=== PATIENT | female | born 1955 | race Caucasian/White ===

== ENCOUNTER → 2017-11-02 16:05 | Outpatient (CLI) | payer OTHER, SELFPAY ==
[2017-02-01 09:11] VITALS: BP 98/55; BMI 19.8
--- NOTE | 2017-11-02 16:08 | RAD_ITS ---
STUDY: X-RAY - CERVICAL SPINE REASON FOR EXAM: Female, 62 years old. pain right side of head and neck hx of ms TECHNIQUE: 6 view(s) of the cervical spine were obtained. COMPARISON: None FINDINGS: Normal anterior atlantoaxial articulation. Normal odontoid process. Normal cervical lordosis. There is multi-level endplate spondylosis. There is multi-level degenerative disc disease with multilevel disc space narrowing. There is multi-level osseous foraminal stenosis. The soft tissue structures are unremarkable. RAD/Cerv Spine 4 or 5 Views IMPRESSION: There are degenerative changes as noted above. Electronically Signed: Juan Nickerson MD at 16:28 EST , Service support ,
== END ==
PROVIDERS: Family Provider Internal Medicine; PCP Internal Medicine; Visit Provider Nurse Practitioner Family
DX: M54.2 Cervicalgia (principal)
CPT/HCPCS: 72050

== ENCOUNTER → 2018-02-06 14:52 | Outpatient (CLI) | payer OTHER, SELFPAY ==
--- NOTE | 2018-02-06 14:54 | BI_ITS ---
MAMMOGRAPHY - BILATERAL SCREENING REASON FOR EXAM: Female, 62 years old. Routine annual screening examination. PERTINENT HISTORY: Non-contributory. TECHNIQUE: Digital bilateral breast gretchen (3D mammographic acquisition) in the CC and MLO projections. 2-D mediolateral oblique (MLO) and craniocaudad (CC) views of both breasts were obtained. CAD: Full Field Digital Mammography with Computer Added Detection was performed. COMPARISON: Comparison is made with prior study dated August 30, 2016 and February 04, 2015. FINDINGS: Breast Composition: The breasts are heterogeneously dense, which may obscure small masses. There are no dominant masses or suspicious calcifications. No other significant abnormalities are identified. There has been no significant change since the prior study. BI/SCREENING MAMM (CAD), BILAT IMPRESSION: Stable bilateral screening mammogram. Yearly follow-up mammogram recommended. (A) ASSESSMENT CATEGORY: BIRADS Category 1: Negative. A letter regarding these results will be sent to the patient by the facility within 30 days. Approximately 10% of breast cancers are not detected by mammography. A normal mammogram should not delay biopsy of a clinically suspicious abnormality. [id number] Electronically Signed: Antoine Recinos MD at 8:16 EDT Tel [phone], Service support ,
--- NOTE | 2018-02-06 14:54 | BD_ITS ---
STUDY: DUAL ENERGY X-RAY ABSORPTIOMETRY / DXA REASON FOR EXAM: Female, 62 years old. The patient is postmenopausal. Loss of height. TECHNIQUE: Bone Mineral Density (BMD) measurements of lumbar spine and bilateral hips were obtained. COMPARISON: Comparison is made with prior study dated February 04, 2015. FINDINGS: Lumbar Spine (L1-L4): g/cm2 (0.887) / T-score (-2.4) / Z-score (-1.0) Findings are suggestive of osteopenia with a moderate fracture risk. Left Femur Total: g/cm2 (0.527) / T-score (-3.8) / Z-score (-2.7) Left Femoral Neck: g/cm2 (0.543) / T-score (-3.6) / Z-score (-2.2) Right Femur Total: g/cm2 (0.761) / T-score (-2.0) / Z-score (-0.9) Right Femoral Neck: g/cm2 (0.820) / T-score (-1.6) / Z-score (-0.2) The T-Scores on the most recent prior examination were: Lumbar Spine (L1-L4): There has been worsening of bone density since the previous examination. Left Femur Total: which represents a worsening of 39.9%. Right Femur Total: which represents a worsening of 4.6%. BD/Dexa Bone Density Study IMPRESSION: The patient is considered osteoporotic as outlined below according to World Jet Organization (WHO) criteria with a high fracture risk. There has been worsening of bone density since the previous examination. Reference Information: The T-score is the number of standard deviations above or below the standard which is normal for young adults at their peak bone mineral density. The World Health Organization (WHO) interprets the T-scores as follows: Above -1 Normal bone density Between -1 and -2.5 Osteopenia Equal to / or below -2.5 Osteoporosis As a practical clinical guideline, osteopenia may be graded as follows: Mild -1 through -1.5 Moderate -1.6 through -2.0 Severe -2.1 through -2.4 The Z-score is the number of standard deviations above or below age-matched controls. A Z-score of less than -1.5 would be considered abnormal. References: 1. NIH Osteoporosis and Related Bone Diseases http://www.osteo.org 2. International Society for Clinical Densitometry http://www.iscd.org 3. National Osteoporosis Foundation http://www.nof.org Electronically Signed: Antoine Recinos MD at 15:32 EDT Tel [phone], Service support ,
== END ==
PROVIDERS: Family Provider Internal Medicine; PCP Internal Medicine; Visit Provider Internal Medicine
DX: Z12.31 Encounter for screening mammogram for malignant neoplasm of breast (principal); Z78.0 Asymptomatic menopausal state
CPT/HCPCS: 77063; 77067; 77080

== ENCOUNTER → 2018-03-20 08:30 | Outpatient (CLI) | payer OTHER, SELFPAY ==
--- NOTE | 2018-03-20 08:35 | US_ITS ---
STUDY: THYROID ULTRASOUND REASON FOR EXAM: Female, 63 years old. Nodule. TECHNIQUE: Ultrasound evaluation of the thyroid was performed with real-time and static santana-scale imaging. COMPARISON: Ultrasound thyroid 11/14/2016 FINDINGS: RIGHT LOBE: 4.7 x 0.9 x 0.9 cm. Homogeneous echotexture and normal vascular flow. Mid and upper pole nodules. Cystic and solid features with small echo reflectors likely representing colloid cysts. Sharply circumscribed margins, oval shape. 9 x 5 x 4 mm and 2 x 2 x 1 mm respectively. No significant change from prior imaging, previously measuring 8 x 5 x 4 mm. LEFT LOBE: 4.1 x 0.9 x 0.8 cm. Homogeneous echotexture and normal vascular flow. No nodules. ISTHMUS: The isthmus measures 2 mm, normal echotexture. . US/Thyroid IMPRESSION: Stable right-sided thyroid nodules. 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 Unchanged compared to imaging of 11/14/2016. Follow-up surveillance imaging in approximately one year is recommended. Electronically Signed: Andrew Martins, at 11:05 EDT Tel , Service support ,
== END ==
PROVIDERS: Family Provider Internal Medicine; PCP Internal Medicine; Visit Provider Internal Medicine
DX: E04.1 Nontoxic single thyroid nodule (principal)
CPT/HCPCS: 76536

== ENCOUNTER → 2018-05-25 09:34 | Outpatient (CLI) | payer OTHER, SELFPAY ==
[2018-05-25 11:58] LABS: Absolute Lymphocyte Count 2.39 X10^3/ul (0.83-4.51); Absolute Neutrophil Count 4.1 X10^3/uL (2.0-7.7); Basophil# 0.05 X10^3/uL; Basophil% 0.7 % (0-1); Eosinophil# 0.19 X10^3/uL; Eosinophils% 2.6 % (0-5); Hematocrit 43.6 % (37-47); Hemoglobin 13.9 g/dl (12.0-15.0); Lymphocyte # 2.39 X10^3/ul (4.0); Lymphocyte % 32.8 % (19-41); Mean Corp Hgb Conc 31.9 g/gl (32-36); Mean Corpuscular Hgb 29.4 pg (27.0-32.0); Mean Corpuscular Volume 92.4 fL (81-99); Mean Platelet Vol. 8.7 fl (6.2-12.0); Monocyte# 0.54 X10^3/uL; Monocyte% 7.4 % (0-10); Neutrophil % 56.2 % (47-70); Platelet Count 520 K/mm3 (150-450); RBC Distribution Width CV 13.3 % (11.6-14.6); RBC Distribution Width SD 44.1 fl (35.1-43.9); Red Blood Count 4.72 M/mm3 (4.2-5.4); White Blood Count 7.3 K/mm3 (4.4-11.0)
[2018-05-25 11:59] LABS: POSITIVE COUNT NO; POSITIVE DIFFERENTIAL NO; POSITIVE MORPHOLOGY NO
[2018-05-25 12:22] LABS: AST(SGOT) 21 U/L (15-37); Alanine Aminotransfer ALT/SGPT 25 U/L (13-56); Albumin, Serum 3.6 g/dL (3.2-5.0); Alkaline Phosphatase 83 U/L (45-117); Anion Gap 9 (5-15); BUN 14 mg/dL (7-18); BUN/Creat Ratio 15.1 RATIO (10-20); Calcium,Total 8.8 mg/dL (8.5-10.1); Chloride 107 mmol/L (98-107); Creatinine, Serum 0.92 mg/dL (0.55-1.02); EST Glomerular Filtration Rate 65 mL/min (>60); Est Glom Filt Rate - Afr Amer 79 mL/min (>60); Globulin 3.6 g/dL (2.2-4.2); Glucose 72 mg/dL (74-106); LDH 230 U/L (84-246); Magnesium 2.5 mg/dL (1.6-2.6); Phosphorus 3.2 mg/dL (2.5-4.9); Potassium 4.3 mmol/L (3.5-5.1); Protein, Total 7.2 g/dL (6.4-8.2); Sodium Level 142 mmol/L (136-145); Uric Acid 3.8 mg/dL (2.6-6.0)
[2018-05-26 03:08] LABS: HEPATITIS B SURFACE AG Negative (Negative)
[2018-05-26 08:53] LABS: Hepatitis B Core Ab Total Negative (Negative)
== END ==
PROVIDERS: Family Provider Internal Medicine; PCP Internal Medicine
DX: G35 Multiple sclerosis (principal)
CPT/HCPCS: 36415; 80053; 83615; 83735; 84100; 84550; 85025; 86704; 87340

== ENCOUNTER → 2018-07-25 09:25 | Outpatient (CLI) | payer OTHER, SELFPAY ==
[2018-07-25 09:30] VITALS: BP 97/54; PULSE 80; RESP 16; TEMP 36.3; BMI 20.2
[2018-07-25] MEDS: DENOSUMAB 60 MG/ML ML SQ (09:42)
== END ==
PROVIDERS: Family Provider Internal Medicine; PCP Internal Medicine; Referring Provider Internal Medicine; Visit Provider Internal Medicine
DX: M81.0 Age-related osteoporosis without current pathological fracture (principal)
CPT/HCPCS: 96372; J0897

== ENCOUNTER → 2018-09-05 12:45 | Outpatient (CLI) | payer OTHER, SELFPAY ==
[2018-07-25 09:30] VITALS: BMI 20.2
--- NOTE | 2018-09-05 12:49 | ECHOD_ITS ---
Reason For Study: PHTN Procedure This was a 2D Doppler, Color Flow transthoracic echocardiogram. Exam performed in department. Left Ventricle Normal size and thickness. The estimated ejection fraction is 75 %. Stage 1 diastolic dysfunction. No regional wall motion abnormalities noted. Right Ventricle Normal size and thickness. Normal systolic function. Atria Normal left atrium. Normal right atrium. Normal atrial septum. Mitral Valve The mitral valve is structurally normal. No prolapse or stenosis seen. Trivial mitral valve insufficiency. Tricuspid Valve Normal tricuspid valve. Trivial tricuspid valve insufficiency. Right ventricular systolic pressure estimated to be 22 mmHg. Aortic Valve Normal aortic valve. Trisinus/trileaflet aortic valve. Pulmonic Valve The pulmonic valve is not well visualized. Great Vessels Normal aortic root. Normal arch. Normal inferior vena cava. Inferior vena cava collapse with sniff. Pericardium/Pleural No pericardial effusion. MMode/2D Measurements & Calculations LVIDd: 3.3 cm IVSd: 0.90 cm Ao root diam: 3.4 cm LVIDs: 2.3 cm LVPWd: 0.81 cm RVDd: 3.0 cm FS: 31.0 % LAV(MOD-bp): 28.4 ml LA A4 area: 10.7 cm2 LA dimension(2D): 2.6 cm LAV(MOD-bp) Indexed: 20.6 ml/m2 LAV(MOD-sp2): 24.3 ml LAV(MOD-sp4): 25.5 ml RA A4 area: 10.7 cm2 Time Measurements MV dec time: 0.18 sec Doppler Measurements & Calculations MV E max danny: 62.1 cm/sec Lat Peak E' Danny: 8.5 cm/sec Med Peak E' Danny: 7.6 cm/sec MV A max danny: 81.2 cm/sec E/E' lat: 7.3 E/E' med: 8.1 MV E/A: 0.77 Ao V2 max: 107.5 cm/sec LV V1 max: 87.2 cm/sec PA V2 max: 76.0 cm/sec Ao max P.6 mmHg LV V1 max P.0 mmHg TR max danny: 203.7 cm/sec TR max P.5 mmHg Interpretation Summary The estimated ejection fraction is 75 %. Stage 1 diastolic dysfunction. Trivial mitral valve insufficiency. Trivial tricuspid valve insufficiency. Right ventricular systolic pressure estimated to be 22 mmHg. Compared to echo report 08/16/2017, LV function has remained the same and RVSP has decreased from 39 to 22 mm Hg. Ordering Physician: Huseyin Mott Referring Physician: Meghna Gregory M.D. Performed By: Madison Garrison RDCS, RVT
== END ==
PROVIDERS: Family Provider Internal Medicine; PCP Internal Medicine; Referring Provider Internal Medicine Pulmonary Disease; Visit Provider Internal Medicine Pulmonary Disease
DX: I27.0 Primary pulmonary hypertension (principal)
CPT/HCPCS: 93306

== ENCOUNTER → 2018-12-03 08:25 | Outpatient (CLI) | payer OTHER, SELFPAY ==
[2018-12-03] MEDS: Acetaminophen 500 MG Tablet 1000 MG PO (08:59)
[2018-12-03] MEDS: DiphenhydrAMINE 50 MG/ML Syringe 25 MG IV (08:59)
[2018-12-03] MEDS: MethylPREDNISolone 125 MG/2 ML Vial 100 MG IV (09:00)
[2018-12-03 09:06] VITALS: BP 103/62; PULSE 96; RESP 16; TEMP 37.3; O2SAT 98; BMI 19.8
[2018-12-03] MEDS: Ocrelizumab 600mg Infusion 40 MG IV (09:41)
[2018-12-03 14:49] VITALS: BP 115/80; PULSE 86; RESP 18; O2SAT 99
== END ==
PROVIDERS: Family Provider Internal Medicine; PCP Internal Medicine; Referring Provider Psychiatry & Neurology Neurology; Visit Provider Psychiatry & Neurology Neurology
DX: G35 Multiple sclerosis (principal)
CPT/HCPCS: 96365; 96366 ×3; 96374 ×2; J7040; J7050; A4216; J2350

== ENCOUNTER → 2019-02-07 08:30 | Outpatient (CLI) | payer OTHER, SELFPAY ==
[2018-12-03 09:06] VITALS: BMI 19.8
--- NOTE | 2019-02-07 08:33 | US_ITS ---
STUDY: THYROID ULTRASOUND REASON FOR EXAM: Female, 63 years old. Nodules TECHNIQUE: Ultrasound evaluation of the thyroid was performed with real-time and static santana-scale imaging. COMPARISON: Previous study of 03/20/2018 FINDINGS: RIGHT LOBE: The right lobe of the thyroid gland measures 4.7 x 0.9 x 1.0 cm. There is a homogeneous echotexture. There are 2 complex cysts of the upper pole, the larger measuring 11 x 7 x 5 mm and the smaller 2 x 2 x 2 mm. There is minimal internal vascularity of these nodules. LEFT LOBE: The left lobe of the thyroid gland measures 3.6 x 1.0 x 0.6 cm. There is a homogeneous echotexture. There are no demonstrated solid, cystic or complex lesions. ISTHMUS: The isthmus measures 2 mm . The regional lymph nodes are normal. US/Thyroid IMPRESSION: 2 complex cysts of the upper pole of the right thyroidal lobe as detailed above. The larger cyst has slightly increased in size in the interval. The smaller cyst remains stable in the interval. Electronically Signed: Colton Serna MD at 21:04 EDT , Service support ,
--- NOTE | 2019-02-07 08:33 | BI_ITS ---
MAMMOGRAPHY - BILATERAL SCREENING REASON FOR EXAM: Female, 63 years old. Routine annual screening examination. PERTINENT HISTORY: Non-contributory. TECHNIQUE: Digital bilateral breast gretchen (3D mammographic acquisition) in the CC and MLO projections. 2-D mediolateral oblique (MLO) and craniocaudad (CC) views of both breasts were obtained. CAD: Full Field Digital Mammography with Computer Added Detection was performed. COMPARISON: Comparison is made with prior study dated February 06, 2018 and August 30, 2016. FINDINGS: Breast Composition: The breasts are heterogeneously dense, which may obscure small masses. There are no dominant masses or suspicious calcifications. No other significant abnormalities are identified. There has been no significant change since the prior study. BI/SCREENING MAMM (CAD), BILAT IMPRESSION: Stable bilateral screening mammogram. Yearly follow-up mammogram recommended. (A) ASSESSMENT CATEGORY: BIRADS Category 1: Negative. A letter regarding these results will be sent to the patient by the facility within 30 days. Approximately 10% of breast cancers are not detected by mammography. A normal mammogram should not delay biopsy of a clinically suspicious abnormality. [id number] Electronically Signed: Antoine Recinos, at 10:55 EDT , Service support ,
== END ==
PROVIDERS: Family Provider Internal Medicine; PCP Internal Medicine; Referring Provider Internal Medicine; Visit Provider Internal Medicine
DX: Z12.31 Encounter for screening mammogram for malignant neoplasm of breast (principal); E04.1 Nontoxic single thyroid nodule
CPT/HCPCS: 76536; 77063; 77067

== ENCOUNTER → 2019-06-06 08:26 | Outpatient (CLI) | payer OTHER, SELFPAY ==
[2018-12-03 09:06] VITALS: BMI 19.8
[2019-06-06 08:36] VITALS: BP 89/53; PULSE 77; RESP 18; TEMP 36.6; O2SAT 100; BMI 20.2
[2019-06-06] MEDS: Acetaminophen 500 MG Tablet 1000 MG PO (08:56)
[2019-06-06] MEDS: MethylPREDNISolone 125 MG/2 ML Vial 100 MG IV (08:57)
[2019-06-06] MEDS: DiphenhydrAMINE 50 MG/ML Syringe 25 MG IV (09:01)
[2019-06-06] MEDS: Ocrelizumab 600mg Infusion 40 MG IV (09:38)
[2019-06-06 14:41] VITALS: BP 93/51; PULSE 83; RESP 16; TEMP 36.9; O2SAT 97
== END ==
PROVIDERS: Family Provider Internal Medicine; PCP Internal Medicine; Referring Provider Psychiatry & Neurology Neurology; Visit Provider Psychiatry & Neurology Neurology
DX: G35 Multiple sclerosis (principal)
CPT/HCPCS: 96365; 96366 ×3; J7040; A4216; J2350

== ENCOUNTER → 2019-09-27 12:24 | Outpatient (CLI) | payer OTHER, SELFPAY ==
[2019-09-26 14:28] VITALS: BMI 20.2
[2019-09-27 12:39] LABS: Absolute Lymphocyte Count 1.97 X10^3/uL (0.83-4.51); Absolute Neutrophil Count 18.1 X10^3/uL (2.0-7.7); Basophil# 0.07 X10^3/uL; Basophil% 0.3 % (0-1); Eosinophil# 0.09 X10^3/uL; Eosinophils% 0.4 % (0-5); Hematocrit 42.5 % (37-47); Hemoglobin 13.7 g/dL (12.0-15.0); Lymphocyte # 1.97 X10^3/ul (4.0); Lymphocyte % 8.7 % (19-41); Mean Corp Hgb Conc 32.2 g/dL (32-36); Mean Corpuscular Hgb 30.6 pg (27.0-32.0); Mean Corpuscular Volume 95.1 fL (81-99); Mean Platelet Vol. 8.5 fl (6.2-12.0); Monocyte# 2.08 X10^3/uL; Monocyte% 9.2 % (0-10); NRBC Flagged by Analyzer 0 % (0-5); Neutrophil # 18.11 X10^3/uL (2.7-7.7); Neutrophil % 80.4 % (47-70); POSITIVE DIFFERENTIAL YES; Platelet Count 704 K/mm3 (150-450); RBC Distribution Width CV 13.1 % (11.6-14.6); RBC Distribution Width SD 45.5 fl (35.1-43.9); Red Blood Count 4.47 M/mm3 (4.2-5.4); White Blood Count 22.5 K/mm3 (4.4-11.0)
[2019-09-27 12:52] LABS: Differential Indicated SCAN CRITERIA MET
[2019-09-27 12:58] LABS: ALB/GLOB Ratio 1.1 RATIO (0.9-2.4); AST(SGOT) 21 U/L (15-37); Alanine Aminotransfer ALT/SGPT 26 U/L (13-56); Albumin, Serum 3.6 g/dL (3.2-5.0); Alkaline Phosphatase 98 U/L (45-117); Amylase 47 U/L (25-115); Anion Gap 9 (5-15); BUN 13 mg/dL (7-18); BUN/Creat Ratio 16.2 RATIO (10-20); Calcium,Total 9.2 mg/dL (8.5-10.1); Chloride 102 mmol/L (98-107); EST Glomerular Filtration Rate 76 mL/min (>60); Est Glom Filt Rate - Afr Amer 92 mL/min (>60); Globulin 3.3 g/dL (2.2-4.2); Glucose 74 mg/dL (74-106); Lipase 120 U/L (73-393); Potassium 4.8 mmol/L (3.5-5.1); Protein, Total 6.9 g/dL (6.4-8.2); Sodium Level 138 mmol/L (136-145)
[2019-09-30 13:37] LABS: Pathologist Review Reviewed
== END ==
PROVIDERS: Family Provider Internal Medicine; PCP Internal Medicine; Referring Provider Nurse Practitioner; Visit Provider Nurse Practitioner
DX: R10.84 Generalized abdominal pain (principal)
CPT/HCPCS: 80053; 82150; 83690; 85025

== ENCOUNTER → 2019-09-27 13:32 | Outpatient (CLI) | payer OTHER, SELFPAY ==
[2019-09-26 14:28] VITALS: BMI 20.2
--- NOTE | 2019-09-27 14:07 | CT_ITS ---
STUDY: CT ABDOMEN AND PELVIS WITH CONTRAST REASON FOR EXAM: Female, 64 years old. Diffuse abdominal pain for 2 days. History of multiple sclerosis. History of prior appendectomy. RADIATION DOSAGE (If Supplied By Facility): CTDIvol = ( 10.75 ) mGy, DLP = ( 216.15 ) mGycm TECHNIQUE: Transaxial images were obtained from the dome of the diaphragm to the symphysis pubis with oral contrast. Oral and amp; IV Gastrografin and amp; 100mL Isovue-300 was administered. Sagittal and coronal images were reconstructed. Individualized dose optimization techniques were used for this CT. COMPARISON: None. FINDINGS: The visualized lung bases are unremarkable. The visualized portions of the heart are within normal limits. Normal liver. Normal gallbladder and extrahepatic biliary system. Normal spleen. Normal pancreas. Normal bilateral adrenal glands. Multiple small right renal cysts. There is no renal calculi enhancing mass or hydronephrosis. Small left renal cortical cyst. There is no enhancing mass or renal calculi. No high processes. Question type I hiatal hernia. The stomach is otherwise unremarkable. Normal small intestine. There is evidence of sigmoid diverticulitis without obvious perforation. There are fluid densities along the the superior aspect of the mid sigmoid wall which may represent intramural fluid collection/abscess. Colon is otherwise grossly normal. There is non-visualization of the appendix. Normal abdominal aorta. Normal inferior vena cava. Normal retroperitoneum. Normal urinary bladder. Uterus is grossly normal. There is evidence of tubal ligation. There is no adnexal mass. There is no pelvic lymphadenopathy. No free air or free fluid is seen within the cavity. Normal abdominal wall. There are diffuse degenerative changes of the visualized lumbar spine. CT/Abdomen/Pelvis WITH Contrast IMPRESSION: 1. Sigmoid diverticulitis with intramural abscess. 2. Question small hiatal hernia. 3. Otherwise normal CT of the abdomen and pelvis. Electronically Signed: Sundar Mcfarland DO at 17:23 EST Tel [phone], Service support ,
== END ==
PROVIDERS: Family Provider Internal Medicine; PCP Internal Medicine; Referring Provider Nurse Practitioner; Visit Provider Nurse Practitioner
DX: R10.84 Generalized abdominal pain (principal)
CPT/HCPCS: 74177; Q9967

== ENCOUNTER 2019-09-27 18:15 | Inpatient (IN) | payer OTHER, SELFPAY ==
[2019-09-26 14:28] VITALS: BMI 20.2
[2019-09-27 18:16] VITALS: BP 131/95; PULSE 105; RESP 18; TEMP 36.8; O2SAT 99; BMI 19.8
--- NOTE | 2019-09-27 18:46 | ED.DCSUM_ITS ---
- ER Visit Summary Date of Service: 09/27/19 Chief Complaint: [Abdominal pain] History of Present Illness: The patient is a 64 F [Zentz to the emergency department complaint of abdominal pain for last 3 days. [facility] yesterday and diagnosed with a urinary tract infection. Patient continued to have abdominal pain and was seen by nurse practitioner in her primary care physician's office today who ordered lab work and a CT scan of the abdomen pelvis. Patient was told to come to the emergency department. Patient had an elevated white blood cell count of 22,[address] scan that showed acute diverticulitis with an abscess. Patient has no history of diverticulitis. Patient has had prior appendectomy. Patient has a history of MS. Patient denies any fever. She denies any blood in her stool or black tarry stool. She denies urinary symptoms.] Physical Examination: [HEENT-PERRLA, EOMI. Cranial nerves II through XII grossly intact. TMs clear. Mucous membranes moist. No adenopathy. Cardiovascular-regular rate and rhythm without murmur or ectopy Lungs-clear to auscultation, chest wall stable without crepitus or subcu emphysema Abdomen-normoactive bowel sounds, soft. Patient has tenderness diffusely over the suprapubic region and the left lower quadrant. There is guarding. There is no rebound, rigidity, or pedal signs. Extremities-intact ?4, normal range of motion, normal pulses, atraumatic] Test Results: [Labs already performed in computer showed an elevated white blood cell count of 22,000. Chemistries unremarkable. LFTs unremarkable. CT scan of the abdomen pelvis showed acute diverticulitis with an abscess.] Emergency Department Course and Treatment: [She was started on Cipro and Flagyl IV. Case discussed with general surgeon on-call Dr. Mirza who will evaluate patient for admission] Treatment Plan: [Admit for IV antibiotics] Disposition: [Admit Impression: [Acute diverticulitis with abscess] This note was generated with [employer] dictation software. It may contain incorrect words, spelling, and punctuation that were not noted in review of the chart prior to signing ED Disposition - Plan for ED Patient: Referrals: Meghna Gregory DO [Primary Care Provider] -
[2019-09-27] MEDS: metroNIDAZOLE 500 MG/100 ML BAG 100 MG IV (18:58)
[2019-09-27 19:00] VITALS: BMI 19.8
--- NOTE | 2019-09-27 19:11 | HP.PCM_ITS ---
Problem List (1) Diverticulitis of large intestine with abscess Status: Acute Qualifiers: Diverticulitis bleeding: without bleeding Qualified Code(s): K57.20 - Diverticulitis of large intestine with perforation and abscess without bleeding History of Present Illness Date of Admission: 09/27/19 The patient is a 64 year old F [facility] yesterday with abdominal pain. She presented to her PCPs today and they ordered labs and a CT scan. She says she has been having lower pelvic pain for the last few days. No fevers or chills. She is never had diverticulitis in the past. She had a colonoscopy 5 years ago and a polyp was removed. Past Medical History Allergies Sulfa (Sulfonamide Antibiotics) Allergy (Intermediate, Verified 09/27/19 18:16) Hives Home Medications: Ambulatory Orders Medication Instructions Recorded Baclofen 10 mg PO TID 01/30/17 Gabapentin [Neurontin] 100 mg PO BIDCM 01/30/17 Gabapentin [Neurontin] 300 mg PO QHS 01/30/17 Alendronate Sodium 35 mg PO TOBIAS 06/06/19 Atenolol [Tenormin (beta Deuce)] 12.5 mg PO DAILY 06/06/19 Cholecalciferol (Vitamin D3) 2,000 unit PO DAILY 06/06/19 [Vitamin D3] Surgical History: Surgical History (Last Updated 09/26/19 @ 14:28 by Kevin Walker) History of appendectomy Z90.49 History of tonsillectomy Z90.89 Surgical History: - - Tubal ligation Smoking Status: Never smoker Tobacco Use: Non-smoker - *Family History Maternal Family History: Family History (Last Updated 09/26/19 @ 14:28 by Kevin Walker) Other Diabetes Review of Systems Constitutional: Denies: Anorexia, Fever Eyes: Denies: Blurred vision HEENT: Denies: Difficulty Swallowing Cardiovascular: Denies: Chest Pain Respiratory: Denies: Cough, Shortness of Breath Gastrointestinal: Reports: Abdominal Pain. Denies: Diarrhea, Hematemesis, Hematochezia, Nausea, Vomiting Genitourinary: Denies: Dysuria, Frequency Skin: Denies: Jaundice Neurological: Reports: - - History of MS. Denies: Balance problems Psychiatric: Denies: Anxiety Hematologic/ Lymphatic: Denies: Anemia VTE Information - Inpt Only VTE Present on Admission: No VTE Mechan Device Prophylaxis: SCD's Patient Problems: Active and Suspected Problems Diverticulitis of large intestine with abscess (Acute) - Physical Exam Vitals/I&O's: Vital Signs Temp Pulse Resp BP Pulse Ox 98.2 F 105 H 18 131/95 H 99 09/27/19 18:16 09/27/19 18:16 09/27/19 18:16 09/27/19 18:16 09/27/19 18:16 Oxygen Delivery Method Room Air Weight: 98 lb Body Mass Index (BMI) 19.8 General: Alert, Oriented x3 Neck: No JVD Lungs: Normal air movement Cardiovascular: Regular Rhythm, Tachycardic Abdomen: Soft, Non-Distended, Tender - Tender in the lower abdomen with no guarding or rebound Extremities: No cyanosis Skin: No rashes Musculoskeletal: No Muscle Wasting Neurological: Cranial nerves II-XII grossly intact Psych/Mental Status: Normal Affect Current Medications Ciprofloxacin (Cipro) 400 mg in 200 mls @ 200 mls/hr IV X1 ONE Stop: 09/27/19 19:32 Metronidazole (Flagyl) 500 mg in 100 mls @ 100 mls/hr IV X1 ONE Stop: 09/27/19 19:32 Last Admin: 09/27/19 18:58 Dose: 100 mls/hr Documented by: Sodium Chloride () 10 - 40 ml IV UD PRN PRN Reason: SALINE FLUSH Assessment/Plan All Active Problems Diverticulitis of large intestine with abscess (Acute) UTI (urinary tract infection) (Acute) 64-year-old female with diverticulitis with abscess 1. The patient had a lab panel done yesterday at the [facility]. She was diagnosed with UTI. She had sterile pyuria on dipstick. She is not having any urinary symptoms. Patient had a CT scan and labs done today. CT scan shows a small abscess and diverticulitis of the sigmoid colon. Lab work shows a white count of 22 with left shift. 2. The abscess does not seem accessible by IR. It is also small. I recommended bowel rest and IV fluids and antibiotics. I will recheck a CT scan in 2-3 days to make sure it is resolving. I will start her on antibiotics and give her oral meds with sips of water. I advised her that if anything im mediately worsened I would repeat a CT scan earlier and she may need surgery. The patient understands the treatment course and is agreeable. Dionte Alva MD Pager: [facility] [address] [place] [address] [address] [place] [address] Office:
[2019-09-27 19:15] VITALS: BP 121/69; PULSE 93; RESP 20; TEMP 37; O2SAT 98
[2019-09-27 20:01] VITALS: BMI 19.2
[2019-09-27 20:04] VITALS: BP 121/70; PULSE 81; RESP 16; TEMP 36.6; O2SAT 98
[2019-09-27] MEDS: 0.9% Normal Saline 1,000 ML 125 ML IV (20:19)
[2019-09-27] MEDS: Ciprofloxacin 400 MG/200 ML BAG 200 MG IV (21:14)
[2019-09-27] MEDS: Baclofen 10 MG Tablet PO (22:15)
[2019-09-27] MEDS: Gabapentin 300 MG Capsule PO (22:15)
[2019-09-27] MEDS: Piperacil/Tazobactam 3.375 GM/50 ML ML IV (22:23)
--- NOTE | 2019-09-27 22:33 | NURSING ---
pt refusing scd's.
[2019-09-28 02:26] VITALS: BP 97/49; PULSE 91; RESP 16; TEMP 36.7; O2SAT 97
[2019-09-28] MEDS: 0.9% Normal Saline 1,000 ML 125 ML IV ×3 (05:28→21:32)
[2019-09-28] MEDS: Piperacil/Tazobactam 3.375 GM/50 ML ML IV ×3 (05:29→21:30)
[2019-09-28] MEDS: Baclofen 10 MG Tablet PO ×3 (05:36→21:30)
[2019-09-28 07:16] LABS: Absolute Lymphocyte Count 1.48 X10^3/uL (0.83-4.51); Basophil# 0.07 X10^3/uL; Basophil% 0.5 % (0-1); Eosinophil# 0.19 X10^3/uL; Eosinophils% 1.3 % (0-5); Hematocrit 35.6 % (37-47); Hemoglobin 11.3 g/dL (12.0-15.0); Lymphocyte # 1.48 X10^3/ul (4.0); Lymphocyte % 10.4 % (19-41); Mean Corp Hgb Conc 31.7 g/dL (32-36); Mean Corpuscular Hgb 29.8 pg (27.0-32.0); Mean Corpuscular Volume 93.9 fL (81-99); Monocyte# 1.34 X10^3/uL; Monocyte% 9.4 % (0-10); NRBC Flagged by Analyzer 0 % (0-5); Neutrophil # 11.04 X10^3/uL (2.7-7.7); Neutrophil % 77.8 % (47-70); Platelet Count 488 K/mm3 (150-450); RBC Distribution Width SD 44.9 fl (35.1-43.9); Red Blood Count 3.79 M/mm3 (4.2-5.4); White Blood Count 14.2 K/mm3 (4.4-11.0)
[2019-09-28 07:45] LABS: Anion Gap 4 (5-15); BUN 10 mg/dL (7-18); BUN/Creat Ratio 14.2 RATIO (10-20); Calcium,Total 7.9 mg/dL (8.5-10.1); Chloride 117 mmol/L (98-107); EST Glomerular Filtration Rate 89 mL/min (>60); Est Glom Filt Rate - Afr Amer 107 mL/min (>60); Estimated Creatinine Clearance 55.37 ml/min; Glucose 95 mg/dL (74-106); Potassium 3.7 mmol/L (3.5-5.1); Sodium Level 145 mmol/L (136-145)
--- NOTE | 2019-09-28 07:51 | PN.SURG_ITS ---
Patient Problems: Active and Suspected Problems Diverticulitis of large intestine with abscess (Acute) Subjective: Patient reports she is feeling better than yesterday but still having some lower abdominal pain. No nausea or vomiting. - Physical Exam Vitals/I&O's: Vital Signs Temp Pulse Resp BP Pulse Ox 98.1 F 91 16 97/49 L 97 09/28/19 02:26 09/28/19 02:26 09/28/19 02:26 09/28/19 02:26 09/28/19 02:26 Oxygen Delivery Method Room Air Weight: 95 lb 3.835 oz Body Mass Index (BMI) 19.2 Intake and Output for Last 24 Hours 09/26/19 09/27/19 09/28/19 23:59 23:59 23:59 Intake Total 853.58 / 853.58 1000.92 / 1000.92 Output Total 300 / 300 525 / 525 Balance 553.58 / 553.58 475.92 / 475.92 General: Alert, Oriented x3 Neck: No JVD Lungs: Normal air movement Cardiovascular: Regular rate, Regular Rhythm Abdomen: Soft, Non-Distended, Tender - Tender in the pelvic region with no guarding or rebound Laboratory Results 09/28/19 06:54: WBC 14.2 H, RBC 3.79 L, Hgb 11.3 L, Hct 35.6 L, MCV 93.9, MCH 29.8, MCHC 31.7 L, RDW Std Deviation 44.9 H, RDW Coeff of May 13.0, Plt Count 488 H, MPV 8.0, Immature Gran % (Auto) 0.600, Neut % (Auto) 77.8 H, Lymph % (Auto) 10.4 L, [place] % (Auto) 9.4, Eos % (Auto) 1.3, Baso % (Auto) 0.5, Absolute Neuts (auto) 11.0 H, Absolute Lymphs (auto) 1.48, Nucleated RBC % 0 09/28/19 06:54: Sodium 145, Potassium 3.7, Chloride 117 H, Carbon Dioxide 24.0, Anion Gap 4 L, BUN 10, Creatinine 0.70, Estim Creat Clear Calc 55.37, Est GFR (MDRD) Af Amer 107, Est GFR (MDRD) Non-Af 89, BUN/Creatinine Ratio 14.2, Glucose 95, Calcium 7.9 L Current Medications Acetaminophen (Tylenol) 650 mg PO Q6H PRN PRN PRN Reason: Pain Score 1-10/10 Alendronate Sodium (Fosamax) 35 mg PO Hubbard@0700 [facility] Atenolol (Tenormin (Beta Deuce)) 12.5 mg PO DAILY [facility] Baclofen (Lioresal) 10 mg PO TID [facility] Last Admin: 09/28/19 05:36 Dose: 10 mg Documented by: Enoxaparin Sodium (Lovenox) 40 mg SC DAILY [facility] Gabapentin (Neurontin) 100 mg PO BIDCM [facility] Gabapentin (Neurontin) 300 mg PO QHS [facility] Last Admin: 09/27/19 22:15 Dose: 300 mg Documented by: Sodium Chloride () 1,000 mls @ 125 mls/hr IV .Q8H [facility] Last Admin: 09/28/19 05:28 Dose: 125 mls/hr Documented by: Piperacillin Sod/Tazobactam Sod (Zosyn) 3.375 gm in 50 mls @ 12.5 mls/hr IV Q8 [facility] Last Admin: 09/28/19 05:29 Dose: 12.5 mls/hr Documented by: Sodium Chloride () 250 mls @ 15 mls/hr IV .[id number] PRN PRN Reason: Saline Flush Last Infusion: 09/28/19 05:30 Dose: 0 mls/hr Documented by: Morphine Sulfate () 2 - 4 mg IV Q2H PRN PRN PRN Reason: Pain Score 6-10/10 Morphine Sulfate () 2 - 4 mg IV Q2H PRN PRN PRN Reason: Pain Score 6-10/10 Ondansetron HCl (Zofran) 4 mg IV Q6H PRN PRN PRN Reason: NAUSEA/VOMITING Pantoprazole Sodium (Protonix) 40 mg PO DAILY [facility] Sodium Chloride () 10 - 40 ml IV UD PRN PRN Reason: SALINE FLUSH Medical Necessity - Tobacco Use Smoking Status: Never smoker Tobacco Use: Non-smoker Assessment/Plan All Active Problems Diverticulitis of large intestine with abscess (Acute) UTI (urinary tract infection) (Acute) 64-year-old female with diverticulitis with abscess 1. Patient reports improvement in symptoms. The patient has a white count that is decreasing. I would like to wait least 48 hours for starting a diet. Continue IV fluids and n.p.o. status. Repeat labs in the morning. Dionte Alva MD Pager: [facility] [address] [place] [address] [address] [place] [address] Office:
[2019-09-28 08:44] VITALS: BP 101/61; PULSE 76; RESP 16; TEMP 36.7; O2SAT 99
[2019-09-28] MEDS: Gabapentin 100 MG Capsule PO ×2 (08:47→18:02)
[2019-09-28] MEDS: Acetaminophen 325 MG Tablet 650 MG PO (08:49)
[2019-09-28] MEDS: Enoxaparin 40 MG/0.4 ML Syringe SC (10:52)
[2019-09-28] MEDS: Pantoprazole Sodium 40 MG Tablet PO (10:53)
[2019-09-28] MEDS: Atenolol 25 MG Tablet 12.5 MG PO (10:53)
[2019-09-28] MEDS: 0.9% Saline Lock 10 ML Syringe IV (14:17)
[2019-09-28 14:24] VITALS: BP 109/66; PULSE 65; RESP 16; TEMP 36.7; O2SAT 98
--- NOTE | 2019-09-28 14:56 | CM.UR ---
RN CM Assessment Introduced role of RN CM to patient. Patient is alert and able to participate in RN CM Assessment. Care providers, pharmacy, and demographics verified. No family at bedside. Presentation: abd pain x 3 days Admit Dx: diverticulitis Re-Admit: No Barriers/Issues: None PCP: Dr. Gregory Specialists: Dr. Mott (pulm) and Dr. Guzman (neurocare). [facility] Insurance: [facility] paz rule Rx Benefit: Yes LNOK: josh LW/HPOA: Has but not on file. , Josh, is POA. They just moved and she is unsure if will be able to find. She verb understanding that we need a copy on file. Living Arrangements: just moved into a new house. 1 story. Lives with . ADL?s: independent Transportation: self or . DME: wheelchair, walker, cane and grab bars DME co: no preference. HHC: None SNF: None Goal: return home. Denies needs. DC PLAN: Home, no needs anticipated. Benita Whalen RN, CCM.
[2019-09-28 18:10] VITALS: BP 113/64; PULSE 73; RESP 16; TEMP 36.6; O2SAT 96
[2019-09-28 19:44] VITALS: BP 122/56; PULSE 80; RESP 16; TEMP 36.9; O2SAT 98
[2019-09-28] MEDS: Gabapentin 300 MG Capsule PO (21:30)
[2019-09-29 02:21] VITALS: BP 95/62; PULSE 71; RESP 16; TEMP 36.6; O2SAT 97
[2019-09-29] MEDS: 0.9% Normal Saline 1,000 ML 125 ML IV (05:38)
[2019-09-29] MEDS: Baclofen 10 MG Tablet PO ×3 (05:40→20:59)
[2019-09-29] MEDS: Piperacil/Tazobactam 3.375 GM/50 ML ML IV ×3 (05:40→21:01)
[2019-09-29 07:12] LABS: Absolute Lymphocyte Count 1.43 X10^3/uL (0.83-4.51); Absolute Neutrophil Count 7.4 X10^3/uL (2.0-7.7); Basophil# 0.05 X10^3/uL; Basophil% 0.5 % (0-1); Eosinophil# 0.27 X10^3/uL; Eosinophils% 2.7 % (0-5); Hematocrit 34.9 % (37-47); Hemoglobin 10.9 g/dL (12.0-15.0); Lymphocyte # 1.43 X10^3/ul (4.0); Lymphocyte % 14.5 % (19-41); Mean Corp Hgb Conc 31.2 g/dL (32-36); Mean Corpuscular Hgb 30.1 pg (27.0-32.0); Mean Corpuscular Volume 96.4 fL (81-99); Mean Platelet Vol. 8.1 fl (6.2-12.0); Monocyte# 0.61 X10^3/uL; Monocyte% 6.2 % (0-10); NRBC Flagged by Analyzer 0 % (0-5); Neutrophil # 7.42 X10^3/uL (2.7-7.7); Neutrophil % 75.3 % (47-70); Platelet Count 485 K/mm3 (150-450); RBC Distribution Width CV 13.1 % (11.6-14.6); RBC Distribution Width SD 46.6 fl (35.1-43.9); Red Blood Count 3.62 M/mm3 (4.2-5.4); White Blood Count 9.9 K/mm3 (4.4-11.0)
[2019-09-29 07:24] LABS: Anion Gap 10 (5-15); BUN 12 mg/dL (7-18); Calcium,Total 7.3 mg/dL (8.5-10.1); Chloride 117 mmol/L (98-107); EST Glomerular Filtration Rate 107 mL/min (>60); Est Glom Filt Rate - Afr Amer 129 mL/min (>60); Glucose 51 mg/dL (74-106); Potassium 3.8 mmol/L (3.5-5.1); Sodium Level 143 mmol/L (136-145)
[2019-09-29 07:50] VITALS: BP 104/51; PULSE 71; RESP 16; TEMP 36.8; O2SAT 100
[2019-09-29] MEDS: Dextrose 5%/0.9% NaCl 1,000 ML 75 ML IV ×2 (07:57→20:55)
--- NOTE | 2019-09-29 08:38 | PCM.PN.SRG ---
Patient Problems: Active and Suspected Problems Diverticulitis of large intestine with abscess (Acute) Subjective: Patient reports her pain is improved but still present. She is passing gas with no nausea or vomiting. - Physical Exam Vitals/I&O's: Vital Signs Temp Pulse Resp BP Pulse Ox 97.8 F 71 16 95/62 97 09/29/19 02:21 09/29/19 02:21 09/29/19 02:21 09/29/19 02:21 09/29/19 02:21 Oxygen Delivery Method Room Air Weight: 95 lb 3.835 oz Body Mass Index (BMI) 19.2 Intake and Output for Last 24 Hours 09/27/19 09/28/19 09/29/19 23:59 23:59 23:59 Intake Total 853.58 / 853.58 3046.75 / 3046.75 1368.75 / 1368.75 Output Total 300 / 300 1475 / 1475 1000 / 1000 Balance 553.58 / 553.58 1571.75 / 1571.75 368.75 / 368.75 General: Alert, Oriented x3 Neck: No JVD Lungs: Normal air movement Cardiovascular: Regular rate, Regular Rhythm Abdomen: Soft, Tender - Tender in the lower abdominal region with no guarding or rebound Laboratory Results 09/29/19 06:45: WBC 9.9, RBC 3.62 L, Hgb 10.9 L, Hct 34.9 L, MCV 96.4, MCH 30.1, MCHC 31.2 L, RDW Std Deviation 46.6 H, RDW Coeff of May 13.1, Plt Count 485 H, MPV 8.1, Immature Gran % (Auto) 0.800, Neut % (Auto) 75.3 H, Lymph % (Auto) 14.5 L, Iron % (Auto) 6.2, Eos % (Auto) 2.7, Baso % (Auto) 0.5, Absolute Neuts (auto) 7.4, Absolute Lymphs (auto) 1.43, Nucleated RBC % 0 09/29/19 06:45: Sodium 143, Potassium 3.8, Chloride 117 H, Carbon Dioxide 16.0 L, Anion Gap 10, BUN 12, Creatinine 0.60, Estim Creat Clear Calc 64.60, Est GFR (MDRD) Af Amer 129, Est GFR (MDRD) Non-Af 107, BUN/Creatinine Ratio 20.0, Glucose 51 L, Calcium 7.3 L Current Medications Acetaminophen (Tylenol) 650 mg PO Q6H PRN PRN PRN Reason: Pain Score 1-10/10 Last Admin: 09/28/19 08:49 Dose: 650 mg Documented by: Alendronate Sodium (Fosamax) 35 mg PO Hubbard@0700 [facility] Last Admin: 09/29/19 07:58 Dose: Not Given Documented by: Atenolol (Tenormin (Beta Deuce)) 12.5 mg PO DAILY [facility] Last Admin: 09/28/19 10:53 Dose: 12.5 mg Documented by: Baclofen (Lioresal) 10 mg PO TID [facility] Last Admin: 09/29/19 05:40 Dose: 10 mg Documented by: Enoxaparin Sodium (Lovenox) 40 mg SC DAILY [facility] Last Admin: 09/28/19 10:52 Dose: 40 mg Documented by: Gabapentin (Neurontin) 100 mg PO BIDCM [facility] Last Admin: 09/28/19 18:02 Dose: 100 mg Documented by: Gabapentin (Neurontin) 300 mg PO QHS [facility] Last Admin: 09/28/19 21:30 Dose: 300 mg Documented by: Piperacillin Sod/Tazobactam Sod (Zosyn) 3.375 gm in 50 mls @ 12.5 mls/hr IV Q8 [facility] Last Admin: 09/29/19 05:40 Dose: 12.5 mls/hr Documented by: Sodium Chloride () 250 mls @ 15 mls/hr IV .[id number] PRN PRN Reason: Saline Flush Last Infusion: 09/29/19 05:40 Dose: 0 mls/hr Documented by: Dextrose/Sodium Chloride (Dextrose 5%/0.9% Nacl) 1,000 mls @ 75 mls/hr IV .[id number] [facility] Last Admin: 09/29/19 07:57 Dose: 75 mls/hr Documented by: Morphine Sulfate () 2 - 4 mg IV Q2H PRN PRN PRN Reason: Pain Score 6-10/10 Morphine Sulfate () 2 - 4 mg IV Q2H PRN PRN PRN Reason: Pain Score 6-10/10 Ondansetron HCl (Zofran) 4 mg IV Q6H PRN PRN PRN Reason: NAUSEA/VOMITING Pantoprazole Sodium (Protonix) 40 mg PO DAILY [facility] Last Admin: 09/28/19 10:53 Dose: 40 mg Documented by: Sodium Chloride () 10 - 40 ml IV UD PRN PRN Reason: SALINE FLUSH Last Admin: 09/28/19 14:17 Dose: 20 ml Documented by: Medical Necessity - Tobacco Use Smoking Status: Never smoker Tobacco Use: Non-smoker Assessment/Plan All Active Problems Diverticulitis of large intestine with abscess (Acute) UTI (urinary tract infection) (Acute) 64-year-old female with diverticulitis and abscess 1. The patient's white count is normal today and she says her pain is minimal. I will try clear liquid diet but I do not want to push the diet too quickly. If she tolerates this with no increase in pain I will advance her to regular diet tomorrow possible discharge tomorrow. If pain increases at any time I will repeat CT scan. Continue antibiotics. Dionte Alva MD Pager: [facility] [address] [place] [address], [address] [place] [address] Office:
[2019-09-29] MEDS: Atenolol 25 MG Tablet 12.5 MG PO (10:01)
[2019-09-29] MEDS: Gabapentin 100 MG Capsule PO ×2 (10:01→16:23)
[2019-09-29] MEDS: Pantoprazole Sodium 40 MG Tablet PO (10:01)
[2019-09-29] MEDS: Enoxaparin 40 MG/0.4 ML Syringe SC (10:02)
[2019-09-29] MEDS: Acetaminophen 325 MG Tablet 650 MG PO (11:36)
[2019-09-29] MEDS: 0.9% Saline Lock 10 ML Syringe IV (11:40)
[2019-09-29 14:00] VITALS: BP 98/62; PULSE 62; RESP 16; TEMP 36.5; O2SAT 97
[2019-09-29 20:38] VITALS: BP 124/70; PULSE 61; RESP 16; TEMP 36.6; O2SAT 100
[2019-09-29] MEDS: Gabapentin 300 MG Capsule PO (21:00)
[2019-09-30] MEDS: Acetaminophen 325 MG Tablet 650 MG PO (02:00)
[2019-09-30 02:01] VITALS: BP 115/65; PULSE 65; RESP 16; TEMP 36.4; O2SAT 97
[2019-09-30] MEDS: Piperacil/Tazobactam 3.375 GM/50 ML ML IV ×2 (05:32→14:51)
[2019-09-30] MEDS: Baclofen 10 MG Tablet PO ×2 (05:32→14:51)
[2019-09-30 05:47] LABS: Absolute Lymphocyte Count 1.39 X10^3/uL (0.83-4.51); Absolute Neutrophil Count 3.9 X10^3/uL (2.0-7.7); Basophil# 0.06 X10^3/uL; Basophil% 0.9 % (0-1); Eosinophil# 0.47 X10^3/uL; Eosinophils% 7.2 % (0-5); Hematocrit 34.7 % (37-47); Hemoglobin 10.9 g/dL (12.0-15.0); Lymphocyte # 1.39 X10^3/ul (4.0); Lymphocyte % 21.3 % (19-41); Mean Corp Hgb Conc 31.4 g/dL (32-36); Mean Corpuscular Hgb 29.5 pg (27.0-32.0); Monocyte# 0.65 X10^3/uL; NRBC Flagged by Analyzer 0 % (0-5); Neutrophil # 3.89 X10^3/uL (2.7-7.7); Neutrophil % 59.5 % (47-70); Platelet Count 504 K/mm3 (150-450); RBC Distribution Width CV 13.4 % (11.6-14.6); Red Blood Count 3.69 M/mm3 (4.2-5.4); White Blood Count 6.5 K/mm3 (4.4-11.0)
[2019-09-30 06:13] LABS: Anion Gap 4 (5-15); BUN 5 mg/dL (7-18); BUN/Creat Ratio 6.5 RATIO (10-20); Calcium,Total 7.7 mg/dL (8.5-10.1); Chloride 119 mmol/L (98-107); Creatinine, Serum 0.77 mg/dL (0.55-1.02); EST Glomerular Filtration Rate 80 mL/min (>60); Est Glom Filt Rate - Afr Amer 96 mL/min (>60); Estimated Creatinine Clearance 50.34 ml/min; Glucose 97 mg/dL (74-106); Potassium 3.5 mmol/L (3.5-5.1); Sodium Level 147 mmol/L (136-145)
--- NOTE | 2019-09-30 07:57 | PN.SURG_ITS ---
Patient Problems: Active and Suspected Problems Diverticulitis of large intestine with abscess (Acute) Subjective: Patient reports no abdominal pain. No nausea or vomiting besides after drinking Ensure clear. Other than that she tolerated clears well with no abdominal pain. - Physical Exam Vitals/I&O's: Vital Signs Temp Pulse Resp BP Pulse Ox 97.5 F L 65 16 115/65 97 09/30/19 02:01 09/30/19 02:01 09/30/19 02:01 09/30/19 02:01 09/30/19 02:01 Oxygen Delivery Method Room Air Weight: 95 lb 3.835 oz Body Mass Index (BMI) 19.2 Intake and Output for Last 24 Hours 09/28/19 09/29/19 09/30/19 23:59 23:59 23:59 Intake Total 3046.75 / 3046.75 3519.00 / 3963.00 811.75 / 811.75 Output Total 1475 / 1475 2500 / 2900 900 / 900 Balance 1571.75 / 1571.75 1019.00 / 1063.00 -88.25 / -88.25 General: Alert, Oriented x3 Lungs: Normal air movement Abdomen: Soft, Non Tender, Non-Distended Laboratory Results 09/30/19 05:27: WBC 6.5, RBC 3.69 L, Hgb 10.9 L, Hct 34.7 L, MCV 94.0, MCH 29.5, MCHC 31.4 L, RDW Std Deviation 46.0 H, RDW Coeff of May 13.4, Plt Count 504 H, MPV 8.0, Immature Gran % (Auto) 1.100 H, Neut % (Auto) 59.5, Lymph % (Auto) 21.3, [place] % (Auto) 10.0, Eos % (Auto) 7.2 H, Baso % (Auto) 0.9, Absolute Neuts (auto) 3.9, Absolute Lymphs (auto) 1.39, Nucleated RBC % 0 09/30/19 05:27: Sodium 147 H, Potassium 3.5, Chloride 119 H, Carbon Dioxide 24.0, Anion Gap 4 L, BUN 5 L, Creatinine 0.77, Estim Creat Clear Calc 50.34, Est GFR (MDRD) Af Amer 96, Est GFR (MDRD) Non-Af 80, BUN/Creatinine Ratio 6.5 L, Glucose 97, Calcium 7.7 L Current Medications Acetaminophen (Tylenol) 650 mg PO Q6H PRN PRN PRN Reason: Pain Score 1-10/10 Last Admin: 09/30/19 02:00 Dose: 650 mg Documented by: Alendronate Sodium (Fosamax) 35 mg PO Hubbard@0700 [facility] Last Admin: 09/29/19 07:58 Dose: Not Given Documented by: Atenolol (Tenormin (Beta Deuce)) 12.5 mg PO DAILY [facility] Last Admin: 09/29/19 10:01 Dose: 12.5 mg Documented by: Baclofen (Lioresal) 10 mg PO TID [facility] Last Admin: 09/30/19 05:32 Dose: 10 mg Documented by: Enoxaparin Sodium (Lovenox) 40 mg SC DAILY [facility] Last Admin: 09/29/19 10:02 Dose: 40 mg Documented by: Gabapentin (Neurontin) 100 mg PO BIDCM [facility] Last Admin: 09/29/19 16:23 Dose: 100 mg Documented by: Gabapentin (Neurontin) 300 mg PO QHS [facility] Last Admin: 09/29/19 21:00 Dose: 300 mg Documented by: Piperacillin Sod/Tazobactam Sod (Zosyn) 3.375 gm in 50 mls @ 12.5 mls/hr IV Q8 [facility] Last Admin: 09/30/19 05:32 Dose: 12.5 mls/hr Documented by: Sodium Chloride () 250 mls @ 15 mls/hr IV .[id number] PRN PRN Reason: Saline Flush Last Infusion: 09/30/19 05:32 Dose: 0 mls/hr Documented by: Morphine Sulfate () 2 - 4 mg IV Q2H PRN PRN PRN Reason: Pain Score 6-10/10 Morphine Sulfate () 2 - 4 mg IV Q2H PRN PRN PRN Reason: Pain Score 6-10/10 Ondansetron HCl (Zofran) 4 mg IV Q6H PRN PRN PRN Reason: NAUSEA/VOMITING Pantoprazole Sodium (Protonix) 40 mg PO DAILY [facility] Last Admin: 09/29/19 10:01 Dose: 40 mg Documented by: Sodium Chloride () 10 - 40 ml IV UD PRN PRN Reason: SALINE FLUSH Last Admin: 09/29/19 11:40 Dose: 10 ml Documented by: Medical Necessity - Tobacco Use Smoking Status: Never smoker Tobacco Use: Non-smoker Assessment/Plan All Active Problems Diverticulitis of large intestine with abscess (Acute) UTI (urinary tract infection) (Acute) 64-year-old female with diverticulitis with abscess 1. The patient reports she is doing well with no pain. I will start her on a regular diet. She if she tolerates this she will be discharged home on oral antibiotics and have a repeat CAT scan in a week. If the oral diet starts producing abdominal pain I will repeat a CAT scan today. Dionte Alva MD Pager: [facility] [address] [place] [address], [address] [place] [address] Office:
[2019-09-30 08:22] VITALS: BP 124/49; PULSE 61; RESP 16; TEMP 36.6; O2SAT 98
[2019-09-30] MEDS: Atenolol 25 MG Tablet 12.5 MG PO (08:28)
[2019-09-30] MEDS: Enoxaparin 40 MG/0.4 ML Syringe SC (08:30)
[2019-09-30] MEDS: Pantoprazole Sodium 40 MG Tablet PO (08:30)
[2019-09-30] MEDS: Gabapentin 100 MG Capsule PO (08:31)
--- NOTE | 2019-09-30 14:09 | CHAPLAIN ---
Type of Pastoral Visit _x__ Initial Visit ___ Follow-up Visit ___ On-call Visit ___ General Patient Visit ___ Spiritual Assessment ___ Family Conference ___ Bereavement ___ Rapid Response ___ Code Blue ___ Other (describe below) Pastoral Care Referral From _x__ Patient ___ Family ___ Nurse ___ Physician ___ Formula Bottler ___ Buildings And Grounds Director ___ Other (describe below) Sacrament/Intervention _x__ Active listening ___ Anointing ___ Methodist ___ Bereavement ___ Communion ___ Maryana exploration ___ _x__ Life review ___ Prayer ___ Reconciliation ___ Sacrament of Sick ___ Supportive presence ___ Wedding ___ Other (describe below) Pastoral Comments
[2019-09-30 14:22] VITALS: BP 109/74; PULSE 74; RESP 16; TEMP 36.6; O2SAT 98
[2019-09-30] MEDS: 0.9% Saline Lock 10 ML Syringe IV (14:51)
--- NOTE | 2019-09-30 14:55 | PCM.DC ---
- Discharge Diagnoses Current Active Problems: Current Active and Chronic Problems Diverticulitis of large intestine with abscess (Acute) You will use the following diet at home:: Regular Your food should be the consistency of: Regular Discharge Activity: No Restrictions, May Drive, May Shower Call your doctor if your incision/area has: Increased Pain/ Swelling Call your doctor if you observe: Fever of 101 or Higher Allergies/Adverse Reactions: Allergies Sulfa (Sulfonamide Antibiotics) Allergy (Intermediate, Verified 09/27/19 18:16) Hives Medications to take at Discharge Baclofen 10 mg PO TID 01/30/17 Gabapentin [Neurontin] 100 mg PO BIDCM 01/30/17 Gabapentin [Neurontin] 300 mg PO QHS 01/30/17 Alendronate Sodium 35 mg PO [facility]BIAS 06/06/19 Atenolol [Tenormin (beta pat)] 12.5 mg PO DAILY 06/06/19 Cholecalciferol (Vitamin D3) [Vitamin D3] 2,000 unit PO DAILY 06/06/19 Amoxicillin/Potassium Clav [Augmentin 875-125 Tablet] 1 ea PO BID 10 Days #20 tab 09/30/19 The following prescriptions were given: Amoxicillin/Potassium Clav [Augmentin 875-125 Tablet] 1 ea PO BID 10 Days #20 tab Transmission Status: Pending to [facility] Primary Care Physician: Meghna Gregory DO [Primary Care Provider] - Test Results: Test results from this visit will be discussed in further detail at your follow-up appointment, if applicable. Please Follow Up With: Dionte Alva MD When: call to schedule 1 week follow up appt [phone]
--- NOTE | 2019-09-30 14:56 | PCM.DC.SUM ---
Discharge Date and Diagnosis Date of Admission: 09/27/19 Date of Discharge: 09/30/19 - Primary Discharge Diagnosis Active and Suspected Problems Diverticulitis of large intestine with abscess (Acute) Hospital Course and Treatment Operations: None Procedures: None Summary of Care Provided: The patient is a 64 year old F who presented with left lower quadrant pain. She was found to have diverticulitis with abscess. She responded very well to antibiotic therapy and her white count returned to normal and she was tolerating regular diet before discharge. She was given oral antibiotics on discharge in order to follow-up as an outpatient for repeat CT scan. - Physical Exam Vitals/I&O's: Vital Signs Temp Pulse Resp BP Pulse Ox 97.9 F 61 16 124/49 H 98 09/30/19 08:22 09/30/19 08:22 09/30/19 08:22 09/30/19 08:22 09/30/19 08:22 Oxygen Delivery Method Room Air Weight: 95 lb 3.835 oz Body Mass Index (BMI) 19.2 Intake and Output for Last 24 Hours 09/28/19 09/29/19 09/30/19 23:59 23:59 23:59 Intake Total 3046.75 / 3046.75 3519.00 / 3963.00 1854.25 / 1854.25 Output Total 1475 / 1475 2500 / 2900 900 / 900 Balance 1571.75 / 1571.75 1019.00 / 1063.00 954.25 / 954.25 Laboratory Results 09/30/19 05:27: WBC 6.5, RBC 3.69 L, Hgb 10.9 L, Hct 34.7 L, MCV 94.0, MCH 29.5, MCHC 31.4 L, RDW Std Deviation 46.0 H, RDW Coeff of May 13.4, Plt Count 504 H, MPV 8.0, Immature Gran % (Auto) 1.100 H, Neut % (Auto) 59.5, Lymph % (Auto) 21.3, [place] % (Auto) 10.0, Eos % (Auto) 7.2 H, Baso % (Auto) 0.9, Absolute Neuts (auto) 3.9, Absolute Lymphs (auto) 1.39, Nucleated RBC % 0 09/30/19 05:27: Sodium 147 H, Potassium 3.5, Chloride 119 H, Carbon Dioxide 24.0, Anion Gap 4 L, BUN 5 L, Creatinine 0.77, Estim Creat Clear Calc 50.34, Est GFR (MDRD) Af Amer 96, Est GFR (MDRD) Non-Af 80, BUN/Creatinine Ratio 6.5 L, Glucose 97, Calcium 7.7 L Current Medications Acetaminophen (Tylenol) 650 mg PO Q6H PRN PRN PRN Reason: Pain Score 1-10/10 Last Admin: 09/30/19 02:00 Dose: 650 mg Documented by: Alendronate Sodium (Fosamax) 35 mg PO Hubbard@0700 [facility] Last Admin: 09/29/19 07:58 Dose: Not Given Documented by: Atenolol (Tenormin (Beta Deuce)) 12.5 mg PO DAILY [facility] Last Admin: 09/30/19 08:28 Dose: 12.5 mg Documented by: Baclofen (Lioresal) 10 mg PO TID [facility] Last Admin: 09/30/19 14:51 Dose: 10 mg Documented by: Enoxaparin Sodium (Lovenox) 40 mg SC DAILY [facility] Last Admin: 09/30/19 08:30 Dose: 40 mg Documented by: Gabapentin (Neurontin) 100 mg PO BIDCM [facility] Last Admin: 09/30/19 08:31 Dose: 100 mg Documented by: Gabapentin (Neurontin) 300 mg PO QHS [facility] Last Admin: 09/29/19 21:00 Dose: 300 mg Documented by: Piperacillin Sod/Tazobactam Sod (Zosyn) 3.375 gm in 50 mls @ 12.5 mls/hr IV Q8 [facility] Last Admin: 09/30/19 14:51 Dose: 12.5 mls/hr Documented by: Sodium Chloride () 250 mls @ 15 mls/hr IV .[id number] PRN PRN Reason: Saline Flush Last Infusion: 09/30/19 05:32 Dose: 0 mls/hr Documented by: Morphine Sulfate () 2 - 4 mg IV Q2H PRN PRN PRN Reason: Pain Score 6-10/10 Morphine Sulfate () 2 - 4 mg IV Q2H PRN PRN PRN Reason: Pain Score 6-10/10 Ondansetron HCl (Zofran) 4 mg IV Q6H PRN PRN PRN Reason: NAUSEA/VOMITING Pantoprazole Sodium (Protonix) 40 mg PO DAILY [facility] Last Admin: 09/30/19 08:30 Dose: 40 mg Documented by: Sodium Chloride () 10 - 40 ml IV UD PRN PRN Reason: SALINE FLUSH Last Admin: 09/30/19 14:51 Dose: 10 ml Documented by: Discharge Activity: No Restrictions, May Drive, May Shower Call your doctor if your incision/area has: Increased Pain/ Swelling Call your doctor if you observe: Fever of 101 or Higher Home Medications: Medications to take at Discharge Baclofen 10 mg PO TID 01/30/17 Gabapentin [Neurontin] 100 mg PO BIDCM 01/30/17 Gabapentin [Neurontin] 300 mg PO QHS 01/30/17 Alendronate Sodium 35 mg PO [facility] 06/06/19 Atenolol [Tenormin (beta deuce)] 12.5 mg PO DAILY 06/06/19 Cholecalciferol (Vitamin D3) [Vitamin D3] 2,000 unit PO DAILY 06/06/19 Amoxicillin/Potassium Clav [Augmentin 875-125 Tablet] 1 ea PO BID 10 Days #20 tab 09/30/19 Following Prescrptions Were Given to Patient: Amoxicillin/Potassium Clav [Augmentin 875-125 Tablet] 1 ea PO BID 10 Days #20 tab Transmission Status: Received by [facility] Primary Care Physician: Meghna Gregory DO [Primary Care Provider] - Please Follow Up With: Dionte Alva MD When: call to schedule 1 week follow up appt [phone] Medical Necessity - Tobacco Use Smoking Status: Never smoker Tobacco Use: Non-smoker Meaningful Use Info Meaningful Use Diagnoses (Choose all that apply): None applicable
== END 2019-09-30 15:56 | disposition home or self-care (01) | DRG 392 ==
LOC: ED 18:47 → MS3 18:55
PROVIDERS: Admitting Provider Surgery; Emergency Provider Emergency Medicine; Family Provider Internal Medicine; PCP Internal Medicine; Referring Provider Surgery; Visit Provider Surgery
DX: K57.20 Diverticulitis of large intestine with perforation and abscess without bleeding (principal); G35 Multiple sclerosis
CPT/HCPCS: 36415; 80048; 85025; 99283; J7030; J7040; J7050; A4216; J0744

== ENCOUNTER → 2019-10-11 08:18 | Outpatient (CLI) | payer OTHER, SELFPAY ==
[2019-10-07 08:34] VITALS: BMI 19.2
--- NOTE | 2019-10-11 08:20 | CT_ITS ---
STUDY: CT ABDOMEN AND PELVIS WITH CONTRAST REASON FOR EXAM: Female, 64 years old. F/U DIVERTICULITIS. Pt on IV ATB and then oral ATB x 10 days. Prior appendectomy. Pt has MS RADIATION DOSAGE (If Supplied By Facility): CTDIvol = ( 11.19 ) mGy, DLP = ( 242.77 ) mGycm TECHNIQUE: Transaxial images were obtained from the dome of the diaphragm to the symphysis pubis without oral contrast. Oral and amp; IV Readi-CAT and amp; 100mL Isovue-300 was administered. Sagittal and coronal images were reconstructed. Individualized dose optimization techniques were used for this CT. COMPARISON: 09/27/2019. FINDINGS: The visualized lung bases are unremarkable. The visualized portions of the heart are within normal limits. Normal liver. There is non-visualization of the gallbladder, which may be secondary to either contraction or a prior cholecystectomy. Normal spleen. Normal pancreas. Normal bilateral adrenal glands. Normal right kidney. Normal left kidney. Normal visualized stomach. Normal small intestine. There is contrast demonstrated within the right colon suggestive of sequela previous study performed with contrast or barium. There is diverticulosis of the sigmoid with mild inflammatory process, cannot exclude very early diverticulitis. This is seen on axial images 64 through 68 and coronal images 59 through 64.. Distinct appendix not seen with no inflammatory process in the region of the cecum. Normal abdominal aorta. Normal inferior vena cava. Normal retroperitoneum. Normal urinary bladder. Normal abdominal wall. Mild scoliosis of the lumbar spine, convexity to the left. CT/Abdomen/Pelvis WITH Contrast IMPRESSION: Diverticulosis with possible early diverticulitis at the level of the sigmoid as described above. No bowel obstruction. Nonvisualized gallbladder, remainder of abdominal viscera are unremarkable. Electronically Signed: Lory Carlson MD at 3:12 EST , Service support ,
== END ==
PROVIDERS: Family Provider Internal Medicine; PCP Internal Medicine; Referring Provider Surgery; Visit Provider Surgery
DX: K57.20 Diverticulitis of large intestine with perforation and abscess without bleeding (principal)
CPT/HCPCS: 74177; Q9967

== ENCOUNTER → 2019-12-05 08:22 | Outpatient (CLI) | payer OTHER, SELFPAY ==
[2019-06-06 08:36] VITALS: BMI 20.2
[2019-10-24 14:47] VITALS: BMI 19.2
[2019-12-05 08:31] VITALS: BP 97/53; PULSE 72; RESP 16; TEMP 36.4; O2SAT 100; BMI 19.1
[2019-12-05] MEDS: Acetaminophen 500 MG Tablet 1000 MG PO (08:52)
[2019-12-05] MEDS: MethylPREDNISolone 125 MG/2 ML Vial 100 MG IV (08:53)
[2019-12-05] MEDS: DiphenhydrAMINE 50 MG/ML Syringe 25 MG IV (08:53)
[2019-12-05] MEDS: Ocrelizumab 600mg Infusion 40 MG IV (09:28)
== END ==
PROVIDERS: Family Provider Internal Medicine; PCP Internal Medicine; Referring Provider Psychiatry & Neurology Neurology; Visit Provider Psychiatry & Neurology Neurology
DX: G35 Multiple sclerosis (principal)
CPT/HCPCS: J7040; J7050; A4216; J2350

== ENCOUNTER 2020-01-23 18:05 | Inpatient (IN) | payer OTHER, SELFPAY ==
[2019-12-05 08:31] VITALS: BMI 19.1
[2020-01-23 18:07] VITALS: BP 104/64; PULSE 81; PULSE 87; RESP 22; TEMP 36.3; BMI 19.5
--- NOTE | 2020-01-23 18:21 | EKG12_ITS ---
Test Reason : ABDOMINAL PAIN Blood Pressure : / mmHG Vent. Rate : 104 BPM Atrial Rate : 104 BPM P-R Int : 114 ms QRS Dur : 074 ms QT Int : 358 ms P-R-T Axes : 077 084 067 degrees QTc Int : 470 ms Poor data quality, interpretation may be adversely affected Sinus tachycardia Otherwise normal ECG Confirmed by MOSES THAKKAR, PROMISE ([id number]), editorial assistant JOSE MORALES ([id number]) on 01/27/2020 10:26:32 AM Referred By: Confirmed By:PROMISE LOPES MD
--- NOTE | 2020-01-23 18:22 | CT_ITS ---
STUDY: CT ABDOMEN AND PELVIS WITH CONTRAST REASON FOR EXAM: Female, 64 years old. PT STATED ABDOM PAIN, NAUSEA, ELEVATED WBC, HX OF APPY , TUBAL, DIVER RADIATION DOSAGE (If Supplied By Facility): CTDIvol = ( 9.56 ) mGy, DLP = ( 269.94 ) mGycm TECHNIQUE: Transaxial images were obtained from the dome of the diaphragm to the symphysis pubis without oral contrast. IV 100mL Isovue-300 was administered. Sagittal and coronal images were reconstructed. Individualized dose optimization techniques were used for this CT. COMPARISON: Previous study of 10/11/2019 FINDINGS: The visualized lung bases are unremarkable. The visualized portions of the heart are within normal limits. Normal liver. Normal gallbladder and extrahepatic biliary system. Normal spleen. Normal pancreas. Normal bilateral adrenal glands. There are several small right renal cysts. There are several small left renal cyst. There is a small hiatal hernia. There is wall thickening of several loops of small bowel in the pelvis. There is colonic diverticulosis. There is deep pelvic fatty stranding compatible with diverticulitis. There is a small amount of free fluid in the deep pelvis. There is non-visualization of the appendix. There are calcified plaques of the abdominal aorta. Normal inferior vena cava. Normal retroperitoneum. Normal urinary bladder. Uterus and adnexal structures appear normal. There are bilateral tubal ligation clips. There is a small umbilical hernia containing fat. There mild degenerative changes of the visualized thoracolumbar spine. CT/Abdomen/Pelvis W IV Cont ONLY IMPRESSION: 1. Colonic diverticulosis. Deep pelvic fatty stranding compatible with diverticulitis. There is a small amount of free fluid in the deep pelvis. No extraluminal air is seen. 2. There is wall thickening of several loops of small bowel in the pelvis. Findings may represent reactive inflammation associated with probable diverticulitis versus focal enteritis. 3. Small hiatal hernia. 4. Small bilateral renal cysts. 5. Small fat-containing umbilical hernia. Electronically Signed: Colton Serna MD at 20:35 EDT , Service support ,
--- NOTE | 2020-01-23 18:23 | ED.DCSUM_ITS ---
History of Present Illness Chief Complaint: Abd Pain Informant: Patient Onset: Hours Context: Sudden Onset Timing: Continuous Quality: Pain, cramping Location: Epigastrium to pubis symphysis Current Severity: Moderate Maximum Severity: Severe Worsened by: Movement Relieved by: Nothing Associated Symptoms: Nausea Narrative: Patient is a 64-year-old woman who has history of diverticulitis and urinary tract infection. She presents because of abrupt onset of abdominal pain that is generalized. She had a bowel movement this morning that had hard stool. She had a small bowel movement this afternoon which was soft. She did not notice blood or mucus in the stool. She denies fever, chills night sweats. She denies URI symptoms. She denies cardiac symptoms. She denies urologic symptoms. She states she is never had pain like this before. Prior similar symptoms: No Recent Illness/Hospitalization: Yes - September 2019 for diverticulitis - Past Medical History (1) Diverticulitis of large intestine with abscess Status: Acute Past Medical History - Allergies and Home Meds Allergies/Adverse Reactions: Allergies Sulfa (Sulfonamide Antibiotics) Allergy (Intermediate, Verified 01/23/20 18:06) [facility] Primary Care Physician: Meghna Gregory DO [Primary Care Provider] - Prior records reviewed: Yes Surgical History: appendectomy, - - Tubal ligation Lives: Spouse/ Significant Other Smoking Status: Never smoker Alcohol: None Drugs: None Review of Systems General: Denies: Chills, Fever, Malaise, Subjective, Sweats Eyes: Denies: Visual changes - bilaterally, Blurred Vision - bilaterally ENT: Denies: Rhinorrhea, Sore throat Cardiovascular: Denies: Chest pain, Palpitations Gastrointestinal: Reports: Abdominal pain, Nausea. Denies: Vomiting, Diarrhea, Constipation, Melena, Hematochezia Genitourinary: Denies: Dysuria, Hematuria, Frequency Musculoskeletal: Denies: Myalgias, Arthralgias, Neck pain, Back pain, Swelling, Extremity Pain, -, - Skin: Denies: Rash, Abrasions Neurological: Denies: Headache, Weakness, Numbness Psych: Denies: Depression, Anxiety Endocrine: Denies: Polyuria, Polydipsia Hematologic: Denies: Easy bruising, Easy bleeding Allergy: Denies: Uticaria, Swelling of the mouth Physical Exam Vital Signs/Narrative: Vital Signs Temp Pulse Resp BP 01/23/20 18:07 97.4 F L 87 22 H 104/64 Inital Vital Signs reviewed: Yes General: Well nourished, Well developed, Acute Distress Head: Normocephalic, Atraumatic Eyes: Perrl, EOMI. Negative for: Pale conjunctiva ENT: No rhinorrhea, TM's clear. Negative for: Dry mucous membranes Neck: Supple, Nontender, No lymphadenopathy, No JVD Cardiovascular: Regular rate, Regular rhythm, No murmurs, Normal S1, Normal S2 Respiratory: No distress, CTA bilaterally, Chest nontender Abdomen: No masses, Tender, Guarding, Rebound tenderness, Hypoactive bowel sounds. Negative for: Soft, Nontender, Nondistended, Normal bowel sounds, Hepatomegaly, Splenomegaly, Mass, Pulsatile mass, Ventral hernia Rectal: Deferred Back: Nontender, Normal Inspection. Negative for: CVA tenderness Extremities: Nontender, No edema Skin: Normal color, No rash, No Trauma. Negative for: Cyanosis, Diaphoresis, Jaundice Neurological: Alert, Oriented x3, Cranial nerves II-XII grossly intact, Normal Strength, Normal Sensation Psychological: Normal affect Diagnostic/Tx/Re-eval Impressions Abdomen/Pelvis CT 01/23/20 18:22 IMPRESSION: 1. Colonic diverticulosis. Deep pelvic fatty stranding compatible with diverticulitis. There is a small amount of free fluid in the deep pelvis. No extraluminal air is seen. 2. There is wall thickening of several loops of small bowel in the pelvis. Findings may represent reactive inflammation associated with probable diverticulitis versus focal enteritis. 3. Small hiatal hernia. 4. Small bilateral renal cysts. 5. Small fat-containing umbilical hernia. Electronically Signed: Colton Serna MD at 20:35 EDT , Service support , 01/23/20 18:22 Abdomen/Pelvis W IV Cont ONLY [CT] Stat Laboratory Results 01/23/20 01/23/20 01/23/20 18:38 18:38 18:38 WBC 23.6 H RBC 4.60 Hgb 13.5 Hct 42.5 MCV 92.4 MCH 29.3 MCHC 31.8 L RDW Std Deviation 44.4 H RDW Coeff of May 13.2 Plt Count 551 H MPV 8.7 Immature Gran % (Auto) 0.400 Neut % (Auto) 80.8 H Lymph % (Auto) 11.5 L [place] % (Auto) 6.2 Eos % (Auto) 0.8 Baso % (Auto) 0.3 Absolute Neuts (auto) 19.1 H Absolute Lymphs (auto) 2.71 Nucleated RBC % 0 Sodium 141 Potassium 3.7 Chloride 107 Carbon Dioxide 29.0 Anion Gap 5 BUN 21 H Creatinine 0.83 Estim Creat Clear Calc 49.03 Est GFR (MDRD) Af Amer 88 Est GFR (MDRD) Non-Af 73 BUN/Creatinine Ratio 25.2 H Glucose 132 H Lactic Acid 2.0 Calcium 9.4 Total Bilirubin 0.20 AST 25 ALT 23 Alkaline Phosphatase 79 Total Protein 6.7 Albumin 3.6 Globulin 3.1 Albumin/Globulin Ratio 1.2 Lipase 122 Patient's CAT scan reveals evidence of diverticulitis with inflammatory changes and Inflammatory changes small bowel wall that may be reactive to the diverticulitis. The hospitalist was paged for admission. Patient did receive 4.5 g of Zosyn IV piggyback. - EKG Initial EKG Interpretation: Sinus Tachycardia - Rate 104. AL interval 114 ms. QRS duration 74 ms. QT duration 358 ms. [place] is normal. There is artifact secondary to patient's breathing and pain. - Medical Decision Making Patient has a surgical abdomen. Concerned she has a perforated viscus secondary to peptic ulcer disease versus diverticulitis. In the differential one needs entertain possibility of inflammatory bowel disorder, this is unlikely. Appropriate blood work was ordered, pain medicine and CT of the abdomen with IV contrast. ED Disposition - Plan for ED Patient: Disposition: Home or Assisted Living Diagnosis: Acute diverticulitis, Peritonitis (acute) generalized, Sepsis, Sinus tachycardia by electrocardiogram Referrals: Meghna Gregory DO [Primary Care Provider] -
[2020-01-23] MEDS: Ondansetron 4 MG/2 ML Vial IV ×2 (18:42→22:11)
[2020-01-23] MEDS: Morphine 4 MG/ML Syringe IV ×2 (18:43→20:25)
[2020-01-23] MEDS: 0.9% Normal Saline 1,000 ML 1000 ML IV (18:43)
[2020-01-23 19:31] LABS: Absolute Lymphocyte Count 2.71 X10^3/uL (0.83-4.51); Absolute Neutrophil Count 19.1 X10^3/uL (2.0-7.7); Basophil# 0.06 X10^3/uL; Basophil% 0.3 % (0-1); Eosinophil# 0.19 X10^3/uL; Eosinophils% 0.8 % (0-5); Hematocrit 42.5 % (37-47); Hemoglobin 13.5 g/dL (12.0-15.0); Lymphocyte # 2.71 X10^3/ul (4.0); Lymphocyte % 11.5 % (19-41); Mean Corp Hgb Conc 31.8 g/dL (32-36); Mean Corpuscular Hgb 29.3 pg (27.0-32.0); Mean Corpuscular Volume 92.4 fL (81-99); Mean Platelet Vol. 8.7 fl (6.2-12.0); Monocyte# 1.45 X10^3/uL; Monocyte% 6.2 % (0-10); NRBC Flagged by Analyzer 0 % (0-5); Neutrophil # 19.07 X10^3/uL (2.7-7.7); Neutrophil % 80.8 % (47-70); Platelet Count 551 K/mm3 (150-450); RBC Distribution Width CV 13.2 % (11.6-14.6); RBC Distribution Width SD 44.4 fl (35.1-43.9); White Blood Count 23.6 K/mm3 (4.4-11.0)
[2020-01-23 19:40] LABS: ALB/GLOB Ratio 1.2 RATIO (0.9-2.4); AST(SGOT) 25 U/L (15-37); Alanine Aminotransfer ALT/SGPT 23 U/L (13-56); Albumin, Serum 3.6 g/dL (3.2-5.0); Alkaline Phosphatase 79 U/L (45-117); Anion Gap 5 (5-15); BUN 21 mg/dL (7-18); BUN/Creat Ratio 25.2 RATIO (10-20); Calcium,Total 9.4 mg/dL (8.5-10.1); Chloride 107 mmol/L (98-107); Creatinine, Serum 0.83 mg/dL (0.55-1.02); EST Glomerular Filtration Rate 73 mL/min (>60); Est Glom Filt Rate - Afr Amer 88 mL/min (>60); Estimated Creatinine Clearance 49.03 ml/min; Globulin 3.1 g/dL (2.2-4.2); Glucose 132 mg/dL (74-106); Lipase 122 U/L (73-393); Potassium 3.7 mmol/L (3.5-5.1); Protein, Total 6.7 g/dL (6.4-8.2); Sodium Level 141 mmol/L (136-145)
[2020-01-23 20:34] VITALS: BP 112/87; PULSE 111; RESP 18
--- NOTE | 2020-01-23 20:47 | ED.RN ---
DAUGHTER UPDATED PLAN CARE AND PATIENT STATUS AT THIS TIME
--- NOTE | 2020-01-23 20:59 | PCM.HP.STD ---
Problem List (1) Acute diverticulitis Status: Acute (2) Sepsis Status: Acute (3) Sinus tachycardia by electrocardiogram Status: Acute (4) Sepsis Status: Acute (5) Peritonitis Status: Acute History of Present Illness Date of Admission: 01/23/20 Chief Complaint: abdominal pain The patient is a 64 year old F with a history of diverticulitis who presented with excruciating epigastric pain that radiates to her lower abdomen in a straight line pattern. She described the pain as sharp. She reports abdominal bloating. Food makes her pain worse. She denies any ameliorating factors. She denies any fever or chills. The last time her bowels moved was on the same day of presentation. Associated with her symptom is anorexia. At the emergency department CT of the abdomen pelvis showed diverticulitis with peritonitis. Also patient had tachypnea and leukocytosis. Past Medical History Medical History: Medical History (Last Reviewed 01/24/20 @ 02:[address] Jaydon Choi MD) Back pain M54.9 History of diverticulitis Z87.19 History of multiple sclerosis Z86.69 Osteoarthritis M19.90 Osteoporosis M81.0 HTN (hypertension) I10 Allergies Sulfa (Sulfonamide Antibiotics) Allergy (Intermediate, Verified 01/23/20 18:06) Hives Home Medications: Ambulatory Orders Medication Instructions Recorded Baclofen 10 mg PO TID 01/30/17 Gabapentin [Neurontin] 100 mg PO BIDCM 01/30/17 Gabapentin [Neurontin] 300 mg PO QHS 01/30/17 Alendronate Sodium 35 mg PO TOBIAS 06/06/19 Atenolol [Tenormin (beta pat)] 12.5 mg PO DAILY 06/06/19 Cholecalciferol (Vitamin D3) 2,000 unit PO DAILY 06/06/19 [Vitamin D3] calcium carbonate 500 mg calcium 500 mg PO DAILY 10/07/19 (1,250 mg) chewable tablet Surgical History: Surgical History (Last Reviewed 01/23/20 @ 21:[address] Jaydon Choi MD) History of appendectomy Z90.49 History of colonoscopy Onset Date: ~2013 Z98.890 History of tonsillectomy Z90.89 History of tubal ligation Z98.51 Surgical History: appendectomy, - - Tubal ligation Lives: Spouse/ Significant Other Smoking Status: Never smoker Tobacco Use: Non-smoker Alcohol: None Drugs: None - *Family History Maternal Family History: Family History (Last Reviewed 01/24/20 @ 02:[address] Jaydon Choi MD) Mother Thyroid disorder Grandfather Colon cancer Daughter Cancer Other Diabetes Review of Systems Constitutional: Reports: Anorexia, Malaise. Denies: Chills, Fever, Weight Change HEENT: Denies: Head Aches, Sinus Congestion, Sinus Drainage Cardiovascular: Denies: Chest Pain, Palpitations Respiratory: Denies: Cough, Shortness of breath at rest, Sputum production Gastrointestinal: Reports: Abdominal Pain, Nausea, Vomiting Genitourinary: Denies: Dysuria Musculoskeletal: Denies: Joint Pain, Joint Tenderness Skin: Denies: Rash, Wounds Neurological: Denies: Numbness, Tingling, Focal weakness Psychiatric: Denies: Anxiety, Depression, Homicidal Ideations, Suicidal Ideations Hematologic/ Lymphatic: Denies: Easy Bruising, Easy Bleeding VTE Information - Inpt Only VTE Present on Admission: No VTE Mechan Device Prophylaxis: SCD's VTE Pharm Prophylaxis ordered?: No Patient Problems: Active and Suspected Problems (Last Reviewed 01/23/20 @ 21:[address] Jaydon Choi MD) Acute diverticulitis (Acute) Sepsis (Acute) Sinus tachycardia by electrocardiogram (Acute) Sepsis (Acute) Peritonitis (Acute) Peritonitis (acute) generalized (Acute) - Physical Exam Vitals/I&O's: Vital Signs Temp Pulse Resp BP 97.4 F L 111 H 18 112/87 H 01/23/20 18:07 01/23/20 20:34 01/23/20 20:34 01/23/20 20:34 Oxygen Delivery Method Room Air Weight: 45.359 kg Body Mass Index (BMI) 19.5 Intake and Output for Last 24 Hours 01/21/20 01/22/20 01/23/20 23:59 23:59 23:59 Intake Total 1000 / 1000 Balance 1000 / 1000 General: Alert, Oriented x3, Cooperative HEENT: Atraumatic, PERRLA, EOMI, Normocephalic Neck: Supple, No JVD, Negative Carotid Bruits Lungs: Clear to auscultation, Normal air movement, Tachypneic Cardiovascular: No murmurs, Tachycardic Abdomen: Bowel Sounds Present, Soft, Tender Extremities: No edema, Capillary Refill Less than 3 Seconds Skin: No rashes, No breakdown Musculoskeletal: No Tenderness to Palpation of Joints or Extremities Neurological: Cranial nerves II-XII grossly intact Psych/Mental Status: Normal Affect, Appropriate Laboratory Results 01/23/20 18:38: WBC 23.6 H, RBC 4.60, Hgb 13.5, Hct 42.5, MCV 92.4, MCH 29.3, MCHC 31.8 L, RDW Std Deviation 44.4 H, RDW Coeff of May 13.2, Plt Count 551 H, MPV 8.7, Immature Gran % (Auto) 0.400, Neut % (Auto) 80.8 H, Lymph % (Auto) 11.5 L, [place] % (Auto) 6.2, Eos % (Auto) 0.8, Baso % (Auto) 0.3, Absolute Neuts (auto) 19.1 H, Absolute Lymphs (auto) 2.71, Nucleated RBC % 0 01/23/20 18:38: Sodium 141, Potassium 3.7, Chloride 107, Carbon Dioxide 29.0, Anion Gap 5, BUN 21 H, Creatinine 0.83, Estim Creat Clear Calc 49.03, Est GFR (MDRD) Af Amer 88, Est GFR (MDRD) Non-Af 73, BUN/Creatinine Ratio 25.2 H, Glucose 132 H, Calcium 9.4, Total Bilirubin 0.20, AST 25, ALT 23, Alkaline Phosphatase 79, Total Protein 6.7, Albumin 3.6, Globulin 3.1, Albumin/Globulin Ratio 1.2, Lipase 122 01/23/20 18:38: Lactic Acid 2.0 Assessment/Plan All Active Problems (Last Reviewed 01/23/20 @ 21:[address] Jaydon Choi MD) Acute diverticulitis (Acute) Sepsis (Acute) Sinus tachycardia by electrocardiogram (Acute) Sepsis (Acute) Peritonitis (Acute) Peritonitis (acute) generalized (Acute) The patient is a 64 year old F with a history of diverticulitis who presented with excruciating epigastric pain that radiates to her lower abdomen in a straight line; leukocytosis and tachypnea and with radiographic evidence of diverticulitis and peritonitis. Severe Sepsis secondary diverticulitis with peritonitis Lactic acid is 2.0; increased to 3. Trend. Received Zosyn at the emergency department. We will continue patient on Zosyn N.p.o. except meds. General surgery consult. IVF; IV zofran as needed; dilaudid as needed. DVT prophylaxis SCDs for now as we await course of disease process. Inpatient E&M: [id number] Init Hosp L3
[2020-01-23] MEDS: fentaNYL 100 MCG/2 ML Ampul 50 MCG IV (22:11)
[2020-01-23 22:14] VITALS: BP 103/55; PULSE 85; RESP 16; TEMP 36.6; O2SAT 96
[2020-01-23 22:18] VITALS: BP 103/55; PULSE 85; RESP 16; TEMP 36.6; O2SAT 94
[2020-01-23 22:55] LABS: Reflex Lactate? Y
[2020-01-23 23:29] VITALS: PULSE 87
[2020-01-23 23:30] VITALS: BMI 20.1
[2020-01-23 23:35] VITALS: BMI 20.2
[2020-01-23 23:38] VITALS: BP 104/59; PULSE 90; RESP 20; TEMP 36.9; O2SAT 95
[2020-01-23] MEDS: 0.9% Saline Lock 10 ML Syringe IV (23:46)
[2020-01-23] MEDS: HYDROmorphone 0.5 MG/0.5 ML SYRINGE IV (23:46)
[2020-01-23] MEDS: 0.9% Normal Saline 1,000 ML 75 ML IV (23:46)
[2020-01-24] VITALS (21 sets, daily range): BP systolic 85–108; BP diastolic 44–80; PULSE 76–117; RESP 11–28; TEMP 36.4–37.8; O2SAT 93–100; BMI 22.2
[2020-01-24 00:02] LABS: Lactic Acid 3.6 mmol/L (0.4-1.9)
[2020-01-24 03:55] LABS: Absolute Lymphocyte Count 0.42 X10^3/uL (0.83-4.51); Absolute Neutrophil Count 14.4 X10^3/uL (2.0-7.7); Basophil# 0.05 X10^3/uL; Basophil% 0.3 % (0-1); Eosinophil# 0.29 X10^3/uL; Eosinophils% 1.8 % (0-5); Hematocrit 39.2 % (37-47); Lymphocyte # 0.42 X10^3/ul (4.0); Lymphocyte % 2.6 % (19-41); Mean Corp Hgb Conc 33.2 g/dL (32-36); Mean Corpuscular Hgb 30.8 pg (27.0-32.0); Mean Corpuscular Volume 92.9 fL (81-99); Mean Platelet Vol. 8.2 fl (6.2-12.0); Monocyte# 0.72 X10^3/uL; Monocyte% 4.5 % (0-10); NRBC Flagged by Analyzer 0 % (0-5); Neutrophil # 14.38 X10^3/uL (2.7-7.7); Neutrophil % 90.4 % (47-70); POSITIVE DIFFERENTIAL YES; POSITIVE MORPHOLOGY YES; Platelet Count 391 K/mm3 (150-450); RBC Distribution Width CV 13.2 % (11.6-14.6); RBC Distribution Width SD 44.7 fl (35.1-43.9); Red Blood Count 4.22 M/mm3 (4.2-5.4); White Blood Count 15.9 K/mm3 (4.4-11.0)
[2020-01-24 04:00] LABS: Differential Indicated SCAN CRITERIA MET
[2020-01-24 04:15] LABS: Anion Gap 6 (5-15); BUN 16 mg/dL (7-18); BUN/Creat Ratio 20.3 RATIO (10-20); Calcium,Total 8.2 mg/dL (8.5-10.1); Chloride 110 mmol/L (98-107); Creatinine, Serum 0.79 mg/dL (0.55-1.02); Differential Comment SCANNED; EST Glomerular Filtration Rate 78 mL/min (>60); Est Glom Filt Rate - Afr Amer 94 mL/min (>60); Estimated Creatinine Clearance 51.45 ml/min; Glucose 146 mg/dL (74-106); Sodium Level 140 mmol/L (136-145)
[2020-01-24 04:31] LABS: Lactic Acid 2.3 mmol/L (0.4-1.9)
[2020-01-24] MEDS: HYDROmorphone 0.5 MG/0.5 ML SYRINGE IV ×4 (05:50→22:57)
[2020-01-24] MEDS: Ondansetron 4 MG/2 ML Vial IV ×2 (05:50→18:25)
[2020-01-24] MEDS: 0.9% Saline Lock 10 ML Syringe IV ×2 (05:50→22:57)
[2020-01-24] MEDS: Baclofen 10 MG Tablet PO (07:24)
[2020-01-24] MEDS: Gabapentin 100 MG Capsule PO (07:24)
--- NOTE | 2020-01-24 07:26 | PCM.PN.HOSP ---
Patient Problems: Active and Suspected Problems (Last Reviewed 01/24/20 @ 02:[address] Jaydon Choi MD) Acute diverticulitis (Acute) Sepsis (Acute) Sinus tachycardia by electrocardiogram (Acute) Sepsis (Acute) Peritonitis (Acute) Peritonitis (acute) generalized (Acute) Reason for Visit: Perforated abdominal viscus with peritonitis Subjective: Patient is a 64-year-old lady with past medical history significant for multiple sclerosis who presented with abdominal pain imaging studies demonstrated colonic diverticulitis. There was also mention of wall thickening of several small loops of bowel in the pelvis which was thought to be reactive inflammation admitted with probable diverticulitis versus focal enteritis. Treatment initiated per protocol patient admitted to regular nursing floor. Patient condition however continued to deteriorate clinically. Patient did exhibit symptoms and signs of peritonitis. Patient had already been started on broad-spectrum antibiotic therapy on admission. With patient lactic acid going up to 4 decision was made to transfer patient to the intensive care unit. Patient has also been seen and assessed by Dr. Alva with general surgery and plan is for patient to undergo surgical intervention on suspicion of perforated viscus with possible feculent peritonitis Objective: GENERAL: Appears ill looking HEENT: Atraumatic; EYES; Anicteric, Normal Conjunctiva NECK; supple, normal thyroid, RESPIRATORY: Diminished to auscultation CARDIOVASCULAR: Regular S1 S2, GI: soft, normoactive bowel sounds, : No Renal angle tenderness; EXTREMITIES: Left lower quadrant abdominal tenderness MUSCULOSKELETAL: no muscle waisting NEURO: Awake; no lateralizing signs. SKIN: No Rash PSYCH; Flat affect Vitals/I&O's: Vital Signs Temp Pulse Resp BP Pulse Ox 100.1 F H 89 20 H 108/63 95 01/24/20 05:49 01/24/20 06:51 01/24/20 05:49 01/24/20 05:49 01/24/20 05:49 Oxygen Delivery Method Room Air Weight: 45.3 kg Body Mass Index (BMI) 20.1 Intake and Output for Last 24 Hours 01/22/20 01/23/20 01/24/20 23:59 23:59 23:59 Intake Total 1100 / 1100 430.67 / 430.67 Output Total 600 / 600 Balance 1100 / 1100 -169.33 / -169.33 Laboratory Results 01/23/20 18:38: WBC 23.6 H, RBC 4.60, Hgb 13.5, Hct 42.5, MCV 92.4, MCH 29.3, MCHC 31.8 L, RDW Std Deviation 44.4 H, RDW Coeff of May 13.2, Plt Count 551 H, MPV 8.7, Immature Gran % (Auto) 0.400, Neut % (Auto) 80.8 H, Lymph % (Auto) 11.5 L, [place] % (Auto) 6.2, Eos % (Auto) 0.8, Baso % (Auto) 0.3, Absolute Neuts (auto) 19.1 H, Absolute Lymphs (auto) 2.71, Nucleated RBC % 0 01/23/20 18:38: Sodium 141, Potassium 3.7, Chloride 107, Carbon Dioxide 29.0, Anion Gap 5, BUN 21 H, Creatinine 0.83, Estim Creat Clear Calc 49.03, Est GFR (MDRD) Af Amer 88, Est GFR (MDRD) Non-Af 73, BUN/Creatinine Ratio 25.2 H, Glucose 132 H, Calcium 9.4, Total Bilirubin 0.20, AST 25, ALT 23, Alkaline Phosphatase 79, Total Protein 6.7, Albumin 3.6, Globulin 3.1, Albumin/Globulin Ratio 1.2, Lipase 122 01/23/20 18:38: Lactic Acid 2.0 01/23/20 23:25: Lactic Acid 3.6 H* 01/24/20 03:42: WBC 15.9 H, RBC 4.22, Hgb 13.0, Hct 39.2, MCV 92.9, MCH 30.8, MCHC 33.2, RDW Std Deviation 44.7 H, RDW Coeff of May 13.2, Plt Count 391, MPV 8.2, Immature Gran % (Auto) 0.400, Neut % (Auto) 90.4 H, Lymph % (Auto) 2.6 L, [place] % (Auto) 4.5, Eos % (Auto) 1.8, Baso % (Auto) 0.3, Absolute Neuts (auto) 14.4 H, Absolute Lymphs (auto) 0.42 L, Nucleated RBC % 0, Differential Comment SCANNED 01/24/20 03:42: Sodium 140, Potassium 4.0, Chloride 110 H, Carbon Dioxide 24.0, Anion Gap 6, BUN 16, Creatinine 0.79, Estim Creat Clear Calc 51.45, Est GFR (MDRD) Af Amer 94, Est GFR (MDRD) Non-Af 78, BUN/Creatinine Ratio 20.3 H, Glucose 146 H, Calcium 8.2 L 01/24/20 03:42: Lactic Acid 2.3 H* Current Medications Atenolol (Tenormin (Beta Deuce)) 12.5 mg PO DAILY [facility] Baclofen (Lioresal) 10 mg PO TID [facility] Last Admin: 01/24/20 06:01 Dose: Not Given Documented by: Dextrose (D50w Syringe) 0 gm IV X1 PRN; Protocol PRN Reason: Hypoglycemia Gabapentin (Neurontin) 100 mg PO BIDCM KAMLESH Gabapentin (Neurontin) 300 mg PO QHS [facility] Last Admin: 01/23/20 23:54 Dose: Not Given Documented by: Glucagon () 1 mg IM .X1 PRN PRN Reason: Hypoglycemia Hydromorphone HCl (Dilaudid Inj) 0.5 mg IV Q4H PRN PRN PRN Reason: Pain Score 6-10/10 Last Admin: 01/24/20 05:50 Dose: 0.5 mg Documented by: Sodium Chloride () 1,000 mls @ 100 mls/hr IV .Q10H KAMLESH Last Infusion: 01/24/20 04:34 Dose: 100 mls/hr Documented by: Sodium Chloride () 250 mls @ 15 mls/hr IV .[id number] PRN PRN Reason: Saline Flush Last Infusion: 01/24/20 04:35 Dose: 0 mls/hr Documented by: Sodium Chloride () 250 mls @ 15 mls/hr IV .[id number] PRN PRN Reason: Additional IVPB Infusion Piperacillin Sod/Tazobactam (Sod 3.375 gm/ Sodium Chloride) 50 mls @ 12.5 mls/hr IV Q8 [facility] Last Admin: 01/24/20 04:22 Dose: 12.5 mls/hr Documented by: Ondansetron HCl (Zofran) 4 mg IV Q6H PRN PRN PRN Reason: NAUSEA/VOMITING Last Admin: 01/24/20 05:50 Dose: 4 mg Documented by: Sodium Chloride () 10 - 40 ml IV UD PRN PRN Reason: SALINE FLUSH Last Admin: 01/24/20 05:50 Dose: 10 ml Documented by: STROKE Vital Signs/Narrative: Vital Signs Temp Pulse Resp BP Pulse Ox 01/24/20 06:51 89 01/24/20 05:49 100.1 F H 94 20 H 108/63 95 Medical Necessity - Tobacco Use Smoking Status: Never smoker Tobacco Use: Non-smoker Assessment/Plan All Active Problems (Last Reviewed 01/24/20 @ 02:[address] Jaydon Choi MD) Acute diverticulitis (Acute) Sepsis (Acute) Sinus tachycardia by electrocardiogram (Acute) Sepsis (Acute) Peritonitis (Acute) Peritonitis (acute) generalized (Acute) Patient is a 64-year-old lady with past medical history significant for multiple sclerosis who presented with abdominal pain imaging studies demonstrated colonic diverticulitis. There was also mention of wall thickening of several small loops of bowel in the pelvis which was thought to be reactive inflammation admitted with probable diverticulitis versus focal enteritis. Treatment initiated per protocol patient admitted to regular nursing floor. Patient condition however continued to deteriorate clinically. Patient did exhibit symptoms and signs of peritonitis. Patient had already been started on broad-spectrum antibiotic therapy on admission. With patient lactic acid going up to 4 decision was made to transfer patient to the intensive care unit. Patient has also been seen and assessed by Dr. Alva with general surgery and plan is for patient to undergo surgical intervention on suspicion of perforated viscus with possible feculent peritonitis 1. Septic shock ?Secondary to diverticulitis with suspected perforation and subsequent feculent peritonitis. Patient currently be managed with broad-spectrum antibiotic IV fluids. Decision was made to transfer patient to the intensive care unit following a bump in her lactic acid level. Patient has been reassessed by Dr. Alva plan is for patient to undergo surgical intervention (laparoscopic and possible conversion open sigmoid colectomy ( 2. Multiple sclerosis ?Currently stable 3. DVT prophylaxis - SCDs for now with plans to initiate low molecular with heparin following surgery Clinical Impression(s) from Imaging Studies Abdomen/Pelvis CT 01/23/20 18:22 IMPRESSION: 1. Colonic diverticulosis. Deep pelvic fatty stranding compatible with diverticulitis. There is a small amount of free fluid in the deep pelvis. No extraluminal air is seen. 2. There is wall thickening of several loops of small bowel in the pelvis. Findings may represent reactive inflammation associated with probable diverticulitis versus focal enteritis. 3. Small hiatal hernia. 4. Small bilateral renal cysts. 5. Small fat-containing umbilical hernia. Electronically Signed: Colton Serna MD at 20:35 EDT , Service support , Inpatient E&M: [id number] [facility] L[facility]
[2020-01-24 07:51] LABS: Reflex Lactate? Y
--- NOTE | 2020-01-24 08:41 | CON.PCM_ITS ---
Problem List (1) Acute diverticulitis Status: Acute Reason for Consult Date of Consultation: 01/24/20 Reason for Consultation: Diverticulitis History of Present Illness: The patient is a 64 year old F who presented yesterday with abdominal pain. The patient has a history of diverticulitis. The patient reports the pain was severe in her lower abdomen. She is still having severe pain this morning. No nausea or vomiting. Past Medical History Medical History: Medical History (Last Reviewed 01/24/20 @ 02:[address] Jaydon Choi MD) Back pain M54.9 History of diverticulitis Z87.19 History of multiple sclerosis Z86.69 Osteoarthritis M19.90 Osteoporosis M81.0 HTN (hypertension) I10 Allergies Sulfa (Sulfonamide Antibiotics) Allergy (Intermediate, Verified 01/23/20 18:06) Hives Home Medications: Ambulatory Orders Medication Instructions Recorded Baclofen 10 mg PO TID 01/30/17 Gabapentin [Neurontin] 100 mg PO BIDCM 01/30/17 Gabapentin [Neurontin] 300 mg PO QHS 01/30/17 Alendronate Sodium 35 mg PO TOBIAS 06/06/19 Atenolol [Tenormin (beta deuce)] 12.5 mg PO DAILY 06/06/19 Cholecalciferol (Vitamin D3) 2,000 unit PO DAILY 06/06/19 [Vitamin D3] calcium carbonate 500 mg calcium 500 mg PO DAILY 10/07/19 (1,250 mg) chewable tablet Surgical History: Surgical History (Last Reviewed 01/23/20 @ 21:[address] Jaydon Choi MD) History of appendectomy Z90.49 History of colonoscopy Onset Date: ~2013 Z98.890 History of tonsillectomy Z90.89 History of tubal ligation Z98.51 Surgical History: appendectomy, - - Tubal ligation Lives: Spouse/ Significant Other Smoking Status: Never smoker Tobacco Use: Non-smoker Alcohol: None Drugs: None - *Family History Maternal Family History: Family History (Last Reviewed 01/24/20 @ 02:[address] Jaydon Choi MD) Mother Thyroid disorder Grandfather Colon cancer Daughter Cancer Other Diabetes Review of Systems Constitutional: Denies: Anorexia HEENT: Denies: Difficulty Swallowing Cardiovascular: Denies: Chest Pain Respiratory: Denies: Cough, Shortness of Breath Gastrointestinal: Reports: Abdominal Pain Genitourinary: Reports: Retention. Denies: Dysuria Skin: Denies: Jaundice Patient Problems: Active and Suspected Problems (Last Reviewed 01/24/20 @ 02:[address] Jaydon Choi MD) Acute diverticulitis (Acute) Sepsis (Acute) Sinus tachycardia by electrocardiogram (Acute) Sepsis (Acute) Peritonitis (Acute) Peritonitis (acute) generalized (Acute) - Physical Exam Vitals/I&O's: Vital Signs Temp Pulse Resp BP Pulse Ox 98 F 89 20 H 108/63 94 01/24/20 07:28 01/24/20 06:51 01/24/20 05:49 01/24/20 05:49 01/24/20 08:00 Oxygen Delivery Method Room Air Weight: 99 lb 13.91 oz Body Mass Index (BMI) 20.1 Intake and Output for Last 24 Hours 01/22/20 01/23/20 01/24/20 23:59 23:59 23:59 Intake Total 1100 / 1100 430.67 / 430.67 Output Total 600 / 600 Balance 1100 / 1100 -169.33 / -169.33 General: Alert, Oriented x3 Neck: No JVD Lungs: Normal air movement Cardiovascular: Regular rate, Regular Rhythm Abdomen: Non-Distended, Tender Laboratory Results 01/23/20 18:38: WBC 23.6 H, RBC 4.60, Hgb 13.5, Hct 42.5, MCV 92.4, MCH 29.3, MCHC 31.8 L, RDW Std Deviation 44.4 H, RDW Coeff of May 13.2, Plt Count 551 H, MPV 8.7, Immature Gran % (Auto) 0.400, Neut % (Auto) 80.8 H, Lymph % (Auto) 11.5 L, [place] % (Auto) 6.2, Eos % (Auto) 0.8, Baso % (Auto) 0.3, Absolute Neuts (auto) 19.1 H, Absolute Lymphs (auto) 2.71, Nucleated RBC % 0 01/23/20 18:38: Sodium 141, Potassium 3.7, Chloride 107, Carbon Dioxide 29.0, Anion Gap 5, BUN 21 H, Creatinine 0.83, Estim Creat Clear Calc 49.03, Est GFR (MDRD) Af Amer 88, Est GFR (MDRD) Non-Af 73, BUN/Creatinine Ratio 25.2 H, Glucose 132 H, Calcium 9.4, Total Bilirubin 0.20, AST 25, ALT 23, Alkaline Phosphatase 79, Total Protein 6.7, Albumin 3.6, Globulin 3.1, Albumin/Globulin Ratio 1.2, Lipase 122 01/23/20 18:38: Lactic Acid 2.0 01/23/20 23:25: Lactic Acid 3.6 H* 01/24/20 03:42: WBC 15.9 H, RBC 4.22, Hgb 13.0, Hct 39.2, MCV 92.9, MCH 30.8, MCHC 33.2, RDW Std Deviation 44.7 H, RDW Coeff of May 13.2, Plt Count 391, MPV 8.2, Immature Gran % (Auto) 0.400, Neut % (Auto) 90.4 H, Lymph % (Auto) 2.6 L, [place] % (Auto) 4.5, Eos % (Auto) 1.8, Baso % (Auto) 0.3, Absolute Neuts (auto) 14.4 H, Absolute Lymphs (auto) 0.42 L, Nucleated RBC % 0, Differential Comment SCANNED 01/24/20 03:42: Sodium 140, Potassium 4.0, Chloride 110 H, Carbon Dioxide 24.0, Anion Gap 6, BUN 16, Creatinine 0.79, Estim Creat Clear Calc 51.45, Est GFR (MDRD) Af Amer 94, Est GFR (MDRD) Non-Af 78, BUN/Creatinine Ratio 20.3 H, Glucose 146 H, Calcium 8.2 L 01/24/20 03:42: Lactic Acid 2.3 H* 01/24/20 08:07: Lactic Acid Pending Current Medications Atenolol (Tenormin (Beta Deuce)) 12.5 mg PO DAILY [facility] Baclofen (Lioresal) 10 mg PO TID [facility] Last Admin: 01/24/20 07:24 Dose: 10 mg Documented by: Dextrose (D50w Syringe) 0 gm IV X1 PRN; Protocol PRN Reason: Hypoglycemia Gabapentin (Neurontin) 100 mg PO BIDCM [facility] Last Admin: 01/24/20 07:24 Dose: 100 mg Documented by: Gabapentin (Neurontin) 300 mg PO QHS [facility] Last Admin: 01/23/20 23:54 Dose: Not Given Documented by: Glucagon () 1 mg IM .X1 PRN PRN Reason: Hypoglycemia Hydromorphone HCl (Dilaudid Inj) 0.5 mg IV Q4H PRN PRN PRN Reason: Pain Score 6-10/10 Last Admin: 01/24/20 05:50 Dose: 0.5 mg Documented by: Sodium Chloride () 1,000 mls @ 100 mls/hr IV .Q10H [facility] Last Infusion: 01/24/20 04:34 Dose: 100 mls/hr Documented by: Sodium Chloride () 250 mls @ 15 mls/hr IV .[id number] PRN PRN Reason: Saline Flush Last Infusion: 01/24/20 04:35 Dose: 0 mls/hr Documented by: Sodium Chloride () 250 mls @ 15 mls/hr IV .[id number] PRN PRN Reason: Additional IVPB Infusion Piperacillin Sod/Tazobactam (Sod 3.375 gm/ Sodium Chloride) 50 mls @ 12.5 mls/hr IV Q8 [facility] Last Admin: 01/24/20 04:22 Dose: 12.5 mls/hr Documented by: Ondansetron HCl (Zofran) 4 mg IV Q6H PRN PRN PRN Reason: NAUSEA/VOMITING Last Admin: 01/24/20 05:50 Dose: 4 mg Documented by: Sodium Chloride () 10 - 40 ml IV UD PRN PRN Reason: SALINE FLUSH Last Admin: 01/24/20 05:50 Dose: 10 ml Documented by: Assessment/Plan All Active Problems (Last Reviewed 01/24/20 @ 02:[address] Jaydon Choi MD) Acute diverticulitis (Acute) Sepsis (Acute) Sinus tachycardia by electrocardiogram (Acute) Sepsis (Acute) Peritonitis (Acute) Peritonitis (acute) generalized (Acute) 64-year-old female with acute diverticulitis 1. Patient has recurrent acute diverticulitis. I reviewed the CT scan. There is thickening of the garrison of the adjacent small bowel but there is no abscess or free air. The patient is still having significant tenderness and her left shift did increase this morning. Her lactate also increased after the normal lactate that was obtained in the ER. Repeat is pending. The patient had a low- grade fever this morning that has since resolved. She is n.p.o. and receiving antibiotics. If her symptoms do not improve by this afternoon I will take her today for a sigmoid colectomy. I discussed this with her and she is in agreement. Continue to observe this morning but if she continues to have urinary retention as well as peritoneal signs or worsening of her lactate I will be forced to take her for emergent sigmoid colectomy. I did discuss possibility of stoma placement as well. Dionte Alva MD Pager: [facility] [address] [place] [address], [address] [place] [address] Office:
[2020-01-24 08:55] LABS: Lactic Acid 4.4 mmol/L (0.4-1.9)
--- NOTE | 2020-01-24 09:07 | CON.PCM_ITS ---
Reason for Consult Date of Consultation: 01/24/20 Reason for Consultation: Severe sepsis History of Present Illness: The patient is a 64-year-old female, with a history as outlined below, who initially presented to the emergency department on January 22 with complaints of abdominal pain. The patient does have a known history of diverticulosis. On presentation, the patient was noted to be afebrile and hemodynamically stable. Laboratory evaluation revealed an elevated white blood cell count to 23,000. Chemistry profile was unremarkable. Initial lactate level was noted to be 2.0. CT abdomen/pelvis revealed colonic diverticulosis along with surrounding diverticulitis and a small amount of free fluid in the deep pelvis. The patient was subsequently admitted to medical surgical floor. She was evaluated by general surgery. The patient was placed on broad-spectrum antimicrobials along with supplemental IV fluids. On the morning of January 23, the patient's pain apparently increased. Her lactate also increased to 4.4. Past Medical History Medical History: Medical History (Last Reviewed 01/24/20 @ 02:[address] Jaydon Choi MD) Back pain M54.9 History of diverticulitis Z87.19 History of multiple sclerosis Z86.69 Osteoarthritis M19.90 Osteoporosis M81.0 HTN (hypertension) I10 Allergies Sulfa (Sulfonamide Antibiotics) Allergy (Intermediate, Verified 01/23/20 18:06) Hives Home Medications: Ambulatory Orders Medication Instructions Recorded Baclofen 10 mg PO TID 01/30/17 Gabapentin [Neurontin] 100 mg PO BIDCM 01/30/17 Gabapentin [Neurontin] 300 mg PO QHS 01/30/17 Alendronate Sodium 35 mg PO TOBIAS 06/06/19 Atenolol [Tenormin (beta deuce)] 12.5 mg PO DAILY 06/06/19 Cholecalciferol (Vitamin D3) 2,000 unit PO DAILY 06/06/19 [Vitamin D3] calcium carbonate 500 mg calcium 500 mg PO DAILY 10/07/19 (1,250 mg) chewable tablet Surgical History: Surgical History (Last Reviewed 01/23/20 @ 21:[address] Jaydon Choi MD) History of appendectomy Z90.49 History of colonoscopy Onset Date: ~2013 Z98.890 History of tonsillectomy Z90.89 History of tubal ligation Z98.51 Surgical History: appendectomy, - - Tubal ligation Lives: Spouse/ Significant Other Smoking Status: Never smoker Tobacco Use: Non-smoker Alcohol: None Drugs: None - *Family History Maternal Family History: Family History (Last Reviewed 01/24/20 @ 02:[address] Jaydon Choi MD) Mother Thyroid disorder Grandfather Colon cancer Daughter Cancer Other Diabetes Review of Systems Constitutional: Reports: Fever. Denies: Chills Eyes: Denies: Blurred vision, Double vision HEENT: Denies: Head Aches, Sinus Congestion, Sinus Drainage Cardiovascular: Denies: Chest Pain, Palpitations Respiratory: Denies: Cough, Shortness of breath at rest, Sputum production Gastrointestinal: Reports: Abdominal Pain Genitourinary: Denies: Dysuria Musculoskeletal: Denies: Joint Pain, Joint Tenderness Skin: Denies: Rash, Wounds Neurological: Denies: Numbness, Tingling, Focal weakness Psychiatric: Denies: Anxiety, Depression, Homicidal Ideations, Suicidal Ideations Hematologic/ Lymphatic: Denies: Easy Bruising, Easy Bleeding Patient Problems: Active and Suspected Problems (Last Reviewed 01/24/20 @ 02:[address] Jaydon Choi MD) Acute diverticulitis (Acute) Sepsis (Acute) Sinus tachycardia by electrocardiogram (Acute) Sepsis (Acute) Peritonitis (Acute) Peritonitis (acute) generalized (Acute) Objective: The patient's most recent lab work, culture data and imaging studies have all been personally reviewed. - Physical Exam Vitals/I&O's: Vital Signs Temp Pulse Resp BP Pulse Ox 98 F 89 20 H 108/63 94 01/24/20 07:28 01/24/20 06:51 01/24/20 05:49 01/24/20 05:49 01/24/20 08:00 Oxygen Delivery Method Room Air Weight: 99 lb 13.91 oz Body Mass Index (BMI) 20.1 Intake and Output for Last 24 Hours 01/22/20 01/23/20 01/24/20 23:59 23:59 23:59 Intake Total 1100 / 1100 430.67 / 430.67 Output Total 600 / 600 Balance 1100 / 1100 -169.33 / -169.33 General: Alert, No apparent distress HEENT: Atraumatic, Normocephalic Oral: No Gingival or Mucosal Lesions/ Ulcerations Neck: Supple, No Nodes, Trachea Midline Lungs: Normal air movement, No rhonchi, No wheeze, No rales Cardiovascular: Normal S1, Normal S2, No murmurs, Tachycardic Abdomen: Bowel Sounds Present, Soft, Tender Extremities: No clubbing, No cyanosis, No edema Skin: No breakdown Musculoskeletal: No Muscle Wasting Lymphatic: No Cervical, Supraclavicular, or Inguinal Adenopathy Neurological: Neuro grossly intact Psych/Mental Status: Normal Affect, Appropriate Labs (Last 48 Hours) 01/23/20 01/23/20 01/23/20 18:38 18:38 18:38 WBC 23.6 H RBC 4.60 Hgb 13.5 Hct 42.5 MCV 92.4 MCH 29.3 MCHC 31.8 L RDW Std Deviation 44.4 H RDW Coeff of May 13.2 Plt Count 551 H MPV 8.7 Immature Gran % (Auto) 0.400 Neut % (Auto) 80.8 H Lymph % (Auto) 11.5 L [place] % (Auto) 6.2 Eos % (Auto) 0.8 Baso % (Auto) 0.3 Absolute Neuts (auto) 19.1 H Absolute Lymphs (auto) 2.71 Nucleated RBC % 0 Differential Comment Sodium 141 Potassium 3.7 Chloride 107 Carbon Dioxide 29.0 Anion Gap 5 BUN 21 H Creatinine 0.83 Estim Creat Clear Calc 49.03 Est GFR (MDRD) Af Amer 88 Est GFR (MDRD) Non-Af 73 BUN/Creatinine Ratio 25.2 H Glucose 132 H Lactic Acid 2.0 Calcium 9.4 Total Bilirubin 0.20 AST 25 ALT 23 Alkaline Phosphatase 79 Total Protein 6.7 Albumin 3.6 Globulin 3.1 Albumin/Globulin Ratio 1.2 Lipase 122 01/23/20 01/24/20 01/24/20 23:25 03:42 03:42 WBC 15.9 H RBC 4.22 Hgb 13.0 Hct 39.2 MCV 92.9 MCH 30.8 MCHC 33.2 RDW Std Deviation 44.7 H RDW Coeff of May 13.2 Plt Count 391 MPV 8.2 Immature Gran % (Auto) 0.400 Neut % (Auto) 90.4 H Lymph % (Auto) 2.6 L [place] % (Auto) 4.5 Eos % (Auto) 1.8 Baso % (Auto) 0.3 Absolute Neuts (auto) 14.4 H Absolute Lymphs (auto) 0.42 L Nucleated RBC % 0 Differential Comment SCANNED Sodium 140 Potassium 4.0 Chloride 110 H Carbon Dioxide 24.0 Anion Gap 6 BUN 16 Creatinine 0.79 Estim Creat Clear Calc 51.45 Est GFR (MDRD) Af Amer 94 Est GFR (MDRD) Non-Af 78 BUN/Creatinine Ratio 20.3 H Glucose 146 H Lactic Acid 3.6 H* Calcium 8.2 L Total Bilirubin AST ALT Alkaline Phosphatase Total Protein Albumin Globulin Albumin/Globulin Ratio Lipase 01/24/20 01/24/20 03:42 08:07 WBC RBC Hgb Hct MCV MCH MCHC RDW Std Deviation RDW Coeff of May Plt Count MPV Immature Gran % (Auto) Neut % (Auto) Lymph % (Auto) Bath % (Auto) Eos % (Auto) Baso % (Auto) Absolute Neuts (auto) Absolute Lymphs (auto) Nucleated RBC % Differential Comment Sodium Potassium Chloride Carbon Dioxide Anion Gap BUN Creatinine Estim Creat Clear Calc Est GFR (MDRD) Af Amer Est GFR (MDRD) Non-Af BUN/Creatinine Ratio Glucose Lactic Acid 2.3 H* 4.4 H* Calcium Total Bilirubin AST ALT Alkaline Phosphatase Total Protein Albumin Globulin Albumin/Globulin Ratio Lipase Clinical Impression(s) from Imaging Studies Abdomen/Pelvis CT 01/23/20 18:22 IMPRESSION: 1. Colonic diverticulosis. Deep pelvic fatty stranding compatible with diverticulitis. There is a small amount of free fluid in the deep pelvis. No extraluminal air is seen. 2. There is wall thickening of several loops of small bowel in the pelvis. Findings may represent reactive inflammation associated with probable diverticulitis versus focal enteritis. 3. Small hiatal hernia. 4. Small bilateral renal cysts. 5. Small fat-containing umbilical hernia. Electronically Signed: Colton Serna MD at 20:35 EDT , Service support , Current Medications Atenolol (Tenormin (Beta Deuce)) 12.5 mg PO DAILY [facility] Baclofen (Lioresal) 10 mg PO TID [facility] Last Admin: 01/24/20 07:24 Dose: 10 mg Documented by: Dextrose (D50w Syringe) 0 gm IV X1 PRN; Protocol PRN Reason: Hypoglycemia Gabapentin (Neurontin) 100 mg PO BIDCM [facility] Last Admin: 01/24/20 07:24 Dose: 100 mg Documented by: Gabapentin (Neurontin) 300 mg PO QHS [facility] Last Admin: 01/23/20 23:54 Dose: Not Given Documented by: Glucagon () 1 mg IM .X1 PRN PRN Reason: Hypoglycemia Hydromorphone HCl (Dilaudid Inj) 0.5 mg IV Q4H PRN PRN PRN Reason: Pain Score 6-10/10 Last Admin: 01/24/20 05:50 Dose: 0.5 mg Documented by: Sodium Chloride () 1,000 mls @ 100 mls/hr IV .Q10H [facility] Last Infusion: 01/24/20 04:34 Dose: 100 mls/hr Documented by: Sodium Chloride () 250 mls @ 15 mls/hr IV .[id number] PRN PRN Reason: Saline Flush Last Infusion: 01/24/20 04:35 Dose: 0 mls/hr Documented by: Sodium Chloride () 250 mls @ 15 mls/hr IV .[id number] PRN PRN Reason: Additional IVPB Infusion Piperacillin Sod/Tazobactam (Sod 3.375 gm/ Sodium Chloride) 50 mls @ 12.5 mls/hr IV Q8 [facility] Last Admin: 01/24/20 04:22 Dose: 12.5 mls/hr Documented by: Ondansetron HCl (Zofran) 4 mg IV Q6H PRN PRN PRN Reason: NAUSEA/VOMITING Last Admin: 01/24/20 05:50 Dose: 4 mg Documented by: Sodium Chloride () 10 - 40 ml IV UD PRN PRN Reason: SALINE FLUSH Last Admin: 01/24/20 05:50 Dose: 10 ml Documented by: Assessment/Plan Active and Suspected Problems (Last Reviewed 01/24/20 @ 02:[address] Jaydon Choi MD) Acute diverticulitis (Acute) Sepsis (Acute) Sinus tachycardia by electrocardiogram (Acute) Sepsis (Acute) Peritonitis (Acute) Peritonitis (acute) generalized (Acute) RECOMMENDATIONS: 1. Continue empiric broad-spectrum antimicrobials along with supplemental IV fluid hydration. 2. Tentative plans for surgical intervention. IMPRESSIONS: 1. Septic shock Based upon elevated lactate to greater than 4. Hemodynamics are still stable. Clinical concern for underlying diverticulitis with possible perforation. General surgery is following with plans for tentative surgical intervention. Continue IV fluid hydration and antimicrobials. Plan for postoperative ICU level of care. 2. History of multiple sclerosis Complicates care, management, recovery and prognosis. Continue home medications as appropriate. This note was generated with [employer] dictation software. It may contain incorrect words, spelling, and punctuation that were not noted in checking the note before signing. Inpatient E&M: 43270 Init Hosp L3
[2020-01-24 09:15] LABS: Absolute Lymphocyte Count 0.52 X10^3/uL (0.83-4.51); Absolute Neutrophil Count 18.6 X10^3/uL (2.0-7.7); Basophil# 0.11 X10^3/uL; Basophil% 0.5 % (0-1); Eosinophil# 0.15 X10^3/uL; Eosinophils% 0.7 % (0-5); Hematocrit 39.9 % (37-47); Hemoglobin 12.3 g/dL (12.0-15.0); Lymphocyte # 0.52 X10^3/ul (4.0); Lymphocyte % 2.6 % (19-41); Mean Corp Hgb Conc 30.8 g/dL (32-36); Mean Corpuscular Hgb 29.3 pg (27.0-32.0); Mean Platelet Vol. 8.5 fl (6.2-12.0); Monocyte# 0.86 X10^3/uL; Monocyte% 4.2 % (0-10); NRBC Flagged by Analyzer 0 % (0-5); Neutrophil # 18.58 X10^3/uL (2.7-7.7); Neutrophil % 91.7 % (47-70); POSITIVE DIFFERENTIAL YES; POSITIVE MORPHOLOGY YES; Platelet Count 442 K/mm3 (150-450); RBC Distribution Width CV 13.3 % (11.6-14.6); RBC Distribution Width SD 46.4 fl (35.1-43.9); White Blood Count 20.3 K/mm3 (4.4-11.0)
[2020-01-24 09:17] LABS: Differential Indicated SCAN CRITERIA MET; International Normalized Ratio 1.2; Prothrombin Time (Protime)PT. 14.5 SECONDS (11.7-14.9)
[2020-01-24 09:18] LABS: Partial Thromboplast Time 31.3 Seconds (24.1-36.2)
[2020-01-24 09:25] LABS: AST(SGOT) 23 U/L (15-37); Alanine Aminotransfer ALT/SGPT 24 U/L (13-56); Albumin, Serum 2.9 g/dL (3.2-5.0); Alkaline Phosphatase 58 U/L (45-117); Anion Gap 10 (5-15); BUN 15 mg/dL (7-18); BUN/Creat Ratio 15.5 RATIO (10-20); CPK Total, Creatine Kinase 42 U/L (26-192); Calcium,Total 8.1 mg/dL (8.5-10.1); Chloride 112 mmol/L (98-107); Creatinine, Serum 0.97 mg/dL (0.55-1.02); EST Glomerular Filtration Rate 61 mL/min (>60); Est Glom Filt Rate - Afr Amer 74 mL/min (>60); Glucose 121 mg/dL (74-106); Potassium 4.1 mmol/L (3.5-5.1); Protein, Total 5.9 g/dL (6.4-8.2); Sodium Level 144 mmol/L (136-145)
[2020-01-24] MEDS: Lactated Ringers 500 ML IV.SOLN. IV (09:28)
--- NOTE | 2020-01-24 09:29 | NURSING ---
this rn called pt josh per her request. notified of surgery by dr. ibrahim and of ICU admission after. Understanding verbalized, denies need to notify others- states he will.
--- NOTE | 2020-01-24 09:36 | PN_ITS ---
Progress Note I reassessed the patient she is still in a lot of pain. Her labs came back and repeat labs show her white count has elevated and her lactate has gone up as well. I recommend surgery at this point. I believe she may have perforated her colon this morning versus developing feculent peritonitis. I discussed this with the patient and her over the phone. I discussed the risks of bleeding, infection, injury to surrounding organs such as the ureter, bladder, or bowels. I also discussed the possibility of a loop ileostomy versus colo stomy creation. I discussed laparoscopic and possible conversion open sigmoid colectomy with her as well. All questions were answered sufficiently the patient agrees to proceed with surgery. Patient was having urinary retention before surgery and Mcknight will be placed during surgery. Blood cultures are pending. Patient will go to the ICU after surgery. STROKE Vital Signs/Narrative: Vital Signs Temp Pulse Resp BP Pulse Ox 01/24/20 09:14 98.8 F 101 H 18 95/50 L 95 01/24/20 08:00 94 01/24/20 07:28 98 F 01/24/20 06:51 89 01/24/20 05:49 100.1 F H 94 20 H 108/63 95 Essential Procedure Criteria Procedure Essential: Yes Criteria Note: On 12/17/2019 the [place] Department of Health ([facility]) Public Order signed by [facility] Director Lovely Thornton M.D., regarding the Management of Non- Essential Surgeries and Procedures for the purpose of preserving Personal Protective Equipment (PPE) and critical hospital capacity and resources within [place] went into effect as of 12/18/2019 at 5:00PM. According to the [facility] Public Order: This action will remain in full force and effect until the State of Emergency declared by the Governor no longer exists or the Director of the [facility] rescinds or modifies this Order.. This [facility] order stated all non-essential or elective surgeries and procedures that utilize PPE should be delayed unless there is undue risk to the current or future health of a patient. After reviewing the aforementioned [facility] Public Order and the patients clinical case, I have determined that the scheduled procedure meets the criteria to go forward. Risk to Patient if Procedure Delayed: Risk of rapidly worsening to severe symptoms
--- NOTE | 2020-01-24 09:55 | CASEMGMT ---
RN CM Note: RN CM assessment deferred today. Pt to surgery this am for concern of perforated colon. Plan is for ICU monitoring after surgery due to increase in WBC, Lactic Acid, peritonitis, sepsis. CM will continue to follow for care coordination and dc planning when medically stable. Rach JOHNN RN ACM
--- NOTE | 2020-01-24 09:56 | NURSING ---
Pt off unit for surgery at this time-- will be transferred to ICU after surgery.
[2020-01-24] MEDS: Lactated Ringers 1,000 ML 100 ML IV (10:00)
--- NOTE | 2020-01-24 10:02 | NURSING ---
Report given to He, CARD DECORATOR at this time
--- NOTE | 2020-01-24 10:30 | COL_PTH ---
PATIENT: STANTON BLEVINS LOC: [facility]3 U#:[id number] AGE/SX: 64/F ROOM: [facility]313 RE01/23/[address]: Dr. Senait Watson MD : 1955 BED: 1 DIS: 01/29/2020 SPEC #: [id number] RECD: 01/27/20 09:00 STATUS: MICHEAL WOOD #: [id number] EMILIE: 01/24/20 10:[address]: Dionte Alva DEPT: SURGICAL PATHOLOGY RECD BY: Suman Escalante ENTERED: 01/27/20 11:27 SP TYPE: COLON OTHR DR: MD Dr. Teja Robert DO Dr. Joseph Agyepong, MD Dr. Kathleen Fearon, DO Dr. Tamera Robotham, MD Tissues: A - Colon, NOS B - Colon Donuts C - Colon Donuts Procedures: Surgery Specimen Level III Surgery Specimen Level V HEADER OPERATION: Laparoscopic sigmoid colectomy PRE-OP DIAGNOSIS: Acute diverticulitis, sepsis, peritonitis TISSUE SUBMITTED: A - Sigmoid colon, B - Proximal (sigmoid) donut, C - Distal (rectal) donut MICROSCOPIC DIAGNOSIS A. Sigmoid colon, segmental colectomy: Diverticular disease of colon with pericolic microabscess formation. Three out of three lymph nodes with no pathologic change. B. Proximal mucosal donut, excision: No pathologic change. C. Distal (rectal) donut, excision: No pathologic change. AM:mckenna 01/28/20 MICROSCOPIC DESCRIPTION Slides are reviewed. GROSS DESCRIPTION A - Received in fixative is one container labeled with the patient's name and designated sigmoid colon. The specimen consists of a 12 cm segment of bowel. The bowel contains one open end and one closed end. Segments of pericolic fatty tissue are identified. No gross perforation is seen. The lumen contains fecal material. The mucosa is light ramirez in color and are clear of mass lesions. Sections reveal a number of diverticula. None of these appear to have perforated through the bowel wall. [employer] sections are submitted in five cassettes as follows: 1-4 - diverticula, 5 - pericolic fatty tissue. B - Received in fixative is one container labeled with the patient's name and designated proximal sigmoid donut. The specimen consists of three irregular fragments of light to dark ramirez soft tissue that in range in size from 0.6 to 2 cm. The mucosa is light ramirez in color and free of mass lesions. [employer] sections are submitted in one cassette. C - Received in fixative is one container labeled with the patient's name and designated distal donut. The specimen consists of a mucosal donut measuring 1.3 cm in diameter and 0.8 cm in thickness. No mucosal mass lesions are identified. [employer] sections are submitted in one cassette. / AM:mckenna 01/27/20 TC:2 CPT: 80875, 29752 x2
[2020-01-24] MEDS: Lubricating Jelly 60 GM Tube 30 GM TOPICAL (12:17)
[2020-01-24] MEDS: Bupiv/Epi 0.5% Mpf 30 ML Vial (13:36)
[2020-01-24] MEDS: 0.9% Normal Saline 1,000 ML 100 ML IV ×2 (14:15→22:59)
--- NOTE | 2020-01-24 15:13 | OP.PCM_ITS ---
Problem List (1) Acute diverticulitis Status: Acute Report of Operation Date of Procedure: 01/24/20 Pre-Operative Diagnosis: Acute diverticulitis with perforation and purulent peritonitis Post-Operative Diagnosis: Same Surgery/Procedure Performed:: Laparoscopic sigmoid colectomy with primary anastomosis Description of Surgical Findings:: Purulent peritonitis with abscess cavity in the pelvis Specimen's removed: Sigmoid colon Description of Procedure: Patient was brought back to the operating room and general anesthesia was induced. Patient was patient in stirrups and the rectal vault was irrigated with a Betadine and saline solution. Next the abdomen was prepped and draped in usual sterile fashion. An incision was made superior to the umbilicus and dissected down to the fascia. The fascia was elevated and incised. A 12 mm port was placed into the abdomen and the balloon was insufflated and the abdomen was then insufflated to 12 mmHg. Next under direct visualization a right lower quadrant and right mid quadrant 5 mm port were placed. Smoke evacuator was placed onto one of the ports. The patient had purulent peritonitis. There were several areas of abscess and interloop abscesses. This was suctioned and cultured. Once the small bowel was freed up and moved superiorly the sigmoid colon was medialized. Lateral attachments were taken down using Enseal and the left ureter was identified and spared. The window in the mesentery was then created and the mesentery was dissected inferiorly until the rectal vault was encountered. [place] stapler was used to come across the superior rectum. The lateral colonic adhesions and the white line of [place] were taken down. The healthy portion of the colon proximal to the inflamed portion was able to easily reach into the pelvis. Next the air was allowed to desufflate from the abdomen and a midline incision was made inferior to the umbilicus. The fascia was i ncised. Next a wound protector was placed the inflamed colon was delivered through the incision. An area of healthy colon was selected proximal to the inflammation and divided. The anvil of a 25 mm EEA stapler was placed into the colon and a pursestring suture of 0 Prolene was placed. This was reduced back into the abdomen and the wound protector was twisted and tied closed with an umbilical tape. The abdomen was reinsufflated and the mesentery was checked for bleeding. Next serial dilators were placed into the rectum as well as the EEA stapler and the point was deployed through the staple line. The anvil was connected to the point and this was closed and fired. Next the abdomen was irrigated and suctioned dry. The abdomen was filled with fluid and the proximal colon was clamped. Next an air seal test was performed and there was no air leak. Next the small bowel was inspected once more and appeared viable with no leak. There were no signs of bile spillage during lysis of adhesions at the beginning of the case. Next the air was allowed to desufflate from the abdomen and the wound protector was removed. The fascia at the 12 mm port sites was closed with interrupted 0 Vicryl suture. The midline incision fascia was closed with running 0 PDS from the superior and inferior portion to the middle. The inferior incision was packed with Betadine soaked gauze and the other incisions were very loosely closed with 1 interrupted 4-0 Monocryl suture. All the incisions were anesthetized with local anesthetic and the patient was awoken and taken ICU in good condition. Patient tolerated the procedure well. Mcknight was left in place due to retention. - Admit VTE Documentation VTE Present on Admission: No VTE Mechan Device Prophylaxis: SCD's
--- NOTE | 2020-01-24 15:44 | NURSING ---
1540 Called and spoke with one, Elvin Artis, of the patient for update and to provide opportunity to answer any questions family may have for the nursing staff. denied need to have questions answered as he had already spoken to Dr. Alva. told to call anytime if he had any questions. Phone number to reach the unit was provided.
[2020-01-25] VITALS (21 sets, daily range): BP systolic 102–130; BP diastolic 51–113; PULSE 90–116; RESP 13–27; TEMP 36.7–37.5; O2SAT 91–95
[2020-01-25] MEDS: Ondansetron 4 MG/2 ML Vial IV ×3 (04:12→16:15)
[2020-01-25] MEDS: HYDROmorphone 0.5 MG/0.5 ML SYRINGE IV ×7 (04:12→21:52)
[2020-01-25 04:39] LABS: Absolute Lymphocyte Count 1.05 X10^3/uL (0.83-4.51); Basophil# 0.03 X10^3/uL; Basophil% 0.2 % (0-1); Hematocrit 34.6 % (37-47); Hemoglobin 11.2 g/dL (12.0-15.0); Lymphocyte # 1.05 X10^3/ul (4.0); Lymphocyte % 5.9 % (19-41); Mean Corp Hgb Conc 32.4 g/dL (32-36); Mean Corpuscular Hgb 30.7 pg (27.0-32.0); Mean Corpuscular Volume 94.8 fL (81-99); Mean Platelet Vol. 8.4 fl (6.2-12.0); Monocyte% 3.4 % (0-10); NRBC Flagged by Analyzer 0 % (0-5); Neutrophil # 16.03 X10^3/uL (2.7-7.7); Neutrophil % 89.9 % (47-70); Platelet Count 390 K/mm3 (150-450); RBC Distribution Width CV 13.9 % (11.6-14.6); RBC Distribution Width SD 47.8 fl (35.1-43.9); Red Blood Count 3.65 M/mm3 (4.2-5.4); White Blood Count 17.8 K/mm3 (4.4-11.0)
[2020-01-25 04:53] LABS: Anion Gap 3 (5-15); BUN 14 mg/dL (7-18); BUN/Creat Ratio 17.1 RATIO (10-20); Calcium,Total 7.8 mg/dL (8.5-10.1); Chloride 114 mmol/L (98-107); Creatinine, Serum 0.82 mg/dL (0.55-1.02); EST Glomerular Filtration Rate 74 mL/min (>60); Est Glom Filt Rate - Afr Amer 90 mL/min (>60); Estimated Creatinine Clearance 49.57 ml/min; Glucose 91 mg/dL (74-106); Magnesium 2.2 mg/dL (1.6-2.6); Potassium 3.9 mmol/L (3.5-5.1); Sodium Level 143 mmol/L (136-145)
--- NOTE | 2020-01-25 06:15 | PCM.PN.INT ---
Subjective: The patient was seen and examined at the bedside this morning. Events from the last 24 hours have been reviewed. The patient is currently afebrile, hemodynamically stable and maintaining appropriate oxygen saturations on room air. The patient underwent successful laparoscopic sigmoid colectomy yesterday due to acute diverticulitis with perforation and purulent peritonitis. No issues were identified by the overnight nursing staff. The patient does report the presence of abdominal pain. Objective: The patient's most recent lab work, culture data and imaging studies have all been personally reviewed. General: Alert, Cooperative, No apparent distress HEENT: Atraumatic, Normocephalic Oral: Dry Mucosa Neck: Supple, No Nodes, Trachea Midline Lungs: Normal air movement, No rhonchi, No wheeze, No rales Cardiovascular: Normal S1, Normal S2, No murmurs, Tachycardic Abdomen: Soft, Hypoactive Bowel Sounds, Tender Extremities: No clubbing, No cyanosis, No edema Skin: No breakdown Musculoskeletal: No Tenderness to Palpation of Joints or Extremities Lymphatic: No Cervical, Supraclavicular, or Inguinal Adenopathy Neurological: Cranial nerves II-XII grossly intact, Neuro grossly intact Psych/Mental Status: Normal Affect, Appropriate Vital Signs Temp Pulse Resp BP Pulse Ox 99.1 F 103 H 27 H 111/64 93 01/25/20 04:00 01/25/20 06:00 01/25/20 06:00 01/25/20 06:00 01/25/20 06:00 Oxygen Flow Rate (L/min) 2 Oxygen Delivery Method Room Air Weight: 104 lb 0.931 oz Body Mass Index (BMI) 22.2 Intake and Output for Last 24 Hours 01/23/20 01/24/20 01/25/20 23:59 23:59 23:59 Intake Total 1100 / 1100 2922.33 / 2922.33 766.08 / 766.08 Output Total 1900 / 2100 450 / 450 Balance 1100 / 1100 1022.33 / 822.33 316.08 / 316.08 Labs (Last 48 Hours) 01/23/20 01/23/20 01/23/20 18:38 18:38 18:38 WBC 23.6 H RBC 4.60 Hgb 13.5 Hct 42.5 MCV 92.4 MCH 29.3 MCHC 31.8 L RDW Std Deviation 44.4 H RDW Coeff of May 13.2 Plt Count 551 H MPV 8.7 Immature Gran % (Auto) 0.400 Neut % (Auto) 80.8 H Lymph % (Auto) 11.5 L [place] % (Auto) 6.2 Eos % (Auto) 0.8 Baso % (Auto) 0.3 Absolute Neuts (auto) 19.1 H Absolute Lymphs (auto) 2.71 Nucleated RBC % 0 Differential Comment PT INR APTT Sodium 141 Potassium 3.7 Chloride 107 Carbon Dioxide 29.0 Anion Gap 5 BUN 21 H Creatinine 0.83 Estim Creat Clear Calc 49.03 Est GFR (MDRD) Af Amer 88 Est GFR (MDRD) Non-Af 73 BUN/Creatinine Ratio 25.2 H Glucose 132 H Lactic Acid 2.0 Calcium 9.4 Magnesium Total Bilirubin 0.20 AST 25 ALT 23 Alkaline Phosphatase 79 Total Creatine Kinase Total Protein 6.7 Albumin 3.6 Globulin 3.1 Albumin/Globulin Ratio 1.2 Lipase 122 01/23/20 01/24/20 01/24/20 23:25 03:42 03:42 WBC 15.9 H RBC 4.22 Hgb 13.0 Hct 39.2 MCV 92.9 MCH 30.8 MCHC 33.2 RDW Std Deviation 44.7 H RDW Coeff of May 13.2 Plt Count 391 MPV 8.2 Immature Gran % (Auto) 0.400 Neut % (Auto) 90.4 H Lymph % (Auto) 2.6 L [place] % (Auto) 4.5 Eos % (Auto) 1.8 Baso % (Auto) 0.3 Absolute Neuts (auto) 14.4 H Absolute Lymphs (auto) 0.42 L Nucleated RBC % 0 Differential Comment SCANNED PT INR APTT Sodium 140 Potassium 4.0 Chloride 110 H Carbon Dioxide 24.0 Anion Gap 6 BUN 16 Creatinine 0.79 Estim Creat Clear Calc 51.45 Est GFR (MDRD) Af Amer 94 Est GFR (MDRD) Non-Af 78 BUN/Creatinine Ratio 20.3 H Glucose 146 H Lactic Acid 3.6 H* Calcium 8.2 L Magnesium Total Bilirubin AST ALT Alkaline Phosphatase Total Creatine Kinase Total Protein Albumin Globulin Albumin/Globulin Ratio Lipase 01/24/20 01/24/20 01/24/20 03:42 08:07 08:07 WBC 20.3 H RBC 4.20 Hgb 12.3 Hct 39.9 MCV 95.0 MCH 29.3 MCHC 30.8 L D RDW Std Deviation 46.4 H RDW Coeff of May 13.3 Plt Count 442 MPV 8.5 Immature Gran % (Auto) 0.300 Neut % (Auto) 91.7 H Lymph % (Auto) 2.6 L [place] % (Auto) 4.2 Eos % (Auto) 0.7 Baso % (Auto) 0.5 Absolute Neuts (auto) 18.6 H Absolute Lymphs (auto) 0.52 L Nucleated RBC % 0 Differential Comment COMMENT PT INR APTT Sodium Potassium Chloride Carbon Dioxide Anion Gap BUN Creatinine Estim Creat Clear Calc Est GFR (MDRD) Af Amer Est GFR (MDRD) Non-Af BUN/Creatinine Ratio Glucose Lactic Acid 2.3 H* 4.4 H* Calcium Magnesium Total Bilirubin AST ALT Alkaline Phosphatase Total Creatine Kinase Total Protein Albumin Globulin Albumin/Globulin Ratio Lipase 01/24/20 01/24/20 01/25/20 08:07 08:07 04:30 WBC 17.8 H RBC 3.65 L Hgb 11.2 L Hct 34.6 L MCV 94.8 MCH 30.7 MCHC 32.4 D RDW Std Deviation 47.8 H RDW Coeff of May 13.9 Plt Count 390 MPV 8.4 Immature Gran % (Auto) 0.600 Neut % (Auto) 89.9 H Lymph % (Auto) 5.9 L [place] % (Auto) 3.4 Eos % (Auto) 0.0 Baso % (Auto) 0.2 Absolute Neuts (auto) 16.0 H Absolute Lymphs (auto) 1.05 Nucleated RBC % 0 Differential Comment PT 14.5 INR 1.2 APTT 31.3 Sodium 144 Potassium 4.1 Chloride 112 H Carbon Dioxide 22.0 Anion Gap 10 BUN 15 Creatinine 0.97 Estim Creat Clear Calc 41.90 Est GFR (MDRD) Af Amer 74 Est GFR (MDRD) Non-Af 61 BUN/Creatinine Ratio 15.5 Glucose 121 H Lactic Acid Calcium 8.1 L Magnesium Total Bilirubin 0.60 AST 23 ALT 24 Alkaline Phosphatase 58 Total Creatine Kinase 42 Total Protein 5.9 L Albumin 2.9 L Globulin 3.0 Albumin/Globulin Ratio 1.0 Lipase 01/25/20 04:30 WBC RBC Hgb Hct MCV MCH MCHC RDW Std Deviation RDW Coeff of May Plt Count MPV Immature Gran % (Auto) Neut % (Auto) Lymph % (Auto) [place] % (Auto) Eos % (Auto) Baso % (Auto) Absolute Neuts (auto) Absolute Lymphs (auto) Nucleated RBC % Differential Comment PT INR APTT Sodium 143 Potassium 3.9 Chloride 114 H Carbon Dioxide 26.0 Anion Gap 3 L BUN 14 Creatinine 0.82 Estim Creat Clear Calc 49.57 Est GFR (MDRD) Af Amer 90 Est GFR (MDRD) Non-Af 74 BUN/Creatinine Ratio 17.1 Glucose 91 Lactic Acid Calcium 7.8 L Magnesium 2.2 Total Bilirubin AST ALT Alkaline Phosphatase Total Creatine Kinase Total Protein Albumin Globulin Albumin/Globulin Ratio Lipase Clinical Impression(s) from Imaging Studies Abdomen/Pelvis CT 01/23/20 18:22 IMPRESSION: 1. Colonic diverticulosis. Deep pelvic fatty stranding compatible with diverticulitis. There is a small amount of free fluid in the deep pelvis. No extraluminal air is seen. 2. There is wall thickening of several loops of small bowel in the pelvis. Findings may represent reactive inflammation associated with probable diverticulitis versus focal enteritis. 3. Small hiatal hernia. 4. Small bilateral renal cysts. 5. Small fat-containing umbilical hernia. Electronically Signed: Colton Serna MD at 20:35 EDT , Service support , Medical Necessity - Tobacco Use Smoking Status: Never smoker Tobacco Use: Non-smoker Assessment/Plan All Active Problems (Last Reviewed 01/24/20 @ 02:[address] Jaydon Choi MD) Acute diverticulitis (Acute) Sepsis (Acute) Sinus tachycardia by electrocardiogram (Acute) Sepsis (Acute) Peritonitis (Acute) Peritonitis (acute) generalized (Acute) RECOMMENDATIONS: 1. Continue empiric broad-spectrum antimicrobials along with supplemental IV fluid hydration. 2. Pain control per general surgery. 3. Encourage incentive spirometer use and mobilize patient as tolerated. 4. Dietary advancement per general surgery recommendations. 5. As the patient is without further ICU or pulmonary needs, will sign off. Please call with any additional questions. IMPRESSIONS: 1. Septic shock Improved. Based upon elevated lactate to greater than 4. Hemodynamics are still stable. Clinical concern for underlying diverticulitis with perforation. The patient is now postop day #1 status post laparoscopic sigmoid colectomy. Continue IV fluid hydration and antimicrobials. Continue routine postoperative care including pain control and dietary advancement per general surgery recommendations. Encourage incentive spirometer use and mobilize patient as tolerated. 2. History of multiple sclerosis Complicates care, management, recovery and prognosis. Continue home medications as appropriate. This note was generated with [employer] dictation software. It may contain incorrect words, spelling, and punctuation that were not noted in checking the note before signing. Inpatient E&M: [id number] Subs Hosp L2
--- NOTE | 2020-01-25 07:46 | PN_ITS ---
Patient Problems: Active and Suspected Problems (Last Reviewed 01/24/20 @ 02:[address] Jaydon Choi MD) Acute diverticulitis (Acute) Sepsis (Acute) Sinus tachycardia by electrocardiogram (Acute) Sepsis (Acute) Peritonitis (Acute) Peritonitis (acute) generalized (Acute) Reason for Visit: Follow-up for perforated diverticulitis Subjective: Patient underwent laparoscopic sigmoid colectomy with primary anastomosis. Findings at surgery included acute diverticulitis with perforation and purulent peritonitis seen is morning complains of significant pain. Patient also remains tachycardic. WBC count trending up. Objective: GENERAL: Appears ill looking HEENT: Atraumatic; EYES; Anicteric, Normal Conjunctiva NECK; supple, normal thyroid, RESPIRATORY: Diminished to auscultation CARDIOVASCULAR: Regular S1 S2, tachycardic GI:Incision clean dry and intact : No Renal angle tenderness; EXTREMITIES: No edema MUSCULOSKELETAL: no muscle waisting NEURO: Awake; no lateralizing signs. SKIN: No Rash PSYCH; Flat affect Vitals/I&O's: Vital Signs Temp Pulse Resp BP Pulse Ox 99.1 F 103 H 27 H 111/64 93 01/25/20 04:00 01/25/20 06:00 01/25/20 06:00 01/25/20 06:00 01/25/20 06:00 Oxygen Flow Rate (L/min) 2 Oxygen Delivery Method Room Air Weight: 47.2 kg Body Mass Index (BMI) 22.2 Intake and Output for Last 24 Hours 01/23/20 01/24/20 01/25/20 23:59 23:59 23:59 Intake Total 1100 / 1100 2922.33 / 2922.33 766.08 / 766.08 Output Total 1900 / 2100 450 / 450 Balance 1100 / 1100 1022.33 / 822.33 316.08 / 316.08 Laboratory Results 01/24/20 08:07: Lactic Acid 4.4 H* 01/24/20 08:07: WBC 20.3 H, RBC 4.20, Hgb 12.3, Hct 39.9, MCV 95.0, MCH 29.3, MCHC 30.8 L D, RDW Std Deviation 46.4 H, RDW Coeff of May 13.3, Plt Count 442, MPV 8.5, Immature Gran % (Auto) 0.300, Neut % (Auto) 91.7 H, Lymph % (Auto) 2.6 L, [place] % (Auto) 4.2, Eos % (Auto) 0.7, Baso % (Auto) 0.5, Absolute Neuts (auto) 18.6 H, Absolute Lymphs (auto) 0.52 L, Nucleated RBC % 0, Differential Comment COMMENT 01/24/20 08:07: PT 14.5, INR 1.2, APTT 31.3 01/24/20 08:07: Sodium 144, Potassium 4.1, Chloride 112 H, Carbon Dioxide 22.0, Anion Gap 10, BUN 15, Creatinine 0.97, Estim Creat Clear Calc 41.90, Est GFR (MDRD) Af Amer 74, Est GFR (MDRD) Non-Af 61, BUN/Creatinine Ratio 15.5, Glucose 121 H, Calcium 8.1 L, Total Bilirubin 0.60, AST 23, ALT 24, Alkaline Phosphatase 58, Total Creatine Kinase 42, Total Protein 5.9 L, Albumin 2.9 L, Globulin 3.0, Albumin/Globulin Ratio 1.0 01/25/20 04:30: WBC 17.8 H, RBC 3.65 L, Hgb 11.2 L, Hct 34.6 L, MCV 94.8, MCH 30.7, MCHC 32.4 D, RDW Std Deviation 47.8 H, RDW Coeff of May 13.9, Plt Count 390, MPV 8.4, Immature Gran % (Auto) 0.600, Neut % (Auto) 89.9 H, Lymph % (Auto) 5.9 L, [place] % (Auto) 3.4, Eos % (Auto) 0.0, Baso % (Auto) 0.2, Absolute Neuts (auto) 16.0 H, Absolute Lymphs (auto) 1.05, Nucleated RBC % 0 01/25/20 04:30: Sodium 143, Potassium 3.9, Chloride 114 H, Carbon Dioxide 26.0, Anion Gap 3 L, BUN 14, Creatinine 0.82, Estim Creat Clear Calc 49.57, Est GFR (MDRD) Af Amer 90, Est GFR (MDRD) Non-Af 74, BUN/Creatinine Ratio 17.1, Glucose 91, Calcium 7.8 L, Magnesium 2.2 Current Medications Atenolol (Tenormin (Beta Deuce)) 12.5 mg PO DAILY [facility] Last Admin: 01/24/20 14:29 Dose: Not Given Documented by: Baclofen (Lioresal) 10 mg PO TID [facility] Last Admin: 01/25/20 05:03 Dose: Not Given Documented by: Dextrose (D50w Syringe) 0 gm IV X1 PRN; Protocol PRN Reason: Hypoglycemia Gabapentin (Neurontin) 100 mg PO BIDCM [facility] Last Admin: 01/25/20 07:21 Dose: Not Given Documented by: Gabapentin (Neurontin) 300 mg PO QHS [facility] Last Admin: 01/24/20 22:52 Dose: Not Given Documented by: Glucagon () 1 mg IM .X1 PRN PRN Reason: Hypoglycemia Hydromorphone HCl (Dilaudid Inj) 0.5 mg IV Q4H PRN PRN PRN Reason: Pain Score 6-10/10 Last Admin: 01/25/20 07:46 Dose: 0.5 mg Documented by: Sodium Chloride () 1,000 mls @ 100 mls/hr IV .Q10H [facility] Last Infusion: 01/25/20 05:44 Dose: 100 mls/hr Documented by: Sodium Chloride () 250 mls @ 15 mls/hr IV .[id number] PRN PRN Reason: Saline Flush Last Infusion: 01/25/20 04:57 Dose: 0 mls/hr Documented by: Sodium Chloride () 250 mls @ 15 mls/hr IV .[id number] PRN PRN Reason: Additional IVPB Infusion Piperacillin Sod/Tazobactam (Sod 3.375 gm/ Sodium Chloride) 50 mls @ 12.5 mls/hr IV Q8 [facility] Last Infusion: 01/25/20 05:43 Dose: 12.5 mls/hr Documented by: Ondansetron HCl (Zofran) 4 mg IV Q6H PRN PRN PRN Reason: NAUSEA/VOMITING Last Admin: 01/25/20 04:12 Dose: 4 mg Documented by: Sodium Chloride () 10 - 40 ml IV UD PRN PRN Reason: SALINE FLUSH Last Admin: 01/24/20 22:57 Dose: 40 ml Documented by: STROKE Vital Signs/Narrative: Vital Signs Temp Pulse Resp BP Pulse Ox 01/25/20 06:00 103 H 27 H 111/64 93 01/25/20 05:00 108 H 21 H 111/61 95 01/25/20 04:00 99.1 F 116 H 23 H 112/57 L 94 Medical Necessity - Tobacco Use Smoking Status: Never smoker Tobacco Use: Non-smoker Assessment/Plan All Active Problems (Last Reviewed 01/24/20 @ 02:[address] Jaydon Choi MD) Acute diverticulitis (Acute) Sepsis (Acute) Sinus tachycardia by electrocardiogram (Acute) Sepsis (Acute) Peritonitis (Acute) Peritonitis (acute) generalized (Acute) Patient is a 64-year-old lady with past medical history significant for multiple sclerosis who presented with abdominal pain imaging studies demonstrated colonic diverticulitis. There was also mention of wall thickening of several small loops of bowel in the pelvis which was thought to be reactive inflammation admitted with probable diverticulitis versus focal enteritis. Treatment initiated per protocol patient admitted to regular nursing floor. Patient condition however continued to deteriorate clinically. Patient did exhibit symptoms and signs of peritonitis. Patient had already been started on broad- spectrum antibiotic therapy on admission. With patient lactic acid going up to 4 decision was made to transfer patient to the intensive care unit. Patient has also been seen and assessed by Dr. Alva with general surgery and plan is for patient to undergo surgical intervention on suspicion of perforated viscus with possible feculent peritonitis 1. Septic shock ?Secondary to diverticulitis with suspected perforation and subsequent feculent peritonitis. Patient currently be managed with broad-spectrum antibiotic IV fluids. Decision was made to transfer patient to the intensive care unit following a bump in her lactic acid level. Patient has been reassessed by Dr. Alva plan is for patient to undergo surgical intervention (laparoscopic and possible conversion open sigmoid colectomy) ?01/25/2020Patient underwent laparoscopic sigmoid colectomy with primary anastomosis. Findings at surgery included acute diverticulitis with perforation and purulent peritonitis seen is morning complains of significant pain. Patient also remains tachycardic. WBC count trending up. Added Protonix for GI prophylaxis. With patient also complained of significant pain her pain medication regimen was adjusted. Case was discussed with the surgeon on the case Dr. Alva 2. Multiple sclerosis ?Currently stable. Patient is on Ocrelizumab and infusion she receives twice a year last infusion was in December 2019 3. GI prophylaxis ?Patient started on Protonix 4. DVT prophylaxis -Lovenox Active Medications Atenolol (Tenormin (Beta Deuce)) 12.5 mg PO DAILY [facility] Last Admin: 01/24/20 14:29 Dose: Not Given Documented by: Baclofen (Lioresal) 10 mg PO TID [facility] Last Admin: 01/25/20 05:03 Dose: Not Given Documented by: Dextrose (D50w Syringe) 0 gm IV X1 PRN; Protocol PRN Reason: Hypoglycemia Gabapentin (Neurontin) 100 mg PO BIDCM [facility] Last Admin: 01/25/20 07:21 Dose: Not Given Documented by: Gabapentin (Neurontin) 300 mg PO QHS [facility] Last Admin: 01/24/20 22:52 Dose: Not Given Documented by: Glucagon () 1 mg IM .X1 PRN PRN Reason: Hypoglycemia Hydromorphone HCl (Dilaudid Inj) 0.5 mg IV Q4H PRN PRN PRN Reason: Pain Score 6-10/10 Last Admin: 01/25/20 07:46 Dose: 0.5 mg Documented by: Sodium Chloride () 1,000 mls @ 100 mls/hr IV .Q10H [facility] Last Infusion: 01/25/20 05:44 Dose: 100 mls/hr Documented by: Sodium Chloride () 250 mls @ 15 mls/hr IV .[id number] PRN PRN Reason: Saline Flush Last Infusion: 01/25/20 04:57 Dose: 0 mls/hr Documented by: Sodium Chloride () 250 mls @ 15 mls/hr IV .[id number] PRN PRN Reason: Additional IVPB Infusion Piperacillin Sod/Tazobactam (Sod 3.375 gm/ Sodium Chloride) 50 mls @ 12.5 mls/hr IV Q8 [facility] Last Infusion: 01/25/20 05:43 Dose: 12.5 mls/hr Documented by: Ondansetron HCl (Zofran) 4 mg IV Q6H PRN PRN PRN Reason: NAUSEA/VOMITING Last Admin: 01/25/20 04:12 Dose: 4 mg Documented by: Sodium Chloride () 10 - 40 ml IV UD PRN PRN Reason: SALINE FLUSH Last Admin: 01/24/20 22:57 Dose: 40 ml Documented by: Inpatient E&M: [id number] [place] [id number]
--- NOTE | 2020-01-25 08:13 | PN.SURG_ITS ---
Patient Problems: Active and Suspected Problems (Last Reviewed 01/24/20 @ 02:[address] Jaydon Choi MD) Acute diverticulitis (Acute) Sepsis (Acute) Sinus tachycardia by electrocardiogram (Acute) Sepsis (Acute) Peritonitis (Acute) Peritonitis (acute) generalized (Acute) Subjective: Patient reports she is doing better than last night. She is still having abdominal pain. No nausea or vomiting. - Physical Exam Vitals/I&O's: Vital Signs Temp Pulse Resp BP Pulse Ox 99.1 F 103 H 27 H 111/64 93 01/25/20 04:00 01/25/20 06:00 01/25/20 06:00 01/25/20 06:00 01/25/20 06:00 Oxygen Flow Rate (L/min) 2 Oxygen Delivery Method Room Air Weight: 104 lb 0.931 oz Body Mass Index (BMI) 22.2 Intake and Output for Last 24 Hours 01/23/20 01/24/20 01/25/20 23:59 23:59 23:59 Intake Total 1100 / 1100 2922.33 / 2922.33 766.08 / 766.08 Output Total 1900 / 2100 450 / 450 Balance 1100 / 1100 1022.33 / 822.33 316.08 / 316.08 General: Alert, Oriented x3 Neck: No JVD Lungs: Normal air movement Cardiovascular: Tachycardic Abdomen: Soft, Tender Laboratory Results 01/24/20 08:07: Lactic Acid 4.4 H* 01/24/20 08:07: WBC 20.3 H, RBC 4.20, Hgb 12.3, Hct 39.9, MCV 95.0, MCH 29.3, MCHC 30.8 L D, RDW Std Deviation 46.4 H, RDW Coeff of May 13.3, Plt Count 442, MPV 8.5, Immature Gran % (Auto) 0.300, Neut % (Auto) 91.7 H, Lymph % (Auto) 2.6 L, [place] % (Auto) 4.2, Eos % (Auto) 0.7, Baso % (Auto) 0.5, Absolute Neuts (auto) 18.6 H, Absolute Lymphs (auto) 0.52 L, Nucleated RBC % 0, Differential Comment COMMENT 01/24/20 08:07: PT 14.5, INR 1.2, APTT 31.3 01/24/20 08:07: Sodium 144, Potassium 4.1, Chloride 112 H, Carbon Dioxide 22.0, Anion Gap 10, BUN 15, Creatinine 0.97, Estim Creat Clear Calc 41.90, Est GFR (MDRD) Af Amer 74, Est GFR (MDRD) Non-Af 61, BUN/Creatinine Ratio 15.5, Glucose 121 H, Calcium 8.1 L, Total Bilirubin 0.60, AST 23, ALT 24, Alkaline Phosphatase 58, Total Creatine Kinase 42, Total Protein 5.9 L, Albumin 2.9 L, Globulin 3.0, Albumin/Globulin Ratio 1.0 01/25/20 04:30: WBC 17.8 H, RBC 3.65 L, Hgb 11.2 L, Hct 34.6 L, MCV 94.8, MCH 30.7, MCHC 32.4 D, RDW Std Deviation 47.8 H, RDW Coeff of May 13.9, Plt Count 390, MPV 8.4, Immature Gran % (Auto) 0.600, Neut % (Auto) 89.9 H, Lymph % (Auto) 5.9 L, Cole % (Auto) 3.4, Eos % (Auto) 0.0, Baso % (Auto) 0.2, Absolute Neuts (auto) 16.0 H, Absolute Lymphs (auto) 1.05, Nucleated RBC % 0 01/25/20 04:30: Sodium 143, Potassium 3.9, Chloride 114 H, Carbon Dioxide 26.0, Anion Gap 3 L, BUN 14, Creatinine 0.82, Estim Creat Clear Calc 49.57, Est GFR (MDRD) Af Amer 90, Est GFR (MDRD) Non-Af 74, BUN/Creatinine Ratio 17.1, Glucose 91, Calcium 7.8 L, Magnesium 2.2 Current Medications Atenolol (Tenormin (Beta Deuce)) 12.5 mg PO DAILY [facility] Last Admin: 01/24/20 14:29 Dose: Not Given Documented by: Baclofen (Lioresal) 10 mg PO TID [facility] Last Admin: 01/25/20 05:03 Dose: Not Given Documented by: Dextrose (D50w Syringe) 0 gm IV X1 PRN; Protocol PRN Reason: Hypoglycemia Gabapentin (Neurontin) 100 mg PO BIDCM [facility] Last Admin: 01/25/20 07:21 Dose: Not Given Documented by: Gabapentin (Neurontin) 300 mg PO QHS [facility] Last Admin: 01/24/20 22:52 Dose: Not Given Documented by: Glucagon () 1 mg IM .X1 PRN PRN Reason: Hypoglycemia Hydromorphone HCl (Dilaudid Inj) 0.5 mg IV Q2H PRN PRN PRN Reason: Pain Score 6-10/10 Sodium Chloride () 1,000 mls @ 100 mls/hr IV .Q10H [facility] Last Infusion: 01/25/20 05:44 Dose: 100 mls/hr Documented by: Sodium Chloride () 250 mls @ 15 mls/hr IV .[id number] PRN PRN Reason: Saline Flush Last Infusion: 01/25/20 04:57 Dose: 0 mls/hr Documented by: Sodium Chloride () 250 mls @ 15 mls/hr IV .[id number] PRN PRN Reason: Additional IVPB Infusion Piperacillin Sod/Tazobactam (Sod 3.375 gm/ Sodium Chloride) 50 mls @ 12.5 mls/hr IV Q8 [facility] Last Infusion: 01/25/20 05:43 Dose: 12.5 mls/hr Documented by: Ondansetron HCl (Zofran) 4 mg IV Q6H PRN PRN PRN Reason: NAUSEA/VOMITING Last Admin: 01/25/20 04:12 Dose: 4 mg Documented by: Sodium Chloride () 10 - 40 ml IV UD PRN PRN Reason: SALINE FLUSH Last Admin: 01/24/20 22:57 Dose: 40 ml Documented by: Medical Necessity - Tobacco Use Smoking Status: Never smoker Tobacco Use: Non-smoker Assessment/Plan All Active Problems (Last Reviewed 01/24/20 @ 02:[address] Jaydon Choi MD) Acute diverticulitis (Acute) Sepsis (Acute) Sinus tachycardia by electrocardiogram (Acute) Sepsis (Acute) Peritonitis (Acute) Peritonitis (acute) generalized (Acute) 64-year-old female status post laparoscopic sigmoid colectomy for perforated diverticulitis 1. Patient is tachycardic and reports that she is having a lot of pain. I increased her pain medication every 2 hours. I changed her packing at her midline incision today and it is clean dry and intact. The rest of her incisions are clean and dry and intact as well there is some ecchymosis of the right lower quadrant incision but no erythema or drainage from any of the incisions. Continue antibiotics and IV fluids. Continue n.p.o. until bowel function. 2. Patient had urinary retention and Mcknight is in place. Continue 1 more day of IV Mcknight and then voiding trial. Encouraged ambulation and up to chair. Dionte Alva MD Pager: [facility] [address] [place] [address] [address] [place] [address] Office:
[2020-01-25] MEDS: 0.9% Normal Saline 1,000 ML 100 ML IV ×2 (08:53→19:21)
[2020-01-25] MEDS: Enoxaparin 40 MG/0.4 ML Syringe SC (09:48)
--- NOTE | 2020-01-25 12:50 | CASEMGMT ---
NORMA GORDON assessment: Phone interview with patient for initial transition planning/care coordination assessment. NORMA GORDON introduced self and role at [facility], pt voices understanding and consents to assessment at this time. Pt c/o just finishing with therapy and increased pain at this time. Pt is A/OX4 at this time and answers all questions appropriately at this time. Care providers, pharmacy, and demographics verified at this time. Presentation: Pt c/o abd pain/bloating/cramping on 01/22-Pt states took miralax for constipation Admitting dx: Sepsis 2nd to diverticulitis PCP: Bri Specialists: [facility] in [place] for [place] Preferred Pharmacy: [facility] Insurance: [employer] [facility] Prescription Benefit: [employer] [facility] Living Will/HPOA: Pt states has LW/HPOA and is aware that AD's are not on file at [facility] at this time. Pt states that her , Elvin Artis, is HPOA. LNOK: Elvin Artis, Living Arrangements: Pt state lives with in 1 story home and states no concerns at home at this time. Pt states is normally independent with ADL's. Transportation: Pt states drives self and states no transportation concerns at this time. DME/HHC: Pt states has the following DME: cane, w/c, walker, electric scooter, grab bars, and shower chair. Pt states no need for any further DME at this time. Pt states no hx of HHC or SNF in the past. Therapy is recommending skilled PT/OT at discharge and pt aware at this time. Pt to consider and CM to f/u with pt on 01/27/2020. Pt states some concerns with going home at time of discharge d/t pain/weakness at this time. 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 Pt states does not smoke cigarettes or drink ETOH. Pt states no further concerns/needs at this time. CM to follow PT/OT and for any further discharge planning/needs. Advised pt to ask for CM if any further questions/concerns/needs arise, voices understanding. Pt Goal: Home Plan: TBD, pending PT/OT evals and pt progression. S[place]en NORMA GORDON
[2020-01-25] MEDS: Gabapentin 100 MG Capsule PO (13:20)
[2020-01-25] MEDS: Baclofen 10 MG Tablet PO ×2 (13:20→21:21)
[2020-01-25] MEDS: Atenolol 25 MG Tablet 12.5 MG PO (13:20)
[2020-01-25] MEDS: proMETHazine 25 MG/ML Syringe 12.5 MG IM (15:07)
[2020-01-25] MEDS: 0.9% Saline Lock 10 ML Syringe IV (16:17)
--- NOTE | 2020-01-25 20:05 | RAD_ITS ---
STUDY: X-RAY - ABDOMEN/PELVIS REASON FOR EXAM: Female, 64 years old. NAUSEA -- SEVERE SEPSIS SECONDARY TO DIVERTICULITIS . Status post sigmoid resection. TECHNIQUE: 1 view COMPARISON: Prior abdomen and pelvic CT exam of January 23, 2020 FINDINGS: Bibasilar atelectatic changes greater on the left than the right. The predominant pattern is dilated small bowel loops with a modest amount of colon content content consistent with a high-grade small bowel obstruction. The visualized liver, spleen and kidneys are grossly normal in size and morphology. Normal soft tissue structures. Normal visualized osseous structures. RAD/Abdomen Single View (Portable) IMPRESSION: The predominant pattern is dilated small bowel with a modest amount of colon content in the immediate postoperative period most likely ileus. Continued follow-up warranted if distention persists to rule out evolving small bowel obstruction. N.B. : The above information has been verbally conveyed by Marva Hayes MD to Dr. Artie MD, on 01/25/2020 20:37:43 (ET). Electronically Signed: Marva Hayes MD at 20:40 EDT , Service support ,
[2020-01-25] MEDS: proCHLORPERazine 10 MG/2 ML Vial IV (21:02)
[2020-01-25] MEDS: Gabapentin 300 MG Capsule PO (21:23)
--- NOTE | 2020-01-25 21:56 | NURSING ---
xray notified that pt ng has been inserted for follow up kub for placement check
--- NOTE | 2020-01-25 22:00 | RAD_ITS ---
STUDY: X-RAY - ABDOMEN/PELVIS REASON FOR EXAM: Female, 64 years old. NG PLACEMENT TECHNIQUE: 1 view COMPARISON: Prior abdominal radiograph of January 25, 2020 12:00 PM. FINDINGS: Nasogastric tube is in the gastric lumen well below the gastroesophageal junction with decreased air distention of the stomach. Persistent dilated air-filled small bowel loops of the mid abdomen. Now with more visible gas in the hepatic flexure and transverse colon. Negative for gross organomegaly. Minimal free postoperative air. Normal visualized osseous structures. RAD/Abdomen Single View IMPRESSION: NG tube terminates in the gastric lumen well below the gastroesophageal junction with decreased air distention of the stomach. Continued air-filled dilated small bowel now with more air passing into the colon as visualized in the hepatic flexure and transverse colon. Findings consistent with postoperative ileus. Electronically Signed: Marva Hayes MD at 22:24 EDT , Service support ,
[2020-01-26] VITALS (7 sets, daily range): BP systolic 109–128; BP diastolic 59–68; PULSE 68–92; RESP 16–17; TEMP 36.9–37.2; O2SAT 86–97
[2020-01-26] MEDS: HYDROmorphone 0.5 MG/0.5 ML SYRINGE IV ×5 (01:22→19:42)
[2020-01-26] MEDS: proCHLORPERazine 10 MG/2 ML Vial IV (01:31)
[2020-01-26] MEDS: 0.9% Saline Lock 10 ML Syringe IV ×2 (01:33→19:42)
[2020-01-26] MEDS: Ondansetron 4 MG/2 ML Vial IV (04:43)
[2020-01-26] MEDS: 0.9% Normal Saline 1,000 ML 100 ML IV ×2 (06:06→16:02)
[2020-01-26] MEDS: Baclofen 10 MG Tablet PO (06:07)
[2020-01-26 06:34] LABS: Absolute Lymphocyte Count 0.78 X10^3/uL (0.83-4.51); Absolute Neutrophil Count 15.1 X10^3/uL (2.0-7.7); Basophil# 0.04 X10^3/uL; Basophil% 0.2 % (0-1); Eosinophil# 0.07 X10^3/uL; Eosinophils% 0.4 % (0-5); Hematocrit 33.3 % (37-47); Hemoglobin 10.6 g/dL (12.0-15.0); Lymphocyte # 0.78 X10^3/ul (4.0); Lymphocyte % 4.6 % (19-41); Mean Corp Hgb Conc 31.8 g/dL (32-36); Mean Corpuscular Hgb 30.2 pg (27.0-32.0); Mean Corpuscular Volume 94.9 fL (81-99); Mean Platelet Vol. 8.5 fl (6.2-12.0); Monocyte# 0.69 X10^3/uL; Monocyte% 4.1 % (0-10); NRBC Flagged by Analyzer 0 % (0-5); Neutrophil # 15.12 X10^3/uL (2.7-7.7); Neutrophil % 89.5 % (47-70); POSITIVE MORPHOLOGY YES; Platelet Count 413 K/mm3 (150-450); RBC Distribution Width CV 13.8 % (11.6-14.6); RBC Distribution Width SD 47.8 fl (35.1-43.9); Red Blood Count 3.51 M/mm3 (4.2-5.4); White Blood Count 16.9 K/mm3 (4.4-11.0)
[2020-01-26 06:42] LABS: Anion Gap 7 (5-15); BUN 14 mg/dL (7-18); BUN/Creat Ratio 21.8 RATIO (10-20); Calcium,Total 7.8 mg/dL (8.5-10.1); Chloride 116 mmol/L (98-107); Creatinine, Serum 0.64 mg/dL (0.55-1.02); EST Glomerular Filtration Rate 99 mL/min (>60); Est Glom Filt Rate - Afr Amer 119 mL/min (>60); Estimated Creatinine Clearance 69.67 ml/min; Glucose 76 mg/dL (74-106); Potassium 3.5 mmol/L (3.5-5.1); Sodium Level 144 mmol/L (136-145)
[2020-01-26 06:46] LABS: Differential Indicated SCAN CRITERIA MET
--- NOTE | 2020-01-26 07:20 | PN_ITS ---
Patient Problems: Active and Suspected Problems (Last Reviewed 01/24/20 @ 02:[address] Jaydon Choi MD) Acute diverticulitis (Acute) Sepsis (Acute) Sinus tachycardia by electrocardiogram (Acute) Sepsis (Acute) Peritonitis (Acute) Peritonitis (acute) generalized (Acute) Reason for Visit: Follow-up for perforated diverticulitis with peritonitis and subsequent surgical intervention Subjective: Patient developed significant nausea and vomiting imaging studies obtained demonstrated ileus and NG tube was placed down. Objective: GENERAL: Appears ill looking HEENT: Atraumatic; EYES; Anicteric, Normal Conjunctiva NECK; supple, normal thyroid, RESPIRATORY: Diminished to auscultation CARDIOVASCULAR: Regular S1 S2, tachycardic GI:Incision clean dry and intact : No Renal angle tenderness; EXTREMITIES: No edema MUSCULOSKELETAL: no muscle waisting NEURO: Awake; no lateralizing signs. SKIN: No Rash PSYCH; Flat affect Vitals/I&O's: Vital Signs Temp Pulse Resp BP Pulse Ox 98.7 F 92 17 124/68 H 93 01/26/20 02:36 01/26/20 02:36 01/26/20 02:36 01/26/20 02:36 01/26/20 02:36 Oxygen Flow Rate (L/min) 2 Oxygen Delivery Method Room Air Weight: 49.7 kg Body Mass Index (BMI) 22.2 Intake and Output for Last 24 Hours 01/24/20 01/25/20 01/26/20 23:59 23:59 23:59 Intake Total 2922.33 / 2922.33 2646.92 / 2646.92 1060.50 / 1060.50 Output Total 1900 / 2100 825 / 825 1300 / 1300 Balance 1022.33 / 822.33 1821.92 / 1821.92 -239.50 / -239.50 Microbiology Past 72 Hours 01/24/20 13:53 Aspirate - Abdominal Gram Stain - Final 01/24/20 13:53 Aspirate - Abdominal Wound Culture - Preliminary Gram negative carlos eduardo Gram positive organism Laboratory Results 01/26/20 06:06: WBC 16.9 H, RBC 3.51 L, Hgb 10.6 L, Hct 33.3 L, MCV 94.9, MCH 30.2, MCHC 31.8 L, RDW Std Deviation 47.8 H, RDW Coeff of May 13.8, Plt Count 413, MPV 8.5, Immature Gran % (Auto) 1.200 H, Neut % (Auto) 89.5 H, Lymph % (Auto) 4.6 L, [place] % (Auto) 4.1, Eos % (Auto) 0.4, Baso % (Auto) 0.2, Absolute Neuts (auto) 15.1 H, Absolute Lymphs (auto) 0.78 L, Nucleated RBC % 0 01/26/20 06:06: Sodium 144, Potassium 3.5, Chloride 116 H, Carbon Dioxide 21.0, Anion Gap 7, BUN 14, Creatinine 0.64, Estim Creat Clear Calc 69.67, Est GFR (MDRD) Af Amer 119, Est GFR (MDRD) Non-Af 99, BUN/Creatinine Ratio 21.8 H, Glucose 76, Calcium 7.8 L Current Medications Atenolol (Tenormin (Beta Deuce)) 12.5 mg PO DAILY [facility] Last Admin: 01/25/20 13:20 Dose: 12.5 mg Documented by: Baclofen (Lioresal) 10 mg PO TID [facility] Last Admin: 01/26/20 06:07 Dose: 10 mg Documented by: Dextrose (D50w Syringe) 0 gm IV X1 PRN; Protocol PRN Reason: Hypoglycemia Enoxaparin Sodium (Lovenox) 40 mg SC DAILY [facility] Last Admin: 01/25/20 09:48 Dose: 40 mg Documented by: Gabapentin (Neurontin) 100 mg PO BIDCM [facility] Last Admin: 01/25/20 13:20 Dose: 100 mg Documented by: Gabapentin (Neurontin) 300 mg PO QHS [facility] Last Admin: 01/25/20 21:23 Dose: 300 mg Documented by: Glucagon () 1 mg IM .X1 PRN PRN Reason: Hypoglycemia Hydromorphone HCl (Dilaudid Inj) 0.5 mg IV Q2H PRN PRN PRN Reason: Pain Score 6-10/10 Last Admin: 01/26/20 04:43 Dose: 0.5 mg Documented by: Sodium Chloride () 1,000 mls @ 100 mls/hr IV .Q10H [facility] Last Infusion: 01/26/20 06:07 Dose: 100 mls/hr Documented by: Sodium Chloride () 250 mls @ 15 mls/hr IV .[id number] PRN PRN Reason: Saline Flush Last Infusion: 01/26/20 06:07 Dose: 0 mls/hr Documented by: Sodium Chloride () 250 mls @ 15 mls/hr IV .[id number] PRN PRN Reason: Additional IVPB Infusion Piperacillin Sod/Tazobactam (Sod 3.375 gm/ Sodium Chloride) 50 mls @ 12.5 mls/hr IV Q8 [facility] Last Admin: 01/26/20 06:07 Dose: 12.5 mls/hr Documented by: Pantoprazole Sodium 40 mg/ (Sodium Chloride) 110 mls @ 330 mls/hr IV Q12 [facility] Last Infusion: 01/25/20 21:54 Dose: Infused Documented by: Ondansetron HCl (Zofran) 4 mg IV Q6H PRN PRN PRN Reason: NAUSEA/VOMITING Last Admin: 01/26/20 04:43 Dose: 4 mg Documented by: Prochlorperazine Edisylate (Compazine Iv) 5 - 10 mg IV Q4H PRN PRN PRN Reason: NAUSEA/VOMITING Last Admin: 01/26/20 01:31 Dose: 10 mg Documented by: Promethazine HCl (Phenergan) 12.5 mg IM Q4H PRN PRN PRN Reason: NAUSEA/VOMITING Last Admin: 01/25/20 15:07 Dose: 12.5 mg Documented by: Sodium Chloride () 10 - 40 ml IV UD PRN PRN Reason: SALINE FLUSH Last Admin: 01/26/20 01:33 Dose: 10 ml Documented by: Medical Necessity - Tobacco Use Smoking Status: Never smoker Tobacco Use: Non-smoker Assessment/Plan All Active Problems (Last Reviewed 01/24/20 @ 02:[address] Jaydon Choi MD) Acute diverticulitis (Acute) Sepsis (Acute) Sinus tachycardia by electrocardiogram (Acute) Sepsis (Acute) Peritonitis (Acute) Peritonitis (acute) generalized (Acute) Patient is a 64-year-old lady with past medical history significant for multiple sclerosis who presented with abdominal pain imaging studies demonstrated colonic diverticulitis. There was also mention of wall thickening of several small loops of bowel in the pelvis which was thought to be reactive inflammation admitted with probable diverticulitis versus focal enteritis. Treatment initiated per protocol patient admitted to regular nursing floor. 1. Septic shock ?01/23/2017 secondary to diverticulitis with suspected perforation and subsequent feculent peritonitis. Patient currently be managed with broad-spectrum antibiotic IV fluids. Decision was made to transfer patient to the intensive care unit following a bump in her lactic acid level. Patient has been reassessed by Dr. Alva plan is for patient to undergo surgical intervention (laparoscopic and possible conversion open sigmoid colectomy) ?01/25/2020Patient underwent laparoscopic sigmoid colectomy with primary anastomosis. Findings at surgery included acute diverticulitis with perforation and purulent peritonitis seen is morning complains of significant pain. Patient also remains tachycardic. WBC count trending up. Added Protonix for GI prophylaxis. With patient also complained of significant pain her pain medication regimen was adjusted. Case was discussed with the surgeon on the case Dr. Alva ?01/26/2020; patient did develop postop ileus for which an NG tube has been placed 2. Postoperative ileus -Currently being managed conservatively with bowel rest as well as NG tube to suction. General surgery Dr. Alva already on the case 3. Multiple sclerosis ?Currently stable. Patient is on Ocrelizumab and infusion she receives twice a year last infusion was in December 2019 4. GI prophylaxis ?Patient started on Protonix 5. DVT prophylaxis -Lovenox Clinical Impression(s) from Imaging Studies KUB X-Ray 01/25/20 20:05 IMPRESSION: The predominant pattern is dilated small bowel with a modest amount of colon content in the immediate postoperative period most likely ileus. Continued follow-up warranted if distention persists to rule out evolving small bowel obstruction. N.B. : The above information has been verbally conveyed by Marva Hayes MD to Dr. Artie MD, on 01/25/2020 20:37:43 (ET). Electronically Signed: Marva Hayes MD at 20:40 EDT , Service support , ADDENDUM: 01/25/202046 IMPRESSION: The predominant pattern is dilated small bowel with a modest amount of colon content in the immediate postoperative period most likely ileus. Continued follow-up warranted if distention persists to rule out evolving small bowel obstruction. N.B. : The above information has been verbally conveyed by Marva Hayes MD to Dr. Artie MD, on 01/25/2020 20:37:43 (ET). Electronically Signed: Marva Hayes MD at 20:40 EDT , Service support , KUB X-Ray 01/25/20 22:00 IMPRESSION: NG tube terminates in the gastric lumen well below the gastroesophageal junction with decreased air distention of the stomach. Continued air-filled dilated small bowel now with more air passing into the colon as visualized in the hepatic flexure and transverse colon. Findings consistent with postoperative ileus. Electronically Signed: Marva Hayes MD at 22:24 EDT , Service support , Inpatient E&M: [id number] Subs Hosp L3
[2020-01-26 07:29] LABS: Differential Comment SCANNED
--- NOTE | 2020-01-26 08:07 | PCM.PN.SRG ---
Patient Problems: Active and Suspected Problems (Last Reviewed 01/24/20 @ 02:[address] Jaydon Choi MD) Acute diverticulitis (Acute) Sepsis (Acute) Sinus tachycardia by electrocardiogram (Acute) Sepsis (Acute) Peritonitis (Acute) Peritonitis (acute) generalized (Acute) Subjective: Patient had a lot of nausea yesterday and a KUB revealed distended stomach and an NG was placed. Otherwise no acute changes - Physical Exam Vitals/I&O's: Vital Signs Temp Pulse Resp BP Pulse Ox 98.7 F 92 17 124/68 H 94 01/26/20 02:36 01/26/20 02:36 01/26/20 02:36 01/26/20 02:36 01/26/20 08:04 Oxygen Flow Rate (L/min) 2 Oxygen Delivery Method Room Air Weight: 109 lb 9.116 oz Body Mass Index (BMI) 22.2 Intake and Output for Last 24 Hours 01/24/20 01/25/20 01/26/20 23:59 23:59 23:59 Intake Total 2922.33 / 2922.33 2646.92 / 2646.92 1060.50 / 1060.50 Output Total 1900 / 2100 825 / 825 1300 / 1300 Balance 1022.33 / 822.33 1821.92 / 1821.92 -239.50 / -239.50 General: Alert, Oriented x3 Lungs: Normal air movement Abdomen: Soft, Non-Distended Microbiology Past 72 Hours 01/24/20 13:53 Aspirate - Abdominal Gram Stain - Final 01/24/20 13:53 Aspirate - Abdominal Wound Culture - Preliminary Gram negative carlos eduardo Gram positive organism Laboratory Results 01/26/20 06:06: WBC 16.9 H, RBC 3.51 L, Hgb 10.6 L, Hct 33.3 L, MCV 94.9, MCH 30.2, MCHC 31.8 L, RDW Std Deviation 47.8 H, RDW Coeff of May 13.8, Plt Count 413, MPV 8.5, Immature Gran % (Auto) 1.200 H, Neut % (Auto) 89.5 H, Lymph % (Auto) 4.6 L, [place] % (Auto) 4.1, Eos % (Auto) 0.4, Baso % (Auto) 0.2, Absolute Neuts (auto) 15.1 H, Absolute Lymphs (auto) 0.78 L, Nucleated RBC % 0, Differential Comment SCANNED 01/26/20 06:06: Sodium 144, Potassium 3.5, Chloride 116 H, Carbon Dioxide 21.0, Anion Gap 7, BUN 14, Creatinine 0.64, Estim Creat Clear Calc 69.67, Est GFR (MDRD) Af Amer 119, Est GFR (MDRD) Non-Af 99, BUN/Creatinine Ratio 21.8 H, Glucose 76, Calcium 7.8 L Current Medications Atenolol (Tenormin (Beta Deuce)) 12.5 mg PO DAILY [facility] Last Admin: 01/25/20 13:20 Dose: 12.5 mg Documented by: Baclofen (Lioresal) 10 mg PO TID [facility] Last Admin: 01/26/20 06:07 Dose: 10 mg Documented by: Dextrose (D50w Syringe) 0 gm IV X1 PRN; Protocol PRN Reason: Hypoglycemia Enoxaparin Sodium (Lovenox) 40 mg SC DAILY [facility] Last Admin: 01/25/20 09:48 Dose: 40 mg Documented by: Gabapentin (Neurontin) 100 mg PO BIDCM [facility] Last Admin: 01/25/20 13:20 Dose: 100 mg Documented by: Gabapentin (Neurontin) 300 mg PO QHS [facility] Last Admin: 01/25/20 21:23 Dose: 300 mg Documented by: Glucagon () 1 mg IM .X1 PRN PRN Reason: Hypoglycemia Hydromorphone HCl (Dilaudid Inj) 0.5 mg IV Q2H PRN PRN PRN Reason: Pain Score 6-10/10 Last Admin: 01/26/20 04:43 Dose: 0.5 mg Documented by: Sodium Chloride () 1,000 mls @ 100 mls/hr IV .Q10H [facility] Last Infusion: 01/26/20 06:07 Dose: 100 mls/hr Documented by: Sodium Chloride () 250 mls @ 15 mls/hr IV .[id number] PRN PRN Reason: Saline Flush Last Infusion: 01/26/20 06:07 Dose: 0 mls/hr Documented by: Sodium Chloride () 250 mls @ 15 mls/hr IV .[id number] PRN PRN Reason: Additional IVPB Infusion Piperacillin Sod/Tazobactam (Sod 3.375 gm/ Sodium Chloride) 50 mls @ 12.5 mls/hr IV Q8 [facility] Last Admin: 01/26/20 06:07 Dose: 12.5 mls/hr Documented by: Pantoprazole Sodium 40 mg/ (Sodium Chloride) 110 mls @ 330 mls/hr IV Q12 [facility] Last Infusion: 01/25/20 21:54 Dose: Infused Documented by: Ondansetron HCl (Zofran) 4 mg IV Q6H PRN PRN PRN Reason: NAUSEA/VOMITING Last Admin: 01/26/20 04:43 Dose: 4 mg Documented by: Prochlorperazine Edisylate (Compazine Iv) 5 - 10 mg IV Q4H PRN PRN PRN Reason: NAUSEA/VOMITING Last Admin: 01/26/20 01:31 Dose: 10 mg Documented by: Promethazine HCl (Phenergan) 12.5 mg IM Q4H PRN PRN PRN Reason: NAUSEA/VOMITING Last Admin: 01/25/20 15:07 Dose: 12.5 mg Documented by: Sodium Chloride () 10 - 40 ml IV UD PRN PRN Reason: SALINE FLUSH Last Admin: 01/26/20 01:33 Dose: 10 ml Documented by: Medical Necessity - Tobacco Use Smoking Status: Never smoker Tobacco Use: Non-smoker Assessment/Plan All Active Problems (Last Reviewed 01/24/20 @ 02:[address] Jaydon Choi MD) Acute diverticulitis (Acute) Sepsis (Acute) Sinus tachycardia by electrocardiogram (Acute) Sepsis (Acute) Peritonitis (Acute) Peritonitis (acute) generalized (Acute) 64-year-old female perforated diverticulitis 1. Patient had nausea yesterday and a KUB revealed that she had a postoperative ileus. NG tube was placed and it is bilious. Continue NG suction as well as IV fluids. Continue Zosyn. Her white count is slightly decreased and I would recommend continue antibiotics until white count has normalized. Cultures of the fluid inside of the abdomen are pending. Blood cultures are pending as well. 2. Encourage ambulation. Okay for Lovenox for her DVT prophylaxis. Continue wet-to-dry dressing changes twice daily. PPI. Dionte Alva MD Pager: [facility] [address] [place] [address], [address] [place] [address] Office:
[2020-01-26] MEDS: Enoxaparin 40 MG/0.4 ML Syringe SC (08:33)
[2020-01-26] MEDS: BENZOCAINE/MENTHOL 1 LOZENGE MUCOUS MEM (21:34)
[2020-01-27 02:30] VITALS: BP 124/66; PULSE 73; RESP 18; TEMP 36.6; O2SAT 92
[2020-01-27] MEDS: 0.9% Normal Saline 1,000 ML 100 ML IV ×2 (03:06→17:15)
[2020-01-27] MEDS: HYDROmorphone 0.5 MG/0.5 ML SYRINGE IV ×3 (04:28→23:02)
[2020-01-27] MEDS: 0.9% Saline Lock 10 ML Syringe IV ×2 (04:28→09:14)
[2020-01-27] MEDS: BENZOCAINE/MENTHOL 1 LOZENGE MUCOUS MEM ×2 (07:05→13:57)
[2020-01-27 07:30] VITALS: O2SAT 90
[2020-01-27 07:48] LABS: Absolute Lymphocyte Count 1.21 X10^3/uL (0.83-4.51); Absolute Neutrophil Count 13.9 X10^3/uL (2.0-7.7); Basophil# 0.03 X10^3/uL; Basophil% 0.2 % (0-1); Eosinophil# 0.05 X10^3/uL; Eosinophils% 0.3 % (0-5); Hematocrit 32.7 % (37-47); Hemoglobin 10.4 g/dL (12.0-15.0); Lymphocyte # 1.21 X10^3/ul (4.0); Lymphocyte % 7.4 % (19-41); Mean Corp Hgb Conc 31.8 g/dL (32-36); Mean Corpuscular Hgb 29.5 pg (27.0-32.0); Mean Corpuscular Volume 92.6 fL (81-99); Mean Platelet Vol. 8.4 fl (6.2-12.0); Monocyte# 0.95 X10^3/uL; Monocyte% 5.8 % (0-10); NRBC Flagged by Analyzer 0 % (0-5); Neutrophil # 13.91 X10^3/uL (2.7-7.7); Neutrophil % 84.7 % (47-70); Platelet Count 452 K/mm3 (150-450); RBC Distribution Width CV 14.1 % (11.6-14.6); RBC Distribution Width SD 47.9 fl (35.1-43.9); Red Blood Count 3.53 M/mm3 (4.2-5.4); White Blood Count 16.4 K/mm3 (4.4-11.0)
[2020-01-27 08:00] LABS: Anion Gap 9 (5-15); BUN 12 mg/dL (7-18); BUN/Creat Ratio 20.8 RATIO (10-20); Chloride 120 mmol/L (98-107); Creatinine, Serum 0.58 mg/dL (0.55-1.02); EST Glomerular Filtration Rate 112 mL/min (>60); Est Glom Filt Rate - Afr Amer 135 mL/min (>60); Estimated Creatinine Clearance 77.35 ml/min; Glucose 88 mg/dL (74-106); Sodium Level 149 mmol/L (136-145)
[2020-01-27 09:03] VITALS: BP 116/61; PULSE 72; RESP 18; TEMP 36.5
--- NOTE | 2020-01-27 09:22 | PN_ITS ---
Patient Problems: Active and Suspected Problems (Last Reviewed 01/24/20 @ 02:[address] Jaydon Choi MD) Acute diverticulitis (Acute) Sepsis (Acute) Sinus tachycardia by electrocardiogram (Acute) Sepsis (Acute) Peritonitis (Acute) Peritonitis (acute) generalized (Acute) Reason for Visit: Follow-up on septic shock/postoperative ileus Subjective: Patient seen and examined. Her pain is improved. She has been ambulating. No flatus or BM or nausea. No fever or chills or nausea. NG tube is insitu; drainage persists, >500mls yesterday. Vitals/I&O's: Vital Signs Temp Pulse Resp BP Pulse Ox 97.7 F L 72 18 116/61 90 01/27/20 09:03 01/27/20 09:03 01/27/20 09:03 01/27/20 09:03 01/27/20 07:30 Oxygen Flow Rate (L/min) 95 Oxygen Delivery Method Nasal Cannula Weight: 50 kg Body Mass Index (BMI) 22.2 Intake and Output for Last 24 Hours 01/25/20 01/26/20 01/27/20 23:59 23:59 23:59 Intake Total 2646.92 / 2646.92 3246.17 / 3306.17 600 / 600 Output Total 825 / 825 1750 / 2350 1000 / 1000 Balance 1821.92 / 1821.92 1496.17 / 956.17 -400 / -400 General: Alert, Oriented x3, Cooperative, No apparent distress, - - NG tube in situ HEENT: Atraumatic, PERRLA, EOMI, Normocephalic Oral: Moist Mucosa Neck: Supple Lungs: Clear to auscultation, Normal air movement Cardiovascular: Regular rate, Regular Rhythm, Normal S1, Normal S2, No murmurs Abdomen: Soft, Non-Distended, No Hepato-splenomegaly, Bowel Sounds Not Present, Tender, - - Dressings in place Extremities: No edema Skin: No rashes Musculoskeletal: No Tenderness to Palpation of Joints or Extremities Lymphatic: No Cervical, Supraclavicular, or Inguinal Adenopathy Neurological: Cranial nerves II-XII grossly intact, Neuro grossly intact Psych/Mental Status: Normal Affect, Appropriate Microbiology Past 72 Hours 01/24/20 13:53 Aspirate - Abdominal Gram Stain - Final 01/24/20 13:53 Aspirate - Abdominal Wound Culture - Preliminary Citrobacter koseri GPC Poss Enterococcus sp Streptococcus sanguinis 01/24/20 13:53 Aspirate - Abdominal Anaerobic Culture - Preliminary Checking for anaerobes, further studies to follow. 01/24/20 09:25 Blood Culture (Wb) - Left Hand Blood Culture - Preliminary No growth in 48 hours. 01/24/20 09:20 Blood Culture (Wb) - Right Hand Blood Culture - Preliminary No growth in 48 hours. Laboratory Results 01/27/20 07:37: WBC 16.4 H, RBC 3.53 L, Hgb 10.4 L, Hct 32.7 L, MCV 92.6, MCH 29.5, MCHC 31.8 L, RDW Std Deviation 47.9 H, RDW Coeff of May 14.1, Plt Count 452 H, MPV 8.4, Immature Gran % (Auto) 1.600 H, Neut % (Auto) 84.7 H, Lymph % (Auto) 7.4 L, [place] % (Auto) 5.8, Eos % (Auto) 0.3, Baso % (Auto) 0.2, Absolute Neuts (auto) 13.9 H, Absolute Lymphs (auto) 1.21, Nucleated RBC % 0 01/27/20 07:37: Sodium 149 H, Potassium 3.0 L, Chloride 120 H, Carbon Dioxide 20.0 L, Anion Gap 9, BUN 12, Creatinine 0.58, Estim Creat Clear Calc 77.35, Est GFR (MDRD) Af Amer 135, Est GFR (MDRD) Non-Af 112, BUN/Creatinine Ratio 20.8 H, Glucose 88, Calcium 8.0 L Current Medications Atenolol (Tenormin (Beta Deuce)) 12.5 mg PO DAILY [facility] Last Admin: 01/26/20 08:33 Dose: Not Given Documented by: Baclofen (Lioresal) 10 mg PO TID [facility] Last Admin: 01/27/20 05:31 Dose: Not Given Documented by: Dextrose (D50w Syringe) 0 gm IV X1 PRN; Protocol PRN Reason: Hypoglycemia Enoxaparin Sodium (Lovenox) 40 mg SC DAILY [facility] Last Admin: 01/26/20 08:33 Dose: 40 mg Documented by: Gabapentin (Neurontin) 100 mg PO BIDCM [facility] Last Admin: 01/26/20 16:02 Dose: Not Given Documented by: Gabapentin (Neurontin) 300 mg PO QHS [facility] Last Admin: 01/26/20 21:34 Dose: Not Given Documented by: Glucagon () 1 mg IM .X1 PRN PRN Reason: Hypoglycemia Hydromorphone HCl (Dilaudid Inj) 0.5 mg IV Q2H PRN PRN PRN Reason: Pain Score 6-10/10 Last Admin: 01/27/20 09:14 Dose: 0.5 mg Documented by: Sodium Chloride () 1,000 mls @ 100 mls/hr IV .Q10H [facility] Last Admin: 01/27/20 03:06 Dose: 100 mls/hr Documented by: Sodium Chloride () 250 mls @ 15 mls/hr IV .[id number] PRN PRN Reason: Saline Flush Last Infusion: 01/26/20 22:42 Dose: Infused Documented by: Sodium Chloride () 250 mls @ 15 mls/hr IV .[id number] PRN PRN Reason: Additional IVPB Infusion Piperacillin Sod/Tazobactam (Sod 3.375 gm/ Sodium Chloride) 50 mls @ 12.5 mls/hr IV Q8 [facility] Last Admin: 01/27/20 05:24 Dose: 12.5 mls/hr Documented by: Pantoprazole Sodium 40 mg/ (Sodium Chloride) 110 mls @ 330 mls/hr IV Q12 [facility] Last Infusion: 01/26/20 21:52 Dose: Infused Documented by: Potassium Chloride () 10 meq in 100 mls @ 100 mls/hr IV BOLUS Q1H [facility] Stop: 01/27/20 13:29 Ondansetron HCl (Zofran) 4 mg IV Q6H PRN PRN PRN Reason: NAUSEA/VOMITING Last Admin: 01/26/20 04:43 Dose: 4 mg Documented by: Prochlorperazine Edisylate (Compazine Iv) 5 - 10 mg IV Q4H PRN PRN PRN Reason: NAUSEA/VOMITING Last Admin: 01/26/20 01:31 Dose: 10 mg Documented by: Promethazine HCl (Phenergan) 12.5 mg IM Q4H PRN PRN PRN Reason: NAUSEA/VOMITING Last Admin: 01/25/20 15:07 Dose: 12.5 mg Documented by: Sodium Chloride () 10 - 40 ml IV UD PRN PRN Reason: SALINE FLUSH Last Admin: 01/27/20 09:14 Dose: 10 ml Documented by: Throat Lozenges (Cepacol Sore Throat Lozenge) 1 lozenge MUCOUS MEM Q2H PRN PRN PRN Reason: SORE THROAT Last Admin: 01/27/20 07:05 Dose: 1 lozenge Documented by: [facility]OKE Vital Signs/Narrative: Vital Signs Temp Pulse Resp BP Pulse Ox 01/27/20 09:03 97.7 F L 72 18 116/61 01/27/20 07:30 90 Medical Necessity - Tobacco Use Smoking Status: Never smoker Tobacco Use: Non-smoker Assessment/Plan All Active Problems (Last Reviewed 01/24/20 @ 02:[address] Jaydon Choi MD) Acute diverticulitis (Acute) Sepsis (Acute) Sinus tachycardia by electrocardiogram (Acute) Sepsis (Acute) Peritonitis (Acute) Peritonitis (acute) generalized (Acute) 1. Septic shock secondary to acute perforated diverticulitis/purulent peritonitis/pelvic abscess, resolved Blood cultures are negative, no fevers, stable vitals WBC count is decreasing, on IV Zosyn(day5) We will continue on IV antibiotics. 2. POD #3, status post Laparoscopic sigmoid colectomy with primary anastomosis f or acute perforated diverticulitis/purulent peritonitis/pelvic abscess Pain is fairly controlled, continue on IV antibiotics, conservative treatment, general surgery following 3. Post-op ileus, status post NG tube placement, General surgery following 4. Hypokalemia, replace, recheck in am 5. DVT PPx- Lovenox [place] Inpatient E&M: [id number] [facility] L2
--- NOTE | 2020-01-27 09:26 | PN.SURG_ITS ---
Patient Problems: Active and Suspected Problems (Last Reviewed 01/24/20 @ 02:[address] Jaydon Choi MD) Acute diverticulitis (Acute) Sepsis (Acute) Sinus tachycardia by electrocardiogram (Acute) Sepsis (Acute) Peritonitis (Acute) Peritonitis (acute) generalized (Acute) Subjective: Patient reports he is doing well with no flatus. She is not having any nausea and her abdominal pain is improved - Physical Exam Vitals/I&O's: Vital Signs Temp Pulse Resp BP Pulse Ox 97.7 F L 72 18 116/61 90 01/27/20 09:03 01/27/20 09:03 01/27/20 09:03 01/27/20 09:03 01/27/20 07:30 Oxygen Flow Rate (L/min) 95 Oxygen Delivery Method Nasal Cannula Weight: 110 lb 3.698 oz Body Mass Index (BMI) 22.2 Intake and Output for Last 24 Hours 01/25/20 01/26/20 01/27/20 23:59 23:59 23:59 Intake Total 2646.92 / 2646.92 3246.17 / 3306.17 600 / 600 Output Total 825 / 825 1750 / 2350 1000 / 1000 Balance 1821.92 / 1821.92 1496.17 / 956.17 -400 / -400 General: Alert, Oriented x3 Cardiovascular: Regular rate, Regular Rhythm Abdomen: Soft, Non-Distended, Tender Microbiology Past 72 Hours 01/24/20 13:53 Aspirate - Abdominal Gram Stain - Final 01/24/20 13:53 Aspirate - Abdominal Wound Culture - Preliminary Citrobacter koseri GPC Poss Enterococcus sp Streptococcus sanguinis 01/24/20 13:53 Aspirate - Abdominal Anaerobic Culture - Preliminary Checking for anaerobes, further studies to follow. 01/24/20 09:25 Blood Culture (Wb) - Left Hand Blood Culture - Preliminary No growth in 48 hours. 01/24/20 09:20 Blood Culture (Wb) - Right Hand Blood Culture - Preliminary No growth in 48 hours. Laboratory Results 01/27/20 07:37: WBC 16.4 H, RBC 3.53 L, Hgb 10.4 L, Hct 32.7 L, MCV 92.6, MCH 29.5, MCHC 31.8 L, RDW Std Deviation 47.9 H, RDW Coeff of May 14.1, Plt Count 452 H, MPV 8.4, Immature Gran % (Auto) 1.600 H, Neut % (Auto) 84.7 H, Lymph % (Auto) 7.4 L, [place] % (Auto) 5.8, Eos % (Auto) 0.3, Baso % (Auto) 0.2, Absolute Neuts (auto) 13.9 H, Absolute Lymphs (auto) 1.21, Nucleated RBC % 0 01/27/20 07:37: Sodium 149 H, Potassium 3.0 L, Chloride 120 H, Carbon Dioxide 20.0 L, Anion Gap 9, BUN 12, Creatinine 0.58, Estim Creat Clear Calc 77.35, Est GFR (MDRD) Af Amer 135, Est GFR (MDRD) Non-Af 112, BUN/Creatinine Ratio 20.8 H, Glucose 88, Calcium 8.0 L Current Medications Atenolol (Tenormin (Beta Deuce)) 12.5 mg PO DAILY [facility] Last Admin: 01/26/20 08:33 Dose: Not Given Documented by: Baclofen (Lioresal) 10 mg PO TID [facility] Last Admin: 01/27/20 05:31 Dose: Not Given Documented by: Dextrose (D50w Syringe) 0 gm IV X1 PRN; Protocol PRN Reason: Hypoglycemia Enoxaparin Sodium (Lovenox) 40 mg SC DAILY [facility] Last Admin: 01/26/20 08:33 Dose: 40 mg Documented by: Gabapentin (Neurontin) 100 mg PO BIDCM [facility] Last Admin: 01/26/20 16:02 Dose: Not Given Documented by: Gabapentin (Neurontin) 300 mg PO QHS [facility] Last Admin: 01/26/20 21:34 Dose: Not Given Documented by: Glucagon () 1 mg IM .X1 PRN PRN Reason: Hypoglycemia Hydromorphone HCl (Dilaudid Inj) 0.5 mg IV Q2H PRN PRN PRN Reason: Pain Score 6-10/10 Last Admin: 01/27/20 09:14 Dose: 0.5 mg Documented by: Sodium Chloride () 1,000 mls @ 100 mls/hr IV .Q10H [facility] Last Admin: 01/27/20 03:06 Dose: 100 mls/hr Documented by: Sodium Chloride () 250 mls @ 15 mls/hr IV .[id number] PRN PRN Reason: Saline Flush Last Infusion: 01/26/20 22:42 Dose: Infused Documented by: Sodium Chloride () 250 mls @ 15 mls/hr IV .[id number] PRN PRN Reason: Additional IVPB Infusion Piperacillin Sod/Tazobactam (Sod 3.375 gm/ Sodium Chloride) 50 mls @ 12.5 mls/hr IV Q8 [facility] Last Admin: 01/27/20 05:24 Dose: 12.5 mls/hr Documented by: Pantoprazole Sodium 40 mg/ (Sodium Chloride) 110 mls @ 330 mls/hr IV Q12 [facility] Last Infusion: 01/26/20 21:52 Dose: Infused Documented by: Potassium Chloride 40 meq/ (Sodium Chloride) 520 mls @ 130 mls/hr IV .Q4H [facility] Stop: 01/27/20 13:59 Ondansetron HCl (Zofran) 4 mg IV Q6H PRN PRN PRN Reason: NAUSEA/VOMITING Last Admin: 01/26/20 04:43 Dose: 4 mg Documented by: Prochlorperazine Edisylate (Compazine Iv) 5 - 10 mg IV Q4H PRN PRN PRN Reason: NAUSEA/VOMITING Last Admin: 01/26/20 01:31 Dose: 10 mg Documented by: Promethazine HCl (Phenergan) 12.5 mg IM Q4H PRN PRN PRN Reason: NAUSEA/VOMITING Last Admin: 01/25/20 15:07 Dose: 12.5 mg Documented by: Sodium Chloride () 10 - 40 ml IV UD PRN PRN Reason: SALINE FLUSH Last Admin: 01/27/20 09:14 Dose: 10 ml Documented by: Throat Lozenges (Cepacol Sore Throat Lozenge) 1 lozenge MUCOUS MEM Q2H PRN PRN PRN Reason: SORE THROAT Last Admin: 01/27/20 07:05 Dose: 1 lozenge Documented by: Medical Necessity - Tobacco Use Smoking Status: Never smoker Tobacco Use: Non-smoker Assessment/Plan All Active Problems (Last Reviewed 01/24/20 @ 02:[address] Jaydon Choi MD) Acute diverticulitis (Acute) Sepsis (Acute) Sinus tachycardia by electrocardiogram (Acute) Sepsis (Acute) Peritonitis (Acute) Peritonitis (acute) generalized (Acute) 64-year-old female status post sigmoid colectomy for perforated diverticulitis 1. Patient reports that she is improving. She is urinating without a Mcknight. She still has green discharge from her NG tube and she is not passing any flatus. Postoperative ileus continues. Continue NG tube until she is passing flatus or the drainage is clearing and no longer drain. Continue PPI. 2. Patient's white count is still elevated. Continue Zosyn 3. Encourage ambulation. Okay for Lovenox. Dionte Alva MD Pager: [facility] [address] [place] [address], [address] [place] [address] Office:
[2020-01-27 09:49] LABS: Magnesium 2.1 mg/dL (1.6-2.6)
[2020-01-27] MEDS: Baclofen 10 MG Tablet NG ×2 (11:12→22:26)
[2020-01-27] MEDS: Atenolol 25 MG Tablet 12.5 MG NG (11:12)
[2020-01-27] MEDS: Enoxaparin 40 MG/0.4 ML Syringe SC (11:12)
[2020-01-27] MEDS: Gabapentin 100 MG Capsule NG (11:12)
--- NOTE | 2020-01-27 11:14 | CASEMGMT ---
Social Work Note SW Received referral for possible SNF placement at discharge. SW in to speak with pt. SW introduced self and role at [facility]. Pt is alert and orientated x3. Pt states that she will return home at discharge, denied SNF at this time. SW spoke with pt about HHC, but doesn't think she will need HHC at discharge. RN CM/SW To continue to follow. Plan: Home with family. Monitor for HHC Valorie Lee FISH AGENT, CERTIFIED REGISTERED [employer]
[2020-01-27 15:18] VITALS: BP 131/71; PULSE 66; RESP 18; TEMP 36.6; O2SAT 96
--- NOTE | 2020-01-27 18:02 | PN_ITS ---
Progress Note Patient is doing well this evening. She reports she is passing flatus and her NG output was minimal throughout the day. She is also had copious urine output. I will stop her IV fluids and remove her NG tube. Continue sips and ice chips tonight and likely start diet tomorrow. Dionte Alva MD Pager: [facility] [address] [place] [address], [address] [place] [address] Office: [facility] Vital Signs/Narrative: Vital Signs Temp Pulse Resp BP Pulse Ox 01/27/20 15:18 97.9 F 66 18 131/71 H 96
--- NOTE | 2020-01-27 18:02 | PCM.PN.BLA ---
Progress Note Patient is doing well this evening. She reports she is passing flatus and her NG output was minimal throughout the day. She is also had copious urine output. I will stop her IV fluids and remove her NG tube. Continue sips and ice chips tonight and likely start diet tomorrow. Dionte Alva MD Pager: [facility] [address] [place] [address], [address] [place] [address] Office: [facility] Vital Signs/Narrative: Vital Signs Temp Pulse Resp BP Pulse Ox 01/27/20 15:18 97.9 F 66 18 131/71 H 96
[2020-01-27 20:30] VITALS: BP 127/73; PULSE 77; RESP 18; TEMP 36.8; O2SAT 94
[2020-01-27] MEDS: Gabapentin 300 MG Capsule NG (22:26)
[2020-01-28 03:00] VITALS: BP 117/59; PULSE 68; RESP 16; RESP 18; TEMP 37.1; O2SAT 92
[2020-01-28] MEDS: Baclofen 10 MG Tablet NG ×3 (05:31→21:10)
[2020-01-28 06:18] LABS: Absolute Lymphocyte Count 1.12 X10^3/uL (0.83-4.51); Absolute Neutrophil Count 10.2 X10^3/uL (2.0-7.7); Basophil# 0.06 X10^3/uL; Basophil% 0.4 % (0-1); Eosinophil# 0.35 X10^3/uL; Eosinophils% 2.6 % (0-5); Hematocrit 30.6 % (37-47); Hemoglobin 9.7 g/dL (12.0-15.0); Lymphocyte # 1.12 X10^3/ul (4.0); Lymphocyte % 8.4 % (19-41); Mean Corp Hgb Conc 31.7 g/dL (32-36); Mean Corpuscular Hgb 29.2 pg (27.0-32.0); Mean Corpuscular Volume 92.2 fL (81-99); Mean Platelet Vol. 8.4 fl (6.2-12.0); Monocyte# 1.21 X10^3/uL; Monocyte% 9.1 % (0-10); NRBC Flagged by Analyzer 0 % (0-5); Neutrophil % 76.5 % (47-70); Platelet Count 404 K/mm3 (150-450); RBC Distribution Width CV 13.9 % (11.6-14.6); RBC Distribution Width SD 47.3 fl (35.1-43.9); Red Blood Count 3.32 M/mm3 (4.2-5.4); White Blood Count 13.3 K/mm3 (4.4-11.0)
[2020-01-28 06:45] LABS: ALB/GLOB Ratio 0.7 RATIO (0.9-2.4); AST(SGOT) 18 U/L (15-37); Alanine Aminotransfer ALT/SGPT 15 U/L (13-56); Albumin, Serum 2.1 g/dL (3.2-5.0); Alkaline Phosphatase 59 U/L (45-117); Anion Gap 8 (5-15); BUN 12 mg/dL (7-18); BUN/Creat Ratio 21.7 RATIO (10-20); Calcium,Total 7.9 mg/dL (8.5-10.1); Chloride 115 mmol/L (98-107); Creatinine, Serum 0.55 mg/dL (0.55-1.02); EST Glomerular Filtration Rate 117 mL/min (>60); Est Glom Filt Rate - Afr Amer 142 mL/min (>60); Estimated Creatinine Clearance 81.89 ml/min; Glucose 74 mg/dL (74-106); Potassium 2.9 mmol/L (3.5-5.1); Protein, Total 5.1 g/dL (6.4-8.2); Sodium Level 145 mmol/L (136-145)
[2020-01-28] MEDS: Gabapentin 100 MG Capsule NG ×2 (08:53→17:16)
[2020-01-28] MEDS: Potassium Chloride 10mEq/100mL 10 MEQ/100 ML IV.SOLN. 100 MEQ IV BOLUS ×3 (08:58→13:02)
[2020-01-28 09:00] VITALS: BP 115/72; PULSE 72; RESP 16; TEMP 36.8; O2SAT 96
--- NOTE | 2020-01-28 09:33 | PCM.PN.SRG ---
Patient Problems: Active and Suspected Problems (Last Reviewed 01/24/20 @ 02:[address] Jaydon Choi MD) Acute diverticulitis (Acute) Sepsis (Acute) Sinus tachycardia by electrocardiogram (Acute) Sepsis (Acute) Peritonitis (Acute) Peritonitis (acute) generalized (Acute) Subjective: Patient reports she is doing well. She is passing flatus with no nausea since her NG came out. Her abdominal pain is well controlled. - Physical Exam Vitals/I&O's: Vital Signs Temp Pulse Resp BP Pulse Ox 98.7 F 68 18 117/59 L 92 01/28/20 03:00 01/28/20 03:00 01/28/20 03:00 01/28/20 03:00 01/28/20 03:00 Oxygen Flow Rate (L/min) 2 Oxygen Delivery Method Room Air Weight: 110 lb 10.753 oz Body Mass Index (BMI) 22.2 Intake and Output for Last 24 Hours 01/26/20 01/27/20 01/28/20 23:59 23:59 23:59 Intake Total 3246.17 / 3306.17 2608.33 / 2608.33 303.25 / 303.25 Output Total 1750 / 2350 2800 / 2800 300 / 300 Balance 1496.17 / 956.17 -191.67 / -191.67 3.25 / 3.25 General: Alert, Oriented x3 Lungs: Normal air movement Abdomen: Soft, Non Tender, Non-Distended Microbiology Past 72 Hours 01/24/20 13:53 Aspirate - Abdominal Gram Stain - Final 01/24/20 13:53 Aspirate - Abdominal Wound Culture - Final Citrobacter koseri Pseudomonas aeroginosa Streptococcus sanguinis 01/24/20 13:53 Aspirate - Abdominal Anaerobic Culture - Preliminary Checking for anaerobes, further studies to follow. 01/24/20 09:25 Blood Culture (Wb) - Left Hand Blood Culture - Preliminary No growth in 48 hours. 01/24/20 09:20 Blood Culture (Wb) - Right Hand Blood Culture - Preliminary No growth in 48 hours. Laboratory Results 01/27/20 07:37: Magnesium 2.1 01/28/20 05:51: Sodium 145, Potassium 2.9 L, Chloride 115 H, Carbon Dioxide 22.0, Anion Gap 8, BUN 12, Creatinine 0.55, Estim Creat Clear Calc 81.89, Est GFR (MDRD) Af Amer 142, Est GFR (MDRD) Non-Af 117, BUN/Creatinine Ratio 21.7 H, Glucose 74, Calcium 7.9 L, Total Bilirubin 0.60, AST 18, ALT 15, Alkaline Phosphatase 59, Total Protein 5.1 L, Albumin 2.1 L, Globulin 3.0, Albumin/Globulin Ratio 0.7 L 01/28/20 05:51: WBC 13.3 H, RBC 3.32 L, Hgb 9.7 L, Hct 30.6 L, MCV 92.2, MCH 29.2, MCHC 31.7 L, RDW Std Deviation 47.3 H, RDW Coeff of May 13.9, Plt Count 404, MPV 8.4, Immature Gran % (Auto) 3.000 H, Neut % (Auto) 76.5 H, Lymph % (Auto) 8.4 L, [place] % (Auto) 9.1, Eos % (Auto) 2.6, Baso % (Auto) 0.4, Absolute Neuts (auto) 10.2 H, Absolute Lymphs (auto) 1.12, Nucleated RBC % 0 Current Medications Acetaminophen (Tylenol) 650 mg PO Q4H PRN PRN PRN Reason: Pain or Fever Atenolol (Tenormin (Beta Deuce)) 12.5 mg NG DAILY [facility] Last Admin: 01/27/20 11:12 Dose: 12.5 mg Documented by: Baclofen (Lioresal) 10 mg NG TID [facility] Last Admin: 01/28/20 05:31 Dose: 10 mg Documented by: Dextrose (D50w Syringe) 0 gm IV X1 PRN; Protocol PRN Reason: Hypoglycemia Enoxaparin Sodium (Lovenox) 40 mg SC DAILY [facility] Last Admin: 01/27/20 11:12 Dose: 40 mg Documented by: Gabapentin (Neurontin) 100 mg NG BIDCM [facility] Last Admin: 01/28/20 08:53 Dose: 100 mg Documented by: Gabapentin (Neurontin) 300 mg NG QHS [facility] Last Admin: 01/27/20 22:26 Dose: 300 mg Documented by: Glucagon () 1 mg IM .X1 PRN PRN Reason: Hypoglycemia Hydromorphone HCl (Dilaudid Inj) 0.5 mg IV Q2H PRN PRN PRN Reason: Pain Score 6-10/10 Last Admin: 01/27/20 23:02 Dose: 0.5 mg Documented by: Sodium Chloride () 1,000 mls @ 15 mls/hr IV .Q48H [facility] Last Infusion: 01/28/20 08:57 Dose: 0 mls/hr Documented by: Sodium Chloride () 250 mls @ 15 mls/hr IV .[id number] PRN PRN Reason: Saline Flush Last Infusion: 01/26/20 22:42 Dose: Infused Documented by: Sodium Chloride () 250 mls @ 15 mls/hr IV .[id number] PRN PRN Reason: Additional IVPB Infusion Piperacillin Sod/Tazobactam (Sod 3.375 gm/ Sodium Chloride) 50 mls @ 12.5 mls/hr IV Q8 [facility] Last Admin: 01/28/20 05:31 Dose: 12.5 mls/hr Documented by: Pantoprazole Sodium 40 mg/ (Sodium Chloride) 110 mls @ 330 mls/hr IV Q12 [facility] Last Infusion: 01/27/20 22:47 Dose: Infused Documented by: Potassium Chloride () 10 meq in 100 mls @ 100 mls/hr IV BOLUS Q1H [facility] Stop: 01/28/20 11:59 Last Admin: 01/28/20 08:58 Dose: 100 mls/hr Documented by: Ibuprofen (Motrin) 600 mg PO Q6H PRN PRN PRN Reason: Pain Score 1-10/10 Ondansetron HCl (Zofran) 4 mg IV Q6H PRN PRN PRN Reason: NAUSEA/VOMITING Last Admin: 01/26/20 04:43 Dose: 4 mg Documented by: Prochlorperazine Edisylate (Compazine Iv) 5 - 10 mg IV Q4H PRN PRN PRN Reason: NAUSEA/VOMITING Last Admin: 01/26/20 01:31 Dose: 10 mg Documented by: Promethazine HCl (Phenergan) 12.5 mg IM Q4H PRN PRN PRN Reason: NAUSEA/VOMITING Last Admin: 01/25/20 15:07 Dose: 12.5 mg Documented by: Sodium Chloride () 10 - 40 ml IV UD PRN PRN Reason: SALINE FLUSH Last Admin: 01/27/20 09:14 Dose: 10 ml Documented by: Throat Lozenges (Cepacol Sore Throat Lozenge) 1 lozenge MUCOUS MEM Q2H PRN PRN PRN Reason: SORE THROAT Last Admin: 01/27/20 13:57 Dose: 1 lozenge Documented by: Medical Necessity - Tobacco Use Smoking Status: Never smoker Tobacco Use: Non-smoker Assessment/Plan All Active Problems (Last Reviewed 01/24/20 @ 02:[address] Jaydon Choi MD) Acute diverticulitis (Acute) Sepsis (Acute) Sinus tachycardia by electrocardiogram (Acute) Sepsis (Acute) Peritonitis (Acute) Peritonitis (acute) generalized (Acute) 64-year-old female status post laparoscopic sigmoid colectomy 1. Patient is doing well today. I will start her on a clear liquid diet. I will closed her skin incision at the bedside today. Patient's white count is decreasing nicely and I will likely stop antibiotics tomorrow. Stop IV fluids as the patient is feeling fluid overloaded and having copious urine output. Dionte Alva MD Pager: [facility] [address] [place] [address] [address] [place] [address] Office:
[2020-01-28] MEDS: Pantoprazole Sodium 40 MG Tablet PO ×2 (11:08→21:09)
[2020-01-28] MEDS: Atenolol 25 MG Tablet 12.5 MG NG (11:09)
[2020-01-28] MEDS: Enoxaparin 40 MG/0.4 ML Syringe SC (11:09)
[2020-01-28] MEDS: Ibuprofen 600 MG Tablet PO ×2 (13:14→21:09)
[2020-01-28 15:00] VITALS: BP 114/68; PULSE 63; RESP 16; TEMP 36.6; O2SAT 95
[2020-01-28] MEDS: Potassium Chloride 10mEq/100mL 10 MEQ/100 ML IV.SOLN. 50 MEQ IV BOLUS (15:00)
--- NOTE | 2020-01-28 15:24 | PN_ITS ---
Patient Problems: Active and Suspected Problems (Last Reviewed 01/24/20 @ 02:[address] Jaydon Choi MD) Acute diverticulitis (Acute) Sepsis (Acute) Sinus tachycardia by electrocardiogram (Acute) Sepsis (Acute) Peritonitis (Acute) Peritonitis (acute) generalized (Acute) Reason for Visit: Follow-up on septic shock/postoperative ileus Subjective: Patient was seen and examined. Her NG tube was really moved yesterday. Been passing flatus but no bowel movement. Denied any nausea or vomiting or fever or chills. Wound cultures are positive for Citrobacter, Pseudomonas, Streptococcus. Objective: Physical exam: General: Alert, Oriented x3, Cooperative, No apparent distress HEENT: Atraumatic, PERRLA, EOMI, Normocephalic Oral: Moist Mucosa Neck: Supple Lungs: Clear to auscultation, Normal air movement Cardiovascular: Regular rate, Regular Rhythm, Normal S1, Normal S2, No murmurs Abdomen: Soft, Non-Distended, No Hepato-splenomegaly, Bowel Sounds Not Present, Tender - - Dressings in place Extremities: No edema Skin: No rashes Musculoskeletal: No Tenderness to Palpation of Joints or Extremities Lymphatic: No Cervical, Supraclavicular, or Inguinal Adenopathy Neurological: Cranial nerves II-XII grossly intact, Neuro grossly intact Psych/Mental Status: Normal Affect, Appropriate Vitals/I&O's: Vital Signs Temp Pulse Resp BP Pulse Ox 97.8 F 63 16 114/68 95 01/28/20 15:00 01/28/20 15:00 01/28/20 15:00 01/28/20 15:00 01/28/20 15:00 Oxygen Flow Rate (L/min) 2 Oxygen Delivery Method Room Air Weight: 50.2 kg Body Mass Index (BMI) 22.2 Intake and Output for Last 24 Hours 01/26/20 01/27/20 01/28/20 23:59 23:59 23:59 Intake Total 3246.17 / 3306.17 2608.33 / 2608.33 653.25 / 653.25 Output Total 1750 / 2350 2800 / 2800 300 / 300 Balance 1496.17 / 956.17 -191.67 / -191.67 353.25 / 353.25 Microbiology Past 72 Hours 01/24/20 13:53 Aspirate - Abdominal Gram Stain - Final 01/24/20 13:53 Aspirate - Abdominal Wound Culture - Final Citrobacter koseri Pseudomonas aeroginosa Streptococcus sanguinis 01/24/20 13:53 Aspirate - Abdominal Anaerobic Culture - Preliminary Checking for anaerobes, further studies to follow. 01/24/20 09:25 Blood Culture (Wb) - Left Hand Blood Culture - Preliminary No growth in 48 hours. 01/24/20 09:20 Blood Culture (Wb) - Right Hand Blood Culture - Preliminary No growth in 48 hours. Laboratory Results 01/28/20 05:51: Sodium 145, Potassium 2.9 L, Chloride 115 H, Carbon Dioxide 22.0, Anion Gap 8, BUN 12, Creatinine 0.55, Estim Creat Clear Calc 81.89, Est GFR (MDRD) Af Amer 142, Est GFR (MDRD) Non-Af 117, BUN/Creatinine Ratio 21.7 H, Glucose 74, Calcium 7.9 L, Total Bilirubin 0.60, AST 18, ALT 15, Alkaline Phosphatase 59, Total Protein 5.1 L, Albumin 2.1 L, Globulin 3.0, Albumin/Globulin Ratio 0.7 L 01/28/20 05:51: WBC 13.3 H, RBC 3.32 L, Hgb 9.7 L, Hct 30.6 L, MCV 92.2, MCH 29.2, MCHC 31.7 L, RDW Std Deviation 47.3 H, RDW Coeff of May 13.9, Plt Count 404, MPV 8.4, Immature Gran % (Auto) 3.000 H, Neut % (Auto) 76.5 H, Lymph % (Auto) 8.4 L, [place] % (Auto) 9.1, Eos % (Auto) 2.6, Baso % (Auto) 0.4, Absolute Neuts (auto) 10.2 H, Absolute Lymphs (auto) 1.12, Nucleated RBC % 0 Current Medications Acetaminophen (Tylenol) 650 mg PO Q4H PRN PRN PRN Reason: Pain or Fever Atenolol (Tenormin (Beta Deuce)) 12.5 mg NG DAILY [facility] Last Admin: 01/28/20 11:09 Dose: 12.5 mg Documented by: Baclofen (Lioresal) 10 mg NG TID [facility] Last Admin: 01/28/20 13:03 Dose: 10 mg Documented by: Dextrose (D50w Syringe) 0 gm IV X1 PRN; Protocol PRN Reason: Hypoglycemia Enoxaparin Sodium (Lovenox) 40 mg SC DAILY [facility] Last Admin: 01/28/20 11:09 Dose: 40 mg Documented by: Gabapentin (Neurontin) 100 mg NG BIDCM [facility] Last Admin: 01/28/20 08:53 Dose: 100 mg Documented by: Gabapentin (Neurontin) 300 mg NG QHS [facility] Last Admin: 01/27/20 22:26 Dose: 300 mg Documented by: Glucagon () 1 mg IM .X1 PRN PRN Reason: Hypoglycemia Hydromorphone HCl (Dilaudid Inj) 0.5 mg IV Q2H PRN PRN PRN Reason: Pain Score 6-10/10 Last Admin: 01/27/20 23:02 Dose: 0.5 mg Documented by: Sodium Chloride () 1,000 mls @ 15 mls/hr IV .Q48H [facility] Last Infusion: 01/28/20 08:57 Dose: 0 mls/hr Documented by: Sodium Chloride () 250 mls @ 15 mls/hr IV .[id number] PRN PRN Reason: Saline Flush Last Infusion: 01/26/20 22:42 Dose: Infused Documented by: Sodium Chloride () 250 mls @ 15 mls/hr IV .[id number] PRN PRN Reason: Additional IVPB Infusion Piperacillin Sod/Tazobactam (Sod 3.375 gm/ Sodium Chloride) 50 mls @ 12.5 mls/hr IV Q8 [facility] Last Admin: 01/28/20 13:02 Dose: 12.5 mls/hr Documented by: Ibuprofen (Motrin) 600 mg PO Q6H PRN PRN PRN Reason: Pain Score 1-10/10 Last Admin: 01/28/20 13:14 Dose: 600 mg Documented by: Ondansetron HCl (Zofran) 4 mg IV Q6H PRN PRN PRN Reason: NAUSEA/VOMITING Last Admin: 01/26/20 04:43 Dose: 4 mg Documented by: Pantoprazole Sodium (Protonix) 40 mg PO BID [facility] Last Admin: 01/28/20 11:08 Dose: 40 mg Documented by: Prochlorperazine Edisylate (Compazine Iv) 5 - 10 mg IV Q4H PRN PRN PRN Reason: NAUSEA/VOMITING Last Admin: 01/26/20 01:31 Dose: 10 mg Documented by: Promethazine HCl (Phenergan) 12.5 mg IM Q4H PRN PRN PRN Reason: NAUSEA/VOMITING Last Admin: 01/25/20 15:07 Dose: 12.5 mg Documented by: Sodium Chloride () 10 - 40 ml IV UD PRN PRN Reason: SALINE FLUSH Last Admin: 01/27/20 09:14 Dose: 10 ml Documented by: Throat Lozenges (Cepacol Sore Throat Lozenge) 1 lozenge MUCOUS MEM Q2H PRN PRN PRN Reason: SORE THROAT Last Admin: 01/27/20 13:57 Dose: 1 lozenge Documented by: STROKE Vital Signs/Narrative: Vital Signs Temp Pulse Resp BP Pulse Ox 01/28/20 15:00 97.8 F 63 16 114/68 95 Medical Necessity - Tobacco Use Smoking Status: Never smoker Tobacco Use: Non-smoker Assessment/Plan All Active Problems (Last Reviewed 01/24/20 @ 02:[address] Jaydon Choi MD) Acute diverticulitis (Acute) Sepsis (Acute) Sinus tachycardia by electrocardiogram (Acute) Sepsis (Acute) Peritonitis (Acute) Peritonitis (acute) generalized (Acute) 1. POD #4, status post laparoscopic sigmoid colectomy with primary anastomosis for acute perforated diverticulitis/purulent peritonitis/pelvic abscess Pain is fairly controlled, continue on IV antibiotics, conservative treatment, general surgery following 2. Hypokalemia, K 2.9, will replace orally and IV Recheck in am 3. Septic shock secondary to acute perforated diverticulitis/purulent peritonitis/pelvic abscess, resolved Blood cultures are negative, no fevers, stable vitals WBC count is decreasing, on IV Zosyn(day6) Will switch to oral Levaquin and Flagyl 4. Post-op ileus, resolved 5. DVT PPx- Lovenox SC Inpatient E&M: [id number] [facility] L2
[2020-01-28 21:00] VITALS: BP 122/71; PULSE 70; RESP 16; TEMP 37.4; O2SAT 98
[2020-01-28] MEDS: Gabapentin 300 MG Capsule NG (21:10)
[2020-01-28] MEDS: 0.9% Saline Lock 10 ML Syringe IV (21:10)
[2020-01-29 03:00] VITALS: BP 108/64; PULSE 78; RESP 16; TEMP 37; O2SAT 94
[2020-01-29] MEDS: Baclofen 10 MG Tablet NG ×2 (06:18→14:26)
[2020-01-29 06:34] LABS: Hematocrit 29.7 % (37-47); Hemoglobin 9.7 g/dL (12.0-15.0); Mean Corp Hgb Conc 32.7 g/dL (32-36); Mean Corpuscular Hgb 29.3 pg (27.0-32.0); Mean Corpuscular Volume 89.7 fL (81-99); Mean Platelet Vol. 8.4 fl (6.2-12.0); POSITIVE COUNT YES; POSITIVE MORPHOLOGY YES; Platelet Count 394 K/mm3 (150-450); RBC Distribution Width CV 13.9 % (11.6-14.6); RBC Distribution Width SD 45.4 fl (35.1-43.9); Red Blood Count 3.31 M/mm3 (4.2-5.4); White Blood Count 12.2 K/mm3 (4.4-11.0)
[2020-01-29 06:37] LABS: Differential Indicated MANUAL DIFF
[2020-01-29 07:02] LABS: ALB/GLOB Ratio 0.7 RATIO (0.9-2.4); AST(SGOT) 20 U/L (15-37); Alanine Aminotransfer ALT/SGPT 14 U/L (13-56); Albumin, Serum 1.9 g/dL (3.2-5.0); Alkaline Phosphatase 55 U/L (45-117); Anion Gap 6 (5-15); BUN 9 mg/dL (7-18); BUN/Creat Ratio 16.9 RATIO (10-20); Calcium,Total 7.7 mg/dL (8.5-10.1); Chloride 113 mmol/L (98-107); Creatinine, Serum 0.53 mg/dL (0.55-1.02); EST Glomerular Filtration Rate 123 mL/min (>60); Est Glom Filt Rate - Afr Amer 149 mL/min (>60); Estimated Creatinine Clearance 84.98 ml/min; Globulin 2.8 g/dL (2.2-4.2); Glucose 82 mg/dL (74-106); Potassium 3.4 mmol/L (3.5-5.1); Protein, Total 4.7 g/dL (6.4-8.2); Sodium Level 142 mmol/L (136-145)
[2020-01-29 07:16] LABS: Absolute Neutrophil Count 9.7 X10^3/uL (2.0-7.7); Lymphocyte 14 % (19-41); Metamyelocyte 2 % (0-1); Monocyte 4 % (0-10); Neutrophil # 9.74 X10^3/uL (2.7-7.7); Neutrophil-Band 6 % (0-5); Neutrophil-Segmented 74 % (47-70); Total Cells Counted 100 (MANUAL DIFF)
[2020-01-29 07:17] LABS: Absolute Lymphocyte Count 1.71 X10^3/uL (0.83-4.51); Lymphocyte # 1.71 X10^3/ul (4.0); Monocyte# 0.49 X10^3/uL; Reactive Lymphocyte RARE
--- NOTE | 2020-01-29 07:57 | PCM.PN.HOSP ---
Patient Problems: Active and Suspected Problems (Last Reviewed 01/24/20 @ 02:[address] Jaydon Choi MD) Acute diverticulitis (Acute) Sepsis (Acute) Sinus tachycardia by electrocardiogram (Acute) Sepsis (Acute) Peritonitis (Acute) Peritonitis (acute) generalized (Acute) Vitals/I&O's: Vital Signs Temp Pulse Resp BP Pulse Ox 98.6 F 78 16 108/64 94 01/29/20 03:00 01/29/20 03:00 01/29/20 03:00 01/29/20 03:00 01/29/20 03:00 Oxygen Flow Rate (L/min) 2 Oxygen Delivery Method Room Air Weight: 51 kg Body Mass Index (BMI) 22.2 Intake and Output for Last 24 Hours 01/27/20 01/28/20 01/29/20 23:59 23:59 23:59 Intake Total 2608.33 / 2608.33 1303.25 / 1553.25 450 / 450 Output Total 2800 / 2800 750 / 750 400 / 400 Balance -191.67 / -191.67 553.25 / 803.25 50 / 50 Microbiology Past 72 Hours 01/24/20 13:53 Aspirate - Abdominal Gram Stain - Final 01/24/20 13:53 Aspirate - Abdominal Wound Culture - Final Citrobacter koseri Pseudomonas aeroginosa Streptococcus sanguinis 01/24/20 13:53 Aspirate - Abdominal Anaerobic Culture - Final Bifidobacterium spp Bacteroides fragilis Bacteroides vulgatus Bacteroides ovatus 01/24/20 09:25 Blood Culture (Wb) - Left Hand Blood Culture - Preliminary No growth in 48 hours. 01/24/20 09:20 Blood Culture (Wb) - Right Hand Blood Culture - Preliminary No growth in 48 hours. Laboratory Results 01/29/20 06:09: WBC 12.2 H, RBC 3.31 L, Hgb 9.7 L, Hct 29.7 L, MCV 89.7, MCH 29.3, MCHC 32.7, RDW Std Deviation 45.4 H, RDW Coeff of May 13.9, Plt Count 394, MPV 8.4, Neut % (Auto) Not Reportable, Absolute Neuts (auto) 9.7 H, Absolute Lymphs (auto) 1.71, Total Counted 100, Neutrophils % (Manual) 74 H, Band Neutrophils % 6 H, Lymphocytes % (Manual) 14 L, Monocytes % (Manual) 4, Metamyelocytes % 2 H, Diff Path Review May foll, Reactive Lymphocytes RARE 01/29/20 06:09: Sodium 142, Potassium 3.4 L, Chloride 113 H, Carbon Dioxide 23.0, Anion Gap 6, BUN 9, Creatinine 0.53 L, Estim Creat Clear Calc 84.98, Est GFR (MDRD) Af Amer 149, Est GFR (MDRD) Non-Af 123, BUN/Creatinine Ratio 16.9, Glucose 82, Calcium 7.7 L, Total Bilirubin 0.70, AST 20, ALT 14, Alkaline Phosphatase 55, Total Protein 4.7 L, Albumin 1.9 L, Globulin 2.8, Albumin/Globulin Ratio 0.7 L Current Medications Acetaminophen (Tylenol) 650 mg PO Q4H PRN PRN PRN Reason: Pain or Fever Atenolol (Tenormin (Beta Deuce)) 12.5 mg NG DAILY [facility] Last Admin: 01/28/20 11:09 Dose: 12.5 mg Documented by: Baclofen (Lioresal) 10 mg NG TID [facility] Last Admin: 01/29/20 06:18 Dose: 10 mg Documented by: Dextrose (D50w Syringe) 0 gm IV X1 PRN; Protocol PRN Reason: Hypoglycemia Enoxaparin Sodium (Lovenox) 40 mg SC DAILY [facility] Last Admin: 01/28/20 11:09 Dose: 40 mg Documented by: Gabapentin (Neurontin) 100 mg NG BIDCM [facility] Last Admin: 01/28/20 17:16 Dose: 100 mg Documented by: Gabapentin (Neurontin) 300 mg NG QHS [facility] Last Admin: 01/28/20 21:10 Dose: 300 mg Documented by: Glucagon () 1 mg IM .X1 PRN PRN Reason: Hypoglycemia Hydromorphone HCl (Dilaudid Inj) 0.5 mg IV Q2H PRN PRN PRN Reason: Pain Score 6-10/10 Last Admin: 01/27/20 23:02 Dose: 0.5 mg Documented by: Sodium Chloride () 1,000 mls @ 15 mls/hr IV .Q48H [facility] Last Infusion: 01/29/20 03:58 Dose: Infused Documented by: Sodium Chloride () 250 mls @ 15 mls/hr IV .[id number] PRN PRN Reason: Saline Flush Last Infusion: 01/26/20 22:42 Dose: Infused Documented by: Sodium Chloride () 250 mls @ 15 mls/hr IV .[id number] PRN PRN Reason: Additional IVPB Infusion Piperacillin Sod/Tazobactam (Sod 3.375 gm/ Sodium Chloride) 50 mls @ 12.5 mls/hr IV Q8 [facility] Last Admin: 01/29/20 06:18 Dose: 12.5 mls/hr Documented by: Ibuprofen (Motrin) 600 mg PO Q6H PRN PRN PRN Reason: Pain Score 1-10/10 Last Admin: 01/28/20 21:09 Dose: 600 mg Documented by: Ondansetron HCl (Zofran) 4 mg IV Q6H PRN PRN PRN Reason: NAUSEA/VOMITING Last Admin: 01/26/20 04:43 Dose: 4 mg Documented by: Pantoprazole Sodium (Protonix) 40 mg PO BID [facility] Last Admin: 01/28/20 21:09 Dose: 40 mg Documented by: Prochlorperazine Edisylate (Compazine Iv) 5 - 10 mg IV Q4H PRN PRN PRN Reason: NAUSEA/VOMITING Last Admin: 01/26/20 01:31 Dose: 10 mg Documented by: Promethazine HCl (Phenergan) 12.5 mg IM Q4H PRN PRN PRN Reason: NAUSEA/VOMITING Last Admin: 01/25/20 15:07 Dose: 12.5 mg Documented by: Sodium Chloride () 10 - 40 ml IV UD PRN PRN Reason: SALINE FLUSH Last Admin: 01/28/20 21:10 Dose: 10 ml Documented by: Throat Lozenges (Cepacol Sore Throat Lozenge) 1 lozenge MUCOUS MEM Q2H PRN PRN PRN Reason: SORE THROAT Last Admin: 01/27/20 13:57 Dose: 1 lozenge Documented by: Medical Necessity - Tobacco Use Smoking Status: Never smoker Tobacco Use: Non-smoker Assessment/Plan All Active Problems (Last Reviewed 01/24/20 @ 02:[address] Jaydon Choi MD) Acute diverticulitis (Acute) Sepsis (Acute) Sinus tachycardia by electrocardiogram (Acute) Sepsis (Acute) Peritonitis (Acute) Peritonitis (acute) generalized (Acute)
[2020-01-29 07:58] VITALS: O2SAT 96
[2020-01-29] MEDS: Gabapentin 100 MG Capsule NG ×2 (08:11→17:00)
--- NOTE | 2020-01-29 08:20 | PN.SURG_ITS ---
Patient Problems: Active and Suspected Problems (Last Reviewed 01/24/20 @ 02:[address] Jaydon Choi MD) Acute diverticulitis (Acute) Sepsis (Acute) Sinus tachycardia by electrocardiogram (Acute) Sepsis (Acute) Peritonitis (Acute) Peritonitis (acute) generalized (Acute) Subjective: Patient reports that she is doing well. She had a bowel movement and is passing flatus and she tolerated clear liquids with no nausea or vomiting. - Physical Exam Vitals/I&O's: Vital Signs Temp Pulse Resp BP Pulse Ox 98.6 F 78 16 108/64 94 01/29/20 03:00 01/29/20 03:00 01/29/20 03:00 01/29/20 03:00 01/29/20 03:00 Oxygen Flow Rate (L/min) 2 Oxygen Delivery Method Room Air Weight: 112 lb 6.972 oz Body Mass Index (BMI) 22.2 Intake and Output for Last 24 Hours 01/27/20 01/28/20 01/29/20 23:59 23:59 23:59 Intake Total 2608.33 / 2608.33 1303.25 / 1553.25 450 / 450 Output Total 2800 / 2800 750 / 750 400 / 400 Balance -191.67 / -191.67 553.25 / 803.25 50 / 50 General: Alert, Oriented x3 Lungs: Normal air movement Abdomen: Soft, Non Tender, Non-Distended Microbiology Past 72 Hours 01/24/20 13:53 Aspirate - Abdominal Gram Stain - Final 01/24/20 13:53 Aspirate - Abdominal Wound Culture - Final Citrobacter koseri Pseudomonas aeroginosa Streptococcus sanguinis 01/24/20 13:53 Aspirate - Abdominal Anaerobic Culture - Final Bifidobacterium spp Bacteroides fragilis Bacteroides vulgatus Bacteroides ovatus 01/24/20 09:25 Blood Culture (Wb) - Left Hand Blood Culture - Preliminary No growth in 48 hours. 01/24/20 09:20 Blood Culture (Wb) - Right Hand Blood Culture - Preliminary No growth in 48 hours. Laboratory Results 01/29/20 06:09: WBC 12.2 H, RBC 3.31 L, Hgb 9.7 L, Hct 29.7 L, MCV 89.7, MCH 29.3, MCHC 32.7, RDW Std Deviation 45.4 H, RDW Coeff of May 13.9, Plt Count 394, MPV 8.4, Neut % (Auto) Not Reportable, Absolute Neuts (auto) 9.7 H, Absolute Lymphs (auto) 1.71, Total Counted 100, Neutrophils % (Manual) 74 H, Band Neutrophils % 6 H, Lymphocytes % (Manual) 14 L, Monocytes % (Manual) 4, Metamyelocytes % 2 H, Diff Path Review May foll, Reactive Lymphocytes RARE 01/29/20 06:09: Sodium 142, Potassium 3.4 L, Chloride 113 H, Carbon Dioxide 23.0, Anion Gap 6, BUN 9, Creatinine 0.53 L, Estim Creat Clear Calc 84.98, Est GFR (MDRD) Af Amer 149, Est GFR (MDRD) Non-Af 123, BUN/Creatinine Ratio 16.9, Glucose 82, Calcium 7.7 L, Total Bilirubin 0.70, AST 20, ALT 14, Alkaline Phosphatase 55, Total Protein 4.7 L, Albumin 1.9 L, Globulin 2.8, Albumin/Globulin Ratio 0.7 L Current Medications Acetaminophen (Tylenol) 650 mg PO Q4H PRN PRN PRN Reason: Pain or Fever Atenolol (Tenormin (Beta Deuce)) 12.5 mg NG DAILY [facility] Last Admin: 01/28/20 11:09 Dose: 12.5 mg Documented by: Baclofen (Lioresal) 10 mg NG TID [facility] Last Admin: 01/29/20 06:18 Dose: 10 mg Documented by: Dextrose (D50w Syringe) 0 gm IV X1 PRN; Protocol PRN Reason: Hypoglycemia Enoxaparin Sodium (Lovenox) 40 mg SC DAILY [facility] Last Admin: 01/28/20 11:09 Dose: 40 mg Documented by: Gabapentin (Neurontin) 100 mg NG BIDCM [facility] Last Admin: 01/29/20 08:11 Dose: 100 mg Documented by: Gabapentin (Neurontin) 300 mg NG QHS [facility] Last Admin: 01/28/20 21:10 Dose: 300 mg Documented by: Glucagon () 1 mg IM .X1 PRN PRN Reason: Hypoglycemia Hydromorphone HCl (Dilaudid Inj) 0.5 mg IV Q2H PRN PRN PRN Reason: Pain Score 6-10/10 Last Admin: 01/27/20 23:02 Dose: 0.5 mg Documented by: Sodium Chloride () 1,000 mls @ 15 mls/hr IV .Q48H [facility] Last Infusion: 01/29/20 03:58 Dose: Infused Documented by: Sodium Chloride () 250 mls @ 15 mls/hr IV .[id number] PRN PRN Reason: Saline Flush Last Infusion: 01/26/20 22:42 Dose: Infused Documented by: Sodium Chloride () 250 mls @ 15 mls/hr IV .[id number] PRN PRN Reason: Additional IVPB Infusion Ibuprofen (Motrin) 600 mg PO Q6H PRN PRN PRN Reason: Pain Score 1-10/10 Last Admin: 01/28/20 21:09 Dose: 600 mg Documented by: Ondansetron HCl (Zofran) 4 mg IV Q6H PRN PRN PRN Reason: NAUSEA/VOMITING Last Admin: 01/26/20 04:43 Dose: 4 mg Documented by: Pantoprazole Sodium (Protonix) 40 mg PO BID [facility] Last Admin: 01/28/20 21:09 Dose: 40 mg Documented by: Prochlorperazine Edisylate (Compazine Iv) 5 - 10 mg IV Q4H PRN PRN PRN Reason: NAUSEA/VOMITING Last Admin: 01/26/20 01:31 Dose: 10 mg Documented by: Promethazine HCl (Phenergan) 12.5 mg IM Q4H PRN PRN PRN Reason: NAUSEA/VOMITING Last Admin: 01/25/20 15:07 Dose: 12.5 mg Documented by: Sodium Chloride () 10 - 40 ml IV UD PRN PRN Reason: SALINE FLUSH Last Admin: 01/28/20 21:10 Dose: 10 ml Documented by: Throat Lozenges (Cepacol Sore Throat Lozenge) 1 lozenge MUCOUS MEM Q2H PRN PRN PRN Reason: SORE THROAT Last Admin: 01/27/20 13:57 Dose: 1 lozenge Documented by: Medical Necessity - Tobacco Use Smoking Status: Never smoker Tobacco Use: Non-smoker Assessment/Plan All Active Problems (Last Reviewed 01/24/20 @ 02:[address] Jaydon Choi MD) Acute diverticulitis (Acute) Sepsis (Acute) Sinus tachycardia by electrocardiogram (Acute) Sepsis (Acute) Peritonitis (Acute) Peritonitis (acute) generalized (Acute) 64-year-old female status post sigmoid colectomy 1. Patient is doing well on clear liquids and I will advance her to a transitional diet. I will also stop her Zosyn and start oral antibiotics. The Pseudomonas in her cultures is sensitive to Cipro so I will start oral Cipro. She would likely be okay for discharge later today. Dionte Alva MD Pager: [facility] [address] [place] [address] [address] [place] [address] Office:
[2020-01-29 09:00] VITALS: BP 110/77; PULSE 72; RESP 16; TEMP 36.3; O2SAT 94
[2020-01-29] MEDS: Enoxaparin 40 MG/0.4 ML Syringe SC (10:20)
[2020-01-29] MEDS: Atenolol 25 MG Tablet 12.5 MG NG (10:20)
[2020-01-29] MEDS: Ciprofloxacin 500 MG Tablet PO ×2 (10:20→17:00)
[2020-01-29] MEDS: Pantoprazole Sodium 40 MG Tablet PO (10:23)
[2020-01-29] MEDS: Ibuprofen 600 MG Tablet PO (10:23)
--- NOTE | 2020-01-29 14:37 | PCM.DC ---
- Discharge Diagnoses Current Active Problems: Current Active and Chronic Problems (Last Reviewed 01/24/20 @ 02:[address] Jaydon Choi MD) Acute diverticulitis (Acute) Sepsis (Acute) Sinus tachycardia by electrocardiogram (Acute) Sepsis (Acute) Peritonitis (Acute) Peritonitis (acute) generalized (Acute) Reason(s) for Visit for Discharge Instructions: Peritonitis, sigmoid diverticulitis You will use the following diet at home:: Regular Your food should be the consistency of: Regular Your liquids should be the consistency of: Regular/Thin Discharge Activity: Return to Normal Activity Call your doctor if your incision/area has: Continuous Slow Oozing, Sudden Increased Bleeding, Increased Pain/ Swelling, Increased Redness, Foul Smelling Discharge, Swelling at the incision site Call your doctor if you observe: Fever of 101 or Higher, Coldness, Increased Pain, Inability to have a bowel movement, Dizziness Cleanse incision/area with: Keep Dressing Clean & Dry Additional Instructions: Ok to shower. Change your dressing daily per wound instructions. Follow-up with Dr. Alva in 1 week. Monitor for infection. No heavy lifting of weights more than 25 pounds. Allergies/Adverse Reactions: Allergies Sulfa (Sulfonamide Antibiotics) Allergy (Intermediate, Verified 01/23/20 18:06) Hives Medications to take at Discharge Baclofen 10 mg PO TID 01/30/17 Gabapentin [Neurontin] 100 mg PO BIDCM 01/30/17 Gabapentin [Neurontin] 300 mg PO QHS 01/30/17 Alendronate Sodium 35 mg PO TOBIAS 06/06/19 Atenolol [Tenormin (beta pat)] 12.5 mg PO DAILY 06/06/19 Cholecalciferol (Vitamin D3) [Vitamin D3] 2,000 unit PO DAILY 06/06/19 calcium carbonate 500 mg calcium (1,250 mg) chewable tablet 500 mg PO DAILY 10/07/19 Acetaminophen [Tylenol Tablet] 650 mg PO Q4H PRN PRN tablet 01/29/20 Ibuprofen [Motrin] 600 mg PO Q6H PRN PRN tablet 01/29/20 Pantoprazole Sodium [Protonix] 40 mg PO BID 30 Days #60 tab 01/29/20 The following prescriptions were given: Pantoprazole Sodium [Protonix] 40 mg PO BID 30 Days #60 tab Transmission Status: Pending to [id number] Primary Care Physician: Meghna Gregory DO [Primary Care Provider] - Please follow up with your Primary Care Physician in: within 1-2 weeks Test Results: Test results from this visit will be discussed in further detail at your follow-up appointment, if applicable. Please Follow Up With: Dionte Alva MD When: in 1 week Proposed Discharge Date: 01/29/20
--- NOTE | 2020-01-29 14:43 | DS.PCM_ITS ---
Discharge Date and Diagnosis - Problem List Patient Problems: Active and Suspected Problems (Last Reviewed 01/24/20 @ 02:[address] Jaydon Choi MD) Acute diverticulitis (Acute) Sepsis (Acute) Sinus tachycardia by electrocardiogram (Acute) Sepsis (Acute) Peritonitis (Acute) Peritonitis (acute) generalized (Acute) Date of Admission: 01/23/20 Date of Discharge: 01/29/20 - Primary Discharge Diagnosis Active and Suspected Problems (Last Reviewed 01/24/20 @ 02:[address] Jaydon Choi MD) Septic shock Acute diverticulitis (Acute) Acute purulent peritonitis Hypokalemia Hypomagnesemia - Secondary Discharge Diagnosis Multiple sclerosis Hospital Course and Treatment Imaging Results: Clinical Impression(s) from Imaging Studies Abdomen/Pelvis CT 01/23/20 18:22 IMPRESSION: 1. Colonic diverticulosis. Deep pelvic fatty stranding compatible with diverticulitis. There is a small amount of free fluid in the deep pelvis. No extraluminal air is seen. 2. There is wall thickening of several loops of small bowel in the pelvis. Findings may represent reactive inflammation associated with probable diverticulitis versus focal enteritis. 3. Small hiatal hernia. 4. Small bilateral renal cysts. 5. Small fat-containing umbilical hernia. Electronically Signed: Colton Serna MD at 20:35 EDT , Service support , KUB X-Ray 01/25/20 20:05 IMPRESSION: The predominant pattern is dilated small bowel with a modest amount of colon content in the immediate postoperative period most likely ileus. Continued follow-up warranted if distention persists to rule out evolving small bowel obstruction. N.B. : The above information has been verbally conveyed by Marva Hayes MD to Dr. Artie MD, on 01/25/2020 20:37:43 (ET). Electronically Signed: Marva Hayes MD at 20:40 EDT , Service support , ADDENDUM: 01/25/202046 IMPRESSION: The predominant pattern is dilated small bowel with a modest amount of colon content in the immediate postoperative period most likely ileus. Continued follow-up warranted if distention persists to rule out evolving small bowel obstruction. N.B. : The above information has been verbally conveyed by Marva Hayes MD to Dr. Artie MD, on 01/25/2020 20:37:43 (ET). Electronically Signed: Marva Hayes MD at 20:40 EDT , Service support , KUB X-Ray 01/25/20 22:00 IMPRESSION: NG tube terminates in the gastric lumen well below the gastroesophageal junction with decreased air distention of the stomach. Continued air-filled dilated small bowel now with more air passing into the colon as visualized in the hepatic flexure and transverse colon. Findings consistent with postoperative ileus. Electronically Signed: Marva Hayes MD at 22:24 EDT , Service support , General surgery Operations: None Procedures: None Summary of Care Provided: The patient is a 64 year old F with past medical history of diverticulosis, multiple sclerosis, hypertension was admitted with 1 day history of epigastric pain that radiates to her lower abdomen. Patient was found to have acute perforated diverticulitis with peritonitis. General surgery was consulted and patient underwent laparoscopic sigmoid colectomy with primary anastomosis.Findings intraoperatively included acute diverticulitis with perforation and purulent peritonitis. Also managed as septic shock and maintained on IV Zosyn. Operatively, she was in the ICU for 1 day and transferred out. During the course of her hospital stay, her potassium and magnesium were low and that was replaced. Patient continued to improve and tolerated advancement in her diet. She completed 5 days of antibiotics in the hospital.She was discharged to follow-up with general surgery in 1 week. She was asked not to lift heavy weights. Patient Problems: Active and Suspected Problems (Last Reviewed 01/24/20 @ 02:[address] Jaydon Choi MD) Acute diverticulitis (Acute) Sepsis (Acute) Sinus tachycardia by electrocardiogram (Acute) Sepsis (Acute) Peritonitis (Acute) Peritonitis (acute) generalized (Acute) Subjective: On the day of discharge, patient was seen and examined. Denied any new complaints. She has been able to move above. Tolerated advancement in her diet. Objective: Physical exam: General: Alert, Oriented x3, Cooperative, No apparent distress HEENT: Atraumatic, PERRLA, EOMI, Normocephalic Oral: Moist Mucosa Neck: Supple Lungs: Clear to auscultation, Normal air movement Cardiovascular: Regular rate, Regular Rhythm, Normal S1, Normal S2, No murmurs Abdomen: Soft, Non-Distended, No Hepato-splenomegaly, Bowel Sounds Not Present, Tender - - Dressings in place Extremities: No edema Skin: No rashes Musculoskeletal: No Tenderness to Palpation of Joints or Extremities Lymphatic: No Cervical, Supraclavicular, or Inguinal Adenopathy Neurological: Cranial nerves II-XII grossly intact, Neuro grossly intact Psych/Mental Status: Normal Affect, Appropriate - Physical Exam Vitals/I&O's: Vital Signs Temp Pulse Resp BP Pulse Ox 97.3 F L 72 16 110/77 94 01/29/20 09:00 01/29/20 09:00 01/29/20 09:00 01/29/20 09:00 01/29/20 09:00 Oxygen Flow Rate (L/min) 2 Oxygen Delivery Method Room Air Weight: 51 kg Body Mass Index (BMI) 22.2 Intake and Output for Last 24 Hours 01/27/20 01/28/20 01/29/20 23:59 23:59 23:59 Intake Total 2608.33 / 2608.33 1303.25 / 1553.25 1250 / 1250 Output Total 2800 / 2800 750 / 750 400 / 400 Balance -191.67 / -191.67 553.25 / 803.25 850 / 850 Microbiology Past 72 Hours 01/24/20 09:25 Blood Culture (Wb) - Left Hand Blood Culture - Final No growth in 5 days. 01/24/20 09:20 Blood Culture (Wb) - Right Hand Blood Culture - Final No growth in 5 days. 01/24/20 13:53 Aspirate - Abdominal Gram Stain - Final 01/24/20 13:53 Aspirate - Abdominal Wound Culture - Final Citrobacter koseri Pseudomonas aeroginosa Streptococcus sanguinis 01/24/20 13:53 Aspirate - Abdominal Anaerobic Culture - Final Bifidobacterium spp Bacteroides fragilis Bacteroides vulgatus Bacteroides ovatus Laboratory Results 01/29/20 06:09: WBC 12.2 H, RBC 3.31 L, Hgb 9.7 L, Hct 29.7 L, MCV 89.7, MCH 29.3, MCHC 32.7, RDW Std Deviation 45.4 H, RDW Coeff of May 13.9, Plt Count 394, MPV 8.4, Neut % (Auto) Not Reportable, Absolute Neuts (auto) 9.7 H, Absolute Lymphs (auto) 1.71, Total Counted 100, Neutrophils % (Manual) 74 H, Band Neutrophils % 6 H, Lymphocytes % (Manual) 14 L, Monocytes % (Manual) 4, Metamyelocytes % 2 H, Diff Path Review May foll, Reactive Lymphocytes RARE 01/29/20 06:09: Sodium 142, Potassium 3.4 L, Chloride 113 H, Carbon Dioxide 23.0, Anion Gap 6, BUN 9, Creatinine 0.53 L, Estim Creat Clear Calc 84.98, Est GFR (MDRD) Af Amer 149, Est GFR (MDRD) Non-Af 123, BUN/Creatinine Ratio 16.9, Glucose 82, Calcium 7.7 L, Total Bilirubin 0.70, AST 20, ALT 14, Alkaline Phosphatase 55, Total Protein 4.7 L, Albumin 1.9 L, Globulin 2.8, Albumin/Globulin Ratio 0.7 L Current Medications Acetaminophen (Tylenol) 650 mg PO Q4H PRN PRN PRN Reason: Pain or Fever Atenolol (Tenormin (Beta Deuce)) 12.5 mg NG DAILY [facility] Last Admin: 01/29/20 10:20 Dose: 12.5 mg Documented by: Baclofen (Lioresal) 10 mg NG TID [facility] Last Admin: 01/29/20 14:26 Dose: 10 mg Documented by: Ciprofloxacin HCl (Cipro) 500 mg PO BID [facility] Last Admin: 01/29/20 10:20 Dose: 500 mg Documented by: Dextrose (D50w Syringe) 0 gm IV X1 PRN; Protocol PRN Reason: Hypoglycemia Enoxaparin Sodium (Lovenox) 40 mg SC DAILY [facility] Last Admin: 01/29/20 10:20 Dose: 40 mg Documented by: Gabapentin (Neurontin) 100 mg NG BIDCM [facility] Last Admin: 01/29/20 08:11 Dose: 100 mg Documented by: Gabapentin (Neurontin) 300 mg NG QHS [facility] Last Admin: 01/28/20 21:10 Dose: 300 mg Documented by: Glucagon () 1 mg IM .X1 PRN PRN Reason: Hypoglycemia Sodium Chloride () 1,000 mls @ 15 mls/hr IV .Q48H [facility] Last Infusion: 01/29/20 03:58 Dose: Infused Documented by: Sodium Chloride () 250 mls @ 15 mls/hr IV .[id number] PRN PRN Reason: Saline Flush Last Infusion: 01/26/20 22:42 Dose: Infused Documented by: Sodium Chloride () 250 mls @ 15 mls/hr IV .[id number] PRN PRN Reason: Additional IVPB Infusion Ibuprofen (Motrin) 600 mg PO Q6H PRN PRN PRN Reason: Pain Score 1-10/10 Last Admin: 01/29/20 10:23 Dose: 600 mg Documented by: Ondansetron HCl (Zofran) 4 mg IV Q6H PRN PRN PRN Reason: NAUSEA/VOMITING Last Admin: 01/26/20 04:43 Dose: 4 mg Documented by: Pantoprazole Sodium (Protonix) 40 mg PO BID [facility] Last Admin: 01/29/20 10:23 Dose: 40 mg Documented by: Prochlorperazine Edisylate (Compazine Iv) 5 - 10 mg IV Q4H PRN PRN PRN Reason: NAUSEA/VOMITING Last Admin: 01/26/20 01:31 Dose: 10 mg Documented by: Promethazine HCl (Phenergan) 12.5 mg IM Q4H PRN PRN PRN Reason: NAUSEA/VOMITING Last Admin: 01/25/20 15:07 Dose: 12.5 mg Documented by: Sodium Chloride () 10 - 40 ml IV UD PRN PRN Reason: SALINE FLUSH Last Admin: 01/28/20 21:10 Dose: 10 ml Documented by: Throat Lozenges (Cepacol Sore Throat Lozenge) 1 lozenge MUCOUS MEM Q2H PRN PRN PRN Reason: SORE THROAT Last Admin: 01/27/20 13:57 Dose: 1 lozenge Documented by: Discharge Diet: Low fat/ Low Cholesterol, 2000 mg Sodium Diet Discharge Activity: Return to Normal Activity Call your doctor if your incision/area has: Continuous Slow Oozing, Sudden Increased Bleeding, Increased Pain/ Swelling, Increased Redness, Foul Smelling Discharge, Swelling at the incision site Call your doctor if you observe: Fever of 101 or Higher, Coldness, Increased Pain, Inability to have a bowel movement, Dizziness Cleanse incision/area with: Keep Dressing Clean & Dry Home Medications: Medications to take at Discharge Baclofen 10 mg PO TID 01/30/17 Gabapentin [Neurontin] 100 mg PO BIDCM 01/30/17 Gabapentin [Neurontin] 300 mg PO QHS 01/30/17 Alendronate Sodium 35 mg PO TOBIAS 06/06/19 Atenolol [Tenormin (beta deuce)] 12.5 mg PO DAILY 06/06/19 Cholecalciferol (Vitamin D3) [Vitamin D3] 2,000 unit PO DAILY 06/06/19 calcium carbonate 500 mg calcium (1,250 mg) chewable tablet 500 mg PO DAILY 10/07/19 Acetaminophen [Tylenol Tablet] 650 mg PO Q4H PRN PRN tab 01/29/20 Ibuprofen [Motrin] 600 mg PO Q6H PRN PRN tab 01/29/20 Pantoprazole Sodium [Protonix] 40 mg PO BID 30 Days #60 tab 01/29/20 Following Prescrptions Were Given to Patient: Pantoprazole Sodium [Protonix] 40 mg PO BID 30 Days #60 tab Transmission Status: Received by [id number] Primary Care Physician: Meghna Gregory DO [Primary Care Provider] - Please follow up with your Primary Care Physician in: within 1-2 weeks Please Follow Up With: Dionte Alva MD When: in 1 week Disposition: Home Minutes spent on discharge:: 45 Patient Condition:: Stable Medical Necessity - Tobacco Use Smoking Status: Never smoker Tobacco Use: Non-smoker Meaningful Use Info Meaningful Use Diagnoses (Choose all that apply): None applicable Inpatient E&M: 32870 Disch Hosp
[2020-01-29 15:20] VITALS: BP 108/68; PULSE 74; RESP 16; TEMP 36.8; O2SAT 98
[2020-01-29 17:02] VITALS: BP 120/70; PULSE 80; RESP 18; TEMP 37.1; O2SAT 97
[2020-01-30 09:45] LABS: Pathologist Review Reviewed
== END 2020-01-29 17:19 | disposition home or self-care (01) | DRG 853 ==
LOC: ED 20:55 → MS3 22:39 → ICU 01-24 11:01 → MS3 01-25 18:02
PROVIDERS: Internal Medicine; Surgery; Admitting Provider Hospitalist; Emergency Provider Emergency Medicine; PCP Internal Medicine; Visit Provider Internal Medicine
PROC: 0DTN0ZZ Resection of Sigmoid Colon, Open Approach (ICD-10-PCS; CPT 44204; principal; 2020-01-24 10:05)
DX: A41.9 Sepsis, unspecified organism (principal); K65.0 Generalized (acute) peritonitis; R65.21 Severe sepsis with septic shock; K57.20 Diverticulitis of large intestine with perforation and abscess without bleeding; K56.7 Ileus, unspecified; K91.89 Other postprocedural complications and disorders of digestive system; E87.6 Hypokalemia; E83.42 Hypomagnesemia; G35 Multiple sclerosis; I10 Essential (primary) hypertension; M81.0 Age-related osteoporosis without current pathological fracture; M19.90 Unspecified osteoarthritis, unspecified site; Z80.0 Family history of malignant neoplasm of digestive organs; Z83.3 Family history of diabetes mellitus; Z98.51 Tubal ligation status; K44.9 Diaphragmatic hernia without obstruction or gangrene; K42.9 Umbilical hernia without obstruction or gangrene; N28.1 Cyst of kidney, acquired; K66.0 Peritoneal adhesions (postprocedural) (postinfection)
CPT/HCPCS: 36415; 74018; 74177; 80048; 80053; 82550; 83605; 83690; 83735; 85025; 85610; 85730; 87040; 87070; 87075; 87077; 87186; 87205; 88304; 88307; 93005; 96361; 96365; 96375; 96376; 97110; 97116; 97163; 97166; 97530; 99284; J7030; J7040; J7050; J7120; Q9967; A4216; C1760; J2405

== ENCOUNTER → 2020-01-31 14:46 | Outpatient (CLI) | payer MEDICARE, OTHER, SELFPAY ==
[2020-01-24 09:29] VITALS: BMI 22.2
--- NOTE | 2020-01-31 14:48 | VDLE_ITS ---
Reason For Study: Edema RIGHT LEFT GSV is normal. GSV is normal. CFV is compressible, spontaneous, phasic, CFV is compressible, spontaneous, phasic, competent and demonstrates normal competent, and demonstrates normal augmentation. augmentation. FV is compressible, spontaneous, phasic, FV is compressible, spontaneous, phasic, competent and demonstrates normal competent and demonstrates normal augmentation. augmentation. POP V is compressible, spontaneous, phasic, POP V is compressible, spontaneous, phasic, competent and demonstrates normal competent and demonstrates normal augmentation. augmentation. T/P Trunk is compressible. T/P Trunk is compressible. PTV is compressible. PTV is compressible. RT PerV is compressible. LT PerV is compressible. Procedure Exam performed in department. A preliminary report was called and/or faxed to [facility]. Interpretation Summary No evidence for acute deep venous thrombosis bilateral lower extremities with patent and compressible bilateral great saphenous veins. Ordering Physician: Meghna Gregory Referring Physician: Meghna Gregory Performed By: Valorie Hastings RVT
== END ==
PROVIDERS: PCP Internal Medicine; Referring Provider Internal Medicine; Visit Provider Internal Medicine
DX: R60.0 Localized edema (principal)
CPT/HCPCS: 93970

== ENCOUNTER → 2020-02-27 08:21 | Outpatient (CLI) | payer MEDICARE, OTHER, SELFPAY ==
[2020-01-24 09:29] VITALS: BMI 22.2
[2020-02-27 08:48] VITALS: BP 113/62; PULSE 90; RESP 16; TEMP 35.9; O2SAT 99; BMI 19.4
[2020-02-27] MEDS: 0.9% NaCl Peripheral Flush Adult/Peds IV ×4 (08:51→10:15)
== END ==
PROVIDERS: PCP Internal Medicine; Referring Provider Internal Medicine; Visit Provider Internal Medicine
DX: R53.83 Other fatigue (principal); I95.81 Postprocedural hypotension
CPT/HCPCS: 96374; 82533; A4216; J0834; J3490

== ENCOUNTER → 2020-03-06 07:58 | Outpatient (CLI) | payer MEDICARE, SELFPAY ==
[2019-10-24 14:47] VITALS: BMI 19.2
[2020-02-27 08:48] VITALS: BMI 19.4
--- NOTE | 2020-03-06 08:18 | BI_ITS ---
MAMMOGRAPHY - BILATERAL SCREENING REASON FOR EXAM: Female, 65 years old. Routine annual screening examination. PERTINENT HISTORY: Non-contributory. TECHNIQUE: Digital bilateral breast marciano (3D mammographic acquisition) in the CC and MLO projections. 2-D mediolateral oblique (MLO) and craniocaudad (CC) views of both breasts were obtained. CAD: Full Field Digital Mammography with Computer Added Detection was performed. COMPARISON: Comparison is made with prior examination of February 07, 2019 and February 06, 2018. FINDINGS: Breast Composition: The breasts are heterogeneously dense, which may obscure small masses. There are no dominant masses or suspicious calcifications. Stable scattered macrocalcifications. No other significant abnormalities are identified. There has been no significant change since the prior study. BI/SCREEN MAMM (CAD) W/MARCIANO BILAT IMPRESSION: Stable bilateral screening mammogram. Yearly follow-up mammogram recommended. (A) ASSESSMENT CATEGORY: BIRADS Category 2: Benign. A letter regarding these results will be sent to the patient by the facility within 30 days. Approximately 10% of breast cancers are not detected by mammography. A normal mammogram should not delay biopsy of a clinically suspicious abnormality. [id number] Electronically Signed: Antoine Recinos, at 9:08 EDT , Service support ,
== END ==
PROVIDERS: PCP Internal Medicine; Referring Provider Internal Medicine; Visit Provider Internal Medicine
DX: Z12.31 Encounter for screening mammogram for malignant neoplasm of breast (principal)
CPT/HCPCS: 77063; 77067

== ENCOUNTER 2020-05-12 06:48 | Day surgery (SDC) | payer MEDICARE, SELFPAY ==
[2020-02-27 08:48] VITALS: BMI 19.4
[2020-05-12] VITALS (7 sets, daily range): BP systolic 93–107; BP diastolic 59–86; PULSE 78–101; RESP 16; TEMP 36.3–36.9; O2SAT 100; BMI 19.3
--- NOTE | 2020-05-12 | COLBX_PTH ---
PATIENT: STANTON BLEVINS LOC: EN U#:[id number] AGE/SX: 65/F ROOM: RE05/12/[address]: Dr. Dionte Alva MD : 1955 BED: DIS: 05/12/2020 SPEC #: [id number] RECD: 05/12/20 09:36 STATUS: MICHEAL NINA #: [id number] EMILIE: 05/12/20 00:[address]: Dionte Alva DEPT: SURGICAL PATHOLOGY RECD BY: Jake Garcia ENTERED: 05/12/20 09:37 SP TYPE: COLON BX OTHR DR: Dr. Meghna Gregory, DO Tissues: Rectum, NOS Procedures: Surgery Specimen Level IV HEADER OPERATION: Colonoscopy (MAC) PRE-OP DIAGNOSIS: Screening TISSUE SUBMITTED: Rectal polyps (2) MICROSCOPIC DIAGNOSIS Rectal polyps x2, biopsy: Fragments of tubular adenoma. YADIRA:mckenna 05/13/20 MICROSCOPIC DESCRIPTION Slides are reviewed. GROSS DESCRIPTION Received in fixative is one container labeled with the patient's name and designated rectal polyps. The specimen consists of three pieces of ramirez-pink polyp measuring 0.6, 0.7 and 1 cm in greatest dimension. The largest polyp is bisected. The entire specimen is submitted in one cassette. / SJ:rg 05/12/20 TC:1 CPT: 89357
--- NOTE | 2020-05-12 07:27 | H&P.OPEN ---
History of Present Illness Date of Admission: 05/12/20 The patient is a 65 year old F who had perforated diverticulitis which required laparoscopic sigmoid colectomy. The patient followed up in January and was doing well at that time. She was recommended to have a colonoscopy 3 years after her initial one which was 5 to 6 years ago due to polyps. I recommended performing this 2 months after follow-up which would be around now. Patient is not having any complaints. She says she is tolerating diet with no abdominal pain and no blood in her stool. Past Medical/Surgical History - Planned Operation Planned Operative Procedure/s: COLONOSCOPY Date of Operative Procedure: 05/12/20 Permit Signed: Yes S.O.S: No Is This Patient Having a Total Joint: No - Previous Hospitalizations/Surgeries HX Hospitalizations: No HX of Surgeries: appendectomy, tonsillectomy. 09/19-diverticulitis. COLECTOMY 01/25/20 Any Problems With Anesthesia: Yes - NAUSEA You/Your Family Experience Fever (Hyperthermia) With Anes: No Cholinesterase deficiency: No - Cardiovascular Hx Chest Pain within Last 2 months: No Hx of Irregular Heartbeat and/or Afib: No Hx Heart Attack: No Hx Congestive Heart Failure: No Hx Rheumatic Fever: No Hx Hypertension: No Hx Internal Defibrillator: No Hx Pacemaker: No Hx Cardiac Catheterization: No Hx Cardiac Surgery/Stents/Etc.: No Hx Stress Test: No HX Edema: No Hx Pain in Legs when Walking/Leg Cramps: No - Respiratory Chronic Cough: No HX of Shortness of Breath: No Hoarseness: No Hx Chronic Obstructive Pulmonary Disease (COPD): No Hx Asthma: No Hx Emphysema: No Hx Sleep Apnea: No CPAP: No BIPAP: No Hx Oxygen Use at Home: No Hx Respiratory Tract Infection/Cold (presently): No Do You Snore Loudly (louder than talking or can be heard): No Do You Often Feel Tired/ Fatigued/ Sleepy Dring Daytime?: No Has Anyone Observed You Stop Breathing During Sleep?: No Result (for STOP score): Negative Hx Smoking: No Smoking Status: Never smoker - Gastrointestinal Hx Gastroesophageal Reflux: No Controlled With Meds: No Hx Gastrointestinal Disorders: Yes - DIVERTICULITIS Hx Gastrointestinal Bleed: No Hx Ulcer: No Hx Hiatal Hernia: No Difficulty Chewing/Swallowing: No Recent Onset of Swallowing Problems: No Special diet followed at home: No Hx Unplanned Weight Loss of 20#: No HX Unplanned Weight Gain of 20#: No - Neurological Hx Seizures: No HX Syncope/Blackout Spells/Unconsciousness: No Hx CVA/Stroke: No Hx Transient Ischemic Attacks (TIA): No Hx Multiple Sclerosis: Yes Hx Parkinson's Disease: No Hx Head/Neck Injury: Yes - arthritis in neck Hx Headaches: No Hx Back Injury/Pain: Yes Recent Onset of Speech Difficulty: No Restless Legs: No Does patient have nerve stimulator: No - Blood Disorder Hx Leukemia: No Bleeding Tendencies: No Hx Deep Vein Thrombosis: No Hx High Cholesterol: No Blood Transmitted Disease: No Hx Hepatitis: No Hx Cirrhosis: No Hx Anemia: No Hx Blood Disorders: No - Reproduction : No Is Patient Lactating: No Hx Hysterectomy: No Hx Tubal Ligation: Yes Are You Post Menopause: No - Genitourinary Hx Renal Disease: No Hx Dialysis: No - Musculoskeletal Hx Arthritis: Yes - c-spine per pt. report Hx Rheumatoid Arthritis: No Hx Gout: No Recent Onset of an Orthopedic Problem: No - Endocrine Hx Diabetes: No Insulin: No Thyroid Disease: No Hx Steroid Therapy: Yes - PREDNISONE FOR POISON DEMARCUS - Psycho/Social Hx Substance Use: No Hx Alcohol Use: No Hx Anxiety: No Hx Depression: No Mental Illness: No Hx Dementia: No - Miscellaneous Hx Cancer: No Recent Exposure to Contagious Disease: No Active MRSA: No Hx of C-Diff: No Any Loose Teeth: No Allergies Sulfa (Sulfonamide Antibiotics) Allergy (Intermediate, Verified 05/12/20 07:11) Hives - Discharge Is Pt Admitted From a Prison, or a Halfway: No Who Could Help: After D/C, Where Do you Plan to Go: Return Home - From the PAT History Number of Risk Factors: 2 - Physical Exam Vitals/I&O's: Vital Signs Temp Pulse Resp BP Pulse Ox 98.5 F 101 H 16 103/82 H 100 05/12/20 07:16 05/12/20 07:16 05/12/20 07:16 05/12/20 07:16 05/12/20 07:16 Oxygen Delivery Method Room Air Weight: 95 lb 10.89 oz Body Mass Index (BMI) 19.3 General: Alert, Oriented x3 Lungs: Normal air movement Cardiovascular: Regular rate, Regular Rhythm Abdomen: Soft, Non Tender, Non-Distended Assessment/Plan All Active Problems (Last Reviewed 02/05/20 @ 08:41 by Marni Thompson) Acute diverticulitis (Acute) Sepsis (Acute) Sinus tachycardia by electrocardiogram (Acute) Sepsis (Acute) Peritonitis (Acute) Peritonitis (acute) generalized (Acute) 65-year-old female with history of colon polyps 1. Recommend colonoscopy to evaluate the colon for polyps and to evaluate anastomosis. 2. I explained endoscopy in detail to the patient. I explained the risks including but not limited to stroke or heart attack with anesthesia, perforation of the GI tract, bleeding, infection. I explained that any of these could necessitate further emergency surgery. The patient understands and all questions were answered sufficiently. The patient wishes to proceed with procedure. 3. We discussed the current risks associated with COVID-19. While it is understood that there is a community spread of COVID-19, the risk of brock COVID-19 while at [facility] ([facility]) is very low; however, the risk cannot be completely mitigated because of the community spread of the disease. We discussed in detail the risk of exposure to and/or potential harm posed by the COVID-19 virus with having a surgery/procedure at this time versus the risk of delaying the surgery/procedure. It is not possible to know either the risk of delaying the surgery or procedure or chance of getting an infection with perfect accuracy, but a joint decision was made to proceed at this time with the scheduled surgery/procedure as indicated on the consent form. Patient was notified that we will need to comply with any screening or testing [facility] wishes to perform or that surgery may be delayed for any positive results. Dionte Alva MD Pager: [facility] [address] [place] [address], [address] [place] [address] Office: Surgery Risks - Colonoscopy Risks Include but are not Limited To: Risks include but are not limited to: Bleeding, perforation requiring further surgery, inability to complete colonoscopy requiring barium enema.
[2020-05-12] MEDS: Lactated Ringers 1,000 ML 100 ML IV (07:32)
--- NOTE | 2020-05-12 09:03 | OP.COLON_ITS ---
Patient Name: Monse Artis Procedure Date: 05/12/2020 7:21 AM Date of : 1955 Age: 65 Procedure: Colonoscopy Indications: Surveillance: Personal history of adenomatous polyps on last colonoscopy 5 years ago Providers: Dionte Alva MD Referring MD: Meghan Gregory Medicines: Monitored Anesthesia Care Patient Profile: This is a 65 year old female. Refer to note in patient chart for documentation of history and physical. Last Colonoscopy: 5 years ago. Complications: No immediate complications. Estimated blood loss: Minimal. Procedure: Pre-Anesthesia Assessment: - Prior to the procedure, a History and Physical was performed, and patient medications and allergies were reviewed. The patient's tolerance of previous anesthesia was also reviewed. The risks and benefits of the procedure and the sedation options and risks were discussed with the patient. All questions were answered, and informed consent was obtained. Prior Anticoagulants: The patient has taken no previous anticoagulant or antiplatelet agents. After reviewing the risks and benefits, the patient was deemed in satisfactory condition to undergo the procedure. After I obtained informed consent, the scope was passed under direct vision. Throughout the procedure, the patient's blood pressure, pulse, and oxygen saturations were monitored continuously. The Colonoscope was introduced through the anus and advanced to the cecum, identified by appendiceal orifice and ileocecal valve. The colonoscopy was performed without difficulty. The patient tolerated the procedure well. The quality of the bowel preparation was good. Scope In: 7:53:41 AM Scope Withdrawal Time 0 hours 9 minutes 46 seconds Scope Out: 8:07:26 AM Total Procedure Duration Time 0 hours 13 minutes 45 seconds Findings: Two semi-pedunculated polyps were found in the rectum. The polyps were medium in size. These polyps were removed with a hot snare. Resection and retrieval were complete. Verification of patient identification for the specimen was done. Estimated blood loss was minimal. The exam was otherwise without abnormality on direct and retroflexion views. Impression: - Two medium polyps in the rectum, removed with a hot snare. Resected and retrieved. - The examination was otherwise normal on direct and retroflexion views. Recommendation: - Discharge patient to home. - Resume previous diet. - Continue present medications. - Await pathology results. - Repeat colonoscopy in 3 years for surveillance of multiple polyps. Procedure Code(s): --- Professional --- 86487, Colonoscopy, flexible; with removal of tumor(s), polyp(s), or other lesion(s) by snare technique Diagnosis Code(s): --- Professional --- Z86.010, Personal history of colonic polyps K62.1, Rectal polyp CPT copyright 2017 [employer]. All rights reserved. The codes documented in this report are preliminary and upon diabetes educator review may be revised to meet current compliance requirements. Dionte Alva MD 05/12/2020 9:02:44 AM This report has been signed electronically. Number of Addenda: 0 Note Initiated On: 05/12/2020 7:21 AM
--- NOTE | 2020-05-12 09:03 | OP.CCLET_ITS ---
05/12/2020 Meghna Gregory [address] [place] [address] Re : Colonoscopy procedure for Monse Cookclaudy Dear Dr. Gregory This procedure was performed on Tuesday, May 12, 2020. My impressions and recommendations are as follows: Impressions : - Two medium polyps in the rectum, removed with a hot snare. Resected and retrieved. - The examination was otherwise normal on direct and retroflexion views. Recommendations : - Discharge patient to home. - Resume previous diet. - Continue present medications. - Await pathology results. - Repeat colonoscopy in 3 years for surveillance of multiple polyps. My findings are described in the full procedure note, which is enclosed. If I can be of further assistance, please feel free to contact me at Doctor phone number(s): , Work: . Sincerely, Dionte Alva MD 05/12/2020 9:02:44 AM This report has been signed electronically.
== END 2020-05-12 09:10 | disposition home or self-care (01) ==
LOC: EN 06:49 → AC 06:50
PROVIDERS: Anesthesiology; PCP Internal Medicine; Referring Provider Internal Medicine; Visit Provider Surgery
PROC: 0DJD8ZZ Inspection of Lower Intestinal Tract, Via Natural or Artificial Opening Endoscopic (ICD-10-PCS; CPT 45378; principal; 2020-05-12 07:55)
DX: K62.1 Rectal polyp (principal); Z86.010 Personal history of colon polyps; Z87.19 Personal history of other diseases of the digestive system; Z88.2 Allergy status to sulfonamides
CPT/HCPCS: 45385; 87635; 88305; 94799; J7120; U0003

== ENCOUNTER → 2020-05-26 08:54 | Outpatient (CLI) | payer MEDICARE, SELFPAY ==
[2020-05-12 07:16] VITALS: BMI 19.3
--- NOTE | 2020-05-26 08:59 | US_ITS ---
STUDY: THYROID ULTRASOUND REASON FOR EXAM: Female, 65 years old. Thyroid nodules TECHNIQUE: Ultrasound evaluation of the thyroid was performed with real-time and static santana-scale imaging. COMPARISON: Comparison is made with prior study dated 02/07/2019. FINDINGS: RIGHT LOBE: The right lobe of the thyroid gland measures 4.7 cm x 1 cm x 1.2 cm. There is a homogeneous echotexture. Once again, 2 complex solid/cystic nodule is seen in the upper pole. The larger measures 9 mm x 6 mm x 5 mm. Minimal extra nodular vascularity. LEFT LOBE: The left lobe of the thyroid gland measures 4 cm x 0.8 cm x 0.6 cm. There is a homogeneous echotexture. There are no demonstrated solid, cystic or complex lesions. ISTHMUS: The isthmus measures 2.0 mm. The regional lymph nodes are normal. US/Thyroid IMPRESSION: Stable examination demonstrating 2 subcentimeter nodules in the right lobe. Electronically Signed: Antoine Recinos, at 12:39 EDT , Service support ,
== END ==
PROVIDERS: PCP Internal Medicine; Referring Provider Internal Medicine; Visit Provider Internal Medicine
DX: E04.1 Nontoxic single thyroid nodule (principal)
CPT/HCPCS: 76536

== ENCOUNTER → 2020-06-01 09:36 | Outpatient (CLI) | payer MEDICARE, SELFPAY ==
[2020-05-12 07:16] VITALS: BMI 19.3
[2020-06-01 12:13] LABS: Ferritin 9 ng/mL (8-252)
[2020-06-02 04:46] LABS: Thyroid Peroxidase AB < 9 IU/mL (0-34)
[2020-06-03 17:25] LABS: Anti-Nuclear Antibody Test Negative (.)
== END ==
PROVIDERS: PCP Internal Medicine; Referring Provider Dermatology Pediatric Dermatology; Visit Provider Dermatology Pediatric Dermatology
DX: L65.0 Telogen effluvium (principal)
CPT/HCPCS: 36415; 82728; 86038; 86376

== ENCOUNTER → 2020-06-05 08:23 | Outpatient (CLI) | payer MEDICARE, SELFPAY ==
[2019-12-05 08:31] VITALS: BMI 19.1
[2020-05-12 07:16] VITALS: BMI 19.3
[2020-06-05 08:30] VITALS: BP 108/78; PULSE 92; RESP 16; TEMP 36.3; O2SAT 100; BMI 19.8
[2020-06-05] MEDS: Acetaminophen 500 MG Tablet 1000 MG PO (08:40)
[2020-06-05] MEDS: MethylPREDNISolone 125 MG/2 ML Vial 100 MG IV (08:41)
[2020-06-05] MEDS: DiphenhydrAMINE 50 MG/ML Syringe 25 MG IV (08:41)
[2020-06-05] MEDS: Ocrelizumab 600mg Infusion 40 MG IV (08:56)
== END ==
LOC: MEDOUTP 08:24
PROVIDERS: PCP Internal Medicine; Referring Provider Psychiatry & Neurology Neurology; Visit Provider Psychiatry & Neurology Neurology
DX: G35 Multiple sclerosis (principal)
CPT/HCPCS: 96365; 96366 ×2; 96375 ×2; J7040; J7050; A4216; J2350

== ENCOUNTER → 2020-09-14 09:43 | Outpatient (CLI) | payer MEDICARE, SELFPAY ==
[2019-12-05 08:31] VITALS: BMI 19.1
--- NOTE | 2020-09-14 09:49 | ECHOCS_ITS ---
Reason For Study: PHTN Procedure This was a 2D Doppler, Color Flow transthoracic echocardiogram. The study was technically difficult. Contrast injection was performed. Exam performed in department. Left Ventricle Normal LV size. The estimated ejection fraction is 60 %. No evidence for diastolic dysfunction. No regional wall motion abnormalities noted. Right Ventricle Normal RV size. Normal systolic function. Atria Normal left atrium. Normal right atrium. No doppler evidence for ASD. Mitral Valve There is no mitral valve stenosis. Trivial mitral valve insufficiency. Tricuspid Valve There is no tricuspid stenosis. Trivial tricuspid valve insufficiency. Pulmonary artery systolic pressure is 25 mmHg. Aortic Valve Trisinus/trileaflet aortic valve. There is no aortic stenosis. No aortic valve insufficiency. Pulmonic Valve There is no pulmonic valvular stenosis. No pulmonic valve insufficiency. Great Vessels Normal aortic root. Pericardium/Pleural No pericardial effusion. Medication 22 gauge I.V. with prn adaptor inserted into right arm. Diluted definity 2ml given slow IV push to enhance endocardial definition. MMode/2D Measurements & Calculations LVIDd: 3.4 cm IVSd: 0.79 cm Ao root diam: 3.5 cm LVIDs: 1.9 cm LVPWd: 0.92 cm LA dimension: 2.4 cm RVDd: 3.1 cm FS: 43.7 % LAV(MOD-bp): 20.0 ml LA A4 area: 10.4 cm2 RA A4 area: 9.1 cm2 LAV(MOD-bp) Indexed: 14.6 ml/m2 LAV(MOD-sp2): 17.6 ml LAV(MOD-sp4): 22.7 ml Time Measurements MV dec time: 0.20 sec Doppler Measurements & Calculations MV E max danny: 71.2 cm/sec Lat Peak E' Danny: 8.5 cm/sec Med Peak E' Danny: 7.3 cm/sec MV A max danny: 93.8 cm/sec E/E' lat: 8.4 E/E' med: 9.8 MV E/A: 0.76 MV V2 max: 91.2 cm/sec MV P1/2t max danny: 66.0 cm/sec Ao V2 max: 95.1 cm/sec MV max P.3 mmHg MV P1/2t: 67.4 msec Ao max P.6 mmHg MV V2 mean: 43.8 cm/sec MV dec slope: 286.7 cm/sec2 MV mean P.91 mmHg MV V2 VTI: 23.1 cm MVA(P1/2t): 3.3 cm2 LV V1 max: 84.7 cm/sec PA V2 max: 62.1 cm/sec TR max danny: 233.4 cm/sec LV V1 max P.9 mmHg TR max P.8 mmHg Interpretation Summary The estimated ejection fraction is 60 %. No evidence for diastolic dysfunction. Trivial mitral valve insufficiency. Trivial tricuspid valve insufficiency. Ordering Physician: Huseyin Mott Referring Physician: Meghna Gregory M.D. Performed By: Haile Pierson RCS
== END ==
PROVIDERS: PCP Internal Medicine; Referring Provider Internal Medicine Pulmonary Disease; Visit Provider Internal Medicine Pulmonary Disease
DX: I27.20 Pulmonary hypertension, unspecified (principal)
CPT/HCPCS: 93306; Q9957; A4216; C8929

== ENCOUNTER → 2020-12-16 08:22 | Outpatient (CLI) | payer MEDICARE, SELFPAY ==
[2020-05-12 07:16] VITALS: BMI 19.3
[2020-12-16 08:33] VITALS: BP 99/58; PULSE 91; RESP 16; TEMP 36.1; O2SAT 98
[2020-12-16] MEDS: 0.9% NaCl IVPB Med Flush (250 mL) 15 ML IV (08:47)
[2020-12-16] MEDS: Acetaminophen 500 MG Tablet 1000 MG PO (08:47)
[2020-12-16] MEDS: 0.9% NaCl Peripheral Flush Adult/Peds IV (08:47)
[2020-12-16] MEDS: MethylPREDNISolone 125 MG/2 ML Vial 100 MG IV (08:48)
[2020-12-16] MEDS: DiphenhydrAMINE 50 MG/ML Syringe 25 MG IV (08:52)
[2020-12-16] MEDS: Ocrelizumab 600mg Infusion 40 MG IV (09:18)
== END ==
PROVIDERS: PCP Internal Medicine; Referring Provider Psychiatry & Neurology Neurology; Visit Provider Psychiatry & Neurology Neurology
DX: G35 Multiple sclerosis (principal)
CPT/HCPCS: 96365; 96366 ×2; 96375 ×2; J7040; J7050; A4216; J2350

== ENCOUNTER → 2021-03-30 07:44 | Outpatient (CLI) | payer MEDICARE, SELFPAY ==
--- NOTE | 2021-03-30 08:01 | BI_ITS ---
MAMMOGRAPHY - BILATERAL SCREENING REASON FOR EXAM: Female, 66 years old. Routine annual screening examination. PERTINENT HISTORY: Non-contributory. TECHNIQUE: Digital bilateral breast marciano (3D mammographic acquisition) in the CC and MLO projections. 2-D mediolateral oblique (MLO) and craniocaudad (CC) views of both breasts were obtained. CAD: Full Field Digital Mammography with Computer Added Detection was performed. COMPARISON: Comparison is made with prior study dated 03/06/2020 and 02/07/2019. FINDINGS: Breast Composition: The breasts are heterogeneously dense, which may obscure small masses. There are no dominant masses or suspicious calcifications. No other significant abnormalities are identified. There has been no significant change since the prior study. BI/SCRN MAMM (CAD)W/MARCIANO BILAT IMPRESSION: Stable bilateral screening mammogram. Yearly follow-up mammogram recommended. (A) ASSESSMENT CATEGORY: BIRADS Category 1: Negative. A letter regarding these results will be sent to the patient by the facility within 30 days. Approximately 10% of breast cancers are not detected by mammography. A normal mammogram should not delay biopsy of a clinically suspicious abnormality. [id number] Electronically Signed: Antoine Recinos MD at 8:53 EDT , Service support ,
--- NOTE | 2021-03-30 08:21 | BD_ITS ---
STUDY: DUAL ENERGY X-RAY ABSORPTIOMETRY / DXA REASON FOR EXAM: Female, 66 years old. [id number]. Patient is postmenopausal. Loss of height. TECHNIQUE: Bone Mineral Density (BMD) measurements of lumbar spine and bilateral hips were obtained. COMPARISON: Comparison is made with prior examination dated 02/06/2018. FINDINGS: Lumbar Spine (L1-L4): g/cm2 (0.991) / T-score (-1.6) / Z-score (0.0) Findings are suggestive of osteopenia with a moderate fracture risk. Increased kyphosis. Left Femur Total: g/cm2 (0.821) / T-score (-1.5) / Z-score (-0.2) Left Femoral Neck: g/cm2 (0.797) / T-score (-1.7) / Z-score (-0.2) Right Femur Total: g/cm2 (0.761) / T-score (-2.0) / Z-score (-0.7) Right Femoral Neck: g/cm2 (0.804) / T-score (-1.7) / Z-score (-0.2) The T-Scores on the most recent prior examination were: Lumbar Spine (L1-L4): There has been improvement of bone density since the previous examination. Left Femur Total: which represents an improvement of 55%. Right Femur Total: which represents no significant change. . BD/Dexa Bone Density Study IMPRESSION: The patient is considered osteopenic as outlined below according to World Jet Organization (WHO) criteria with a moderate fracture risk. There has been improvement of bone density since the previous examination. Reference Information: The T-score is the number of standard deviations above or below the standard which is normal for young adults at their peak bone mineral density. The World Health Organization (WHO) interprets the T-scores as follows: Above -1 Normal bone density Between -1 and -2.5 Osteopenia Equal to / or below -2.5 Osteoporosis As a practical clinical guideline, osteopenia may be graded as follows: Mild -1 through -1.5 Moderate -1.6 through -2.0 Severe -2.1 through -2.4 The Z-score is the number of standard deviations above or below age-matched controls. A Z-score of less than -1.5 would be considered abnormal. References: 1. NIH Osteoporosis and Related Bone Diseases www osteo.org 2. International Society for Clinical Densitometry www iscd.org 3. National Osteoporosis Foundation www nof.org Electronically Signed: Antoine Recinos MD at 13:03 EDT , Service support ,
== END ==
PROVIDERS: PCP Internal Medicine; Referring Provider Internal Medicine; Visit Provider Internal Medicine
DX: Z12.31 Encounter for screening mammogram for malignant neoplasm of breast (principal); Z78.0 Asymptomatic menopausal state
CPT/HCPCS: 77063; 77067; 77080

== ENCOUNTER → 2021-07-02 08:26 | Outpatient (CLI) | payer MEDICARE, SELFPAY ==
[2021-07-02 08:32] VITALS: BP 103/48; PULSE 93; RESP 16; TEMP 36.3; O2SAT 99
[2021-07-02] MEDS: 0.9% NaCl Peripheral Flush Adult/Peds IV (08:36)
[2021-07-02] MEDS: Acetaminophen 500 MG Tablet 1000 MG PO (08:53)
[2021-07-02] MEDS: 0.9% NaCl IVPB Med Flush (250 mL) 15 ML IV (08:54)
[2021-07-02] MEDS: DiphenhydrAMINE 50 MG/ML Syringe 25 MG IV (08:56)
[2021-07-02] MEDS: MethylPREDNISolone 125 MG/2 ML Vial 100 MG IV (08:59)
[2021-07-02] MEDS: Ocrelizumab 600mg Infusion 40 MG IV (09:32)
[2021-07-02 14:32] VITALS: BP 105/50; PULSE 103; RESP 16; TEMP 36.2; O2SAT 98
== END ==
PROVIDERS: PCP Internal Medicine; Referring Provider Psychiatry & Neurology Neurology; Visit Provider Psychiatry & Neurology Neurology
DX: G35 Multiple sclerosis (principal)
CPT/HCPCS: 96365; 96366 ×5; J7040; J7050; A4216; J2350

== ENCOUNTER 2021-10-26 13:18 | Outpatient (CLI) | payer MEDICARE, SELFPAY | END 2021-10-26 23:59 | disposition short-term general hospital (02) | LOC: LABSPEC 13:19 | PROVIDERS: PCP Internal Medicine; Visit Provider Physician Assistant Surgical | DX: U07.1 COVID-19 (principal) | CPT/HCPCS: 87635; U0003; U0005 ==

== ENCOUNTER → 2021-11-29 | Outpatient (CLI) | payer MEDICARE, SELFPAY ==
[2021-11-29 12:14] LABS: Absolute Lymphocyte Count 1.96 X10^3/uL (0.83-4.51); Absolute Neutrophil Count 5.1 X10^3/uL (2.0-7.7); Basophil# 0.05 X10^3/uL; Basophil% 0.6 % (0-1); Eosinophil# 0.21 X10^3/uL; Eosinophils% 2.7 % (0-5); Hematocrit 40.7 % (37-47); Hemoglobin 12.8 g/dL (12.0-15.0); Lymphocyte # 1.96 X10^3/ul (0.83-4.51); Lymphocyte % 24.7 % (19-41); Mean Corp Hgb Conc 31.4 g/dL (32-36); Mean Corpuscular Hgb 30.3 pg (27.0-32.0); Mean Corpuscular Volume 96.4 fL (81-99); Mean Platelet Vol. 8.7 fl (6.2-12.0); Monocyte# 0.63 X10^3/uL; NRBC Flagged by Analyzer 0 % (0-5); Neutrophil # 5.05 X10^3/uL (2.7-7.7); Neutrophil % 63.7 % (47-70); Platelet Count 438 K/mm3 (150-450); RBC Distribution Width CV 13.2 % (11.6-14.6); RBC Distribution Width SD 46.5 fl (35.1-43.9); Red Blood Count 4.22 M/mm3 (4.2-5.4); White Blood Count 7.9 K/mm3 (4.4-11.0)
[2021-11-29 12:39] LABS: ALB/GLOB Ratio 1.1 RATIO (0.9-2.4); AST(SGOT) 25 U/L (15-37); Alanine Aminotransfer ALT/SGPT 28 U/L (13-56); Albumin, Serum 3.6 g/dL (3.2-5.0); Alkaline Phosphatase 72 U/L (45-117); Anion Gap 4 (5-15); BUN 12 mg/dL (7-18); BUN/Creat Ratio 12.5 RATIO (10-20); Calcium,Total 9.4 mg/dL (8.5-10.1); Chloride 107 mmol/L (98-107); Creatinine, Serum 0.96 mg/dL (0.55-1.02); EST Glomerular Filtration Rate 62 mL/min (>60); Est Glom Filt Rate - Afr Amer 75 mL/min (>60); Globulin 3.3 g/dL (2.2-4.2); Glucose 136 mg/dL (74-106); Potassium 4.2 mmol/L (3.5-5.1); Protein, Total 6.9 g/dL (6.4-8.2); Sodium Level 139 mmol/L (136-145)
== END | disposition home or self-care (01) ==
LOC: MTLAB 10:37
PROVIDERS: PCP Internal Medicine
DX: G35 Multiple sclerosis (principal)
CPT/HCPCS: 36415; 80053; 85025

== ENCOUNTER → 2021-12-31 08:20 | Outpatient (CLI) | payer MEDICARE, SELFPAY ==
[2021-12-31 08:28] VITALS: BP 105/44; PULSE 89; RESP 16; TEMP 36.1; O2SAT 99; BMI 19.9
[2021-12-31] MEDS: Acetaminophen 500 MG Tablet 1000 MG PO (08:46)
[2021-12-31] MEDS: MethylPREDNISolone 125 MG/2 ML Vial 100 MG IV (08:46)
[2021-12-31] MEDS: DiphenhydrAMINE 50 MG/ML Syringe 25 MG IV (08:47)
[2021-12-31] MEDS: Ocrelizumab 600mg Infusion 40 MG IV (09:20)
[2021-12-31 14:24] VITALS: BP 105/46; PULSE 94; RESP 16; TEMP 36.6; O2SAT 98
== END ==
PROVIDERS: PCP Internal Medicine
DX: G35 Multiple sclerosis (principal)
CPT/HCPCS: 96365; 96366 ×3; J7040; A4216; J2350

== ENCOUNTER → 2022-03-12 | Outpatient (CLI) | payer MEDICARE, SELFPAY ==
--- NOTE | 2022-03-12 09:02 | US_ITS ---
STUDY: THYROID ULTRASOUND REASON FOR EXAM: Female, 67 years old. NODULES TECHNIQUE: Ultrasound evaluation of the thyroid was performed with real-time and static santana-scale imaging. COMPARISON: 05/26/2020 FINDINGS: RIGHT LOBE: The right lobe of the thyroid gland measures 4.9 x 1.1 x 1.1 cm. There is a homogeneous echotexture. Nodule 1: Enlarging (5 x 5 x 9 mm to 6 x 7 x 11 mm) mixed cystic and solid hypoechoic wider than tall smoothly marginated nodule with no echogenic foci (TR 3) in the lateral right lobe consistent with an adenoma. Mm LEFT LOBE: The left lobe of the thyroid gland measures 3.9 x 0.7 x 0.7 cm. There is a homogeneous echotexture. There are no demonstrated solid, cystic or complex lesions. ISTHMUS: The isthmus measures 2 mm thick. . The regional lymph nodes are normal. US/Thyroid IMPRESSION: Enlarging partially cystic adenoma the right lobe. Electronically Signed: Andrew Walker MD at 17:52 EDT ,
== END | disposition home or self-care (01) ==
PROVIDERS: PCP Internal Medicine; Visit Provider Internal Medicine
DX: E04.1 Nontoxic single thyroid nodule (principal)
CPT/HCPCS: 76536

== ENCOUNTER → 2022-03-31 | Outpatient (CLI) | payer MEDICARE, SELFPAY ==
--- NOTE | 2022-03-31 07:44 | BI_ITS ---
MAMMOGRAPHY - BILATERAL SCREENING REASON FOR EXAM: Female, 67 years old. Routine annual screening examination. PERTINENT HISTORY: Non-contributory. TECHNIQUE: Digital bilateral breast marciano (3D mammographic acquisition) in the CC and MLO projections. 2-D mediolateral oblique (MLO) and craniocaudad (CC) views of both breasts were obtained. CAD: Full Field Digital Mammography with Computer Added Detection was performed. COMPARISON: Comparison is made with prior study dated 03/30/2021 and 03/06/2020. FINDINGS: Breast Composition: The breasts are heterogeneously dense, which may obscure small masses. There are no dominant masses or suspicious calcifications. Stable small benign-appearing bilateral axillary No other significant abnormalities are identified. There has been no significant change since the prior study. BI/SCRN MAMM (CAD)W/MARCIANO BILAT IMPRESSION: Stable bilateral screening mammogram. Yearly follow-up mammogram recommended. (A) ASSESSMENT CATEGORY: BIRADS Category 2: Benign. A letter regarding these results will be sent to the patient by the facility within 30 days. Approximately 10% of breast cancers are not detected by mammography. A normal mammogram should not delay biopsy of a clinically suspicious abnormality. [id number] Electronically Signed: Antoine Recinos MD at 8:25 EDT ,
== END | disposition home or self-care (01) ==
LOC: OPBI 07:42
PROVIDERS: PCP Internal Medicine; Visit Provider Nurse Practitioner Women's Health
DX: Z12.31 Encounter for screening mammogram for malignant neoplasm of breast (principal)
CPT/HCPCS: 77063; 77067

== ENCOUNTER → 2022-07-15 | Outpatient (CLI) | payer MEDICARE, SELFPAY ==
[2022-07-15 08:26] VITALS: BP 92/49; PULSE 90; RESP 16; TEMP 36.6; O2SAT 100; BMI 20.1
[2022-07-15] MEDS: 0.9% NaCl Peripheral Flush Adult/Peds IV (08:33)
[2022-07-15 08:46] LABS: Absolute Lymphocyte Count 1.88 X10^3/uL (0.83-4.51); Absolute Neutrophil Count 4.2 X10^3/uL (2.0-7.7); Basophil# 0.07 X10^3/uL; Eosinophil# 0.21 X10^3/uL; Hematocrit 43.5 % (37-47); Hemoglobin 13.9 g/dL (12.0-15.0); Lymphocyte # 1.88 X10^3/ul (0.83-4.51); Lymphocyte % 26.4 % (19-41); Mean Corpuscular Hgb 30.1 pg (27.0-32.0); Mean Corpuscular Volume 94.2 fL (81-99); Mean Platelet Vol. 8.5 fl (6.2-12.0); Monocyte# 0.69 X10^3/uL; Monocyte% 9.7 % (0-10); NRBC Flagged by Analyzer 0 % (0-5); Neutrophil # 4.24 X10^3/uL (2.7-7.7); Neutrophil % 59.6 % (47-70); Platelet Count 419 K/mm3 (150-450); RBC Distribution Width CV 12.7 % (11.6-14.6); RBC Distribution Width SD 43.9 fl (35.1-43.9); Red Blood Count 4.62 M/mm3 (4.2-5.4); White Blood Count 7.1 K/mm3 (4.4-11.0)
[2022-07-15] MEDS: 0.9% NaCl IVPB Med Flush (250 mL) 15 ML IV (08:46)
[2022-07-15] MEDS: DiphenhydrAMINE 50 MG/ML Syringe 25 MG IV (08:46)
[2022-07-15] MEDS: Acetaminophen 500 MG Tablet 1000 MG PO (08:46)
[2022-07-15] MEDS: MethylPREDNISolone 125 MG/2 ML Vial 100 MG IV (08:55)
[2022-07-15 09:19] LABS: ALB/GLOB Ratio 1.1 RATIO (0.9-2.4); AST(SGOT) 23 U/L (15-37); Alanine Aminotransfer ALT/SGPT 25 U/L (13-56); Albumin, Serum 3.5 g/dL (3.2-5.0); Alkaline Phosphatase 70 U/L (45-117); Anion Gap 5 (5-15); BUN 20 mg/dL (7-18); Calcium,Total 8.9 mg/dL (8.5-10.1); Chloride 109 mmol/L (98-107); Creatinine, Serum 0.87 mg/dL (0.55-1.02); EST Glomerular Filtration Rate 69 mL/min (>60); Est Glom Filt Rate - Afr Amer 84 mL/min (>60); Estimated Creatinine Clearance 44.03 ml/min; Globulin 3.2 g/dL (2.2-4.2); Glucose 85 mg/dL (74-106); Potassium 3.7 mmol/L (3.5-5.1); Protein, Total 6.7 g/dL (6.4-8.2); Sodium Level 141 mmol/L (136-145)
[2022-07-15] MEDS: Ocrelizumab 600mg Infusion 40 MG IV (09:33)
[2022-07-15 14:33] VITALS: BP 92/51; PULSE 87; TEMP 36.8; O2SAT 96
[2022-07-16 05:08] LABS: Immunoglobulin A 123 mg/dL (87-352); Immunoglobulin G 581 mg/dL (586-1602)
[2022-07-16 12:19] LABS: Immunoglobulin M 30 mg/dL (26-217)
== END | disposition home or self-care (01) ==
LOC: MEDOUTP 08:17
PROVIDERS: PCP Internal Medicine; Referring Provider Psychiatry & Neurology Neurology; Visit Provider Psychiatry & Neurology Neurology
DX: G35 Multiple sclerosis (principal)
CPT/HCPCS: 80053; 82784; 85025; 96375; 96413; 96415; J7040; J7050; A4216; J2350

== ENCOUNTER 2022-11-23 07:57 | Emergency (ER) | payer MEDICARE, SELFPAY ==
[2022-11-23 07:57] VITALS: BP 118/39; PULSE 89; RESP 16; TEMP 36.2; O2SAT 100
--- NOTE | 2022-11-23 08:34 | EDS_ITS ---
HPI History of Present Illness Chief Complaint: Laceration Narrative Narrative: 57-year-old female presenting with laceration to the chin just below her lip. She states she fell out of bed today striking her lip/chin. Bleeding is been controlled. Tetanus is up-to-date. No LOC, headache, visual complaints, nausea or vomiting. No neck pain. Patient does complain of some dental pain and the taste of blood in her mouth [employer] [facility] Medical History Back pain Diverticulitis of large intestine with abscess History of diverticulitis History of multiple sclerosis HTN (hypertension) Osteoarthritis Osteoporosis Peritonitis (acute) generalized Sepsis Sinus tachycardia by electrocardiogram Thyroid nodule Home Medications gabapentin 100 mg capsule 100 mg PO BIDCM nerve pain 01/30/17 [History Last Taken 01/23/20] gabapentin 300 mg capsule 300 mg PO QHS MS 01/30/17 [History Last Taken 01/22/20] alendronate 35 mg tablet 35 mg PO TOBIAS bone health 06/06/19 [History Last Taken 01/19/20] cholecalciferol (vitamin D3) 50 mcg (2,000 unit) tablet 2,000 unit PO DAILY bone health 06/06/19 [History Last Taken 01/23/20] calcium carbonate 500 mg calcium (1,250 mg) chewable tablet (Calci-Chew) 500 mg PO DAILY 10/07/19 [History Last Taken Unknown] ibuprofen 600 mg tablet 600 mg PO Q6H PRN PRN Pain Score 1-10/10 01/29/20 [Rx Last Taken Unknown] fluticasone propionate 50 mcg/actuation nasal spray,suspension 1 spray NASAL DAILY 04/30/20 [History Last Taken Unknown] ocrelizumab 30 mg/mL intravenous solution 300 mg IV .TWICE YEARLY MS 04/30/20 [History Last Taken Unknown] doxycycline monohydrate 50 mg capsule 50 mg PO DAILY 12/31/21 [History Last Taken Unknown] baclofen 10 mg tablet 10 mg PO TID MS 03/07/22 [History Last Taken Unknown] methylphenidate HCl 5 mg tablet (Ritalin) 5 mg PO DAILY PRN 03/07/22 [History Last Taken Unknown] estradiol 0.01% (0.1 mg/gram) vaginal cream (Estrace) See Rx Instructions v aginal .COMPLEX #42.5 grams 07/14/22 [Rx Last Taken Unknown] Allergy/AdvReac Type Severity Reaction Status Date / Time Sulfa (Sulfonamide Allergy Intermediate Hives Verified 11/23/22 07:59 Antibiotics) Family History Mother Thyroid disorder Grandfather Colon cancer Daughter Cancer skin Other Diabetes Surgical History History of appendectomy History of colonoscopy (~2013) History of tonsillectomy History of tubal ligation Status post colectomy Social History household members: spouse number of children: 2 current occupational status: retired history of recent travel: No sexually active: Yes Smoking Status: Never smoker alcohol intake: never substance use type: does not use what type of physical activity do you participate in: bicycling and aerobics frequency: daily seatbelt use: always do you feel safe at home: Yes additional social history: - Elvin GUAJ[employer] ED Constitutional Constitutional ED: Denies chills, fever(s) or sweats Eyes Eyes: Denies blurry vision or change in vision ENT ENT ED: Reports other Details: Gumline pain ; Denies ear pain or sore throat Cardiovascular Cardiovascular: Denies chest pain, palpitations or racing heartbeat Respiratory/Chest Respiratory/Chest: Denies cough, dyspnea or sputum Gastrointestinal Gastrointestinal: Denies abdominal pain, constipation, diarrhea, nausea or vomiting Genitourinary Genitourinary ED: Denies dysuria, hematuria or urinary frequency Musculoskeletal Musculoskeletal: Denies arthralgias, myalgias or neck pain Integumentary Reports abscess and other Details: Laceration to chin Neurologic Neurologic: Denies headache(s), paresthesias or weakness Psychiatric Psychiatric: Denies anxiety, depression, suicidal ideation or suicidal thoughts Endocrine Endocrinology: Denies polydipsia or polyuria EXAM Physical Exam Const Vital Signs: 11/23/22 07:57 Temperature 97.2 F L Temperature Source Temporal Pulse Rate 89 Respiratory Rate 16 Blood Pressure 118/39 L Blood Pressure Mean 65 Pulse Ox 100 Oxygen Delivery Method Room Air Positive well nourished General Appearance ED: NAD HEENT HEENT Narrative: The gingiva of at the base of tooth #23, 24, 25, 26 is slightly macerated. The dentition is intact. atraumatic and trauma Eyes PERRL and EOMs intact bilaterally Neck full ROM General: Negative for tenderness Resp normal respiratory effort and clear to auscultation bilaterally Auscultation: Negative for rales, rhonchi or wheezes Cardio regular rhythm Rate: regular rate Back/Spine normal to inspection Neuro oriented x3 and CN's II-XII intact bilaterally Sensorium / Orientation: alert Motor Exam: strength 5/5 throughout Skin Skin Narrative: 4 cm horizontal laceration with good approximation of the wound margins shelter between the lower lip and the cleft of the chin. It is not a through and through laceration. MDM MDM MDM Narrative Medical decision making narrative: Tetanus is up-to-date. Bleeding is well controlled. Lip laceration will need to be sutured. It is not through and through. The gingiva associated with teeth numbers 23 through 25 are slightly macerated but the dentition is intact. Patient did not require anything for pain. Wound was cleaned with chlorhexidine. Patient wound anesthetized with 4 cc of lidocaine with epinephrine. Good anesthesia achieved. Wound was irrigated with 250 cc of sterile saline. The wound margins are fairly well approximated but I sutured these in place using #4 6?0 Ethilon sutures. Patient counseled on wound care. She is counseled follow-up in 5 to 7 days for suture removal. Patient also counseled after she eats she should swish and spit to avoid getting food into Macerated gingival tissue. Patient discharged home in stable condition. Impression: 1. Mechanical fall 2. Facial laceration 3. Gingival injury Lab Data Attestation: I reviewed the patient's lab results. Discharge Plan Triage Chief Complaint: Laceration ED Provider: Perez Bates Dx/Rx/DC Orders Instructions: ED FACIAL LACERATION Suture Tape Prescriptions: No Action calcium carbonate [Calci-Chew] 500 mg calcium (1,250 mg) tablet,chewable 500 mg PO DAILY methylphenidate HCl [Ritalin] 5 mg tablet 5 mg PO DAILY PRN gabapentin 300 MG capsule 300 mg PO QHS gabapentin 100 MG capsule 100 mg PO BIDCM Label Comments: WITH BREAKFAST AND LUNCH baclofen 10 mg tablet 10 mg PO TID alendronate 35 MG tablet 35 mg PO TOBIAS cholecalciferol (vitamin D3) 2,000 UNIT tablet 2,000 unit PO DAILY ibuprofen 600 MG tablet 600 mg PO Q6H PRN PRN (Reason: Pain Score 1-10/10) 0RF fluticasone propionate 1 SPRAY spray,suspension 1 spray NASAL DAILY ocrelizumab 300 MG/10 ML solution 300 mg IV .TWICE YEARLY Rx Instructions: NEXT DOSE 06/04/20 doxycycline monohydrate 50 mg Capsule 50 mg PO DAILY estradiol [Estrace] 0.01 % (0.1 mg/gram) cream See Rx Instructions VAGINAL .COMPLEX Qty: 42.5 2RF Rx Instructions: pea sized amount VAGINAL 3 nights per week Primary Care Provider: Meghna Gregory Referrals: Meghna Gregory DO [Primary Care Provider] - Disposition Disposition: Home, Self Care Discharge Date/Time: 11/23/22 10:31
[2022-11-23 09:00] VITALS: BMI 26.6
[2022-11-23] MEDS: Lidocaine 1% /Epi 1:100 (20ml) 20 ML Vial INFILT (10:30)
== END 2022-11-23 10:31 | disposition home or self-care (01) ==
PROVIDERS: Emergency Provider Student in an Organized Health Care Education/Training Program; PCP Internal Medicine; Visit Provider Student in an Organized Health Care Education/Training Program
DX: S01.511A Laceration without foreign body of lip, initial encounter (principal); G35 Multiple sclerosis; S01.512A Laceration without foreign body of oral cavity, initial encounter; I10 Essential (primary) hypertension; M19.90 Unspecified osteoarthritis, unspecified site; M81.0 Age-related osteoporosis without current pathological fracture; Z79.899 Other long term (current) drug therapy; W06.XXXA Fall from bed, initial encounter
CPT/HCPCS: 12013; 99282

== ENCOUNTER → 2023-01-09 | Outpatient (CLI) | payer MEDICARE, SELFPAY ==
[2023-01-09 12:05] LABS: Absolute Lymphocyte Count 1.61 X10^3/uL (0.83-4.51); Absolute Neutrophil Count 5.9 X10^3/uL (2.0-7.7); Basophil# 0.08 X10^3/uL; Basophil% 0.9 % (0-1); Eosinophil# 0.31 X10^3/uL; Eosinophils% 3.5 % (0-5); Hematocrit 42.1 % (37-47); Hemoglobin 13.2 g/dL (12.0-15.0); Lymphocyte # 1.61 X10^3/ul (0.83-4.51); Lymphocyte % 18.3 % (19-41); Mean Corp Hgb Conc 31.4 g/dL (32-36); Mean Corpuscular Hgb 30.1 pg (27.0-32.0); Mean Corpuscular Volume 96.1 fL (81-99); Mean Platelet Vol. 8.9 fl (6.2-12.0); Monocyte# 0.89 X10^3/uL; Monocyte% 10.1 % (0-10); NRBC Flagged by Analyzer 0 % (0-5); Neutrophil # 5.85 X10^3/uL (2.7-7.7); Neutrophil % 66.7 % (47-70); Platelet Count 422 K/mm3 (150-450); RBC Distribution Width CV 12.6 % (11.6-14.6); RBC Distribution Width SD 44.5 fl (35.1-43.9); Red Blood Count 4.38 M/mm3 (4.2-5.4); White Blood Count 8.8 K/mm3 (4.4-11.0)
[2023-01-09 12:43] LABS: ALB/GLOB Ratio 1.3 RATIO (0.9-2.4); AST(SGOT) 29 U/L (15-37); Alanine Aminotransfer ALT/SGPT 25 U/L (13-56); Albumin, Serum 3.6 g/dL (3.2-5.0); Alkaline Phosphatase 63 U/L (45-117); Anion Gap 1 (5-15); BUN 18 mg/dL (7-18); BUN/Creat Ratio 22.4 RATIO (10-20); Calcium,Total 8.6 mg/dL (8.5-10.1); Chloride 108 mmol/L (98-107); EST Glomerular Filtration Rate 75 mL/min (>60); Est Glom Filt Rate - Afr Amer 91 mL/min (>60); Globulin 2.8 g/dL (2.2-4.2); Glucose 89 mg/dL (74-106); Potassium 4.3 mmol/L (3.5-5.1); Protein, Total 6.4 g/dL (6.4-8.2); Sodium Level 137 mmol/L (136-145)
== END | disposition home or self-care (01) ==
PROVIDERS: PCP Internal Medicine; Referring Provider Nurse Practitioner Family; Visit Provider Nurse Practitioner Family
DX: G35 Multiple sclerosis (principal)
CPT/HCPCS: 36415; 80053; 85025

== ENCOUNTER 2023-01-23 07:53 | Outpatient (CLI) | payer MEDICARE, SELFPAY ==
[2023-01-23 08:11] VITALS: BP 94/61; PULSE 91; RESP 16; TEMP 36.2; O2SAT 99; BMI 19.9
[2023-01-23] MEDS: Acetaminophen 500 MG Tablet 1000 MG PO (08:50)
[2023-01-23] MEDS: DiphenhydrAMINE 50 MG/ML Syringe 12.5 MG IV (08:55)
[2023-01-23] MEDS: MethylPREDNISolone 125 MG/2 ML Vial 100 MG IV (08:59)
[2023-01-23] MEDS: Ocrelizumab 600mg Infusion 40 MG IV (09:32)
[2023-01-23 14:25] VITALS: BP 103/55; PULSE 92
== END 2023-01-23 07:54 | disposition home or self-care (01) ==
PROVIDERS: PCP Internal Medicine; Referring Provider Psychiatry & Neurology Neurology; Visit Provider Psychiatry & Neurology Neurology
DX: G35 Multiple sclerosis (principal)
CPT/HCPCS: 96365; J7040; J7050; A4216; J2350

== ENCOUNTER → 2023-03-15 | Outpatient (CLI) | payer MEDICARE, SELFPAY ==
[2023-03-15 13:15] LABS: Free T3 2.6 pg/mL (2.18-3.98); T4 Total, Thyroxin 6.9 ug/dL (4.8-13.9); Thyroid Stim Hormone (TSH) 1.75 uIU/mL (0.358-3.74)
== END | disposition home or self-care (01) ==
LOC: MTLAB 10:26
PROVIDERS: PCP Internal Medicine; Referring Provider Surgery; Visit Provider Surgery
DX: E04.1 Nontoxic single thyroid nodule (principal)
CPT/HCPCS: 36415; 84436; 84443; 84481

== ENCOUNTER → 2023-03-24 | Outpatient (CLI) | payer MEDICARE, SELFPAY ==
--- NOTE | 2023-03-24 12:58 | US_ITS ---
STUDY: THYROID ULTRASOUND REASON FOR EXAM: Female, 68 years old. thyroid nodules TECHNIQUE: Ultrasound evaluation of the thyroid was performed with real-time and static santana-scale imaging. COMPARISON: Thyroid ultrasound dated May 26, 2020 FINDINGS: RIGHT LOBE: The right lobe of the thyroid gland measures 4.5 x 1.0 x 1.2 cm. There is a homogeneous echotexture. A mixed cystic and solid nodule is present in the upper pole and anteromedial aspect of the right lobe of the thyroid gland measuring 1.2 x 0.6 x 0.6 cm. This nodule is unchanged from the prior study. 2 additional tiny cysts are adjacent to the dominant lesion. LEFT LOBE: The left lobe of the thyroid gland measures 3.6 x 0.9 x 1.0 cm. There is a homogeneous echotexture. There are no demonstrated solid, cystic or complex lesions. ISTHMUS: The isthmus measures . The regional lymph nodes are normal. US/Thyroid IMPRESSION: 1. A mixed cystic and solid nodule is present in the upper pole and anteromedial aspect of the right lobe of the thyroid gland measuring 1.2 x 0.6 x 0.6 cm. 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 Electronically Signed: Luis Mas MD at 12:48 EDT ,
== END | disposition home or self-care (01) ==
PROVIDERS: PCP Internal Medicine; Referring Provider Surgery; Visit Provider Surgery
DX: E04.1 Nontoxic single thyroid nodule (principal)
CPT/HCPCS: 76536

== ENCOUNTER → 2023-04-06 | Outpatient (CLI) | payer MEDICARE, SELFPAY ==
--- NOTE | 2023-04-06 09:22 | BI_ITS ---
MAMMOGRAPHY - BILATERAL SCREENING REASON FOR EXAM: Female, 68 years old. Routine annual screening examination. PERTINENT HISTORY: Non-contributory. TECHNIQUE: Digital bilateral breast marciano (3D mammographic acquisition) in the CC and MLO projections. 2-D mediolateral oblique (MLO) and craniocaudad (CC) views of both breasts were obtained. CAD: Full Field Digital Mammography with Computer Added Detection was performed. COMPARISON: Comparison is made with prior examination dated March 31, 2022 and March 30, 2021. FINDINGS: Breast Composition: The breasts are heterogeneously dense, which may obscure small masses. There are no dominant masses or suspicious calcifications. Stable small benign-appearing bilateral axillary lymph nodes. No other significant abnormalities are identified. There has been no significant change since the prior study. BI/SCRN MAMM (CAD)W/MARCIANO BILAT IMPRESSION: Stable bilateral screening mammogram. Yearly follow-up mammogram recommended. (A) ASSESSMENT CATEGORY: BIRADS Category 2: Benign. A letter regarding these results will be sent to the patient by the facility within 30 days. Approximately 10% of breast cancers are not detected by mammography. A normal mammogram should not delay biopsy of a clinically suspicious abnormality. [id number] Electronically Signed: Antoine Recinos MD at 10:19 EDT ,
--- NOTE | 2023-04-06 09:48 | BD_ITS ---
STUDY: DUAL ENERGY X-RAY ABSORPTIOMETRY / DXA REASON FOR EXAM: Female, 68 years old. Osteoporosis TECHNIQUE: Bone Mineral Density (BMD) measurements of lumbar spine and bilateral hips were obtained. COMPARISON: Comparison is made with prior study March 30, 2021. FINDINGS: Lumbar Spine (L1-L4): g/cm2 (0.820) / T-score (-2.1) / Z-score (-0.1) Findings are suggestive of osteopenia with a high fracture risk. Left Femur Total: g/cm2 (0.715) / T-score (-1.9) / Z-score (-0.5) Left Femoral Neck: g/cm2 (0.681) / T-score (-1.5) / Z-score (0.2) Right Femur Total: g/cm2 (0.651) / T-score (-2.4) / Z-score (-1.0) Right Femoral Neck: g/cm2 (0.645) / T-score (-1.8) / Z-score (-0.2) The T-Scores on the most recent prior examination were: Lumbar Spine (L1-L4): There has been worsening of bone density since the previous examination. Left Femur Total: which represents a worsening of 6%. Right Femur Total: which represents a worsening of 7.3%. BD/Dexa Bone Density Study IMPRESSION: The patient is considered osteopenic as outlined below according to World Jet Organization (WHO) criteria with a high fracture risk. There has been worsening of bone density since the previous examination. Reference Information: The T-score is the number of standard deviations above or below the standard which is normal for young adults at their peak bone mineral density. The World Health Organization (WHO) interprets the T-scores as follows: Above -1 Normal bone density Between -1 and -2.5 Osteopenia Equal to / or below -2.5 Osteoporosis As a practical clinical guideline, osteopenia may be graded as follows: Mild -1 through -1.5 Moderate -1.6 through -2.0 Severe -2.1 through -2.4 The Z-score is the number of standard deviations above or below age-matched controls. A Z-score of less than -1.5 would be considered abnormal. References: 1. NIH Osteoporosis and Related Bone Diseases www osteo.org 2. International Society for Clinical Densitometry www iscd.org 3. National Osteoporosis Foundation www nof.org Electronically Signed: Antoine Recinos MD at 14:55 EDT ,
== END | disposition home or self-care (01) ==
LOC: OPBD 09:21
PROVIDERS: PCP Internal Medicine; Referring Provider Nurse Practitioner Women's Health; Visit Provider Nurse Practitioner Women's Health
DX: Z12.31 Encounter for screening mammogram for malignant neoplasm of breast (principal); M81.0 Age-related osteoporosis without current pathological fracture
CPT/HCPCS: 77063; 77067; 77080

== ENCOUNTER 2023-07-31 07:51 | Outpatient (CLI) | payer MEDICARE, SELFPAY ==
[2023-07-31 07:59] VITALS: BP 105/62; PULSE 85; RESP 16; TEMP 36.2; O2SAT 98; BMI 19.8
[2023-07-31] MEDS: Acetaminophen 500 MG Tablet 1000 MG PO (08:16)
[2023-07-31] MEDS: MethylPREDNISolone 125 MG/2 ML Vial 100 MG IV (08:26)
[2023-07-31] MEDS: DiphenhydrAMINE 50 MG/ML Syringe 12.5 MG IV (08:28)
[2023-07-31] MEDS: Ocrelizumab 600mg Infusion 40 MG IV (08:48)
== END 2023-07-31 07:52 | disposition home or self-care (01) ==
LOC: MEDOUTP 07:51
PROVIDERS: PCP Internal Medicine; Referring Provider Psychiatry & Neurology Neurology; Visit Provider Psychiatry & Neurology Neurology
DX: G35 Multiple sclerosis (principal)
CPT/HCPCS: 96365; 96366; 96375; J7040; J7050; A4216; J2350

== ENCOUNTER 2023-08-15 07:35 | Emergency (ER) | payer MEDICARE, SELFPAY ==
[2023-08-15 07:36] VITALS: BP 110/53; PULSE 88; RESP 18; TEMP 36.6; O2SAT 99
[2023-08-15 07:38] VITALS: BMI 19.8
--- NOTE | 2023-08-15 07:53 | CT_ITS ---
STUDY: CT BRAIN WITHOUT CONTRAST REASON FOR EXAM: Female, 68 years old. Trauma RADIATION DOSAGE (If Supplied By Facility): CTDIvol = ( 47.06 ) mGy, DLP = ( 819.74 ) mGycm TECHNIQUE: Transaxial CT imaging of the brain was performed without administration of intravenous contrast material. Individualized dose optimization techniques were used for this CT. COMPARISON: No relevant priors. FINDINGS: Normal soft tissue structures. Normal calvarium. There is mild cerebral atrophy with widening of the extra-axial spaces and ventricular dilatation. Normal white matter tracts of the cerebral hemispheres. There are small punctate calcifications of the basal ganglia which are seen in the aging brain as a normal variant. Normal brainstem. Normal cerebellum. There is no intracranial hemorrhage. There are no findings of an acute ischemic infarction. Normal visualized paranasal sinuses. CT/Brain/Head without Contrast IMPRESSION: Chronic involutional changes of the brain. Electronically Signed: Antoine Recinos MD at 8:48 EST ,
--- NOTE | 2023-08-15 07:53 | CT_ITS ---
STUDY: CT CERVICAL SPINE WITHOUT CONTRAST REASON FOR EXAM: Female, 68 years old. Head injury due to a fall. RADIATION DOSAGE (If Supplied By Facility): CTDIvol = ( 17.32 ) mGy, DLP = ( 307.63 ) mGycm TECHNIQUE: High resolution transaxial imaging was performed without contrast material. Sagittal and coronal images were reconstructed. Individualized dose optimization techniques were used for this CT. COMPARISON: None FINDINGS: Normal craniovertebral junction. There are degenerative changes of the anterior atlantoaxial articulation. Normal odontoid process. Normal cervical lordosis. Normal vertebral bodies and posterior osseous elements. C2-3: Normal endplates. Normal disc height and morphology. Normal central canal and intervertebral neuroforamina. C3-4: Normal endplates. Normal disc height and morphology. Normal central canal and intervertebral neuroforamina. C4-5: Mild degree of disc space narrowing. Spondylosis. C5-6: Mild degree of disc space narrowing. Uncovertebral arthrosis. No significant neural foraminal stenosis seen. C6-7: Normal endplates. Normal disc height and morphology. Normal central canal and intervertebral neuroforamina. C7-T1: Normal endplates. Normal disc height and morphology. Normal central canal and intervertebral neuroforamina. Normal visualized soft tissue structures. CT/Spine Cervical without Contras IMPRESSION: Multilevel degenerative changes, as described above. Electronically Signed: Antoine Recinos MD at 8:50 EST ,
--- NOTE | 2023-08-15 07:54 | EX.ED.GENINJ ---
HPI History of Present Illness Chief Complaint: Head Injury Informant: patient Narrative Narrative: Patient presents after head injury. Patient has multiple sclerosis. She was walking out of her garage into the house. She has a drop toe and it caught on the steps. This caused her to fall back onto the concrete garage floor and hit her head. No loss of consciousness. But since the accident she feels a little bit lightheaded when standing. She is not nauseated. She also has some soreness in her neck. No pain further down her back. No chest pain. No leg pain. She is not on any blood thinners. [facility] Medical History Back pain Diverticulitis of large intestine with abscess History of diverticulitis History of multiple sclerosis HTN (hypertension) Osteoarthritis Osteoporosis Peritonitis (acute) generalized Sepsis Sinus tachycardia by electrocardiogram Thyroid nodule Home Medications gabapentin 100 mg capsule 100 mg PO BIDCM nerve pain 01/30/17 [History Last Taken 01/23/20] gabapentin 300 mg capsule 300 mg PO QHS MS 01/30/17 [History Last Taken 01/22/20] alendronate 35 mg tablet 35 mg PO TOBIAS bone health 06/06/19 [History Last Taken 01/19/20] cholecalciferol (vitamin D3) 50 mcg (2,000 unit) tablet 2,000 unit PO DAILY bone health 06/06/19 [History Last Taken 01/23/20] calcium carbonate 500 mg calcium (1,250 mg) chewable tablet (Calci-Chew) 500 mg PO DAILY 10/07/19 [History Last Taken Unknown] fluticasone propionate 50 mcg/actuation nasal spray,suspension 1 spray NASAL DAILY 04/30/20 [History Last Taken Unknown] ocrelizumab 30 mg/mL intravenous solution 300 mg IV .TWICE YEARLY MS 04/30/20 [History Last Taken Unknown] doxycycline monohydrate 50 mg capsule 50 mg PO DAILY 12/31/21 [History Last Taken Unknown] baclofen 10 mg tablet 10 mg PO TID MS 03/07/22 [History Last Taken Unknown] methylphenidate HCl 5 mg tablet (Ritalin) 5 mg PO DAILY PRN Anxiety 03/07/22 [History Last Taken Unknown] estradiol 0.01% (0.1 mg/gram) vaginal cream (Estrace) See Rx Instructions vaginal .COMPLEX #42.5 grams 07/14/22 [Rx Last Taken Unknown] ammonium lactate 12 % topical cream 1 applic topical DAILY PRN dry skin 07/31/23 [History Last Taken Unknown] ondansetron 4 mg disintegrating tablet 4 mg PO Q8H PRN PRN Nausea #10 tabs 08/15/23 [Rx Last Taken Unknown] Allergy/AdvReac Type Severity Reaction Status Date / Time Sulfa (Sulfonamide Allergy Intermediate Hives Verified 08/15/23 07:38 Antibiotics) Family History Mother Thyroid disorder Grandfather Colon cancer Daughter Cancer skin Other Diabetes Surgical History History of appendectomy History of colonoscopy (~2013) History of tonsillectomy History of tubal ligation Status post colectomy Social History household members: spouse number of children: 2 current occupational status: retired history of recent travel: No sexually active: Yes Smoking Status: Never smoker alcohol intake: never substance use type: does not use what type of physical activity do you participate in: bicycling and aerobics frequency: daily seatbelt use: always do you feel safe at home: Yes additional social history: - Elvin GUAJARDO ED Constitutional Constitutional ED: Denies chills or fever(s) Eyes Eyes: Denies blurry vision or change in vision ENT ENT ED: Reports other Details: See history of present illness. ; Denies ear pain, rhinorrhea or sore throat Cardiovascular Cardiovascular: Denies chest pain or palpitations Respiratory/Chest Respiratory/Chest: Denies cough Gastrointestinal Gastrointestinal: Denies nausea or vomiting Musculoskeletal Musculoskeletal: Reports neck pain; Denies arthralgias or back pain Integumentary Denies Abrasions or rash Neurologic Neurologic: Reports headache(s); Denies paresthesias or weakness Endocrine Endocrinology: Denies polydipsia or polyuria Hematologic/Lymphatic Hematologic/Lymphatic: Denies easy bleeding or easy bruising Allergic/Immunologic Allergic/Immunologic ED: Denies urticaria EXAM Physical Exam Narrative Exam Narrative: CONSTITUTIONAL: Patient is nontoxic in appearance. The patient looks comfortable. Work of breathing looks normal. She carries on a normal conversation. HEENT: No notable laceration contusion or abrasion at this time. No step-off. No auricular trauma noted. EYES: No conjunctival injection. No proptosis. Range of motion is normal. No photophobia. Pupils are normal and reactive. NECK: I am not getting tenderness focally. It is just diffusely sore. No bruising visible yet at this point. CARDIOVASCULAR: Regular rate. Regular rhythm. No notable murmur. No JVD. RESPIRATORY: No respiratory distress. Breathing is unlabored. No wheezes. GASTROINTESTINAL: Not distended. Bowel sounds are normal. No tenderness. GENITOURINARY: No CVA tenderness. MUSCULOSKELETAL: Atraumatic. No tenderness or pain with motion NEUROLOGICAL: Patient is alert and appropriate. No focal deficit noted. SKIN: No noted rashes. No diaphoresis. PSYCHIATRIC: Patient is calm. Mood is appropriate. Const Vital Signs: 08/15/23 07:36 08/15/23 07:54 Temperature 97.8 F Temperature Source Temporal Pulse Rate 88 Respiratory Rate 18 Respiratory Effort Normal Respiratory Depth Normal Respiratory Pattern Normal Blood Pressure 110/53 L Blood Pressure Mean 72 Pulse Ox 99 Oxygen Delivery Method Room Air Room Air MDM MDM MDM Narrative Medical decision making narrative: My independent interpretation the patient's CT scan of the head shows no acute process. I see no fracture or bleeding. Final reading is chronic involutional changes of the brain. My independent or potation of the CT scan of the patient's neck shows arthritis but no acute process. Final reading is similar. Checked the patient again. She does have a headache. I explained that we do not usually like using strong pain medicines for headaches post injury. These can produce nausea and confusion which can confuse the picture related to the injury. I will write for some Zofran because she states she gets a little bit nauseated at times with motions. We can use Tylenol. I discussed concussion and expected course and reasons to return. Radiography Diagnostic Testing: Clinical Impression(s) from Imaging Studies Brain CT 08/15/23 07:53 IMPRESSION: Chronic involutional changes of the brain. Electronically Signed: Antoine Recinos MD at 8:48 EST , Cervical Spine CT 08/15/23 07:53 IMPRESSION: Multilevel degenerative changes, as described above. Electronically Signed: Antoine Recinos MD at 8:50 EST , Discharge Plan Triage Chief Complaint: Head Injury ED Provider: Yoel Marquez Dx/Rx/DC Orders Clinical Impression: Fall on steps, Hx of multiple sclerosis, Closed head injury with concussion, Cervical strain Instructions: ED Head Injury (Adult) Prescriptions: New ondansetron [ondansetron] 4 mg tablet,disintegrating 4 mg PO Q8H PRN PRN (Reason: Nausea) Qty: 10 0RF No Action calcium carbonate [Calci-Chew] 500 mg calcium (1,250 mg) tablet,chewable 500 mg PO DAILY methylphenidate HCl [Ritalin] 5 mg tablet 5 mg PO DAILY PRN (Reason: Anxiety) gabapentin 300 MG capsule 300 mg PO QHS gabapentin 100 MG capsule 100 mg PO BIDCM Patient Comments: WITH BREAKFAST AND LUNCH baclofen 10 mg tablet 10 mg PO TID alendronate 35 MG tablet 35 mg PO TOBIAS cholecalciferol (vitamin D3) 2,000 UNIT tablet 2,000 unit PO DAILY fluticasone propionate 1 SPRAY spray,suspension 1 spray NASAL DAILY ocrelizumab 300 MG/10 ML solution 300 mg IV .TWICE YEARLY Rx Instructions: NEXT DOSE 06/04/20 doxycycline monohydrate 50 mg Capsule 50 mg PO DAILY ammonium lactate 12 % cream 1 applic topical DAILY PRN (Reason: dry skin) estradiol [Estrace] 0.01 % (0.1 mg/gram) cream See Rx Instructions VAGINAL .COMPLEX Qty: 42.5 2RF Rx Instructions: pea sized amount VAGINAL 3 nights per week Primary Care Provider: Meghna Gregory Referrals: Meghna Gregory DO [Primary Care Provider] - 1 Week if not improving Disposition Disposition: Home, Self Care
[2023-08-15] MEDS: Ondansetron ODT 4 MG Tablet PO (09:23)
[2023-08-15] MEDS: Acetaminophen 500 MG Tablet PO (09:23)
== END 2023-08-15 09:33 | disposition home or self-care (01) ==
PROVIDERS: Emergency Provider Emergency Medicine; PCP Internal Medicine; Visit Provider Emergency Medicine
DX: S06.0X0A Concussion without loss of consciousness, initial encounter (principal); G35 Multiple sclerosis; W10.9XXA Fall (on) (from) unspecified stairs and steps, initial encounter; I10 Essential (primary) hypertension; Y92.89 Other specified places as the place of occurrence of the external cause; M81.0 Age-related osteoporosis without current pathological fracture; Z90.49 Acquired absence of other specified parts of digestive tract; S16.1XXA Strain of muscle, fascia and tendon at neck level, initial encounter
CPT/HCPCS: 70450; 72125; 99282

== ENCOUNTER 2023-08-16 12:08 | Emergency (ER) | payer MEDICARE, SELFPAY ==
[2023-08-16 12:09] VITALS: BP 161/111; PULSE 75; RESP 20; TEMP 35.7; O2SAT 99; BMI 20.7
--- NOTE | 2023-08-16 13:03 | CT_ITS ---
STUDY: CT BRAIN WITHOUT CONTRAST REASON FOR EXAM: Female, 68 years old. Headache after head injury RADIATION DOSAGE (If Supplied By Facility): CTDIvol = ( 47.06 ) mGy, DLP = ( 855.03 ) mGycm TECHNIQUE: Transaxial CT imaging of the brain was performed without administration of intravenous contrast material. Individualized dose optimization techniques were used for this CT. COMPARISON: Comparison is made with prior examination of August 15, 2023. FINDINGS: Normal soft tissue structures. Normal calvarium. There is mild cerebral atrophy with widening of the extra-axial spaces and ventricular dilatation. Normal white matter tracts of the cerebral hemispheres. There are small punctate calcifications of the basal ganglia which are seen in the aging brain as a normal variant. Normal brainstem. Normal cerebellum. There is no intracranial hemorrhage. There are no findings of an acute ischemic infarction. Normal visualized paranasal sinuses. CT/Brain/Head without Contrast IMPRESSION: Chronic involutional changes of the brain. Electronically Signed: Antoine Recinos MD at 13:35 EST ,
--- NOTE | 2023-08-16 13:04 | EX.ED.GENINJ ---
HPI History of Present Illness Chief Complaint: Head Injury Detail of Chief Complaint: Headache after head injury Informant: patient Narrative Narrative: Patient presents the emergency department complaint of a headache. Patient states that she fell yesterday striking her head and was seen in the emergency department. Patient states that she has MS and has a foot drop on her right foot and she was coming up the steps when she caught the step and fell onto the left side and hit her head. She had CT imaging of her brain and C-spine that were unremarkable. She went home and she was having a headache but this morning around 4 AM started having more severe headache and nausea and feeling like she was dizzy. She presents via EMS. Denies chest pain or abdomen pain. She denies dysuria or recent illness. [facility] Medical History Back pain Diverticulitis of large intestine with abscess History of diverticulitis History of multiple sclerosis HTN (hypertension) Osteoarthritis Osteoporosis Peritonitis (acute) generalized Sepsis Sinus tachycardia by electrocardiogram Thyroid nodule Home Medications gabapentin 100 mg capsule 100 mg PO BIDCM nerve pain 01/30/17 [History Last Taken 01/23/20] gabapentin 300 mg capsule 300 mg PO QHS MS 01/30/17 [History Last Taken 01/22/20] alendronate 35 mg tablet 35 mg PO TOBIAS bone health 06/06/19 [History Last Taken 01/19/20] cholecalciferol (vitamin D3) 50 mcg (2,000 unit) tablet 2,000 unit PO DAILY bone health 06/06/19 [History Last Taken 01/23/20] calcium carbonate 500 mg calcium (1,250 mg) chewable tablet (Calci-Chew) 500 mg PO DAILY 10/07/19 [History Last Taken Unknown] fluticasone propionate 50 mcg/actuation nasal spray,suspension 1 spray NASAL DAILY 04/30/20 [History Last Taken Unknown] ocrelizumab 30 mg/mL intravenous solution 300 mg IV .TWICE YEARLY MS 04/30/20 [History Last Taken Unknown] doxycycline monohydrate 50 mg capsule 50 mg PO DAILY 12/31/21 [History Last Taken Unknown] baclofen 10 mg tablet 10 mg PO TID MS 03/07/22 [History Last Taken Unknown] methylphenidate HCl 5 mg tablet (Ritalin) 5 mg PO DAILY PRN Anxiety 03/07/22 [History Last Taken Unknown] estradiol 0.01% (0.1 mg/gram) vaginal cream (Estrace) See Rx Instructions vaginal .COMPLEX #42.5 grams 07/14/22 [Rx Last Taken Unknown] ammonium lactate 12 % topical cream 1 applic topical DAILY PRN dry skin 07/31/23 [History Last Taken Unknown] ondansetron 4 mg disintegrating tablet 4 mg PO Q8H PRN PRN Nausea #10 tabs 08/15/23 [Rx Last Taken Unknown] hydrocodone-acetaminophen 5-325mg 5mg-325mg 1 tab PO Q4H PRN PRN Pain 2 days #10 TABLETS 08/16/23 [Rx Last Taken Unknown] Allergy/AdvReac Type Severity Reaction Status Date / Time Sulfa (Sulfonamide Allergy Intermediate Hives Verified 08/15/23 07:38 Antibiotics) Family History Mother Thyroid disorder Grandfather Colon cancer Daughter Cancer skin Other Diabetes Surgical History History of appendectomy History of colonoscopy (~2013) History of tonsillectomy History of tubal ligation Status post colectomy Social History household members: spouse number of children: 2 current occupational status: retired history of recent travel: No sexually active: Yes Smoking Status: Never smoker alcohol intake: never substance use type: does not use what type of physical activity do you participate in: bicycling and aerobics frequency: daily seatbelt use: always do you feel safe at home: Yes additional social history: - Elvin GUAJARDO BENNETT ED Review of Systems ROS Unobtainable: other Constitutional Constitutional ED: Reports lethargy; Denies chills, fever(s), sweats or weight loss Eyes Eyes: Denies blurry vision, change in vision or diplopia ENT ENT ED: Denies rhinorrhea or sore throat Cardiovascular Cardiovascular: Denies chest pain, orthopnea or racing heartbeat Respiratory/Chest Respiratory/Chest: Denies cough, dyspnea, dyspnea on exertion, orthopnea or sputum Gastrointestinal Gastrointestinal: Reports nausea; Denies abdominal pain, diarrhea or vomiting Genitourinary Genitourinary ED: Denies dysuria, hematuria or urinary frequency Musculoskeletal Musculoskeletal: Denies arthralgias, back pain, myalgias or neck pain Integumentary Denies abscess, Abrasions or rash Neurologic Neurologic: Reports headache(s); Denies weakness Psychiatric Psychiatric: Denies anxiety, depression or suicidal thoughts Endocrine Endocrinology: Denies polydipsia, polyphagia or polyuria Hematologic/Lymphatic Hematologic/Lymphatic: Denies easy bleeding, easy bruising or lymphadenopathy Allergic/Immunologic Allergic/Immunologic ED: Denies mouth swelling, tongue swelling or urticaria EXAM Physical Exam Const Vital Signs: 08/16/23 12:09 Temperature 96.2 F L Temperature Source Temporal Pulse Rate 75 Respiratory Rate 20 H Blood Pressure 161/111 H Blood Pressure Mean 127 Pulse Ox 99 Oxygen Delivery Method Room Air Positive well nourished and well developed General Appearance ED: well developed and NAD HEENT Reports TM's clear and moist mucous membranes normocephalic and atraumatic; Negative for trauma or tenderness Tympanic Membrane ED: Yes TM's clear Eyes PERRL and EOMs intact bilaterally General Eye ED: Negative for pale conjunctiva or scleral icterus Neck no lymphadenopathy, supple and no JVD General: Negative for tenderness Chest Wall inspection of chest normal and palpation of chest normal Chest: Negative for tenderness Resp normal respiratory effort and clear to auscultation bilaterally Effort and Inspection: Negative for respiratory distress or pain with movement Auscultation: Negative for rhonchi, wheezes or diminished lung sounds Cardio regular rate, regular rhythm, S1 normal heart sound, S2 normal heart sound and no murmurs Peripheral Pulses: pulses 2+ throughout GI normal to inspection, nondistended, normoactive bowel sounds, soft to palpation, non-tender, non-distended and no masses Back/Spine no CVA tenderness and no thoracic nor lumbar tenderness Extremity normal to inspection General Extremety ED: Negative for edema General Extremity: Negative for edema Neuro oriented x3, CN's II-XII intact bilaterally, no sensory deficits noted and gait normal Neuro Narrative: .Finger-nose and heel rodgers testing within normal limits Hallpike maneuver negative for nystagmus. Sensorium / Orientation: awake, alert, oriented to person, oriented to place and oriented to time Motor Exam: strength 5/5 throughout and strength abnormal Psych mental status grossly normal Skin no rashes or lesions noted and no wounds MDM MDM MDM Narrative Medical decision making narrative: Patient presents to the emergency department with headache and dizziness since falling and hitting her head yesterday. Initially seen in the emergency department yesterday and had CT scan of the brain as well as C-spine which did not show any acute injury. Patient states that she had a headache that was manageable until this morning around 4:00 when she had a more severe headache so she comes in for evaluation. CT scan of the brain without contrast was repeated to rule out delayed intracranial hemorrhage which was negative for bleeding or traumatic injury. Patient had an IV line established and was given Toradol as well as morphine and Zofran and she had good improvement with that. Patient was able to ambulate with her walker to the bathroom and back. I offered her admission for symptom control but she would prefer to go home. I will write her prescription for few [place] for pain. Advised to follow-up with her primary care physician within next 3 to 5 days. I suspect likely concussion syndrome. Radiography Diagnostic Testing: Clinical Impression(s) from Imaging Studies Brain CT 08/16/23 13:03 IMPRESSION: Chronic involutional changes of the brain. Electronically Signed: Antoine Recinos MD at 13:35 EST , Discharge Plan Triage Chief Complaint: Head Injury ED Provider: Mis Arrington Dx/Rx/DC Orders Clinical Impression: Concussion, Headache, Neck pain Instructions: ED Concussion, ED Head Injury (Adult), ED Neck Pain Prescriptions: New hydrocodone-acetaminophen [hydrocodone-acetaminophen] 5-325 mg tablet 1 tab PO Q4H PRN PRN (Reason: Pain) 2 Days Qty: 10 0RF No Action calcium carbonate [Calci-Chew] 500 mg calcium (1,250 mg) tablet,chewable 500 mg PO DAILY methylphenidate HCl [Ritalin] 5 mg tablet 5 mg PO DAILY PRN (Reason: Anxiety) gabapentin 300 MG capsule 300 mg PO QHS gabapentin 100 MG capsule 100 mg PO BIDCM Patient Comments: WITH BREAKFAST AND LUNCH baclofen 10 mg tablet 10 mg PO TID alendronate 35 MG tablet 35 mg PO TOBIAS cholecalciferol (vitamin D3) 2,000 UNIT tablet 2,000 unit PO DAILY fluticasone propionate 1 SPRAY spray,suspension 1 spray NASAL DAILY ocrelizumab 300 MG/10 ML solution 300 mg IV .TWICE YEARLY Rx Instructions: NEXT DOSE 06/04/20 doxycycline monohydrate 50 mg Capsule 50 mg PO DAILY ammonium lactate 12 % cream 1 applic topical DAILY PRN (Reason: dry skin) ondansetron [ondansetron] 4 mg tablet,disintegrating 4 mg PO Q8H PRN PRN (Reason: Nausea) Qty: 10 0RF estradiol [Estrace] 0.01 % (0.1 mg/gram) cream See Rx Instructions VAGINAL .COMPLEX Qty: 42.5 2RF Rx Instructions: pea sized amount VAGINAL 3 nights per week Primary Care Provider: Meghna Gregory Referrals: Meghna Gregory DO [Primary Care Provider] - 3-5 Days Disposition Disposition: Home, Self Care
[2023-08-16] MEDS: Morphine 4 MG/ML Syringe IV (15:19)
[2023-08-16] MEDS: proCHLORPERazine 10 MG/2 ML Vial IV (15:19)
[2023-08-16] MEDS: Ketorolac 15 MG/ML Vial IV (15:19)
[2023-08-16 16:18] VITALS: BP 106/80; PULSE 70; RESP 18
== END 2023-08-16 16:19 | disposition home or self-care (01) ==
PROVIDERS: Emergency Provider Emergency Medicine; PCP Internal Medicine; Visit Provider Emergency Medicine
DX: S06.0X0A Concussion without loss of consciousness, initial encounter (principal); G35 Multiple sclerosis; M54.2 Cervicalgia; I10 Essential (primary) hypertension; W10.9XXA Fall (on) (from) unspecified stairs and steps, initial encounter
CPT/HCPCS: 70450; 96374; 96375; 99284; A4216

== ENCOUNTER 2024-01-12 08:07 | Day surgery (SDC) | payer MEDICARE, SELFPAY ==
[2024-01-12] VITALS (7 sets, daily range): BP systolic 87–114; BP diastolic 54–72; PULSE 68–93; RESP 16; TEMP 36.4–37; O2SAT 97–100; BMI 19.3
[2024-01-12] MEDS: Lactated Ringers 1,000 ML 15 ML IV (08:49)
--- NOTE | 2024-01-12 08:55 | H&P.OPEN ---
HPI - General HPI Narrative STANTON BLEVINS, is a 68 F who presents for surveillance colonoscopy. Patient had diverticulitis and had colon resection back in 2019. After I resected the sigmoid colon I performed a colonoscopy and found to adenomas in the rectum. These were large and removed and came back as tubular adenomas and she was recommended to repeat in 3 years. She has not had any issues since her colon resection. She denies any abdominal pain or blood in the stool. [facility] Medical History (Updated 01/12/24 @ 08:[address] Dionte Alva MD) Arthritis Back pain Diverticulitis of large intestine with abscess Easy bruising History of adenomatous polyp of colon History of diverticulitis History of multiple sclerosis HTN (hypertension) Leg cramps Low iron Migraine headache Multiple sclerosis Non-smoker Osteoarthritis Osteoporosis Peritonitis (acute) generalized Sepsis Sinus tachycardia by electrocardiogram Thyroid nodule Wears glasses Home Medications gabapentin 100 mg capsule 100 mg PO BIDCM nerve pain 01/30/17 [History Last Taken 01/23/20] gabapentin 300 mg capsule 300 mg PO QHS MS 01/30/17 [History Last Taken 01/11/24] cholecalciferol (vitamin D3) 50 mcg (2,000 unit) tablet 2,000 unit PO DAILY bone health 06/06/19 [History Last Taken 01/11/24] calcium carbonate (Calci-Chew) 500 mg PO DAILY 10/07/19 [History Last Taken Unknown] fluticasone propionate 50 mcg/actuation nasal spray,suspension 1 spray NASAL DAILY 04/30/20 [History Last Taken 01/11/24] ocrelizumab 30 mg/mL intravenous solution 300 mg IV .TWICE YEARLY MS 04/30/20 [History Last Taken Unknown] baclofen 10 mg tablet 10 mg PO TID MS 03/07/22 [History Last Taken Unknown] methylphenidate HCl 5 mg tablet (Ritalin) 5 mg PO DAILY PRN MULTIPLE SCLEROSIS FATIGUE 03/07/22 [History Last Taken Unknown] estradiol 0.01% (0.1 mg/gram) vaginal cream (Estrace) See Rx Instructions vaginal .COMPLEX #42.5 grams 07/14/22 [Rx Last Taken Unknown] ammonium lactate 12 % topical cream 1 applic topical DAILY PRN dry skin 07/31/23 [History Last Taken 01/12/24] denosumab 60 mg/mL subcutaneous syringe (Prolia) 60 mg subcut [id number] 11/15/23 [History Last Taken Unknown] doxycycline monohydrate 50 mg capsule 50 mg PO DAILY PRN ROSACEA 11/15/23 [History Last Taken Unknown] ferrous sulfate 325 mg (65 mg iron) tablet 325 mg PO .MON,Mon11/15/23 [History Last Taken 01/05/24] apremilast 30 mg tablet (Otezla) 30 mg PO DAILY 01/12/24 [History Last Taken 01/11/24] Allergy/AdvReac Type Severity Reaction Status Date / Time Sulfa (Sulfonamide Allergy Intermediate Hives Verified 01/12/24 08:38 Antibiotics) Family History Mother Thyroid disorder Grandfather Colon cancer Daughter Cancer skin Other Diabetes Surgical History History of appendectomy History of colonoscopy (~2013) History of tonsillectomy History of tubal ligation Status post colectomy Social History household members: spouse number of children: 2 current occupational status: retired history of recent travel: No sexually active: Yes Smoking Status: Never smoker alcohol intake: never substance use type: does not use what type of physical activity do you participate in: bicycling and aerobics frequency: daily seatbelt use: always do you feel safe at home: Yes additional social history: - Elvin Past Medical/Surgical History Planned Operation Planned Operative Procedure/s: CSCOPE S.O.S: No Previous Hospitalizations/Surgeries HX Hospitalizations: No HX of Surgeries: appendectomy, tonsillectomy 09/19-diverticulitis COLECTOMY 01/25/20 Any Problems With Anesthesia: Yes (PONV) You/Your Family Experience Fever (Hyperthermia) With Anes: No Cholinesterase deficiency: No Cardiovascular Hx Chest Pain within Last 2 months: No Hx of Irregular Heartbeat and/or Afib: No Hx Heart Attack: No Hx Congestive Heart Failure: No Hx Rheumatic Fever: No Hx Hypertension: No Hx Internal Defibrillator: No Hx Pacemaker: No Hx Cardiac Catheterization: No Hx Cardiac Surgery/Stents/Etc.: No Hx Stress Test: No Hx Pain in Legs when Walking/Leg Cramps: No Respiratory Chronic Cough: No HX of Shortness of Breath: No Hoarseness: No Hx Chronic Obstructive Pulmonary Disease (COPD): No Hx Asthma: No Hx Emphysema: No Hx Sleep Apnea: No CPAP: No BIPAP: No Hx Respiratory Tract Infection/Cold (presently): No Do You Snore Loudly (louder than talking or can be heard): No Do You Often Feel Tired/ Fatigued/ Sleepy Dring Daytime?: No Has Anyone Observed You Stop Breathing During Sleep?: No Result (for STOP score): Negative Hx Smoking: No Smoking Status: Never smoker Gastrointestinal Controlled With Meds: No Hx Gastrointestinal Disorders: Yes (DIVERTICULITIS) Hx Gastrointestinal Bleed: No Hx Ulcer: No Hx Hiatal Hernia: No Difficulty Chewing/Swallowing: No Special diet followed at home: No Hx Unplanned Weight Loss of 20#: No HX Unplanned Weight Gain of 20#: No Neurological Hx Seizures: No HX Syncope/Blackout Spells/Unconsciousness: No Hx Transient Ischemic Attacks (TIA): No Hx Multiple Sclerosis: Yes Hx Parkinson's Disease: No Hx Head/Neck Injury: Yes (arthritis in neck) Hx Headaches: No Hx Back Injury/Pain: Yes Recent Onset of Speech Difficulty: No Restless Legs: No Does patient have nerve stimulator: No Blood Disorder Hx Leukemia: No Bleeding Tendencies: No Hx Deep Vein Thrombosis: No Hx High Cholesterol: No Blood Transmitted Disease: No Hx Hepatitis: No Hx Cirrhosis: No Hx Anemia: No Hx Blood Disorders: No Reproduction : No Is Patient Lactating: No Hx Hysterectomy: No Hx Tubal Ligation: Yes Are You Post Menopause: No Genitourinary Hx Renal Disease: No Hx Dialysis: No Musculoskeletal Hx Arthritis: Yes (c-spine per pt. report) Hx Rheumatoid Arthritis: No Hx Gout: No Recent Onset of an Orthopedic Problem: No Endocrine Hx Diabetes: No Insulin: No Thyroid Disease: No Hx Steroid Therapy: Yes (PREDNISONE FOR POISON DEMARCUS) Psycho/Social Hx Substance Use: No Hx Alcohol Use: No Hx Anxiety: No Hx Depression: No Mental Illness: No Hx Dementia: No Miscellaneous Hx Cancer: No Recent Exposure to Contagious Disease: No Hx of C-Diff: No Any Loose Teeth: No Allergies Sulfa (Sulfonamide Antibiotics) Allergy (Intermediate, Verified 01/12/24 08:38) Hives Discharge Is Pt Admitted From a Usp, or a Long-Term: No After D/C, Where Do you Plan to Go: Return Home From the [facility] History Number of Risk Factors: 2 Vital Signs Vital Signs Vital Signs: 01/12/24 08:41 01/12/24 08:41 Temperature 98.6 F Temperature Source Temporal Pulse Rate 93 Respiratory Rate 16 Respiratory Pattern Normal Blood Pressure 114/72 Blood Pressure Mean 86 Blood Pressure Source Monitor Blood Pressure Position Supine Blood Pressure Location Right Arm Pulse Ox 99 Oxygen Delivery Method Room Air Weight Weight: 95 lb 7.362 oz Body Mass Index (BMI) 19.3 Physical Exam Const alert and oriented x3 HEENT normocephalic Eyes PERRL Resp normal respiratory effort and normal air movement Cardio regular rate and regular rhythm GI soft to palpation, non-tender and non-distended Extremity normal to inspection Assessment & Plan Assessment/Plan (1) History of colon polyps: PLAN: Patient has a history of 2 large polyps in the rectum during her last colonoscopy in 2019. She was recommended to have a repeat in 3 years. She does not have any issues at this time. I explained endoscopy in detail to the patient. I explained the risks including but not limited to stroke or heart attack with anesthesia, perforation of the GI tract, bleeding, infection. I explained that any of these could necessitate further emergency surgery. The patient understands and all questions were answered sufficiently. The patient wishes to proceed with procedure. Dionte Alva MD Pager: [facility] [address] [place] [address] [address] [place] [address] Office: Surgery Risks - Colonoscopy Risks Include but are not Limited To: Risks include but are not limited to: Bleeding, perforation requiring further surgery, inability to complete colonoscopy requiring barium enema.
--- NOTE | 2024-01-12 09:28 | OP.CCLET_ITS ---
01/12/2024 Meghna Gregory [address] [place] [address] Re : Colonoscopy procedure for Monse Artis Dear Dr. Gregory This procedure was performed on Friday, January 12, 2024. My impressions and recommendations are as follows: Impressions : - The entire examined colon is normal on direct and retroflexion views. - No specimens collected. Recommendations : - Discharge patient to home. - Resume previous diet. - Continue present medications. - Repeat colonoscopy in 5 years for surveillance. My findings are described in the full procedure note, which is enclosed. If I can be of further assistance, please feel free to contact me at Doctor phone number(s): , Work: . Sincerely, Dionte Alva MD 01/12/2024 9:27:42 AM This report has been signed electronically.
--- NOTE | 2024-01-12 09:28 | OP.COLON_ITS ---
Patient Name: Monse Artis Procedure Date: 01/12/2024 9:00 AM Date of : 1955 Age: 68 Procedure: Colonoscopy Indications: High risk colon cancer surveillance: Personal history of colonic polyps Providers: Dionte Alva MD Medicines: Propofol per Anesthesia Patient Profile: This is a 68 year old female. Refer to note in patient chart for documentation of history and physical. Last Colonoscopy: 3 years ago. Complications: No immediate complications. Procedure: Pre-Anesthesia Assessment: - Prior to the procedure, a History and Physical was performed, and patient medications and allergies were reviewed. The patient's tolerance of previous anesthesia was also reviewed. The risks and benefits of the procedure and the sedation options and risks were discussed with the patient. All questions were answered, and informed consent was obtained. Prior Anticoagulants: The patient has taken no anticoagulant or antiplatelet agents. After reviewing the risks and benefits, the patient was deemed in satisfactory condition to undergo the procedure. After I obtained informed consent, the scope was passed under direct vision. Throughout the procedure, the patient's blood pressure, pulse, and oxygen saturations were monitored continuously. The Colonoscope was introduced through the anus and advanced to the cecum, identified by appendiceal orifice and ileocecal valve. The colonoscopy was performed without difficulty. The patient tolerated the procedure well. The quality of the bowel preparation was good. The ileocecal valve, appendiceal orifice, and rectum were photographed. Scope In: 9:12:54 AM Scope Withdrawal Time 0 hours 6 minutes 37 seconds Scope Out: 9:22:46 AM Total Procedure Duration Time 0 hours 9 minutes 52 seconds Findings: The entire examined colon appeared normal on direct and retroflexion views. Impression: - The entire examined colon is normal on direct and retroflexion views. - No specimens collected. Recommendation: - Discharge patient to home. - Resume previous diet. - Continue present medications. - Repeat colonoscopy in 5 years for surveillance. Procedure Code(s): --- Professional --- 19515, Colonoscopy, flexible; diagnostic, including collection of specimen(s) by brushing or washing, when performed (separate procedure) Diagnosis Code(s): --- Professional --- Z86.010, Personal history of colonic polyps CPT copyright 2021 [employer]. All rights reserved. The codes documented in this report are preliminary and upon social media editor review may be revised to meet current compliance requirements. Dionte Alva MD 01/12/2024 9:27:42 AM This report has been signed electronically. Number of Addenda: 0 Note Initiated On: 01/12/2024 9:00 AM
== END 2024-01-12 10:07 | disposition home or self-care (01) ==
LOC: EN 08:09 → AC 08:09
PROVIDERS: PCP Internal Medicine; Referring Provider Internal Medicine; Visit Provider Surgery
PROC: 0DJD8ZZ Inspection of Lower Intestinal Tract, Via Natural or Artificial Opening Endoscopic (ICD-10-PCS; CPT 45378; principal; 2024-01-12 09:10)
DX: Z12.11 Encounter for screening for malignant neoplasm of colon (principal); Z80.0 Family history of malignant neoplasm of digestive organs; Z86.010 Personal history of colon polyps; I10 Essential (primary) hypertension
CPT/HCPCS: G0105; J7120; J2405

== ENCOUNTER 2024-01-26 07:46 | Outpatient (CLI) | payer MEDICARE, SELFPAY ==
[2024-01-26 08:06] VITALS: BP 94/51; PULSE 86; RESP 16; TEMP 35.6; O2SAT 97; BMI 19.8
[2024-01-26] MEDS: DiphenhydrAMINE 50 MG/ML Syringe 12.5 MG IV (08:17)
[2024-01-26] MEDS: MethylPREDNISolone 125 MG/2 ML Vial 100 MG IV (08:17)
[2024-01-26] MEDS: Ocrelizumab 600mg Infusion 40 MG IV (08:48)
== END 2024-01-26 07:47 | disposition home or self-care (01) ==
LOC: MEDOUTP 07:46
PROVIDERS: PCP Internal Medicine; Referring Provider Psychiatry & Neurology Neurology; Visit Provider Psychiatry & Neurology Neurology
DX: G35 Multiple sclerosis (principal)
CPT/HCPCS: 96365; 96366; 96375; J7040; J7050; A4216; J2350

== ENCOUNTER → 2024-02-28 | Outpatient (CLI) | payer MEDICARE, SELFPAY ==
[2024-02-28 12:33] LABS: Absolute Lymphocyte Count 1.27 X10^3/uL (0.83-4.51); Absolute Neutrophil Count 6.1 X10^3/uL (2.0-7.7); Basophil# 0.06 X10^3/uL; Basophil% 0.7 % (0-1); Eosinophil# 0.31 X10^3/uL; Eosinophils% 3.6 % (0-5); Hematocrit 40.8 % (37-47); Lymphocyte # 1.27 X10^3/ul (0.83-4.51); Lymphocyte % 14.6 % (19-41); Mean Corp Hgb Conc 31.9 g/dL (32-36); Mean Corpuscular Volume 94.2 fL (81-99); Mean Platelet Vol. 8.7 fl (6.2-12.0); Monocyte# 0.86 X10^3/uL; Monocyte% 9.9 % (0-10); NRBC Flagged by Analyzer 0 % (0-5); Neutrophil # 6.14 X10^3/uL (2.7-7.7); Neutrophil % 70.7 % (47-70); Platelet Count 514 K/mm3 (150-450); RBC Distribution Width CV 12.8 % (11.6-14.6); RBC Distribution Width SD 44.2 fl (35.1-43.9); Red Blood Count 4.33 M/mm3 (4.2-5.4); White Blood Count 8.7 K/mm3 (4.4-11.0)
[2024-02-28 13:31] LABS: ALB/GLOB Ratio 1.2 RATIO (0.9-2.4); AST(SGOT) 24 U/L (15-37); Alanine Aminotransfer ALT/SGPT 24 U/L (13-56); Albumin, Serum 3.7 g/dL (3.2-5.0); Alkaline Phosphatase 64 U/L (45-117); Anion Gap 6 (5-15); BUN 26 mg/dL (7-18); BUN/Creat Ratio 28.4 RATIO (10-20); Calcium,Total 9.8 mg/dL (8.5-10.1); Chloride 105 mmol/L (98-107); Creatinine, Serum 0.92 mg/dL (0.55-1.02); EST Glomerular Filtration Rate 65 mL/min (>60); Est Glom Filt Rate - Afr Amer 78 mL/min (>60); Glucose 89 mg/dL (74-106); Potassium 4.5 mmol/L (3.5-5.1); Protein, Total 6.7 g/dL (6.4-8.2); Sodium Level 139 mmol/L (136-145)
== END | disposition home or self-care (01) ==
LOC: MTLAB 10:34
PROVIDERS: PCP Internal Medicine; Referring Provider Dermatology; Visit Provider Dermatology
DX: D69.2 Other nonthrombocytopenic purpura (principal); L30.8 Other specified dermatitis; L71.8 Other rosacea; L40.0 Psoriasis vulgaris; Z79.899 Other long term (current) drug therapy
CPT/HCPCS: 36415; 80053; 85025

== ENCOUNTER → 2024-03-22 | Outpatient (CLI) | payer MEDICARE, SELFPAY ==
--- NOTE | 2024-03-22 09:57 | US_ITS ---
STUDY: ABDOMINAL ULTRASOUND -left lower QUADRANT REASON FOR VISIT: Female, 69 years old Soft tissue mass -- soft tissue mass on abdomen left lower TECHNIQUE: Ultrasound evaluation of the right upper quadrant was performed with real-time and static santana-scale imaging. TECHNICAL QUALITY: Adequate. COMPARISON: CT of the abdomen and pelvis January 23, 2020 FINDINGS: Elevation of the left lower quadrant demonstrates a very small solid nodule measuring 1.2 x 1.2 x .8 mm mm with distal acoustic shadowing in the subcutaneous fat consistent with nonspecific focus of calcification retrospectively present on prior exam in January 2020 US/Abdomen Limited IMPRESSION: Tiny focal calcific density in the subcutaneous fat of left lower quadrant of uncertain etiology likely benign. This may be further assessed with MRI if clinically warranted Electronically Signed: Blayne Stover MD at 17:58 EDT ,
== END | disposition home or self-care (01) ==
PROVIDERS: PCP Internal Medicine; Referring Provider Nurse Practitioner Women's Health; Visit Provider Nurse Practitioner Women's Health
DX: M79.89 Other specified soft tissue disorders (principal)
CPT/HCPCS: 76705

== ENCOUNTER → 2024-04-09 | Outpatient (CLI) | payer MEDICARE, SELFPAY ==
--- NOTE | 2024-04-09 07:15 | BI_ITS ---
MAMMOGRAPHY - BILATERAL SCREENING REASON FOR EXAM: Female, 69 years old. Routine annual screening examination. PERTINENT HISTORY: Non-contributory. TECHNIQUE: Digital bilateral breast marciano (3D mammographic acquisition) in the CC and MLO projections. 2-D mediolateral oblique (MLO) and craniocaudad (CC) views of both breasts were obtained. CAD: Full Field Digital Mammography with Computer Added Detection was performed. COMPARISON: Comparison is made with prior study dated April 06, 2023 and March 31, 2022. FINDINGS: Breast Composition: The breasts are heterogeneously dense, which may obscure small masses. There are no dominant masses or suspicious calcifications. Stable small benign-appearing bilateral axillary lymph nodes. No other significant abnormalities are identified. There has been no significant change since the prior study. BI/SCRN MAMM (CAD)W/MARCIANO BILAT IMPRESSION: Stable bilateral screening mammogram. Yearly follow-up mammogram recommended. (A) ASSESSMENT CATEGORY: BIRADS Category 2: Benign. A letter regarding these results will be sent to the patient by the facility within 30 days. Approximately 10% of breast cancers are not detected by mammography. A normal mammogram should not delay biopsy of a clinically suspicious abnormality. [id number] Electronically Signed: Antoine Recinos MD at 8:45 EDT ,
== END | disposition home or self-care (01) ==
LOC: OPBI 07:15
PROVIDERS: PCP Internal Medicine; Referring Provider Nurse Practitioner Women's Health; Visit Provider Nurse Practitioner Women's Health
DX: Z12.31 Encounter for screening mammogram for malignant neoplasm of breast (principal)
CPT/HCPCS: 77063; 77067

== ENCOUNTER → 2024-05-15 | Outpatient (CLI) | payer MEDICARE, SELFPAY ==
[2024-05-15 17:39] LABS: Absolute Lymphocyte Count 1.72 X10^3/uL (0.83-4.51); Absolute Neutrophil Count 4.9 X10^3/uL (2.0-7.7); Basophil# 0.06 X10^3/uL; Basophil% 0.8 % (0-1); Eosinophil# 0.14 X10^3/uL; Eosinophils% 1.9 % (0-5); Hematocrit 42.4 % (37-47); Hemoglobin 13.7 g/dL (12.0-15.0); Lymphocyte # 1.72 X10^3/ul (0.83-4.51); Mean Corp Hgb Conc 32.3 g/dL (32-36); Mean Corpuscular Hgb 30.4 pg (27.0-32.0); Mean Platelet Vol. 8.6 fl (6.2-12.0); Monocyte# 0.69 X10^3/uL; Monocyte% 9.2 % (0-10); NRBC Flagged by Analyzer 0 % (0-5); Neutrophil # 4.85 X10^3/uL (2.7-7.7); Neutrophil % 64.8 % (47-70); Platelet Count 449 K/mm3 (150-450); RBC Distribution Width CV 13.2 % (11.6-14.6); RBC Distribution Width SD 45.7 fl (35.1-43.9); Red Blood Count 4.51 M/mm3 (4.2-5.4); White Blood Count 7.5 K/mm3 (4.4-11.0)
[2024-05-15 17:44] LABS: Erythrocyte Sedimentation Rate 12 mm/hr (0-30)
[2024-05-15 18:15] LABS: ALB/GLOB Ratio 1.2 RATIO (0.9-2.4); AST(SGOT) 30 U/L (15-37); Alanine Aminotransfer ALT/SGPT 26 U/L (13-56); Albumin, Serum 3.6 g/dL (3.2-5.0); Alkaline Phosphatase 62 U/L (45-117); Anion Gap 6 (5-15); BUN 18 mg/dL (7-18); BUN/Creat Ratio 20.8 RATIO (10-20); CRP < 2.90 mg/L (0.0-3.0); Chloride 105 mmol/L (98-107); Creatinine, Serum 0.86 mg/dL (0.55-1.02); EST Glomerular Filtration Rate 69 mL/min (>60); Est Glom Filt Rate - Afr Amer 84 mL/min (>60); Globulin 3.1 g/dL (2.2-4.2); Glucose 91 mg/dL (74-106); Potassium 3.8 mmol/L (3.5-5.1); Protein, Total 6.7 g/dL (6.4-8.2); Rheumatoid Factor < 10.0 IU/mL (<15); Sodium Level 141 mmol/L (136-145)
[2024-05-15 19:15] LABS: Hepatitis B Surface Antibody Non-Reactive; Hepatitis B Surface Antigen Non-Reactive (Nonreactive); Hepatitis C Antibody Non-Reactive (Nonreactive)
[2024-05-17 13:42] LABS: CCP IgG Antibodies 4 units (0-19)
[2024-05-20 10:07] LABS: Anti-Nuclear Antibody Test Negative (.)
== END | disposition home or self-care (01) ==
PROVIDERS: PCP Internal Medicine; Referring Provider Internal Medicine Rheumatology; Visit Provider Internal Medicine Rheumatology
DX: L40.59 Other psoriatic arthropathy (principal); G35 Multiple sclerosis; L40.8 Other psoriasis; M47.892 Other spondylosis, cervical region; M81.0 Age-related osteoporosis without current pathological fracture
CPT/HCPCS: 36415; 80053; 85025; 85652; 86038; 86140; 86200; 86431; 86706; 86803; 87340

== ENCOUNTER → 2024-07-04 | Outpatient (CLI) | payer MEDICARE, SELFPAY ==
[2024-07-04 12:15] LABS: Absolute Lymphocyte Count 2.03 X10^3/uL (0.83-4.51); Absolute Neutrophil Count 5.1 X10^3/uL (2.0-7.7); Basophil# 0.07 X10^3/uL; Basophil% 0.9 % (0-1); Eosinophil# 0.16 X10^3/uL; Hematocrit 41.9 % (37-47); Hemoglobin 13.3 g/dL (12.0-15.0); Lymphocyte # 2.03 X10^3/ul (0.83-4.51); Lymphocyte % 24.9 % (19-41); Mean Corp Hgb Conc 31.7 g/dL (32-36); Mean Corpuscular Hgb 29.6 pg (27.0-32.0); Mean Corpuscular Volume 93.1 fL (81-99); Mean Platelet Vol. 8.3 fl (6.2-12.0); Monocyte# 0.81 X10^3/uL; Monocyte% 9.9 % (0-10); NRBC Flagged by Analyzer 0 % (0-5); Neutrophil # 5.05 X10^3/uL (2.7-7.7); Neutrophil % 61.8 % (47-70); Platelet Count 472 K/mm3 (150-450); RBC Distribution Width CV 13.3 % (11.6-14.6); RBC Distribution Width SD 44.9 fl (35.1-43.9); White Blood Count 8.2 K/mm3 (4.4-11.0)
[2024-07-04 13:13] LABS: ALB/GLOB Ratio 1.2 RATIO (0.9-2.4); AST(SGOT) 25 U/L (15-37); Alanine Aminotransfer ALT/SGPT 24 U/L (13-56); Albumin, Serum 3.6 g/dL (3.2-5.0); Alkaline Phosphatase 55 U/L (45-117); Anion Gap 4 (5-15); BUN 24 mg/dL (7-18); BUN/Creat Ratio 28.3 RATIO (10-20); Chloride 106 mmol/L (98-107); Creatinine, Serum 0.85 mg/dL (0.55-1.02); EST Glomerular Filtration Rate 71 mL/min (>60); Est Glom Filt Rate - Afr Amer 85 mL/min (>60); Globulin 2.9 g/dL (2.2-4.2); Glucose 103 mg/dL (74-106); Protein, Total 6.5 g/dL (6.4-8.2); Sodium Level 138 mmol/L (136-145)
== END | disposition home or self-care (01) ==
PROVIDERS: PCP Internal Medicine; Referring Provider Internal Medicine Rheumatology; Visit Provider Internal Medicine Rheumatology
DX: L40.59 Other psoriatic arthropathy (principal); Z79.899 Other long term (current) drug therapy; L40.8 Other psoriasis
CPT/HCPCS: 36415; 80053; 85025

== ENCOUNTER 2024-07-26 07:50 | Outpatient (CLI) | payer MEDICARE, SELFPAY ==
[2024-07-26 08:12] VITALS: BP 106/46; PULSE 50; RESP 14; TEMP 36.3; O2SAT 93; BMI 19.8
[2024-07-26] MEDS: MethylPREDNISolone 125 MG/2 ML Vial 100 MG IV (08:15)
[2024-07-26] MEDS: DiphenhydrAMINE 50 MG/ML Syringe 25 MG IV (08:37)
[2024-07-26] MEDS: Ocrelizumab 600mg Infusion 40 MG IV (09:12)
== END 2024-07-26 23:59 | disposition home or self-care (01) ==
LOC: MEDOUTP 07:50
PROVIDERS: PCP Internal Medicine; Referring Provider Psychiatry & Neurology Neurology; Visit Provider Psychiatry & Neurology Neurology
DX: G35 Multiple sclerosis (principal)
CPT/HCPCS: 96365; 96366; 96375; J7040; J7050; A4216; J2350

== ENCOUNTER → 2024-09-02 | Outpatient (CLI) | payer MEDICARE, SELFPAY ==
[2024-09-02 12:30] LABS: Absolute Lymphocyte Count 1.66 X10^3/uL (0.83-4.51); Absolute Neutrophil Count 5.9 X10^3/uL (2.0-7.7); Basophil# 0.06 X10^3/uL; Basophil% 0.7 % (0-1); Eosinophil# 0.21 X10^3/uL; Eosinophils% 2.4 % (0-5); Hematocrit 41.5 % (37-47); Hemoglobin 13.1 g/dL (12.0-15.0); Lymphocyte # 1.66 X10^3/ul (0.83-4.51); Lymphocyte % 18.8 % (19-41); Mean Corp Hgb Conc 31.6 g/dL (32-36); Mean Corpuscular Hgb 30.5 pg (27.0-32.0); Mean Corpuscular Volume 96.5 fL (81-99); Mean Platelet Vol. 8.7 fl (6.2-12.0); Monocyte# 0.97 X10^3/uL; NRBC Flagged by Analyzer 0 % (0-5); Neutrophil # 5.91 X10^3/uL (2.7-7.7); Neutrophil % 66.8 % (47-70); Platelet Count 433 K/mm3 (150-450); RBC Distribution Width CV 14.5 % (11.6-14.6); RBC Distribution Width SD 50.4 fl (35.1-43.9); White Blood Count 8.8 K/mm3 (4.4-11.0)
[2024-09-02 12:54] LABS: ALB/GLOB Ratio 1.3 RATIO (0.9-2.4); AST(SGOT) 31 U/L (15-37); Alanine Aminotransfer ALT/SGPT 34 U/L (13-56); Albumin, Serum 3.7 g/dL (3.2-5.0); Alkaline Phosphatase 66 U/L (45-117); Anion Gap 4 (5-15); BUN 19 mg/dL (7-18); BUN/Creat Ratio 22.9 RATIO (10-20); Chloride 106 mmol/L (98-107); Creatinine, Serum 0.83 mg/dL (0.55-1.02); EST Glomerular Filtration Rate 72 mL/min (>60); Est Glom Filt Rate - Afr Amer 88 mL/min (>60); Globulin 2.9 g/dL (2.2-4.2); Glucose 114 mg/dL (74-106); Potassium 4.5 mmol/L (3.5-5.1); Protein, Total 6.6 g/dL (6.4-8.2); Sodium Level 139 mmol/L (136-145)
== END | disposition home or self-care (01) ==
PROVIDERS: PCP Internal Medicine; Referring Provider Internal Medicine Rheumatology; Visit Provider Internal Medicine Rheumatology
DX: L40.59 Other psoriatic arthropathy (principal); Z79.899 Other long term (current) drug therapy; L40.8 Other psoriasis
CPT/HCPCS: 36415; 80053; 85025

== ENCOUNTER → 2024-11-01 | Outpatient (CLI) | payer MEDICARE, SELFPAY ==
[2024-11-01 16:14] LABS: Absolute Lymphocyte Count 2.03 X10^3/uL (0.83-4.51); Absolute Neutrophil Count 6.9 X10^3/uL (2.0-7.7); Basophil# 0.07 X10^3/uL; Basophil% 0.7 % (0-1); Eosinophil# 0.13 X10^3/uL; Eosinophils% 1.3 % (0-5); Hemoglobin 12.7 g/dL (12.0-15.0); Lymphocyte # 2.03 X10^3/ul (0.83-4.51); Lymphocyte % 20.1 % (19-41); Mean Corp Hgb Conc 32.6 g/dL (32-36); Mean Corpuscular Hgb 31.7 pg (27.0-32.0); Mean Corpuscular Volume 97.3 fL (81-99); Mean Platelet Vol. 8.6 fl (6.2-12.0); Monocyte# 0.92 X10^3/uL; Monocyte% 9.1 % (0-10); NRBC Flagged by Analyzer 0 % (0-5); Neutrophil # 6.91 X10^3/uL (2.7-7.7); Neutrophil % 68.5 % (47-70); Platelet Count 477 K/mm3 (150-450); RBC Distribution Width CV 14.4 % (11.6-14.6); RBC Distribution Width SD 50.2 fl (35.1-43.9); Red Blood Count 4.01 M/mm3 (4.2-5.4); White Blood Count 10.1 K/mm3 (4.4-11.0)
[2024-11-01 17:07] LABS: ALB/GLOB Ratio 1.2 RATIO (0.9-2.4); AST(SGOT) 21 U/L (15-37); Alanine Aminotransfer ALT/SGPT 29 U/L (13-56); Albumin, Serum 3.7 g/dL (3.2-5.0); Alkaline Phosphatase 60 U/L (45-117); Anion Gap 4 (5-15); BUN 20 mg/dL (7-18); BUN/Creat Ratio 24.1 RATIO (10-20); Calcium,Total 9.6 mg/dL (8.5-10.1); Chloride 106 mmol/L (98-107); Creatinine, Serum 0.83 mg/dL (0.55-1.02); EST Glomerular Filtration Rate 72 mL/min (>60); Est Glom Filt Rate - Afr Amer 88 mL/min (>60); Glucose 96 mg/dL (74-106); Potassium 4.1 mmol/L (3.5-5.1); Protein, Total 6.7 g/dL (6.4-8.2); Sodium Level 139 mmol/L (136-145)
== END | disposition home or self-care (01) ==
LOC: MTLAB 13:37
PROVIDERS: PCP Internal Medicine; Referring Provider Internal Medicine Rheumatology; Visit Provider Internal Medicine Rheumatology
DX: L40.59 Other psoriatic arthropathy (principal); Z79.899 Other long term (current) drug therapy; L40.8 Other psoriasis
CPT/HCPCS: 36415; 80053; 85025

== ENCOUNTER → 2025-02-03 | Outpatient (CLI) | payer MEDICARE, SELFPAY ==
[2025-02-03 12:34] LABS: Absolute Lymphocyte Count 1.46 X10^3/uL (0.83-4.51); Absolute Neutrophil Count 7.7 X10^3/uL (2.0-7.7); Basophil# 0.04 X10^3/uL; Basophil% 0.4 % (0-1); Eosinophil# 0.09 X10^3/uL; Eosinophils% 0.9 % (0-5); Hematocrit 40.3 % (37-47); Hemoglobin 13.2 g/dL (12.0-15.0); Lymphocyte # 1.46 X10^3/ul (0.83-4.51); Lymphocyte % 14.6 % (19-41); Mean Corp Hgb Conc 32.8 g/dL (32-36); Mean Corpuscular Hgb 31.7 pg (27.0-32.0); Mean Corpuscular Volume 96.6 fL (81-99); Mean Platelet Vol. 8.6 fl (6.2-12.0); Monocyte# 0.67 X10^3/uL; Monocyte% 6.7 % (0-10); NRBC Flagged by Analyzer 0 % (0-5); Neutrophil # 7.74 X10^3/uL (2.7-7.7); Neutrophil % 77.1 % (47-70); Platelet Count 426 K/mm3 (150-450); RBC Distribution Width SD 48.8 fl (35.1-43.9); Red Blood Count 4.17 M/mm3 (4.2-5.4)
[2025-02-03 12:42] LABS: ALB/GLOB Ratio 1.8 RATIO (0.9-2.4); AST(SGOT) 30 U/L (<=31); Alanine Aminotransfer ALT/SGPT 24 U/L (<=34); Albumin, Serum 4.1 g/dL (3.4-4.8); Alkaline Phosphatase 61 U/L (35-104); Anion Gap 9 (5-15); BUN 22 mg/dL (4-19); Calcium,Total 9.9 mg/dL (7.6-11.0); Chloride 103 mmol/L (98-108); Creatinine, Serum 0.84 mg/dL (0.70-1.20); EST Glomerular Filtration Rate 75 (>60); Globulin 2.3 g/dL (2.2-4.2); Glucose 119 mg/dL (70-99); Potassium 4.3 mmol/L (3.3-5.1); Protein, Total 6.4 g/dL (5.9-8.4); Sodium Level 140 mmol/L (133-145); Total Bilirubin 0.42 mg/dL (0.00-1.30)
== END | disposition home or self-care (01) ==
LOC: MTLAB 09:51
PROVIDERS: PCP Internal Medicine; Referring Provider Internal Medicine Rheumatology; Visit Provider Internal Medicine Rheumatology
DX: L40.59 Other psoriatic arthropathy (principal); Z79.899 Other long term (current) drug therapy
CPT/HCPCS: 36415; 80053; 85025

== ENCOUNTER → 2025-03-29 | Outpatient (CLI) | payer MEDICARE, SELFPAY ==
--- NOTE | 2025-03-29 11:22 | US_ITS ---
PROCEDURE: THYROID 03/29/2025 REASON FOR EXAM: NODULE TECHNIQUE: THYROID COMPARISON: Thyroid ultrasound on 03/24/2023 FINDINGS: Right thyroid lobe size: 4.7 x 1.7 x 1.2 cm Left thyroid lobe size: 3.7 x 0.7 x 0.8 cm Isthmus: 0.1 cm Background parenchymal echotexture is homogeneous. Nodules: 1. Lobe: Right, Location: Mid to upper, Size: 1.4 x 0.8 x 0.9 cm, Stability: Minimally larger Composition: Mixed cystic and solid (+1) Echogenicity: Hyper to Isoechoic (+1) Margin: Smooth (+0) Shape: Wider than tall (+0) Echogenic Foci: None (+0) TI-RADS: 2 2. Lobe: Right, Location: Mid to lower, Size: 0.2 x 0.2 x 0.3 cm, Stability: Stable Composition: Cystic or mostly cystic (+0) Echogenicity: Anechoic (+0) Margin: Smooth (+0) Shape: Wider than tall (+0) Echogenic Foci: None (+0) TI-RADS: 1 US/Thyroid IMPRESSION: There are a few thyroid nodules, which do not require continued follow-up or FN A per ACR TI-RADS guidelines. Reading Location: [facility]
--- OUTSIDE RECORDS SUMMARY | 2025-03-29 11:25 | XMS RPT_ITS | CCD ---
Author Organization [facility] Care Team Providers Care Organizational Psychologist Name Role Phone Meghna Gregory Unavailable Mary Roman Unavailable Unavailable Messenger, Pat Unavailable Unavailable Unavailable Unavailable Arlene Vasquez Unavailable Unavailable Meghna Gregory Unavailable Arlene Vasquez Unavailable Unavailable Gravius, Chasity Unavailable Unavailable Ciesa, Zahraa Unavailable Messenger, Pat Unavailable Unavailable Unavailable Unavailable Manju Valerio Unavailable Unavailable Gravius, Chasity Unavailable Unavailable Slarb, Nika Unavailable Unavailable Calixto Villegas Unavailable Unavailable Messenger, Pat Unavailable Unavailable Calixto Roman Unavailable Unavailable Brian Bety Unavailable Lamar Schmidt Unavailable Unavailable STACEY Lopez Unavailable Unavailable Meghna Gregory DO Unavailable Friendly, Bety Unavailable Lamar Schmidt LPN Unavailable Unavailable Calixto Roman LPN Unavailable Unavailable Gravius REFINED SYRUP OPERATOR, Chasity Unavailable Unavailable Messenger RNPat Unavailable Unavailable Ciesa KRISTA Zahraa Unavailable STACEY Lopez LPN Unavailable Unavailable Unavailable Unavailable Dr. Meghna Gregory Primary Care Provider [phone] Dr. Meghna Gregory Referring Provider Dr. Emerson Paula Attending Provider Meghna Gregory DO Unavailable CiSammi cruz Unavailable Dionte Alva Unavailable Sammi Fitzgerald Unavailable Dr. Meghna Gregory Primary Care Provider [phone] Dr. Meghna Gregory Referring Provider Brian HOSPICE CLINICAL MARKETER, HOSPICE CLINICAL MARKETER-C Bety Attending Provider Dr. Dhiraj Evans Attending Provider [phone] Meghna Gregory Primary Care Provider Dr. Meghna Gregory Referring Provider [facility], Jerald Unavailable Unavailable Bri DO, Meghna Attending Unavailable Bri , Meghna Referring Unavailable Bri , Meghna Consulting Dr. Meghna Matos Primary Care Provider [phone] Dr. Meghna Gregory Referring Provider Donna KUO, PA Ciara Parker Attending Provider Brian HOSPICE CLINICAL MARKETER, HOSPICE CLINICAL MARKETER-C Btey Attending Provider [phone] Dr. Meghna Gregory Primary Care Provider [phone] Dr. Meghna Gregory Referring Provider [phone] Dr. Dhiraj Evans Attending Provider Dr. Dhiraj Evans Referring Provider [facility] Unavailable Dr. Meghna Matos Primary Care Provider [phone] Kassandra Light Attending Provider Unavailable Dr. Meghna Gregory Referring Provider AYAAN Macario Attending Provider Dr. Dionte Alva Attending Provider [phone] Dr. Dionte Alva Other Provider Dr. Meghna Gregory DO Primary Care Provider Mara THAKKAR, Dr. Joiner Attending Provider Dr. Marisel Terry MD Referring Provider Dr. Meghna Gregory DO Primary Care Provider [phone] Mara THAKKAR, Dr. Joiner Attending Provider Mara THAKKAR, Dr. Joiner Referring Provider Dr. Meghna Gregory DO Referring Provider Bety Mcallister Attending Provider Bri, Meghna Primary Care Unavailable Vellanki, Marisel Referring Unavailable Vellanki, Marisel Attending Unavailable Bri, Meghna Primary Care Unavailable Vellanki, Marisel Referring Unavailable Vellanki, Marisel Attending Unavailable Bri, Meghna Primary Care Unavailable Vellanki, Marisel Referring Unavailable Vellanki, Marisel Attending Unavailable Bety Torres Attending Unavailable Bety Torres Referring Unavailable Bri, Meghna Primary Care Unavailable Vellanki, Marisel Attending Unavailable Vellanki, Marisel Referring Unavailable Bri, Meghna Primary Care Unavailable Bri, Meghna Primary Care Unavailable Sibilia, Huseyin V Attending Unavailable Bri, Meghna Attending Unavailable Bri, Meghna Referring Unavailable Bri, Meghna Primary Care Unavailable Bri, Meghna Attending Unavailable Bri, Meghna Referring Unavailable Bri, Meghna Primary Care Unavailable Bri, Meghna Primary Care Unavailable Bety Torres Attending Unavailable Bri, Meghna Referring Unavailable Bri, Meghna Primary Care Unavailable Vellanki, Marisel Attending Unavailable Vellanki, Marisel Referring Unavailable SalvadorEnioy Attending Unavailable Salvador, Justin Referring Unavailable Bri, Meghna Primary Care Unavailable Allergies Allergy Classification Reported Allergen(s) Allergy Type Date of Onset Reaction(s) Facility (20 sources) Sulfacetamide *CHEMICALS*; Translations: [Sulfacetamide *CHEMICALS*] drug allergy [facility] Work Phone: (18 sources) Sulfonamides (Antibiotic); Translations: [Sulfa (Sulfonamide Antibiotics)] Allergy to substance [facility] (1 source) Allergy to drug (finding) [facility]; [facility] Work Phone: (1 source) Allergy to drug (finding) [facility]; [facility] Work Phone: (1 source) Allergy to drug (finding) [facility]; [facility] Work Phone: (1 source) Allergy to drug (finding) [facility]; [facility] Work Phone: (1 source) Allergy to drug (finding) [facility]; [facility] Work Phone: (1 source) Allergy to drug (finding) [facility]; [facility] Work Phone: (1 source) Allergy to drug (finding) [facility]; [facility] Work Phone: (1 source) Allergy to drug (finding) [facility]; [facility] Work Phone: (1 source) Allergy to drug (finding) [facility]; [facility] Work Phone: (1 source) Allergy to drug (finding) [facility]; [facility] Work Phone: (1 source) Allergy to drug (finding) [facility]; [facility] Work Phone: (1 source) Allergy to drug (finding) [facility]; [facility] Work Phone: (1 source) Allergy to drug (finding) [facility]; [facility] Work Phone: (1 source) Allergy to drug (finding) [facility]; [facility] Work Phone: Medications Current Medications Medication Drug Class(es) Dates Sig (Normalized) Sig (Original) acetaminophen 325 mg / HYDROcodone bitartrate 5 mg oral tablet (1 source) Opioid Agonist Start: 08-16-2023 take 1 tablet by mouth every four hours as needed Hydrocodone-Acetam inophen Active 1 TABLET PO EVERY 4 HOURS NEEDED 07 03August 16, 2023 alendronic acid 35 mg oral tablet (20 sources) Bisphosphonate Start: 03-25-2025 take 1 tablet by mouth every week Alendronate 35 mg tablet Active 35 mg PO EVERY WEEK March 25, 2025 12:00am Start: 12-27-2018 End: 11-15-2023 Alendronate 35 MG tablet Dis continued 35 mg PO TOBIAS June 06, 2019 12:00am November 15, 2023 12:26pm calcium carbonate 1250 mg chewable tablet (17 sources) Start: 10-07-2019 take 1 tablet by mouth once daily Calcium Carbonate (Calci-Chew) 500 mg calcium (1,250 mg) tablet,chewable Active 500 mg PO DAILY October 07, 2019 1:00am cholecalciferol 0.05 mg oral tablet (20 sources) Vitamin D Start: 06-06-2019 take 1 tablet by mouth once daily Cholecalciferol (Vitamin D3) 2,000 UNIT tablet Active 2000 U PO DAILY June 06, 2019 12:00am take 1 capsule by mouth once pradeep ly Vitamin D3 2000 UNIT Oral Capsule one cap daily (2000 UNIT) Active clobetasol propionate 0.5 mg/ml topical cream (1 source) Corticosteroid Start: 03-25-2025 Clobetasol 0.0 5 % cream Active 1 NMA TOPICAL daily March 25, 2025 12:00am estradiol 0.1 mg/ml vaginal cream (20 sources) Estrogen Start: 07-14-2022 End: 01-14-2024 Estradiol (Estrace) 0.01 % (0.1 mg/gram) cream Active 0 VAGINAL .COMPLEX 42.5 January 14, 2024 7:03pm pea sized amount VAGINAL 3 nights per week Start: 07-14-2022 End: 01-14-2024 Estradiol (Estrace) 0.01 % ( 0.1 mg/gram) cream Active 0 VAGINAL .COMPLEX 42.5 January 14, 2024 7:03pm pea sized amount VAGINAL 3 nights per week Start: 08-11-2020 End: 07-14-2022 Estradiol (Estrace) 0.01 % ( 0.1 mg/gram) cream Discontinued 0 VAGINAL .COMPLEX 42.5 August 11, 2020 1:00am July 14, 2022 9:09am pea sized amount VAGINAL every other day X 4 weeks then twice a week; Start: 08-11-2020 End: 07-14-2022 Estradiol (Estrace) 0.01 % ( 0.1 mg/gram) cream Discontinued 0 VAGINAL .COMPLEX 42.5 August 11, 2020 1:00am July 14, 2022 9:09am pea sized amount VAGINAL every other day X 4 weeks then twice a week; ferrous sulfate 325 mg oral tablet (11 sources) Start: 11-15-2023 Ferrous Sulfat e 325 mg (65 mg iron) tablet Active 325 mg PO .November 15, 2023 1:00am fluticasone propionate 0.05 mg/actuat metered dose nasal spray (20 sources) Corticosteroid Start: 04-30-2020 Fluticasone Pr opionate Active 1 SPRAY NASAL DAILY April 30, 2020 12:00am Start: 08-30-2016 Fluticasone Pr opionate 1 SPRAY spray,suspension Active 1 NMA NASAL DAILY April 30, 2020 12:00am folic acid 0.8 mg oral tablet (1 source) Start: 03-25-2025 take 0.8 mg by mouth once daily Folic Acid 800 mcg tablet Active 0.8 mg PO daily March 25, 2025 12:00am gabapentin 300 mg oral capsule (20 sources) Anti-epileptic Agent Start: 01-30-2017 take 1 capsule by mouth twice daily at mealtime Gabapentin 100 MG capsule Active 100 mg PO TWICE DAILY WITH MEALS January 30, 2017 12:00am Start: 01-30-2017 take 1 capsule by mo uth at bedtime Gabapentin 300 MG capsule Active 300 mg PO AT BEDTIME January 30, 2017 12:00am Gabapentin 100 M G Oral Capsule qd (100 MG) Active Comments: 300 qhs and 100 bid take 3 capsules by m outh once daily at bedtime, then take 100 capsules by mouth twice daily Gabapentin 100 MG Oral Capsule qd (100 MG) Active Comments: 300 qhs and 100 bid Comment on above: 300 qhs and 100 bid Lactate (8 sources) Start: 03-25-2025 Ammonium Lacta te 5 % cream Active NMA TOPICAL March 25, 2025 12:00am Start: 07-31-2023 Ammonium Lacta te 12 % cream Active 1 NMA TOPICAL DAILY as needed for dry skin July 31, 2023 12:00am Methotrexate 2 mg/mL solution (2 sources) Start: 07-26-2024 take 5 mg by mouth once Methotrexate 2 mg/mL solution Active 5 mg PO .1x a week July 26, 2024 12:00am methylphenidate hydrochloride 5 mg oral tablet (20 sources) Central Nervous System Stimulant Start: 03-07-2022 take 1 tablet by mouth once daily as needed Methylphenidate Hcl (Ritalin) 5 mg tablet Active 5 mg PO DAILY as needed for MULTIPLE SCLEROSIS FATIGUE March 07, 2022 12:00am Completed/Discontinued Medications Medication Drug Class(es) Dates Sig (Normalized) Sig (Original) acetaminophen 325 mg oral tablet (17 sources) Start: 01-29-2020 End: 08-11-2020 take 2 tablets by mouth every four hours as needed for pain Acetaminophen 325 MG tablet Discontinued 650 mg PO EVERY 4 HOURS NEEDED as needed for Pain Or Fever January 29, 2020 12:00am August 11, 2020 10:16am Start: 01-29-2020 End: 08-11-2020 take 650 mg by mouth every four hours as needed Acetaminophen Discontinued 650 MG PO EVERY 4 HOURS NEEDED January 29, 2020 12:00am August 11, 2020 10:16am [id number] 200 actuat albuter ol 0.09 mg/actuat metered dose inhaler (20 sources) beta2-Adrenergic Agonist Start: 07-30-2014 End: 01-26-2015 Start: 07-30-2014 End: 01-26-2015 take 2 puff(s) by inhalation three times daily PROAIR HFA, 108 (90 Base)MCG/ACT (Inhalation Aerosol Solution) 2 (two) Puff tid for 0 days Quantity: 1 {Inhaler} Refills: 0 Ordered: 26-Jan-2015 Pat Crook RN Start : 30-Jul-2014 End : 26-Jan-2015 Inactive amantadine hydrochloride 100 mg oral capsule (20 sources) Influenza A M2 Protein Inhibitor Start: 07-25-2018 End: 09-26-2019 take 1 capsule by mouth at bedtime Amantadine Hcl 100 MG capsule Discontinued 100 mg PO AT BEDTIME July 25, 2018 12:00am September 26, 2019 3:27pm Start: 08-11-2016 End: 03-13-2018 amoxicillin 875 mg oral tablet (20 sources) Penicillin-class Antibacterial Start: 11-11-2020 End: 11-21-2020 Comment on above: N39.0 amoxicillin 875 mg / clavulanate 125 mg oral tablet (20 sources) Penicillin-class Antibacterial Start: 09-30-2019 End: 10-10-2019 Amoxicillin-Pot Clavulanate 1 EACH tablet Discontinued 1 NMA PO TWICE A DAY 21 07September 30, 2019 1:00am October 09, 2019 1:00am October 10, 2019 1:08am Start: 09-30-2019 End: 10-10-2019 Amoxicillin-Pot Clavulanate Discontinued 1 EACH PO TWICE A DAY 21 07September 30, 2019 1:00am October 10, 2019 1:08am Start: 11-29-2013 End: 12-16-2013 Start: 11-29-2013 End: 12-16-2013 take 1 tablet by mouth twice daily AUGMENTIN, 875-125MG (Oral Tablet) 1 (one) Tablet two times daily for 14 days Quantity: 28 {Tablet} Refills: 0 Ordered: 16-Dec-2013 Pamela Humphrey LPN Start : 29-Nov-2013 End : 16-Dec-2013 Inactive apremilast 30 mg oral tablet (20 sources) Start: 01-12-2024 End: 03-19-2024 take 1 tablet by mouth once daily Apremilast (Otezla) 30 mg tablet Discontinued 30 mg PO DAILY January 12, 2024 12:00am March 19, 2024 8:47am Start: 08-11-2016 End: 02-16-2018 aspirin 81 mg delayed release oral tablet (20 sources) Nonsteroidal Anti-inflammatory Drug Start: 08-07-2017 End: 09-06-2017 take 1 tablet by mouth once daily at mealtime Aspirin Adult Low Dose 81 MG Oral Tablet Delayed Release 1 (one) Tablet Daily for 30 days Quantity: 30 {Tablet} Refills: 0 Ordered: 06-Sep-2017 Pat Velasquez Start : 07-Aug-2017 End : 06-Sep-2017 Inactive Comments: Take with food Comment on above: Take with food ATELVIA, 35MG (Oral Tablet Delayed Release) (2 sources) Start: 10-16-2013 End: 01-26-2015 ATELVIA, 35MG (Oral Tablet Delayed Release) [address] qweek for 0 days Quantity: 4 {Tablet_DR} Refills: 11 Ordered: 26-Jan-2015 Pat Crook LPN Start : 16-Oct-2013 End : 26-Jan-2015 Inactive atenolol 25 mg oral tablet (20 sources) beta-Adrenergic Pat Start: 01-15-2020 End: 02-19-2020 Start: 04-25-2019 take 1 tablet by lori th once daily Atenolol 25 MG Oral Tablet 1 (one) Tablet qd for 0 days Quantity: 30 {Tablet} Refills: 1 Ordered: 25-Apr-2019 Meghna Gregory DO, DO, Kathleen Start : 25-Apr-2019 Active Start: 12-27-2018 take 1 tablet by lori th once daily Atenolol 25 MG Oral Tablet 1 (one) Tablet Tablet qd for 0 days Quantity: 30 {Tablet} Refills: 1 Ordered: 27-Dec-2018 Long Manju RUDOLPH Start : 27-Dec-2018 Active ZITHROMAX Z-SHELLIE, 250MG (Oral Tablet) (20 sources) Macrolide Antimicrobial Start: 07-30-2014 End: 01-26-2015 Start: 07-30-2014 End: 01-26-2015 ZITHROMAX Z-SHELLIE, 250MG (Oral Tablet) 1 (one) Tablet TAD for 0 days Quantity: 1 {Package} Refills: 0 Ordered: 26-Jan-2015 Pat Crook RN Start : 30-Jul-2014 End : 26-Jan-2015 Inactive baclofen 10 mg oral tablet (20 sources) gamma-Aminobutyric Acid-ergic Agonist Start: 11-08-2013 End: 03-07-2022 take 1 tablet by mouth three times daily Baclofen 10 MG tablet Discontinued 10 mg PO THREE TIMES A DAY January 30, 2017 12:00am March 07, 2022 10:48am betamethasone dipropionate 0.643 mg/ml / calcipotriene 0.05 mg/ml topical foam (17 sources) Corticosteroid, Vitamin D Analog Start: 01-30-2017 End: 09-26-2019 Calcipotriene-Bet amethasone 60 GM foam Discontinued 60 g TP NEEDED as needed for ROSASIA January 30, 2017 12:00am September 26, 2019 3:27pm cephalexin 500 mg oral capsule (20 sources) Cephalosporin Antibacterial Start: 11-27-2022 End: 12-07-2022 take 1 capsule by mouth twice daily Cephalexin 500 mg capsule Discontinued 500 mg PO TWICE A DAY 21 07November 27, 2022 1:00am December 06, 2022 1:00am December 07, 2022 1:04am ciprofloxacin 500 mg oral tablet (20 sources) Quinolone Antimicrobial Start: 11-09-2020 End: 11-11-2020 Cortrosyn 0.25 MG Injection Solution Reconstituted (14 sources) Start: 02-19-2020 End: 04-23-2020 Cortrosyn 0.25 MG Injection Solution Reconstituted 1 (one) Each x1 for 0 days Quantity: 4 {Each} Refills: 0 Ordered: 23-Apr-2020 Meghna Gregory DO, DO, Kathleen Start : 19-Feb-2020 End : 23-Apr-2020 Inactive Comments: doing 1mcg IM Start: 02-19-2020 Cortrosyn 0.25 MG Injection Solution Reconstituted 1 (one) Each x1 for 0 days Quantity: 4 {Each} Refills: 0 Ordered: 19-Feb-2020 Meghna Gregory DO, DO, Kathleen Start : 19-Feb-2020 Active Comments: doing 1mcg IM Comment on above: doing 1mcg IM Cosyntropin (20 sources) Adrenocorticotropic Hormone Start: 02-19-2020 End: 04-23-2020 1 ml denosumab 60 mg/ml prefilled syringe (20 sources) RANK Ligand Inhibitor Start: 11-15-2023 End: 03-25-2025 Denosumab (Prolia) 60 mg/mL syringe Discontinued 60 mg SC every 6 months November 15, 2023 1:00am March 25, 2025 8:16am Start: 04-28-2023 Start: 07-11-2018 End: 10-10-2018 Start: 07-11-2018 End: 10-10-2018 Start: 07-11-2018 Prolia 60 MG/M L Subcutaneous Solution 1 (one) Milliliter q6mo for 0 days Quantity: 1 {Milliliter} Refills: 1 Ordered: 11-Jul-2018 Meghna Gregory DO, DO, Kathleen Start : 11-Jul-2018 Active desonide 0.5 mg/ml topical c ream (20 sources) Corticosteroid Start: 08-24-2009 End: 09-21-2012 Start: 08-24-2009 End: 09-21-2012 DESONIDE, 0.05% (External Cr ea) UAD Cream BID PRN for 0 days Quantity: 45 {Cream} Refills: 2 Ordered: 21-Sep-2012 Pat Crook RN Start : 24-Aug-2009 End : 21-Sep-2012 Inactive doxycycline monohydrate 50 mg oral capsule (20 sources) Tetracycline-class Drug Start: 12-31-2021 End: 03-19-2024 take 1 capsule by mouth once daily as needed Doxycycline Monohydrate 50 mg capsule Discontinued 50 mg PO DAILY as needed for ROSACEA November 15, 2023 12:26pm March 19, 2024 8:47am furosemide 20 mg oral tablet (20 sources) Loop Diuretic Start: 01-31-2020 End: 02-05-2020 1 ml glatiramer acetate 40 mg/ml prefilled syringe (20 sources) ibandronic acid 150 mg oral tablet (20 sources) Bisphosphonate Start: 08-12-2016 End: 02-16-2018 ibuprofen 600 mg oral tablet (17 sources) Nonsteroidal Anti-inflammatory Drug Start: 01-29-2020 End: 11-27-2022 take 1 tablet by mouth every six hours as needed for pain Ibuprofen 600 MG tablet Discontinued 600 mg PO EVERY 6 HOURS NEEDED as needed for Pain Score January 29, 2020 12:00am November 27, 2022 12:27pm interferon beta-1a 0.03 mg injection (20 sources) Recombinant Human Interferon beta Start: 01-30-2007 End: 08-20-2008 Start: 01-30-2007 End: 08-20-2008 AVONEX, 30MCG/VIAL (Intramus cular Kit) 1 Kit qweek for 0 days Refills: 0 Ordered: 21-Oct-2008 Lovely Moreno Start : 30-Jan-2007 End : 20-Aug-2008 Inactive End: 09-21-2012 End: 09-21-2012 inject 2 ug by subcutaneous injection once daily, then inject 5 ug by subcutaneous injection REBIF, 22MCG/0.5ML (Subcutaneous Solution) 2 mcg daily for 2 weeks, then 5 mcg for 0 days Refills: 0 Ordered: 21-Sep-2012 Pat Crook RN End : 21-Sep-2012 Inactive End: 09-21-2012 inject 2 ug by subcutaneous injection once daily, then inject 5 ug by subcutaneous injection REBIF, 22MCG/0.5ML (Subcutaneous Solution) 2 mcg daily for 2 weeks, then 5 mcg for 0 days Refills: 0 Ordered: 21-Sep-2012 Pat Crook RN End : 21-Sep-2012 Inactive End: 09-21-2012 take 2 ug by subcutaneous injection once daily, then take 5 ug by subcutaneous injection REBIF, 22MCG/0.5ML (Subcutaneous Solution) 2 mcg daily for 2 weeks, then 5 mcg for 0 days Refills: 0 Ordered: 21-Sep-2012 Pat Crook LPN End : 21-Sep-2012 Inactive loratadine 10 mg oral tablet (20 sources) Start: 07-16-2014 End: 01-26-2015 LORazepam 0.5 mg oral tablet (20 sources) Benzodiazepine Start: 09-11-2017 End: 02-05-2020 Start: 09-11-2017 End: 02-05-2020 take 6 tablets by mouth once daily as needed for anxiety Ativan 0.5 MG Oral Tablet uad Tablet once daily as needed for anxiety and travel for 0 days Quantity: 5 {Tablet} Refills: 0 Ordered: 05-Feb-2020 Chasity Vanessa CMA Start : 11-Sep-2017 End : 05-Feb-2020 Inactive Comments: Medication taken as needed. Start: 09-11-2017 Ativan 0.5 MG Oral Tablet uad Tablet once daily as needed for anxiety and travel for 0 days Quantity: 5 {Tablet} Refills: 0 Ordered: 11-Sep-2017 Meghna Gregory DO, DO, Kathleen Start : 11-Sep-2017 Active Comments: Medication taken as needed. Comment on above: Medication taken as needed. meloxicam 7.5 mg oral tablet (20 sources) Nonsteroidal Anti-inflammatory Drug Start: 03-19-2013 End: 11-08-2013 Comment on above: Take when done with Medrol pack with food MEDROL (SHELLIE), 4MG (Oral Tablet) (20 sources) Corticosteroid Start: 03-19-2013 End: 11-08-2013 Start: 03-19-2013 End: 11-08-2013 MEDROL (SHELLIE), 4MG (Oral Tabl et) 1 Tablet TAD for 0 days Quantity: 1 {Package(s)} Refills: 0 Ordered: 08-Nov-2013 Rebeca Hameed CMA Start : 19-Mar-2013 End : 08-Nov-2013 Inactive Start: 07-22-2011 End: 07-25-2011 Start: 07-22-2011 End: 07-25-2011 Start: 07-22-2011 End: 07-25-2011 SOLU-MEDROL, 1000MG (Injecti on Solution Reconstituted) 1 For Solution qd for 3 days Refills: 0 Ordered: 22-Jul-2011 Pat Crook RN Start : 22-Jul-2011 End : 25-Jul-2011 Inactive Comments: Lot #: [id number] date: ount given: 1 gm solumedrol in 100 ml nsRoute: IVSite given: left forearmGiven by: NORMA Escobar Comment on above: Lot #: [id number] on date: ount given: 1 gm solumedrol in 100 ml nsRoute: IVSite given: left forearmGiven by: NORMA Escobar metroNIDAZOLE 7.5 mg/ml topi gertrudis cream (20 sources) Nitroimidazole Antimicrobial Start: 04-07-2015 End: 02-05-2020 Start: 04-07-2015 End: 02-05-2020 MetroCream 0.75 % External C ream 1 (one) Cream Cream apply qd as directed for 30 days Quantity: 1 {Tube} Refills: 0 Ordered: 05-Feb-2020 Chasity Vanessa CMA Start : 07-Apr-2015 End : 05-Feb-2020 Inactive Comments: 1 large tube Comment on above: 1 large tube 15 ml natalizumab 20 mg/ml injection (20 sources) Integrin Receptor Antagonist Start: 09-21-2012 End: 01-30-2017 Start: 09-21-2012 End: 01-30-2017 Tysabri 300 MG/15ML Intraven ous Concentrate 1 Concentrate q mo for 30 days Refills: 0 Ordered: 30-Jan-2017 Pat Crook RN Start : 21-Sep-2012 End : 30-Jan-2017 Inactive nitrofurantoin, macrocrystals 25 mg / nitrofurantoin, monohydrate 75 mg oral capsule (2 sources) Start: 11-08-2013 End: 11-15-2013 take 1 capsule by mouth twice daily MACROBID, 100MG (Oral Capsule) 1 Capsule bid for 7 days Quantity: 14 {Capsule} Refills: 0 Ordered: 08-Nov-2013 Sammi Fitzgerald CNP Start : 08-Nov-2013 End : 15-Nov-2013 Inactive nitrofurantoin, macrocrystals 25 mg / nitrofurantoin, monohydrate 75 mg oral capsule (20 sources) Nitrofuran Antibacterial Start: 11-08-2013 End: 11-15-2013 10 ml ocrelizumab 30 mg/ml injection (20 sources) Start: 04-30-2020 End: 03-25-2025 Ocrelizumab 300 MG/10 ML solution Discontinued 300 mg IV .TWICE YEARLY April 30, 2020 12:00am March 25, 2025 8:17am NEXT DOSE 06/04/20 Ocrevus 300 MG/1 0ML Intravenous Solution [id number] (300 MG/10ML) Active 10 ml ocrelizumab 30 mg/ml injection (1 source) Ocrevus 300 MG/1 0ML Intravenous Solution [id number] (300 MG/10ML) Active ondansetron 4 mg disintegrating oral tablet (6 sources) Serotonin-3 Receptor Antagonist Start: 08-15-20 End: 01-10-20 24 take 1 tablet by mouth every eight hours as needed for nausea Ondansetron 4 mg tablet,disintegratin g Discontinued 4 mg PO EVERY 8 HOURS NEEDED as needed for Nausea August 15, 2023 1:00am January 10, 2024 3:04pm pantoprazole 40 mg delayed release oral tablet (20 sources) Proton Pump Inhibitor Start: 01-29-20 End: 11-09-19 21 take 1 tablet by mouth twice daily Pantoprazole 40 MG tablet Discontinued 40 mg PO TWICE A DAY 60 January 29, 2020 12:00am February 27, 2020 12:00am February 28, 2020 12:02am potassium chloride 10 meq extended release oral tablet (20 sources) Start: 01-29-20 End: 02-01-20 20 take 2 tablets by mouth once daily Potassium Chloride 10 MEQ tablet extended release Discontinued 20 meq PO DAILY 6 January 29, 2020 12:00am January 31, 2020 12:00am February 01, 2020 12:02am Start: 01-29-2020 End: 02-01-2020 take 20 mEq by mouth once daily Potassium Chloride Discontinued 20 MEQ PO DAILY 6 January 29, 2020 12:00am February 01, 2020 12:02am predniSONE 20 mg oral tablet (17 sources) Start: 04-30-2020 End: 08-11-2020 Prednisone 20 MG tablet Discontinued 20 mg PO .SEE INSTRUCTIONS April 30, 2020 12:00am August 11, 2020 10:17am ATELVIA, 35MG (Oral Tablet Delayed Release) (20 sources) Bisphosphonate Start: 10-16-2013 End: 01-26-2015 Start: 10-16-2013 End: 01-26-2015 ATELVIA, 35MG (Oral Tablet D elayed Release) [address] qweek for 0 days Quantity: 4 {Tablet_DR} Refills: 11 Ordered: 26-Jan-2015 Pat Crook RN Start : 16-Oct-2013 End : 26-Jan-2015 Inactive Start: 10-16-2013 End: 01-26-2015 ATELVIA, 35MG (Oral Tablet D elayed Release) [address] qweek for 0 days Quantity: 4 {Tablet_DR} Refills: 11 Ordered: 26-Jan-2015 Pat Crook LPN Start : 16-Oct-2013 End : 26-Jan-2015 Inactive Start: 10-15-2012 End: 11-08-2012 Soft Chews Calcium (7 sources) 28 actuat teriparatide 0.02 mg/actuat pen injector (20 sources) Parathyroid Hormone Analog Start: 03-13-2018 End: 03-13-2018 Start: 03-13-2018 End: 03-13-2018 Start: 03-13-2018 End: 03-13-2018 Forteo 600 MCG/2.4ML Subcuta neous Solution 1 (one) Injection qd for 30 days Quantity: 1 {Box} Refills: 11 Ordered: 13-Mar-2018 Mary Roman Start : 13-Mar-2018 End : 13-Mar-2018 Discontinued Comments: failed 2-oral rx - actonel and boniva- didnt tolerate Start: 03-13-2018 End: 03-13-2018 Forteo 600 MCG/2.4ML Subcuta neous Solution 1 (one) Injection qd for 30 days Quantity: 1 {Box} Refills: 11 Ordered: 13-Mar-2018 Mary Roman Start : 13-Mar-2018 End : 13-Mar-2018 Discontinued Comments: failed 2-oral rx - actonel and boniva- didnt tolerate Comment on above: failed 2-oral rx - a ctonel and boniva- didnt tolerate TYMLOS, 80mcg (Subcutaneous Injectable) (Free Text) (20 sources) Start: 04-12-2018 End: 07-12-2018 TYMLOS, 80mcg (Subcutaneous Injectable) (Free Text) 1 (one) Injectable qd for 30 days Quantity: 1 {Box} Refills: 11 Ordered: 12-Jul-2018 Manju Valerio RN Start : 12-Apr-2018 End : 12-Jul-2018 Inactive Start: 04-12-2018 End: 07-12-2018 TYMLOS, 80mcg (Subcutaneous Injectable) (Free Text) 1 (one) Injectable qd for 30 days Quantity: 1 {Box} Refills: 11 Ordered: 12-Jul-2018 Manju Valerio LPN Start : 12-Apr-2018 End : 12-Jul-2018 Inactive Start: 04-12-2018 TYMLOS, 80mcg (Subcutaneous Injectable) (Free Text) 1 (one) Injectable qd for 30 days Quantity: 1 {Box} Refills: 11 Ordered: 12-Apr-2018 Bri COHEN Meghna Angulo DO Start : 12-Apr-2018 Active (16 sources) Start: 04-12-2018 End: 07-12-2018 Problems Active Problems Problem Classification Problem Date Documented Da te Episodic/Chronic Abdominal pain (20 sources) Right lower quadrant pain; Translations: [Generalized abdominal pain] Resolved: 0 08-17-2015 Episodic Comment on above: pelvic pain, diarrhe a, history of diverticulitis recently on macrobid , for suspected uti, gave her diarrhea, today urine ? for UTI, will encourage macrobid with probiotic Administrative/social admission (20 sources) Medical examinations/reports status; Translations: [Well woman exam with routine gynecological exam] 03-13-2018 Episodic Anxiety disorders (20 sources) Other anxiety states; Translations: [Anxiety state] 03-13-2018 Chronic Cardiac dysrhythmias (17 sources) ECG: sinus tachycardia; Translations: [Tachycardia, unspecified] 03-07-2022 Episodic Chronic obstructive pulmonary disease and bronchiectasis (1 source) Bronchiectasis with acute lower respiratory infection; Translations: [Bronchiectasis with acute lower respiratory infection] Onset: 5 Chronic Coagulation and hemorrhagic disorders (6 sources) Finding related to bruising; Translations: [Spontaneous ecchymoses] 01-11-2024 Episodic Complications of surgical procedures or medical care (20 sources) Hypotension following procedure; Translations: [Hypotension after procedure] 11-18-2020 Episodic Congestive heart failure; nonhypertensive (20 sources) Diastolic dysfunction; Translations: [Diastolic dysfunction] 03-13-2018 Episodic Comment on above: havnet treated with BB bc concern her bp wouldnt tolerate -- systolic run 100-118 havnet treated with BB bc concern her bp wouldnt tolerate -- systolic run 100-118-- started with 1/2 tab and follow bp adn clinical repsonse closely -- tolerating fine Coronary atherosclerosis and other heart disease (20 sources) Coronary atherosclerosis and other heart disease Diabetes mellitus without complication (20 sources) Hyperglycemia; Translations: [Hyperglycemia] 02-25-2022 Episodic Diseases of white blood cells (20 sources) Leukocytosis; Translations: [Elevated WBC count] Resolved: 2 02-19-2020 Chronic Comment on above: Sep 27 sending to ER Disorders of teeth and jaw (20 sources) Gingivitis; Translations: [Gum inflammation] 12-22-2022 Chronic Diverticulosis and diverticulitis (20 sources) Diverticulitis of colon; Translations: [Diverticulitis of gastrointestinal tract] Resolved: 3 02-19-2020 Chronic E Codes: Fall (20 sources) Fall; Translations: [Fall] Resolved: 3 09-27-2019 Episodic Essential hypertension (15 sources) Hypertensive disorder; Translations: [Essential (primary) hypertension] 03-07-2022 Chronic Fluid and electrolyte disorders (20 sources) Hyperkalemia; Translations: [Hypokalemia] Resolved: 0 02-19-2020 Episodic Genitourinary symptoms and ill-defined conditions (20 sources) Dysuria; Translations: [Dysuria] Onset: 0 03-13-2018 Episodic Headache, including migraine (20 sources) Headache; Translations: [Acute headache] Resolved: 9 03-13-2018 Episodic Immunizations and screening for infectious disease (20 sources) Need for prophylactic vaccination and inoculation against influenza; Translations: [Patient encounter status] 11-18-2020 Episodic Intracranial injury (20 sources) Concussion with loss of consciousness of unspecified duration, initial encounter; Translations: [Concussion] Resolved: 9 10-10-2018 Episodic Malaise and fatigue (20 sources) Fatigue; Translations: [Fatigue] 02-19-2020 Episodic Menopausal disorders (20 sources) Atrophic vaginitis; Translations: [Postmenopausal atrophic vaginitis] Chronic Comment on above: estradiol cream, keg els Multiple sclerosis (20 sources) Multiple sclerosis; Translations: [Multiple sclerosis] Onset: 4 03-13-2018 Chronic Comment on above: dr Barrow managing [facility] still at [facility] Nonspecific chest pain (20 sources) Chest pain; Translations: [Chest pain] Resolved: 9 03-13-2018 Episodic Nutritional deficiencies (20 sources) Vitamin D deficiency; Translations: [Vitamin D deficiency, unspecified] 03-13-2018 Chronic Osteoporosis (20 sources) Senile osteoporosis; Translations: [Postmenopausal osteoporosis] Onset: 5 03-13-2018 Chronic Comment on above: prednisone treatment s h/o with MS Other aftercare (20 sources) Removal of sutures done; Translations: [Visit for suture removal] Resolved: 3 11-30-2022 Episodic Other and ill-defined heart disease (20 sources) Diastolic dysfunction; Translations: [Diastolic dysfunction] 11-18-2020 Chronic Other and unspecified benign neoplasm (4 sources) History of polyp of colon; Translations: [Personal history of colonic polyps] 01-12-2024 Episodic Other and unspecified benign neoplasm (2 sources) Personal history of colonic polyps; Translations: [Personal history of colonic polyps] 01-12-2024 Episodic Other bone disease and musculoskeletal deformities (20 sources) Osteopenia; Translations: [Osteopenia] 04-09-2018 Episodic Comment on above: Alendronate per PCP; BMD sched 04/2023 Other bone disease and musculoskeletal deformities (3 sources) Other specified disorders of bone density and structure, unspecified site; Translations: [Disorder of bone and cartilage, unspecified] 03-13-2023 Episodic Other connective tissue disease (20 sources) Other symptoms and signs involving the musculoskeletal system; Translations: [Weakness of right leg] 03-13-2018 Episodic Comment on above: from MS Other connective tissue disease (20 sources) Bilateral calf pain; Translations: [Bilateral calf pain] 11-18-2020 Episodic Other diseases of bladder and urethra (17 sources) Urethral caruncle; Translations: [Urethral caruncle] 08-11-2020 Episodic Comment on above: stable Other female genital disorders (20 sources) Pain in female genitalia on intercourse; Translations: [Dyspareunia, female] 07-27-2020 Chronic Other gastrointestinal disorders (20 sources) Diarrhea; Translations: [Diarrhea] Resolved: 9 11-08-2012 Episodic Other gastrointestinal disorders (14 sources) Gastrointestinal perforation; Translations: [Perforated diverticulum] 02-19-2020 Episodic Comment on above: post op and stable - - home nowsurgeon going to sched fu colonoscopy in few months Other gastrointestinal disorders (20 sources) Constipation; Translations: [Constipation] 02-19-2020 Episodic Comment on above: educ on it and will take miralax dailyfiber water adn will start miralax Other gastrointestinal disorders (2 sources) Mass of left lower quadrant of abdomen; Translations: [Left lower quadrant abdominal swelling, mass and lump] 03-19-2024 Episodic Comment on above: [place] Other inflammatory condition of skin (1 source) Other psoriatic arthropathy; Translations: [Other psoriatic arthropathy] Onset: 5 Chronic Other injuries and conditions due to external causes (20 sources) Injury of soft tissue of face; Translations: [Soft tissue injury of face, subsequent encounter] Resolved: 3 11-30-2022 Episodic Other injuries and conditions due to external causes (20 sources) Bone injury; Translations: [Bone bruise] 12-22-2022 Episodic Other injuries and conditions due to external causes (11 sources) Laceration - injury; Translations: [Other injury of unspecified body region, initial encounter] 11-27-2022 Episodic Other injuries and conditions due to external causes (3 sources) Other injury of unspecified body region, initial encounter; Translations: [Open wound(s) (multiple) of unspecified site(s), complicated] 11-27-2022 Episodic Other lower respiratory disease (20 sources) Cough; Translations: [Cough] Resolved: 6 08-11-2016 Episodic Other nervous system disorders (20 sources) Slurred speech; Translations: [Slurred speech] Resolved: 9 03-13-2018 Episodic Other nervous system disorders (20 sources) Paresthesia; Translations: [Paresthesia] 12-27-2018 Episodic Other nutritional; endocrine; and metabolic disorders (20 sources) Cholesterol level - finding; Translations: [Low HDL (under 40)] 03-13-2018 Chronic Other nutritional; endocrine; and metabolic disorders (20 sources) Body mass index less than 20; Translations: [BMI less than 19,adult] Resolved: 1 02-19-2020 Episodic Other nutritional; endocrine; and metabolic disorders (20 sources) Decreased body mass index; Translations: [Body mass index [BMI] 19.9 or less, adult] 02-25-2022 Episodic Other skin disorders (20 sources) Eruption; Translations: [Rash] Resolved: 8 03-23-2018 Episodic Comment on above: ? etiology erupted a fter adjustment for sciatic Other skin disorders (20 sources) Loss of hair; Translations: [Hair loss] Resolved: 3 04-23-2020 Episodic Other skin disorders (20 sources) Scar; Translations: [Scar] 12-22-2022 Episodic Other upper respiratory disease (20 sources) Allergic rhinitis; Translations: [Allergic Rhinitis] 03-13-2018 Chronic Comment on above: stable Other upper respiratory infections (20 sources) Acute pharyngitis; Translations: [Acute sinusitis] Resolved: 3 03-13-2018 Episodic Peritonitis and intestinal abscess (17 sources) Acute generalized peritonitis; Translations: [Generalized (acute) peritonitis] 03-07-2022 Episodic Pulmonary heart disease (20 sources) Pulmonary hypertension; Translations: [Pulmonary hypertension] 03-13-2018 Chronic Comment on above: last echo 08/18-- se eing Harjinderscandelarioep study and PFT nornal - just repeating to compare to baseline now since asx as well - Residual codes; unclassified (20 sources) Body mass index (BMI) 20.0-20.9, adult; Translations: [Body mass index 20-24 - normal] 10-10-2018 Episodic Residual codes; unclassified (20 sources) Needs influenza immunization; Translations: [Need for prophylactic vaccination and inoculation against influenza] 03-13-2018 Episodic Residual codes; unclassified (20 sources) Edema of lower extremity; Translations: [Edema, leg] Resolved: 0 02-05-2020 Episodic Residual codes; unclassified (20 sources) Non-smoker; Translations: [Non-smoker] 11-18-2020 Episodic Septicemia (except in labor) (17 sources) Sepsis; Translations: [Sepsis, unspecified organism] 03-07-2022 Episodic Spondylosis; intervertebral disc disorders; other back problems (20 sources) Low back pain; Translations: [Sciatica] Resolved: 9 03-13-2018 Episodic Comment on above: improving left sideworsened af ter adjustment from Chriop[facility]er Sprains and strains (6 sources) Strain of neck muscle; Translations: [Strain of muscle, fascia and tendon at neck level, initial encounter] 08-15-2023 Episodic Thyroid disorders (20 sources) Thyroid nodule; Translations: [Thyroid nodule] Onset: 5 03-13-2018 Chronic Comment on above: 11/18 ultrasound comp mohamud cyst on thyriod 0.8cm 01/18 ultrasound comp mohamud cyst on thyriod- too small for intervention -- cont to survellance annually This is a 68-year-ol d female, who remains euthyroid from an endocrine standpoint, and presents for follow-up of a right thyroid nodule. She previously was under surveillance for 2 thyroid nodules of the right thyroid lobe, however, her last study on 03/12/2022 only noted a single thyroid nodule. Patient was asked to see me because this nodule has undergone some growth since her prior study 05/26/2020. Updated study performed 03/24/2023 from patient's right-sided thyroid nodule to be completely stable from a year ago measuring within 1 mm of its prior dimensions. Further, although this nodule was recorded as a TI-RADS 3 on the previous study, I believe it could be argued that this is actually a TI-RADS 2 nodule given that there is still little solid component to it and that component that is present appears more isoechoic and hypoechoic by sonogram. If this distinction is allowing then this nodule with no longer be considered suspicious, but given that it has remained stable and the patient asymptomatic, I do not believe further follow-up is warranted. However, I have advised patient to have this area reexamined should she develop compressive symptomology. I have also stressed to her the importance of continuing to follow-up her thyroid function studies so that she does not realize growth of her nodule on the account of unchecked TSH elevations. She expresses understanding of this information and appreciation for these explanations. Unclassified (20 sources) Postmenopausal state; Translations: [Needs influenza immunization] 03-13-2018 Episodic Unclassified (20 sources) Non-smoker; Translations: [Non-smoker] 03-13-2018 Unclassified (20 sources) Unclassified (20 sources) Body mass index (BMI) 20.0-20.9, adult Unclassified (20 sources) Weakness of right lower extremity Unclassified (20 sources) Encounter for screening mammogram for breast cancer (Renamed from Encounter for screening mammogram for malignant neoplasm of breast) Unclassified (20 sources) Low HDL (272.5) Unclassified (20 sources) Encounter for hepatitis C virus screening test for high risk patient Unclassified (20 sources) Osteoporosis, postmenopausal Unclassified (20 sources) Encounter for screening for lipid disorder Unclassified (14 sources) Diverticulitis of intestine with abscess Unclassified (20 sources) BMI less than 19,adult Unclassified (14 sources) Diverticulitis, colon Unclassified (14 sources) Leukocytosis, unspecified type Unclassified (13 sources) Hair loss Urinary tract infections (20 sources) Acute cystitis; Translations: [Urinary tract infectious disease] Resolved: 3 07-28-2015 Episodic Comment on above: post treatment cx 10 00 colonies will repeat in in 2 wks, given script if becomes symptomatichas had E coli x 3 with 100,000 colonies, repeat 4000 colonies and repeat 1000 colonies, per KF will treat Viral infection (20 sources) Viral disease; Translations: [Viral infection, unspecified] 03-13-2018 Episodic Past or Other Problems Problem Classification Problem Date Documented Date Episodic/Chronic External Injury - Fall (20 sources) Fall; Translations: [Fall] Resolved: 12-27-2018 03-23-2018 Comment on above: this is making the s ciatica worseGoing to PT stable neuro, known to have MS Headache, including migraine (20 sources) Headache, including migraine; Translations: [Acute headache] Resolved: 12-27-2018 12-27-2018 Influenza (20 sources) Influenza Other circulatory disease (14 sources) Hypotension following procedure; Translations: [Hypotension after procedure] 02-19-2020 Comment on above: on BB for Diastolic dysfcn---doing 1/2 nso will stop now with low bp Other connective tissue disease (14 sources) Bilateral calf pain; Translations: [Bilateral calf pain] 02-19-2020 Other injuries and conditions due to external causes (20 sources) Concussion injury of body structure; Translations: [Concussion] Resolved: 12-27-2018 12-27-2018 Episodic Paralysis (20 sources) Weakness of right leg; Translations: [Weakness of right lower extremity] 02-08-2019 Comment on above: from MS Unclassified (20 sources) Breast neoplasm screening status; Translations: [Liver function tests abnormal] Onset: 04-18-2024 03-13-2018 Episodic Unclassified (20 sources) Well woman exam with routine gynecological exam Unclassified (20 sources) Rash (782.1) Unclassified (20 sources) Breast screening (V76.10) Unclassified (20 sources) Unspecified Diagnosis Resolved: 11-08-2012 03-13-2018 Unclassified (20 sources) DYSURIA, NOS (788.1) Unclassified (20 sources) Well Woman Exam (V72.31) (Pap,Mammo,Routine Female) Unclassified (20 sources) Postmenopausal Unclassified (20 sources) DEFICIENCY, VITAMIN D NOS (268.9) Unclassified (20 sources) Cystitis,Acute (595.0) Unclassified (20 sources) Screening status; Translations: [SCREENING FOR HYPERLIPIDEMIA] 03-13-2018 Unclassified (20 sources) Patient encounter status; Translations: [Screening for HPV (human papillomavirus) (Renamed from Encounter for screening for human papillomavirus (HPV))] 03-13-2018 Unclassified (20 sources) Pregnancies (); Translations: [Pregnancies ()] 03-13-2018 Comment on above: 2 Unclassified (20 sources) Anxiety state, unspecified (300.00) Unclassified (20 sources) Abdominal Pain,RLQ (789.03) Unclassified (20 sources) Deliveries (Parity); Translations: [Deliveries (Parity)] 03-13-2018 Comment on above: 2 Unclassified (20 sources) Non-smoker; Translations: [Non-smoker] 10-10-2018 Unclassified (20 sources) Screening for HPV (human papillomavirus) (Renamed from Encounter for screening for human papillomavirus (HPV)) Unclassified (20 sources) Body mass index 20-24 - normal; Translations: [Body mass index (BMI) 20.0-20.9, adult] 02-08-2019 Unclassified (14 sources) Pelvic pain in female Unclassified (14 sources) Body mass index (BMI) of 19.0-19.9 in adult Unclassified (20 sources) Hypotension after procedure Unclassified (20 sources) Serum potassium elevated Unclassified (20 sources) Bilateral calf pain Unclassified (20 sources) Edema, leg Unclassified (14 sources) Abnormal liver function test Unclassified (14 sources) Elevated WBC count Unclassified (20 sources) Abdominal pain, generalized Unclassified (20 sources) BMI 20.0-20.9, adult Unclassified (8 sources) Well woman exam (Renamed from Encounter for well woman exam) Unclassified (8 sources) Dyspareunia, female Unclassified (5 sources) Annual Medicare Phyiscal WITHOUT abnormal findings (Renamed from Encounter for general adult medical examination without abnormal findings) Unclassified (5 sources) Low HDL (under 40) Urinary tract infections (20 sources) Urinary tract infections Results Test Name Value Interpretation Reference Range Facility Surgery Aide Office Visit Reporton 03-25-2025 Surgery Aide Office Visit Report [facility] [address], [address] [place] [address] OFFICE VISIT Date of Service: 03/25/25 MR#: [id number] Acct: [id number] Name: MONSE BLEVINS Rep #: [id number] : 1955 Provider: FLORENCIA li Age/Sex: 70/F Location: [facility] [place] Status: Signed Intake Vital Signs 07/26/24 08:12 03/25/25 08:09 03/25/25 08:19 Height 4 ft 11 in 4 ft 11 in 4 ft 11 in Weight: 95 lb 6 oz BMI 19.2 BP 112/68 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 [employer] 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: No Is patient in pain?: No Allergies Sulfa (Sulfonamide Antibiotics) Allergy (Intermediate, Verified 03/25/25 08:22) Hives Medications ???Medication ???Instructions ???Recorded ???Confirmed ???Type gabapentin 100 mg capsule 100 mg PO BIDCM nerve pain 7 03/25/25 History gabapentin 300 mg capsule 300 mg PO QHS MS 01/30/17 03/25/25 History cholecalciferol (vitamin D3) 50 2,000 unit PO DAILY bone health 03/25/25 History mcg (2,000 unit) tablet calcium carbonate (Calci-Chew) 500 mg PO DAILY 10/07/19 03/25/25 History fluticasone propionate 50 1 spray NASAL DAILY 04/30/2003/25 History mcg/actuation nasal spray,suspension baclofen 10 mg tablet 10 mg PO TID MS 03/07/22 03/25/25 History methylphenidate HCl 5 mg tablet 5 mg PO DAILY PRN MULTIPLE 2 03/25/25 History (Ritalin) SCLEROSIS FATIGUE ammonium lactate 12 % topical cream 1 applic topical DAILY PRN dry skin 07/31/23 03/25/25 History ferrous sulfate 325 mg (65 mg 325 mg PO .MON,Mon11/15/23 History iron) tablet estradiol 0.01% (0.1 mg/gram) See Rx Instructions vaginal 03/25/25 Rx vaginal cream (Estrace) .COMPLEX #42.5 grams methotrexate 2 mg/mL oral solution 5 mg PO .1x a week 07/26/2403/03 History alendronate 35 mg tablet 35 mg PO QWEEK 03/25/25 03/25/25 H istory ammonium lactate 5 % topical cream applic topical 03/25/25 03/25/25 History estradiol 0.01% (0.1 mg/gram) See Rx Instructions vaginal 03/25/25 History vaginal cream .COMPLEX folic acid 800 mcg tablet 0.8 mg PO QDAY 03/25/25 03/25/25 H istory Is last menstrual period known: No Post menopausal: Yes Patient : No : No PFSH Medical History Wears glasses Low iron Easy bruising Arthritis Migraine headache Multiple sclerosis Non-smoker Leg cramps History of adenomatous polyp of colon Thyroid nodule Peritonitis (acute) generalized Sepsis Sinus tachycardia by electrocardiogram Back pain Osteoarthritis Osteoporosis HTN (hypertension) History of multiple sclerosis History of diverticulitis Diverticulitis of large intestine with abscess Surgical History Status post colectomy History of colonoscopy ( 2013) History of tubal ligation History of tonsillectomy History of appendectomy Family History Mother Thyroid disorder Grandfather Colon cancer Daughter Cancer skin Other Diabetes Social History household members: spouse number of children: 2 current occupational status: retired history of recent travel: No sexually active: Yes Smoking Status: Never smoker alcohol intake: never substance use type: does not use what type of physical activity do you participate in: bicycling and aerobics frequency: daily seatbelt use: always do you feel safe at home: Yes additional social history: - Eric History 2 Elective abortions Hx Para 2 Spontaneous abortions Hx # Term Pregnancies Ectopic pregnancies Hx # Pregnancies Multiple births # of living children 2 Past Pregnancies Del. Date Name GA/Weeks Outcome Route Bth Weight Infant Gen Labor Lgth Anesthesia Del Locatn Provider FOB Unknown Vonda 1971 Unknown Pat 1975 HPI Encounter for routine gynecological examination Details: MONSE BLEVINS is a 70 year old who presents for annual exam. Denies concerns. Needs refill compounded estradiol cream. Dealing with parents and health issues. Mom age 89 and has pancreatic cancer. Father is 92, some dementia. Both still living [place] farm. Last PAP: NA History of abnormal PAP: no Last mammogram: 04/2024 History of abnormal mammogram: no Colon cancer screenin Other preventative health care screenings: Bri Female Reproductive History Questions: metorrhagia: No and sexually active: No Menopausal Treatment: Yes Vaginal Estrogen ROS Const Constitutional: Denies fatigue, weight gain or weight loss Cardio Card: Denies chest pain Resp Resp (more content not included)... Normal [facility] Absolute lymphocyte countOrd ered By: Marisel Terry on 02-03-2025 Lymphocytes Auto (Unsp spec) [#/Vol] 1.46 10*3/uL 0.83-4.51 [facility] Absolute neutrophil countOrd ered By: Marisel Terry on 02-03-2025 Neutrophils (Bld) [#/Vol] 7.7 10*3/uL 2.0-7.7 [facility] Anion gap in Serum or Plasma Ordered By: Marisel Terry on 02-03-2025 Anion gap [Moles/Vol] 9 mmol/L 5-15 [facility] Automated lymphocyte count a s percentage of total leukocytesOrdered By: Marisel Terry on 02-03-2025 Lymphocytes/100 WBC Auto (Unsp spec) 14.6 % Low 19-41 [facility] BUN/creatinine ratioOrdered By: Marisel Terry on 02-03-2025 Urea nitrogen/Creatinine [Mass ratio] 26.0 mg/mg High 10-20 [facility] Basophil percentageOrdered B y: Marisel Terry on 02-03-2025 Basophils/100 WBC (Bld) 0.4 % 0-1 [facility] Bilirubin, totalOrdered By: Marisel Terry on 02-03-2025 Bilirubin [Mass/Vol] 0.42 mg/dL 0.00-1.30 [facility] CBC W/Diff, Automatedon Absolute Lymph 1.46 X10 3/uL Normal 0.83-4.51 [facility] Comment on above: Performed By: #### L 505.7010, L4600.0100, L100.0100, L3890.6100, L801.1541, L801.1543, L3100.7950, L3890.6300, L3890.6200, L501.6710, L500.4050, L101.9900 #### [facility] [address] [place], [address] Absolute Neut 7.7 X10 3/uL Normal 2.0-7.7 [facility] Comment on above: Performed By: #### L 505.7010, L4600.0100, L100.0100, L3890.6100, L801.1541, L801.1543, L3100.7950, L3890.6300, L3890.6200, L501.6710, L500.4050, L101.9900 #### [facility] [address] [place], [place], [id number] (202) Basophils/100 WBC (Bld) 0.4 % Normal 0-1 [facility] Comment on above: Performed By: #### L 505.7010, L4600.0100, L100.0100, L3890.6100, L801.1541, L801.1543, L3100.7950, L3890.6300, L3890.6200, L501.6710, L500.4050, L101.9900 #### [facility] [address] [place], [place], [phone] (074 Eosinophils/100 WBC (Bld) 0.9 % Normal 0-5 [facility] Comment on above: Performed By: #### L 505.7010, L4600.0100, L100.0100, L3890.6100, L801.1541, L801.1543, L3100.7950, L3890.6300, L3890.6200, L501.6710, L500.4050, L101.9900 #### [facility] [address] [place], [place], [id number] (475) Erythrocyte distribution width (RBC) [Ratio] 14.0 % Normal 11.6-14.6 [facility] Comment on above: Performed By: #### L 505.7010, L4600.0100, L100.0100, L3890.6100, L801.1541, L801.1543, L3100.7950, L3890.6300, L3890.6200, L501.6710, L500.4050, L101.9900 #### [facility] [address] [place], [place], [id number] (814) Hematocrit (Bld) [Volume fraction] 40.3 % Normal 37-47 [facility] Comment on above: Performed By: #### L 505.7010, L4600.0100, L100.0100, L3890.6100, L801.1541, L801.1543, L3100.7950, L3890.6300, L3890.6200, L501.6710, L500.4050, L101.9900 #### [facility] [address] [place], [place], [phone] (879) Hemoglobin (Bld) [Mass/Vol] 13.2 g/dL Normal 12.0-15.0 [facility] Comment on above: Performed By: #### L 505.7010, L4600.0100, L100.0100, L3890.6100, L801.1541, L801.1543, L3100.7950, L3890.6300, L3890.6200, L501.6710, L500.4050, L101.9900 #### [facility] [address] [place], [address] IG% 0.300 Normal 0.0-0.9 [facility] Comment on above: Result Comment: IG% - Immature Granulocytes (promyelocytes, myelocytes and metamyelocytes) > 1% indicates that a LEFT SHIFT is Present. Performed By: #### L 505.7010, L4600.0100, L100.0100, L3890.6100, L801.1541, L801.1543, L3100.7950, L3890.6300, L3890.6200, L501.6710, L500.4050, L101.9900 #### [facility] [address] [place], [address] Lymphocytes/100 WBC (Bld) 14.6 % Low 19-41 [facility] Comment on above: Performed By: #### L 505.7010, L4600.0100, L100.0100, L3890.6100, L801.1541, L801.1543, L3100.7950, L3890.6300, L3890.6200, L501.6710, L500.4050, L101.9900 #### [facility] [address] [place], [place], [id number] MCH (RBC) [Entitic mass] 31.7 pg Normal 27.0-32.0 [facility] Comment on above: Performed By: #### L 505.7010, L4600.0100, L100.0100, L3890.6100, L801.1541, L801.1543, L3100.7950, L3890.6300, L3890.6200, L501.6710, L500.4050, L101.9900 #### [facility] [address] [place], [address] MCHC (RBC) [Mass/Vol] 32.8 g/dL Normal 32-36 [facility] Comment on above: Performed By: #### L 505.7010, L4600.0100, L100.0100, L3890.6100, L801.1541, L801.1543, L3100.7950, L3890.6300, L3890.6200, L501.6710, L500.4050, L101.9900 #### [facility] [address] [place], [address] MCV (RBC) [Entitic vol] 96.6 fL Normal 81-99 [facility] Comment on above: Performed By: #### L 505.7010, L4600.0100, L100.0100, L3890.6100, L801.1541, L801.1543, L3100.7950, L3890.6300, L3890.6200, L501.6710, L500.4050, L101.9900 #### [facility] [address] [place], [address] Monocytes/100 WBC (Bld) 6.7 % Normal 0-10 [facility] Comment on above: Performed By: #### L 505.7010, L4600.0100, L100.0100, L3890.6100, L801.1541, L801.1543, L3100.7950, L3890.6300, L3890.6200, L501.6710, L500.4050, L101.9900 #### [facility] [address] [place], [address] Neutrophils/100 WBC (Bld) 77.1 % High 47-70 [facility] Comment on above: Performed By: #### L 505.7010, L4600.0100, L100.0100, L3890.6100, L801.1541, L801.1543, L3100.7950, L3890.6300, L3890.6200, L501.6710, L500.4050, L101.9900 #### [facility] [address] [place], [address] Nucleated RBC (Bld) [#/Vol] 0 10*3/uL Normal 0-5 [facility] Comment on above: Performed By: #### L 505.7010, L4600.0100, L100.0100, L3890.6100, L801.1541, L801.1543, L3100.7950, L3890.6300, L3890.6200, L501.6710, L500.4050, L101.9900 #### [facility] [address] [place], [address] ( Platelet mean volume (Bld) [Entitic vol] 8.6 fL Normal 6.2-12.0 [facility] Comment on above: Performed By: #### L 505.7010, L4600.0100, L100.0100, L3890.6100, L801.1541, L801.1543, L3100.7950, L3890.6300, L3890.6200, L501.6710, L500.4050, L101.9900 #### [facility] [address] [place], [place], [id number] (065 Platelets (Bld) [#/Vol] 426 10*3/uL Normal 150-450 [facility] Comment on above: Performed By: #### L 505.7010, L4600.0100, L100.0100, L3890.6100, L801.1541, L801.1543, L3100.7950, L3890.6300, L3890.6200, L501.6710, L500.4050, L101.9900 #### [facility] [address] [place], [address] (482 RBC (Bld) [#/Vol] 4.17 10*6/uL Low 4.2-5.4 [facility] Comment on above: Performed By: #### L 505.7010, L4600.0100, L100.0100, L3890.6100, L801.1541, L801.1543, L3100.7950, L3890.6300, L3890.6200, L501.6710, L500.4050, L101.9900 #### [facility] [address] [place], [place], [id number] (740) RDW SD 48.8 fl High 35.1-43.9 [facility] Comment on above: Performed By: #### L 505.7010, L4600.0100, L100.0100, L3890.6100, L801.1541, L801.1543, L3100.7950, L3890.6300, L3890.6200, L501.6710, L500.4050, L101.9900 #### [facility] [address] [place], [address] WBC (Bld) [#/Vol] 10.0 10*3/uL Normal 4.4-11.0 [facility] Comment on above: Performed By: #### L 505.7010, L4600.0100, L100.0100, L3890.6100, L801.1541, L801.1543, L3100.7950, L3890.6300, L3890.6200, L501.6710, L500.4050, L101.9900 #### [facility] [address] [place], [address] Carbon dioxide, total [Moles /volume] in Central venous bloodOrdered By: Marisel Terry on 02-03-2025 CO2 [Moles/Vol] 28.0 mmol/L 21.0-32.0 [facility] Chloride assayOrdered By: Ayaan Terry on 05-05-2025 Chloride [Moles/Vol] 103 mmol/L 98-108 [facility] Comprehensive Metabolic Prof ilon 02-03-2025 Albumin [Mass/Vol] 4.1 g/dL Normal 3.4-4.8 [facility] Comment on above: Performed By: #### L 505.7010, L4600.0100, L100.0100, L3890.6100, L801.1541, L801.1543, L3100.7950, L3890.6300, L3890.6200, L501.6710, L500.4050, L101.9900 #### [facility] [address] [place], [place], [id number] Albumin/Globulin [Mass ratio] 1.8 {ratio} Normal 0.9-2.4 [facility] Comment on above: Performed By: #### L 505.7010, L4600.0100, L100.0100, L3890.6100, L801.1541, L801.1543, L3100.7950, L3890.6300, L3890.6200, L501.6710, L500.4050, L101.9900 #### [facility] [address] [place], [place], [id number] ALK PHOS 61 U/L Normal 35-104 [facility] Comment on above: Performed By: #### L 505.7010, L4600.0100, L100.0100, L3890.6100, L801.1541, L801.1543, L3100.7950, L3890.6300, L3890.6200, L501.6710, L500.4050, L101.9900 #### [facility] [address] [place], [place], [id number] ALT [Catalytic activity/Vol] 24 U/L Normal <=34 [facility] Comment on above: Performed By: #### L 505.7010, L4600.0100, L100.0100, L3890.6100, L801.1541, L801.1543, L3100.7950, L3890.6300, L3890.6200, L501.6710, L500.4050, L101.9900 #### [facility] [address] [place], [place], [id number] AST [Catalytic activity/Vol] 30 U/L Normal <=31 [facility] Comment on above: Performed By: #### L 505.7010, L4600.0100, L100.0100, L3890.6100, L801.1541, L801.1543, L3100.7950, L3890.6300, L3890.6200, L501.6710, L500.4050, L101.9900 #### [facility] [address] [place], [address] Bilirubin [Mass/Vol] 0.42 mg/dL Normal 0.00-1.30 [facility] Comment on above: Performed By: #### L 505.7010, L4600.0100, L100.0100, L3890.6100, L801.1541, L801.1543, L3100.7950, L3890.6300, L3890.6200, L501.6710, L500.4050, L101.9900 #### [facility] [address] [place], [place], [id number] BUN/CRE 26.0 RATIO High 10-20 [facility] Comment on above: Performed By: #### L 505.7010, L4600.0100, L100.0100, L3890.6100, L801.1541, L801.1543, L3100.7950, L3890.6300, L3890.6200, L501.6710, L500.4050, L101.9900 #### [facility] [address] [place], [address] Calcium [Mass/Vol] 9.9 mg/dL Normal 7.6-11.0 [facility] Comment on above: Performed By: #### L 505.7010, L4600.0100, L100.0100, L3890.6100, L801.1541, L801.1543, L3100.7950, L3890.6300, L3890.6200, L501.6710, L500.4050, L101.9900 #### [facility] [address] [place], [address] Chloride [Moles/Vol] 103 mmol/L Normal 98-108 [facility] Comment on above: Performed By: #### L 505.7010, L4600.0100, L100.0100, L3890.6100, L801.1541, L801.1543, L3100.7950, L3890.6300, L3890.6200, L501.6710, L500.4050, L101.9900 #### [facility] [address] [place], [place], [id number] (742) CO2 [Moles/Vol] 28.0 mmol/L Normal 21.0-32.0 [facility] Comment on above: Performed By: #### L 505.7010, L4600.0100, L100.0100, L3890.6100, L801.1541, L801.1543, L3100.7950, L3890.6300, L3890.6200, L501.6710, L500.4050, L101.9900 #### [facility] [address] [place], [place], [id number] (918) Creatinine [Mass/Vol] 0.84 mg/dL Normal 0.70-1.20 [facility] Comment on above: Performed By: #### L 505.7010, L4600.0100, L100.0100, L3890.6100, L801.1541, L801.1543, L3100.7950, L3890.6300, L3890.6200, L501.6710, L500.4050, L101.9900 #### [facility] [address] [place], [address] GAP 9 Normal 5-15 [facility] Comment on above: Performed By: #### L 505.7010, L4600.0100, L100.0100, L3890.6100, L801.1541, L801.1543, L3100.7950, L3890.6300, L3890.6200, L501.6710, L500.4050, L101.9900 #### [facility] [address] [place], [address] GFR/1.73 sq M.predicted among non-blacks MDRD (S/P/Bld) [Vol rate/Area] 75 mL/min/{1.73_m2} Normal >60 [facility] Comment on above: Result Comment: mL/m in/1.73m2 CKD-EPI Creatinine Equation (2020) Performed By: #### L 505.7010, L4600.0100, L100.0100, L3890.6100, L801.1541, L801.1543, L3100.7950, L3890.6300, L3890.6200, L501.6710, L500.4050, L101.9900 #### [facility] [address] [place], [address] Globulin (S) [Mass/Vol] 2.3 g/dL Normal 2.2-4.2 [facility] Comment on above: Performed By: #### L 505.7010, L4600.0100, L100.0100, L3890.6100, L801.1541, L801.1543, L3100.7950, L3890.6300, L3890.6200, L501.6710, L500.4050, L101.9900 #### [facility] [address] [place], [address] Glucose [Mass/Vol] 119 mg/dL High 70-99 [facility] Comment on above: Performed By: #### L 505.7010, L4600.0100, L100.0100, L3890.6100, L801.1541, L801.1543, L3100.7950, L3890.6300, L3890.6200, L501.6710, L500.4050, L101.9900 #### [facility] [address] [place], [address] Potassium [Moles/Vol] 4.3 mmol/L Normal 3.3-5.1 [facility] Comment on above: Performed By: #### L 505.7010, L4600.0100, L100.0100, L3890.6100, L801.1541, L801.1543, L3100.7950, L3890.6300, L3890.6200, L501.6710, L500.4050, L101.9900 #### [facility] [address] [place], [address] Sodium [Moles/Vol] 140 mmol/L Normal 133-145 [facility] Comment on above: Performed By: #### L 505.7010, L4600.0100, L100.0100, L3890.6100, L801.1541, L801.1543, L3100.7950, L3890.6300, L3890.6200, L501.6710, L500.4050, L101.9900 #### [facility] [address] [place], [address] T PROT 6.4 g/dL Normal 5.9-8.4 [facility] Comment on above: Performed By: #### L 505.7010, L4600.0100, L100.0100, L3890.6100, L801.1541, L801.1543, L3100.7950, L3890.6300, L3890.6200, L501.6710, L500.4050, L101.9900 #### [facility] [address] [place], [address] Urea nitrogen [Mass/Vol] 22 mg/dL High 4-19 [facility] Comment on above: Performed By: #### L 505.7010, L4600.0100, L100.0100, L3890.6100, L801.1541, L801.1543, L3100.7950, L3890.6300, L3890.6200, L501.6710, L500.4050, L101.9900 #### [facility] [address] [place], [place], [id number] (320) Eosinophil percentageOrdered By: Marisel Terry on 02-03-2025 Eosinophils/100 WBC (Bld) 0.9 % 0-5 [facility] Erythrocyte distribution wid th ratioOrdered By: [facility] on 02-03-2025 Erythrocyte distribution width (RBC) [Ratio] 14.0 % 11.6-14.6 [facility] Erythrocyte distribution wid th standard deviationOrdered By: Marisel Terry on 02-03-2025 Erythrocyte distribution width (RBC) [Ratio] 48.8 fl High 35.1-43.9 [facility] Glomerular filtration rate ( GFR) estimation/1.73 sq m using serum, plasma, or whole bOrdered By: Marisel Terry on 02-03-2025 GFR/1.73 sq M.predicted among non-blacks MDRD (S/P/Bld) [Vol rate/Area] 75 mL/min/{1.73_m2} >60 [facility] Comment on above: mL/min/1.73m2 CKD-EP I Creatinine Equation (2020) Hematocrit Auto (Bld) [Volum e fraction]Ordered By: Marisel Terry on 02-03-2025 Hematocrit (Bld) [Volume fraction] 40.3 % 37-47 [facility] Hemoglobin measurementOrdere d By: Marisel Terry on 02-03-2025 Hemoglobin (Bld) [Mass/Vol] 13.2 g/dL 12.0-15.0 [facility] Immature granulocytes/100 WB C Auto (Bld)Ordered By: Marisel Terry on 02-03-2025 Immature granulocytes/100 WBC (Bld) 0.300 % 0.0-0.9 [facility] Comment on above: IG% - Immature Granu locytes (promyelocytes, myelocytes and metamyelocytes) > 1% indicates that a LEFT SHIFT is Present. Laboratory - Chemistry and C hemistry - challengeOrdered By: Marisel Terry on 02-03-2025 AST [Catalytic activity/Vol] 30 U/L <32 [facility] MCV (mean corpuscular volume ) determinationOrdered By: Marisel Terry on 02-03-2025 MCV (RBC) [Entitic vol] 96.6 fL 81-99 [facility] Mean corpuscular hemoglobin (MCH) determinationOrdered By: Marisel Terry on 02-03-2025 MCH (RBC) [Entitic mass] 31.7 pg 27.0-32.0 [facility] Mean corpuscular hemoglobin concentration (MCHC) determinationOrdered By: Marisel Terry on 02-03-2025 MCHC (RBC) [Mass/Vol] 32.8 g/dL 32-36 [facility] Mean platelet volume determi nationOrdered By: Marisel Terry on 02-03-2025 Platelet mean volume (Bld) [Entitic vol] 8.6 fL 6.2-12.0 [facility] Monocyte percentageOrdered B y: Marisel Terry on 02-03-2025 Monocytes/100 WBC (Bld) 6.7 % 0-10 [facility] Neutrophil percentageOrdered By: Marisel Terry on 02-03-2025 Neutrophils/100 WBC (Bld) 77.1 % High 47-70 [facility] Nucleated red blood cell per centageOrdered By: Marisel Terry on 02-03-2025 Nucleated RBC/100 WBC (Bld) [Ratio] 0 % 0-5 [facility] Platelet countOrdered By: Ayaan Terry on 02-03-2025 Platelets (Bld) [#/Vol] 426 10*3/uL 150-450 [facility] Potassium measurement (mass/ volume)Ordered By: Marisel Terry on 02-03-2025 Potassium (Unsp spec) [Mass/Vol] 4.3 mmol/L 3.3-5.1 [facility] RBC Auto (Bld) [#/Vol]Ordere d By: Marisel Terry on 02-03-2025 RBC (Bld) [#/Vol] 4.17 10*6/uL Low 4.2-5.4 [facility] Serum creatinine measurement (mass/volume)Ordered By: Marisel Terry on 02-03-2025 Creatinine [Mass/Vol] 0.84 mg/dL 0.70-1.20 [facility] Serum globulin measurementOr dered By: Marisel Terry on 02-03-2025 Globulin (S) [Mass/Vol] 2.3 g/dL 2.2-4.2 [facility] Serum glucose measurement (m ass/volume)Ordered By: Marisel Terry on 02-03-2025 Glucose [Mass/Vol] 119 mg/dL High 70-99 [facility] Serum or plasma alanine estevez otransferase (ALT) measurementOrdered By: Marisel Terry on 02-03-2025 ALT [Catalytic activity/Vol] 24 U/L <35 [facility] Serum or plasma albumin linwood urement (mass/volume)Ordered By: Marisel Terry on 02-03-2025 Albumin [Mass/Vol] 4.1 g/dL 3.4-4.8 [facility] Serum or plasma albumin/glob ulin mass ratioOrdered By: Marisel Terry on 02-03-2025 Albumin/Globulin [Mass ratio] 1.8 {ratio} 0.9-2.4 [facility] Serum or plasma alkaline kelvin sphatase measurementOrdered By: Marisel Terry on 02-03-2025 ALP [Catalytic activity/Vol] 61 U/L 35-104 [facility] Serum or plasma calcium linwood urement (mass/volume)Ordered By: Marisel Terry on 02-03-2025 Calcium [Mass/Vol] 9.9 mg/dL 7.6-11.0 [facility] Serum or plasma urea nitroge n measurement (mass/volume)Ordered By: Marisel Terry on 02-03-2025 Urea nitrogen [Mass/Vol] 22 mg/dL High 4-19 [facility] Sodium levelOrdered By: Edson Terry on 02-03-2025 Sodium [Moles/Vol] 140 mmol/L 133-145 [facility] Total proteinOrdered By: Vicente Terry on 02-03-2025 Protein [Mass/Vol] 6.4 g/dL 5.9-8.4 [facility] White blood cell (WBC) count Ordered By: Marisel Terry on 02-03-2025 WBC (Bld) [#/Vol] 10.0 10*3/uL 4.4-11.0 [facility] Absolute lymphocyte countOrd ered By: Marisel Terry on 11-01-2024 Lymphocytes Auto (Unsp spec) [#/Vol] 2.03 10*3/uL 0.83-4.51 [facility] Absolute neutrophil countOrd ered By: Marisel Terry on 11-01-2024 Neutrophils (Bld) [#/Vol] 6.9 10*3/uL 2.0-7.7 [facility] Albumin to globulin ratioOrd ered By: Marisel Terry on 11-01-2024 Albumin/Globulin [Mass ratio] 1.2 {ratio} 0.9-2.4 [facility] Automated lymphocyte count a s percentage of total leukocytesOrdered By: Marisel Terry on 11-01-2024 Lymphocytes/100 WBC Auto (Unsp spec) 20.1 % 19-41 [facility] Basophil percentageOrdered B y: Marisel Terry on 11-01-2024 Basophils/100 WBC (Bld) 0.7 % 0-1 [facility] Bilirubin, totalOrdered By: Marisel Terry on 11-01-2024 Bilirubin [Mass/Vol] 0.30 mg/dL 0.20-1.00 [facility] Comment on above: For patients on eltr ombopag therapy, use of Dimension [place] TBIL is not recommended. Blood urea nitrogen (BUN)/cr eatinine ratioOrdered By: Marisel Terry on 11-01-2024 Urea nitrogen/Creatinine [Mass ratio] 24.1 mg/mg High 10-20 [facility] CBC W/Diff, Automatedon 10-04 Absolute Lymph 2.03 X10 3/uL Normal 0.83-4.51 [facility] Comment on above: Performed By: #### L 505.7010, L4600.0100, L100.0100, L3890.6100, L801.1541, L801.1543, L3100.7950, L3890.6300, L3890.6200, L501.6710, L500.4050, L101.9900 #### [facility] [address] [place], [address] Absolute Neut 6.9 X10 3/uL Normal 2.0-7.7 [facility] Comment on above: Performed By: #### L 505.7010, L4600.0100, L100.0100, L3890.6100, L801.1541, L801.1543, L3100.7950, L3890.6300, L3890.6200, L501.6710, L500.4050, L101.9900 #### [facility] [address] [place], [address] Basophils/100 WBC (Bld) 0.7 % Normal 0-1 [facility] Comment on above: Performed By: #### L 505.7010, L4600.0100, L100.0100, L3890.6100, L801.1541, L801.1543, L3100.7950, L3890.6300, L3890.6200, L501.6710, L500.4050, L101.9900 #### [facility] [address] [place], [address] Eosinophils/100 WBC (Bld) 1.3 % Normal 0-5 [facility] Comment on above: Performed By: #### L 505.7010, L4600.0100, L100.0100, L3890.6100, L801.1541, L801.1543, L3100.7950, L3890.6300, L3890.6200, L501.6710, L500.4050, L101.9900 #### [facility] [address] [facility] [place], [address] Erythrocyte distribution width (RBC) [Ratio] 14.4 % Normal 11.6-14.6 [facility] Comment on above: Performed By: #### L 505.7010, L4600.0100, L100.0100, L3890.6100, L801.1541, L801.1543, L3100.7950, L3890.6300, L3890.6200, L501.6710, L500.4050, L101.9900 #### [facility] [address] [place], [address] Hematocrit (Bld) [Volume fraction] 39.0 % Normal 37-47 [facility] Comment on above: Performed By: #### L 505.7010, L4600.0100, L100.0100, L3890.6100, L801.1541, L801.1543, L3100.7950, L3890.6300, L3890.6200, L501.6710, L500.4050, L101.9900 #### [facility] [address] [facility] [place], [address] Hemoglobin (Bld) [Mass/Vol] 12.7 g/dL Normal 12.0-15.0 [facility] Comment on above: Performed By: #### L 505.7010, L4600.0100, L100.0100, L3890.6100, L801.1541, L801.1543, L3100.7950, L3890.6300, L3890.6200, L501.6710, L500.4050, L101.9900 #### [facility] [address] [place], [address] IG% 0.300 Normal 0.0-0.9 [facility] Comment on above: Result Comment: IG% - Immature Granulocytes (promyelocytes, myelocytes and metamyelocytes) > 1% indicates that a LEFT SHIFT is Present. Performed By: #### L 505.7010, L4600.0100, L100.0100, L3890.6100, L801.1541, L801.1543, L3100.7950, L3890.6300, L3890.6200, L501.6710, L500.4050, L101.9900 #### [facility] [address] [place], [address] Lymphocytes/100 WBC (Bld) 20.1 % Normal 19-41 [facility] Comment on above: Performed By: #### L 505.7010, L4600.0100, L100.0100, L3890.6100, L801.1541, L801.1543, L3100.7950, L3890.6300, L3890.6200, L501.6710, L500.4050, L101.9900 #### [facility] [address] [place], [address] MCH (RBC) [Entitic mass] 31.7 pg Normal 27.0-32.0 [facility] Comment on above: Performed By: #### L 505.7010, L4600.0100, L100.0100, L3890.6100, L801.1541, L801.1543, L3100.7950, L3890.6300, L3890.6200, L501.6710, L500.4050, L101.9900 #### [facility] [address] [place], [address] MCHC (RBC) [Mass/Vol] 32.6 g/dL Normal 32-36 [facility] Comment on above: Performed By: #### L 505.7010, L4600.0100, L100.0100, L3890.6100, L801.1541, L801.1543, L3100.7950, L3890.6300, L3890.6200, L501.6710, L500.4050, L101.9900 #### [facility] [address] [place], [address] MCV (RBC) [Entitic vol] 97.3 fL Normal 81-99 [facility] Comment on above: Performed By: #### L 505.7010, L4600.0100, L100.0100, L3890.6100, L801.1541, L801.1543, L3100.7950, L3890.6300, L3890.6200, L501.6710, L500.4050, L101.9900 #### [facility] [address] [place], [address] Monocytes/100 WBC (Bld) 9.1 % Normal 0-10 [facility] Comment on above: Performed By: #### L 505.7010, L4600.0100, L100.0100, L3890.6100, L801.1541, L801.1543, L3100.7950, L3890.6300, L3890.6200, L501.6710, L500.4050, L101.9900 #### [facility] [address] [place], [address] Neutrophils/100 WBC (Bld) 68.5 % Normal 47-70 [facility] Comment on above: Performed By: #### L 505.7010, L4600.0100, L100.0100, L3890.6100, L801.1541, L801.1543, L3100.7950, L3890.6300, L3890.6200, L501.6710, L500.4050, L101.9900 #### [facility] [address] [place], [address] Nucleated RBC (Bld) [#/Vol] 0 10*3/uL Normal 0-5 [facility] Comment on above: Performed By: #### L 505.7010, L4600.0100, L100.0100, L3890.6100, L801.1541, L801.1543, L3100.7950, L3890.6300, L3890.6200, L501.6710, L500.4050, L101.9900 #### [facility] [address] [place], [address] Platelet mean volume (Bld) [Entitic vol] 8.6 fL Normal 6.2-12.0 [facility] Comment on above: Performed By: #### L 505.7010, L4600.0100, L100.0100, L3890.6100, L801.1541, L801.1543, L3100.7950, L3890.6300, L3890.6200, L501.6710, L500.4050, L101.9900 #### [facility] [address] [place], [address] Platelets (Bld) [#/Vol] 477 10*3/uL High 150-450 [facility] Comment on above: Performed By: #### L 505.7010, L4600.0100, L100.0100, L3890.6100, L801.1541, L801.1543, L3100.7950, L3890.6300, L3890.6200, L501.6710, L500.4050, L101.9900 #### [facility] [address] [place], [address] RBC (Bld) [#/Vol] 4.01 10*6/uL Low 4.2-5.4 [facility] Comment on above: Performed By: #### L 505.7010, L4600.0100, L100.0100, L3890.6100, L801.1541, L801.1543, L3100.7950, L3890.6300, L3890.6200, L501.6710, L500.4050, L101.9900 #### [facility] [address] [place], [place], [id number] (197) RDW SD 50.2 fl High 35.1-43.9 [facility] Comment on above: Performed By: #### L 505.7010, L4600.0100, L100.0100, L3890.6100, L801.1541, L801.1543, L3100.7950, L3890.6300, L3890.6200, L501.6710, L500.4050, L101.9900 #### [facility] [address] [place], [place], [id number] WBC (Bld) [#/Vol] 10.1 10*3/uL Normal 4.4-11.0 [facility] Comment on above: Performed By: #### L 505.7010, L4600.0100, L100.0100, L3890.6100, L801.1541, L801.1543, L3100.7950, L3890.6300, L3890.6200, L501.6710, L500.4050, L101.9900 #### [facility] [address] [place], [place], [id number] Carbon dioxide measurementOr dered By: Marisel Terry on 11-01-2024 CO2 [Moles/Vol] 29.0 mmol/L 21.0-32.0 [facility] Chloride measurementOrdered By: Marisel Terry on 11-01-2024 Chloride [Moles/Vol] 106 mmol/L 98-107 [facility] Comprehensive Metabolic Prof ilon 11-01-2024 Albumin [Mass/Vol] 3.7 g/dL Normal 3.2-5.0 [facility] Comment on above: Performed By: #### L 505.7010, L4600.0100, L100.0100, L3890.6100, L801.1541, L801.1543, L3100.7950, L3890.6300, L3890.6200, L501.6710, L500.4050, L101.9900 #### [facility] [address] [place], [address] Albumin/Globulin [Mass ratio] 1.2 {ratio} Normal 0.9-2.4 [facility] Comment on above: Performed By: #### L 505.7010, L4600.0100, L100.0100, L3890.6100, L801.1541, L801.1543, L3100.7950, L3890.6300, L3890.6200, L501.6710, L500.4050, L101.9900 #### [facility] [address] [place], [place], [id number] ALK P 60 U/L Normal 45-117 [facility] Comment on above: Performed By: #### L 505.7010, L4600.0100, L100.0100, L3890.6100, L801.1541, L801.1543, L3100.7950, L3890.6300, L3890.6200, L501.6710, L500.4050, L101.9900 #### [facility] [address] [place], [address] ALT [Catalytic activity/Vol] 29 U/L Normal 13-56 [facility] Comment on above: Performed By: #### L 505.7010, L4600.0100, L100.0100, L3890.6100, L801.1541, L801.1543, L3100.7950, L3890.6300, L3890.6200, L501.6710, L500.4050, L101.9900 #### [facility] [address] [place], [address] AST [Catalytic activity/Vol] 21 U/L Normal 15-37 [facility] Comment on above: Performed By: #### L 505.7010, L4600.0100, L100.0100, L3890.6100, L801.1541, L801.1543, L3100.7950, L3890.6300, L3890.6200, L501.6710, L500.4050, L101.9900 #### [facility] [address] [place], [place], [id number] (504) Bilirubin [Mass/Vol] 0.30 mg/dL Normal 0.20-1.00 [facility] Comment on above: Result Comment: For patients on eltrombopag therapy, use of Dimension [place] TBIL is not recommended. Performed By: #### L 505.7010, L4600.0100, L100.0100, L3890.6100, L801.1541, L801.1543, L3100.7950, L3890.6300, L3890.6200, L501.6710, L500.4050, L101.9900 #### [facility] [address] [place], [address] BUN/CRE 24.1 RATIO High 10-20 [facility] Comment on above: Performed By: #### L 505.7010, L4600.0100, L100.0100, L3890.6100, L801.1541, L801.1543, L3100.7950, L3890.6300, L3890.6200, L501.6710, L500.4050, L101.9900 #### [facility] [address] [place], [address] (195) CA,Total 9.6 mg/dL Normal 8.5-10.1 [facility] Comment on above: Performed By: #### L 505.7010, L4600.0100, L100.0100, L3890.6100, L801.1541, L801.1543, L3100.7950, L3890.6300, L3890.6200, L501.6710, L500.4050, L101.9900 #### [facility] [address] [place], [address] Chloride [Moles/Vol] 106 mmol/L Normal 98-107 [facility] Comment on above: Performed By: #### L 505.7010, L4600.0100, L100.0100, L3890.6100, L801.1541, L801.1543, L3100.7950, L3890.6300, L3890.6200, L501.6710, L500.4050, L101.9900 #### [facility] [address] [place], [address] CO2 [Moles/Vol] 29.0 mmol/L Normal 21.0-32.0 [facility] Comment on above: Performed By: #### L 505.7010, L4600.0100, L100.0100, L3890.6100, L801.1541, L801.1543, L3100.7950, L3890.6300, L3890.6200, L501.6710, L500.4050, L101.9900 #### [facility] [address] [place], [address] Creatinine [Mass/Vol] 0.83 mg/dL Normal 0.55-1.02 [facility] Comment on above: Result Comment: The validity of the calculated GFR GFRAA in patients over 70 years has not been determined. Clinical correlation is essential. Performed By: #### L 505.7010, L4600.0100, L100.0100, L3890.6100, L801.1541, L801.1543, L3100.7950, L3890.6300, L3890.6200, L501.6710, L500.4050, L101.9900 #### [facility] [address] [place], [place], [id number] EST GFR - AA 88 mL/min Normal >60 [facility] Comment on above: Result Comment: Afri can [place] GFR Calc Performed By: #### L 505.7010, L4600.0100, L100.0100, L3890.6100, L801.1541, L801.1543, L3100.7950, L3890.6300, L3890.6200, L501.6710, L500.4050, L101.9900 #### [facility] [address] [place], [place], [id number] GAP 4 Low 5-15 [facility] Comment on above: Performed By: #### L 505.7010, L4600.0100, L100.0100, L3890.6100, L801.1541, L801.1543, L3100.7950, L3890.6300, L3890.6200, L501.6710, L500.4050, L101.9900 #### [facility] [address] [place], [place], [id number] GFR/1.73 sq M.predicted among non-blacks MDRD (S/P/Bld) [Vol rate/Area] 72 mL/min/{1.73_m2} Normal >60 [facility] Comment on above: Result Comment: Non- GFR Calc Performed By: #### L 505.7010, L4600.0100, L100.0100, L3890.6100, L801.1541, L801.1543, L3100.7950, L3890.6300, L3890.6200, L501.6710, L500.4050, L101.9900 #### [facility] [address] [place], [address] Globulin (S) [Mass/Vol] 3.0 g/dL Normal 2.2-4.2 [facility] Comment on above: Performed By: #### L 505.7010, L4600.0100, L100.0100, L3890.6100, L801.1541, L801.1543, L3100.7950, L3890.6300, L3890.6200, L501.6710, L500.4050, L101.9900 #### [facility] [address] [place], [address] Glucose [Mass/Vol] 96 mg/dL Normal 74-106 [facility] Comment on above: Performed By: #### L 505.7010, L4600.0100, L100.0100, L3890.6100, L801.1541, L801.1543, L3100.7950, L3890.6300, L3890.6200, L501.6710, L500.4050, L101.9900 #### [facility] [address] [place], [address] Potassium [Moles/Vol] 4.1 mmol/L Normal 3.5-5.1 [facility] Comment on above: Performed By: #### L 505.7010, L4600.0100, L100.0100, L3890.6100, L801.1541, L801.1543, L3100.7950, L3890.6300, L3890.6200, L501.6710, L500.4050, L101.9900 #### [facility] [address] [place], [address] Sodium [Moles/Vol] 139 mmol/L Normal 136-145 [facility] Comment on above: Performed By: #### L 505.7010, L4600.0100, L100.0100, L3890.6100, L801.1541, L801.1543, L3100.7950, L3890.6300, L3890.6200, L501.6710, L500.4050, L101.9900 #### [facility] [address] [place], [address] T PROT 6.7 g/dL Normal 6.4-8.2 [facility] Comment on above: Performed By: #### L 505.7010, L4600.0100, L100.0100, L3890.6100, L801.1541, L801.1543, L3100.7950, L3890.6300, L3890.6200, L501.6710, L500.4050, L101.9900 #### [facility] [address] [place], [address] Urea nitrogen [Mass/Vol] 20 mg/dL High 7-18 [facility] Comment on above: Performed By: #### L 505.7010, L4600.0100, L100.0100, L3890.6100, L801.1541, L801.1543, L3100.7950, L3890.6300, L3890.6200, L501.6710, L500.4050, L101.9900 #### [facility] [address] [place], [place], [id number] Eosinophil percentageOrdered By: Marisel Terry on 11-01-2024 Eosinophils/100 WBC (Bld) 1.3 % 0-5 [facility] Erythrocyte distribution wid th ratioOrdered By: Marisel Terry on 11-01-2024 Erythrocyte distribution width (RBC) [Ratio] 14.4 % 11.6-14.6 [facility] Erythrocyte distribution wid th standard deviationOrdered By: [facility] on 11-01-2024 Erythrocyte distribution width (RBC) [Ratio] 50.2 fl High 35.1-43.9 [facility] Glomerular filtration rate ( GFR) estimationOrdered By: Marisel Terry on 11-01-2024 GFR/1.73 sq M.predicted among non-blacks MDRD (S/P/Bld) [Vol rate/Area] 72 mL/min/{1.73_m2} >60 [facility] Comment on above: Non- GFR Calc Glucose measurementOrdered B y: Marisel Terry on 11-01-2024 Glucose [Mass/Vol] 96 mg/dL 74-106 [facility] Hematocrit Auto (Bld) [Volum e fraction]Ordered By: Marisel Terry on 11-01-2024 Hematocrit (Bld) [Volume fraction] 39.0 % 37-47 [facility] Hemoglobin measurementOrdere d By: Marisel Terry on 11-01-2024 Hemoglobin (Bld) [Mass/Vol] 12.7 g/dL 12.0-15.0 [facility] Immature granulocytes/100 WB C Auto (Bld)Ordered By: Marisel Terry on 11-01-2024 Immature granulocytes/100 WBC (Bld) 0.300 % 0.0-0.9 [facility] Comment on above: IG% - Immature Granu locytes (promyelocytes, myelocytes and metamyelocytes) > 1% indicates that a LEFT SHIFT is Present. Laboratory - Chemistry and C hemistry - challengeOrdered By: Marisel Terry on 11-01-2024 AST [Catalytic activity/Vol] 21 U/L 15-37 [facility] MCV (mean corpuscular volume ) determinationOrdered By: Marisel Terry on 11-01-2024 MCV (RBC) [Entitic vol] 97.3 fL 81-99 [facility] Mean corpuscular hemoglobin (MCH) determinationOrdered By: Marisel Terry on 11-01-2024 MCH (RBC) [Entitic mass] 31.7 pg 27.0-32.0 [facility] Mean corpuscular hemoglobin concentration (MCHC) determinationOrdered By: Marisel Terry on 11-01-2024 MCHC (RBC) [Mass/Vol] 32.6 g/dL 32-36 [facility] Mean platelet volume determi nationOrdered By: Marisel Terry on 11-01-2024 Platelet mean volume (Bld) [Entitic vol] 8.6 fL 6.2-12.0 [facility] Monocyte percentageOrdered B y: Marisel Terry on 11-01-2024 Monocytes/100 WBC (Bld) 9.1 % 0-10 [facility] Neutrophil percentageOrdered By: Marisel Terry on 11-01-2024 Neutrophils/100 WBC (Bld) 68.5 % 47-70 [facility] Nucleated red blood cell per centageOrdered By: Marisel Terry on 11-01-2024 Nucleated RBC/100 WBC (Bld) [Ratio] 0 % 0-5 [facility] Platelet countOrdered By: Ayaan Terry on 11-01-2024 Platelets (Bld) [#/Vol] 477 10*3/uL High 150-450 [facility] Potassium measurementOrdered By: Marisel Terry on 11-01-2024 Potassium [Moles/Vol] 4.1 mmol/L 3.5-5.1 [facility] RBC Auto (Bld) [#/Vol]Ordere d By: Marisel Terry on 11-01-2024 RBC (Bld) [#/Vol] 4.01 10*6/uL Low 4.2-5.4 [facility] Serum anion gap measurementO rdered By: Marisel Terry on 11-01-2024 Anion gap [Moles/Vol] 4 mmol/L Low 5-15 [facility] Serum globulin measurementOr dered By: Marisel Terry on 11-01-2024 Globulin (S) [Mass/Vol] 3.0 g/dL 2.2-4.2 [facility] Serum or plasma alanine estevez otransferase (ALT) measurementOrdered By: Marisel Terry on 11-01-2024 ALT [Catalytic activity/Vol] 29 U/L 13-56 [facility] Serum or plasma albumin linwood urement (mass/volume)Ordered By: Marisel Terry on 11-01-2024 Albumin [Mass/Vol] 3.7 g/dL 3.2-5.0 [facility] Serum or plasma alkaline kelvin sphatase measurementOrdered By: Marisel Terry on 11-01-2024 ALP [Catalytic activity/Vol] 60 U/L 45-117 [facility] Serum or plasma calcium linwood urement (mass/volume)Ordered By: Marisel Terry on 11-01-2024 Calcium [Mass/Vol] 9.6 mg/dL 8.5-10.1 [facility] Serum or plasma creatinine m easurement (mass/volume)Ordered By: Marisel Terry on 11-01-2024 Creatinine [Mass/Vol] 0.83 mg/dL 0.55-1.02 [facility] Comment on above: The validity of the calculated GFR & GFRAA in patients over 70 years has not been determined. Clinical correlation is essential. Serum or plasma urea nitroge n measurement (mass/volume)Ordered By: Marisel Terry on 11-01-2024 Urea nitrogen [Mass/Vol] 20 mg/dL High 7-18 [facility] Sodium levelOrdered By: Edson Terry on 11-01-2024 Sodium [Moles/Vol] 139 mmol/L 136-145 [facility] Total proteinOrdered By: Vicente Terry on 11-01-2024 Protein [Mass/Vol] 6.7 g/dL 6.4-8.2 [facility] White blood cell (WBC) count Ordered By: Marisel Terry on 11-01-2024 WBC (Bld) [#/Vol] 10.1 10*3/uL 4.4-11.0 [facility] CBC W/Diff, Automatedon 12-0 Absolute Lymph 1.66 X10 3/uL Normal 0.83-4.51 [facility] Comment on above: Performed By: #### L 505.7010, L4600.0100, L100.0100, L3890.6100, L801.1541, L801.1543, L3100.7950, L3890.6300, L3890.6200, L501.6710, L500.4050, L101.9900 #### [facility] [address] [place] [address]. [place], [place], [id number] Absolute Neut 5.9 X10 3/uL Normal 2.0-7.7 [facility] Comment on above: Performed By: #### L 505.7010, L4600.0100, L100.0100, L3890.6100, L801.1541, L801.1543, L3100.7950, L3890.6300, L3890.6200, L501.6710, L500.4050, L101.9900 #### [facility] [address] [place], [address] Basophils/100 WBC (Bld) 0.7 % Normal 0-1 [facility] Comment on above: Performed By: #### L 505.7010, L4600.0100, L100.0100, L3890.6100, L801.1541, L801.1543, L3100.7950, L3890.6300, L3890.6200, L501.6710, L500.4050, L101.9900 #### [facility] [address] [place], [address] Eosinophils/100 WBC (Bld) 2.4 % Normal 0-5 [facility] Comment on above: Performed By: #### L 505.7010, L4600.0100, L100.0100, L3890.6100, L801.1541, L801.1543, L3100.7950, L3890.6300, L3890.6200, L501.6710, L500.4050, L101.9900 #### [facility] [address] [place], [address] Erythrocyte distribution width (RBC) [Ratio] 14.5 % Normal 11.6-14.6 [facility] Comment on above: Performed By: #### L 505.7010, L4600.0100, L100.0100, L3890.6100, L801.1541, L801.1543, L3100.7950, L3890.6300, L3890.6200, L501.6710, L500.4050, L101.9900 #### [facility] [address] [place], [address] Hematocrit (Bld) [Volume fraction] 41.5 % Normal 37-47 [facility] Comment on above: Performed By: #### L 505.7010, L4600.0100, L100.0100, L3890.6100, L801.1541, L801.1543, L3100.7950, L3890.6300, L3890.6200, L501.6710, L500.4050, L101.9900 #### [facility] [address] [place], [address] Hemoglobin (Bld) [Mass/Vol] 13.1 g/dL Normal 12.0-15.0 [facility] Comment on above: Performed By: #### L 505.7010, L4600.0100, L100.0100, L3890.6100, L801.1541, L801.1543, L3100.7950, L3890.6300, L3890.6200, L501.6710, L500.4050, L101.9900 #### [facility] [address] [place], [address] IG% 0.300 Normal 0.0-0.9 [facility] Comment on above: Result Comment: IG% - Immature Granulocytes (promyelocytes, myelocytes and metamyelocytes) > 1% indicates that a LEFT SHIFT is Present. Performed By: #### L 505.7010, L4600.0100, L100.0100, L3890.6100, L801.1541, L801.1543, L3100.7950, L3890.6300, L3890.6200, L501.6710, L500.4050, L101.9900 #### [facility] [address] [place], [address] Lymphocytes/100 WBC (Bld) 18.8 % Low 19-41 [facility] Comment on above: Performed By: #### L 505.7010, L4600.0100, L100.0100, L3890.6100, L801.1541, L801.1543, L3100.7950, L3890.6300, L3890.6200, L501.6710, L500.4050, L101.9900 #### [facility] [address] [place], [address] MCH (RBC) [Entitic mass] 30.5 pg Normal 27.0-32.0 [facility] Comment on above: Performed By: #### L 505.7010, L4600.0100, L100.0100, L3890.6100, L801.1541, L801.1543, L3100.7950, L3890.6300, L3890.6200, L501.6710, L500.4050, L101.9900 #### [facility] [address] [place], [address] MCHC (RBC) [Mass/Vol] 31.6 g/dL Low 32-36 [facility] Comment on above: Performed By: #### L 505.7010, L4600.0100, L100.0100, L3890.6100, L801.1541, L801.1543, L3100.7950, L3890.6300, L3890.6200, L501.6710, L500.4050, L101.9900 #### [facility] [address] [place], [address] MCV (RBC) [Entitic vol] 96.5 fL Normal 81-99 [facility] Comment on above: Performed By: #### L 505.7010, L4600.0100, L100.0100, L3890.6100, L801.1541, L801.1543, L3100.7950, L3890.6300, L3890.6200, L501.6710, L500.4050, L101.9900 #### [facility] [address] [place], [address] Monocytes/100 WBC (Bld) 11.0 % High 0-10 [facility] Comment on above: Performed By: #### L 505.7010, L4600.0100, L100.0100, L3890.6100, L801.1541, L801.1543, L3100.7950, L3890.6300, L3890.6200, L501.6710, L500.4050, L101.9900 #### [facility] [address] [place], [address] Neutrophils/100 WBC (Bld) 66.8 % Normal 47-70 [facility] Comment on above: Performed By: #### L 505.7010, L4600.0100, L100.0100, L3890.6100, L801.1541, L801.1543, L3100.7950, L3890.6300, L3890.6200, L501.6710, L500.4050, L101.9900 #### [facility] [address] [place], [address] Nucleated RBC (Bld) [#/Vol] 0 10*3/uL Normal 0-5 [facility] Comment on above: Performed By: #### L 505.7010, L4600.0100, L100.0100, L3890.6100, L801.1541, L801.1543, L3100.7950, L3890.6300, L3890.6200, L501.6710, L500.4050, L101.9900 #### [facility] [address] [place], [address] Platelet mean volume (Bld) [Entitic vol] 8.7 fL Normal 6.2-12.0 [facility] Comment on above: Performed By: #### L 505.7010, L4600.0100, L100.0100, L3890.6100, L801.1541, L801.1543, L3100.7950, L3890.6300, L3890.6200, L501.6710, L500.4050, L101.9900 #### [facility] [address] [place], [address] Platelets (Bld) [#/Vol] 433 10*3/uL Normal 150-450 [facility] Comment on above: Performed By: #### L 505.7010, L4600.0100, L100.0100, L3890.6100, L801.1541, L801.1543, L3100.7950, L3890.6300, L3890.6200, L501.6710, L500.4050, L101.9900 #### [facility] [address] [place], [address] RBC (Bld) [#/Vol] 4.30 10*6/uL Normal 4.2-5.4 [facility] Comment on above: Performed By: #### L 505.7010, L4600.0100, L100.0100, L3890.6100, L801.1541, L801.1543, L3100.7950, L3890.6300, L3890.6200, L501.6710, L500.4050, L101.9900 #### [facility] [address] [place], [address] RDW SD 50.4 fl High 35.1-43.9 [facility] Comment on above: Performed By: #### L 505.7010, L4600.0100, L100.0100, L3890.6100, L801.1541, L801.1543, L3100.7950, L3890.6300, L3890.6200, L501.6710, L500.4050, L101.9900 #### [facility] [address], [address] WBC (Bld) [#/Vol] 8.8 10*3/uL Normal 4.4-11.0 [facility] Comment on above: Performed By: #### L 505.7010, L4600.0100, L100.0100, L3890.6100, L801.1541, L801.1543, L3100.7950, L3890.6300, L3890.6200, L501.6710, L500.4050, L101.9900 #### [facility] [address] [place], [address] Comprehensive Metabolic Prof ilon 09-02-2024 Albumin [Mass/Vol] 3.7 g/dL Normal 3.2-5.0 [facility] Comment on above: Performed By: #### L 505.7010, L4600.0100, L100.0100, L3890.6100, L801.1541, L801.1543, L3100.7950, L3890.6300, L3890.6200, L501.6710, L500.4050, L101.9900 #### [facility] [address] [place], [address] Albumin/Globulin [Mass ratio] 1.3 {ratio} Normal 0.9-2.4 [facility] Comment on above: Performed By: #### L 505.7010, L4600.0100, L100.0100, L3890.6100, L801.1541, L801.1543, L3100.7950, L3890.6300, L3890.6200, L501.6710, L500.4050, L101.9900 #### [facility] [address] [place], [address] ALK P 66 U/L Normal 45-117 [facility] Comment on above: Performed By: #### L 505.7010, L4600.0100, L100.0100, L3890.6100, L801.1541, L801.1543, L3100.7950, L3890.6300, L3890.6200, L501.6710, L500.4050, L101.9900 #### [facility] [address] [place], [address] ALT [Catalytic activity/Vol] 34 U/L Normal 13-56 [facility] Comment on above: Performed By: #### L 505.7010, L4600.0100, L100.0100, L3890.6100, L801.1541, L801.1543, L3100.7950, L3890.6300, L3890.6200, L501.6710, L500.4050, L101.9900 #### [facility] [address] [place], [address] AST [Catalytic activity/Vol] 31 U/L Normal 15-37 [facility] Comment on above: Performed By: #### L 505.7010, L4600.0100, L100.0100, L3890.6100, L801.1541, L801.1543, L3100.7950, L3890.6300, L3890.6200, L501.6710, L500.4050, L101.9900 #### [facility] [address] [place], [address] Bilirubin [Mass/Vol] 0.60 mg/dL Normal 0.20-1.00 [facility] Comment on above: Result Comment: For patients on eltrombopag therapy, use of Dimension [place] TBIL is not recommended. Performed By: #### L 505.7010, L4600.0100, L100.0100, L3890.6100, L801.1541, L801.1543, L3100.7950, L3890.6300, L3890.6200, L501.6710, L500.4050, L101.9900 #### [facility] [address] [place], [address] BUN/CRE 22.9 RATIO High 10-20 [facility] Comment on above: Performed By: #### L 505.7010, L4600.0100, L100.0100, L3890.6100, L801.1541, L801.1543, L3100.7950, L3890.6300, L3890.6200, L501.6710, L500.4050, L101.9900 #### [facility] [address] [place], [address] CA,Total 10.0 mg/dL Normal 8.5-10.1 [facility] Comment on above: Performed By: #### L 505.7010, L4600.0100, L100.0100, L3890.6100, L801.1541, L801.1543, L3100.7950, L3890.6300, L3890.6200, L501.6710, L500.4050, L101.9900 #### [facility] [facility] [address] [place], [address] Chloride [Moles/Vol] 106 mmol/L Normal 98-107 [facility] Comment on above: Performed By: #### L 505.7010, L4600.0100, L100.0100, L3890.6100, L801.1541, L801.1543, L3100.7950, L3890.6300, L3890.6200, L501.6710, L500.4050, L101.9900 #### [facility] [address] [place], [address] CO2 [Moles/Vol] 29.0 mmol/L Normal 21.0-32.0 [facility] Comment on above: Performed By: #### L 505.7010, L4600.0100, L100.0100, L3890.6100, L801.1541, L801.1543, L3100.7950, L3890.6300, L3890.6200, L501.6710, L500.4050, L101.9900 #### [facility] [address] [place], [address] Creatinine [Mass/Vol] 0.83 mg/dL Normal 0.55-1.02 [facility] Comment on above: Result Comment: The validity of the calculated GFR GFRAA in patients over 70 years has not been determined. Clinical correlation is essential. Performed By: #### L 505.7010, L4600.0100, L100.0100, L3890.6100, L801.1541, L801.1543, L3100.7950, L3890.6300, L3890.6200, L501.6710, L500.4050, L101.9900 #### [facility] [address] [place], [address] EST GFR - AA 88 mL/min Normal >60 [facility] Comment on above: Result Comment: Afri can [place] GFR Calc Performed By: #### L 505.7010, L4600.0100, L100.0100, L3890.6100, L801.1541, L801.1543, L3100.7950, L3890.6300, L3890.6200, L501.6710, L500.4050, L101.9900 #### [facility] [address] [place], [address] GAP 4 Low 5-15 [facility] Comment on above: Performed By: #### L 505.7010, L4600.0100, L100.0100, L3890.6100, L801.1541, L801.1543, L3100.7950, L3890.6300, L3890.6200, L501.6710, L500.4050, L101.9900 #### [facility] [address] [address] [place], [place], [id number] (544) GFR/1.73 sq M.predicted among non-blacks MDRD (S/P/Bld) [Vol rate/Area] 72 mL/min/{1.73_m2} Normal >60 [facility] Comment on above: Result Comment: Non- GFR Calc Performed By: #### L 505.7010, L4600.0100, L100.0100, L3890.6100, L801.1541, L801.1543, L3100.7950, L3890.6300, L3890.6200, L501.6710, L500.4050, L101.9900 #### [facility] [address] [place], [address] (616) Globulin (S) [Mass/Vol] 2.9 g/dL Normal 2.2-4.2 [facility] Comment on above: Performed By: #### L 505.7010, L4600.0100, L100.0100, L3890.6100, L801.1541, L801.1543, L3100.7950, L3890.6300, L3890.6200, L501.6710, L500.4050, L101.9900 #### [facility] [address] [place], [place], [id number] Glucose [Mass/Vol] 114 mg/dL High 74-106 [facility] Comment on above: Result Comment: Fast ing Glucose result from 100 to 125 mg/dL suggests IMPAIRED HOMEOSTASIS per A.D.A. criteria. Performed By: #### L 505.7010, L4600.0100, L100.0100, L3890.6100, L801.1541, L801.1543, L3100.7950, L3890.6300, L3890.6200, L501.6710, L500.4050, L101.9900 #### [facility] [address] [place], [address] Potassium [Moles/Vol] 4.5 mmol/L Normal 3.5-5.1 [facility] Comment on above: Performed By: #### L 505.7010, L4600.0100, L100.0100, L3890.6100, L801.1541, L801.1543, L3100.7950, L3890.6300, L3890.6200, L501.6710, L500.4050, L101.9900 #### [facility] [address] [place], [address] Sodium [Moles/Vol] 139 mmol/L Normal 136-145 [facility] Comment on above: Performed By: #### L 505.7010, L4600.0100, L100.0100, L3890.6100, L801.1541, L801.1543, L3100.7950, L3890.6300, L3890.6200, L501.6710, L500.4050, L101.9900 #### [facility] [address] [place], [address] T PROT 6.6 g/dL Normal 6.4-8.2 [facility] Comment on above: Performed By: #### L 505.7010, L4600.0100, L100.0100, L3890.6100, L801.1541, L801.1543, L3100.7950, L3890.6300, L3890.6200, L501.6710, L500.4050, L101.9900 #### [facility] [address] [place], [address] Urea nitrogen [Mass/Vol] 19 mg/dL High 7-18 [facility] Comment on above: Performed By: #### L 505.7010, L4600.0100, L100.0100, L3890.6100, L801.1541, L801.1543, L3100.7950, L3890.6300, L3890.6200, L501.6710, L500.4050, L101.9900 #### [facility] [address] [place], [place], [id number] (592) CBC W/Diff, Automatedon 10-0 -2023 Absolute Lymph 2.03 X10 3/uL Normal 0.83-4.51 [facility] Comment on above: Performed By: #### L 505.7010, L4600.0100, L100.0100, L3890.6100, L801.1541, L801.1543, L3100.7950, L3890.6300, L3890.6200, L501.6710, L500.4050, L101.9900 #### [facility] [address] [place], [place], [id number] (307) Absolute Neut 5.1 X10 3/uL Normal 2.0-7.7 [facility] Comment on above: Performed By: #### L 505.7010, L4600.0100, L100.0100, L3890.6100, L801.1541, L801.1543, L3100.7950, L3890.6300, L3890.6200, L501.6710, L500.4050, L101.9900 #### [facility] [address] [place], [place], [phone] (217) Basophils/100 WBC (Bld) 0.9 % Normal 0-1 [facility] Comment on above: Performed By: #### L 505.7010, L4600.0100, L100.0100, L3890.6100, L801.1541, L801.1543, L3100.7950, L3890.6300, L3890.6200, L501.6710, L500.4050, L101.9900 #### [facility] [address] [place], [address] Eosinophils/100 WBC (Bld) 2.0 % Normal 0-5 [facility] Comment on above: Performed By: #### L 505.7010, L4600.0100, L100.0100, L3890.6100, L801.1541, L801.1543, L3100.7950, L3890.6300, L3890.6200, L501.6710, L500.4050, L101.9900 #### [facility] [address] [place], [address] Erythrocyte distribution width (RBC) [Ratio] 13.3 % Normal 11.6-14.6 [facility] Comment on above: Performed By: #### L 505.7010, L4600.0100, L100.0100, L3890.6100, L801.1541, L801.1543, L3100.7950, L3890.6300, L3890.6200, L501.6710, L500.4050, L101.9900 #### [facility] [address] [place], [address] Hematocrit (Bld) [Volume fraction] 41.9 % Normal 37-47 [facility] Comment on above: Performed By: #### L 505.7010, L4600.0100, L100.0100, L3890.6100, L801.1541, L801.1543, L3100.7950, L3890.6300, L3890.6200, L501.6710, L500.4050, L101.9900 #### [facility] [address] [place], [address] Hemoglobin (Bld) [Mass/Vol] 13.3 g/dL Normal 12.0-15.0 [facility] Comment on above: Performed By: #### L 505.7010, L4600.0100, L100.0100, L3890.6100, L801.1541, L801.1543, L3100.7950, L3890.6300, L3890.6200, L501.6710, L500.4050, L101.9900 #### [facility] [address] [place], [address] IG% 0.500 Normal 0.0-0.9 [facility] Comment on above: Result Comment: IG% - Immature Granulocytes (promyelocytes, myelocytes and metamyelocytes) > 1% indicates that a LEFT SHIFT is Present. Performed By: #### L 505.7010, L4600.0100, L100.0100, L3890.6100, L801.1541, L801.1543, L3100.7950, L3890.6300, L3890.6200, L501.6710, L500.4050, L101.9900 #### [facility] [address] [place], [address] Lymphocytes/100 WBC (Bld) 24.9 % Normal 19-41 [facility] Comment on above: Performed By: #### L 505.7010, L4600.0100, L100.0100, L3890.6100, L801.1541, L801.1543, L3100.7950, L3890.6300, L3890.6200, L501.6710, L500.4050, L101.9900 #### [facility] [address] [place], [address] MCH (RBC) [Entitic mass] 29.6 pg Normal 27.0-32.0 [facility] Comment on above: Performed By: #### L 505.7010, L4600.0100, L100.0100, L3890.6100, L801.1541, L801.1543, L3100.7950, L3890.6300, L3890.6200, L501.6710, L500.4050, L101.9900 #### [facility] [address] [place], [address] MCHC (RBC) [Mass/Vol] 31.7 g/dL Low 32-36 [facility] Comment on above: Performed By: #### L 505.7010, L4600.0100, L100.0100, L3890.6100, L801.1541, L801.1543, L3100.7950, L3890.6300, L3890.6200, L501.6710, L500.4050, L101.9900 #### [facility] [address] [place], [address] MCV (RBC) [Entitic vol] 93.1 fL Normal 81-99 [facility] Comment on above: Performed By: #### L 505.7010, L4600.0100, L100.0100, L3890.6100, L801.1541, L801.1543, L3100.7950, L3890.6300, L3890.6200, L501.6710, L500.4050, L101.9900 #### [facility] [address] [place], [address] Monocytes/100 WBC (Bld) 9.9 % Normal 0-10 [facility] Comment on above: Performed By: #### L 505.7010, L4600.0100, L100.0100, L3890.6100, L801.1541, L801.1543, L3100.7950, L3890.6300, L3890.6200, L501.6710, L500.4050, L101.9900 #### [facility] [address] [place], [address] Neutrophils/100 WBC (Bld) 61.8 % Normal 47-70 [facility] Comment on above: Performed By: #### L 505.7010, L4600.0100, L100.0100, L3890.6100, L801.1541, L801.1543, L3100.7950, L3890.6300, L3890.6200, L501.6710, L500.4050, L101.9900 #### [facility] [address] [place], [place], [id number] (715) Nucleated RBC (Bld) [#/Vol] 0 10*3/uL Normal 0-5 [facility] Comment on above: Performed By: #### L 505.7010, L4600.0100, L100.0100, L3890.6100, L801.1541, L801.1543, L3100.7950, L3890.6300, L3890.6200, L501.6710, L500.4050, L101.9900 #### [facility] [address] [place], [address] (717) Platelet mean volume (Bld) [Entitic vol] 8.3 fL Normal 6.2-12.0 [facility] Comment on above: Performed By: #### L 505.7010, L4600.0100, L100.0100, L3890.6100, L801.1541, L801.1543, L3100.7950, L3890.6300, L3890.6200, L501.6710, L500.4050, L101.9900 #### [facility] [address] [place], [place], [id number] (636) Platelets (Bld) [#/Vol] 472 10*3/uL High 150-450 [facility] Comment on above: Performed By: #### L 505.7010, L4600.0100, L100.0100, L3890.6100, L801.1541, L801.1543, L3100.7950, L3890.6300, L3890.6200, L501.6710, L500.4050, L101.9900 #### [facility] [address] [place], [place], [id number] RBC (Bld) [#/Vol] 4.50 10*6/uL Normal 4.2-5.4 [facility] Comment on above: Performed By: #### L 505.7010, L4600.0100, L100.0100, L3890.6100, L801.1541, L801.1543, L3100.7950, L3890.6300, L3890.6200, L501.6710, L500.4050, L101.9900 #### [facility] [address] [place], [place], [id number] RDW SD 44.9 fl High 35.1-43.9 [facility] Comment on above: Performed By: #### L 505.7010, L4600.0100, L100.0100, L3890.6100, L801.1541, L801.1543, L3100.7950, L3890.6300, L3890.6200, L501.6710, L500.4050, L101.9900 #### [facility] [address] [place], [place], [id number] WBC (Bld) [#/Vol] 8.2 10*3/uL Normal 4.4-11.0 [facility] Comment on above: Performed By: #### L 505.7010, L4600.0100, L100.0100, L3890.6100, L801.1541, L801.1543, L3100.7950, L3890.6300, L3890.6200, L501.6710, L500.4050, L101.9900 #### [facility] [address] [place], [address] Comprehensive Metabolic Prof ilon 07-04-2024 Albumin [Mass/Vol] 3.6 g/dL Normal 3.2-5.0 [facility] Comment on above: Performed By: #### L 505.7010, L4600.0100, L100.0100, L3890.6100, L801.1541, L801.1543, L3100.7950, L3890.6300, L3890.6200, L501.6710, L500.4050, L101.9900 #### [facility] [address] [place], [place], [id number] (834) Albumin/Globulin [Mass ratio] 1.2 {ratio} Normal 0.9-2.4 [facility] Comment on above: Performed By: #### L 505.7010, L4600.0100, L100.0100, L3890.6100, L801.1541, L801.1543, L3100.7950, L3890.6300, L3890.6200, L501.6710, L500.4050, L101.9900 #### [facility] [address] [place], [place], [id number] ALK P 55 U/L Normal 45-117 [facility] Comment on above: Performed By: #### L 505.7010, L4600.0100, L100.0100, L3890.6100, L801.1541, L801.1543, L3100.7950, L3890.6300, L3890.6200, L501.6710, L500.4050, L101.9900 #### [facility] [address] [place], [place], [id number] ALT [Catalytic activity/Vol] 24 U/L Normal 13-56 [facility] Comment on above: Performed By: #### L 505.7010, L4600.0100, L100.0100, L3890.6100, L801.1541, L801.1543, L3100.7950, L3890.6300, L3890.6200, L501.6710, L500.4050, L101.9900 #### [facility] [address] [place], [place], [id number] (402) AST [Catalytic activity/Vol] 25 U/L Normal 15-37 [facility] Comment on above: Performed By: #### L 505.7010, L4600.0100, L100.0100, L3890.6100, L801.1541, L801.1543, L3100.7950, L3890.6300, L3890.6200, L501.6710, L500.4050, L101.9900 #### [facility] [address] [place], [address] Bilirubin [Mass/Vol] 0.50 mg/dL Normal 0.20-1.00 [facility] Comment on above: Result Comment: For patients on eltrombopag therapy, use of Dimension [place] TBIL is not recommended. Performed By: #### L 505.7010, L4600.0100, L100.0100, L3890.6100, L801.1541, L801.1543, L3100.7950, L3890.6300, L3890.6200, L501.6710, L500.4050, L101.9900 #### [facility] [address] [place], [place], [phone] (449) BUN/CRE 28.3 RATIO High 10-20 [facility] Comment on above: Performed By: #### L 505.7010, L4600.0100, L100.0100, L3890.6100, L801.1541, L801.1543, L3100.7950, L3890.6300, L3890.6200, L501.6710, L500.4050, L101.9900 #### [facility] [address] [place], [address] CA,Total 10.0 mg/dL Normal 8.5-10.1 [facility] Comment on above: Performed By: #### L 505.7010, L4600.0100, L100.0100, L3890.6100, L801.1541, L801.1543, L3100.7950, L3890.6300, L3890.6200, L501.6710, L500.4050, L101.9900 #### [facility] [address] [place], [place], [id number] (909) Chloride [Moles/Vol] 106 mmol/L Normal 98-107 [facility] Comment on above: Performed By: #### L 505.7010, L4600.0100, L100.0100, L3890.6100, L801.1541, L801.1543, L3100.7950, L3890.6300, L3890.6200, L501.6710, L500.4050, L101.9900 #### [facility] [address] [place], [address] CO2 [Moles/Vol] 28.0 mmol/L Normal 21.0-32.0 [facility] Comment on above: Performed By: #### L 505.7010, L4600.0100, L100.0100, L3890.6100, L801.1541, L801.1543, L3100.7950, L3890.6300, L3890.6200, L501.6710, L500.4050, L101.9900 #### [facility] [address] [place], [address] Creatinine [Mass/Vol] 0.85 mg/dL Normal 0.55-1.02 [facility] Comment on above: Result Comment: The validity of the calculated GFR GFRAA in patients over 70 years has not been determined. Clinical correlation is essential. Performed By: #### L 505.7010, L4600.0100, L100.0100, L3890.6100, L801.1541, L801.1543, L3100.7950, L3890.6300, L3890.6200, L501.6710, L500.4050, L101.9900 #### [facility] [address] [place], [place], [id number] EST GFR - AA 85 mL/min Normal >60 [facility] Comment on above: Result Comment: Afri can [place] GFR Calc Performed By: #### L 505.7010, L4600.0100, L100.0100, L3890.6100, L801.1541, L801.1543, L3100.7950, L3890.6300, L3890.6200, L501.6710, L500.4050, L101.9900 #### [facility] [address] [place], [place], [id number] GAP 4 Low 5-15 [facility] Comment on above: Performed By: #### L 505.7010, L4600.0100, L100.0100, L3890.6100, L801.1541, L801.1543, L3100.7950, L3890.6300, L3890.6200, L501.6710, L500.4050, L101.9900 #### [facility] [address] [place], [address] GFR/1.73 sq M.predicted among non-blacks MDRD (S/P/Bld) [Vol rate/Area] 71 mL/min/{1.73_m2} Normal >60 [facility] Comment on above: Result Comment: Non- GFR Calc Performed By: #### L 505.7010, L4600.0100, L100.0100, L3890.6100, L801.1541, L801.1543, L3100.7950, L3890.6300, L3890.6200, L501.6710, L500.4050, L101.9900 #### [facility] [address] [place], [address] Globulin (S) [Mass/Vol] 2.9 g/dL Normal 2.2-4.2 [facility] Comment on above: Performed By: #### L 505.7010, L4600.0100, L100.0100, L3890.6100, L801.1541, L801.1543, L3100.7950, L3890.6300, L3890.6200, L501.6710, L500.4050, L101.9900 #### [facility] [address] [place], [address] Glucose [Mass/Vol] 103 mg/dL Normal 74-106 [facility] Comment on above: Result Comment: Fast ing Glucose result from 100 to 125 mg/dL suggests IMPAIRED HOMEOSTASIS per A.D.A. criteria. Performed By: #### L 505.7010, L4600.0100, L100.0100, L3890.6100, L801.1541, L801.1543, L3100.7950, L3890.6300, L3890.6200, L501.6710, L500.4050, L101.9900 #### [facility] [address] [place], [address] Potassium [Moles/Vol] 5.0 mmol/L Normal 3.5-5.1 [facility] Comment on above: Performed By: #### L 505.7010, L4600.0100, L100.0100, L3890.6100, L801.1541, L801.1543, L3100.7950, L3890.6300, L3890.6200, L501.6710, L500.4050, L101.9900 #### [facility] [address] [place], [address] Sodium [Moles/Vol] 138 mmol/L Normal 136-145 [facility] Comment on above: Performed By: #### L 505.7010, L4600.0100, L100.0100, L3890.6100, L801.1541, L801.1543, L3100.7950, L3890.6300, L3890.6200, L501.6710, L500.4050, L101.9900 #### [facility] [address] [place], [address] T PROT 6.5 g/dL Normal 6.4-8.2 [facility] Comment on above: Performed By: #### L 505.7010, L4600.0100, L100.0100, L3890.6100, L801.1541, L801.1543, L3100.7950, L3890.6300, L3890.6200, L501.6710, L500.4050, L101.9900 #### [facility] [address] [place], [address] Urea nitrogen [Mass/Vol] 24 mg/dL High 7-18 [facility] Comment on above: Performed By: #### L 505.7010, L4600.0100, L100.0100, L3890.6100, L801.1541, L801.1543, L3100.7950, L3890.6300, L3890.6200, L501.6710, L500.4050, L101.9900 #### [facility] [address] [place], [address] Miscellaneous Lab Procedureo n 05-21-2024 [facility] LAB TEST Normal [facility] Comment on above: Order Comment: [id number] APR3 SERUM RT Result Comment: TEST RESULTS LIMITS Anti-PR3 Antibodies <0.2 units 0.0-0.9 TESTING PERFORMED AT [facility]. ORIGINAL REPORT ON FILE IN LAB CONTAINS ADDITIONAL TEST SITE INFORMATION. Performed By: #### L 505.7010, L4600.0100, L100.0100, L3890.6100, L801.1541, L801.1543, L3100.7950, L3890.6300, L3890.6200, L501.6710, L500.4050, L101.9900 #### [facility] [address] [place], [address] Miscellaneous Lab Procedure 2on 05-21-2024 [facility] LAB TEST 2 Normal [facility] Comment on above: Order Comment: [id number] MPO SERUM RT Result Comment: TEST RESULTS LIMITS Anti-MPO Antibodies 0.4 units 0.0-0.9 TESTING PERFORMED AT [facility]. ORIGINAL REPORT ON FILE IN LAB CONTAINS ADDITIONAL TEST SITE INFORMATION. Performed By: #### L 505.7010, L4600.0100, L100.0100, L3890.6100, L801.1541, L801.1543, L3100.7950, L3890.6300, L3890.6200, L501.6710, L500.4050, L101.9900 #### [facility] [address] [place], [place], [id number] Antinuclear Antibody, IFAon 05-20-2024 JESUS, IFA Negative Normal . [facility] Comment on above: Result Comment: Nega tive <1:80 Borderline 1:80 Positive >1:80 ICAP nomenclature: AC-0 For more information about Hep-2 cell patterns use ANApatterns.org, the official website for the International Consensus on Antinuclear Antibody (JESUS) Patterns (ICAP). Performed at: [address] [id number] Sport Intern: Cruz Irizarry PhD, Phone: [phone] Performed By: #### L 505.7010, L4600.0100, L100.0100, L3890.6100, L801.1541, L801.1543, L3100.7950, L3890.6300, L3890.6200, L501.6710, L500.4050, L101.9900 #### [facility] [address] [place], [address] CCP IgG Antibodieson 024 CCP IgG Ab. 4 units Normal 0-19 [facility] Comment on above: Result Comment: Nega tive <20 Weak positive 20 - 39 Moderate positive 40 - 59 Strong positive >59 Performed at: [address] [id number] [employer] Intern: Cruz Irizarry PhD, Phone: [phone] Performed By: #### L 505.7010, L4600.0100, L100.0100, L3890.6100, L801.1541, L801.1543, L3100.7950, L3890.6300, L3890.6200, L501.6710, L500.4050, L101.9900 #### [facility] [address] [place], [address] CBC W/Diff, Automatedon 05-02 Absolute Lymph 1.72 X10 3/uL Normal 0.83-4.51 [facility] Comment on above: Performed By: #### L 505.7010, L4600.0100, L100.0100, L3890.6100, L801.1541, L801.1543, L3100.7950, L3890.6300, L3890.6200, L501.6710, L500.4050, L101.9900 #### [facility] [address] [place], [address] Absolute Neut 4.9 X10 3/uL Normal 2.0-7.7 [facility] Comment on above: Performed By: #### L 505.7010, L4600.0100, L100.0100, L3890.6100, L801.1541, L801.1543, L3100.7950, L3890.6300, L3890.6200, L501.6710, L500.4050, L101.9900 #### [facility] [address] [facility] [place], [address] Basophils/100 WBC (Bld) 0.8 % Normal 0-1 [facility] Comment on above: Performed By: #### L 505.7010, L4600.0100, L100.0100, L3890.6100, L801.1541, L801.1543, L3100.7950, L3890.6300, L3890.6200, L501.6710, L500.4050, L101.9900 #### [facility] [address] [place], [address] Eosinophils/100 WBC (Bld) 1.9 % Normal 0-5 [facility] Comment on above: Performed By: #### L 505.7010, L4600.0100, L100.0100, L3890.6100, L801.1541, L801.1543, L3100.7950, L3890.6300, L3890.6200, L501.6710, L500.4050, L101.9900 #### [facility] [address] [place], [address] Erythrocyte distribution width (RBC) [Ratio] 13.2 % Normal 11.6-14.6 [facility] Comment on above: Performed By: #### L 505.7010, L4600.0100, L100.0100, L3890.6100, L801.1541, L801.1543, L3100.7950, L3890.6300, L3890.6200, L501.6710, L500.4050, L101.9900 #### [facility] [address] [place], [address] (815) Hematocrit (Bld) [Volume fraction] 42.4 % Normal 37-47 [facility] Comment on above: Performed By: #### L 505.7010, L4600.0100, L100.0100, L3890.6100, L801.1541, L801.1543, L3100.7950, L3890.6300, L3890.6200, L501.6710, L500.4050, L101.9900 #### [facility] [address] [place], [address] Hemoglobin (Bld) [Mass/Vol] 13.7 g/dL Normal 12.0-15.0 [facility] Comment on above: Performed By: #### L 505.7010, L4600.0100, L100.0100, L3890.6100, L801.1541, L801.1543, L3100.7950, L3890.6300, L3890.6200, L501.6710, L500.4050, L101.9900 #### [facility] [address] [place], [address] IG% 0.300 Normal 0.0-0.9 [facility] Comment on above: Result Comment: IG% - Immature Granulocytes (promyelocytes, myelocytes and metamyelocytes) > 1% indicates that a LEFT SHIFT is Present. Performed By: #### L 505.7010, L4600.0100, L100.0100, L3890.6100, L801.1541, L801.1543, L3100.7950, L3890.6300, L3890.6200, L501.6710, L500.4050, L101.9900 #### [facility] [address] [place], [address] Lymphocytes/100 WBC (Bld) 23.0 % Normal 19-41 [facility] Comment on above: Performed By: #### L 505.7010, L4600.0100, L100.0100, L3890.6100, L801.1541, L801.1543, L3100.7950, L3890.6300, L3890.6200, L501.6710, L500.4050, L101.9900 #### [facility] [address] [facility]. [place], [place], [id number] (732) MCH (RBC) [Entitic mass] 30.4 pg Normal 27.0-32.0 [facility] Comment on above: Performed By: #### L 505.7010, L4600.0100, L100.0100, L3890.6100, L801.1541, L801.1543, L3100.7950, L3890.6300, L3890.6200, L501.6710, L500.4050, L101.9900 #### [facility] [address] [place], [place], [id number] (025) MCHC (RBC) [Mass/Vol] 32.3 g/dL Normal 32-36 [facility] Comment on above: Performed By: #### L 505.7010, L4600.0100, L100.0100, L3890.6100, L801.1541, L801.1543, L3100.7950, L3890.6300, L3890.6200, L501.6710, L500.4050, L101.9900 #### [facility] [address] [place], [address] MCV (RBC) [Entitic vol] 94.0 fL Normal 81-99 [facility] Comment on above: Performed By: #### L 505.7010, L4600.0100, L100.0100, L3890.6100, L801.1541, L801.1543, L3100.7950, L3890.6300, L3890.6200, L501.6710, L500.4050, L101.9900 #### [facility] [address] [place], [address] Monocytes/100 WBC (Bld) 9.2 % Normal 0-10 [facility] Comment on above: Performed By: #### L 505.7010, L4600.0100, L100.0100, L3890.6100, L801.1541, L801.1543, L3100.7950, L3890.6300, L3890.6200, L501.6710, L500.4050, L101.9900 #### [facility] [address] [place], [address] Neutrophils/100 WBC (Bld) 64.8 % Normal 47-70 [facility] Comment on above: Performed By: #### L 505.7010, L4600.0100, L100.0100, L3890.6100, L801.1541, L801.1543, L3100.7950, L3890.6300, L3890.6200, L501.6710, L500.4050, L101.9900 #### [facility] [address] [place], [address] Nucleated RBC (Bld) [#/Vol] 0 10*3/uL Normal 0-5 [facility] Comment on above: Performed By: #### L 505.7010, L4600.0100, L100.0100, L3890.6100, L801.1541, L801.1543, L3100.7950, L3890.6300, L3890.6200, L501.6710, L500.4050, L101.9900 #### [facility] [address] [place], [place], [id number] (163) Platelet mean volume (Bld) [Entitic vol] 8.6 fL Normal 6.2-12.0 [facility] Comment on above: Performed By: #### L 505.7010, L4600.0100, L100.0100, L3890.6100, L801.1541, L801.1543, L3100.7950, L3890.6300, L3890.6200, L501.6710, L500.4050, L101.9900 #### [facility] [address] [place], [address] (142) Platelets (Bld) [#/Vol] 449 10*3/uL Normal 150-450 [facility] Comment on above: Performed By: #### L 505.7010, L4600.0100, L100.0100, L3890.6100, L801.1541, L801.1543, L3100.7950, L3890.6300, L3890.6200, L501.6710, L500.4050, L101.9900 #### [facility] [address] [place], [place], [id number] (414 RBC (Bld) [#/Vol] 4.51 10*6/uL Normal 4.2-5.4 [facility] Comment on above: Performed By: #### L 505.7010, L4600.0100, L100.0100, L3890.6100, L801.1541, L801.1543, L3100.7950, L3890.6300, L3890.6200, L501.6710, L500.4050, L101.9900 #### [facility] [address] [place], [place], [id number] RDW SD 45.7 fl High 35.1-43.9 [facility] Comment on above: Performed By: #### L 505.7010, L4600.0100, L100.0100, L3890.6100, L801.1541, L801.1543, L3100.7950, L3890.6300, L3890.6200, L501.6710, L500.4050, L101.9900 #### [facility] [address] [place], [place], [id number] WBC (Bld) [#/Vol] 7.5 10*3/uL Normal 4.4-11.0 [facility] Comment on above: Performed By: #### L 505.7010, L4600.0100, L100.0100, L3890.6100, L801.1541, L801.1543, L3100.7950, L3890.6300, L3890.6200, L501.6710, L500.4050, L101.9900 #### [facility] [address] [place], [address] CRPon 05-15-2024 C-REACTIVE PROT < 2.90 Normal 0.0-3.0 [facility] Comment on above: Result Comment: C-Re active Protein (CRP) provides useful information for the diagnosis, therapy and monitoring of inflammatory processes and associated diseases. For the evaluation of Relative Risk for Cardiovascular Disease, a High Sensitivity CRP (HSCRP) should be ordered. Performed By: #### L 505.7010, L4600.0100, L100.0100, L3890.6100, L801.1541, L801.1543, L3100.7950, L3890.6300, L3890.6200, L501.6710, L500.4050, L101.9900 #### [facility] [address] [place], [place], [id number] [facility] rijuliette 05-15-2024 Albumin [Mass/Vol] 3.6 g/dL Normal 3.2-5.0 [facility] Comment on above: Performed By: #### L 505.7010, L4600.0100, L100.0100, L3890.6100, L801.1541, L801.1543, L3100.7950, L3890.6300, L3890.6200, L501.6710, L500.4050, L101.9900 #### [facility] [address] [place], [address] Albumin/Globulin [Mass ratio] 1.2 {ratio} Normal 0.9-2.4 [facility] Comment on above: Performed By: #### L 505.7010, L4600.0100, L100.0100, L3890.6100, L801.1541, L801.1543, L3100.7950, L3890.6300, L3890.6200, L501.6710, L500.4050, L101.9900 #### [facility] [address] [place], [address] ALK P 62 U/L Normal 45-117 [facility] Comment on above: Performed By: #### L 505.7010, L4600.0100, L100.0100, L3890.6100, L801.1541, L801.1543, L3100.7950, L3890.6300, L3890.6200, L501.6710, L500.4050, L101.9900 #### [facility] [address] [place], [address] ALT [Catalytic activity/Vol] 26 U/L Normal 13-56 [facility] Comment on above: Performed By: #### L 505.7010, L4600.0100, L100.0100, L3890.6100, L801.1541, L801.1543, L3100.7950, L3890.6300, L3890.6200, L501.6710, L500.4050, L101.9900 #### [facility] [address] [place], [address] AST [Catalytic activity/Vol] 30 U/L Normal 15-37 [facility] Comment on above: Performed By: #### L 505.7010, L4600.0100, L100.0100, L3890.6100, L801.1541, L801.1543, L3100.7950, L3890.6300, L3890.6200, L501.6710, L500.4050, L101.9900 #### [facility] [address] [place], [address] Bilirubin [Mass/Vol] 0.30 mg/dL Normal 0.20-1.00 [facility] Comment on above: Result Comment: For patients on eltrombopag therapy, use of Dimension [place] TBIL is not recommended. Performed By: #### L 505.7010, L4600.0100, L100.0100, L3890.6100, L801.1541, L801.1543, L3100.7950, L3890.6300, L3890.6200, L501.6710, L500.4050, L101.9900 #### [facility] [address] [place], [address] BUN/CRE 20.8 RATIO High 10-20 [facility] Comment on above: Performed By: #### L 505.7010, L4600.0100, L100.0100, L3890.6100, L801.1541, L801.1543, L3100.7950, L3890.6300, L3890.6200, L501.6710, L500.4050, L101.9900 #### [facility] [address] [place], [address] CA,Total 10.0 mg/dL Normal 8.5-10.1 [facility] Comment on above: Performed By: #### L 505.7010, L4600.0100, L100.0100, L3890.6100, L801.1541, L801.1543, L3100.7950, L3890.6300, L3890.6200, L501.6710, L500.4050, L101.9900 #### [facility] [address] [place], [address] Chloride [Moles/Vol] 105 mmol/L Normal 98-107 [facility] Comment on above: Performed By: #### L 505.7010, L4600.0100, L100.0100, L3890.6100, L801.1541, L801.1543, L3100.7950, L3890.6300, L3890.6200, L501.6710, L500.4050, L101.9900 #### [facility] [address] [place], [place], [id number] (621) CO2 [Moles/Vol] 30.0 mmol/L Normal 21.0-32.0 [facility] Comment on above: Performed By: #### L 505.7010, L4600.0100, L100.0100, L3890.6100, L801.1541, L801.1543, L3100.7950, L3890.6300, L3890.6200, L501.6710, L500.4050, L101.9900 #### [facility] [address] [place], [address] Creatinine [Mass/Vol] 0.86 mg/dL Normal 0.55-1.02 [facility] Comment on above: Result Comment: The validity of the calculated GFR GFRAA in patients over 70 years has not been determined. Clinical correlation is essential. Performed By: #### L 505.7010, L4600.0100, L100.0100, L3890.6100, L801.1541, L801.1543, L3100.7950, L3890.6300, L3890.6200, L501.6710, L500.4050, L101.9900 #### [facility] [address] [place], [place], [id number] EST GFR - AA 84 mL/min Normal >60 [facility] Comment on above: Result Comment: Afri can [place] GFR Calc Performed By: #### L 505.7010, L4600.0100, L100.0100, L3890.6100, L801.1541, L801.1543, L3100.7950, L3890.6300, L3890.6200, L501.6710, L500.4050, L101.9900 #### [facility] [address] [place], [place], [id number] GAP 6 Normal 5-15 [facility] Comment on above: Performed By: #### L 505.7010, L4600.0100, L100.0100, L3890.6100, L801.1541, L801.1543, L3100.7950, L3890.6300, L3890.6200, L501.6710, L500.4050, L101.9900 #### [facility] [address] [place], [place], [id number] GFR/1.73 sq M.predicted among non-blacks MDRD (S/P/Bld) [Vol rate/Area] 69 mL/min/{1.73_m2} Normal >60 [facility] Comment on above: Result Comment: Non- GFR Calc Performed By: #### L 505.7010, L4600.0100, L100.0100, L3890.6100, L801.1541, L801.1543, L3100.7950, L3890.6300, L3890.6200, L501.6710, L500.4050, L101.9900 #### [facility] [address] [place], [address] Globulin (S) [Mass/Vol] 3.1 g/dL Normal 2.2-4.2 [facility] Comment on above: Performed By: #### L 505.7010, L4600.0100, L100.0100, L3890.6100, L801.1541, L801.1543, L3100.7950, L3890.6300, L3890.6200, L501.6710, L500.4050, L101.9900 #### [facility] [address] [place], [address] Glucose [Mass/Vol] 91 mg/dL Normal 74-106 [facility] Comment on above: Performed By: #### L 505.7010, L4600.0100, L100.0100, L3890.6100, L801.1541, L801.1543, L3100.7950, L3890.6300, L3890.6200, L501.6710, L500.4050, L101.9900 #### [facility] [address] [place], [address] Potassium [Moles/Vol] 3.8 mmol/L Normal 3.5-5.1 [facility] Comment on above: Performed By: #### L 505.7010, L4600.0100, L100.0100, L3890.6100, L801.1541, L801.1543, L3100.7950, L3890.6300, L3890.6200, L501.6710, L500.4050, L101.9900 #### [facility] [address] [place], [address] Sodium [Moles/Vol] 141 mmol/L Normal 136-145 [facility] Comment on above: Performed By: #### L 505.7010, L4600.0100, L100.0100, L3890.6100, L801.1541, L801.1543, L3100.7950, L3890.6300, L3890.6200, L501.6710, L500.4050, L101.9900 #### [facility] [address] [place], [address] T PROT 6.7 g/dL Normal 6.4-8.2 [facility] Comment on above: Performed By: #### L 505.7010, L4600.0100, L100.0100, L3890.6100, L801.1541, L801.1543, L3100.7950, L3890.6300, L3890.6200, L501.6710, L500.4050, L101.9900 #### [facility] [address] [place], [address] Urea nitrogen [Mass/Vol] 18 mg/dL Normal 7-18 [facility] Comment on above: Performed By: #### L 505.7010, L4600.0100, L100.0100, L3890.6100, L801.1541, L801.1543, L3100.7950, L3890.6300, L3890.6200, L501.6710, L500.4050, L101.9900 #### [facility] [address] [place], [address] Erythrocyte Sed Rateon 05-15 SED RATE 12 mm/hr Normal 0-30 [facility] Comment on above: Performed By: #### L 505.7010, L4600.0100, L100.0100, L3890.6100, L801.1541, L801.1543, L3100.7950, L3890.6300, L3890.6200, L501.6710, L500.4050, L101.9900 #### [facility] [address] [place], [place], [id number] Hepatitis B Surface Antibody on 05-15-2024 HEP B Surf Ab Non-Reactive Normal [facility] Comment on above: Result Comment: Non Reactive: Inconsistent with immunity less than <10 mIU/mL Reactive: Consistent with immunity greater than or equal to 10 mIU/mL Performed By: #### L 505.7010, L4600.0100, L100.0100, L3890.6100, L801.1541, L801.1543, L3100.7950, L3890.6300, L3890.6200, L501.6710, L500.4050, L101.9900 #### [facility] [address] [place], [address] Hepatitis B Surface Antigeno n 05-15-2024 HEP B Surf Ag Non-Reactive Normal Nonreactive [facility] Comment on above: Performed By: #### L 505.7010, L4600.0100, L100.0100, L3890.6100, L801.1541, L801.1543, L3100.7950, L3890.6300, L3890.6200, L501.6710, L500.4050, L101.9900 #### [facility] [address] [place], [place], [id number] Hepatitis C Antibodyon 05-15 Hepatitis C AB Non-Reactive Normal Nonreactive [facility] Comment on above: Result Comment: Non Reactive: < 0.8 Equivocal: >/= 0.8 to < 1.0 Reactive: >/= 1.0 The CDC requires that a reactive/equivocal HCV antibody result be sent out for confirmation. HCV Quant by PCR testing. Performed By: #### L 505.7010, L4600.0100, L100.0100, L3890.6100, L801.1541, L801.1543, L3100.7950, L3890.6300, L3890.6200, L501.6710, L500.4050, L101.9900 #### [facility] [address] [place], [place], [address] Rheumatoid Factoron 05-15-20 RHEUMATOID FAC < 10.0 Normal <15 [facility] Comment on above: Performed By: #### L 505.7010, L4600.0100, L100.0100, L3890.6100, L801.1541, L801.1543, L3100.7950, L3890.6300, L3890.6200, L501.6710, L500.4050, L101.9900 #### [facility] [address] [place], [address] SCRN MAMM (CAD)W/MARCIANO BILATo n 04-09-2024 SCRN MAMM (CAD)W/MARCIANO BILAT [facility] Imaging Services [address] [place], [place] [address] SCRN MAMM (CAD)W/MARCIANO BILAT MR#: [id number] Acct: [id number] Name: MONSE BLEVINS Rep #: [id number] : 1955 F 69 From: Antoine esteban MD PCP: Dr. Meghna Gregory, DO Status: [facility] Study: SCRN MAMM (CAD)W/MARCIANO BILAT Date of Exam: 06/25 Exam# [id number] Ordering Dr: Bety Torres HOSPICE CLINICAL MARKETER HOSPICE CLINICAL MARKETER -C [id number] MAMMOGRAPHY - BILATERAL SCREENING REASON FOR EXAM: Female, 69 years old. Routine annual screening examination. PERTINENT HISTORY: Non-contributory. TECHNIQUE: Digital bilateral breast marciano (3D mammographic acquisition) in the CC and MLO projections. 2-D mediolateral oblique (MLO) and craniocaudad (CC) views of both breasts were obtained. CAD: Full Field Digital Mammography with Computer Added Detection was performed. COMPARISON: Comparison is made with prior study dated April 06, 2023 and March 31, 2022. FINDINGS: Breast Composition: The breasts are heterogeneously dense, which may obscure small masses. There are no dominant masses or suspicious calcifications. Stable small benign-appearing bilateral axillary lymph nodes. No other significant abnormalities are identified. There has been no significant change since the prior study. BI/SCRN MAMM (CAD)W/MARCIANO BILAT IMPRESSION: Stable bilateral screening mammogram. Yearly follow-up mammogram recommended. (A) ASSESSMENT CATEGORY: BIRADS Category 2: Benign. A letter regarding these results will be sent to the patient by the facility within 30 days. Approximately 10% of breast cancers are not detected by mammography. A normal mammogram should not delay biopsy of a clinically suspicious abnormality. [id number] Electronically Signed: Antoine Holbrook MD at 8:45 EDT , CC: FLORENCIA Torres; Dr. Meghna Gregory DO Equipment Technician: Signed Normal [facility] CALCIFEDIOL ([id number])Ordered B y: [employer] Data Entry on 04-28-2023 25-hydroxyvitamin D [Mass/Vol] 80.4 ng/mL Normal 30.0-100.0 [facility]; [facility] Work Phone: CBC with auto diff ([id number])Or dered By: [employer]el[employer] Data Entry on 04-28-2023 Basophils (Bld) [#/Vol] 0.0 10*3/uL Normal 0.0-0.2 [facility]; [facility] Work Phone: Basophils/100 WBC (Bld) 1 % Normal [facility]; [facility] Work Phone: Eosinophils (Bld) [#/Vol] 0.1 10*3/uL Normal 0.0-0.4 [facility]; [facility] Work Phone: Eosinophils/100 WBC (Bld) 2 % Normal [facility]; [facility] Work Phone: Erythrocyte distribution width (RBC) [Ratio] 12.2 % Normal 11.7-15.4 [facility]; [facility] Work Phone: Hematocrit (Bld) [Volume fraction] 40.0 % Normal 34.0-46.6 [facility]; [facility] Work Phone: Hemoglobin (Bld) [Mass/Vol] 13.3 g/dL Normal 11.1-15.9 [facility]; [facility] Work Phone: Immature granulocytes (Bld) [#/Vol] 0.0 10*3/uL Normal 0.0-0.1 [facility]; [facility] Work Phone: Immature granulocytes/100 WBC (Bld) 0 % Normal [facility]; [facility] Work Phone: Lymphocytes (Bld) [#/Vol] 1.9 10*3/uL Normal 0.7-3.1 [facility]; [facility] Work Phone: Lymphocytes/100 WBC (Bld) 37 % Normal [facility]; [facility] Work Phone: MCH (RBC) [Entitic mass] 30.4 pg Normal 26.6-33.0 [facility]; [facility] Work Phone: MCHC (RBC) [Mass/Vol] 33.3 g/dL Normal 31.5-35.7 [facility]; [facility] Work Phone: MCV (RBC) [Entitic vol] 92 fL Normal 79-97 [facility]; [facility] Work Phone: Monocytes (Bld) [#/Vol] 0.4 10*3/uL Normal 0.1-0.9 [facility]; [facility] Work Phone: Monocytes/100 WBC (Bld) 9 % Normal [facility]; [facility] Work Phone: Morphology Nikita (Bld) [Interp] Note: Normal [facility]; [facility] Work Phone: Neutrophils (Bld) [#/Vol] 2.6 10*3/uL Normal 1.4-7.0 [facility]; [facility] Work Phone: Neutrophils/100 WBC (Bld) 51 % Normal [facility]; [facility] Work Phone: RBC (Bld) [#/Vol] 4.37 10*6/uL Normal 3.77-5.28 [facility]; [facility] Work Phone: WBC (Bld) [#/Vol] 5.2 10*3/uL Normal 3.4-10.8 [facility]; [facility] Work Phone: HGB A1C ([id number])Ordered By: S ystem Account Executive Sales Representative on 04-28-2023 HbA1c (Bld) [Mass fraction] 5.7 % Abnormal 4.8-5.6 [facility]; [facility] Work Phone: METABOLIC PANEL, COMPREHENSI VE ([phone])Ordered By: [employer]elance Data Entry on 04-28-2023 Albumin [Mass/Vol] 4.3 g/dL Normal 3.9-4.9 [facility]; [facility] Work Phone: Albumin/Globulin [Mass ratio] 2.4 {ratio} Abnormal 1.2-2.2 [facility]; [facility] Work Phone: ALP [Catalytic activity/Vol] 66 U/L Normal 44-121 [facility]; [facility] Work Phone: ALT [Catalytic activity/Vol] 18 U/L Normal 0-32 [facility]; [facility] Work Phone: AST [Catalytic activity/Vol] 33 U/L Normal 0-40 [facility]; [facility] Work Phone: Bilirubin [Mass/Vol] 0.3 mg/dL [facility] 0.0-1.2 [facility]; [facility] Work Phone: Calcium [Mass/Vol] 9.2 mg/dL Normal 8.7-10.3 [facility]; [facility] Work Phone: Chloride [Moles/Vol] 105 mmol/L Normal 96-106 [facility]; [facility] Work Phone: CO2 [Moles/Vol] 19 mmol/L Abnormal 20-29 [facility]; [facility] Work Phone: Creatinine [Mass/Vol] 0.81 mg/dL Normal 0.57-1.[address] [facility]; [facility] Work Phone: Globulin (S) [Mass/Vol] 1.8 g/dL Normal 1.5-4.5 [facility]; [facility] Work Phone: Glucose [Mass/Vol] 85 mg/dL Normal 70-99 [facility]; [facility] Work Phone: Potassium [Moles/Vol] 4.9 mmol/L Normal 3.5-5.[address] [facility]; [facility] Work Phone: Protein [Mass/Vol] 6.1 g/dL Normal 6.0-8.5 [facility]; [facility] Work Phone: Sodium [Moles/Vol] 140 mmol/L Normal 134-144 [facility]; [facility] Work Phone: Urea nitrogen [Mass/Vol] 15 mg/dL Normal 8-27 [facility]; [facility] Work Phone: Urea nitrogen/Creatinine [Mass ratio] 19 mg/mg Normal 12-28 [facility]; [facility] Work Phone: METABOLIC PANEL, COMPREHENSIVE ([phone]) 79 mL/min/1.73 Normal [facility]; [facility] Work Phone: Laboratory - Chemistry and C hemistry - challengeOrdered By: Dr. Evans on 03-15-2023 T4 [Mass/Vol] 6.9 ug/dL 4.8-13.9 [facility] No Panel InformationOrdered By: Dr. Evans on 03-15-2023 Free Triiodothyronine (T3) pg/dL 2.6 pg/mL 2.18-3.98 [facility] Thyroid Stimulating Hormone (TSH) 1.75 uIU/mL 0.358-3.74 [facility] Absolute lymphocyte countOrd ered By: LALO GUY on 01-09-2023 Lymphocytes Auto (Unsp spec) [#/Vol] 1.61 10*3/uL 0.83-4.51 [facility] Basophil percentageOrdered B y: LALO GUY on 01-09-2023 Basophils/100 WBC (Bld) 0.9 % 0-1 [facility] Bilirubin [Mass/Vol] 0.30 mg/dL 0.20-1.00 [facility] Comment on above: For patients on eltr ombopag therapy, use of Dimension [place] TBIL is not recommended. Chloride [Moles/Vol] 108 mmol/L 98-107 [facility] Eosinophils/100 WBC (Bld) 3.5 % 0-5 [facility] Glucose [Mass/Vol] 89 mg/dL 74-106 [facility] Neutrophils (Bld) [#/Vol] 5.9 10*3/uL 2.0-7.7 [facility] Neutrophils/100 WBC (Bld) 66.7 % 47-70 [facility] Potassium [Moles/Vol] 4.3 mmol/L 3.5-5.1 [facility] Protein [Mass/Vol] 6.4 g/dL 6.4-8.2 [facility] Sodium [Moles/Vol] 137 mmol/L 136-145 [facility] WBC (Bld) [#/Vol] 8.8 10*3/uL 4.4-11.0 [facility] Blood erythrocytes count (nu mber/volume)Ordered By: LALO GUY on 01-09-2023 RBC (Bld) [#/Vol] 4.38 10*6/uL 4.2-5.4 [facility] Blood hemoglobin measurement (mass/volume)Ordered By: LALO GUY on 01-09-2023 Hemoglobin (Bld) [Mass/Vol] 13.2 g/dL 12.0-15.0 [facility] Blood lymphocytes/100 leukoc ytesOrdered By: LALO GUY on 01-09-2023 Lymphocytes/100 WBC (Bld) 18.3 % 19-41 [facility] Blood monocytes/100 leukocyt esOrdered By: LALO GUY on 01-09-2023 Monocytes/100 WBC (Bld) 10.1 % 0-10 [facility] Blood platelet mean volumeOr dered By: LALO GUY on 01-09-2023 Platelet mean volume (Bld) [Entitic vol] 8.9 fL 6.2-12.0 [facility] Determination of erythrocyte mean corpuscular volume (MCV)Ordered By: LALO GUY on 01-09-2023 MCV (RBC) [Entitic vol] 96.1 fL 81-99 [facility] Hematocrit Auto (Bld) [Volum e fraction]Ordered By: LALO GUY on 01-09-2023 Hematocrit (Bld) [Volume fraction] 42.1 % 37-47 [facility] - Chemistry and C hemistry - challengeOrdered By: LALO GUY on 01-09-2023 ALP [Catalytic activity/Vol] 63 U/L 45-117 [facility] ALT [Catalytic activity/Vol] 25 U/L 13-56 [facility] CO2 [Moles/Vol] 28.0 mmol/L 21.0-32.0 [facility] Globulin (S) [Mass/Vol] 2.8 g/dL 2.2-4.2 [facility] Urea nitrogen/Creatinine [Mass ratio] 22.4 mg/mg 10-20 [facility] - Hematology and Cell countsOrdered By: LALO GUY on 01-09-2023 Erythrocyte distribution width (RBC) [Entitic vol] 44.5 fL 35.1-43.9 [facility] Erythrocyte distribution width (RBC) [Ratio] 12.6 % 11.6-14.6 [facility] Immature granulocytes/100 WBC (Bld) 0.500 % 0.0-0.9 [facility] Comment on above: IG% - Immature Granu locytes (promyelocytes, myelocytes and metamyelocytes) > 1% indicates that a LEFT SHIFT is Present. MCH (RBC) [Entitic mass] 30.1 pg 27.0-32.0 [facility] Nucleated RBC/100 WBC (Bld) [Ratio] 0 % 0-5 [facility] MCHC Auto (RBC) [Mass/Vol]Or dered By: LALO GUY on 01-09-2023 MCHC (RBC) [Mass/Vol] 31.4 g/dL 32-36 [facility] No Panel InformationOrdered By: LALO GUY on 01-09-2023 Estimated GFR (MDRD) Amer 91 mL/min >60 [facility] Comment on above: GFR Calc Estimated GFR (MDRD) Non-Af Amer 75 mL/min >60 [facility] Comment on above: Non- GFR Calc Platelets bldOrdered By: HUMBERTO GUY on 01-09-2023 Platelets (Bld) [#/Vol] 422 10*3/uL 150-450 [facility] Serum or plasma albumin linwood urement (mass/volume)Ordered By: LALO GUY on 01-09-2023 Albumin [Mass/Vol] 3.6 g/dL 3.2-5.0 [facility] Serum or plasma albumin/glob ulin mass ratioOrdered By: LALO GUY on 01-09-2023 Albumin/Globulin [Mass ratio] 1.3 {ratio} 0.9-2.4 [facility] Serum or plasma calcium linwood urement (mass/volume)Ordered By: LALO GUY on 01-09-2023 Calcium [Mass/Vol] 8.6 mg/dL 8.5-10.1 [facility] Serum or plasma creatinine m easurement (mass/volume)Ordered By: LALO GUY on 01-09-2023 Creatinine [Mass/Vol] 0.80 mg/dL 0.55-1.02 [facility] Comment on above: The validity of the calculated GFR & GFRAA in patients over 70 years has not been determined. Clinical correlation is essential. Serum or plasma urea nitroge n measurement (mass/volume)Ordered By: LALO GUY on 01-09-2023 Urea nitrogen [Mass/Vol] 18 mg/dL 7-18 [facility] Thin prep Papanicolaou smear with manual screeningOrdered By: LALO GUY on 01-09-2023 Thin prep Papanicolaou smear with manual screening 29 U/L 15-37 [facility] Thin prep Papanicolaou smear with manual screening 1 5-15 [facility] Absolute lymphocyte counton 07-15-2022 Lymphocytes Auto (Unsp spec) [#/Vol] 1.88 10*3/uL 0.83-4.51 [facility] Work Phone: Basophil percentageon 2021 Basophils/100 WBC (Bld) 1.0 % 0-1 [facility] Work Phone: Bilirubin [Mass/Vol] 0.50 mg/dL 0.20-1.00 [facility] Work Phone: Comment on above: For patients on eltr ombopag therapy, use of Dimension [place] TBIL is not recommended. Chloride [Moles/Vol] 109 mmol/L 98-107 [facility] Work Phone: Eosinophils/100 WBC (Bld) 3.0 % 0-5 [facility] Work Phone: Glucose [Mass/Vol] 85 mg/dL 74-106 [facility] Work Phone: Neutrophils (Bld) [#/Vol] 4.2 10*3/uL 2.0-7.7 [facility] Work Phone: Neutrophils/100 WBC (Bld) 59.6 % 47-70 [facility] Work Phone: Potassium [Moles/Vol] 3.7 mmol/L 3.5-5.1 [facility] Work Phone: Protein [Mass/Vol] 6.7 g/dL 6.4-8.2 [facility] Work Phone: Sodium [Moles/Vol] 141 mmol/L 136-145 [facility] Work Phone: WBC (Bld) [#/Vol] 7.1 10*3/uL 4.4-11.0 [facility] Work Phone: Blood erythrocytes count (nu mber/volume)on 07-15-2022 RBC (Bld) [#/Vol] 4.62 10*6/uL 4.2-5.4 [facility] Work Phone: Blood hemoglobin measurement (mass/volume)on 07-15-2022 Hemoglobin (Bld) [Mass/Vol] 13.9 g/dL 12.0-15.0 [facility] Work Phone: Blood lymphocytes/100 leukoc yteson 07-15-2022 Lymphocytes/100 WBC (Bld) 26.4 % 19-41 [facility] Work Phone: Blood monocytes/100 leukocyt eson 07-15-2022 Monocytes/100 WBC (Bld) 9.7 % 0-10 [facility] Work Phone: Blood platelet mean volumeon 07-15-2022 Platelet mean volume (Bld) [Entitic vol] 8.5 fL 6.2-12.0 [facility] Work Phone: Determination of erythrocyte mean corpuscular volume (MCV)on 07-15-2022 MCV (RBC) [Entitic vol] 94.2 fL 81-99 [facility] Work Phone: Hematocrit Auto (Bld) [Volum e fraction]on 07-15-2022 Hematocrit (Bld) [Volume fraction] 43.5 % 37-47 [facility] Work Phone: Laboratory - Chemistry and C hemistry - challengeon 07-15-2022 ALP [Catalytic activity/Vol] 70 U/L 45-117 [facility] Work Phone: ALT [Catalytic activity/Vol] 25 U/L 13-56 [facility] Work Phone: CO2 [Moles/Vol] 27.0 mmol/L 21.0-32.0 [facility] Work Phone: Globulin (S) [Mass/Vol] 3.2 g/dL 2.2-4.2 [facility] Work Phone: Urea nitrogen/Creatinine [Mass ratio] 23.0 mg/mg 10-20 [facility] Work Phone: Laboratory - Hematology and Cell countson 07-15-2022 Erythrocyte distribution width (RBC) [Entitic vol] 43.9 fL 35.1-43.9 [facility] Work Phone: Erythrocyte distribution width (RBC) [Ratio] 12.7 % 11.6-14.6 [facility] Work Phone: Immature granulocytes/100 WBC (Bld) 0.300 % 0.0-0.9 [facility] Work Phone: Comment on above: IG% - Immature Granu locytes (promyelocytes, myelocytes and metamyelocytes) > 1% indicates that a LEFT SHIFT is Present. MCH (RBC) [Entitic mass] 30.1 pg 27.0-32.0 [facility] Work Phone: Nucleated RBC/100 WBC (Bld) [Ratio] 0 % 0-5 [facility] Work Phone: MCHC Auto (RBC) [Mass/Vol]on 07-15-2022 MCHC (RBC) [Mass/Vol] 32.0 g/dL 32-36 [facility] Work Phone: No Panel Informationon 07-15 Estimated Creatinine Clearance Calc 44.03 ml/min [facility] Work Phone: Estimated GFR (MDRD) Amer 84 mL/min >60 [facility] Work Phone: Comment on above: GFR Calc Estimated GFR (MDRD) Non-Af Amer 69 mL/min >60 [facility] Work Phone: Comment on above: Non- GFR Calc Platelets bldon 07-15-2022 Platelets (Bld) [#/Vol] 419 10*3/uL 150-450 [facility] Work Phone: Serum or plasma IgA measurem ent (mass/volume)on 07-15-2022 IgA [Mass/Vol] 123 mg/dL 87-352 [facility] Work Phone: Serum or plasma IgG measurem ent (mass/volume)on 07-15-2022 IgG [Mass/Vol] 581 mg/dL [phone] [facility] Work Phone: Serum or plasma IgM measurem ent (mass/volume)on 07-15-2022 IgM [Mass/Vol] 30 mg/dL 26-217 [facility] Work Phone: Comment on above: Performed at: [address] [id number] Director: Cruz Irizarry PhD, Phone: [phone] Serum or plasma albumin linwood urement (mass/volume)on 07-15-2022 Albumin [Mass/Vol] 3.5 g/dL 3.2-5.0 [facility] Work Phone: Serum or plasma albumin/glob ulin mass ratioon 07-15-2022 Albumin/Globulin [Mass ratio] 1.1 {ratio} 0.9-2.4 [facility] Work Phone: Serum or plasma calcium linwood urement (mass/volume)on 07-15-2022 Calcium [Mass/Vol] 8.9 mg/dL 8.5-10.1 [facility] Work Phone: Serum or plasma creatinine m easurement (mass/volume)on 07-15-2022 Creatinine [Mass/Vol] 0.87 mg/dL 0.55-1.02 [facility] Work Phone: Comment on above: The validity of the calculated GFR & GFRAA in patients over 70 years has not been determined. Clinical correlation is essential. Serum or plasma urea nitroge n measurement (mass/volume)on 07-15-2022 Urea nitrogen [Mass/Vol] 20 mg/dL 7-18 [facility] Work Phone: Thin prep Papanicolaou smear with manual screeningon 07-15-2022 Thin prep Papanicolaou smear with manual screening 23 U/L 15-37 [facility] Work Phone: Thin prep Papanicolaou smear with manual screening 5 5-15 [facility] Work Phone: CALCIFEDIOL ([id number])Ordered B y: [employer] Entry on 02-25-2022 25-hydroxyvitamin D [Mass/Vol] 65.9 ng/mL Normal 30.0-100.0 [facility]; [facility] Work Phone: HGB A1C ([id number])Ordered By: Cj ystem Account Executive Sales Representative on 02-25-2022 HbA1c (Bld) [Mass fraction] 5.4 % Normal 4.8-5.6 [facility]; [facility] Work Phone: LIPID PANEL ([id number])Ordered B y: [employer] on 02-25-2022 Cholesterol [Mass/Vol] 192 mg/dL Normal 100-199 [facility]; [facility] Work Phone: Cholesterol in HDL [Mass/Vol] 64 mg/dL Normal [facility]; [facility] Work Phone: Triglyceride [Mass/Vol] 107 mg/dL Normal 0-149 [facility]; [facility] Work Phone: LIPID PANEL ([id number]) 19 mg/dL Normal 5-[address] [facility]; [facility] Work Phone: LIPID PANEL ([id number]) 109 mg/dL Abnormal 0-[address] [facility]; [facility] Work Phone: LIPID PANEL ([id number]) 1.7 {ratio} Normal 0.0-3.2 [facility]; [facility] Work Phone: T3, FREE (TRIDOTHYRONINE) ([phone])Ordered By: Freelance Data Entry on 02-25-2022 Free T3 [Mass/Vol] 2.9 pg/mL Normal 2.0-4.4 [facility]; [facility] Work Phone: T4, FREE (THYROXINE) ([id number]) Ordered By: [employer] Data Entry on 02-25-2022 Free T4 [Mass/Vol] 0.92 ng/dL Normal 0.82-1.77 [facility]; [facility] Work Phone: TSH ([phone])Ordered By: Krystal m Account Executive Sales Representative on 02-25-2022 TSH Qn 1.700 {uIU/mL} Normal 0.450-4.500 [facility]; [facility] Work Phone: Absolute lymphocyte counton 11-29-2021 Lymphocytes Auto (Unsp spec) [#/Vol] 1.96 10*3/uL 0.83-4.51 [facility] Work Phone: Basophil percentageon 2021 Basophils/100 WBC (Bld) 0.6 % 0-1 [facility] Work Phone: Bilirubin [Mass/Vol] 0.50 mg/dL 0.20-1.00 [facility] Work Phone: Comment on above: For patients on eltr ombopag therapy, use of Dimension [place] TBIL is not recommended. Chloride [Moles/Vol] 107 mmol/L 98-107 [facility] Work Phone: Eosinophils/100 WBC (Bld) 2.7 % 0-5 [facility] Work Phone: Glucose [Mass/Vol] 136 mg/dL 74-106 [facility] Work Phone: Comment on above: Fasting Glucose resu lt greater than or equal to 126 mg/dL suggests DIABETES MELLITUS per A.D.A. criteria. Neutrophils (Bld) [#/Vol] 5.1 10*3/uL 2.0-7.7 [facility] Work Phone: Neutrophils/100 WBC (Bld) 63.7 % 47-70 [facility] Work Phone: Potassium [Moles/Vol] 4.2 mmol/L 3.5-5.1 [facility] Work Phone: Protein [Mass/Vol] 6.9 g/dL 6.4-8.2 [facility] Work Phone: Sodium [Moles/Vol] 139 mmol/L 136-145 [facility] Work Phone: WBC (Bld) [#/Vol] 7.9 10*3/uL 4.4-11.0 [facility] Work Phone: Blood erythrocytes count (nu mber/volume)on 11-29-2021 RBC (Bld) [#/Vol] 4.22 10*6/uL 4.2-5.4 [facility] Work Phone: Blood hemoglobin measurement (mass/volume)on 11-29-2021 Hemoglobin (Bld) [Mass/Vol] 12.8 g/dL 12.0-15.0 [facility] Work Phone: Blood lymphocytes/100 leukoc yteson 11-29-2021 Lymphocytes/100 WBC (Bld) 24.7 % 19-41 [facility] Work Phone: Blood monocytes/100 leukocyt eson 11-29-2021 Monocytes/100 WBC (Bld) 8.0 % 0-10 [facility] Work Phone: Blood platelet mean volumeon 11-29-2021 Platelet mean volume (Bld) [Entitic vol] 8.7 fL 6.2-12.0 [facility] Work Phone: Determination of erythrocyte mean corpuscular volume (MCV)on 11-29-2021 MCV (RBC) [Entitic vol] 96.4 fL 81-99 [facility] Work Phone: Hematocrit Auto (Bld) [Volum e fraction]on 11-29-2021 Hematocrit (Bld) [Volume fraction] 40.7 % 37-47 [facility] Work Phone: Laboratory - Chemistry and C hemistry - challengeon 11-29-2021 ALP [Catalytic activity/Vol] 72 U/L 45-117 [facility] Work Phone: ALT [Catalytic activity/Vol] 28 U/L 13-56 [facility] Work Phone: CO2 [Moles/Vol] 28.0 mmol/L 21.0-32.0 [facility] Work Phone: Globulin (S) [Mass/Vol] 3.3 g/dL 2.2-4.2 [facility] Work Phone: Urea nitrogen/Creatinine [Mass ratio] 12.5 mg/mg 10-20 [facility] Work Phone: Laboratory - Hematology and Cell countson 11-29-2021 Erythrocyte distribution width (RBC) [Entitic vol] 46.5 fL 35.1-43.9 [facility] Work Phone: Erythrocyte distribution width (RBC) [Ratio] 13.2 % 11.6-14.6 [facility] Work Phone: Immature granulocytes/100 WBC (Bld) 0.300 % 0.0-0.9 [facility] Work Phone: Comment on above: IG% - Immature Granu locytes (promyelocytes, myelocytes and metamyelocytes) > 1% indicates that a LEFT SHIFT is Present. MCH (RBC) [Entitic mass] 30.3 pg 27.0-32.0 [facility] Work Phone: Nucleated RBC/100 WBC (Bld) [Ratio] 0 % 0-5 [facility] Work Phone: MCHC Auto (RBC) [Mass/Vol]on 11-29-2021 MCHC (RBC) [Mass/Vol] 31.4 g/dL 32-36 [facility] Work Phone: No Panel Informationon 11-29 Estimated GFR (MDRD) Amer 75 mL/min >60 [facility] Work Phone: Comment on above: GFR Calc Estimated GFR (MDRD) Non-Af Amer 62 mL/min >60 [facility] Work Phone: Comment on above: Non- GFR Calc Platelets bldon 11-29-2021 Platelets (Bld) [#/Vol] 438 10*3/uL 150-450 [facility] Work Phone: Serum or plasma albumin linwood urement (mass/volume)on 11-29-2021 Albumin [Mass/Vol] 3.6 g/dL 3.2-5.0 [facility] Work Phone: Serum or plasma albumin/glob ulin mass ratioon 11-29-2021 Albumin/Globulin [Mass ratio] 1.1 {ratio} 0.9-2.4 [facility] Work Phone: Serum or plasma calcium linwood urement (mass/volume)on 11-29-2021 Calcium [Mass/Vol] 9.4 mg/dL 8.5-10.1 [facility] Work Phone: Serum or plasma creatinine m easurement (mass/volume)on 11-29-2021 Creatinine [Mass/Vol] 0.96 mg/dL 0.55-1.02 [facility] Work Phone: Comment on above: The validity of the calculated GFR & GFRAA in patients over 70 years has not been determined. Clinical correlation is essential. Serum or plasma urea nitroge n measurement (mass/volume)on 11-29-2021 Urea nitrogen [Mass/Vol] 12 mg/dL 7-18 [facility] Work Phone: Thin prep Papanicolaou smear with manual screeningon 11-29-2021 Thin prep Papanicolaou smear with manual screening 25 U/L 15-37 [facility] Work Phone: Thin prep Papanicolaou smear with manual screening 4 5-15 [facility] Work Phone: Laboratory - Microbiology an d Antimicrobial susceptibilityon 10-26-2021 SARS-CoV-2 (COVID-19) RNA GLENDY+probe Ql (Unsp spec) Detected Not Detect [facility] Work Phone: Comment on above: Normal Reference Ran ge: Not DetectedMethod:(RT-PCR) real-time reverse transcriptase PCRLuAdvanced TeleSensors Instrument*The Food and Drug Administration (FDA) has issued an Emergency Use Authorization (EAU) for the [employer]moo SARS-CoV-2 Assay for the rapid detection of the virus that causes COVID-19. This test has been validated, but the FDAs independent review of this validation is pending.*Negative results do not preclude infection and should not be used as the sole basis for treatment or patient management. Optimum specimen types and timing for peak viral levels during infections caused by SARS-CoV-2 have not been determined. Collection of multiple specimens from the same patient may be necessary to detect the virus. The possibility of a false negative result should be considered if the patient has clinical presentation or has had recent exposure. URINE HOLLIS CULTURE (PIOTR COL COUNT) ([id number])Ordered By: Freelance Data Entry on 12-03-2020 Bacteria identified Cx Nom (U) Final report Normal [facility]; [facility] Work Phone: Bacteria identified Cx Nom (U) MUG Normal [facility]; [facility] Work Phone: Urinalysis, Office ([id number])Or dered By: Lamar Schmidt on 12-03-2020 Bilirubin Ql (U) Negative Normal [facility]; [facility] Work Phone: Bilirubin Ql (U) Negative Normal [facility]; [facility] Work Phone: Glucose Test strip (U) [Mass/Vol] Negative Normal [facility]; [facility] Work Phone: Glucose Test strip (U) [Mass/Vol] Negative Normal [facility]; [facility] Work Phone: Hemoglobin Ql (U) Negative Normal [facility]pre[facility] ens[facility]; [facility] Work Phone: Hemoglobin Ql (U) Negative Normal [facility]pre[facility]; [facility] Work Phone: Ketones Ql (U) Negative Normal Comprehens her[facility]ia [facility]; [facility] Work Phone: Ketones Ql (U) Negative Normal [facility]; [facility] Work Phone: Leukocyte esterase Test strip Ql (U) Negative Normal [facility]; [facility] Work Phone: Leukocyte esterase Test strip Ql (U) Negative Normal [facility]; [facility] Work Phone: Nitrite Ql (U) Negative Normal [facility]; [facility] Work Phone: Nitrite Ql (U) Negative Normal [facility]; [facility] Work Phone: pH (U) 6.0 [pH] Normal [facility]; [facility] Work Phone: Protein Ql (U) + Abnormal Comprehens [facility]; [facility] Work Phone: Comment on above: 15 +- Specific gravity (U) [Rel density] 1.030 1 Abnormal [facility]; [facility] Work Phone: Urobilinogen (24H U) [Mass/Time] Normal Normal [facility]; [facility] Work Phone: CALCIFIDIOL ([id number]) VIT D 25 Ordered By: Freelance Data Entry on 11-18-2020 25-Hydroxyvitamin D2+25-Hydroxyvitamin D3 [Mass/Vol] 87.0 ng/mL Normal 30.0-100.0 [facility]; [facility] Work Phone: Comment on above: Vitamin D deficiency has been defined by the [place] ofMedicine and an Endocrine Society practice guideline as alevel of serum 25-OH vitamin D less than 20 ng/mL (1,2).The Endocrine Society went on to further define vitamin Dinsufficiency as a level between 21 and 29 ng/mL (2).1. IOM ([place] of Medicine). 2010. Dietary reference intakes for calcium and D. [place]: The National Academies Press.2. Matilda MF, Cheryl NC, Yasir-Michel JIMÉNEZ, et al. Evaluation, treatment, and prevention of vitamin D deficiency: an Endocrine Society clinical practice guideline. JCEM. 2010; 96(7):1911-30. PATIENT WAS FASTINGP ERFORMED BY: [facility]CoChrist HospitalRgwuwz5315 [facility] [id number] CBC with auto diff ([id number])Or dered By: Freelance Data Entry on 02-17-2021 Basophils (Bld) [#/Vol] 0.1 {x10E3/uL} Normal 0.0-0.2 [facility]; [facility] Work Phone: Comment on above: PATIENT WAS FASTINGP ERFORMED BY: KIRSTEN CecyKiara [id number] [facility] [id number] Basophils (Bld) [#/Vol] 0.1 10*3/uL Normal 0.0-0.2 [facility]; [facility] Work Phone: Basophils/100 WBC (Bld) 1 % Normal [facility]; [facility] Work Phone: Comment on above: PATIENT WAS FASTINGP ERFORMED BY: KIRSTEN Munroelin6370 [facility] [id number] Eosinophils (Bld) [#/Vol] 0.2 {x10E3/uL} Normal 0.0-0.4 [facility]; [facility] Work Phone: Comment on above: PATIENT WAS FASTINGP ERFORMED BY: KIRSTEN Mcnulty Sucsof0412 [facility] [id number] Eosinophils (Bld) [#/Vol] 0.2 10*3/uL Normal 0.0-0.4 [facility]; [facility] Work Phone: Eosinophils/100 WBC (Bld) 3 % Normal [facility]; [facility] Work Phone: Comment on above: PATIENT WAS FASTINGP ERFORMED BY: KIRSTEN Mcnulty Siblai1841 [facility] [id number] Erythrocyte distribution width (RBC) [Ratio] 12.7 % Normal 11.7-15.4 [facility]; [facility] Work Phone: Comment on above: PATIENT WAS FASTINGP ERFORMED BY: KIRSTEN Mcpherson HospitalPiotr Lbiiju6295 [facility] [id number] Hematocrit (Bld) [Volume fraction] 42.2 % Normal 34.0-46.6 [facility]; [facility] Work Phone: Comment on above: PATIENT WAS FASTINGP ERFORMED BY: KIRSTEN [facility]6370 [facility] [id number] Hemoglobin (Bld) [Mass/Vol] 13.8 g/dL Normal 11.1-15.9 [facility]; [facility] Work Phone: Comment on above: PATIENT WAS FASTINGP ERFORMED BY: Pricila Edmbji4335 [facility] [place] [id number] Immature granulocytes (Bld) [#/Vol] 0.0 {x10E3/uL} Normal 0.0-0.1 [facility]; [facility] Work Phone: Comment on above: PATIENT WAS FASTINGP ERFORMED BY: [facility] Gnxunf3139 [facility] [id number] Immature granulocytes (Bld) [#/Vol] 0.0 10*3/uL Normal 0.0-0.1 [facility]; [facility] Work Phone: Immature granulocytes/100 WBC (Bld) 0 % Normal [facility]; [facility] Work Phone: Comment on above: PATIENT WAS FASTINGP ERFORMED BY: [facility] Mejixh6949 [facility] [id number] Lymphocytes (Bld) [#/Vol] 1.5 {x10E3/uL} Normal 0.7-3.1 [facility]; [facility] Work Phone: Comment on above: PATIENT WAS FASTINGP ERFORMED BY: [facility]6370 [facility] [place] [id number] Lymphocytes (Bld) [#/Vol] 1.5 10*3/uL Normal 0.7-3.1 [facility]; [facility] Work Phone: Lymphocytes/100 WBC (Bld) 19 % Normal [facility]; [facility] Work Phone: Comment on above: PATIENT WAS FASTINGP ERFORMED BY: [facility] Xsqdbi7432 [facility] [place] [id number] MCH (RBC) [Entitic mass] 29.7 pg Normal 26.6-33.0 [facility]; [facility] Work Phone: Comment on above: PATIENT WAS FASTINGP ERFORMED BY: KIRSTEN Pérez6370 [facility] [place] [id number] MCHC (RBC) [Mass/Vol] 32.7 g/dL Normal 31.5-35.7 [facility] prehensive [facility]; [facility] Work Phone: Comment on above: PATIENT WAS FASTINGP ERFORMED BY: KIRSTEN Pérez6370 [facility] [id number] MCV (RBC) [Entitic vol] 91 fL Normal 79-97 [facility]; [facility] Work Phone: Comment on above: PATIENT WAS FASTINGP ERFORMED BY: KIRSTEN Pérez6370 [facility] [id number] Monocytes (Bld) [#/Vol] 0.7 {x10E3/uL} Normal 0.1-0.9 [facility]; [facility] Work Phone: Comment on above: PATIENT WAS FASTINGP ERFORMED BY: KIRSTEN Pérez6370 [facility] [place] [id number] Monocytes (Bld) [#/Vol] 0.7 10*3/uL Normal 0.1-0.9 [facility]; [facility] Work Phone: Monocytes/100 WBC (Bld) 9 % Normal [facility]; [facility] Work Phone: Comment on above: PATIENT WAS FASTINGP ERFORMED BY: KIRSTEN Munroelin6370 [facility] [id number] Neutrophils (Bld) [#/Vol] 5.3 {x10E3/uL} Normal 1.4-7.0 [facility]; [facility] Work Phone: Comment on above: PATIENT WAS FASTINGP ERFORMED BY: KIRSTEN [facility] Ivdzah0676 [facility] [place] [id number] Neutrophils (Bld) [#/Vol] 5.3 10*3/uL Normal 1.4-7.0 [facility]; [facility] Work Phone: Neutrophils/100 WBC (Bld) 68 % Normal [facility]; [facility] Work Phone: Comment on above: PATIENT WAS FASTINGP ERFORMED BY: KIRSTEN Aracelis Munroelin6370 [facility] [id number] Platelets (Bld) [#/Vol] 516 {x10E3/uL} Abnormal 150-450 [facility]; [facility] Work Phone: Comment on above: PATIENT WAS FASTINGP ERFORMED BY: KIRSTEN [facility]6370 [facility] [id number] Platelets (Bld) [#/Vol] 516 10*3/uL Abnormal 150-450 [facility]; [facility] Work Phone: RBC (Bld) [#/Vol] 4.65 {x10E6/uL} Normal 3.77-5.28 [facility] Internal Medicine; [facility] Work Phone: Comment on above: PATIENT WAS FASTINGP ERFORMED BY: KIRSTEN [facility]6370 [facility] [id number] RBC (Bld) [#/Vol] 4.65 10*6/uL Normal 3.77-5.[address] [facility] Internal Medicine; [facility] Work Phone: WBC (Bld) [#/Vol] 7.8 {x10E3/uL} Normal 3.4-10.[address] [facility] Internal Medicine; [facility] Work Phone: Comment on above: PATIENT WAS FASTINGP ERFORMED BY: [facility]6370 [facility] [id number] WBC (Bld) [#/Vol] 7.8 10*3/uL Normal 3.4-10.8 [facility]; [facility] Work Phone: LIPID PANEL (13956)Ordered B y: Freelance Data Entry on 11-18-2020 Cholesterol [Mass/Vol] 200 mg/dL Abnormal 100-199 [facility]; [facility] Work Phone: Comment on above: PATIENT WAS FASTINGP ERFORMED BY: KIRSTEN LabCosh[facility] Ugmxqy8786 Abel RoadDublin [place] [id number] Cholesterol in HDL [Mass/Vol] 76 mg/dL Normal [facility]; [facility] Work Phone: Comment on above: PATIENT WAS FASTINGP ERFORMED BY: KIRSTEN Lab[facility]osh[facility] Fwzhsd6292 [address] Roadblin [place] [id number] Cholesterol in LDL/Cholesterol in HDL [Mass ratio] 1.4 {ratio} Normal 0.0-3.2 [facility]; [facility] Work Phone: Comment on above: LDL/HDL Ratio Men Wo men 1/2 Avg.Risk 1.0 1.5 Avg.Risk 3.6 3.2 2X Avg.Risk 6.2 5.0 3X Avg.Risk 8.0 6.1 PATIENT WAS FASTINGP ERFORMED BY: KIRSTEN [facility] Omqezx7362 [address] [facility] HospitalDuin [place] [id number] Triglyceride [Mass/Vol] 86 mg/dL Normal 0-149 [facility]; [facility] Work Phone: Comment on above: PATIENT WAS FASTINGP ERFORMED BY: KIRSTEN [facility] Czjqhm0588 [address] [facility] HospitalDublin [place] [id number] LIPID PANEL (89906) 15 mg/dL Normal 5-40 Compr ehensive Internal Medicine; [facility] Work Phone: Comment on above: PATIENT WAS FASTINGP ERFORMED BY: CB [facility] Pkjqtv5029 Abel RoadDublin [place] [id number] LIPID PANEL (93755) 109 mg/dL Abnormal 0-99 Compr ehensive [facility]; [facility] Work Phone: Comment on above: PATIENT WAS FASTINGP ERFORMED BY: CB [facility] Fmwtwa7246 [address] [facility] HospitalDublin [place] [id number] LIPID PANEL (15734) 1.4 {ratio} Normal 0.0-3.[address] [facility]; [facility] Work Phone: METABOLIC PANEL, COMPREHENSI VE (23459)Ordered By: Freelance Data Entry on 11-18-2020 Albumin [Mass/Vol] 4.3 g/dL Normal 3.8-4.8 [facility]; [facility] Work Phone: Comment on above: PATIENT WAS FASTINGP ERFORMED BY: KIRSTEN Pérez6370 [address] RoadDublin [place] [id number] Albumin/Globulin [Mass ratio] 2.0 {ratio} Normal 1.2-2.2 [facility]; [facility] Work Phone: Comment on above: PATIENT WAS FASTINGP ERFORMED BY: KIRSTEN Pérez6370 [address] RoadDublin [place] [id number] ALP [Catalytic activity/Vol] 75 [iU]/L Normal 39-117 [facility]; [facility] Work Phone: Comment on above: PATIENT WAS FASTINGP ERFORMED BY: KIRSTEN Pérez6370 [address] RoadDublin [place] [id number] ALP [Catalytic activity/Vol] 75 U/L Normal 39-117 [facility]; [facility] Work Phone: ALT [Catalytic activity/Vol] 15 [iU]/L Normal 0-32 [facility]; [facility] Work Phone: Comment on above: PATIENT WAS FASTINGP ERFORMED BY: KIRSTEN Pérez6370 [address] RoadDublin [place] [id number] ALT [Catalytic activity/Vol] 15 U/L Normal 0-32 [facility]; [facility] Work Phone: AST [Catalytic activity/Vol] 25 [iU]/L Normal 0-40 [facility]; [facility] Work Phone: Comment on above: PATIENT WAS FASTINGP ERFORMED BY: KIRSTEN [facility] Tcgswd9936 Abel RoadDublin [place] [id number] AST [Catalytic activity/Vol] 25 U/L Normal 0-40 [facility]; [facility] Work Phone: Bilirubin [Mass/Vol] 0.4 mg/dL Normal 0.0-1.2 [facility] Internal Medicine; [facility] Work Phone: Comment on above: PATIENT WAS FASTINGP ERFORMED BY: CB [facility] Rtycyo8331 [address] RoadDublin [place] [id number] Calcium [Mass/Vol] 9.4 mg/dL Normal 8.7-10.3 [facility]; [facility] Work Phone: Comment on above: PATIENT WAS FASTINGP ERFORMED BY: CB [facility] Ssvtwu4086 Abel RoadDublin [place] [id number] Chloride [Moles/Vol] 105 mmol/L Normal 96-106 Comp rehensive Internal Medicine; [facility] Work Phone: Comment on above: PATIENT WAS FASTINGP ERFORMED BY: CB [facility] Natolo8926 Abel RoadDublin [place] [id number] CO2 [Moles/Vol] 25 mmol/L Normal 20-29 [facility] Internal Medicine; [facility] Work Phone: Comment on above: PATIENT WAS FASTINGP ERFORMED BY: CB [facility] Xlsibs2536 [address] RoadDublin [place] [id number] Creatinine [Mass/Vol] 0.87 mg/dL Normal 0.57-1.00 [facility]eren[facility]; [facility] Work Phone: Comment on above: PATIENT WAS FASTINGP ERFORMED BY: CB [facility] Fwzaat7847 [address] RoadDublin [place] [id number] GFR/1.73 sq M predicted among blacks CKD-EPI (S/P/Bld) [Vol rate/Area] 81 mL/min/1.73 Normal [facility]; [facility] Work Phone: Comment on above: PATIENT WAS FASTINGP ERFORMED BY: CB [facility] Ihuyod4694 [address] RoadDublin [place] [id number] GFR/1.73 sq M predicted among non-blacks CKD-EPI (S/P/Bld) [Vol rate/Area] 70 mL/min/1.73 Normal [facility]; [facility] Work Phone: Comment on above: PATIENT WAS FASTINGP ERFORMED BY: CB [facility] Vcmjwh7030 [address] RoadDublin [place] [id number] Globulin (S) [Mass/Vol] 2.1 g/dL Normal 1.5-4.5 [facility]; [facility] Work Phone: Comment on above: PATIENT WAS FASTINGP ERFORMED BY: KIRSTEN LabPiotr Faoifu7025 [facility] [id number] Glucose [Mass/Vol] 88 mg/dL Normal 65-99 [facility]; [facility] Work Phone: Comment on above: PATIENT WAS FASTINGP ERFORMED BY: KIRSTEN [facility] Depibj1946 [facility] [id number] Potassium [Moles/Vol] 4.5 mmol/L Normal 3.5-5.[address] [facility] Internal Medicine; [facility] Work Phone: Comment on above: PATIENT WAS FASTINGP ERFORMED BY: KIRSTEN LabMer[facility] Musyvj9044 [facility] [id number] Protein [Mass/Vol] 6.4 g/dL Normal 6.0-8.5 [facility]; [facility] Work Phone: Comment on above: PATIENT WAS FASTINGP ERFORMED BY: KIRSTEN [facility]6370 [facility] [id number] Sodium [Moles/Vol] 144 mmol/L Normal 134-144 [facility]; [facility] Work Phone: Comment on above: PATIENT WAS FASTINGP ERFORMED BY: KIRSTEN Lab[facility] Czzvyn9290 [facility] [id number] Urea nitrogen [Mass/Vol] 11 mg/dL Normal 8-27 [facility]; [facility] Work Phone: Comment on above: PATIENT WAS FASTINGP ERFORMED BY: KIRSTEN [facility] Oipirn0354 [facility] [id number] Urea nitrogen/Creatinine [Mass ratio] 13 mg/mg Normal 12-28 [facility]; [facility] Work Phone: Comment on above: PATIENT WAS FASTINGP ERFORMED BY: KIRSTEN [facility] Jrjfxx2592 [facility] [id number] URINE HOLLIS CULTURE-IDENTIFICA [place] (20311)Ordered By: Freelance Data Entry on 11-09-2020 Bacteria identified Cx Nom (U) Final report Abnormal [facility]; [facility] Work Phone: Comment on above: PATIENT NOT FASTINGP ERFORMED BY: [facility] Mijddd2002 [facility] [id number] Information: SRC: Bacteria identified Cx Nom (U) BETAGB Abnormal [facility]; [facility] Work Phone: Comment on above: Beta hemolytic Strep tococcus, group BGreater than 100,000 colony forming units per mLPenicillin and ampicillin are drugs of choice for treatment ofbeta-hemolytic streptococcal infections. Susceptibility testing ofpenicillins and other beta-lactam agents approved by the FDA fortreatment of beta-hemolytic streptococcal infections need not beperformed routinely because nonsusceptible isolates are extremelyrare in any beta-hemolytic streptococcus and have not been reportedfor Streptococcus pyogenes (group A). (CLSI) PATIENT NOT FASTINGP ERFORMED BY: KIRSTEN [facility] Xmnohj1865 [facility] [id number] Information: SRC: Urinalysis, Office (87962)Or dered By: STACEY Lopez on 11-09-2020 Bilirubin Ql (U) Negative Normal Comprehe nsive Internal Medicine; [facility] Work Phone: Bilirubin Ql (U) Negative Normal Comprehe nsive Internal Medicine; [facility] Work Phone: Glucose Test strip (U) [Mass/Vol] Negative Normal [facility]; [facility] Work Phone: Glucose Test strip (U) [Mass/Vol] Negative Normal [facility]; [facility] Work Phone: Hemoglobin Ql (U) Hemolyzed Large Normal Co mprehensive [facility]; [facility] Work Phone: Ketones Ql (U) Negative Normal Comprehens herminia Internal Medicine; [facility] Work Phone: Ketones Ql (U) Negative Normal Comprehens herminia [facility]; [facility] Work Phone: Leukocyte esterase Test strip Ql (U) Moderate Normal [facility]; [facility] Work Phone: Nitrite Ql (U) Negative Normal Comprehens herminia [facility]; [facility] Work Phone: Nitrite Ql (U) Negative Normal Comprehens herminia [facility]; [facility] Work Phone: pH (U) 7.0 [pH] Normal [facility]; [facility] Work Phone: Protein Ql (U) Negative Normal Comprehens herminia [facility]; [facility] Work Phone: Protein Ql (U) Negative Normal Comprehens herminia [facility]; [facility] Work Phone: Specific gravity (U) [Rel density] 1.005 1 Normal [facility]; [facility] Work Phone: Urobilinogen (24H U) [Mass/Time] 2 mg/dL Normal [facility]; [facility] Work Phone: HPV Auto Reflex PAP (74098)O rdered By: Freelance Data Entry on 07-27-2020 Microscopic observation Other stain Nom (Unsp spec) . Normal Comprehens herminia Internal Medicine Work Phone: Comment on above: Source.............C ervix;EndocervixNo. of containers..01 ThinPrep VialPATIENT NOT FASTINGPERFORMED BY: LabCo[address] [id number] Information: [id number] Pathology report final diagnosis Narrative SPRCS Normal [facility] Work Phone: Comment on above: UNSATISFACTORY FOR E VALUATION.Suggest follow up as clinically appropriate.Specimen processed and examined but unsatisfactory for evaluation ofepithelial abnormality because of insufficient cellularity.Z01.419Eloisa Garcia, Community Relations Representative (ASCP)Lilly Locke, Supervisory Community Relations Representative (ASCP) Source.............C ervix;EndocervixNo. of containers..01 ThinPrep VialPATIENT NOT FASTINGPERFORMED BY: Solar3D[address] [id number] Information: [id number] HPV Auto Reflex PAP (89537) PAPSMR Normal [facility] Work Phone: Comment on above: The Pap smear is a s creening test designed to aid in the detection ofpremalignant and malignant conditions of the uterine cervix. It is not adiagnostic procedure and should not be used as the sole means of detectingcervical cancer. Both false-positive and false-negative reports do occur. . Source.............C ervix;EndocervixNo. of containers..01 ThinPrep VialPATIENT NOT FASTINGPERFORMED BY: [employer] [id number] Information: [id number] HPV Auto Reflex PAP (48832) NEGHPV Normal [facility] Work Phone: Comment on above: The HPV DNA reflex c riteria were not met with this specimen resulttherefore, no HPV testing was performed. . Source.............C ervix;EndocervixNo. of containers..01 ThinPrep VialPATIENT NOT FASTINGPERFORMED BY: [employer] [id number] Information: [id number] CBC & PLATELETS (AUTO) (8502 7)Ordered By: Freelance Data Entry on 04-23-2020 Erythrocyte distribution width (RBC) [Ratio] 12.8 % Normal 11.7-15.4 [facility] Work Phone: Comment on above: PATIENT NOT FASTINGP ERFORMED BY: KIRSTEN [facility] Xcqocs2261 Page [facility] [id number] BY: [facility] Rhvychjctd1129 [facility] [id number] Hematocrit (Bld) [Volume fraction] 40.7 % Normal 34.0-46.6 [facility] Work Phone: Comment on above: PATIENT NOT FASTINGP ERFORMED BY: KIRSTEN [facility] Wkphke4358 [address] [facility] [id number] BY: LabCo[address] [id number] Hemoglobin (Bld) [Mass/Vol] 12.9 g/dL Normal 11.1-15.9 [facility] Work Phone: Comment on above: PATIENT NOT FASTINGP ERFORMED BY: CB [facility] Ldolsi4478 [facility] [id number] BY: Lab[address] [id number] MCH (RBC) [Entitic mass] 29.2 pg Normal 26.6-33.0 [facility] Work Phone: Comment on above: PATIENT NOT FASTINGP ERFORMED BY: KIRSTEN [facility] Tcoonw4402 [facility] [id number] BY: LabCo[address] [id number] MCHC (RBC) [Mass/Vol] 31.7 g/dL Normal 31.5-35.[address] [facility] Internal Medicine Work Phone: Comment on above: PATIENT NOT FASTINGP ERFORMED BY: KIRSTEN [facility] Hdpanw9697 [facility] [id number] BY: LabCo[address] [id number] MCV (RBC) [Entitic vol] 92 fL Normal 79-97 [facility] Work Phone: Comment on above: PATIENT NOT FASTINGP ERFORMED BY: CB [facility] Uebvuv3843 [facility] [id number] BY: LabCo[address] [id number] Platelets (Bld) [#/Vol] 518 {x10E3/uL} Abnormal 150-450 [facility] Work Phone: Comment on above: PATIENT NOT FASTINGP ERFORMED BY: KIRSTEN [facility] Fqrunl1297 [address] [facility] [id number] BY: Lab[address] [id number] Platelets (Bld) [#/Vol] 518 10*3/uL Abnormal 150-450 [facility]; [facility] Work Phone: RBC (Bld) [#/Vol] 4.42 {x10E6/uL} Normal 3.77-5.28 [facility] Internal Medicine Work Phone: Comment on above: PATIENT NOT FASTINGP ERFORMED BY: KIRSTEN [facility] Lgjeou3182 [facility] [id number] BY: Lab[address] [id number] RBC (Bld) [#/Vol] 4.42 10*6/uL Normal 3.77-5.28 [facility]; [facility] Work Phone: WBC (Bld) [#/Vol] 7.5 {x10E3/uL} Normal 3.4-10.[address] [facility] Internal Medicine Work Phone: Comment on above: PATIENT NOT FASTINGP ERFORMED BY: KIRSTEN [facility] Kyonja0013 [facility] [id number] BY: [address] [id number] WBC (Bld) [#/Vol] 7.5 10*3/uL Normal 3.4-10.8 [facility]; [facility] Work Phone: FERRITIN ([id number])Ordered By: Freelance Data Entry on 04-23-2020 Ferritin [Mass/Vol] 13 ng/mL Abnormal 15-[address] [facility] Internal Medicine Work Phone: Comment on above: PATIENT NOT FASTINGP ERFORMED BY: KIRSTEN [facility] Atwhfh8491 [facility] [id number] BY: [address] [id number] IRON (82437)Ordered By: Syst em Account Executive Sales Representative on 04-23-2020 Iron [Mass/Vol] 63 ug/dL Normal 27-139 [facility] Internal [facility] Work Phone: Comment on above: PATIENT NOT FASTINGP ERFORMED BY: KIRSTEN [facility] Mdlgdf7163 Abel RoadDublin [place] [id number] BY: Lab[address] [id number] Metabolic Panel, Comprehensi ve (00228)Ordered By: Freelance Data Entry on 04-23-2020 Albumin [Mass/Vol] 4.2 g/dL Normal 3.8-4.8 [facility] Internal Medicine Work Phone: Comment on above: PATIENT NOT FASTINGP ERFORMED BY: KIRSTEN [facility] Gfykei0334 Abel RoadDublin [place] [id number] BY: Lab[address] [id number] Albumin/Globulin [Mass ratio] 2.0 {ratio} Normal 1.2-2.2 [facility] Work Phone: Comment on above: PATIENT NOT FASTINGP ERFORMED BY: KIRSTEN [facility] Bptvsi1153 Abel Roadblin [place] [id number] BY: [facility] [address] [id number] ALP [Catalytic activity/Vol] 70 [iU]/L Normal 39-117 [facility] Work Phone: Comment on above: PATIENT NOT FASTINGP ERFORMED BY: CB [facility] Patzxc6243 [address] RoadDublin [place] [id number] BY: Lab[address] [id number] ALP [Catalytic activity/Vol] 70 U/L Normal 39-117 [facility]; [facility] Work Phone: ALT [Catalytic activity/Vol] 26 [iU]/L Normal 0-32 [facility] Work Phone: Comment on above: PATIENT NOT FASTINGP ERFORMED BY: CB [facility] Xtducu4912 Abel [facility] Hospitalin [place] [id number] BY: Lab[address] [id number] ALT [Catalytic activity/Vol] 26 U/L Normal 0-32 [facility]; [facility] Work Phone: AST [Catalytic activity/Vol] 32 [iU]/L Normal 0-40 [facility] Work Phone: Comment on above: PATIENT NOT FASTINGP ERFORMED BY: [facility] Aomzur3293 [address] [facility] [id number] BY: Lab[address] [id number] AST [Catalytic activity/Vol] 32 U/L Normal 0-40 [facility]; [facility] Work Phone: Bilirubin [Mass/Vol] 0.3 mg/dL Normal 0.0-1.[address] [facility] Work Phone: Comment on above: PATIENT NOT FASTINGP ERFORMED BY: [facility] Twbsdl5722 [facility] [id number] BY: [address] [id number] Calcium [Mass/Vol] 10.3 mg/dL Normal 8.7-10.3 [facility] Internal Medicine Work Phone: Comment on above: PATIENT NOT FASTINGP ERFORMED BY: [facility] Mcvgfh2169 [address] [facility] [id number] BY: Lab[address] [id number] Chloride [Moles/Vol] 103 mmol/L Normal 96-[address] [facility] Work Phone: Comment on above: PATIENT NOT FASTINGP ERFORMED BY: [facility] Ejqnhs2765 [address] [facility] [id number] BY: [address] [id number] CO2 [Moles/Vol] 29 mmol/L Normal 20-29 [facility] Internal Medicine Work Phone: Comment on above: PATIENT NOT FASTINGP ERFORMED BY: CB [facility] Tfdfja4944 [address] [facility]bl[facility] [id number] BY: BN [facility] [address] [id number] Creatinine [Mass/Vol] 0.76 mg/dL Normal 0.57-1.00 [facility] Work Phone: Comment on above: PATIENT NOT FASTINGP ERFORMED BY: CB [facility] Gzmpkk6549 Abel RoadNovant Health [facility] [id number] BY: BN [facility] [address] [id number] GFR/1.73 sq M predicted among blacks CKD-EPI (S/P/Bld) [Vol rate/Area] 95 mL/min/1.73 Normal [facility] Work Phone: Comment on above: PATIENT NOT FASTINGP ERFORMED BY: CB [facility] Agnhao2170 [address] [facility] [id number] BY: [facility] [address] [id number] GFR/1.73 sq M predicted among non-blacks CKD-EPI (S/P/Bld) [Vol rate/Area] 83 mL/min/1.73 Normal [facility] Work Phone: Comment on above: PATIENT NOT FASTINGP ERFORMED BY: CB [facility] Xsukdu2099 [address] [facility] [id number] BY: BN [facility] [address] [id number] Globulin (S) [Mass/Vol] 2.1 g/dL Normal 1.5-4.5 [facility] Work Phone: Comment on above: PATIENT NOT FASTINGP ERFORMED BY: CB [facility] Tsnjjp7870 [address] [facility] [id number] BY: [facility] [address] [id number] Glucose [Mass/Vol] 76 mg/dL Normal 65-99 [facility] Internal Medicine Work Phone: Comment on above: PATIENT NOT FASTINGP ERFORMED BY: KIRSTEN [facility] Ujemjh0666 [address] [facility] [id number] BY: LabCo[address] [id number] Potassium [Moles/Vol] 5.0 mmol/L Normal 3.5-5.[address] [facility] Internal Medicine Work Phone: Comment on above: PATIENT NOT FASTINGP ERFORMED BY: KIRSTEN [facility] Pcvxso8097 [address] [facility] [id number] BY: [facility] [address] [id number] Protein [Mass/Vol] 6.3 g/dL Normal 6.0-8.5 [facility] Internal Medicine Work Phone: Comment on above: PATIENT NOT FASTINGP ERFORMED BY: KIRSTEN [facility] Pymeuq5686 [address] [facility] [id number] BY: LabCo[address] [id number] Sodium [Moles/Vol] 140 mmol/L Normal 134-144 [facility] Internal Medicine Work Phone: Comment on above: PATIENT NOT FASTINGP ERFORMED BY: KIRSTEN [facility] Cijvhs8232 [address] [facility] [id number] BY: LabCo[address] [id number] Urea nitrogen [Mass/Vol] 18 mg/dL Normal 8-27 [facility] Internal Medicine Work Phone: Comment on above: PATIENT NOT FASTINGP ERFORMED BY: CB [facility] Tizoyg4927 [address] [facility] [id number] BY: LabCo[address] [id number] Urea nitrogen/Creatinine [Mass ratio] 24 mg/mg Normal 12-28 [facility] Work Phone: Comment on above: PATIENT NOT FASTINGP ERFORMED BY: KIRSTEN [employer]Christ HospitalIkmlta0379 [facility] [id number] BY: [employer] [id number] Methymalonic Acid, Serum (83 921)Ordered By: Freelance Data Entry on 04-23-2020 Methylmalonate [Moles/Vol] 245 nmol/L Normal 0-378 [facility] Work Phone: Comment on above: PATIENT NOT FASTINGP ERFORMED BY: KIRSTEN [employer] Oprkoh1994 [facility] [id number] BY: [employer] [id number] Methymalonic Acid, Serum (68499) SPRCS Normal [facility] Work Phone: Comment on above: This test was develo ped and its performance characteristicsdetermined by [employer]. It has not been cleared or approvedby the Food and Drug Administration. PATIENT NOT FASTINGP ERFORMED BY: KIRSTEN [employer]Christ HospitalFtfepr0088 [facility] [id number] BY: [employer] [id number] T3, FREE (TRIDOTHYRONINE) (2 2487)Ordered By: Freelance Data Entry on 04-23-2020 Free T3 [Mass/Vol] 2.7 pg/mL Normal 2.0-4.4 [facility] Work Phone: Comment on above: PATIENT NOT FASTINGP ERFORMED BY: KIRSTEN [employer]Christ HospitalNzqlbg8230 [facility] [id number] BY: [employer] [id number] T4, FREE (THYROXINE) (23480) Ordered By: Freelance Data Entry on 04-23-2020 Free T4 [Mass/Vol] 0.93 ng/dL Normal 0.82-1.77 [facility] Work Phone: Comment on above: PATIENT NOT FASTINGP ERFORMED BY: [employer] Trisdj4013 Abel Roadblin [place] [id number] BY: [employer] [id number] TSH ([id number])Ordered By: Krystal m Account Executive Sales Representative on 04-23-2020 TSH Qn 2.400 {uIU/mL} Normal 0.450-4.500 Comprehen on [facility] Internal Medicine Work Phone: Comment on above: PATIENT NOT FASTINGP ERFORMED BY: ExSafe LabCape Wind6370 [address] RoadNovant Health Mint [facility] [id number] BY: [employer] [id number] VITAMIN B12 AND FOLATES (826 07)Ordered By: Freelance Data Entry on 04-23-2020 Cobalamin (Vitamin B12) [Mass/Vol] 1114 pg/mL Normal 232-1245 [facility] Work Phone: Comment on above: PATIENT NOT FASTINGP ERFORMED BY: Domino6370 [address] [facility] [id number] BY: [employer] [id number] Folate [Mass/Vol] 12.8 ng/mL Normal Compreh [facility] Internal Medicine Work Phone: Comment on above: A serum folate bertin ntration of less than 3.1 ng/mL isconsidered to represent clinical deficiency. PATIENT NOT FASTINGP ERFORMED BY: Domino6370 [address] [facility] [id number] BY: [employer] [id number] POTASSIUM SERUM (32299)Order ed By: Freelance Data Entry on 2020 Potassium [Moles/Vol] 4.6 mmol/L Normal 3.5-5.2 [facility] prehensive Internal Medicine Work Phone: Comment on above: PATIENT NOT FASTINGP ERFORMED BY: InfiKnorp Onzmjy1485 [address] [facility]in [place] [id number] POTASSIUM SERUM (40605)Order ed By: Freelance Data Entry on 02-05-2020 Potassium [Moles/Vol] 5.4 mmol/L Abnormal 3.5-5.2 [facility] prehensive Internal Medicine Work Phone: Comment on above: PATIENT NOT FASTINGP ERFORMED BY: KIRSTEN [facility] Hqdify3518 Abel RoadDublin [place] [id number] POTASSIUM SERUM (61172)Order ed By: Freelance Data Entry on 12-03-2019 Potassium [Moles/Vol] 4.8 mmol/L Normal 3.5-5.2 [facility] prehensive Internal Medicine Work Phone: Comment on above: PATIENT NOT FASTINGP ERFORMED BY: KIRSTEN [facility] Cbraej1046 Abel RoadDublin [place] [id number] METABOLIC PANEL, COMPREHENSI VE (49591)Ordered By: Freelance Data Entry on 11-29-2019 Albumin [Mass/Vol] 4.4 g/dL Normal 3.8-4.8 [facility] Work Phone: Comment on above: PATIENT NOT FASTINGP ERFORMED BY: KIRSTEN [facility] Vmlntf4882 Abel RoadDublin [place] [id number] Albumin/Globulin [Mass ratio] 2.1 {ratio} Normal 1.2-2.2 [facility] Work Phone: Comment on above: PATIENT NOT FASTINGP ERFORMED BY: CB [facility] Zlbmos6218 Abel RoadDublin [place] [id number] ALP [Catalytic activity/Vol] 78 [iU]/L Normal 39-117 [facility] Work Phone: Comment on above: PATIENT NOT FASTINGP ERFORMED BY: CB [facility] Rromgx0533 Abel RoadDublin [place] [id number] ALP [Catalytic activity/Vol] 78 U/L Normal 39-117 [facility]; [facility] Work Phone: ALT [Catalytic activity/Vol] 18 [iU]/L Normal 0-32 [facility] Work Phone: Comment on above: PATIENT NOT FASTINGP ERFORMED BY: CB [facility] Xhaqqo2418 [address] RoadDublin [place] [id number] ALT [Catalytic activity/Vol] 18 U/L Normal 0-32 [facility]; [facility] Internal Medicine Work Phone: AST [Catalytic activity/Vol] 29 [iU]/L Normal 0-40 [facility] Internal Medicine Work Phone: Comment on above: PATIENT NOT FASTINGP ERFORMED BY: CB [facility] Pruhsp8355 [address] RoadDublin [place] [id number] AST [Catalytic activity/Vol] 29 U/L Normal 0-40 [facility] Internal Medicine; [facility] Internal Medicine Work Phone: Bilirubin [Mass/Vol] 0.3 mg/dL Normal 0.0-1.2 [facility] Work Phone: Comment on above: PATIENT NOT FASTINGP ERFORMED BY: CB [facility] Rdugul0138 Abel RoadDublin [place] [id number] Calcium [Mass/Vol] 10.3 mg/dL Normal 8.7-10.3 [facility] Internal Medicine Work Phone: Comment on above: PATIENT NOT FASTINGP ERFORMED BY: CB [facility] Ptgjmf6052 Abel RoadDublin [place] [id number] Chloride [Moles/Vol] 102 mmol/L Normal 96-106 [facility] Internal Medicine Work Phone: Comment on above: PATIENT NOT FASTINGP ERFORMED BY: CB [facility] Nqnswt3209 [address] RoadDublin [place] [id number] CO2 [Moles/Vol] 23 mmol/L Normal 20-29 [facility] Internal Medicine Work Phone: Comment on above: PATIENT NOT FASTINGP ERFORMED BY: CB [facility] Himmdi0259 Abel RoadDublin [place] [id number] Creatinine [Mass/Vol] 0.82 mg/dL Normal 0.57-1.[address] [facility] Internal Medicine Work Phone: Comment on above: PATIENT NOT FASTINGP ERFORMED BY: CB [facility] Ytkrsi5950 [address] RoadDublin [place] [id number] GFR/1.73 sq M predicted among blacks CKD-EPI (S/P/Bld) [Vol rate/Area] 87 mL/min/1.73 Normal [facility] Internal Medicine Work Phone: Comment on above: PATIENT NOT FASTINGP ERFORMED BY: KIRSTEN [facility] Eqzimh9128 Abel RoadDublin [place] [id number] GFR/1.73 sq M predicted among non-blacks CKD-EPI (S/P/Bld) [Vol rate/Area] 76 mL/min/1.73 Normal [facility] Internal Medicine Work Phone: Comment on above: PATIENT NOT FASTINGP ERFORMED BY: CB [facility] Cezsqj2464 [address] RoadDublin [place] [id number] Globulin (S) [Mass/Vol] 2.1 g/dL Normal 1.5-4.5 [facility] Internal Medicine Work Phone: Comment on above: PATIENT NOT FASTINGP ERFORMED BY: KIRSTEN [facility] Tcnrpv5734 [address] Roadblin [place] [id number] Glucose [Mass/Vol] 82 mg/dL Normal 65-99 [facility] Internal [facility] Work Phone: Comment on above: PATIENT NOT FASTINGP ERFORMED BY: KIRSTEN [facility] Bkxhvv1924 [address] Roadblin [place] [id number] Potassium [Moles/Vol] 5.3 mmol/L Abnormal 3.5-5.[address] [facility] Internal Medicine Work Phone: Comment on above: PATIENT NOT FASTINGP ERFORMED BY: CB [facility] Zkayzz5605 [address] RoadDublin [place] [id number] Protein [Mass/Vol] 6.5 g/dL Normal 6.0-8.5 [facility] Work Phone: Comment on above: PATIENT NOT FASTINGP ERFORMED BY: CB [facility] Duygpr7271 [address] RoadDublin [place] [id number] Sodium [Moles/Vol] 141 mmol/L Normal 134-144 [facility] Work Phone: Comment on above: PATIENT NOT FASTINGP ERFORMED BY: CB [facility] Knjwsr9275 [address] RoadDublin [place] [id number] Urea nitrogen [Mass/Vol] 12 mg/dL Normal 8-27 [facility] Work Phone: Comment on above: PATIENT NOT FASTINGP ERFORMED BY: KIRSTEN Pérez6370 AbelCrittenton Behavioral Health [id number] Urea nitrogen/Creatinine [Mass ratio] 15 mg/mg Normal 12- [facility] Work Phone: Comment on above: PATIENT NOT FASTINGP ERFORMED BY: KIRSTEN Mcnulty Biiusi6888 [facility] [id number] CALCIFIDIOL (05727) VIT D 25 Ordered By: Freelance Data Entry on 10-29-2019 25-Hydroxyvitamin D2+25-Hydroxyvitamin D3 [Mass/Vol] 67.0 ng/mL Normal 30.0-100.0 [facility] Work Phone: Comment on above: Vitamin D deficiency has been defined by the Dennis ofOhiohealth [facility] Methodist Hospitalcine and an Endocrine Society practice guideline as alevel of serum 25-OH vitamin D less than 20 ng/mL (1,2).The Endocrine Society went on to further define vitamin Dinsufficiency as a level between 21 and 29 ng/mL (2).1. IOM (Dennis of Medicine). 2010. Dietary reference intakes for calcium and D. [place]: The National Academies Press.2. Matilda MF, Cheryl LONDONO, Jonathan JIMÉNEZ, et al. Evaluation, treatment, and prevention of vitamin D deficiency: an Endocrine Society clinical practice guideline. JCEM. 2010; 96(7):1911-30. PATIENT WAS FASTINGP ERFORMED BY: KIRSTEN SamTotSpot Bnbhen1966 [facility] [id number] CBC W/AUTO DIFF WBC (76787)O rdered By: Freelance Data Entry on 10-29-2019 Basophils (Bld) [#/Vol] 0.1 {x10E3/uL} Normal 0.0-0.2 [facility] Work Phone: Comment on above: PATIENT WAS FASTINGP ERFORMED BY: KIRSTEN [employer] Ojuahx7661 [facility] [id number] Basophils (Bld) [#/Vol] 0.1 10*3/uL Normal 0.0-0.2 [facility]; [facility] Work Phone: Basophils/100 WBC (Bld) 1 % Normal [facility] Work Phone: Comment on above: PATIENT WAS FASTINGP ERFORMED BY: KIRSTEN [facility] Strqjw0048 Abel RoadDublin [place] [id number] Eosinophils (Bld) [#/Vol] 0.2 {x10E3/uL} Normal 0.0-0.4 [facility] Work Phone: Comment on above: PATIENT WAS FASTINGP ERFORMED BY: [facility] Vpyigw8212 [address] RoadDublin [place] [id number] Eosinophils (Bld) [#/Vol] 0.2 10*3/uL Normal 0.0-0.4 [facility]; [facility] Work Phone: Eosinophils/100 WBC (Bld) 3 % Normal [facility] Work Phone: Comment on above: PATIENT WAS FASTINGP ERFORMED BY: [facility] Ubonxh1693 [address] RoadDublin [place] [id number] Erythrocyte distribution width (RBC) [Ratio] 13.0 % Normal 11.7-15.4 [facility] Work Phone: Comment on above: PATIENT WAS FASTINGP ERFORMED BY: [facility] Bmtpnh3927 [address] RoadDublin [place] [id number] Hematocrit (Bld) [Volume fraction] 41.1 % Normal 34.0-46.6 [facility] Work Phone: Comment on above: PATIENT WAS FASTINGP ERFORMED BY: [facility] Lvklos2050 [address] RoadDublin [place] [id number] Hemoglobin (Bld) [Mass/Vol] 13.2 g/dL Normal 11.1-15.9 [facility] Work Phone: Comment on above: PATIENT WAS FASTINGP ERFORMED BY: CB [facility] Quefmx2158 [address] RoadDublin [place] [id number] Immature granulocytes (Bld) [#/Vol] 0.0 {x10E3/uL} Normal 0.0-0.1 [facility] Work Phone: Comment on above: PATIENT WAS FASTINGP ERFORMED BY: KIRSTEN [facility]6370 [facility] [id number] Immature granulocytes (Bld) [#/Vol] 0.0 10*3/uL Normal 0.0-0.1 [facility]; [facility] Work Phone: Immature granulocytes/100 WBC (Bld) 0 % Normal [facility] Work Phone: Comment on above: PATIENT WAS FASTINGP ERFORMED BY: KIRSTEN [facility]6370 [facility] [id number] Lymphocytes (Bld) [#/Vol] 1.7 {x10E3/uL} Normal 0.7-3.1 [facility] Work Phone: Comment on above: PATIENT WAS FASTINGP ERFORMED BY: KIRSTEN [place] 3721770 [facility] [id number] Lymphocytes (Bld) [#/Vol] 1.7 10*3/uL Normal 0.7-3.1 [facility]; [facility] Work Phone: Lymphocytes/100 WBC (Bld) 23 % Normal [facility] Work Phone: Comment on above: PATIENT WAS FASTINGP ERFORMED BY: KIRSTEN [facility]6370 [facility] [id number] MCH (RBC) [Entitic mass] 29.7 pg Normal 26.6-33.0 [facility] Internal Medicine Work Phone: Comment on above: PATIENT WAS FASTINGP ERFORMED BY: [facility]6370 [facility] [id number] MCHC (RBC) [Mass/Vol] 32.1 g/dL Normal 31.5-35.7 [facility] Internal Medicine Work Phone: Comment on above: PATIENT WAS FASTINGP ERFORMED BY: KIRSTEN [facility]6370 [facility] [id number] MCV (RBC) [Entitic vol] 93 fL Normal 79-97 [facility] Work Phone: Comment on above: PATIENT WAS FASTINGP ERFORMED BY: KIRSTEN LabCosharan Gwwtqn4131 [address] RoadDublin [place] [id number] Monocytes (Bld) [#/Vol] 0.7 {x10E3/uL} Normal 0.1-0.9 [facility] Work Phone: Comment on above: PATIENT WAS FASTINGP ERFORMED BY: KIRSTEN [facility] Xciqac1285 [address] RoadDublin [place] [id number] Monocytes (Bld) [#/Vol] 0.7 10*3/uL Normal 0.1-0.9 [facility]; [facility] Work Phone: Monocytes/100 WBC (Bld) 9 % Normal [facility] Work Phone: Comment on above: PATIENT WAS FASTINGP ERFORMED BY: KIRSTEN LabKiara MunroeNguhkw7599 [address] RoadDublin [place] [id number] Neutrophils (Bld) [#/Vol] 4.7 {x10E3/uL} Normal 1.4-7.0 [facility] Work Phone: Comment on above: PATIENT WAS FASTINGP ERFORMED BY: KIRSTEN [facility] Rylcao0015 [address] RoadDublin [place] [id number] Neutrophils (Bld) [#/Vol] 4.7 10*3/uL Normal 1.4-7.0 [facility]; [facility] Work Phone: Neutrophils/100 WBC (Bld) 64 % Normal [facility] Work Phone: Comment on above: PATIENT WAS FASTINGP ERFORMED BY: KIRSTEN [facility] Mufzuc8047 [address] RoadDublin [place] [id number] Platelets (Bld) [#/Vol] 608 {x10E3/uL} Abnormal 150-450 [facility] Work Phone: Comment on above: PATIENT WAS FASTINGP ERFORMED BY: KIRSETN [facility] Hcyvez8870 [address] RoadDublin [place] [id number] Platelets (Bld) [#/Vol] 608 10*3/uL Abnormal 150-450 [facility]; [facility] Work Phone: RBC (Bld) [#/Vol] 4.44 {x10E6/uL} Normal 3.77-5.28 [facility] Internal Medicine Work Phone: Comment on above: PATIENT WAS FASTINGP ERFORMED BY: KIRSTEN [facility] Wqnslu4706 [address] [facility] [id number] RBC (Bld) [#/Vol] 4.44 10*6/uL Normal 3.77-5.[address] [facility] Internal Medicine; [facility] Work Phone: WBC (Bld) [#/Vol] 7.4 {x10E3/uL} Normal 3.4-10.[address] [facility] Internal Medicine Work Phone: Comment on above: PATIENT WAS FASTINGP ERFORMED BY: KIRSTEN LabCape Wind6370 [facility] [id number] WBC (Bld) [#/Vol] 7.4 10*3/uL Normal 3.4-10.8 [facility]; [facility] Work Phone: LIPID PANEL ([id number])Ordered B y: [employer]elance Data Entry on 10-29-2019 Cholesterol [Mass/Vol] 191 mg/dL Normal 100-199 [facility] Work Phone: Comment on above: PATIENT WAS FASTINGP ERFORMED BY: KIRSTEN LabJeds [employer] Brew70 [facility] [id number] Cholesterol in HDL [Mass/Vol] 68 mg/dL Normal [facility] Work Phone: Comment on above: PATIENT WAS FASTINGP ERFORMED BY: ExSafe [facility] Qnrwhe0262 [address] [facility]in [place] [id number] Cholesterol in LDL [Mass/Vol] 105 mg/dL Abnormal 0-99 [facility] Work Phone: Comment on above: PATIENT WAS FASTINGP ERFORMED BY: KIRSTEN LabTotSpotrp Ohgdnj9757 [address] [facility] Down[facility] AssociatesNov[facility] [id number] Cholesterol in LDL/Cholesterol in HDL [Mass ratio] 1.5 {ratio} Normal 0.0-3.2 [facility] Work Phone: Comment on above: LDL/HDL Ratio Men Wo men 1/2 Avg.Risk 1.0 1.5 Avg.Risk 3.6 3.2 2X Avg.Risk 6.2 5.0 3X Avg.Risk 8.0 6.1 PATIENT WAS FASTINGP ERFORMED BY: KIRSTEN [facility] Wauoqe2288 Abel RoadDublin [place] [id number] Cholesterol in VLDL [Mass/Vol] 18 mg/dL Normal 5-40 [facility] Work Phone: Comment on above: PATIENT WAS FASTINGP ERFORMED BY: CB [facility] Qnzeut8360 [address] RoadDublin [place] [id number] Triglyceride [Mass/Vol] 91 mg/dL Normal 0-149 [facility] Work Phone: Comment on above: PATIENT WAS FASTINGP ERFORMED BY: KIRSTEN [facility] Enrkvz2759 [address] RoadDublin [place] [id number] METABOLIC PANEL, COMPREHENSI VE (09713)Ordered By: Freelance Data Entry on 10-29-2019 Albumin [Mass/Vol] 4.6 g/dL Normal 3.8-4.8 [facility] Internal Medicine Work Phone: Comment on above: Please note refere nce interval change PATIENT WAS FASTINGP ERFORMED BY: KIRSTEN [facility] Hqliqi3926 [address] RoadDublin [place] [id number] Albumin/Globulin [Mass ratio] 2.4 {ratio} Abnormal 1.2-2.2 [facility] Work Phone: Comment on above: PATIENT WAS FASTINGP ERFORMED BY: CB [facility] Dngyoy0447 [address] RoadDublin [place] [id number] ALP [Catalytic activity/Vol] 98 [iU]/L Normal 39-117 [facility] Work Phone: Comment on above: PATIENT WAS FASTINGP ERFORMED BY: CB [facility] Jictvb3365 [address] RoadDublin [place] [id number] ALP [Catalytic activity/Vol] 98 U/L Normal 39-117 [facility]; [facility] Work Phone: ALT [Catalytic activity/Vol] 71 [iU]/L Abnormal 0-32 [facility] Work Phone: Comment on above: PATIENT WAS FASTINGP ERFORMED BY: CB [facility] Pstrlk9840 [address] RoadDublin [place] [id number] ALT [Catalytic activity/Vol] 71 U/L Abnormal 0-32 [facility]; [facility] Internal Medicine Work Phone: AST [Catalytic activity/Vol] 60 [iU]/L Abnormal 0-40 [facility] Work Phone: Comment on above: PATIENT WAS FASTINGP ERFORMED BY: CB [facility] Hejlbz9207 [address] RoadDublin [place] [id number] AST [Catalytic activity/Vol] 60 U/L Abnormal 0-40 [facility]; [facility] Internal Medicine Work Phone: Bilirubin [Mass/Vol] 0.5 mg/dL Normal 0.0-1.2 [facility] Internal Medicine Work Phone: Comment on above: PATIENT WAS FASTINGP ERFORMED BY: KIRSTEN [facility] Crsogs1619 [address] RoadDublin [place] [id number] Calcium [Mass/Vol] 9.4 mg/dL Normal 8.7-10.3 [facility] Internal Medicine Work Phone: Comment on above: PATIENT WAS FASTINGP ERFORMED BY: CB [facility] Fsqzzb1548 [address] RoadDublin [place] [id number] Chloride [Moles/Vol] 105 mmol/L Normal 96-106 [facility] Internal Medicine Work Phone: Comment on above: PATIENT WAS FASTINGP ERFORMED BY: CB [facility] Pjirjz5194 [address] RoadDublin [place] [id number] CO2 [Moles/Vol] 24 mmol/L Normal 20-29 [facility] Internal Medicine Work Phone: Comment on above: PATIENT WAS FASTINGP ERFORMED BY: CB [facility] Rcwrhn3113 [address] RoadDublin [place] [id number] Creatinine [Mass/Vol] 0.83 mg/dL Normal 0.57-1.[address] [facility] Internal Medicine Work Phone: Comment on above: PATIENT WAS FASTINGP ERFORMED BY: KIRSTEN [facility] Zgowvt5187 [address] Roadblin [place] [id number] GFR/1.73 sq M predicted among blacks CKD-EPI (S/P/Bld) [Vol rate/Area] 86 mL/min/1.73 Normal [facility] Work Phone: Comment on above: PATIENT WAS FASTINGP ERFORMED BY: KIRSTEN [facility] Sbjovk0655 [address] RoadDublin [place] [id number] GFR/1.73 sq M predicted among non-blacks CKD-EPI (S/P/Bld) [Vol rate/Area] 75 mL/min/1.73 Normal [facility] Work Phone: Comment on above: PATIENT WAS FASTINGP ERFORMED BY: KIRSTEN LabMer[facility] Cwuahf1451 [address] RoadFormerly [facility] Centerin [place] [id number] Globulin (S) [Mass/Vol] 1.9 g/dL Normal 1.5-4.5 [facility] Internal Medicine Work Phone: Comment on above: PATIENT WAS FASTINGP ERFORMED BY: KIRSTEN LabCo Dixgwu0112 [address] [facility]in [place] [id number] Glucose [Mass/Vol] 81 mg/dL Normal 65-99 [facility] Internal Medicine Work Phone: Comment on above: PATIENT WAS FASTINGP ERFORMED BY: KIRSTEN LabCo Hpfzrg9987 [address] [facility] [id number] Potassium [Moles/Vol] 4.9 mmol/L Normal 3.5-5.[address] [facility] Internal Medicine Work Phone: Comment on above: PATIENT WAS FASTINGP ERFORMED BY: [facility] Jibdao0655 [address] [facility]in [place] [id number] Protein [Mass/Vol] 6.5 g/dL Normal 6.0-8.5 [facility] Internal [facility] Work Phone: Comment on above: PATIENT WAS FASTINGP ERFORMED BY: KIRSTEN [facility] Grrzlv3895 [facility] [id number] Sodium [Moles/Vol] 145 mmol/L Abnormal 134-144 Compre [facility] Internal Medicine Work Phone: Comment on above: PATIENT WAS FASTINGP ERFORMED BY: [facility] Dzvvom1033 [facility] [id number] Urea nitrogen [Mass/Vol] 16 mg/dL Normal 05-28 [facility] Work Phone: Comment on above: PATIENT WAS FASTINGP ERFORMED BY: [facility] Oqhlcw7878 [facility] [id number] Urea nitrogen/Creatinine [Mass ratio] 19 mg/mg Normal 09-28 [facility] Work Phone: Comment on above: PATIENT WAS FASTINGP ERFORMED BY: LabMcl[facility]6370 [facility] [id number] TSH ([id number])Ordered By: [employer] m Account Executive Sales Representative on 10-29-2019 TSH Qn 1.290 {uIU/mL} Normal 0.450-4.500 Comprehen on license of [facility] Internal Medicine Work Phone: Comment on above: PATIENT WAS FASTINGP ERFORMED BY: [facility] Yhltna3412 [facility] [id number] URINE HOLLIS CULTURE-IDENTIF[place] (80080)Ordered By: Freelance Data Entry on 09-27-2019 Bacteria identified Cx Nom (U) Final report Normal [facility] Work Phone: Comment on above: PATIENT NOT FASTINGP ERFORMED BY: [facility] Spwopv2519 [facility] [id number] Information: SRC:UC Bacteria identified Cx Nom (U) MUG Normal [facility] Work Phone: Comment on above: Mixed urogenital juana ra1,000 Colonies/mL PATIENT NOT FASTINGP ERFORMED BY: [facility] Eklhkg4902 [facility] [id number] Information: SRC:UC Urinalysis, Office ([id number])Or dered By: Calixto Villegas on 09-27-2019 Bilirubin Ql (U) Negative Normal Comprehe nsive Internal Medicine Work Phone: Glucose Test strip (U) [Mass/Vol] Negative Normal [facility] Work Phone: Hemoglobin Ql (U) + Abnormal Compreh ensive Internal Medicine Work Phone: Ketones Ql (U) Negative Normal Comprehens herminia Internal Medicine Work Phone: Leukocyte esterase Test strip Ql (U) Small Normal [facility] Work Phone: Nitrite Ql (U) Negative Normal Comprehens herminia Internal Medicine Work Phone: pH (U) 6 [pH] Abnormal [facility] Work Phone: Protein Ql (U) Negative Normal Comprehens herminia Internal Medicine Work Phone: Specific gravity (U) [Rel density] 1.010 1 Normal [facility] Work Phone: Urobilinogen (24H U) [Mass/Time] Normal Normal [facility] Work Phone: Urinalysis, Office ([id number])Or dered By: Calixto Roman on 09-27-2019 Bilirubin Ql (U) Negative Normal Comprehe nsive Internal Medicine; [facility] Work Phone: Glucose Test strip (U) [Mass/Vol] Negative Normal [facility]; [facility] Work Phone: Ketones Ql (U) Negative Normal [facility]; [facility] Work Phone: Nitrite Ql (U) Negative Normal [facility]; [facility] Work Phone: Protein Ql (U) Negative Normal [facility]; [facility] Work Phone: CALCIFEDIOL ([id number])Ordered B y: [employer]elance Data Entry on 12-27-2018 25-Hydroxyvitamin D2+25-Hydroxyvitamin D3 [Mass/Vol] 84.2 ng/mL Normal 30.0-100.0 [facility] Work Phone: Comment on above: Vitamin D deficiency has been defined by the Dennis ofMedicine and an Endocrine Society practice guideline as alevel of serum 25-OH vitamin D less than 20 ng/mL (1,2).The Endocrine Society went on to further define vitamin Dinsufficiency as a level between 21 and 29 ng/mL (2).1. IOM ([place] of Medicine). 2010. Dietary reference intakes for calcium and D. [place]: The National Academies Press.2. Matilda MF, Cheryl LONDONO, Jonathan JIMÉNEZ, et al. Evaluation, treatment, and prevention of vitamin D deficiency: an Endocrine Society clinical practice guideline. JCEM. 2010; 96(7):1911-30. PATIENT WAS FASTINGP ERFORMED BY: Hybrent[address] [id number] BY: [employer]amped[employer]70 Noteworthy Medical Systemsin [place] [id number] CBC & PLATELETS (AUTO) (8502 [id number])Ordered By: Freelance Data Entry on 12-27-2018 Erythrocyte distribution width (RBC) [Ratio] 14.4 % Normal 12.3-15.4 [facility] Work Phone: Comment on above: PATIENT WAS FASTINGP ERFORMED BY: Hybrent[address] [id number] BY: [employer]amped[employer]70 [address] [employer] Tr[employer] Servicesin [place] [id number] Hematocrit (Bld) [Volume fraction] 45.0 % Normal 34.0-46.6 [facility] Work Phone: Comment on above: PATIENT WAS FASTINGP ERFORMED BY: Hybrent[address] [id number] BY: [employer]70 [address] [employer] Tracing Servicesblin [place] [id number] Hemoglobin (Bld) [Mass/Vol] 14.7 g/dL Normal 11.1-15.9 [facility] Work Phone: Comment on above: PATIENT WAS FASTINGP ERFORMED BY: Hybrent[address] [id number] BY: [employer] LabEverpix Uskurt9828 Abel RoadDublin [place] [id number] MCH (RBC) [Entitic mass] 29.9 pg Normal 26.6-33.0 [facility] Work Phone: Comment on above: PATIENT WAS FASTINGP ERFORMED BY: LabCo[address] [id number] BY: KIRSTEN LabCoChrist HospitalWljhlt9145 [facility] [id number] MCHC (RBC) [Mass/Vol] 32.7 g/dL Normal 31.5-35.[address] [facility] Internal Medicine Work Phone: Comment on above: PATIENT WAS FASTINGP ERFORMED BY: [facility] [address] [id number] BY: KIRSTEN LabCoFrank Ville 8666270 [facility] [id number] MCV (RBC) [Entitic vol] 92 fL Normal 79-97 [facility] Work Phone: Comment on above: PATIENT WAS FASTINGP ERFORMED BY: [facility] [address] [id number] BY: KIRSTEN LabCoChrist HospitalFyaprd0590 [facility] [id number] Platelets (Bld) [#/Vol] 466 {x10E3/uL} Abnormal 150-379 [facility] Work Phone: Comment on above: PATIENT WAS FASTINGP ERFORMED BY: [employer] [id number] BY: LabCoChrist HospitalJgyxgs3039 [facility] [id number] Platelets (Bld) [#/Vol] 466 10*3/uL Abnormal 150-379 [facility]; [facility] Work Phone: RBC (Bld) [#/Vol] 4.92 {x10E6/uL} Normal 3.77-5.28 [facility] Internal Medicine Work Phone: Comment on above: PATIENT WAS FASTINGP ERFORMED BY: LabCo[address] [id number] BY: [employer] Tkezpy9446 [facility] [id number] RBC (Bld) [#/Vol] 4.92 10*6/uL Normal 3.77-5.28 [facility]; [facility] Work Phone: WBC (Bld) [#/Vol] 7.3 {x10E3/uL} Normal 3.4-10.[address] [facility] Internal Medicine Work Phone: Comment on above: PATIENT WAS FASTINGP ERFORMED BY: [employer] [address] [id number] BY: [employer].[facility] CenterKcutuf9535 [facility] [id number] WBC (Bld) [#/Vol] 7.3 10*3/uL Normal 3.4-10.8 [facility]; [facility] Work Phone: HEAVY METAL SCREEN ([phone])Or dered By: Freelance Data Entry on 12-27-2018 Arsenic (Bld) [Mass/Vol] 4 ug/L Normal 2-23 [facility] Work Phone: Comment on above: This test was devel115 network disks ped and its performance characteristicsdetermined by [employer]. It has not been cleared or approvedby the Food and Drug Administration. Detection Limit = 1 PATIENT WAS FASTINGP ERFORMED BY: [employer] [address] [id number] BY: [employer].Christ HospitalVeuvpt3540 [facility] [id number] Cadmium (Bld) [Mass/Vol] None Detected Normal 0.0-1.2 [facility] Internal Medicine Work Phone: Comment on above: This test was develo ped and its performance characteristicsdetermined by [employer]. It has not been cleared or approvedby the Food and Drug Administration. Environmental Exposure: Nonsmokers 0.3 - 1.2 Smokers 0.6 - 3.9 Occupational Exposure: OSHA Cadmium Std 5.0 HAYLEE 5.0 . Detection Limit = 0.5 PATIENT WAS FASTINGP ERFORMED BY: LabCo[address] [id number] BY: [facility] NorthTotSpotChrist HospitalPgdqgi4145 [facility] [id number] Cadmium (Bld) [Mass/Vol] Not detected Normal 0.0-1.2 [facility]; [facility] Work Phone: Lead (Bld) [Mass/Vol] None Detected Normal 0-4 [facility] Work Phone: Comment on above: Testing performed by Inductively coupled plasma/Mass Spectrometry. Environmental Exposure: WHO Recommendation <20 Occupational Exposure: OSHA Lead Std 40 HAYLEE 30 . Detection Limit = 1 . This test was developed and its performance characteristics determined by [employer]. It has not been cleared or approved by the Food and Drug Administration. PATIENT WAS FASTINGP ERFORMED BY: [employer] [address] [id number] BY: [employer].Christ HospitalTwunoy4707 [facility] [id number] Lead (Bld) [Mass/Vol] Not detected Normal 0-4 C omprehensive Internal Medicine; [facility] Work Phone: Mercury (Bld) [Mass/Vol] None Detected Normal 0.0-14.9 [facility] Work Phone: Comment on above: This test was develo ped and its performance characteristicsdetermined by [employer]. It has not been cleared or approvedby the Food and Drug Administration. Environmental Exposure: <15.0 Occupational Exposure: HAYLEE - Inorganic Mercury: 15.0 . Detection Limit = 1.0 PATIENT WAS FASTINGP ERFORMED BY: [employer].[address] [id number] BY: [employer].Christ HospitalUwheno0385 [facility] [id number] Mercury (Bld) [Mass/Vol] Not detected Normal 0.0-14.9 [facility]; [facility] Work Phone: HEPATITIS C ANTIBODY ([phone]) Ordered By: Freelance Data Entry on 12-27-2018 HCV Ab Signal/Cutoff IA [Rel units/Vol] {ratio} Normal 0.0-0.9 [facility] Work Phone: Comment on above: Negative: < 0.8 Inde terminate: 0.8 - 0.9 Positive: > 0.9 . The CDC recommends that a positive HCV antibody result be followed up with a HCV Nucleic Acid Amplification test (825173). PATIENT WAS FASTINGP ERFORMED BY: [employer].[address] [id number] BY: [employer].[place] 8666270 [facility] [id number] HCV Ab Signal/Cutoff IA [Rel units/Vol] {ratio} Normal 0.0-0.9 [facility]; [facility] Work Phone: METABOLIC PANEL, COMPREHENSI OMAR ([phone])Ordered By: Freelance Data Entry on 12-27-2018 Albumin [Mass/Vol] 4.9 g/dL Abnormal 3.6-4.8 [facility] Internal Medicine Work Phone: Comment on above: PATIENT WAS FASTINGP ERFORMED BY: [employer].[address] [id number] BY: [employer].Christ HospitalLnvdim5606 [facility] [id number] Albumin/Globulin [Mass ratio] 2.1 {ratio} Normal 1.2-2.2 [facility] Work Phone: Comment on above: PATIENT WAS FASTINGP ERFORMED BY: [employer].[address] [id number] BY: LabTotSpotFrank Ville 8666270 [facility] [id number] ALP [Catalytic activity/Vol] 77 [iU]/L Normal 39-117 [facility] Work Phone: Comment on above: PATIENT WAS FASTINGP ERFORMED BY: [employer].[address] [id number] BY: LabCo Nhequf5078 [address] [facility] [id number] ALP [Catalytic activity/Vol] 77 U/L Normal 39-117 [facility]; [facility] Work Phone: ALT [Catalytic activity/Vol] 18 [iU]/L Normal 0-32 [facility] Work Phone: Comment on above: PATIENT WAS FASTINGP ERFORMED BY: [employer].[address] [id number] BY: KIRSTEN LabTotSpot Igxjsv7244 [facility] [id number] ALT [Catalytic activity/Vol] 18 U/L Normal 0-32 [facility]; [facility] Work Phone: AST [Catalytic activity/Vol] 29 [iU]/L Normal 0-40 [facility] Work Phone: Comment on above: PATIENT WAS FASTINGP ERFORMED BY: [employer].[address] [id number] BY: KIRSTEN [employer] Gaqodq1893 [facility] [id number] AST [Catalytic activity/Vol] 29 U/L Normal 0-40 [facility]; [facility] Work Phone: Bilirubin [Mass/Vol] 0.4 mg/dL Normal 0.0-1.2 Comp rehensive Internal Medicine Work Phone: Comment on above: PATIENT WAS FASTINGP ERFORMED BY: [employer].[address] [id number] BY: KIRSTEN [employer] Tzuslc3401 [facility] [id number] Calcium [Mass/Vol] 10.1 mg/dL Normal 8.7-10.3 [facility] Internal [facility] Work Phone: Comment on above: PATIENT WAS FASTINGP ERFORMED BY: [employer].[address] [id number] BY: LabTotSpotFrank Ville 8666270 [facility] [id number] Chloride [Moles/Vol] 104 mmol/L Normal 96-106 Comp rehensive Internal Medicine Work Phone: Comment on above: PATIENT WAS FASTINGP ERFORMED BY: LabCo[address] [id number] BY: [facility] Qjhkbt4864 Abel RoadDuin [place] [id number] CO2 [Moles/Vol] 26 mmol/L Normal 20-29 [facility] Internal Medicine Work Phone: Comment on above: PATIENT WAS FASTINGP ERFORMED BY: [facility] [address] [id number] BY: CB [facility] Crjrqk7362 [address] [facility] [id number] Creatinine [Mass/Vol] 0.88 mg/dL Normal 0.57-1.00 [facility] Centerensive Internal [facility] Work Phone: Comment on above: PATIENT WAS FASTINGP ERFORMED BY: LabCo[address] [id number] BY: [facility] Pwcbcb2753 [address] [facility] [id number] GFR/1.73 sq M predicted among blacks CKD-EPI (S/P/Bld) [Vol rate/Area] 81 mL/min/1.73 Normal [facility] Work Phone: Comment on above: PATIENT WAS FASTINGP ERFORMED BY: LabTotSpot[address] [id number] BY: Lab[facility] Ivhmra3812 Abel RoadNovant Health [facility] [id number] GFR/1.73 sq M predicted among non-blacks CKD-EPI (S/P/Bld) [Vol rate/Area] 70 mL/min/1.73 Normal [facility] Work Phone: Comment on above: PATIENT WAS FASTINGP ERFORMED BY: LabCo[address] [id number] BY: CB [facility] Htlgvg9036 [facility] [id number] Globulin (S) [Mass/Vol] 2.3 g/dL Normal 1.5-4.5 [facility] Work Phone: Comment on above: PATIENT WAS FASTINGP ERFORMED BY: LabCo[address] [id number] BY: KIRSTEN [facility] Vevuvb2185 Abel RoadDublin [place] [id number] Glucose [Mass/Vol] 80 mg/dL Normal 65-99 [facility] Internal [facility] Work Phone: Comment on above: PATIENT WAS FASTINGP ERFORMED BY: [facility] [address] [id number] BY: KIRSTEN [facility] Eociqq2220 Abel RoadDublin [place] [id number] Potassium [Moles/Vol] 5.1 mmol/L Normal 3.5-5.[address] [facility] Internal Medicine Work Phone: Comment on above: PATIENT WAS FASTINGP ERFORMED BY: Lab[address] [id number] BY: KIRSTEN LabCo Vsyiju3960 Abel RoadDublin [place] [id number] Protein [Mass/Vol] 7.2 g/dL Normal 6.0-8.5 [facility] Work Phone: Comment on above: PATIENT WAS FASTINGP ERFORMED BY: Lab[address] [id number] BY: KIRSTEN LabCo Imfvhu5638 Abel RoadDublin [place] [id number] Sodium [Moles/Vol] 144 mmol/L Normal 134-144 [facility] Work Phone: Comment on above: PATIENT WAS FASTINGP ERFORMED BY: Lab[address] [id number] BY: [facility] Ounazx1253 Abel RoadDublin [place] [id number] Urea nitrogen [Mass/Vol] 22 mg/dL Normal 8-27 [facility] Internal Medicine Work Phone: Comment on above: PATIENT WAS FASTINGP ERFORMED BY: LabCo[address] [id number] BY: KIRSTEN [facility] Dvgiiw1294 Abel RoadDublin [place] [id number] Urea nitrogen/Creatinine [Mass ratio] 25 mg/mg Normal 09-28 [facility] Work Phone: Comment on above: PATIENT WAS FASTINGP ERFORMED BY: [employer].[address] [id number] BY: KIRSTEN [facility] Yhkvcy7148 Abel Roadblin [place] [id number] NMR Profile (46612)Ordered B y: Freelance Data Entry on 12-27-2018 Cholesterol [Mass/Vol] 200 mg/dL Abnormal 100-199 [facility] Work Phone: Comment on above: PATIENT WAS FASTINGP ERFORMED BY: [employer].[address] [id number] BY: KIRSTEN Lab[facility] Rrfnew6735 Abel RoadDublin [place] [id number] Cholesterol in HDL [Mass/Vol] 89 mg/dL Normal [facility] Work Phone: Comment on above: PATIENT WAS FASTINGP ERFORMED BY: [employer].[address] [id number] BY: [facility] Fstksb6319 [address] [facility] Alle[facility] HospitalDublin [place] [id number] Lipoprotein.alpha [Moles/Vol] 43.6 umol/L Normal [facility] Work Phone: Comment on above: PATIENT WAS FASTINGP ERFORMED BY: [employer].[address] [id number] BY: [facility] Grlkuh5105 [address] [facility] HospitalDublin [place] [id number] Lipoprotein.beta.subp article [Entitic length] 21.2 nm Normal [facility] Work Phone: Comment on above: INTERPRETATIVE INFORMATION PARTICLE CONCENTRATION AND SIZE <--Lower CVD Risk Higher CVD Risk--> LDL AND HDL PARTICLES Percentile in Reference Population HDL-P (total) High 75th 50th 25th Low >34.9 34.9 30.5 26.7 <26.7 . Small LDL-P Low 25th 50th 75th High <117 117 527 839 >839 . LDL Size <-Large (Pattern A)-> <-Small (Pattern B)-> 23.0 20.6 20.5 19.0 Small LDL-P and LDL Size are associated with CVD risk, but not afterLDL-P is taken into account. .These assays were developed and their performance characteristicsdetermined by [employer]. These assays have not been cleared by [place] Food and Drug Administration. The clinical utility of theselaboratory values have not been fully established. PATIENT WAS FASTINGP ERFORMED BY: Hybrent[address] [id number] BY: [employer]70 [facility] [id number] Lipoprotein.beta.subp article [Moles/Vol] 671 nmol/L Normal Comprehensiv e Internal Medicine Work Phone: Comment on above: Low < 1000 Moderate 1000 - 1299 Borderline-High 1300 - 1599 High 1600 - 2000 Very High > 2000 PATIENT WAS FASTINGP ERFORMED BY: Hybrent[address] [id number] BY: [employer] Eqmxir8076 [facility] [id number] Lipoprotein.beta.subp article.small [Moles/Vol] <90 Normal [facility] Work Phone: Comment on above: PATIENT WAS FASTINGP ERFORMED BY: Hybrent[address] [id number] BY: [employer].Christ HospitalWdsdqn6734 [facility] [id number] Triglyceride [Mass/Vol] 83 mg/dL Normal 0-149 [facility] Work Phone: Comment on above: PATIENT WAS FASTINGP ERFORMED BY: [employer].[address] [id number] BY: KIRSTEN Solar3DMclaren Northern Michigan6370 [facility] [id number] NMR Profile (27659) 94 mg/dL Normal 0-99 [facility] Work Phone: Comment on above: . Optimal < 100 Abov e optimal 100 - 129 Borderline 130 - 159 High 160 - 189 Very high > 189 .LDL-C is inaccurate if patient is non-fasting. PATIENT WAS FASTINGP ERFORMED BY: [employer].[address] [id number] BY: [employer].Christ HospitalPxhhcf1801 [facility] [id number] NMR Profile (80408) 89 mg/dL Normal [facility]; [facility] Work Phone: NMR Profile (68712) 83 mg/dL Normal 0-[address] [facility] Internal Medicine; [facility] Work Phone: NMR Profile (38710) 200 mg/dL Abnormal 100-[address] [facility] Internal Medicine; [facility] Work Phone: SED RATE ERYTHROCYTE (15576) Ordered By: Freelance Data Entry on 12-27-2018 ESR (Bld) [Velocity] 4 mm/h Normal 0-40 [facility] Internal Medicine Work Phone: Comment on above: PATIENT WAS FASTINGP ERFORMED BY: [employer].[address] [id number] BY: Solar3DMclaren Northern Michigan6370 [facility] [id number] T3, FREE (TRIDOTHYRONINE) (9 2790)Ordered By: Freelance Data Entry on 12-27-2018 Free T3 [Mass/Vol] 3.1 pg/mL Normal 2.0-4.4 [facility] Internal Medicine Work Phone: Comment on above: PATIENT WAS FASTINGP ERFORMED BY: Se[employer] [address] [id number] BY: InfiKno Hthumu8497 [facility] [id number] T4, FREE (THYROXINE) (87032) Ordered By: Freelance Data Entry on 12-27-2018 Free T4 [Mass/Vol] 1.06 ng/dL Normal 0.82-1.77 [facility] Internal Medicine Work Phone: Comment on above: PATIENT WAS FASTINGP ERFORMED BY: Hybrent[address] [id number] BY: [employer]amped[employer]70 [facility] [id number] TSH (41892)Ordered By: [employer] Account Executive Sales Representative on 12-27-2018 TSH Qn 1.700 {uIU/mL} Normal 0.450-4.500 [facility] Internal Medicine Work Phone: Comment on above: PATIENT WAS FASTINGP ERFORMED BY: Hybrent[address] [id number] BY: Domino6370 [facility] [id number] VITAMIN B-12 (CYANOCOBALAMIN ) (84189)Ordered By: Freelance Data Entry on 12-27-2018 Cobalamin (Vitamin B12) [Mass/Vol] 1433 pg/mL Abnormal 232-1245 [facility] Work Phone: Comment on above: PATIENT WAS FASTINGP ERFORMED BY: Se[employer] [address] [id number] BY: UPR-Onlinelin6370 [facility] [id number] CBC W/Diff, AutomatedOrdered By: Freelance Data Entry on 05-25-2018 Absolute Lymph 2.39 {X10_3/ul} Normal 0.83-4.51 [facility] Internal Medicine Work Phone: Absolute Neut 4.1 {X10_3/uL} Normal 2.0-7.7 Compreh ensive Internal Medicine Work Phone: Comment on above: [facility] [address] [place], [address] Basophils/100 WBC (Bld) 0.7 % Normal 0-1 [facility] Work Phone: Comment on above: [facility] [address] [place], [address] Basophils/100 WBC Auto (Bld) 0.7 % Normal 0-1 [facility] Work Phone: Eosinophils/100 WBC (Bld) 2.6 % Normal 0-5 [facility] Work Phone: Comment on above: [facility] [address] [place], [address] Eosinophils/100 WBC Auto (Bld) 2.6 % Normal 0-5 [facility] Work Phone: Erythrocyte distribution width Auto Ratio (RBC) 13.3 % Normal 11.6-14.6 [facility] Work Phone: Erythrocyte distribution width Ratio (RBC) 13.3 % Normal 11.6-14.6 [facility] Work Phone: Comment on above: [facility] [address] [place], [address] Hematocrit Auto Volume Fraction (Bld) 43.6 % Normal 37-47 Comprehens herminia Internal Medicine Work Phone: Hematocrit Volume Fraction (Bld) 43.6 % Normal 37-47 [facility] Work Phone: Comment on above: [facility] [address] [place], [address] Hemoglobin mass conc (Bld) 13.9 g/dL Normal 12.0-15.0 [facility] Work Phone: Comment on above: [facility] [address] [place], [address] IM GRAN % 0.300 % Normal 0.0-0.9 [facility] Work Phone: Comment on above: IG% - Immature Granu locytes (promyelocytes, myelocytes andmetamyelocytes) > 1% indicates that a LEFT SHIFT is Present. [facility] [address] [place], [address] Lymphocytes #/vol (Bld) 2.39 {X10_3/ul} Normal 0.83-4.51 [facility] Work Phone: Comment on above: [facility] [address] [place], [address] Lymphocytes/100 WBC (Bld) 32.8 % Normal 19-41 [facility] Work Phone: Comment on above: [facility] [address] [place], [address] Lymphocytes/100 WBC Auto (Bld) 32.8 % Normal 19-41 [facility] Work Phone: MCH Auto Entitic mass (RBC) 29.4 pg Normal 27.0-32.0 [facility] Work Phone: MCH Entitic mass (RBC) 29.4 pg Normal 27.0-32.0 [facility] Work Phone: Comment on above: [facility] [address] [place], [place], [address] MCHC Auto mass conc (RBC) 31.9 {g/gl} Abnormal 32-36 [facility] Work Phone: MCHC mass conc (RBC) 31.9 {g/gl} Abnormal 32-36 [facility] Internal [facility] Work Phone: Comment on above: [facility] [address] [place], [address] MCV Auto Entitic volume (RBC) 92.4 fL Normal 81-99 [facility] Work Phone: MCV Entitic volume (RBC) 92.4 fL Normal 81-99 [facility] Work Phone: Comment on above: [facility] [address] [place], [address] Monocytes/100 WBC Auto (Bld) 7.4 % Normal 0-10 [facility] Work Phone: Comment on above: [facility] [address] [place], [address] Monocytes/100 WBC Auto (Bld) 7.4 % Normal 0-10 [facility] Work Phone: Neutrophils/100 WBC (Bld) 56.2 % Normal 47-70 [facility] Work Phone: Comment on above: [facility] [address] [place], [address] Neutrophils/100 WBC Auto (Bld) 56.2 % Normal 47-70 [facility] Work Phone: Platelet mean volume Auto Entitic volume (Bld) 8.7 fL Normal 6.2-12.0 [facility] Work Phone: Platelet mean volume Entitic volume (Bld) 8.7 fL Normal 6.2-12.0 Comprehensi Internal Medicine Work Phone: Comment on above: [facility] [address] [place], [address] Platelets #/vol (Bld) 520 10*3/uL Abnormal 150-450 [facility] Internal Medicine Work Phone: Comment on above: [facility] [address] [place], [address] Platelets Auto #/vol (Bld) 520 10*3/uL Abnormal 150-450 [facility] Work Phone: RBC #/vol (Bld) 4.72 {M/mm3} Normal 4.2-5.4 Compreh ensive Internal Medicine Work Phone: Comment on above: [facility] [address] [place], [place], [id number] RBC Auto #/vol (Bld) 4.72 {M/mm3} Normal 4.2-5.[address] [facility] Work Phone: RDW SD 44.1 fL Abnormal 35.1-43.9 [facility] Work Phone: Comment on above: [facility] [address] [place], [place], [id number] WBC #/vol (Bld) 7.3 10*3/uL Normal 4.4-11.0 [facility] Internal Medicine Work Phone: Comment on above: [facility] [address] [place], [address] WBC Auto #/vol (Bld) 7.3 10*3/uL Normal 4.4-11.0 [facility] prehensive Internal Medicine Work Phone: CBC W/Diff, Automated 2.39 {X10_3/ul} Normal 0.83-4.51 [facility] Work Phone: CBC W/Diff, Automated 4.1 {X10_3/uL} Normal 2.0-7.7 [facility] Work Phone: CBC W/Diff, Automated 44.1 fL Abnormal 35.1-43.9 [facility] prehensive Internal Medicine Work Phone: CBC W/Diff, Automated 0.300 % Normal 0.0-0.9 [facility] prehensive Internal Medicine Work Phone: Comment on above: IG% - Immature Granu locytes (promyelocytes, myelocytes andmetamyelocytes) > 1% indicates that a LEFT SHIFT is Present. Comprehensive Metabolic Prof ilOrdered By: Freelance Data Entry on 05-25-2018 Comprehensive metabolic 2000 panel 65 mL/min Normal Comprehensi ve Internal Medicine Work Phone: Comment on above: Non- GFR Calc Serial Specimen #1, #2 or #3? [facility] [address] [place], [place], [id number] Comprehensive metabolic 2000 panel 72 mg/dL Abnormal 74-106 Comprehensi ve Internal Medicine Work Phone: Comment on above: Please note revised GLUCOSE reference range ynkkplzkd60/02/2018. Serial Specimen #1, #2 or #3? [address] [place] [address] [place], [place], [address] Comprehensive metabolic 2000 panel 14 mg/dL Normal 7-18 Comprehensi ve Internal Medicine Work Phone: Comment on above: Serial Specimen #1, #2 or #3? [address] [place] [address] [place], [place], [id number] Comprehensive metabolic 2000 panel 0.92 mg/dL Normal 0.55-1.02 Comprehensi ve Internal Medicine Work Phone: Comment on above: The validity of the calculated GFR AND GFRAA in patients over70 years has not been determined. Clinical correlation isessential. Serial Specimen #1, #2 or #3? [address] [place] [address] [place], [place], [id number] Comprehensive metabolic 2000 panel 79 mL/min Normal Comprehensi ve Internal Medicine Work Phone: Comment on above: GFR Calc Serial Specimen #1, #2 or #3? [address] [place] [address] [place], [place], [address] Comprehensive metabolic 2000 panel 15.1 {RATIO} Normal 10-20 Comprehensi ve Internal Medicine Work Phone: Comment on above: Serial Specimen #1, #2 or #3? [address] [place] [address] [place], [address] Comprehensive metabolic 2000 panel 7.2 g/dL Normal 6.4-8.2 Comprehensi ve Internal Medicine Work Phone: Comment on above: Serial Specimen #1, #2 or #3? [address] [place] [address] [place], [place], [address] Comprehensive metabolic 2000 panel 3.6 g/dL Normal 3.2-5.0 Comprehensi ve Internal Medicine Work Phone: Comment on above: Serial Specimen #1, #2 or #3? [address] [place] [address] [place], [place], [address] Comprehensive metabolic 2000 panel 9 1 Normal 5-15 Comprehensi ve Internal Medicine Work Phone: Comment on above: Serial Specimen #1, #2 or #3? [address] [place] [address] [place], [address] Comprehensive metabolic 2000 panel 1.0 {RATIO} Normal 0.9-2.4 Comprehensi ve Internal Medicine Work Phone: Comment on above: Serial Specimen #1, #2 or #3? [address] [place] [address] [place], [place], [address] Comprehensive metabolic 2000 panel 8.8 mg/dL Normal 8.5-10.1 Comprehensi ve Internal Medicine Work Phone: Comment on above: Serial Specimen #1, #2 or #3? [address] [place] [address] [place], [place], [address] Comprehensive metabolic 2000 panel 21 U/L Normal 15-37 Comprehensi ve Internal Medicine Work Phone: Comment on above: Serial Specimen #1, #2 or #3? [address] [place] [address] [place], [place], [address] Comprehensive metabolic 2000 panel 83 U/L Normal 45-117 Comprehensi ve Internal Medicine Work Phone: Comment on above: Serial Specimen #1, #2 or #3? [address] [place] [address] [place], [address] Comprehensive metabolic 2000 panel 25 U/L Normal 13-56 Comprehensi ve Internal Medicine Work Phone: Comment on above: Serial Specimen #1, #2 or #3? [address] [place] [address] [place], [place], [address] Comprehensive metabolic 2000 panel 26.0 mmol/L Normal 21.0-32.0 Comprehensi ve Internal Medicine Work Phone: Comment on above: Serial Specimen #1, #2 or #3? [address] [place] [address] [place], [place], [address] Comprehensive metabolic 2000 panel 0.40 mg/dL Normal 0.20-1.00 Comprehensi ve Internal Medicine Work Phone: Comment on above: Serial Specimen #1, #2 or #3? [address] [place] [address] [place], [place], [address] Comprehensive metabolic 2000 panel 107 mmol/L Normal 98-107 Comprehensi ve Internal Medicine Work Phone: Comment on above: Serial Specimen #1, #2 or #3? [address] [place] [address] [place], [place], [address] Comprehensive metabolic 2000 panel 4.3 mmol/L Normal 3.5-5.1 Comprehensi ve Internal Medicine Work Phone: Comment on above: Serial Specimen #1, #2 or #3? [address] [place] [address] [place], [place], [address] Comprehensive metabolic 2000 panel 142 mmol/L Normal 136-145 Comprehensi ve Internal Medicine Work Phone: Comment on above: Serial Specimen #1, #2 or #3? [address] [place] [address] [place], [place], [address] Hepatitis B Surface AgOrdere d By: Freelance Data Entry on 05-25-2018 HB SURF AG Negative Normal [facility] Work Phone: Hepatitis B Surface Ag Negative Normal [facility] Work Phone: Comment on above: [facility] (refer to re port for specific site)refer to report for address and phone number Hepatitis B Core Ab TotalOrd ered By: Freelance Data Entry on 05-25-2018 HBV core Ab Ql (S) Negative Normal [facility] Internal Medicine Work Phone: Comment on above: Performed at: [address] [id number] Director: Cruz Irizarry PhD, Phone: [phone] [facility] (refer to re port for specific site)refer to report for address and phone number LDHOrdered By: System Manage r on 05-25-2018 LDH enzyme act/vol 230 U/L Normal 84-246 [facility] Internal Medicine Work Phone: Comment on above: Serial Specimen #1, #2 or #3? [address] [place] [address] [place], [address] MagnesiumOrdered By: Freelance Data Entry on 05-25-2018 Magnesium mass conc 2.5 mg/dL Normal 1.6-2.[address] [facility] Internal Medicine Work Phone: Comment on above: Serial Specimen #1, #2 or #3? [address] [place] [address] [place], [place], [address] PhosphorusOrdered By: Freelance Data Entry on 05-25-2018 Phosphate mass conc 3.2 mg/dL Normal 2.5-4.[address] [facility] Internal Medicine Work Phone: Comment on above: Serial Specimen #1, #2 or #3? [address] [place] [address] [place], [address] Phosphorus 3.2 mg/dL Normal 2.5-4.9 [facility] Internal Medicine Work Phone: Uric AcidOrdered By: Freelance Data Entry on 05-25-2018 Urate mass conc 3.8 mg/dL Normal 2.6-6.0 [facility] Internal Medicine Work Phone: Comment on above: The drugs N-Acetylcy steine and Metamizole may falselydepress this assay. Serial Specimen #1, #2 or #3? [facility] [address] [place], [address] CALCIFEDIOL ([id number])Ordered B y: Freelance Data Entry on 03-15-2018 25-Hydroxyvitamin D2+25-Hydroxyvitamin D3 mass conc 64.6 ng/mL Normal 30.0-100.0 [facility] Work Phone: Comment on above: Vitamin D deficiency has been defined by the [place] ofMedicine and an Endocrine Society practice guideline as alevel of serum 25-OH vitamin D less than 20 ng/mL (1,2).The Endocrine Society went on to further define vitamin Dinsufficiency as a level between 21 and 29 ng/mL (2).1. IOM ([place] of Medicine). 2010. Dietary reference intakes for calcium and D. [place]: The National Academies Press.2. Matilda MF, Cheryl LONDONO, Jonathan JIMÉNEZ, et al. Evaluation, treatment, and prevention of vitamin D deficiency: an Endocrine Society clinical practice guideline. JCEM. 2010; 96(7):1911-30. PATIENT WAS FASTINGP ERFORMED BY: [employer]70 [facility] Systems[facility] [id number] CBC W/AUTO DIFF WBC ([id number])O rdered By: Freelance Data Entry on 03-15-2018 Basophils #/vol (Bld) 0.0 {x10E3/uL} Normal 0.0-0.2 [facility] Work Phone: Comment on above: PATIENT WAS FASTINGP ERFORMED BY: [id number] [facility] [id number] Basophils (Bld) [#/Vol] 0.0 10*3/uL Normal 0.0-0.2 [facility]; [facility] Work Phone: Basophils Auto #/vol (Bld) 0.0 {x10E3/uL} Normal 0.0-0.2 [facility] Work Phone: Basophils/100 WBC (Bld) 1 % Normal [facility] Work Phone: Comment on above: PATIENT WAS FASTINGP ERFORMED BY: KIRSTEN Solar3DKiara MunroeUcubhv0884 [facility] [id number] Basophils/100 WBC Auto (Bld) 1 % Normal [facility] Work Phone: Eosinophils #/vol (Bld) 0.2 {x10E3/uL} Normal 0.0-0.4 [facility] Work Phone: Comment on above: PATIENT WAS FASTINGP ERFORMED BY: KIRSTEN Mcnulty Peuuht8652 [facility] [id number] Eosinophils (Bld) [#/Vol] 0.2 10*3/uL Normal 0.0-0.4 [facility]; [facility] Work Phone: Eosinophils Auto #/vol (Bld) 0.2 {x10E3/uL} Normal 0.0-0.4 [facility] Work Phone: Eosinophils/100 WBC (Bld) 3 % Normal [facility] Work Phone: Comment on above: PATIENT WAS FASTINGP ERFORMED BY: KIRSTEN Solar3DKiara Ocekjq1836 [facility] [id number] Eosinophils/100 WBC Auto (Bld) 3 % Normal [facility] Work Phone: Erythrocyte distribution width Auto Ratio (RBC) 14.0 % Normal 12.3-15.4 [facility] Work Phone: Erythrocyte distribution width Ratio (RBC) 14.0 % Normal 12.3-15.4 [facility] Work Phone: Comment on above: PATIENT WAS FASTINGP ERFORMED BY: KIRSTEN Mcpherson HospitalKiara Rpytae1183 [facility] [id number] Hematocrit Auto Volume Fraction (Bld) 39.7 % Normal 34.0-46.6 Comprehens herminia Internal Medicine Work Phone: Hematocrit Volume Fraction (Bld) 39.7 % Normal 34.0-46.6 [facility] Work Phone: Comment on above: PATIENT WAS FASTINGP ERFORMED BY: [place] [id number] [facility] [id number] Hemoglobin mass conc (Bld) 13.0 g/dL Normal 11.1-15.9 [facility] Work Phone: Comment on above: PATIENT WAS FASTINGP ERFORMED BY: [place] [id number] [facility] [id number] Immature granulocytes #/vol (Bld) 0.0 {x10E3/uL} Normal 0.0-0.1 [facility] Work Phone: Comment on above: PATIENT WAS FASTINGP ERFORMED BY: [address] [id number] Immature granulocytes (Bld) [#/Vol] 0.0 10*3/uL Normal 0.0-0.1 [facility]; [facility] Work Phone: Immature granulocytes/100 WBC (Bld) 0 % Normal [facility] Work Phone: Comment on above: PATIENT WAS FASTINGP ERFORMED BY: [place] [id number] [facility] [id number] Lymphocytes #/vol (Bld) 2.1 {x10E3/uL} Normal 0.7-3.1 [facility] Work Phone: Comment on above: PATIENT WAS FASTINGP ERFORMED BY: [place] [id number] [facility] [id number] Lymphocytes (Bld) [#/Vol] 2.1 10*3/uL Normal 0.7-3.1 [facility]; [facility] Work Phone: Lymphocytes Auto #/vol (Bld) 2.1 {x10E3/uL} Normal 0.7-3.1 [facility] Work Phone: Lymphocytes/100 WBC (Bld) 29 % Normal [facility] Work Phone: Comment on above: PATIENT WAS FASTINGP ERFORMED BY: [place] 6447970 [facility] [id number] Lymphocytes/100 WBC Auto (Bld) 29 % Normal [facility] Work Phone: MCH Auto Entitic mass (RBC) 29.5 pg Normal 26.6-33.0 [facility] Work Phone: MCH Entitic mass (RBC) 29.5 pg Normal 26.6-33.0 [facility] Work Phone: Comment on above: PATIENT WAS FASTINGP ERFORMED BY: [facility]6370 [facility] [id number] MCHC Auto mass conc (RBC) 32.7 g/dL Normal 31.5-35.7 [facility] Work Phone: MCHC mass conc (RBC) 32.7 g/dL Normal 31.5-35.7 [facility] Internal Medicine Work Phone: Comment on above: PATIENT WAS FASTINGP ERFORMED BY: Solar3DMiss[facility] Hospital-SullivanUohpmp1239 [facility] [id number] MCV Auto Entitic volume (RBC) 90 fL Normal 79-97 [facility] Work Phone: MCV Entitic volume (RBC) 90 fL Normal 79-97 [facility] Work Phone: Comment on above: PATIENT WAS FASTINGP ERFORMED BY: [facility]6370 [facility] [id number] Monocytes #/vol (Bld) 0.7 {x10E3/uL} Normal 0.1-0.9 [facility] Work Phone: Comment on above: PATIENT WAS FASTINGP ERFORMED BY: [facility]6370 [facility] [id number] Monocytes (Bld) [#/Vol] 0.7 10*3/uL Normal 0.1-0.9 [facility]; [facility] Work Phone: Monocytes Auto #/vol (Bld) 0.7 {x10E3/uL} Normal 0.1-0.9 [facility] Work Phone: Monocytes/100 WBC (Bld) 9 % Normal [facility] Work Phone: Comment on above: PATIENT WAS FASTINGP ERFORMED BY: KIRSTEN [facility]6370 [facility] [id number] Monocytes/100 WBC Auto (Bld) 9 % Normal [facility] Work Phone: Neutrophils #/vol (Bld) 4.2 {x10E3/uL} Normal 1.4-7.0 [facility] Work Phone: Comment on above: PATIENT WAS FASTINGP ERFORMED BY: KIRSTEN [place] [id number] [facility] [id number] Neutrophils (Bld) [#/Vol] 4.2 10*3/uL Normal 1.4-7.0 [facility]; [facility] Work Phone: Neutrophils Auto #/vol (Bld) 4.2 {x10E3/uL} Normal 1.4-7.0 [facility] Work Phone: Neutrophils/100 WBC (Bld) 58 % Normal [facility] Work Phone: Comment on above: PATIENT WAS FASTINGP ERFORMED BY: KIRSTEN [place] [id number] [facility] [id number] Neutrophils/100 WBC Auto (Bld) 58 % Normal [facility] Work Phone: Platelets #/vol (Bld) 355 {x10E3/uL} Normal 150-379 [facility] Work Phone: Comment on above: PATIENT WAS FASTINGP ERFORMED BY: KIRSTEN [place] [id number] [facility] [id number] Platelets (Bld) [#/Vol] 355 10*3/uL Normal 150-379 [facility]; [facility] Work Phone: Platelets Auto #/vol (Bld) 355 {x10E3/uL} Normal 150-379 [facility] Work Phone: RBC #/vol (Bld) 4.40 {x10E6/uL} Normal 3.77-5.28 Comp [facility] Internal [facility] Work Phone: Comment on above: PATIENT WAS FASTINGP ERFORMED BY: KIRSTEN [employer]Christ HospitalEeiuwh8509 [facility] [id number] RBC (Bld) [#/Vol] 4.40 10*6/uL Normal 3.77-5.[address] [facility] Internal Medicine; [facility] Work Phone: RBC Auto #/vol (Bld) 4.40 {x10E6/uL} Normal 3.77-5.28 [facility] Work Phone: WBC #/vol (Bld) 7.3 {x10E3/uL} Normal 3.4-10.[address] [facility] Internal Medicine Work Phone: Comment on above: PATIENT WAS FASTINGP ERFORMED BY: [employer] [id number] [facility] [id number] WBC (Bld) [#/Vol] 7.3 10*3/uL Normal 3.4-10.8 [facility] Internal Medicine; [facility] Work Phone: WBC Auto #/vol (Bld) 7.3 {x10E3/uL} Normal 3.4-10.8 [facility] Work Phone: LIPID PANEL ([id number])Ordered B y: Freelance Data Entry on 03-15-2018 Cholesterol in HDL mass conc 76 mg/dL Normal [facility] Work Phone: Comment on above: PATIENT WAS FASTINGP ERFORMED BY: Solar3DMclaren Northern Michigan6370 [facility] [id number] Cholesterol in LDL mass conc 87 mg/dL Normal 0-99 [facility] Work Phone: Comment on above: PATIENT WAS FASTINGP ERFORMED BY: [employer]Christ HospitalOfepvu4355 [facility] [id number] Cholesterol in LDL/Cholesterol in HDL mass ratio 1.1 {ratio} Normal 0.0-3.2 [facility] Work Phone: Comment on above: LDL/HDL Ratio Men Wo men 1/2 Avg.Risk 1.0 1.5 Avg.Risk 3.6 3.2 2X Avg.Risk 6.2 5.0 3X Avg.Risk 8.0 6.1 PATIENT WAS FASTINGP ERFORMED BY: KIRSTEN [employer] Ycuiyc4013 [facility] [id number] Cholesterol in VLDL mass conc 11 mg/dL Normal 5-40 [facility] Work Phone: Comment on above: PATIENT WAS FASTINGP ERFORMED BY: KIRSTEN LabKiara MunroeBznikl5689 [facility] [id number] Cholesterol mass conc 174 mg/dL Normal 100-199 [facility] prehensive Internal Medicine Work Phone: Comment on above: PATIENT WAS FASTINGP ERFORMED BY: KIRSTEN LabMer[facility] Tzkuwi3416 [facility] [id number] Triglyceride mass conc 56 mg/dL Normal 0-149 [facility] Work Phone: Comment on above: PATIENT WAS FASTINGP ERFORMED BY: KIRSTEN Mcnulty Hiiiol1584 [facility] [id number] METABOLIC PANEL, COMPREHENSI VE ([id number])Ordered By: Freelance Data Entry on 03-15-2018 Albumin mass conc 4.1 g/dL Normal 3.6-4.8 Compreh ensive Internal Medicine Work Phone: Comment on above: PATIENT WAS FASTINGP ERFORMED BY: KIRSTEN Pricilasharan MunroeQcvywt4836 [facility] [id number] Albumin/Globulin mass ratio 2.0 {ratio} Normal 1.2-2.2 [facility] Work Phone: Comment on above: PATIENT WAS FASTINGP ERFORMED BY: KIRSTEN LabMclaren Northern Michigan6370 [facility] [id number] ALP [Catalytic activity/Vol] 67 U/L Normal 39-117 [facility]; [facility] Work Phone: ALP enzyme act/vol 67 [iU]/L Normal 39-117 Compre hensive Internal Medicine Work Phone: Comment on above: PATIENT WAS FASTINGP ERFORMED BY: KRISTEN LabMer[facility] Onvmww1159 [facility] [id number] ALT [Catalytic activity/Vol] 17 U/L Normal 0-32 [facility]; [facility] Internal Medicine Work Phone: ALT enzyme act/vol 17 [iU]/L Normal 0-32 [facility] Internal Medicine Work Phone: Comment on above: PATIENT WAS FASTINGP ERFORMED BY: KIRSTEN LabKiara MunroeJxhvlc5599 [facility] [place] [id number] AST [Catalytic activity/Vol] 25 U/L Normal 0-40 [facility] Internal Medicine; [facility] Internal Medicine Work Phone: AST enzyme act/vol 25 [iU]/L Normal 0-40 [facility] Internal Medicine Work Phone: Comment on above: PATIENT WAS FASTINGP ERFORMED BY: KIRSTEN LabKiara MunroeIrkyik1725 [facility]in [place] [id number] Bilirubin mass conc 0.3 mg/dL Normal 0.0-1.[address] [facility] Internal Medicine Work Phone: Comment on above: PATIENT WAS FASTINGP ERFORMED BY: KIRSTEN Munroelin6370 [facility] [id number] Calcium mass conc 9.1 mg/dL Normal 8.7-10.3 Compreh ensive Internal Medicine Work Phone: Comment on above: PATIENT WAS FASTINGP ERFORMED BY: KIRSTEN Munroelin6370 [facility] [id number] Chloride molar conc 105 mmol/L Normal 96-[address] [facility] Internal Medicine Work Phone: Comment on above: PATIENT WAS FASTINGP ERFORMED BY: KIRSTEN LabKiara MunroeWxvgia6065 [facility] [id number] CO2 molar conc 26 mmol/L Normal 20-29 Comprehens herminia Internal Medicine Work Phone: Comment on above: Please note refere nce interval change PATIENT WAS FASTINGP ERFORMED BY: KIRSTEN LabCosharan Mwgwou5771 [facility] [id number] Creatinine mass conc 0.88 mg/dL Normal 0.57-1.[address] [facility] Internal Medicine Work Phone: Comment on above: PATIENT WAS FASTINGP ERFORMED BY: KIRSTEN [facility] Xeiqor9949 [facility] [id number] GFR/1.73 sq M predicted among blacks CKD-EPI vol rate/area (S/P/Bld) 81 mL/min/1.73 Normal Comprehensiv e Internal Medicine Work Phone: Comment on above: PATIENT WAS FASTINGP ERFORMED BY: KIRSTEN [facility] Griamn8326 [facility] [id number] GFR/1.73 sq M predicted among non-blacks CKD-EPI vol rate/area (S/P/Bld) 70 mL/min/1.73 Normal [facility] Work Phone: Comment on above: PATIENT WAS FASTINGP ERFORMED BY: KIRSTEN Munroelin6370 [facility] [id number] Globulin Calculated mass conc (S) 2.1 g/dL Normal 1.5-4.5 [facility] Work Phone: Globulin mass conc (S) 2.1 g/dL Normal 1.5-4.5 [facility] Work Phone: Comment on above: PATIENT WAS FASTINGP ERFORMED BY: KIRSTEN Munroelin6370 [facility] [id number] Glucose mass conc 81 mg/dL Normal 65-99 Compreh ensive Internal Medicine Work Phone: Comment on above: PATIENT WAS FASTINGP ERFORMED BY: KIRSTEN Mcnulty Gzsfhz1314 [facility] [id number] Potassium molar conc 4.6 mmol/L Normal 3.5-5.2 Comp rehensive Internal Medicine Work Phone: Comment on above: PATIENT WAS FASTINGP ERFORMED BY: KIRSTEN LabMercy [facility] Oovprp3865 [facility] [id number] Protein mass conc 6.2 g/dL Normal 6.0-8.5 Compreh ensive Internal Medicine Work Phone: Comment on above: PATIENT WAS FASTINGP ERFORMED BY: KIRSTEN LabAaron Ville 1972870 [facility] [id number] Sodium molar conc 143 mmol/L Normal 134-144 Compreh ensive Internal Medicine Work Phone: Comment on above: PATIENT WAS FASTINGP ERFORMED BY: KIRSTEN Pricila Vwcjub8497 [facility] [id number] Urea nitrogen mass conc 19 mg/dL Normal 8- [facility] Work Phone: Comment on above: PATIENT WAS FASTINGP ERFORMED BY: KIRSTEN CecyMercy Hospital [facility] Mmvhyb2035 [facility] [id number] Urea nitrogen/Creatinine mass ratio 22 mg/mg Normal 12- [facility] Work Phone: Comment on above: PATIENT WAS FASTINGP ERFORMED BY: KIRSTEN [facility]yMer[facility] Lawulb7057 [facility] [id number] T3, FREE (TRIDOTHYRONINE) (9 [id number])Ordered By: Freelance Data Entry on 03-15-2018 T3 free mass conc 2.8 pg/mL Normal 2.0-4.4 Compreh ensive Internal Medicine Work Phone: Comment on above: PATIENT WAS FASTINGP ERFORMED BY: KIRSTEN Solar3DMercy Hospital [facility] Opxiey0578 [facility] [id number] T4, FREE (THYROXINE) ([id number]) Ordered By: Freelance Data Entry on 03-15-2018 T4 free mass conc 0.97 ng/dL Normal 0.82-1.77 Compreh ensive Internal Medicine Work Phone: Comment on above: PATIENT WAS FASTINGP ERFORMED BY: KIRSTEN Solar3DMclaren Northern Michigan6370 [facility] [id number] TSH ([id number])Ordered By: Syste m Account Executive Sales Representative on 03-15-2018 Thyrotropin Qn 1.700 {uIU/mL} Normal 0.450-4.500 Compr ehensive Internal Medicine Work Phone: Comment on above: PATIENT WAS FASTINGP ERFORMED BY: KIRSTEN LabMercy Hospital Springfield Cpknxd0353 [facility] [place] [id number] Pap IG, rfx HPV all pthOrder ed By: Freelance Data Entry on 02-16-2018 Microscopic observation Other stain Nom (Unsp spec) . Normal Comprehens herminia Internal Medicine Work Phone: Comment on above: Source.............C ervix;EndocervixNo. of containers..01 ThinPrep VialPATIENT NOT FASTINGPERFORMED BY: [address]Fair[address] [id number] Information: [id number] Pathology report final diagnosis Narrative SPR Normal [facility] Work Phone: Comment on above: NEGATIVE FOR INTRAEP ITHELIAL LESION AND MALIGNANCY.CELLULAR CHANGES ASSOCIATED WITH ATROPHY ARE PRESENT.Satisfactory for evaluation. Endocervical component may not bedistinguished in cases of atrophy.Z01.419Jatin Ruiz Community Relations Representative (ASCP) Source.............C ervix;EndocervixNo. of containers..01 ThinPrep VialPATIENT NOT FASTINGPERFORMED BY: [address]Fair[address] [id number] Information: [id number] Pap IG, rfx HPV all pth PAPSMR Normal [facility] Work Phone: Comment on above: The Pap smear is a s creening test designed to aid in the detection ofpremalignant and malignant conditions of the uterine cervix. It is not adiagnostic procedure and should not be used as the sole means of detectingcervical cancer. Both false-positive and false-negative reports do occur. .This liquid based ThinPrep(R) pap test was screened with theuse of an image guided system.The HPV DNA reflex criteria were not met with this specimen resulttherefore, no HPV testing was performed. . Source.............C ervix;EndocervixNo. of containers..01 ThinPrep VialPATIENT NOT FASTINGPERFORMED BY: [address]Fair[address] [id number] Information: [id number] Liver ProfileOrdered By: Janay tem Account Executive Sales Representative on 10-18-2017 Albumin mass conc 3.5 g/dL Normal 3.4-5.0 Compreh [facility] Internal Medicine Work Phone: Comment on above: Please note revised Albumin AND Globulin reference rangeeffective 2017. [facility] [address] [place], [place], [phone] ALP enzyme act/vol 75 U/L Normal 45-117 [facility] Work Phone: Comment on above: [facility] [address] [place], [place], [phone] ALT enzyme act/vol 42 U/L Normal 12-78 [facility] Internal Medicine Work Phone: Comment on above: [facility] [address] [place], [place], [phone] AST enzyme act/vol 35 U/L Normal 15-37 [facility] Internal [facility] Work Phone: Comment on above: [facility] [address] [place], [place], [phone] Bilirubin mass conc 0.40 mg/dL Normal 0.20-1.[address] [facility] Internal Medicine Work Phone: Comment on above: [facility] [address] [place], [place], [phone] Bilirubin.direct mass conc 0.11 mg/dL Normal 0.00-0.30 [facility] Work Phone: Comment on above: [facility] [address] [place], [place], [phone] Globulin Calculated mass conc (S) 3.4 g/dL Normal 2.2-4.2 [facility] Work Phone: Globulin mass conc (S) 3.4 g/dL Normal 2.2-4.2 [facility] Work Phone: Comment on above: [facility] [address] [place], [place], [address] Protein mass conc 6.9 g/dL Normal 6.4-8.2 Compreh ensive Internal Medicine Work Phone: Comment on above: [facility] [address] [place], [place], [address] CREATININE BLOOD ([id number])Orde red By: Freelance Data Entry on 09-08-2017 Creatinine mass conc 0.75 mg/dL Normal 0.57-1.00 Comp rehensive Internal Medicine Work Phone: Comment on above: for MRI test at [facility]; PATIENT NOT FASTINGPERFORMED BY: CB [facility] Fzboiz85[address] Abel RoadDublin [place] [id number] GFR/1.73 sq M predicted among blacks CKD-EPI vol rate/area (S/P/Bld) 99 mL/min/1.73 Normal Comprehensiv e Internal Medicine Work Phone: Comment on above: for MRI test at [facility]; PATIENT NOT FASTINGPERFORMED BY: KIRSTEN [facility] Rtxvpb7989 Abel RoadDublin [place] [id number] GFR/1.73 sq M predicted among non-blacks CKD-EPI vol rate/area (S/P/Bld) 86 mL/min/1.73 Normal [facility] Work Phone: Comment on above: for MRI test at [facility]; PATIENT NOT FASTINGPERFORMED BY: KIRSTEN [facility] Simapr4714 [address] Mobile Tracing Servicesin [place] [id number] C-REACTIVE PROTEIN ([id number])Or dered By: Freelance Data Entry on 08-07-2017 CRP mass conc 3.6 mg/L Normal 0.0-4.9 Comprehensi ve Internal Medicine Work Phone: Comment on above: PATIENT NOT FASTINGP ERFORMED BY: CB [facility] Cxprgu6636 Abel RoadDuin [place] [id number] CBC, PLATELETS & AUT DIFF (1 [id number])Ordered By: Freelance Data Entry on 08-07-2017 Basophils #/vol (Bld) 0.1 {x10E3/uL} Normal 0.0-0.2 [facility] Work Phone: Comment on above: PATIENT NOT FASTINGP ERFORMED BY: [facility] Ugwcru9541 Abel RoadDublin [place] [id number] Basophils (Bld) [#/Vol] 0.1 10*3/uL Normal 0.0-0.2 [facility]; [facility] Work Phone: Basophils Auto #/vol (Bld) 0.1 {x10E3/uL} Normal 0.0-0.2 [facility] Work Phone: Basophils/100 WBC (Bld) 1 % Normal [facility] Work Phone: Comment on above: PATIENT NOT FASTINGP ERFORMED BY: [place] 6447970 [facility] [id number] Basophils/100 WBC Auto (Bld) 1 % Normal [facility] Work Phone: Eosinophils #/vol (Bld) 0.1 {x10E3/uL} Normal 0.0-0.4 [facility] Work Phone: Comment on above: PATIENT NOT FASTINGP ERFORMED BY: [facility]6370 [facility] [id number] Eosinophils (Bld) [#/Vol] 0.1 10*3/uL Normal 0.0-0.4 [facility]; [facility] Work Phone: Eosinophils Auto #/vol (Bld) 0.1 {x10E3/uL} Normal 0.0-0.4 [facility] Work Phone: Eosinophils/100 WBC (Bld) 2 % Normal [facility] Work Phone: Comment on above: PATIENT NOT FASTINGP ERFORMED BY: [place] 6447970 [facility] [id number] Eosinophils/100 WBC Auto (Bld) 2 % Normal [facility] Work Phone: Erythrocyte distribution width Auto Ratio (RBC) 14.3 % Normal 12.3-15.4 [facility] Work Phone: Erythrocyte distribution width Ratio (RBC) 14.3 % Normal 12.3-15.4 [facility] Work Phone: Comment on above: PATIENT NOT FASTINGP ERFORMED BY: KIRSTEN LabCo Zrgkvu[address] [facility] Hospitalin [place] [id number] Hematocrit Auto Volume Fraction (Bld) 40.1 % Normal 34.0-46.6 [facility] Internal Medicine Work Phone: Hematocrit Volume Fraction (Bld) 40.1 % Normal 34.0-46.6 [facility] Work Phone: Comment on above: PATIENT NOT FASTINGP ERFORMED BY: CB [facility] Dinyac6325 Abel RoadNovant Health [facility] [id number] Hemoglobin mass conc (Bld) 13.2 g/dL Normal 11.1-15.9 [facility] Work Phone: Comment on above: PATIENT NOT FASTINGP ERFORMED BY: [facility] Ajfhbt0202 [address] [facility] [id number] Immature granulocytes #/vol (Bld) 0.0 {x10E3/uL} Normal 0.0-0.1 [facility] Work Phone: Comment on above: PATIENT NOT FASTINGP ERFORMED BY: LabCoChrist HospitalQptpft3051 [address] [facility] Hospitalin [place] [id number] Immature granulocytes (Bld) [#/Vol] 0.0 10*3/uL Normal 0.0-0.1 [facility]; [facility] Work Phone: Immature granulocytes/100 WBC (Bld) 0 % Normal [facility] Work Phone: Comment on above: PATIENT NOT FASTINGP ERFORMED BY: CB [facility] Nfppzb3322 [address] RoadFormerly Western Wake Medical Centerin [place] [id number] Lymphocytes #/vol (Bld) 2.1 {x10E3/uL} Normal 0.7-3.1 [facility] Work Phone: Comment on above: PATIENT NOT FASTINGP ERFORMED BY: CB [facility] Czttci1274 Abel RoadNovant Health [facility] [id number] Lymphocytes (Bld) [#/Vol] 2.1 10*3/uL Normal 0.7-3.1 [facility]; [facility] Work Phone: Lymphocytes Auto #/vol (Bld) 2.1 {x10E3/uL} Normal 0.7-3.1 [facility] Work Phone: Lymphocytes/100 WBC (Bld) 29 % Normal [facility] Work Phone: Comment on above: PATIENT NOT FASTINGP ERFORMED BY: KIRSTEN Pérez6370 [address] [facility] Down[facility] AssociatesNov[facility] [id number] Lymphocytes/100 WBC Auto (Bld) 29 % Normal [facility] Work Phone: MCH Auto Entitic mass (RBC) 28.8 pg Normal 26.6-33.0 [facility] Work Phone: MCH Entitic mass (RBC) 28.8 pg Normal 26.6-33.0 [facility] Work Phone: Comment on above: PATIENT NOT FASTINGP ERFORMED BY: KIRSTEN Munroelin6370 [place] Pa[facility] Down[facility] AssociatesNov[facility] [id number] MCHC Auto mass conc (RBC) 32.9 g/dL Normal 31.5-35.7 [facility] Work Phone: MCHC mass conc (RBC) 32.9 g/dL Normal 31.5-35.7 Comp [facility] Internal Medicine Work Phone: Comment on above: PATIENT NOT FASTINGP ERFORMED BY: KIRSTEN Munroelin6370 [address] [facility] Tracing ServicesAtrium Health [id number] MCV Auto Entitic volume (RBC) 88 fL Normal 79-97 [facility] Work Phone: MCV Entitic volume (RBC) 88 fL Normal 79-97 [facility] Work Phone: Comment on above: PATIENT NOT FASTINGP ERFORMED BY: KIRSTEN Munroelin6[address] [facility] Down[facility] AssociatesNov[facility] [id number] Monocytes #/vol (Bld) 0.6 {x10E3/uL} Normal 0.1-0.9 [facility] Work Phone: Comment on above: PATIENT NOT FASTINGP ERFORMED BY: KIRSTEN LabMclaren Northern Michigan6370 [facility] [id number] Monocytes (Bld) [#/Vol] 0.6 10*3/uL Normal 0.1-0.9 [facility]; [facility] Work Phone: Monocytes Auto #/vol (Bld) 0.6 {x10E3/uL} Normal 0.1-0.9 [facility] Work Phone: Monocytes/100 WBC (Bld) 9 % Normal [facility] Work Phone: Comment on above: PATIENT NOT FASTINGP ERFORMED BY: KIRSTEN [facility]6370 [facility] [id number] Monocytes/100 WBC Auto (Bld) 9 % Normal [facility] Work Phone: Neutrophils #/vol (Bld) 4.3 {x10E3/uL} Normal 1.4-7.0 [facility] Work Phone: Comment on above: PATIENT NOT FASTINGP ERFORMED BY: KIRSTEN [facility]6370 [facility] [id number] Neutrophils (Bld) [#/Vol] 4.3 10*3/uL Normal 1.4-7.0 [facility]; [facility] Work Phone: Neutrophils Auto #/vol (Bld) 4.3 {x10E3/uL} Normal 1.4-7.0 [facility] Work Phone: Neutrophils/100 WBC (Bld) 59 % Normal [facility] Work Phone: Comment on above: PATIENT NOT FASTINGP ERFORMED BY: KIRSTEN [facility]6370 [facility] [id number] Neutrophils/100 WBC Auto (Bld) 59 % Normal [facility] Work Phone: Platelets #/vol (Bld) 439 {x10E3/uL} Abnormal 150-379 [facility] Work Phone: Comment on above: PATIENT NOT FASTINGP ERFORMED BY: KIRSTEN LabAaron Ville 1972870 [facility] [id number] Platelets (Bld) [#/Vol] 439 10*3/uL Abnormal 150-379 [facility] Internal Medicine; [facility] Work Phone: Platelets Auto #/vol (Bld) 439 {x10E3/uL} Abnormal 150-379 [facility] Work Phone: RBC #/vol (Bld) 4.58 {x10E6/uL} Normal 3.77-5.28 Comp [facility] Internal Medicine Work Phone: Comment on above: PATIENT NOT FASTINGP ERFORMED BY: KIRSTEN LabKiara MunroeDbqgvh1262 [facility] [id number] RBC (Bld) [#/Vol] 4.58 10*6/uL Normal 3.77-5.28 Compr [facility] Internal Medicine; [facility] Work Phone: RBC Auto #/vol (Bld) 4.58 {x10E6/uL} Normal 3.77-5.28 [facility] Internal Medicine Work Phone: WBC #/vol (Bld) 7.2 {x10E3/uL} Normal 3.4-10.[address] [facility] Internal Medicine Work Phone: Comment on above: PATIENT NOT FASTINGP ERFORMED BY: KIRSTEN LabKiara MunroeBeajzh8196 [facility] [id number] WBC (Bld) [#/Vol] 7.2 10*3/uL Normal 3.4-10.8 Compre [facility] Internal Medicine; [facility] Internal Medicine Work Phone: WBC Auto #/vol (Bld) 7.2 {x10E3/uL} Normal 3.4-10.8 [facility] Internal Medicine Work Phone: METABOLIC PANEL, COMPREHENSI VE ([id number])Ordered By: Freelance Data Entry on 08-07-2017 Albumin mass conc 4.1 g/dL Normal 3.6-4.8 Compreh [facility] Internal Medicine Work Phone: Comment on above: PATIENT NOT FASTINGP ERFORMED BY: KIRSTEN LabCo Yzmtld9793 [facility] [id number] Albumin/Globulin mass ratio 2.0 {ratio} Normal 1.2-2.2 [facility] Internal Medicine Work Phone: Comment on above: PATIENT NOT FASTINGP ERFORMED BY: KIRSTEN Pérez6370 [address] RoadDublin [place] [id number] ALP [Catalytic activity/Vol] 76 U/L Normal 39-117 [facility]; [facility] Internal Medicine Work Phone: ALP enzyme act/vol 76 [iU]/L Normal 39-117 [facility] Internal Medicine Work Phone: Comment on above: PATIENT NOT FASTINGP ERFORMED BY: KIRSTEN [facility] Alsuco5201 [address] RoadDublin [place] [id number] ALT [Catalytic activity/Vol] 15 U/L Normal 0-32 [facility]; [facility] Internal Medicine Work Phone: ALT enzyme act/vol 15 [iU]/L Normal 0-32 [facility] Internal Medicine Work Phone: Comment on above: PATIENT NOT FASTINGP ERFORMED BY: KIRSTEN Aracelis Jovngo6462 [address] RoadDublin [place] [id number] AST [Catalytic activity/Vol] 21 U/L Normal 0-40 [facility] Internal Medicine; [facility] Internal Medicine Work Phone: AST enzyme act/vol 21 [iU]/L Normal 0-40 [facility] Internal Medicine Work Phone: Comment on above: PATIENT NOT FASTINGP ERFORMED BY: KIRSTEN LabPiotrrp Lxmmqp9106 [address] RoadDublin [place] [id number] Bilirubin mass conc 0.3 mg/dL Normal 0.0-1.[address] [facility] Internal Medicine Work Phone: Comment on above: PATIENT NOT FASTINGP ERFORMED BY: KIRSTEN [facility] Ppfsib9396 [address] RoadDublin [place] [id number] Calcium mass conc 9.2 mg/dL Normal 8.7-10.3 [facility] Internal Medicine Work Phone: Comment on above: PATIENT NOT FASTINGP ERFORMED BY: KIRSTEN [facility] Umngcf4344 [address] RoadDublin [place] [id number] Chloride molar conc 105 mmol/L Normal 96-106 Compr ehensive Internal Medicine Work Phone: Comment on above: PATIENT NOT FASTINGP ERFORMED BY: KIRSTEN LabCosharan MunroeCsgohf3864 [address] [facility] [id number] CO2 molar conc 25 mmol/L Normal 18-29 Comprehens herminia Internal Medicine Work Phone: Comment on above: PATIENT NOT FASTINGP ERFORMED BY: CB [facility] Svtisq2004 [address] [facility] [id number] Creatinine mass conc 0.79 mg/dL Normal 0.57-1.00 Comp rehensive Internal Medicine Work Phone: Comment on above: PATIENT NOT FASTINGP ERFORMED BY: KIRSTEN LabCosharan MunroeQvzopv5051 [facility] [id number] GFR/1.73 sq M predicted among blacks CKD-EPI vol rate/area (S/P/Bld) 93 mL/min/1.73 Normal Comprehensiv e Internal Medicine Work Phone: Comment on above: PATIENT NOT FASTINGP ERFORMED BY: KIRSTEN [facility] Aprsib8443 [address] [facility] [id number] GFR/1.73 sq M predicted among non-blacks CKD-EPI vol rate/area (S/P/Bld) 80 mL/min/1.73 Normal [facility] Work Phone: Comment on above: PATIENT NOT FASTINGP ERFORMED BY: CB [facility] Hpxiwv8670 [facility] [id number] Globulin Calculated mass conc (S) 2.1 g/dL Normal 1.5-4.5 [facility] Work Phone: Globulin mass conc (S) 2.1 g/dL Normal 1.5-4.5 [facility] Work Phone: Comment on above: PATIENT NOT FASTINGP ERFORMED BY: CB [facility] Ntujyz5391 [address] [facility]in [place] [id number] Glucose mass conc 73 mg/dL Normal 65-99 Compreh ensive Internal Medicine Work Phone: Comment on above: PATIENT NOT FASTINGP ERFORMED BY: KIRSTEN [facility] Ymmbmc9735 [address] RoadDublin [place] [id number] Potassium molar conc 4.5 mmol/L Normal 3.5-5.[address] [facility] Internal Medicine Work Phone: Comment on above: PATIENT NOT FASTINGP ERFORMED BY: KIRSTEN LabKiara MunroeYxasqb1666 [address] RoadDublin [place] [id number] Protein mass conc 6.2 g/dL Normal 6.0-8.5 Compreh ensive Internal Medicine Work Phone: Comment on above: PATIENT NOT FASTINGP ERFORMED BY: KIRSTEN [facility] Vppxgm1490 [address] RoadDublin [place] [id number] Sodium molar conc 145 mmol/L Abnormal 134-144 Compreh ensive Internal Medicine Work Phone: Comment on above: PATIENT NOT FASTINGP ERFORMED BY: KIRSTEN LabKiara MunroeHcmvpd8776 [address] [facility]in [place] [id number] Urea nitrogen mass conc 21 mg/dL Normal 8-27 [facility] Work Phone: Comment on above: PATIENT NOT FASTINGP ERFORMED BY: KIRSTEN [facility] Iouddz4320 [address] RoadDublin [place] [id number] Urea nitrogen/Creatinine mass ratio 27 mg/mg Normal 12- [facility] Work Phone: Comment on above: PATIENT NOT FASTINGP ERFORMED BY: KIRSTEN LabCo Wqonmy9775 [address] [facility]in [place] [id number] SED RATE ERYTHROCYTE ([id number]) Ordered By: Freelance Data Entry on 08-07-2017 ESR Velocity (Bld) 2 mm/h Normal 0-40 Compre [facility] Internal Medicine Work Phone: Comment on above: PATIENT NOT FASTINGP ERFORMED BY: KIRSTEN [facility] Ptdsbm1043 [address] RoadDublin [place] [id number] TSH (THYROID STIMULATING HOR NED) ([id number])Ordered By: Freelance Data Entry on 08-07-2017 Thyrotropin Qn 1.330 {uIU/mL} Normal 0.450-4.500 Compr ensive Internal Medicine Work Phone: Comment on above: PATIENT NOT FASTINGP ERFORMED BY: KIRSTEN LabCoChrist HospitalJpoegk8831 Page OsorioNovant [facility] [id number] CBC-Complete Blood Cnt No Di ffOrdered By: Freelance Data Entry on 05-24-2017 Erythrocyte distribution width Auto Ratio (RBC) 14.2 % Normal 11.6-14.6 [facility] Work Phone: Erythrocyte distribution width Ratio (RBC) 14.2 % Normal 11.6-14.6 [facility] Work Phone: Comment on above: [facility] [address] [place], [address] Hematocrit Auto Volume Fraction (Bld) 41.1 % Normal 37-47 Comprehens herminia Internal Medicine Work Phone: Hematocrit Volume Fraction (Bld) 41.1 % Normal 37-47 [facility] Work Phone: Comment on above: [facility] Irkrlunkyn[address] [place], [place], [phone] Hemoglobin mass conc (Bld) 13.2 g/dL Normal 12.0-15.0 [facility] Work Phone: Comment on above: [facility] Jfftyadpyc[address] [place], [place], [phone] MCH Auto Entitic mass (RBC) 29.1 pg Normal 27.0-32.0 [facility] Work Phone: MCH Entitic mass (RBC) 29.1 pg Normal 27.0-32.0 [facility] Work Phone: Comment on above: [facility] [address] [place], [address] MCHC Auto mass conc (RBC) 32.1 {g/gl} Normal 32-36 [facility] Work Phone: MCHC mass conc (RBC) 32.1 {g/gl} Normal 32-36 [facility] prehensive Internal Medicine Work Phone: Comment on above: [facility] Amvurcycdl[address] [place], [place], [phone] MCV Auto Entitic volume (RBC) 90.7 fL Normal 81-99 [facility] Work Phone: MCV Entitic volume (RBC) 90.7 fL Normal 81-99 [facility] Work Phone: Comment on above: [facility] [address] [place], [address] Platelet mean volume Auto Entitic volume (Bld) 8.4 fL Normal 6.2-12.0 [facility] Work Phone: Platelet mean volume Entitic volume (Bld) 8.4 fL Normal 6.2-12.0 Comprehensi ve Internal Medicine Work Phone: Comment on above: [facility] [address] [place], [address] Platelets #/vol (Bld) 428 10*3/uL Normal 150-[address] Internal Medicine Work Phone: Comment on above: [facility] [address]meubtvuj[address] [place], [address] Platelets Auto #/vol (Bld) 428 10*3/uL Normal 150-450 [facility] Work Phone: RBC #/vol (Bld) 4.53 {M/mm3} Normal 4.2-5.4 Compreh ensive Internal Medicine Work Phone: Comment on above: [facility] [address] [place], [address] RBC Auto #/vol (Bld) 4.53 {M/mm3} Normal 4.2-5.4 Co mprehensive Internal Medicine Work Phone: RDW SD 46.7 fL Abnormal 35.1-43.9 [facility] Work Phone: WBC #/vol (Bld) 8.8 10*3/uL Normal 4.4-11.0 Comprehe nsive Internal Medicine Work Phone: Comment on above: [facility] [address]oyrwgxzl[address] [place], [place], [address] WBC Auto #/vol (Bld) 8.8 10*3/uL Normal 4.4-11.0 Com prehensive Internal Medicine Work Phone: CBC-Complete Blood Cnt No Diff 46.7 fL Abnormal 35.1-43.9 [facility] Work Phone: Comment on above: [facility] spital [address] [place], [place], [address] Comprehensive Metabolic Prof ilOrdered By: Freelance Data Entry on 05-24-2017 Comprehensive metabolic 2000 panel 4.0 mmol/L Normal 3.5-5.1 Comprehensi ve Internal Medicine Work Phone: Comment on above: [facility] [address]jbszv[address] [place], [place], [phone] Comprehensive metabolic 2000 panel 9.0 mg/dL Normal 8.5-10.1 Comprehensi ve Internal Medicine Work Phone: Comment on above: [facility] [address]rrr[address] [place], [place], [address] Comprehensive metabolic 2000 panel 105 mmol/L Normal 98-107 Comprehensi ve Internal Medicine Work Phone: Comment on above: [facility] [address] [place], [place], [phone] Comprehensive metabolic 2000 panel 3.5 g/dL Normal 2.3-3.5 Comprehensi ve Internal Medicine Work Phone: Comment on above: [facility] Dubabpjglz[address] [place], [place], [address] Comprehensive metabolic 2000 panel 3.6 g/dL Normal 3.4-5.0 Comprehensi ve Internal Medicine Work Phone: Comment on above: [facility] [address] [place], [place], [id number] Comprehensive metabolic 2000 panel 7.1 g/dL Normal 6.4-8.2 Comprehensi ve Internal Medicine Work Phone: Comment on above: [facility] [address] [place], [place], [address] Comprehensive metabolic 2000 panel 28.0 mmol/L Normal 21.0-32.0 Comprehensi ve Internal Medicine Work Phone: Comment on above: [facility] [address] [place], [address] Comprehensive metabolic 2000 panel 81 mg/dL Normal 70-110 Comprehensi ve Internal Medicine Work Phone: Comment on above: [facility] [address] [place], [place], [address] Comprehensive metabolic 2000 panel 141 mmol/L Normal 136-145 Comprehensi ve Internal Medicine Work Phone: Comment on above: [facility] [address] [place], [place], [address] Comprehensive metabolic 2000 panel 0.40 mg/dL Normal 0.20-1.00 Comprehensi ve Internal Medicine Work Phone: Comment on above: [facility] [address] [place], [place], [address] Comprehensive metabolic 2000 panel 8 1 Normal 5-15 Comprehensi ve Internal Medicine Work Phone: Comment on above: [facility] [address] [place], [address] Comprehensive metabolic 2000 panel 20 U/L Normal 12-78 Comprehensi ve Internal Medicine Work Phone: Comment on above: [facility] [address] [place], [place], [address] Comprehensive metabolic 2000 panel 81 U/L Normal 45-117 Comprehensi ve Internal Medicine Work Phone: Comment on above: [facility] [address] [place], [address] Comprehensive metabolic 2000 panel 27.7 {RATIO} Abnormal 10-20 Comprehensi ve Internal Medicine Work Phone: Comment on above: [facility] [address] [place], [place], [address] Comprehensive metabolic 2000 panel 94 mL/min Normal Comprehensi ve Internal Medicine Work Phone: Comment on above: GFR Calc [facility] [address] [place], [address] Comprehensive metabolic 2000 panel 78 mL/min Normal Comprehensi ve Internal Medicine Work Phone: Comment on above: Non- GFR Calc [facility] [address] [place], [place], [id number] Comprehensive metabolic 2000 panel 22 mg/dL Abnormal 7-18 Comprehensi ve Internal Medicine Work Phone: Comment on above: [facility] [address] [place], [place], [address] Comprehensive metabolic 2000 panel 0.79 mg/dL Normal 0.55-1.02 Comprehensi ve Internal Medicine Work Phone: Comment on above: The validity of the calculated GFR AND GFRAA in patients over70 years has not been determined. Clinical correlation isessential. [facility] [address] [place], [place], [phone] Comprehensive metabolic 2000 panel 1.0 {RATIO} Normal 0.9-2.4 Comprehensi ve Internal Medicine Work Phone: Comment on above: [facility] [address] [place], [place], [phone] BUNOrdered By: System Manage r on 01-25-2017 Urea nitrogen mass conc 16 mg/dL Normal 7-18 [facility] Medicine Work Phone: Comment on above: [facility] [address] [place], [place], [address] Serum Creatinine AND GFROrde red By: Freelance Data Entry on 01-25-2017 Creatinine mass conc 0.85 mg/dL Normal 0.55-1.02 Comp rehensive Internal Medicine Work Phone: Comment on above: The validity of the calculated GFR AND GFRAA in patients over70 years has not been determined. Clinical correlation isessential. [facility] [address] [place], [place], [address] EST GFR - AA 87 mL/min Normal Comprehensiv e Internal Medicine Work Phone: Comment on above: GFR Calc GFR/1.73 sq M predicted among non-blacks MDRD vol rate/area (S/P/Bld) 72 mL/min/{1.73_m2} Normal Comprehe nsive Internal Medicine Work Phone: Comment on above: Non- GFR Calc [facility] [address] [place], [place], [id number] Serum Creatinine AND GFR 87 mL/min Normal [facility] Medicine Work Phone: Comment on above: GFR Calc [facility] [address] [place], [place], [phone] CALCIFIDIOL (68647) VIT D 25 Ordered By: Freelance Data Entry on 08-18-2016 25-Hydroxyvitamin D2+25-Hydroxyvitamin D3 mass conc 66.3 ng/mL Normal 30.0-100.0 [facility] Work Phone: Comment on above: Vitamin D deficiency has been defined by the Dennis ofMedicine and an Endocrine Society practice guideline as alevel of serum 25-OH vitamin D less than 20 ng/mL (1,2).The Endocrine Society went on to further define vitamin Dinsufficiency as a level between 21 and 29 ng/mL (2).1. IOM (Dennis of Medicine). 2010. Dietary reference intakes for calcium and D. [place]: The National Academies Press.2. Matilda MF, Cheryl NC, Jonathan JIMÉNEZ, et al. Evaluation, treatment, and prevention of vitamin D deficiency: an Endocrine Society clinical practice guideline. JCEM. 2010; 96(7):1911-30. PATIENT WAS FASTINGP ERFORMED BY: KIRSTEN LabKiara Vhusse2851 Abel RoadDublin [place] [id number] LIPID PANEL ([id number])Ordered B y: Freelance Data Entry on 08-18-2016 Cholesterol in HDL mass conc 67 mg/dL Normal [facility] Work Phone: Comment on above: PATIENT WAS FASTINGP ERFORMED BY: KIRSTEN LabKiara Akl[address] [facility] [place] [id number] Cholesterol in LDL mass conc 84 mg/dL Normal 0-99 [facility] Work Phone: Comment on above: PATIENT WAS FASTINGP ERFORMED BY: KIRSTEN Pricilasharan MunroeMfuhwm[address]99 [address] [facility] [place] [id number] Cholesterol in LDL/Cholesterol in HDL mass ratio 1.3 {ratio_units} Normal 0.0-3.2 [facility] Work Phone: Comment on above: LDL/HDL Ratio Men Wo men 1/2 Avg.Risk 1.0 1.5 Avg.Risk 3.6 3.2 2X Avg.Risk 6.2 5.0 3X Avg.Risk 8.0 6.1 PATIENT WAS FASTINGP ERFORMED BY: KIRSTEN Pricilasharan Ezzucr[address] [facility] [place] [id number] Cholesterol in VLDL mass conc 17 mg/dL Normal 5-40 [facility] Medicine Work Phone: Comment on above: PATIENT WAS FASTINGP ERFORMED BY: KIRSTEN SamPiotrsharan MunroeIeypim[address]22 [address] [facility] [place] [id number] Cholesterol mass conc 168 mg/dL Normal 100-199 [facility] prehensive Internal Medicine Work Phone: Comment on above: PATIENT WAS FASTINGP ERFORMED BY: KIRSTEN LabCosharan Sozuiq7536 Abel RoadDublin [place] [id number] Triglyceride mass conc 83 mg/dL Normal 0-149 [facility] Internal Medicine Work Phone: Comment on above: PATIENT WAS FASTINGP ERFORMED BY: KIRSTEN LabKiara MunroePhrfbw9837 Abel RoadDublin [place] [id number] METABOLIC PANEL, COMPREHENSI VE ([id number])Ordered By: Freelance Data Entry on 08-18-2016 Albumin mass conc 4.2 g/dL Normal 3.6-4.8 [facility] Internal Medicine Work Phone: Comment on above: PATIENT WAS FASTINGP ERFORMED BY: KIRSTEN LabKiara MunroeYguvsm0267 [facility] [id number] Albumin/Globulin mass ratio 1.8 {ratio} Normal 1.1-2.5 [facility] Internal Medicine Work Phone: Comment on above: PATIENT WAS FASTINGP ERFORMED BY: KIRSTEN LabCo Rtarip1059 [address] [facility] [id number] ALP [Catalytic activity/Vol] 73 U/L Normal 39-117 [facility] Internal Medicine; [facility] Internal Medicine Work Phone: ALP enzyme act/vol 73 [iU]/L Normal 39-117 [facility] Internal Medicine Work Phone: Comment on above: PATIENT WAS FASTINGP ERFORMED BY: KIRSTEN Munroelin6370 [facility] [id number] ALT [Catalytic activity/Vol] 13 U/L Normal 0-32 [facility]; [facility] Internal Medicine Work Phone: ALT enzyme act/vol 13 [iU]/L Normal 0-32 [facility] Internal Medicine Work Phone: Comment on above: PATIENT WAS FASTINGP ERFORMED BY: KIRSTEN LabKiara MunroeGfqnik9445 [facility] [id number] AST [Catalytic activity/Vol] 20 U/L Normal 0-40 [facility]; [facility] Internal Medicine Work Phone: AST enzyme act/vol 20 [iU]/L Normal 0-40 [facility] Internal Medicine Work Phone: Comment on above: PATIENT WAS FASTINGP ERFORMED BY: KIRSTEN LabKiara MunroeHdfgpe9038 [address] [facility] [id number] Bilirubin mass conc 0.5 mg/dL Normal 0.0-1.[address] [facility] Internal Medicine Work Phone: Comment on above: PATIENT WAS FASTINGP ERFORMED BY: KIRSTEN Mcnulty Unqoai[address]136 [address] [facility] [id number] Calcium mass conc 9.1 mg/dL Normal 8.7-10.3 Compreh ensive Internal Medicine Work Phone: Comment on above: PATIENT WAS FASTINGP ERFORMED BY: KIRSTEN LabCo Hggrme2939 [address] [facility] [place] [id number] Chloride molar conc 104 mmol/L Normal 97-106 Compr ehensive Internal Medicine Work Phone: Comment on above: PATIENT WAS FASTINGP ERFORMED BY: LabCo Xhqxvx1188 [facility] [id number] CO2 molar conc 25 mmol/L Normal 18-29 Comprehens herminia Internal Medicine Work Phone: Comment on above: PATIENT WAS FASTINGP ERFORMED BY: Pricila Qoxmfn0070 [facility] [id number] Creatinine mass conc 0.73 mg/dL Normal 0.57-1.00 Comp rehensive Internal Medicine Work Phone: Comment on above: PATIENT WAS FASTINGP ERFORMED BY: [facility] Vnnbjy6402 [facility] [id number] GFR/1.73 sq M predicted among blacks CKD-EPI vol rate/area (S/P/Bld) 103 mL/min/1.73 Normal Comprehensiv e Internal Medicine Work Phone: Comment on above: PATIENT WAS FASTINGP ERFORMED BY: LabCo Oaxatp6235 [facility] [id number] GFR/1.73 sq M predicted among non-blacks CKD-EPI vol rate/area (S/P/Bld) 89 mL/min/1.73 Normal [facility] Work Phone: Comment on above: PATIENT WAS FASTINGP ERFORMED BY: KIRSTEN LabCo Hbkihr5600 [facility] [id number] Globulin Calculated mass conc (S) 2.4 g/dL Normal 1.5-4.5 [facility] Work Phone: Globulin mass conc (S) 2.4 g/dL Normal 1.5-4.5 [facility] Work Phone: Comment on above: PATIENT WAS FASTINGP ERFORMED BY: KIRSTEN LabKiara MunroeRtlmzd1694 [facility] [id number] Glucose mass conc 72 mg/dL Normal 65-99 Compreh ensive Internal Medicine Work Phone: Comment on above: PATIENT WAS FASTINGP ERFORMED BY: KIRSTEN Munroelin6370 [facility] [id number] Potassium molar conc 4.5 mmol/L Normal 3.5-5.2 Comp rehensive Internal Medicine Work Phone: Comment on above: PATIENT WAS FASTINGP ERFORMED BY: KIRSTEN Munroelin6370 [facility] [id number] Protein mass conc 6.6 g/dL Normal 6.0-8.5 Compreh ensive Internal Medicine Work Phone: Comment on above: PATIENT WAS FASTINGP ERFORMED BY: KIRSTEN Munroelin6370 [facility] [id number] Sodium molar conc 143 mmol/L Normal 136-144 Compreh ensive Internal Medicine Work Phone: Comment on above: PATIENT WAS FASTINGP ERFORMED BY: KIRSTEN Munroelin6370 [facility] [id number] Urea nitrogen mass conc 19 mg/dL Normal 8-27 [facility] Medicine Work Phone: Comment on above: PATIENT WAS FASTINGP ERFORMED BY: KIRSTEN LabKiara MunroeFxqajg4797 [facility] [id number] Urea nitrogen/Creatinine mass ratio 26 mg/mg Normal 11-26 [facility] Work Phone: Comment on above: PATIENT WAS FASTINGP ERFORMED BY: KIRSTEN LabKiara MunroeXpcpce1623 [facility] [id number] TSH ([id number])Ordered By: Krystal Rabago on 08-18-2016 Thyrotropin Qn 2.550 {uIU/mL} Normal 0.450-4.500 Compr ehensive Internal Medicine Work Phone: Comment on above: PATIENT WAS FASTINGP ERFORMED BY: LabTotSpot Jgxauw2838 [facility] [id number] HPV automatic (01830)Ordered By: Freelance Data Entry on 08-11-2016 HPV 16+18+31+33+35+39+45+ 51+52+56+58+59+68 DNA Probe+sig amp Ql (Cvx) Negative Normal [facility] Medicine Work Phone: Comment on above: This high-risk HPV t est detects thirteen high-risk types(16/18/31/33/35/39/45/51/52/56/58/59/68) without differentiation. . Source.............C ervix;EndocervixNo. of containers..01 CYTYC Thin Prep VialPATIENT NOT FASTINGPERFORMED BY: Upgrade, IncDavis Hospital and Medical Center [id number] BY: =G Instapagar120 Viscose ClosuresDavis Hospital and Medical Center [id number] Information: [id number] HPV 16+18+31+33+35+39+45+ 51+52+56+58+59+68 DNA Probe+sig amp Ql (Cvx) Negative Normal [facility]; [facility] Work Phone: Microscopic observation Other stain Nom (Unsp spec) . Normal Comprehens herminia Internal Medicine Work Phone: Comment on above: Source.............C ervix;EndocervixNo. of containers..01 CYTYC Thin Prep VialPATIENT NOT FASTINGPERFORMED BY: [place] [place] [id number] BY: =G [employer] [place] [id number] Information: [id number] Pathology report final diagnosis Narrative SPRCS Normal [facility] Internal Medicine Work Phone: Comment on above: NEGATIVE FOR INTRAEP ITHELIAL LESION AND MALIGNANCY.THIS SPECIMEN WAS RESCREENED PART OF OUR INTERNAL CONTROL SPECIALIST PROGRAM.Satisfactory for evaluation. Endocervical and/or squamous metaplasticcells (endocervical component) are present.Z11.51Dacathie Marr, Community Relations Representative (ASCP)Tay Patel, Supervisory Community Relations Representative (ASCP) Source.............C ervix;EndocervixNo. of containers..01 CYTYC Thin Prep VialPATIENT NOT FASTINGPERFORMED BY: LabCo Ymakltjfqr783 [facility]usr[facility] W [id number] BY: =G Lab[facility] Uahimuppsw234 [facility] campusrHelen M[facility] [id number] Information: [id number] HPV automatic (84041) PAPSMR Normal [facility] prehensive Internal Medicine Work Phone: Comment on above: The Pap smear is a s creening test designed to aid in the detection ofpremalignant and malignant conditions of the uterine cervix. It is not adiagnostic procedure and should not be used as the sole means of detectingcervical cancer. Both false-positive and false-negative reports do occur. .This liquid based ThinPrep(R) pap test was screened with theuse of an image guided system. Source.............C ervix;EndocervixNo. of containers..01 CYTYC Thin Prep VialPATIENT NOT FASTINGPERFORMED BY: LabCo Vgxciqsbqo926 [facility] campusrHel[facility] [id number] BY: =G [facility] Ywixovixkt55032 Washington StreetrHelen M. [facility] Hospital [id number] Information: [id number] BUNOrdered By: System Manage r on 03-15-2016 Urea nitrogen mass conc 20 mg/dL Abnormal 7-18 [facility] Medicine Work Phone: Comment on above: [facility] [address] [place], [address] Serum Creatinine AND GFROrde red By: Freelance Data Entry on 03-15-2016 Creatinine mass conc 0.85 mg/dL Normal 0.55-1.20 Comp rehensive Internal Medicine Work Phone: Comment on above: The validity of the calculated GFR AND GFRAA in patients over70 years has not been determined. Clinical correlation isessential. [facility] [address] [place], [address] EST GFR - AA 88 mL/min Normal Comprehensiv e Internal Medicine Work Phone: Comment on above: GFR Calc GFR/1.73 sq M predicted among non-blacks MDRD vol rate/area (S/P/Bld) 73 mL/min/{1.73_m2} Normal Comprehe nsive Internal Medicine Work Phone: Comment on above: Non- GFR Calc [facility] [address] [place], [place], [address] Serum Creatinine AND GFR 88 mL/min Normal [facility] Work Phone: Comment on above: GFR Calc [facility] [address] [place], [place], [address] LIPID PANEL ([id number])Ordered B y: Freelance Data Entry on 01-30-2015 Cholesterol in HDL mass conc 64 mg/dL Normal [facility] Work Phone: Comment on above: According to ATP-III Guidelines, HDL-C >59 mg/dL is considered anegative risk factor for CHD. PATIENT WAS FASTINGP ERFORMED BY: RampedMedia70 [facility] [id number] Information: [id number] Cholesterol in LDL mass conc 98 mg/dL Normal 0-99 [facility] Work Phone: Comment on above: PATIENT WAS FASTINGP ERFORMED BY: Domino6370 [facility] [id number] Information: [id number] Cholesterol in LDL/Cholesterol in HDL mass ratio 1.5 {ratio_units} Normal 0.0-3.2 [facility] Work Phone: Comment on above: LDL/HDL Ratio Men Wo men 1/2 Avg.Risk 1.0 1.5 Avg.Risk 3.6 3.2 2X Avg.Risk 6.2 5.0 3X Avg.Risk 8.0 6.1 PATIENT WAS FASTINGP ERFORMED BY: KIRSTEN [facility] Vcpvgj9121 Abel Roadblin [place] [id number] Information: [id number] Cholesterol in VLDL mass conc 23 mg/dL Normal 5-40 [facility] Work Phone: Comment on above: PATIENT WAS FASTINGP ERFORMED BY: CB [facility] Zanlen6757 Abel RoadDublin [place] [id number] Information: [id number] Cholesterol mass conc 185 mg/dL Normal 100-199 [facility] Internal Medicine Work Phone: Comment on above: PATIENT WAS FASTINGP ERFORMED BY: CB [facility] Uvektw5[address] Roadblin [place] [id number] Information: [id number] Triglyceride mass conc 113 mg/dL Normal 0-149 [facility] Work Phone: Comment on above: PATIENT WAS FASTINGP ERFORMED BY: CB [facility] Roopgy0699 [address] [facility] [place] [id number] Information: [id number] Vitamin D Hydroxy (77563)Ord ered By: Freelance Data Entry on 01-30-2015 25-Hydroxyvitamin D2+25-Hydroxyvitamin D3 mass conc 59.4 ng/mL Normal 30.0-100.0 [facility] Internal Medicine Work Phone: Comment on above: Vitamin D deficiency has been defined by the Dennis ofMedicine and an Endocrine Society practice guideline as alevel of serum 25-OH vitamin D less than 20 ng/mL (1,2).The Endocrine Society went on to further define vitamin Dinsufficiency as a level between 21 and 29 ng/mL (2).1. IOM ([place]ennis of Medicine). 2010. Dietary reference intakes for calcium and D. [place]: The National Academies Press.2. Matilda MF, Cheryl NC, Jonathan JIMÉNEZ, et al. Evaluation, treatment, and prevention of vitamin D deficiency: an Endocrine Society clinical practice guideline. JCEM. 2010; 96(7):1911-30. PATIENT WAS FASTINGP ERFORMED BY: LabMclaren Northern Michigan6370 [facility] [id number] FECAL OCCULT HGB ASSAY- tube s sent home (25201)Ordered By: Wendy Milton on 01-26-2015 Hemoglobin.gastrointe stinal Ql (St) Negative Normal [facility] Work Phone: Hemoglobin.gastrointe stinal Ql (Stl) Negative Normal [facility]; [facility] Work Phone: HPV automatic ([id number])Ordered By: Freelance Data Entry on 01-26-2015 HPV 16+18+31+33+35+39+45+ 51+52+56+58+59+68 DNA Probe+sig amp Ql (Cvx) Negative Normal [facility] Work Phone: Comment on above: This high-risk HPV t est detects thirteen high-risk types(16/18/31/33/35/39/45/51/52/56/58/59/68) without differentiation. . Source.............C ervical;EndocervicalLMP / Prev Treat...UTF=[id number]. of containers..01 CYTYC Thin Prep VialPATIENT NOT FASTINGPERFORMED BY: WB [facility] P[address]ebaocfq[address] [id number] BY: =G [facility] Cxjfigjuss[address] [id number] Information: [id number] HPV 16+18+31+33+35+39+45+ 51+52+56+58+59+68 DNA Probe+sig amp Ql (Cvx) Negative Normal [facility]; [facility] Work Phone: Microscopic observation Other stain Nom (Unsp spec) . Normal Comprehens herminia Internal Medicine Work Phone: Comment on above: Source.............C ervical;EndocervicalLMP / Prev Treat...CQY=[id number]. of containers..01 CYTYC Thin Prep VialPATIENT NOT FASTINGPERFORMED BY: WB [facility] Danielle Holder W [id number] BY: =G [facility] Danielle Holder [place] [id number] Information: [id number] Pathology report final diagnosis Narrative SPRCS Normal [facility] Internal Medicine Work Phone: Comment on above: NEGATIVE FOR INTRAEP ITHELIAL LESION AND MALIGNANCY.Satisfactory for evaluation. Endocervical and/or squamous metaplasticcells (endocervical component) are present.V72.31 ; Routine gynecological examinationSam Mark Community Relations Representative (ASCP) Source.............C ervical;EndocervicalLMP / Prev Treat...FXR=[id number]. of containers..01 CYTYC Thin Prep VialPATIENT NOT FASTINGPERFORMED BY: WB [employer] Afudibhixk789 [place] W [id number] BY: =G LabCoFantastec Wcvtnpfjvb[address] [place] [place] [id number] Information: [id number] HPV automatic (52386) PAPSMR Normal [facility] Internal Medicine Work Phone: Comment on above: The Pap smear is a s creening test designed to aid in the detection ofpremalignant and malignant conditions of the uterine cervix. It is not adiagnostic procedure and should not be used as the sole means of detectingcervical cancer. Both false-positive and false-negative reports do occur. .This liquid based ThinPrep(R) pap test was screened with theuse of an image guided system. Source.............C ervical;EndocervicalLMP / Prev Treat...MAG=[id number]. of containers..01 CYTYC Thin Prep VialPATIENT NOT FASTINGPERFORMED BY: Instapagar120 [place] SaudDavis [facility] Center [id number] BY: =G LabCo[address] Saudcarrier clinic CYRUS [id number] Information: [id number] Urinalysis, Office ([id number])Or dered By: Addis Tamez on 12-23-2013 Bilirubin Ql (U) Negative Normal Comprehe nsive Internal Medicine Work Phone: Glucose Test strip mass conc (U) Negative Normal [facility] Work Phone: Hemoglobin Ql (U) Negative Normal Compreh ensive Internal Medicine Work Phone: Hemoglobin Test strip Ql (U) Negative Normal [facility] Work Phone: Ketones Ql (U) Negative Normal Comprehens herminia Internal Medicine Work Phone: Leukocyte esterase Test strip Ql (U) Small Normal [facility] Work Phone: Nitrite Ql (U) Negative Normal Comprehens herminia Internal Medicine Work Phone: Nitrite Test strip Ql (U) Negative Normal [facility] Work Phone: pH (U) 7 [pH] Normal [facility] Work Phone: pH Test strip (U) 7 [pH] Normal Compreh ensive Internal Medicine Work Phone: Protein Ql (U) Negative Normal Comprehens herminia Internal Medicine Work Phone: Protein Test strip Ql (U) Negative Normal [facility] Work Phone: Specific gravity Relative Density (U) 1.010 1 Normal Comprehensi ve Internal Medicine Work Phone: Urobilinogen mass/time (24H U) Normal Normal [facility] Work Phone: Urinalysis, Office ([id number])on 12-23-2013 Bilirubin Ql (U) Negative Normal Comprehe nsive Internal Medicine; [facility] Work Phone: Glucose Test strip (U) [Mass/Vol] Negative Normal [facility]; [facility] Work Phone: Hemoglobin Ql (U) Negative Normal Compreh ensive Internal Medicine; [facility] Work Phone: Ketones Ql (U) Negative Normal Comprehens herminia Internal Medicine; [facility] Work Phone: Nitrite Ql (U) Negative Normal [facility]; [facility] Work Phone: Protein Ql (U) Negative Normal [facility]; [facility] Work Phone: HOLLIS CULTURE-OTHER ([id number])Ord ered By: Freelance Data Entry on 12-16-2013 Bacteria identified Respiratory culture Nom (Unsp spec) RRF Normal [facility] Work Phone: Comment on above: Routine respiratory benson PATIENT NOT FASTINGP ERFORMED BY: KIRSTEN [employer]sharan PlatforaCrittenton Behavioral Health [id number] Information: SRC:THRT Bacteria identified Respiratory culture Nom (Unsp spec) Final report Normal [facility] Work Phone: Comment on above: PATIENT NOT FASTINGP ERFORMED BY: KIRSTEN [employer] Ooqnia5501ADTELLIGENCECrittenton Behavioral Health [id number] Information: SRC:THRT Rapid Strep Test, Office ([id number] [phone])Ordered By: Pamela Humphrey on 12-16-2013 S. pyogenes Ag EIA Ql (Throat) Negative Normal [facility]; [facility] Work Phone: S. pyogenes Ag IA Ql (Unsp spec) Negative Normal [facility] Work Phone: URINE HOLLIS CULTURE-PIOTR COL C OUNT ([id number])Ordered By: Freelance Data Entry on 11-25-2013 Bacteria identified Cx Nom (U) Alpha streptococcus Normal Comprehensiv e [facility] Work Phone: Comment on above: 50,000-100,000 colon y forming units per mL PATIENT NOT FASTINGP ERFORMED BY: KIRSTEN [employer]rp PlatforaCrittenton Behavioral Health [id number] Information: SRC:UR ADD [id number] Bacteria identified Cx Nom (U) Final report Normal [facility] Work Phone: Comment on above: PATIENT NOT FASTINGP ERFORMED BY: KIRSTEN m2p-labsblin [place] [id number] Information: SRC:UR ADD [id number] Bacteria identified Cx Nom (U) ECV Normal [facility] Work Phone: Comment on above: Escherichia coli, id entified by an automated biochemical system.25,000-50,000 colony forming units per mL PATIENT NOT FASTINGP ERFORMED BY: [facility] Elukls3131 [facility] [id number] Information: SRC:UR ADD [id number] Bacteria identified Cx Nom (U) Citrobacter koseri Normal [facility] Work Phone: Comment on above: Greater than 100,000 colony forming units per mL PATIENT NOT FASTINGP ERFORMED BY: CB [facility] Aerohz6524 [facility] [id number] Information: SRC:JAMES ADD [id number] Other Antibiotic [facility] prehensive Internal Medicine Work Phone: Comment on above: S = Susceptibl e; I = Intermediate; R = Resistant P = Positive; N = Negative MICS are expressed in micrograms per mL Antibiotic RSLT#1 RSLT#2 RSLT#3 RSLT#4Amoxicillin/Clavulanic Acid S SAmpicillin SCefepime S SCeftriaxone S SCefuroxime S SCephalothin S SCiprofloxacin S SErtapenem S SGentamicin S SImipenem S SLevofloxacin S SNitrofurantoin S SPiperacillin R STetracycline S STobramycin S STrimethoprim/Sulfa S S PATIENT NOT FASTINGP ERFORMED BY: [facility] Wkwxjl4186 [facility] [id number] Information: SRC:UR ADD [id number] Urinalysis, Office ([id number])Or dered By: Manju Valerio on 11-25-2013 Bilirubin Ql (U) Negative Normal Comprehe nsive Internal Medicine Work Phone: Bilirubin Ql (U) Negative Normal Comprehe nsive [facility]; [facility] Work Phone: Glucose Test strip (U) [Mass/Vol] Negative Normal [facility]; [facility] Work Phone: Glucose Test strip mass conc (U) Negative Normal [facility] Work Phone: Hemoglobin Ql (U) Negative Normal Compreh ensive [facility] Medicine Work Phone: Hemoglobin Ql (U) Negative Normal Compreh ensive [facility]; [facility] Work Phone: Hemoglobin Test strip Ql (U) Negative Normal [facility] Work Phone: Ketones Ql (U) Negative Normal [facility] Work Phone: Ketones Ql (U) Negative Normal [facility]; [facility] Work Phone: Leukocyte esterase Test strip Ql (U) Moderate Normal [facility] Work Phone: Nitrite Ql (U) Negative Normal [facility] Work Phone: Nitrite Ql (U) Negative Normal [facility]; [facility] Work Phone: Nitrite Test strip Ql (U) Negative Normal [facility] Work Phone: pH (U) 6.5 [pH] Normal [facility] Work Phone: pH Test strip (U) 6.5 [pH] Normal Compreh ensive [facility] Medicine Work Phone: Protein Ql (U) Negative Normal [facility] Work Phone: Protein Ql (U) Negative Normal [facility]; [facility] Work Phone: Protein Test strip Ql (U) Negative Normal [facility] Work Phone: Specific gravity Relative Density (U) 1.025 1 Normal Comprehensi ve Internal Medicine Work Phone: Urobilinogen mass/time (24H U) Normal Normal [facility] Work Phone: URINE HOLLIS CULTURE-IDENTIFICA [place] (77577)Ordered By: Freelance Data Entry on 11-08-2013 Bacteria identified Cx Nom (U) Enterococcus faecalis Normal [facility] Work Phone: Comment on above: Greater than 100,000 colony forming units per mLNote: this isolate is vancomycin-susceptible.This information is provided for epidemiologic purposesonly: vancomycin is not among the antibioticsrecommended for therapy of urinary tract infectionscaused by Enterococcus.For Enterococcus species, cephalosporins, aminoglycosides (except forhigh-level resistance screening), clindamycin, and trimethoprim-sulfamethoxazole are not effective clinically. Fluoroquinolones areused primarily for treating urinary tract infections. (CLSI, R942-R60,2009) PATIENT NOT FASTINGP ERFORMED BY: [employer] [place] [id number] Information: [id number] Bacteria identified Cx Nom (U) Final report Normal [facility] Work Phone: Comment on above: PATIENT NOT FASTINGP ERFORMED BY: [employer] [place] [id number] Information: [id number] Other Antibiotic [facility] Metafor SoftwareMIAM[facility] [employer] [facility] prehensive Internal Medicine Work Phone: Comment on above: S = Susceptibl e; I = Intermediate; R = Resistant P = Positive; N = Negative MICS are expressed in micrograms per mL Antibiotic RSLT#1 RSLT#2 RSLT#3 RSLT#4Ciprofloxacin SLevofloxacin SNitrofurantoin SPenicillin STetracycline RVancomycin S PATIENT NOT FASTINGP ERFORMED BY: [employer]70 [facility] Medical SystemsAtrium Health [id number] Information: [id number] Urinalysis, Office (31370)Or dered By: Rebeca Hameed on 11-08-2013 Bilirubin Ql (U) Negative Normal Comprehe nsive Internal Medicine Work Phone: Bilirubin Ql (U) Negative Normal Comprehe nsive [facility]; [facility] Work Phone: Glucose Test strip (U) [Mass/Vol] Negative Normal [facility]; [facility] Work Phone: Glucose Test strip mass conc (U) Negative Normal [facility] Work Phone: Hemoglobin Ql (U) Negative Normal Compreh ensive Internal Medicine Work Phone: Hemoglobin Ql (U) Negative Normal Compreh ensive [facility]; [facility] Work Phone: Hemoglobin Test strip Ql (U) Negative Normal [facility] Work Phone: Ketones Ql (U) Negative Normal [facility] Work Phone: Ketones Ql (U) Negative Normal [facility]; [facility] Work Phone: Leukocyte esterase Test strip Ql (U) Small Normal [facility] Work Phone: Nitrite Ql (U) Negative Normal [facility] Work Phone: Nitrite Ql (U) Negative Normal [facility]; [facility] Work Phone: Nitrite Test strip Ql (U) Negative Normal [facility] Work Phone: pH (U) 7 [pH] Normal [facility] Work Phone: pH Test strip (U) 7 [pH] Normal Compreh ensive [facility] Medicine Work Phone: Protein Ql (U) Negative Normal [facility] Work Phone: Protein Ql (U) Negative Normal [facility]; [facility] Work Phone: Protein Test strip Ql (U) Negative Normal [facility] Work Phone: Specific gravity Relative Density (U) 1.015 1 Normal Comprehensi ve Internal Medicine Work Phone: Urobilinogen mass/time (24H U) Normal Normal [facility] Work Phone: FECAL OCCULT HGB ASSAY- tube s sent home (42952)Ordered By: Wendy Milton on 09-23-2013 Hemoglobin.gastrointe stinal Ql (St) Positive Normal [facility] Work Phone: Hemoglobin.gastrointe stinal Ql (Stl) Positive Normal [facility]; [facility] Work Phone: HPV automatic (77574)Ordered By: Freelance Data Entry on 09-23-2013 HPV 16+18+31+33+35+39+45+ 51+52+56+58+59+68 DNA Probe+sig amp Ql (Cvx) Negative Normal [facility] Work Phone: Comment on above: This high-risk HPV t est detects thirteen high-risk types(16/18/31/33/35/39/45/51/52/56/58/59/68) without differentiation. . Source.............C ervical;EndocervicalNo. of containers..01 CYTYC Thin Prep VialPATIENT NOT FASTINGPERFORMED BY: [employer]120 Little1rE[employer] W [id number] BY: =G LabTennison Graphics and Fine Arts120 Little1rE[employer] W [id number] Information: [id number] HPV 16+18+31+33+35+39+45+ 51+52+56+58+59+68 DNA Probe+sig amp Ql (Cvx) Negative Normal [facility]; [facility] Work Phone: Microscopic observation Other stain Nom (Unsp spec) . Normal [facility] Work Phone: Comment on above: Source.............C ervical;EndocervicalNo. of containers..01 CYTYC Thin Prep VialPATIENT NOT FASTINGPERFORMED BY: LabTenn[employer]120 [place] True OfficerImmigreat NowDavis [facility] [id number] BY: =G LabTenn[employer]120 [place] M.SetekzaInstrumentLiferleston [place] [id number] Information: [id number] Pathology report final diagnosis Narrative SPRCS Normal [facility] Work Phone: Comment on above: NEGATIVE FOR INTRAEP ITHELIAL LESION AND MALIGNANCY.Satisfactory for evaluation. Endocervical and/or squamous metaplasticcells (endocervical component) are present.V72.31 ; Routine gynecological examinationSunny Fanny Dooley, Community Relations Representative (ASCP) Source.............C ervical;EndocervicalNo. of containers..01 CYTYC Thin Prep VialPATIENT NOT FASTINGPERFORMED BY: DILIA Holder W [id number] BY: =G Aracelis BRIDGES [id number] Information: [id number] HPV automatic (72207) PAPSMR Normal [facility] prehensive Internal Medicine Work Phone: Comment on above: The Pap smear is a s creening test designed to aid in the detection ofpremalignant and malignant conditions of the uterine cervix. It is not adiagnostic procedure and should not be used as the sole means of detectingcervical cancer. Both false-positive and false-negative reports do occur. .This liquid based ThinPrep(R) pap test was screened with theuse of an image guided system. Source.............C ervical;EndocervicalNo. of containers..01 CYTYC Thin Prep VialPATIENT NOT FASTINGPERFORMED BY: CecyCosharan Ponce [id number] BY: =G Aracelis BRIDGES [id number] Information: [id number] LIPID PANEL (80452)Ordered B y: Freelance Data Entry on 09-23-2013 Cholesterol in HDL mass conc 63 mg/dL Normal [facility] Work Phone: Comment on above: According to ATP-III Guidelines, HDL-C >59 mg/dL is considered anegative risk factor for CHD. PATIENT WAS FASTINGP ERFORMED BY: KIRSTEN [employer].sharan MunroeIdimgw1910 [facility] [id number] Cholesterol in LDL mass conc 85 mg/dL Normal 0-99 [facility] Work Phone: Comment on above: PATIENT WAS FASTINGP ERFORMED BY: KIRSTEN RESPACE70 [facility] [id number] Cholesterol in LDL/Cholesterol in HDL mass ratio 1.3 {ratio_units} Normal 0.0-3.2 [facility] Work Phone: Comment on above: PATIENT WAS FASTINGP ERFORMED BY: KIRSTEN Mcnulty Oxyczh7806 [facility] [id number] Cholesterol in VLDL mass conc 16 mg/dL Normal 5-40 [facility] Work Phone: Comment on above: PATIENT WAS FASTINGP ERFORMED BY: [facility]6370 [facility] [id number] Cholesterol mass conc 164 mg/dL Normal 100-199 [facility] prehensive Internal Medicine Work Phone: Comment on above: PATIENT WAS FASTINGP ERFORMED BY: [facility] Wskqsn6020 [facility] [id number] Triglyceride mass conc 78 mg/dL Normal 0-149 [facility] Work Phone: Comment on above: PATIENT WAS FASTINGP ERFORMED BY: [facility]6370 [facility] [id number] METABOLIC PANEL, COMPREHENSI VE (12118)Ordered By: Freelance Data Entry on 09-23-2013 Albumin mass conc 4.2 g/dL Normal 3.5-5.5 Compreh [facility] Work Phone: Comment on above: PATIENT WAS FASTINGP ERFORMED BY: [place] 6447970 [facility] [id number] Information: [id number] Albumin/Globulin mass ratio 1.9 {ratio} Normal 1.1-2.5 [facility] Work Phone: Comment on above: PATIENT WAS FASTINGP ERFORMED BY: [facility]6370 [facility] [id number] Information: [id number] ALP [Catalytic activity/Vol] 61 U/L Normal 39-117 [facility]; [facility] Work Phone: ALP enzyme act/vol 61 [iU]/L Normal 39-117 Compre hensive Internal Medicine Work Phone: Comment on above: PATIENT WAS FASTINGP ERFORMED BY: KIRSTEN [facility] Qkvyld4937 Abel RoadDublin [place] [id number] Information: [id number] ALT [Catalytic activity/Vol] 12 U/L Normal 0-32 [facility]; [facility] Work Phone: ALT enzyme act/vol 12 [iU]/L Normal 0-32 [facility] Work Phone: Comment on above: PATIENT WAS FASTINGP ERFORMED BY: KIRSTEN [facility] Bpnpwv6720 Abel RoadDublin [place] [id number] Information: [id number] AST [Catalytic activity/Vol] 21 U/L Normal 0-40 [facility]; [facility] Work Phone: AST enzyme act/vol 21 [iU]/L Normal 0-40 [facility] Work Phone: Comment on above: PATIENT WAS FASTINGP ERFORMED BY: KIRSTEN [facility] Jnyifq3752 Abel RoadDublin [place] [id number] Information: [id number] Bilirubin mass conc 0.4 mg/dL Normal 0.0-1.[address] [facility] Internal Medicine Work Phone: Comment on above: PATIENT WAS FASTINGP ERFORMED BY: KIRSTEN [facility] Frkiks9221 Abel RoadDublin [place] [id number] Information: [id number] Calcium mass conc 8.9 mg/dL Normal 8.7-10.2 [facility] Internal Medicine Work Phone: Comment on above: PATIENT WAS FASTINGP ERFORMED BY: KIRSTEN [facility] Qhxdza0983 Abel RoadDublin [place] [id number] Information: [id number],[id number] Chloride molar conc 105 mmol/L Normal 97-[address] [facility] Internal Medicine Work Phone: Comment on above: PATIENT WAS FASTINGP ERFORMED BY: KIRSTEN [facility] Ruqvpu4091 Abel RoadDublin [place] [id number] Information: [id number] CO2 molar conc 25 mmol/L Normal 19-28 Comprehens [facility] Work Phone: Comment on above: PATIENT WAS FASTINGP ERFORMED BY: LabCoChrist HospitalPfqezu1288 [facility] [id number] Information: [id number] Creatinine mass conc 0.71 mg/dL Normal 0.57-1.00 Comp rehensive Internal Medicine Work Phone: Comment on above: PATIENT WAS FASTINGP ERFORMED BY: [place] 6447970 [facility] [id number] Information: [id number] GFR/1.73 sq M predicted among blacks CKD-EPI vol rate/area (S/P/Bld) 109 mL/min/1.73 Normal Comprehensiv e Internal Medicine Work Phone: Comment on above: PATIENT WAS FASTINGP ERFORMED BY: [facility]6370 [facility] [id number] Information: [id number],[id number] GFR/1.73 sq M predicted among non-blacks CKD-EPI vol rate/area (S/P/Bld) 94 mL/min/1.73 Normal [facility] Work Phone: Comment on above: PATIENT WAS FASTINGP ERFORMED BY: [facility]6370 [facility] [id number] Information: [id number] Globulin Calculated mass conc (S) 2.2 g/dL Normal 1.5-4.5 [facility] Work Phone: Globulin mass conc (S) 2.2 g/dL Normal 1.5-4.5 [facility] Work Phone: Comment on above: PATIENT WAS FASTINGP ERFORMED BY: [facility] Lxjsmp2211 [facility] [id number] Information: [id number] Glucose mass conc 83 mg/dL Normal 65-99 Compreh ensive Internal Medicine Work Phone: Comment on above: PATIENT WAS FASTINGP ERFORMED BY: KIRSTEN [facility] Vtjjea4238 [address] Minnie [facility] Health Centerblin [place] [id number] Information: [id number] Potassium molar conc 4.2 mmol/L Normal 3.5-5.2 Comp rehensive Internal Medicine Work Phone: Comment on above: PATIENT WAS FASTINGP ERFORMED BY: CB [facility] Aoufad4[address] [facility] [place] [id number] Information: [id number] Protein mass conc 6.4 g/dL Normal 6.0-8.5 Compreh ensive Internal Medicine Work Phone: Comment on above: PATIENT WAS FASTINGP ERFORMED BY: KIRSTEN [facility] Zbxojb6005 [address] [facility]in [place] [id number] Information: [id number] Sodium molar conc 143 mmol/L Normal 134-144 Compreh ensive Internal Medicine Work Phone: Comment on above: PATIENT WAS FASTINGP ERFORMED BY: [facility] Iqsssg8979 [address] [facility]in [place] [id number] Information: [id number] Urea nitrogen mass conc 16 mg/dL Normal 6-24 [facility] Work Phone: Comment on above: PATIENT WAS FASTINGP ERFORMED BY: [facility] Kcajgh3928 [address] [facility]in [place] [id number] Information: [id number] Urea nitrogen/Creatinine mass ratio 23 mg/mg Normal 9-23 [facility] Work Phone: Comment on above: PATIENT WAS FASTINGP ERFORMED BY: [facility] Bzvyal0416 [address] [facility]in [place] [id number] Information: [id number] Vitamin D Hydroxy (29311)Ord ered By: Freelance Data Entry on 09-23-2013 25-Hydroxyvitamin D2+25-Hydroxyvitamin D3 mass conc 50.9 ng/mL Normal 30.0-100.0 [facility] Work Phone: Comment on above: Vitamin D deficiency has been defined by the Dennis ofMedicine and an Endocrine Society practice guideline as alevel of serum 25-OH vitamin D less than 20 ng/mL (1,2).The Endocrine Society went on to further define vitamin Dinsufficiency as a level between 21 and 29 ng/mL (2).1. IOM ([place]ennis of Medicine). 2010. Dietary reference intakes for calcium and D. [place]: The National Academies Press.2. Matilda MF, Cheryl LONDONO, Jonathan JIMÉNEZ, et al. Evaluation, treatment, and prevention of vitamin D deficiency: an Endocrine Society clinical practice guideline. JCEM. 2010; 96(7):1911-30. PATIENT WAS FASTINGP ERFORMED BY: [facility]6370 [facility] [id number] DEXA BONE DENSITY STUDY (HP) Ordered By: Freelance Data Entry on 09-27-2012 DEXA BONE DENSITY STUDY (HP) See Note Normal [facility] Work Phone: Comment on above: PROCEDURE: DUAL ENER GY X-RAY ABSORPTIOMETRY / DXA REASON FOR EXAM: Female, 57 years old. Osteopenia. Patient startinghermenopause now. Patient takes an unknown amount of calcium and does amoderate amount of exercise. TECHNIQUE: Bone Mineral Density (BMD) measurements of lumbar spine andbilateral hips were obtained. COMPARISON: Bone density study dated August 05, 2010. FINDINGS: Lumbar Spine (L1-L4): g/cm2 (0.969) / T-score (-1.8) / Z-score (-0.8) Left Femur Total: g/cm2 (0.904) / T-score (-0.8) / Z-score (zero)Left Femoral Neck: g/cm2 (0.841) / T-score (-1.4) / Z-score (-0.3)Right Femur Total: g/cm2 (0.904) / T-score (-0.8) / Z-score (zero)Right Femoral Neck: g/cm2 (0.847) / T-score (-0.8) / Z-score (zero) The T-Scores on the most recent prior examination were: Lumbar Spine (L1-L4): 0.978 g/cm2 T score is -1.7. Z score is -0.3.Left Femur Total: 0.920 g/cm2 T score is -0.7. Z score is 0.3.Right Femur Total: 0.884 g/cm2. T score is -1. Z score is 0.1. IMPRESSION:The patient is considered osteopenic, as outlined above, according toWorldHealth Organization (WHO) criteria. Fracture risk is moderate. The bonedensity within the femurs has increased since the previous study. Bonedensity within the spine has decreased slightly since the previous study. Reference Information:The T-score is the number of standard deviations above or below thestandard which is normal for young adults at their peak bone mineraldensity. The World Health Organization (WHO) interprets the T-scores asfollows: Above -1 Normal bone densityBetween -1 and -2.5 OsteopeniaEqual to / or below -2.5 Osteoporosis As a practical clinical guideline, osteopenia may be graded as follows:Mild -1 through -1.5Moderate -1.6 through -2.0Severe -2.1 through -2.4 The Z-score is the number of standard deviations above or below age-matchedcontrols. A Z-score of less than -1.5 would be considered abnormal. References:1. NIH Osteoporosis and Related Bone Diseases http://www.osteo.org2. International Society for Clinical Densitometry http://www.iscd.org3. National Osteoporosis Foundation http://www.nof.org Signed:Maya Hernandez M.D.September 27, 2012 at 9:58:03 PM [phone] Signed AM/AM If you are the referring physician and would like to consult with theradiologist who provided this interpretation, please contact Maya Hernandez M.D. at . If this radiologist is unavailable, you will bedirected to another radiologist to assist. If you are a patient with a question regarding this report, pleasecontactyour referring physician directly. Professional Interpretation Provided By: [employer], Phone , These documents contain legally protected and confidential healthinformation intended only for the use of the individual or entity namedabove. If you are not the intended recipient, you are hereby notifiedthatany disclosure, copying, distribution, or other use of these documents isstrictly prohibited. If you have received this information in error,pleasenotify the sender immediately and arrange for the return or destructionofthese documents. Dictated on 09/27/121101 by Lo Hernandez MDaTranscribed on 09/27/122201 by ITS IMPORTSign by Maya Hernandez MD on 09/27/122202 Sign by: Maya Hernandez MD BILCINTIA SCRN DIGITAL & CADOrde red By: Freelance Data Entry on 09-21-2012 BILAT SCRN DIGITAL & CAD See Note Normal [facility] Work Phone: Comment on above: MAMMOGRAPHY - BILATE RAL SCREENING REASON FOR EXAM: Female, 57 years old. Routine annual screeningexamination. PERTINENT HISTORY: Non-contributory. TECHNIQUE: Digital examination. Mediolateral oblique (MLO) andcraniocaudad (CC) views of both breasts were obtained. CAD: CAD wasperformed on this study. COMPARISON: Previous study of 08/05/2010. FINDINGS:The breast composition is heterogeneously dense. There are no dominant masses or suspicious calcifications. No other significant abnormalities are identified. There has been nosignificant change since the prior study. IMPRESSION:Stable bilateral screening mammogram. Yearly follow-up recommended. (A) ASSESSMENT CATEGORY:BIRADS Category 1: Negative. A letter regarding these results will besent to the patient by the facility within 30 days. Approximately 10% of breast cancers are not detected by mammography. Anormal mammogram should not delay biopsy of a clinically suspiciousabnormality. Signed:Alicia Araujo 2011 at 3:40:02 PM [phone] Signed RB/RB If you are the referring physician and would like to consult with theradiologist who provided this interpretation, please contact John Garza at . If this radiologist is unavailable, you will bedirected to another radiologist to assist. If you are a patient with a question regarding this report, pleasecontactyour referring physician directly. Professional Interpretation Provided By: Key, Phone , These documents contain legally protected and confidential healthinformation intended only for the use of the individual or entity namedabove. If you are not the intended recipient, you are hereby notifiedthatany disclosure, copying, distribution, or other use of these documents isstrictly prohibited. If you have received this information in error,pleasenotify the sender immediately and arrange for the return or destructionofthese documents. Dictated on 09/21/12 1352 by Karan Malloy MDTranscribed on 09/24/12 1545 by ITS IMPORTSign by Karan Malloy MD on 09/24/12 1546 Sign by: Karan Malloy MD Thin prep Pap ([id number])Ordered By: Freelance Data Entry on 09-21-2012 Microscopic observation Other stain Nom (Unsp spec) . [facility] Work Phone: Comment on above: Source.............C ervical;EndocervicalNo. of containers..01 CYTYC Thin Prep VialPATIENT NOT FASTINGPERFORMED BY: [employer] [facility] [id number] Information: [id number] Pathology report final diagnosis Narrative [facility] Normal [facility] Work Phone: Comment on above: NEGATIVE FOR INTRAEP ITHELIAL LESION AND MALIGNANCY.Satisfactory for evaluation. Endocervical and/or squamous metaplasticcells (endocervical component) are present.V72.31 ; Routine gynecological examinationNory Fonseca Community Relations Representative (ASCP) Source.............C ervical;EndocervicalNo. of containers..01 CYTYC Thin Prep VialPATIENT NOT FASTINGPERFORMED BY: [employer] [facility] [id number] Information: [id number] Thin prep Pap ([id number]) PAPSMR Normal [facility] Work Phone: Comment on above: The Pap smear is a s creening test designed to aid in the detection ofpremalignant and malignant conditions of the uterine cervix. It is not adiagnostic procedure and should not be used as the sole means of detectingcervical cancer. Both false-positive and false-negative reports do occur. .This liquid based ThinPrep(R) pap test was screened with theuse of an image guided system.The HPV DNA reflex criteria were not met with this specimen resulttherefore, no HPV testing was performed. . Source.............C ervical;EndocervicalNo. of containers..01 CYTYC Thin Prep VialPATIENT NOT FASTINGPERFORMED BY: [facility] [address] [id number] Information: [id number] CALCIFEDIOL ([id number])Ordered B y: Freelance Data Entry on 03-20-2012 25-Hydroxyvitamin D2+25-Hydroxyvitamin D3 mass conc 43.3 ng/mL Normal 30.0-100.0 [facility] Work Phone: Comment on above: Vitamin D deficiency has been defined by the [place] ofMedicine and an Endocrine Society practice guideline as alevel of serum 25-OH vitamin D less than 20 ng/mL (1,2).The Endocrine Society went on to further define vitamin Dinsufficiency as a level between 21 and 29 ng/mL (2).1. IOM ([place] of Medicine). 2010. Dietary reference intakes for calcium and D. [place]: The National Academies Press.2. Matilda MF, Cheryl NC, Yasir-Michel JIMÉNEZ, et al. Evaluation, treatment, and prevention of vitamin D deficiency: an Endocrine Society clinical practice guideline. JCEM. 2010; 96(7):1911-30. PATIENT NOT FASTINGP ERFORMED BY: [facility] [id number] [facility] [id number] Information: [id number] Urinalysis, Office ([id number])Or dered By: Isis Gusman on 02-06-2012 Bilirubin Ql (U) Negative Normal Comprehe nsive Internal Medicine Work Phone: Bilirubin Ql (U) Negative Normal Comprehe nsive Internal Medicine; [facility] Work Phone: Glucose Test strip (U) [Mass/Vol] Negative Normal [facility]; [facility] Work Phone: Glucose Test strip mass conc (U) Negative Normal [facility] Work Phone: Hemoglobin Ql (U) Negative Normal Compreh ensive Internal Medicine Work Phone: Hemoglobin Ql (U) Negative Normal Compreh ensive Internal Medicine; [facility] Work Phone: Hemoglobin Test strip Ql (U) Negative Normal [facility] Work Phone: Ketones Ql (U) Small Normal Comprehens [facility] Internal Medicine Work Phone: Leukocyte esterase Test strip Ql (U) Negative Normal [facility] Work Phone: Leukocyte esterase Test strip Ql (U) Negative Normal [facility]; [facility] Work Phone: Nitrite Ql (U) Negative Normal Comprehens [facility] Work Phone: Nitrite Ql (U) Negative Normal Comprehens [facility]; [facility] Work Phone: Nitrite Test strip Ql (U) Negative Normal [facility] Work Phone: pH (U) 7.0 [pH] Normal [facility] Work Phone: pH Test strip (U) 7.0 [pH] Normal Compreh ensive Internal Medicine Work Phone: Protein Ql (U) Trace Normal Comprehens [facility] Internal Medicine Work Phone: Protein Test strip Ql (U) Trace Normal [facility] Work Phone: Specific gravity Relative Density (U) 1.020 1 Normal Comprehensi ve Internal Medicine Work Phone: Urobilinogen mass/time (24H U) Normal Normal [facility] Work Phone: URINE HOLLIS CULTURE-IDENTIFICA TN ([id number])Ordered By: Freelance Data Entry on 01-06-2012 Bacteria identified Cx Nom (U) Enterococcus faecalis Normal Comprehens [facility] Internal Medicine Work Phone: Comment on above: 10,000-25,000 colony forming units per mLNote: this isolate is vancomycin-susceptible.This information is provided for epidemiologic purposesonly: vancomycin is not among the antibioticsrecommended for therapy of urinary tract infectionscaused by Enterococcus.For Enterococcus species, cephalosporins, aminoglycosides (except forhigh-level resistance screening), clindamycin, and trimethoprim-sulfamethoxazole are not effective clinically. Fluoroquinolones areused primarily for treating urinary tract infections. (CLSI, T505-O04,2009) PERFORMED BY: [employer]6370 [facility] [id number] Bacteria identified Cx Nom (U) Final report Normal [facility] Work Phone: Comment on above: PERFORMED BY: [employer]70 [facility] [id number] Bacteria identified Cx Nom (U) MUG Normal [facility] Work Phone: Comment on above: Mixed urogenital juana ra10,000-25,000 colony forming units per mL S = Susceptible; I = Intermediate; R = Resistant P = Positive; N = Negative MICS are expressed in micrograms per mL Antibiotic RSLT#1 RSLT#2 RSLT#3 RSLT#4Ciprofloxacin SLevofloxacin SNitrofurantoin SPenicillin STetracycline RVancomycin S PERFORMED BY: [employer]6370 [facility] [id number] Urinalysis, Office (44709)Or dered By: Gini Hernandez on 01-06-2012 Bilirubin Ql (U) Negative Normal Comprehe nsive Internal Medicine Work Phone: Bilirubin Ql (U) Negative Normal Comprehe nsive Internal [facility]; [facility] Work Phone: Glucose Test strip (U) [Mass/Vol] Negative Normal [facility]; [facility] Work Phone: Glucose Test strip mass conc (U) Negative Normal [facility] Work Phone: Hemoglobin Ql (U) Hemolyzed Trace Normal Co mprehensive Internal Medicine Work Phone: Hemoglobin Test strip Ql (U) Hemolyzed Trace Normal [facility] Work Phone: Ketones Ql (U) Negative Normal Comprehens [facility] Internal Medicine Work Phone: Ketones Ql (U) Negative Normal Comprehens [facility]; [facility] Work Phone: Leukocyte esterase Test strip Ql (U) Trace Normal [facility] Work Phone: Nitrite Ql (U) Negative Normal Comprehens [facility] Work Phone: Nitrite Ql (U) Negative Normal Comprehens [facility]; [facility] Work Phone: Nitrite Test strip Ql (U) Negative Normal [facility] Work Phone: pH (U) 6.0 [pH] Normal [facility] Work Phone: pH Test strip (U) 6.0 [pH] Normal Compreh ensive Internal Medicine Work Phone: Protein Ql (U) Negative Normal Comprehens [facility] Work Phone: Protein Ql (U) Negative Normal Comprehens [facility]; [facility] Work Phone: Protein Test strip Ql (U) Negative Normal [facility] Work Phone: Specific gravity Relative Density (U) 1.025 1 Normal Comprehensi ve Internal Medicine Work Phone: Urobilinogen mass/time (24H U) Normal Normal [facility] Work Phone: URINE HOLLIS CULTURE-PIOTR COL C OUNT ([id number])Ordered By: Freelance Data Entry on 12-03-2010 Bacteria identified Cx Nom (U) ECV Normal [facility] Work Phone: Comment on above: Escherichia coli, id entified by an automated biochemical system.100 Colonies/mL .Mixed urogenital [id number] Colonies/mL S = Susceptible; I = Intermediate; R = Resistant P = Positive; N = Negative MICS are expressed in micrograms per mL Antibiotic RSLT#1 RSLT#2 RSLT#3 RSLT#4Amikacin SAmoxicillin/Clavulanic Acid RAmpicillin RCefazolin RCefepime SCefoxitin RCeftriaxone SCiprofloxacin SESBL NErtapenem SGentamicin SImipenem SLevofloxacin SNitrofurantoin STobramycin STrimethoprim/Sulfa S PATIENT NOT FASTINGP ERFORMED BY: [employer] [facility] [id number] [address] [facility] [facility]Du[facility] [id number] Information: SRC:UR [id number] Bacteria identified Cx Nom (U) Final report Normal [facility] Work Phone: Comment on above: PATIENT NOT FASTINGP ERFORMED BY: [employer] [id number] Abel [facility] [id number] Information: SRC:UR [id number] Urinalysis, Office ([id number])Or dered By: Wendy Milton on 12-03-2010 Bilirubin Ql (U) Negative Normal Comprehe nsive Internal Medicine Work Phone: Bilirubin Ql (U) Negative Normal Comprehe nsive Internal Medicine; [facility] Work Phone: Glucose Test strip (U) [Mass/Vol] Negative Normal [facility]; [facility] Work Phone: Glucose Test strip mass conc (U) Negative Normal [facility] Work Phone: Hemoglobin Ql (U) Hemolyzed Small Normal Co mprehensive Internal Medicine Work Phone: Hemoglobin Test strip Ql (U) Hemolyzed Small Normal [facility] Work Phone: Ketones Ql (U) Negative Normal Comprehens [facility] Work Phone: Ketones Ql (U) Negative Normal Comprehens [facility]; [facility] Work Phone: Leukocyte esterase Test strip Ql (U) Negative Normal [facility] Work Phone: Leukocyte esterase Test strip Ql (U) Negative Normal [facility]; [facility] Work Phone: Nitrite Ql (U) Negative Normal Comprehens [facility] Work Phone: Nitrite Ql (U) Negative Normal Comprehens [facility]; [facility] Work Phone: Nitrite Test strip Ql (U) Negative Normal [facility] Work Phone: pH (U) 7.0 [pH] Normal [facility] Work Phone: pH Test strip (U) 7.0 [pH] Normal Compreh ensive Internal Medicine Work Phone: Protein Ql (U) Negative Normal Comprehens [facility] Work Phone: Protein Ql (U) Negative Normal Comprehens [facility]; [facility] Work Phone: Protein Test strip Ql (U) Negative Normal [facility] Work Phone: Specific gravity Relative Density (U) 1.010 1 Normal Comprehensi ve Internal Medicine Work Phone: Urobilinogen mass/time (24H U) Normal Normal [facility] Work Phone: URINE HOLLIS CULTURE-PIOTR COL C OUNT ([id number])Ordered By: Freelance Data Entry on 11-15-2010 Bacteria identified Cx Nom (U) Escherichia coli Normal [facility] Work Phone: Comment on above: 1,000 Colonies/mL PATIENT NOT FASTINGP ERFORMED BY: KIRSTEN [employer]6370 [facility] [id number] Information: SRC:UR [id number] Bacteria identified Cx Nom (U) Final report Normal [facility] Work Phone: Comment on above: PATIENT NOT FASTINGP ERFORMED BY: KIRSTEN [employer] [id number] [facility] [id number] Information: SRC:UR [id number] Other Antibiotic [facility] [facility]MI[facility] [employer] [facility] prehensive Internal Medicine Work Phone: Comment on above: S = Susceptibl e; I = Intermediate; R = Resistant P = Positive; N = Negative MICS are expressed in micrograms per mL Antibiotic RSLT#1 RSLT#2 RSLT#3 RSLT#4Amikacin SAmoxicillin/Clavulanic Acid RAmpicillin RCefazolin RCefepime SCefoxitin RCeftriaxone SCiprofloxacin SESBL NErtapenem SGentamicin SImipenem SLevofloxacin SNitrofurantoin STobramycin STrimethoprim/Sulfa S PATIENT NOT FASTINGP ERFORMED BY: CB [facility] Xveebt0990 Abel RoadDublin [place] [id number] Information: SRC:UR [id number] Urinalysis, Office ([id number])Or dered By: Manju Valerio on 11-15-2010 Bilirubin Ql (U) Negative Normal Comprehe nsive Internal Medicine Work Phone: Comment on above: nrmal Bilirubin Ql (U) Negative Normal Comprehe nsive Internal Medicine; [facility] Work Phone: Glucose Test strip (U) [Mass/Vol] Negative Normal [facility]; [facility] Work Phone: Glucose Test strip mass conc (U) Negative Normal [facility] Work Phone: Comment on above: nrmal Hemoglobin Ql (U) Negative Normal Compreh ensive Internal Medicine Work Phone: Comment on above: nrmal Hemoglobin Ql (U) Negative Normal Compreh ensive Internal Medicine; [facility] Work Phone: Hemoglobin Test strip Ql (U) Negative Normal [facility] Work Phone: Ketones Ql (U) Negative Normal Comprehens [facility] Work Phone: Comment on above: nrmal Ketones Ql (U) Negative Normal Comprehens [facility]; [facility] Work Phone: Leukocyte esterase Test strip Ql (U) Negative Normal [facility] Work Phone: Comment on above: nrmal Leukocyte esterase Test strip Ql (U) Negative Normal [facility]; [facility] Work Phone: Nitrite Ql (U) Negative Normal Comprehens [facility] Work Phone: Comment on above: nrmal Nitrite Ql (U) Negative Normal Comprehens [facility]; [facility] Work Phone: Nitrite Test strip Ql (U) Negative Normal [facility] Work Phone: pH (U) 7.0 [pH] Normal [facility] Work Phone: Comment on above: nrmal pH Test strip (U) 7.0 [pH] Normal Compreh ensive Internal Medicine Work Phone: Protein Ql (U) Negative Normal Comprehens [facility] Work Phone: Comment on above: nrmal Protein Ql (U) Negative Normal Comprehens [facility]; [facility] Work Phone: Protein Test strip Ql (U) Negative Normal [facility] Work Phone: Specific gravity Relative Density (U) 1.020 1 Normal Comprehensi ve Internal Medicine Work Phone: Comment on above: nrmal Urobilinogen mass/time (24H U) Normal Normal [facility] Work Phone: Comment on above: nrmal URINE HOLLIS CULTURE-IDENTIFICA TN ([id number])Ordered By: Freelance Data Entry on 10-13-2010 Bacteria identified Cx Nom (U) Enterococcus faecalis Normal Comprehens [facility] Internal Medicine Work Phone: Comment on above: 4,000 Colonies/mLNot e: this isolate is vancomycin-susceptible.This information is provided for epidemiologic purposesonly: vancomycin is not among the antibioticsrecommended for therapy of urinary tract infectionscaused by Enterococcus.For Enterococcus species, cephalosporins, aminoglycosides (except forhigh-level resistance screening), clindamycin, and trimethoprim-sulfamethoxazole are not effective clinically. Fluoroquinolones areused primarily for treating urinary tract infections. (CLSI, [id number],2009) PATIENT NOT FASTINGP ERFORMED BY: KIRSTEN [employer]7895 Page [facility] [id number] Information: [id number] Bacteria identified Cx Nom (U) Final report Normal [facility] Work Phone: Comment on above: PATIENT NOT FASTINGP ERFORMED BY: KIRSTEN [employer] [facility] [id number] Information: [id number] Bacteria identified Cx Nom (U) ECV Normal [facility] Work Phone: Comment on above: Escherichia coli, id entified by an automated biochemical system.5,000 Colonies/mL PATIENT NOT FASTINGP ERFORMED BY: [facility]6370 [facility] [id number] Information: [id number] Other Antibiotic [facility] prehensive Internal Medicine Work Phone: Comment on above: S = Susceptibl e; I = Intermediate; R = Resistant P = Positive; N = Negative MICS are expressed in micrograms per mL Antibiotic RSLT#1 RSLT#2 RSLT#3 RSLT#4Amikacin SAmoxicillin/Clavulanic Acid RAmpicillin RCefazolin RCefepime SCefoxitin RCeftriaxone SCiprofloxacin S SESBL NErtapenem SGentamicin SImipenem SLevofloxacin S SNitrofurantoin S SPenicillin STobramycin STrimethoprim/Sulfa SVancomycin S PATIENT NOT FASTINGP ERFORMED BY: [facility]6370 [facility] [id number] Information: [id number] Urinalysis, Office (10623)Or dered By: Gini Hernandez on 10-13-2010 Bilirubin Ql (U) Negative Normal Comprehe nsive Internal Medicine Work Phone: Bilirubin Ql (U) Negative Normal Comprehe nsive Internal Medicine; [facility] Work Phone: Glucose Test strip (U) [Mass/Vol] Negative Normal [facility]; [facility] Work Phone: Glucose Test strip mass conc (U) Negative Normal [facility] Work Phone: Hemoglobin Ql (U) Negative Normal Compreh ensive Internal Medicine Work Phone: Hemoglobin Ql (U) Negative Normal Compreh ensive Internal Medicine; [facility] Work Phone: Hemoglobin Test strip Ql (U) Negative Normal [facility] Work Phone: Ketones Ql (U) Small Normal Comprehens [facility] Work Phone: Leukocyte esterase Test strip Ql (U) Negative Normal [facility] Work Phone: Leukocyte esterase Test strip Ql (U) Negative Normal [facility]; [facility] Work Phone: Nitrite Ql (U) Negative Normal Comprehens [facility] Work Phone: Nitrite Ql (U) Negative Normal Comprehens [facility]; [facility] Work Phone: Nitrite Test strip Ql (U) Negative Normal [facility] Work Phone: pH (U) 8.5 [pH] Normal [facility] Work Phone: pH Test strip (U) 8.5 [pH] Normal Compreh ensive Internal Medicine Work Phone: Protein Ql (U) 30 mg/dL Normal Comprehens [facility] Work Phone: Protein Test strip Ql (U) 30 mg/dL Normal [facility] Work Phone: Specific gravity Relative Density (U) 1.015 1 Normal Comprehensi ve Internal Medicine Work Phone: Urobilinogen mass/time (24H U) Normal Normal [facility] Work Phone: URINE HOLLIS CULTURE-PIOTR COL C OUNT ([id number])Ordered By: Freelance Data Entry on 09-23-2010 Bacteria identified Cx Nom (U) Escherichia coli Normal [facility] Work Phone: Comment on above: Greater than 100,000 colony forming units per mL PATIENT NOT FASTINGP ERFORMED BY: [facility] [id number] [facility] [id number] Information: SRC:UR [id number] Bacteria identified Cx Nom (U) Final report Normal [facility] Work Phone: Comment on above: PATIENT NOT FASTINGP ERFORMED BY: [facility] [id number] [facility] [id number] Information: SRC:UR [id number] Other Antibiotic susc [employer] [facility] prehensive Internal Medicine Work Phone: Comment on above: S = Susceptibl e; I = Intermediate; R = Resistant P = Positive; N = Negative MICS are expressed in micrograms per mL Antibiotic RSLT#1 RSLT#2 RSLT#3 RSLT#4Amikacin SAmoxicillin/Clavulanic Acid SAmpicillin SCefazolin SCefepime SCefoxitin SCeftriaxone SCiprofloxacin SESBL NErtapenem SGentamicin SImipenem SLevofloxacin SNitrofurantoin STobramycin STrimethoprim/Sulfa S PATIENT NOT FASTINGP ERFORMED BY: CB [facility] [id number] Abel RoadDublNorton Suburban Hospital [id number] Information: SRC:JAMES [id number] Urinalysis, Office (13330)Or dered By: Gini Hernandez on 09-23-2010 Bilirubin Ql (U) Negative Normal Comprehe nsive Internal Medicine Work Phone: Bilirubin Ql (U) Negative Normal Comprehe nsive Internal Medicine; [facility] Work Phone: Glucose Test strip (U) [Mass/Vol] Negative Normal [facility]; [facility] Work Phone: Glucose Test strip mass conc (U) Negative Normal [facility] Work Phone: Hemoglobin Ql (U) Hemolyzed Moderate Normal [facility] Work Phone: Hemoglobin Test strip Ql (U) Hemolyzed Moderate Normal [facility] Work Phone: Ketones Ql (U) Negative Normal Comprehens [facility] Work Phone: Ketones Ql (U) Negative Normal Comprehens [facility]; [facility] Work Phone: Leukocyte esterase Test strip Ql (U) Large Normal [facility] Work Phone: Nitrite Ql (U) Negative Normal Comprehens [facility] Work Phone: Nitrite Ql (U) Negative Normal Comprehens [facility]; [facility] Work Phone: Nitrite Test strip Ql (U) Negative Normal [facility] Work Phone: pH (U) 7.0 [pH] Normal [facility] Work Phone: pH Test strip (U) 7.0 [pH] Normal Compreh ensive Internal Medicine Work Phone: Protein Ql (U) Negative Normal Comprehens [facility] Work Phone: Protein Ql (U) Negative Normal Comprehens [facility]; [facility] Work Phone: Protein Test strip Ql (U) Negative Normal [facility] Work Phone: Specific gravity Relative Density (U) 1.015 1 Normal Comprehensi ve Internal Medicine Work Phone: Urobilinogen mass/time (24H U) Normal Normal [facility] Work Phone: BILAT SCRN DIGITAL & CADOrde red By: Freelance Data Entry on 08-05-2010 BILAT SCRN DIGITAL & CAD See Note Normal [facility] Work Phone: Comment on above: Exam Number: [id number] AMMOGRAPHY - BILATERAL SCREENING INDICATION:Routine annual screening examination. PERTINENT HISTORY:Non-contributory. TECHNIQUE:Digital examination. Mediolateral oblique (MLO) and craniocaudad (CC) views of both breasts were obtained. CAD was performed on this study. COMPARISON:September 22, 2009, August 27, 2008 FINDINGS:The breast composition is heterogeneously dense. There are no masses or suspicious microcalcifications. No other significant abnormalities are identified. IMPRESSION:Normal bilateral screening mammogram. Yearly follow-up recommended. ASSESSMENT CATEGORY:Category 2: Benign finding(s) Approximately 10% of breast cancers are not detected by mammography. A normal mammogram should not delay biopsy of a clinically suspicious abnormality.This addendum is being created for the purpose of attaching a ResultCode to this exam. ADDENDUM: [id number] HPBI/MDS Reported By: NORMAN CHICAS Exam Number: [id number] LINICAL:55-year-old woman who is still having monthly menses. Intermittent use of Actonel. Moderate to high amount of exercise. Patient has MS. EXAMINATION:DUAL ENERGY X-RAY ABSORPTIOMETRY / DEXA. TECHNIQUE:Bone Density Measurements (BMD) of lumbar spine and bilateral hips were obtained using a Ubersnap scanner.. COMPARISON:Numerous comparisons available. The most recent is dated 27 August 2008. FINDINGS: Lumbar Spine (L1-L4): g/cm2 (0.978) / T-score (-1.7) / Z-score (-0.3)Left Femur Total: g/cm2 (0.920) / T-score (-0.7) / Z-score (0.3)Right Femur Total: g/cm2 (0.884) / T-score (-1.0) / Z-score (0.1) Additional Abnormal T-Scores: None. The T-Scores on the most recent examination were: Lumbar Spine (L1-L4): Increased by 3.5 %.Left Femur Total: Decreased by 3.1 %.Right Femur Total: No baseline comparison IMPRESSION:Osteopenia. Moderate fracture risk. Reference Information:The T-score is the number of standard deviations above or below the standard which is normal for young adults at their peak bone mineral density. The World Health Organization (WHO) interprets the T-scores as follows: Above -1 Normal bone densityBetween -1 and -2.5 OsteopeniaEqual to / or below -2.5 Osteoporosis As a practical clinical guideline, osteopenia may be graded as follows:Mild -1 through -1.5Moderate -1.6 through -2.0Severe -2.1 through -2.4 The Z-score is the number of standard deviations above or below age-matched controls. A Z-score of less than -1.5 would be considered abnormal. References:1. NIH Osteoporosis and Related Bone Diseases http://www.osteo.org2. International Society for Clinical Densitometry http://www.iscd.org3. National Osteoporosis Foundation http://www.nof.org Reported By: JATIN LUU M.D. Thin prep Pap ([id number])Ordered By: Freelance Data Entry on 07-21-2010 Microscopic observation Other stain Nom (Unsp spec) . Normal [facility] Work Phone: Comment on above: Source.............C ervical;EndocervicalNo. of containers..01 CYTYC Thin Prep VialPERFORMED BY: PageFair[address] [id number] Information: [id number] Pathology report final diagnosis Narrative [facility] Normal [facility] Work Phone: Comment on above: NEGATIVE FOR INTRAEP ITHELIAL LESION AND MALIGNANCY.Satisfactory for evaluation. Endocervical and/or squamous metaplasticcells (endocervical component) are present.V72.31 ; Routine gynecological examinationCynthichloé Ulloa Community Relations Representative (ASCP) Source.............C ervical;EndocervicalNo. of containers..01 CYTYC Thin Prep VialPERFORMED BY: PinkUP[address] [id number] Information: [id number] Thin prep Pap ([id number]) [facility] Work Phone: Comment on above: The Pap smear is a s creening test designed to aid in the detection ofpremalignant and malignant conditions of the uterine cervix. It is not adiagnostic procedure and should not be used as the sole means of detectingcervical cancer. Both false-positive and false-negative reports do occur. .The HPV DNA reflex criteria were not met with this specimen resulttherefore, no HPV testing was performed. . Source.............C ervical;EndocervicalNo. of containers..01 CYTYC Thin Prep VialPERFORMED BY: PinkUP[address] [id number] Information: [id number] BILAT SCRN DIGITAL & CADOrde red By: Freelance Data Entry on 09-22-2009 BILAT SCRN DIGITAL & CAD See Note Normal [facility] Internal Medicine Work Phone: Comment on above: Exam Number: [id number] DIGITAL BILATERAL MAMMOGRAM Digital oblique and craniocaudal views were obtained. Comparison ismade with the prior examination dated August 27, 2008.Interpretation was made with the benefit of the CAD system. HISTORYThis is a 54-year-old female patient with a history of routinescreening. FINDINGSThere is a moderate amount of fibroglandular tissue. No dominantmass lesion is seen. No cluster of microcalcification is present. The overlying skin is not thickened. There has been no change sinceprior examination. IMPRESSION1. There has been no change since prior examination.2. Routine annual mammographic followup is suggested.3. Negative. BIRADS Category 1. A letter regarding the results has been sent to the patient. This interpretation was rendered by a radiologist certified under theMammography Quality Standards Act of 1992 (MQSA). The mammograms werealso examined with computer-aided detection software (TriCipher, [employer].). Reported By: ANTOINE HOLBROOK LQDPAP [id number] By: Cj louie Account Executive Sales Representative on 08-25-2009 LQDPAP [id number] SeeNote [facility] Work Phone: Comment on above: Result: Negative Thi s high-risk HPV test detects thirteen high-risk types(16/18/31/33/35/39/45/51/52/56/58/59/68) withoutdifferentiation. .Performed At: [facility] [address], [place] [id number] At: [facility] [address] [facility], [place] [id number] LQDPAP [id number] Comment Normal [facility] Work Phone: Comment on above: The Pap smear is a s creening test designed to aid in thedetection of premalignant and malignant conditions of theuterine cervix. It is not a diagnostic procedure andshould not be used as the sole means of detecting cervicalcancer. Both false-positive and false-negative reports dooccur. . Satisfactory for donna luation. Endocervical and/or squamous metaplasticcells (endocervical component) are present. This liquid based Th inPrep(R) pap test was screened withthe use of an image guided system. NEGATIVE FOR INTRAEP ITHELIAL LESION AND MALIGNANCY. Arvind Luog, [facility] otechnologist (ASCP) LQDPAP [id number] . Normal Comprehen sive Internal Medicine Work Phone: PELVIC (NON-PREG) (HP)Gabriela d By: Freelance Data Entry on 02-06-2009 PELVIC (NON-PREG) (HP) See Note Normal [facility] Work Phone: Comment on above: Exam Number: [id number] PELVIC ULTRASOUND Pelvic ultrasound and duplex arterial flow, limited. HISTORYThe patient is a 53-year-old woman with a history of right lowerquadrant pain. The technologist's note indicates the patient stillhas regular menstrual periods. Both transabdominal and transvaginal studies were performed. Theuterus is upper normal measuring 11 x 3.8 x 5 cm. The endometriummeasures 8-mm which is within normal limits for a premenopausalpatient. There is a small nabothian cyst present. There is also atiny fibroid within the uterus. The fibroid measures 5 x 5 x 7 mm. The right ovary was seen on the abdominal study measuring 2.4 x 2 x1.7 cm. Right ovary was not seen on the transvaginal examination. Left ovary was seen on both studies measuring 3.7 x 1.8 x 2.3 cm. Onthe transvaginal study, there are small hypodensities within the leftovary. These measure approximately 5-mm in size and may representnormal follicles. IMPRESSION1) There is a 7-mm fibroid in the uterus. 2) There are small hypodensities in the left ovary which mayrepresent normal follicles. Followup ultrasound in 3 months issuggested.3) Right ovary is seen on transabdominal study only and is normal. Reported By: LIVIA GALVAN M.D. Exam Number: [id number] PELVIC ULTRASOUND Pelvic ultrasound and duplex arterial flow, limited. HISTORYThe patient is a 53-year-old woman with a history of right lowerquadrant pain. The technologist's note indicates the patient stillhas regular menstrual periods. Both transabdominal and transvaginal studies were performed. Theuterus is upper normal measuring 11 x 3.8 x 5 cm. The endometriummeasures 8-mm which is within normal limits for a premenopausalpatient. There is a small nabothian cyst present. There is also atiny fibroid within the uterus. The fibroid measures 5 x 5 x 7 mm. The right ovary was seen on the abdominal study measuring 2.4 x 2 x1.7 cm. Right ovary was not seen on the transvaginal examination. Left ovary was seen on both studies measuring 3.7 x 1.8 x 2.3 cm. Onthe transvaginal study, there are small hypodensities within the leftovary. These measure approximately 5-mm in size and may representnormal follicles. IMPRESSION1) There is a 7-mm fibroid in the uterus. 2) There are small hypodensities in the left ovary which mayrepresent normal follicles. Followup ultrasound in 3 months issuggested.3) Right ovary is seen on transabdominal study only and is normal. Reported By: LIVIA GALVAN M.D. Exam Number: [id number] PELVIC ULTRASOUND Pelvic ultrasound and duplex arterial flow, limited. HISTORYThe patient is a 53-year-old woman with a history of right lowerquadrant pain. The technologist's note indicates the patient stillhas regular menstrual periods. Both transabdominal and transvaginal studies were performed. Theuterus is upper normal measuring 11 x 3.8 x 5 cm. The endometriummeasures 8-mm which is within normal limits for a premenopausalpatient. There is a small nabothian cyst present. There is also atiny fibroid within the uterus. The fibroid measures 5 x 5 x 7 mm. The right ovary was seen on the abdominal study measuring 2.4 x 2 x1.7 cm. Right ovary was not seen on the transvaginal examination. Left ovary was seen on both studies measuring 3.7 x 1.8 x 2.3 cm. Onthe transvaginal study, there are small hypodensities within the leftovary. These measure approximately 5-mm in size and may representnormal follicles. IMPRESSION1) There is a 7-mm fibroid in the uterus. 2) There are small hypodensities in the left ovary which mayrepresent normal follicles. Followup ultrasound in 3 months issuggested.3) Right ovary is seen on transabdominal study only and is normal. Reported By: LIVIA GALVAN M.D. Urinalysis, Office ([id number])Or dered By: Flor Villagomez on 02-04-2009 Bilirubin Ql (U) Negative Normal Compre[facility] Work Phone: Comment on above: done BC Bilirubin Ql (U) Negative Normal Compre[facility] nsive [facility]; [facility] Work Phone: Glucose Test strip (U) [Mass/Vol] Negative Normal [facility]; [facility] Work Phone: Glucose Test strip mass conc (U) Negative Normal [facility] Work Phone: Comment on above: done BC Hemoglobin Ql (U) Negative Normal Compreh ensive [facility] Work Phone: Comment on above: done BC Hemoglobin Ql (U) Negative Normal Compre[facility] ensive [facility]; [facility] Work Phone: Hemoglobin Test strip Ql (U) Negative Normal [facility] Work Phone: Ketones Ql (U) Small Normal [facility]prehens [facility] Work Phone: Comment on above: done BC Leukocyte esterase Test strip Ql (U) Negative Normal [facility] Work Phone: Comment on above: done BC Leukocyte esterase Test strip Ql (U) Negative Normal [facility]; [facility] Work Phone: Nitrite Ql (U) Negative Normal [facility] Work Phone: Comment on above: done BC Nitrite Ql (U) Negative Normal [facility]; [facility] Work Phone: Nitrite Test strip Ql (U) Negative Normal [facility] Work Phone: pH (U) 7.5 [pH] Normal [facility] Work Phone: Comment on above: done BC pH Test strip (U) 7.5 [pH] Normal Compre[facility] ens[facility] Work Phone: Protein Ql (U) Negative Normal [facility] Work Phone: Comment on above: done BC Protein Ql (U) Negative Normal [facility]; [facility] Work Phone: Protein Test strip Ql (U) Negative Normal [facility] Work Phone: Specific gravity Relative Density (U) 1.010 1 Normal Comprehensi ve Internal Medicine Work Phone: Comment on above: done BC Urobilinogen mass/time (24H U) Normal Normal [facility] Work Phone: Comment on above: done BC VIT D,25 [id number] By: Sy stem Account Executive Sales Representative on 02-04-2009 VIT D,25 25631 32.9 ng/mL Normal 32.0-100.0 Comprehens [facility] Work Phone: Comment on above: Recent studies consi pam the lower limit of 32.0 ng/mL to elizabeth threshold for optimal health.Levi BELCHER. J Nutr. 2004;135(2):317-22.Performed At: [facility] [place], [place] [id number] Urinalysis, Office ([id number])Or dered By: Lovely Moreno on 10-21-2008 Bilirubin Ql (U) Negative Normal Compre[facility] ns[facility] Work Phone: Bilirubin Ql (U) Negative Normal Compre[facility] ns[facility]; [facility] Work Phone: Glucose Test strip (U) [Mass/Vol] Negative Normal [facility]; [facility] Work Phone: Glucose Test strip mass conc (U) Negative Normal [facility] Work Phone: Hemoglobin Ql (U) Negative Normal Compre[facility] ens[facility] Work Phone: Hemoglobin Ql (U) Negative Normal Compre[facility]; [facility] Work Phone: Hemoglobin Test strip Ql (U) Negative Normal [facility] Work Phone: Ketones Ql (U) Negative Normal [facility] Work Phone: Ketones Ql (U) Negative Normal [facility]; [facility] Work Phone: Leukocyte esterase Test strip Ql (U) Negative Normal [facility] Work Phone: Comment on above: aw Leukocyte esterase Test strip Ql (U) Negative Normal [facility]; [facility] Work Phone: Nitrite Ql (U) Negative Normal [facility] Work Phone: Nitrite Ql (U) Negative Normal [facility]prehens [facility]; [facility] Work Phone: Nitrite Test strip Ql (U) Negative Normal [facility] Work Phone: pH (U) 7.5 [pH] Normal [facility] Work Phone: pH Test strip (U) 7.5 [pH] Normal Compreh ensive [facility] Work Phone: Protein Ql (U) Trace Normal [facility] Work Phone: Protein Test strip Ql (U) Trace Normal [facility] Work Phone: Specific gravity Relative Density (U) 1.010 1 Normal Comprehensi ve [facility] Work Phone: Urobilinogen mass/time (24H U) Normal Normal [facility] Work Phone: DEXA BONE DENSITY STUDY (HP) Ordered By: Freelance Data Entry on 08-27-2008 DEXA BONE DENSITY STUDY (HP) See Note Normal [facility] Work Phone: Comment on above: Exam Number: [id number] BONE DENSITOMETRY HISTORYOsteopenia. TECHNIQUE Bone densitometry of the lumbar spine and left hip was performed. Thebest criteria for evaluation of osteoporosis is the T-value, whichrepresents the comparison of the patient's bone mass to an expectedpeak bone mass. For most patients, the mean T-value of L1 through L4is used to evaluate the lumbar spine. Based on the newest WorldHealth Organization classifications, the hip is evaluated by utilizingthe lower of the T-value of the total hip or the T-value of thefemoral neck. FINDINGSIn this patient, the mean T-value of L1 through L4 is -2 which is inthe range of osteopenia. Bone mineral density is measured at 4.6%greater than in 2001 and 1.3% greater than in 2006. Digital lateralview for evaluation of vertebral deformity only demonstrates noobvious compression fractures. The T-value of the left femoral neckis -1.3 which is in the range of osteopenia. The T-value of thetotal hip is -0.7 which is normal. Bone mineral density is measuredat 3.9% less than in 2001, and 3% less than in 2006. IMPRESSIONThere is osteopenia of the lumbar spine and left hip. Reported By: LIVIA GALVAN M.D. Exam Number: [id number] MAMMOGRAM, BILATERAL SCREENING DIGITAL AND CAD HISTORYRoutine screening. Full field digital images were obtained in mediolateral oblique andcraniocaudal projections. CAD images were reviewed. The current study is compared to the examinations of September 2004,August 2006, and December 2006. There is moderately dense fibroglandular parenchyma present. There isno skin thickening or retraction, architectural distortion, or clusterof suspicious microcalcifications. There are areas of asymmetricparenchymal density which have not significantly changed from thestudy of September 28, 2004. If there is no suspicious palpableabnormality, followup mammogram in 1 year is recommended. IMPRESSIONThere is no radiographic evidence of malignancy identified. FINAL ASSESSMENTBenign findings. BIRADS Category 2. A letter regarding these results has been sent to the patient. This interpretation was rendered by a radiologist certified under theMammography Quality Standards Act of 1992 (MQSA). The mammograms werealso examined with computer-aided detection software (ImageLittle1, [employer] Reported By: LIVIA GALVAN M.D. LQD PAP [id number] By: stem Account Executive Sales Representative on 08-20-2008 LQD PAP [id number] Comment Normal Com[facility] Work Phone: Comment on above: Arvind Lugo, [facility] otechnologist (ASCP) Satisfactory for donna luation. Endocervical and/or squamous metaplasticcells (endocervical component) are present. NEGATIVE FOR INTRAEP ITHELIAL LESION AND MALIGNANCY.CELLULAR CHANGES ASSOCIATED WITH INFLAMMATION ARE PRESENT. The HPV DNA reflex c hayden were not met with this specimenresult therefore, no HPV testing was performed. .Performed At: [address] [id number] The Pap smear is a s creening test designed to aid in thedetection of premalignant and malignant conditions of theuterine cervix. It is not a diagnostic procedure andshould not be used as the sole means of detecting cervicalcancer. Both false-positive and false-negative reports dooccur. . CYTOLOGY INFORMATION :- CLINICAL INFORMATION: - DATE LMP/MENOPAUSE: MENOPAUSE- COLLECTION VIAL: Thin Prep Vial- BLOW DOWN HELPER SOURCE: CERVICAL/ENDOCERVICAL- COLLECTION TECHNIQUE: BRUSH/SPATULA LQD PAP [id number] . Normal [facility] Work Phone: Comment on above: CYTOLOGY INFORMATION :- CLINICAL INFORMATION: - DATE LMP/MENOPAUSE: MENOPAUSE- COLLECTION VIAL: Thin Prep Vial- BLOW DOWN HELPER SOURCE: CERVICAL/ENDOCERVICAL- COLLECTION TECHNIQUE: BRUSH/SPATULA Urinalysis, Office ([id number])Or dered By: Wendy Milton on 03-12-2007 Bilirubin Ql (U) Negative Normal Compre[facility] Work Phone: Comment on above: done-jjp Bilirubin Ql (U) Negative Normal Compre[facility] nsive [facility]; [facility] Work Phone: Glucose Test strip (U) [Mass/Vol] Negative Normal [facility]; [facility] Work Phone: Glucose Test strip mass conc (U) Negative Normal [facility] Work Phone: Comment on above: done-jjp Hemoglobin Ql (U) Negative Normal Compreh ensive [facility] Medicine Work Phone: Comment on above: done-jjp Hemoglobin Ql (U) Negative Normal Compreh ensive [facility]; [facility] Work Phone: Hemoglobin Test strip Ql (U) Negative Normal [facility] Work Phone: Ketones Ql (U) Negative Normal [facility] Work Phone: Comment on above: done-jjp Ketones Ql (U) Negative Normal [facility]; [facility] Work Phone: Leukocyte esterase Test strip Ql (U) Negative Normal [facility] Work Phone: Comment on above: done-jjp Leukocyte esterase Test strip Ql (U) Negative Normal [facility]; [facility] Work Phone: Nitrite Ql (U) Negative Normal [facility] Work Phone: Comment on above: done-jjp Nitrite Ql (U) Negative Normal [facility]prehens [facility]; [facility] Work Phone: Nitrite Test strip Ql (U) Negative Normal [facility] Work Phone: pH (U) 6.0 [pH] Normal [facility] Work Phone: Comment on above: done-jjp pH Test strip (U) 6.0 [pH] Normal Compre[facility] ensive [facility] Medicine Work Phone: Protein Ql (U) Negative Normal Comprehens [facility] Work Phone: Comment on above: done-jjp Protein Ql (U) Negative Normal Comprehens [facility]; [facility] Work Phone: Protein Test strip Ql (U) Negative Normal [facility] Work Phone: Specific gravity Relative Density (U) 1.005 1 Normal Comprehen[facility] ve [facility] Work Phone: Comment on above: done-jjp Urobilinogen mass/time (24H U) Normal Normal [facility] Work Phone: Comment on above: done-jjp Urinalysis, Office ([id number])Or dered By: Ammy Ortiz on 02-07-2007 Bilirubin Ql (U) Negative Normal Compre[facility] Work Phone: Bilirubin Ql (U) Negative Normal Comprehe nsive [facility]; [facility] Work Phone: Glucose Test strip (U) [Mass/Vol] Negative Normal [facility]; [facility] Work Phone: Glucose Test strip mass conc (U) Negative Normal [facility] Work Phone: Hemoglobin Ql (U) Hemolyzed Large Normal Co mprehensive [facility] Work Phone: Hemoglobin Test strip Ql (U) Hemolyzed Large Normal [facility] Work Phone: Ketones Ql (U) Negative Normal [facility]prehens [facility] Work Phone: Ketones Ql (U) Negative Normal Comprehens [facility]; [facility] Work Phone: Leukocyte esterase Test strip Ql (U) Large Normal [facility] Work Phone: Nitrite Ql (U) Negative Normal Comprehens [facility] Work Phone: Nitrite Ql (U) Negative Normal Comprehens [facility]; [facility] Work Phone: Nitrite Test strip Ql (U) Negative Normal [facility] Work Phone: pH (U) 6.5 [pH] Normal [facility] Work Phone: pH Test strip (U) 6.5 [pH] Normal Compreh ensive [facility] Medicine Work Phone: Protein Ql (U) Trace Normal Comprehens [facility] Work Phone: Protein Test strip Ql (U) Trace Normal [facility] Work Phone: Specific gravity Relative Density (U) 1.015 1 Normal Comprehensi ve Internal Medicine Work Phone: Urobilinogen mass/time (24H U) Normal Normal [facility] Work Phone: LIPIDOrdered By: Brian friedman on 01-30-2007 Cholesterol in HDL mass conc 47 mg/dL Normal [facility] Work Phone: Comment on above: Reference Range HDL <40 mg/dL Low HDL Cholesterol HDL >or= 60 mg/dL High HDL Cholesterol Cholesterol in LDL mass conc 81 mg/dL Normal 0-130 [facility] Work Phone: Cholesterol in VLDL mass conc 22 mg/dL Normal 5-40 [facility] Work Phone: Cholesterol mass conc 150 mg/dL Normal Com prehensive Internal Medicine Work Phone: Comment on above: <200 mg/dL Desirable 200-240 mg/dL Borderline >240 mg/dL High Risk Triglyceride mass conc 110 mg/dL Normal [facility] Work Phone: Comment on above: Serum Triglycerides Reference Interval Normal <150 mg/dL Borderline high 150 - 199 mg/dL High 200 - 499 mg/dL Very High > or = 500 mg/dL MAMM, BILAT SCRN DIGITAL & C ADOrdered By: Freelance Data Entry on 01-09-2007 MAMM, BILAT SCRN DIGITAL & CAD See Note Normal [facility] Work Phone: Comment on above: Exam Number: [id number] MAMMOGRAPHY, BILATERAL SCREENING DIGITAL AND CAD HISTORYRoutine screening. COMPARISONFull field digital images were obtained in mediolateral oblique andcraniocaudal projections. CAD images were reviewed. COMPARISONThe current study is compared to previous examinations including themost recent previous studies of 09/04 and 10/07. FINDINGSThere is moderately dense fibroglandular parenchyma present. There isno skin thickening or retraction, architectural distortion, or clusterof suspicious microcalcifications. There are scattered calcificationspresent. There are multiple asymmetric densities present on bothsides. These densities are not new. The areas of asymmetry can beseen on the examination of . If there is no suspicious palpableabnormality, followup mammogram in one year is recommended. IMPRESSIONThere is no radiographic evidence of malignancy identified. FINAL ASSESSMENTBenign findings. BIRADS Category 2. A letter regarding these results has been sent to the patient. This interpretation was rendered by a radiologist certified under theMammography Quality Standards Act of 1992 (MQSA). The mammograms werealso examined with computer-aided detection software ([employer], [employer] Reported By: LIVIA GALVAN M.D. CBCDOrdered By: System Manag er on 12-25-2006 Basophils/100 WBC (Bld) 0.7 % Normal 0-1 [facility] Work Phone: Basophils/100 WBC Auto (Bld) 0.7 % Normal 0-1 [facility] Work Phone: Eosinophils/100 WBC (Bld) 3.6 % Normal 0-5 [facility] Work Phone: Eosinophils/100 WBC Auto (Bld) 3.6 % Normal 0-5 [facility] Work Phone: Erythrocyte distribution width Auto Ratio (RBC) 13.4 % Normal 11.6-14.6 [facility] Work Phone: Erythrocyte distribution width Ratio (RBC) 13.4 % Normal 11.6-14.6 [facility] Work Phone: Hematocrit Auto Volume Fraction (Bld) 36.6 % Abnormal 37-47 Comprehens [facility] Work Phone: Hematocrit Volume Fraction (Bld) 36.6 % Abnormal 37-47 [facility] Work Phone: Hemoglobin mass conc (Bld) 12.5 g/dL Normal 12.0-16.0 [facility] Work Phone: Lymphocytes/100 WBC (Bld) 31.6 % Normal 19-41 [facility] Work Phone: Lymphocytes/100 WBC Auto (Bld) 31.6 % Normal 19-41 [facility] Work Phone: MCH Auto Entitic mass (RBC) 30.3 pg Normal 27.0-32.0 [facility] Work Phone: MCH Entitic mass (RBC) 30.3 pg Normal 27.0-32.0 [facility] Work Phone: MCHC Auto mass conc (RBC) 34.1 g/dL Normal 32-36 [facility] Work Phone: MCHC mass conc (RBC) 34.1 g/dL Normal 32-36 Comp rehensive [facility] Work Phone: MCV Auto Entitic volume (RBC) 88.9 fL Normal 81-99 [facility] Work Phone: MCV Entitic volume (RBC) 88.9 fL Normal 81-99 [facility] Work Phone: Monocytes/100 WBC (Bld) 10.3 % Abnormal 0-10 [facility] Work Phone: Monocytes/100 WBC Auto (Bld) 10.3 % Abnormal 0-10 [facility] Work Phone: Neutrophils/100 WBC (Bld) 53.8 % Normal 47-70 [facility] Work Phone: Neutrophils/100 WBC Auto (Bld) 53.8 % Normal 47-70 [facility] Work Phone: Platelet mean volume Auto Entitic volume (Bld) 6.7 fL Normal 6.5-12.0 [facility] Work Phone: Platelet mean volume Entitic volume (Bld) 6.7 fL Normal 6.5-12.0 Comprehensi ve [facility] Medicine Work Phone: Platelets #/vol (Bld) 518 10*3/uL Abnormal 150-450 Co [facility] Work Phone: Platelets Auto #/vol (Bld) 518 10*3/uL Abnormal 150-450 [facility] Work Phone: RBC #/vol (Bld) 4.12 {M/mm3} Abnormal 4.2-5.4 Compreh ensive [facility] Work Phone: RBC Auto #/vol (Bld) 4.12 {M/mm3} Abnormal 4.2-5.[address] [facility] Work [facility]: WBC #/vol (Bld) 5.8 10*3/uL Normal 4.4-11.0 Comprehe nsive [facility] Work Phone: WBC Auto #/vol (Bld) 5.8 10*3/uL Normal 4.4-11.0 [facility] Work Phone: LIVEROrdered By: System Lakeisha elder on 12-25-2006 Albumin mass conc 3.4 g/dL Normal 3.4-5.0 Compreh ensive [facility] Work Phone: ALP enzyme act/vol 61 U/L Normal 50-136 [facility] Work [facility]: ALT enzyme act/vol 36 [iU]/L Normal 30-65 Compre [facility] Work Phone: AST enzyme act/vol 28 U/L Normal 15-37 Compre [facility] Work Phone: Bilirubin mass conc 0.35 mg/dL Normal 0.00-1.00 Compr ensive [facility] Work Phone: Bilirubin.direct mass conc 0.08 mg/dL Normal 0.00-0.30 [facility] Work Phone: Protein mass conc 6.6 g/dL Normal 6.4-8.2 Compreh ensive [facility] Work Phone: FECAL WBCOrdered By: Freelance Data Entry on 11-28-2006 FECAL WBC See Note Normal [facility] Work Phone: Comment on above: FECAL WBCs NONE SEEN No Salmonella, Shige lla, E. coli 0157:H7, Yersinia orCampylobacter isolated. No significant amount ofStaphylococcus aureus or yeast-like organisms isolated. C. DIFF TOXINS A&B N EGATIVE OCCULT BLOOD NEGATIV E Vital Signs Date Time Vital Sign Value Performing Clinician Facility 03-25-2025 08:19-0400 Body height 149.[address] Meghna Gregory DO Work Phone: [facility] 03-25-2025 08:09-0400 Body mass index (BMI) [Ratio] 19.2 kg/m2 Dr. Meghna Gregory DO Work Phone: [facility] 03-25-2025 08:09-0400 Body weight 43.[address] Meghna Gregory DO Work Phone: [facility] 03-25-2025 08:09-0400 Diastolic blood pressure 68 mm[Hg] Dr. Meghna Gregory DO Work Phone: [facility] 03-25-2025 08:09-0400 Systolic blood pressure 112 mm[Hg] Dr. Meghna Gregory DO Work Phone: [facility] 01-26-2024 08:06-0400 Body height 149.[address] Meghna Gregory Work Phone: [facility] 01-26-2024 08:06-0400 Body mass index (BMI) [Ratio] 19.8 kg/m2 Dr. Meghna Gregory Work Phone: [facility] 01-26-2024 08:06-0400 Body temperature 96 [degF] Dr. Meghna Gregory Work Phone: [facility] 01-26-2024 08:06-0400 Body weight 44.[address] Meghna Gregory Work Phone: [facility] 01-26-2024 08:06-0400 Diastolic blood pressure 51 mm[Hg] Dr. Meghna Gregory Work Phone: [facility] 01-26-2024 08:06-0400 Heart rate 86 /min Dr. Meghna Gregory Work Phone: [facility] 01-26-2024 08:06-0400 Respiratory rate 16 /min Dr. Meghna Gregory Work Phone: [facility] 01-26-2024 08:06-0400 SaO2% (BldA) [Mass fraction] 97 % Dr. Meghna Gregory Work Phone: [facility] 01-26-2024 08:06-0400 Systolic blood pressure 94 mm[Hg] Dr. Meghna Gregory Work Phone: [facility] 01-12-2024 09:45-0400 Body temperature 97.5 [degF] Dr. Meghna Gregory Work Phone: [facility] 01-12-2024 09:45-0400 Diastolic blood pressure 58 mm[Hg] Dr. Meghna Gregory Work Phone: [facility] 01-12-2024 09:45-0400 Heart rate 74 /min Dr. Meghna Gregory Work Phone: [facility] 01-12-2024 09:45-0400 Respiratory rate 16 /min Dr. Meghna Gregory Work Phone: [facility] 01-12-2024 09:45-0400 SaO2% (BldA) [Mass fraction] 100 % Dr. Meghna Gregory Work Phone: [facility] 01-12-2024 09:45-0400 Systolic blood pressure 100 mm[Hg] Dr. Meghna Gregory Work Phone: [facility] 01-12-2024 08:41-0400 Body height 149.[address] Meghna Gregory Work Phone: [facility] 01-12-2024 08:41-0400 Body mass index (BMI) [Ratio] 19.3 kg/m2 Dr. Meghna Gregory Work Phone: [facility] 01-12-2024 08:41-0400 Body weight 43.[address] Meghna Gregory Work Phone: [facility] 01-11-2024 09:01-0400 Body temperature 97.6 [degF] Dr. Meghna Gregory Work Phone: [facility] 01-11-2024 09:01-0400 Diastolic blood pressure 72 mm[Hg] Dr. Meghna Gregory Work Phone: [facility] 01-11-2024 09:01-0400 Heart rate 97 /min Dr. Meghna Gregory Work Phone: [facility] 01-11-2024 09:01-0400 Respiratory rate 12 /min Dr. Meghna Gregory Work Phone: [facility] 01-11-2024 09:01-0400 SaO2% (BldA) [Mass fraction] 97 % Dr. Meghna Gregory Work Phone: [facility] 01-11-2024 09:01-0400 Systolic blood pressure 110 mm[Hg] Dr. Meghna Gregory Work Phone: [facility] 11-15-2023 11:33-0500 Body mass index (BMI) [Ratio] 19.8 kg/m2 Dr. Meghna Gregory Work Phone: [facility] 11-15-2023 11:33-0500 Body weight 44.[address] Meghna Gregory Work Phone: [facility] 08-16-2023 16:18-0500 Diastolic blood pressure 80 mm[Hg] [facility] 08-16-2023 16:18-0500 Heart rate 70 /min [facility] 08-16-2023 16:18-0500 Respiratory rate 18 /min [facility] 08-16-2023 16:18-0500 Systolic blood pressure 106 mm[Hg] [facility] 08-16-2023 12:09-0500 Body height 149.86 cm [facility] 08-16-2023 12:09-0500 Body mass index (BMI) [Ratio] 20.7 kg/m2 [facility] 08-16-2023 12:09-0500 Body temperature 96.2 [degF] [facility] 08-16-2023 12:09-0500 Body weight 46.49 kg [facility] 08-16-2023 12:09-0500 SaO2% (BldA) [Mass fraction] 99 % [facility] 08-15-2023 07:38-0500 Body mass index (BMI) [Ratio] 19.8 kg/m2 [facility] 08-15-2023 07:38-0500 Body weight 44.58 kg [facility] 08-15-2023 07:36-0500 Body height 149.86 cm [facility] 08-15-2023 07:36-0500 Body temperature 97.8 [degF] [facility] 08-15-2023 07:36-0500 Diastolic blood pressure 53 mm[Hg] [facility] 08-15-2023 07:36-0500 Heart rate 88 /min [facility] 08-15-2023 07:36-0500 Respiratory rate 18 /min [facility] 08-15-2023 07:36-0500 SaO2% (BldA) [Mass fraction] 99 % [facility] 08-15-2023 07:36-0500 Systolic blood pressure 110 mm[Hg] [facility] 07-31-2023 07:59-0400 Body height 149.86 cm [facility] 07-31-2023 07:59-0400 Body mass index (BMI) [Ratio] 19.8 kg/m2 [facility] 07-31-2023 07:59-0400 Body temperature 97.2 [degF] [facility] 07-31-2023 07:59-0400 Body weight 44.45 kg [facility] 07-31-2023 07:59-0400 Diastolic blood pressure 62 mm[Hg] [facility] 07-31-2023 07:59-0400 Heart rate 85 /min [facility] 07-31-2023 07:59-0400 Respiratory rate 16 /min [facility] 07-31-2023 07:59-0400 SaO2% (BldA) [Mass fraction] 98 % [facility] 07-31-2023 07:59-0400 Systolic blood pressure 105 mm[Hg] [facility] 04-28-2023 10:38-0400 Body height 149.86 cm [facility]; [facility] Work Phone: 04-28-2023 10:38-0400 Body mass index (BMI) [Ratio] 19.82 kg/m2 [facility]; [facility] Work Phone: 04-28-2023 10:38-0400 Body surface area Derived from formula 1.36 m2 [facility]; [facility] Work Phone: 04-28-2023 10:38-0400 Body temperature 95 [degF] [facility]; [facility] Work Phone: 04-28-2023 10:38-0400 Body weight 44.51 kg [facility]; [facility] Work Phone: 04-28-2023 10:38-0400 Diastolic blood pressure 60 mm[Hg] [facility]; [facility] Work Phone: 04-28-2023 10:38-0400 Heart rate 82 /min [facility]; [facility] Work Phone: 04-28-2023 10:38-0400 Respiratory rate 18 /min [facility]; [facility] Work Phone: 04-28-2023 10:38-0400 SaO2% (BldA) [Mass fraction] 98 % [facility]; [facility] Work Phone: 04-28-2023 10:38-0400 Systolic blood pressure 100 mm[Hg] [facility]; [facility] Work Phone: 03-30-2023 09:34-0400 Body height 149.[address] Meghna Gregory Work Phone: [facility] 03-30-2023 09:34-0400 Body mass index (BMI) [Ratio] 19.8 kg/m2 Dr. Meghna Gregory Work Phone: [facility] 03-30-2023 09:34-0400 Body temperature 96.2 [degF] Dr. Meghna Gregory Work Phone: [facility] 03-30-2023 09:34-0400 Body weight 44.[address] Meghna Gregory Work Phone: [facility] 03-30-2023 09:34-0400 Diastolic blood pressure 68 mm[Hg] Dr. Meghna Gregory Work Phone: [facility] 03-30-2023 09:34-0400 Heart rate 80 /min Dr. Meghna Gregory Work Phone: [facility] 03-30-2023 09:34-0400 Respiratory rate 16 /min Dr. Meghna Gregory Work Phone: [facility] 03-30-2023 09:34-0400 SaO2% (BldA) [Mass fraction] 95 % Dr. Meghna Gregory Work Phone: [facility] 03-30-2023 09:34-0400 Systolic blood pressure 95 mm[Hg] Dr. Meghna Gregory Work Phone: [facility] 03-13-2023 14:26-0400 Body height 149.[address] Meghna Gregory Work Phone: [facility] 03-13-2023 14:20-0400 Body mass index (BMI) [Ratio] 20.4 kg/m2 Dr. Meghna Gregory Work Phone: [facility] 03-13-2023 14:20-0400 Body weight 45.[address] Meghna Gregory Work Phone: [facility] 03-13-2023 14:20-0400 Diastolic blood pressure 64 mm[Hg] Dr. Meghna Gregory Work Phone: [facility] 03-13-2023 14:20-0400 Systolic blood pressure 116 mm[Hg] Dr. Meghna Gregory Work Phone: [facility] 01-23-2023 14:25-0400 Diastolic blood pressure 55 mm[Hg] Dr. Meghna Gregory Work Phone: [facility] 01-23-2023 14:25-0400 Heart rate 92 /min Dr. Meghna Gregory Work Phone: [facility] 01-23-2023 14:25-0400 Systolic blood pressure 103 mm[Hg] Dr. Meghna Gregory Work Phone: [facility] 01-23-2023 08:11-0400 Body height 149.[address] Meghna Gregory Work Phone: [facility] 01-23-2023 08:11-0400 Body mass index (BMI) [Ratio] 19.9 kg/m2 Dr. Meghna Gregory Work Phone: [facility] 01-23-2023 08:11-0400 Body temperature 97.1 [degF] Dr. Meghna Gregory Work Phone: [facility] 01-23-2023 08:11-0400 Body weight 44.[address] Meghna Gregory Work Phone: [facility] 01-23-2023 08:11-0400 Respiratory rate 16 /min Dr. Meghna Gregory Work Phone: [facility] 01-23-2023 08:11-0400 SaO2% (BldA) [Mass fraction] 99 % Dr. Meghna Gregory Work Phone: [facility] 12-22-2022 13:55-0400 [facility] Work Phone: 12-22-2022 13:55-0400 Body mass index (BMI) [Ratio] 19.47 kg/m2 [facility]; [facility] Work Phone: 12-22-2022 13:55-0400 Body surface area Derived from formula 1.35 [facility]; [facility] Work Phone: 12-22-2022 13:55-0400 Body temperature 97.6 [degF] [facility]; [facility] Work Phone: 12-22-2022 13:55-0400 Body weight 43.73 kg [facility]; [facility] Work Phone: 12-22-2022 13:55-0400 Diastolic blood pressure 82 mm[Hg] michael [facility]; [facility] Work Phone: 12-22-2022 13:55-0400 Heart rate 98 /min [facility]; [facility] Work Phone: 12-22-2022 13:55-0400 Respiratory rate 16 /min [facility]; [facility] Work Phone: 12-22-2022 13:55-0400 SaO2% (BldA) [Mass fraction] 98 % [facility]; [facility] Work Phone: 12-22-2022 13:55-0400 Systolic blood pressure 120 mm[Hg] [facility]; [facility] Work Phone: 11-30-2022 10:32-0500 Body height 149.86 cm [facility]; [facility] Work Phone: 11-30-2022 10:32-0500 Body mass index (BMI) [Ratio] 19.47 kg/m2 [facility]; [facility] Work Phone: 11-30-2022 10:32-0500 Body surface area Derived from formula 1.35 m2 [facility]; [facility] Work Phone: 11-30-2022 10:32-0500 Body temperature 98.4 [degF] [facility]; [facility] Work Phone: 11-30-2022 10:32-0500 Body weight 43.73 kg [facility]; [facility] Work Phone: 11-30-2022 10:32-0500 Diastolic blood pressure 80 mm[Hg] [facility]; [facility] Work Phone: 11-30-2022 10:32-0500 Heart rate 88 /min [facility]; [facility] Work Phone: 11-30-2022 10:32-0500 Respiratory rate 16 /min [facility]; [facility] Work Phone: 11-30-2022 10:32-0500 SaO2% (BldA) [Mass fraction] 98 % [facility]; [facility] Work Phone: 11-30-2022 10:32-0500 Systolic blood pressure 120 mm[Hg] [facility]; [facility] Work Phone: 11-27-2022 11:26-0500 Body temperature 98.2 [degF] Dr. Meghna Gregory Work Phone: [facility] 11-27-2022 11:26-0500 Diastolic blood pressure 60 mm[Hg] Dr. Meghna Gregory Work Phone: [facility] 11-27-2022 11:26-0500 Heart rate 101 /min Dr. Meghna Gregory Work Phone: [facility] 11-27-2022 11:26-0500 Respiratory rate 14 /min Dr. Meghna Gregory Work Phone: [facility] 11-27-2022 11:26-0500 SaO2% (BldA) [Mass fraction] 98 % Dr. Meghna Gregory Work Phone: [facility] 11-27-2022 11:26-0500 Systolic blood pressure 110 mm[Hg] Dr. Meghna Gregory Work Phone: [facility] 11-23-2022 09:00-0500 Body mass index (BMI) [Ratio] 26.6 kg/m2 [facility] 11-23-2022 09:00-0500 Body weight 59.87 kg [facility] 11-23-2022 07:57-0500 Body height 149.86 cm [facility] 11-23-2022 07:57-0500 Body temperature 97.2 [degF] [facility] 11-23-2022 07:57-0500 Diastolic blood pressure 39 mm[Hg] [facility] 11-23-2022 07:57-0500 Heart rate 89 /min [facility] 11-23-2022 07:57-0500 Respiratory rate 16 /min [facility] 11-23-2022 07:57-0500 SaO2% (BldA) [Mass fraction] 100 % [facility] 11-23-2022 07:57-0500 Systolic blood pressure 118 mm[Hg] [facility] 07-15-2022 14:33-0400 Body temperature 98.2 [degF] Dr. Meghna Gregory Work Phone: [facility] Work Phone: 07-15-2022 14:33-0400 Diastolic blood pressure 51 mm[Hg] Dr. Meghna Gregory Work Phone: [facility] Work Phone: 07-15-2022 14:33-0400 Heart rate 87 /min Dr. Meghna Gregory Work Phone: [facility] Work Phone: 07-15-2022 14:33-0400 SaO2% (BldA) [Mass fraction] 96 % Dr. Meghna Gregory Work Phone: [facility] Work Phone: 07-15-2022 14:33-0400 Systolic blood pressure 92 mm[Hg] Dr. Meghna Gregory Work Phone: [facility] Work Phone: 07-15-2022 08:26-0400 Body height 148.[address] Meghna Gregory Work Phone: [facility] Work Phone: 07-15-2022 08:26-0400 Body mass index (BMI) [Ratio] 20.1 kg/m2 Dr. Meghna Gregory Work Phone: [facility] Work Phone: 07-15-2022 08:26-0400 Body weight 44.[address] Meghna Gregory Work Phone: [facility] Work Phone: 07-15-2022 08:26-0400 Respiratory rate 16 /min Dr. Meghna Gregory Work Phone: [facility] Work Phone: 03-23-2022 13:46-0400 Body height 148.[address] Meghna Gregory Work Phone: [facility] Work Phone: 03-23-2022 13:46-0400 Body mass index (BMI) [Ratio] 20.1 kg/m2 Dr. Meghna Gregory Work Phone: [facility] Work Phone: 03-23-2022 13:46-0400 Body weight 44.[address] Meghna Gregory Work Phone: [facility] Work Phone: 03-23-2022 13:46-0400 Diastolic blood pressure 71 mm[Hg] Dr. Meghna Gregory Work Phone: [facility] Work Phone: 03-23-2022 13:46-0400 Respiratory rate 16 /min Dr. Meghna Gregory Work Phone: [facility] Work Phone: 03-23-2022 13:46-0400 Systolic blood pressure 104 mm[Hg] Dr. Meghna Gregory Work Phone: [facility] Work Phone: 03-07-2022 10:49-0400 Body mass index (BMI) [Ratio] 19.8 kg/m2 Dr. Meghna Gregory Work Phone: [facility] Work Phone: 03-07-2022 10:49-0400 Body weight 43.[address] Meghna Gregory Work Phone: [facility] Work Phone: 03-07-2022 10:49-0400 Diastolic blood pressure 70 mm[Hg] Dr. Meghna Gregory Work Phone: [facility] Work Phone: 03-07-2022 10:49-0400 Systolic blood pressure 104 mm[Hg] Dr. Meghna Gregory Work Phone: [facility] Work Phone: 03-07-2022 10:49-0400 Body height 148.[address] Meghna Gregory Work Phone: [facility] Work Phone: 02-25-2022 07:31-0400 Body height 149.86 cm Calixto Roman LPN [facility]; [facility] Work Phone: 02-25-2022 07:31-0400 Body mass index (BMI) [Ratio] 19.47 kg/m2 Calixto Roman LPN [facility]; [facility] Work Phone: 02-25-2022 07:31-0400 Body surface area Derived from formula 1.35 m2 Calixto Roman LPN [facility]; [facility] Work Phone: 02-25-2022 07:31-0400 Body weight 43.73 kg Calixto Roman LPN [facility]; [facility] Work Phone: 02-25-2022 07:31-0400 Diastolic blood pressure 62 mm[Hg] Calixto Roman LPN [facility]; [facility] Work Phone: 02-25-2022 07:31-0400 Heart rate 65 /min Calixto Roman LPN [facility]; [facility] Work Phone: 02-25-2022 07:31-0400 Respiratory rate 16 /min Calixto Roman LPN [facility]; [facility] Work Phone: 02-25-2022 07:31-0400 SaO2% (BldA) [Mass fraction] 96 % Calixto Roman LPN [facility]; [facility] Work Phone: 02-25-2022 07:31-0400 Systolic blood pressure 90 mm[Hg] Calixto Roman LPN [facility]; [facility] Work Phone: 12-31-2021 14:24-0400 Body temperature 98 [degF] Dr. Meghna Gregory Work Phone: [facility] Work Phone: 12-31-2021 14:24-0400 Diastolic blood pressure 46 mm[Hg] Dr. Meghna Gregory Work Phone: [facility] Work Phone: 12-31-2021 14:24-0400 Heart rate 94 /min Dr. eMghna Gregory Work Phone: [facility] Work Phone: 12-31-2021 14:24-0400 Respiratory rate 16 /min Dr. Meghna Gregory Work Phone: [facility] Work Phone: 12-31-2021 14:24-0400 SaO2% (BldA) [Mass fraction] 98 % Dr. Meghna Gregory Work Phone: [facility] Work Phone: 12-31-2021 14:24-0400 Systolic blood pressure 105 mm[Hg] Dr. Meghna Gregory Work Phone: [facility] Work Phone: 12-31-2021 08:28-0400 Body height 148.[address] Meghna Gregory Work Phone: [facility] Work Phone: 12-31-2021 08:28-0400 Body mass index (BMI) [Ratio] 19.9 kg/m2 Dr. Meghna Gregory Work Phone: [facility] Work Phone: 12-31-2021 08:28-0400 Body weight 43.[address] Meghna Gregory Work Phone: [facility] Work Phone: 11-18-2020 08:51-0500 BMI (Body Mass Index) 20.2 kg/m2 Lamar Schmidt [employer]ISION MECH[employer]IC [facility]; [facility] Work Phone: 11-18-2020 08:51-0500 Body Temperature 96.9 [degF] Lamar Schmidt [employer]LLISION MECHANIC [facility]; [facility] Work Phone: Comment on above: Method: Thermal Scan 11-18-2020 08:51-0500 Body weight 45.36 kg [email or web address]] [facility]; [facility] Work Phone: 11-18-2020 08:51-0500 BP Diastolic 68 mm[Hg] [email or web address]] [facility]; [facility] Work Phone: Comment on above: Patient Position: Sitting; Cuff Location : Left Arm; Cuff Size: Standard 11-18-2020 08:51-0500 BP Systolic 122 mm[Hg] [email or web address]] [facility]; [facility] Work Phone: Comment on above: Patient Position: Sitting; Cuff Location : Left Arm; Cuff Size: Standard 11-18-2020 08:51-0500 BSA (Body Surface Area) 1.37 m2 [email or web address]] [facility]; [facility] Work Phone: 11-18-2020 08:51-0500 Height 149.86 cm [email or web address]] [facility]; [facility] Work Phone: 11-18-2020 08:51-0500 Pulse (Heart Rate) 85 /min [facility] [email or web address]; [facility] Work Phone: Comment on above: Pattern: Regular 11-18-2020 08:51-0500 Pulse Oximetry 98 % Meghna Gregory [facility]; [facility] Work Phone: Comment on above: Room air 11-18-2020 08:51-0500 Respiratory Rate 16 /min [email or web address]] [facility]; [facility] Work Phone: Comment on above: Pattern: Unlabored 11-18-2020 08:51-0500 SaO2% (BldA) [Mass fraction] 98 % [email or web address]] [facility]; [facility] Work Phone: 11-09-2020 09:46-0500 BMI (Body Mass Index) 20 kg/m2 STACEY Lopez [facility]; [facility] Work Phone: Comment on above: pulse ox not cloth picker with cold fingers 6 8 11-09-2020 09:46-0500 Body Temperature 97.9 [degF] STACEY Lopez LPN [facility] Medicine; [facility] Work Phone: Comment on above: Method: Temporal pulse ox not cloth picker with cold fingers 11-09-2020 09:46-0500 Body weight 44.91 kg STACEY Lopez LPN [facility]; [facility] Work Phone: Comment on above: pulse ox not cloth picker with cold fingers 6 8 11-09-2020 09:46-0500 BP Diastolic 74 mm[Hg] STACEY Lopez LPN [facility]; [facility] Work Phone: Comment on above: Patient Position: Sitting; Cuff Location : Left Arm; Cuff Size: Standard pulse ox not cloth picker with cold fingers 11-09-2020 09:46-0500 BP Systolic 118 mm[Hg] STACEY Lopez LPN [facility] Medicine; [facility] Work Phone: Comment on above: Patient Position: Sitting; Cuff Location : Left Arm; Cuff Size: Standard pulse ox not cloth picker with cold fingers 11-09-2020 09:46-0500 BSA (Body Surface Area) 1.37 m2 STACEY Lopez LPN [facility]; [facility] Work Phone: Comment on above: pulse ox not cloth picker with cold fingers 6 11-09-2020 09:46-0500 Height 149.86 cm STACEY Lopez LPN [facility]; [facility] Work Phone: Comment on above: pulse ox not cloth picker with cold fingers 6 11-09-2020 09:46-0500 Pulse (Heart Rate) 74 /min STACEY Lopez LPN [facility]; [facility] Work Phone: Comment on above: Pattern: Regular pulse ox not cloth picker with cold fingers 11-09-2020 09:46-0500 Respiratory Rate 18 /min STACEY Lopez LPN [facility]; [facility] Work Phone: Comment on above: Pattern: Unlabored pulse ox not cloth picker with cold fingers 07-27-2020 13:31-0400 BMI (Body Mass Index) 20 kg/m2 Chasity Vanessa [employer] [facility] Work Phone: 07-27-2020 13:31-0400 Body Temperature 97.1 [degF] Chasity Vanessa CMA [facility] Internal Medicine Work Phone: Comment on above: Method: Infrared 07-27-2020 13:31-0400 Body weight 44.91 kg Chasity Vanessa CMA [facility] Medicine Work Phone: 07-27-2020 13:31-0400 BP Diastolic 78 mm[Hg] Chasity Vanessa [facility] Internal Medicine Work Phone: Comment on above: Patient Position: Sitting; Cuff Location : Left Arm; Cuff Size: Standard 07-27-2020 13:31-0400 BP Systolic 116 mm[Hg] Chasity Vanessa [facility] Internal Medicine Work Phone: Comment on above: Patient Position: Sitting; Cuff Location : Left Arm; Cuff Size: Standard 07-27-2020 13:31-0400 BSA (Body Surface Area) 1.37 m2 Chasity Vanessa [facility] Work Phone: 07-27-2020 13:31-0400 Height 149.86 cm Chasity Vanessa [facility] Internal Medicine Work Phone: 07-27-2020 13:31-0400 Pulse (Heart Rate) 95 /min Chasity Vanessa [facility] Internal Medicine Work Phone: Comment on above: Pattern: Regular 07-27-2020 13:31-0400 Pulse Oximetry 98 % Meghna Bri [facility] Internal Medicine Work Phone: Comment on above: Room air 07-27-2020 13:31-0400 Respiratory Rate 16 /min Chasity Vanessa [facility] Internal Medicine Work Phone: Comment on above: Pattern: Unlabored 07-27-2020 13:31-0400 SaO2% (BldA) [Mass fraction] 98 % Chasity Vanessa [facility]; [facility] Work Phone: 04-23-2020 09:55-0400 BMI (Body Mass Index) 19.59 kg/m2 Chasity Vanessa [facility] Medicine Work Phone: 04-23-2020 09:55-0400 Body Temperature 96.9 [degF] Chasity Vanessa [facility] Internal Medicine Work Phone: Comment on above: Method: Temporal 04-23-2020 09:55-0400 Body weight 44 kg Chasity Vanessa [facility] Internal Medicine Work Phone: 04-23-2020 09:55-0400 BP Diastolic 70 mm[Hg] Chasity Vanessa [facility] Internal Medicine Work Phone: Comment on above: Patient Position: Sitting; Cuff Location : Left Arm; Cuff Size: Standard 04-23-2020 09:55-0400 BP Systolic 117 mm[Hg] Chasity Vanessa [facility] Internal Medicine Work Phone: Comment on above: Patient Position: Sitting; Cuff Location : Left Arm; Cuff Size: Standard 04-23-2020 09:55-0400 BSA (Body Surface Area) 1.36 m2 Chasity Vanessa [facility] Internal Medicine Work Phone: 04-23-2020 09:55-0400 Height 149.86 cm Chasity Vanessa [facility] Medicine Work Phone: 04-23-2020 09:55-0400 Pulse (Heart Rate) 112 /min Chasity Vanessa [facility] Internal Medicine Work Phone: Comment on above: Pattern: Regular 04-23-2020 09:55-0400 Pulse Oximetry 98 % Meghna Gregory [facility] Internal Medicine Work Phone: Comment on above: Room air 04-23-2020 09:55-0400 Respiratory Rate 16 /min Chasity Vanessa [facility] Internal Medicine Work Phone: Comment on above: Pattern: Unlabored 04-23-2020 09:55-0400 SaO2% (BldA) [Mass fraction] 98 % Chasity Vanessa [facility]; [facility] Work Phone: 02-19-2020 09:39-0400 BMI (Body Mass Index) 19.39 kg/m2 Nika Slarb [employer]CH[employer]IC [facility] Work Phone: 02-19-2020 09:39-0400 Body Temperature 97.4 [degF] Nika Slarb [employer] MECH[employer]IC [facility] Work Phone: 02-19-2020 09:39-0400 Body weight 43.55 kg Nika Slarb [employer]CH[employer]IC [facility] Work Phone: 02-19-2020 09:39-0400 BP Diastolic 62 mm[Hg] Nika Slarb [employer] MECH[employer] [facility] Work Phone: Comment on above: Patient Position: Sitting; Cuff Location : Left Arm; Cuff Size: Standard 02-19-2020 09:39-0400 BP Systolic 94 mm[Hg] Nika Slarb [employer] MECH[employer] [facility] Work Phone: Comment on above: Patient Position: Sitting; Cuff Location : Left Arm; Cuff Size: Standard 02-19-2020 09:39-0400 BSA (Body Surface Area) 1.35 m2 Nika Slarb [employer] MECH[employer]IC [facility] Work Phone: 02-19-2020 09:39-0400 Height 149.86 cm Nika Slarb [employer]LLISION MECHANIC [facility] Work Phone: 02-19-2020 09:39-0400 Pulse (Heart Rate) 85 /min Nika Davidrb [employer]LLISION MECH[employer]IC [facility]prehens[facility] Work Phone: Comment on above: Pattern: Regular 02-19-2020 09:39-0400 Pulse Oximetry 99 % Meghna Gregory [facility] Work Phone: Comment on above: Room air 02-19-2020 09:39-0400 Respiratory Rate 17 /min Nika Slarb [employer]LLISION MECHANIC [facility] Work Phone: Comment on above: Pattern: Unlabored 02-19-2020 09:39-0400 SaO2% (BldA) [Mass fraction] 99 % Nika Slarb [employer]LLISION MECHANIC [facility]; [facility] Work Phone: 02-05-2020 09:29-0400 BMI (Body Mass Index) 19.39 kg/m2 Meghna Gregory DO Work Phone: [facility] Work Phone: Comment on above: repeat BP 84/62-- she will work on more fluids and stop atenolol now 02-05-2020 09:29-0400 Body Temperature 96.9 [degF] Meghna Gregory DO Work Phone: [facility] Work Phone: Comment on above: Method: Temporal repeat BP 84/62-- sh e will work on more fluids and stop atenolol now 02-05-2020 09:29-0400 Body weight 43.55 kg Meghna Gregory DO Work Phone: [facility] Work Phone: Comment on above: repeat BP 84/62-- she will work on more fluids and stop atenolol now 02-05-2020 09:29-0400 BP Diastolic 50 mm[Hg] Meghna Gregory DO Work Phone: [facility] Work Phone: Comment on above: Patient Position: Sitting; Cuff Location : Left Arm; Cuff Size: Standard repeat BP 84/62-- sh e will work on more fluids and stop atenolol now 02-05-2020 09:29-0400 BP Systolic 80 mm[Hg] Meghna Gregory DO Work Phone: [facility] Work Phone: Comment on above: Patient Position: Sitting; Cuff Location : Left Arm; Cuff Size: Standard repeat BP 84/62-- sh e will work on more fluids and stop atenolol now 02-05-2020 09:29-0400 BSA (Body Surface Area) 1.35 m2 Meghna Gregory DO Work Phone: [facility] Work Phone: Comment on above: repeat BP 84/62-- she will work on more fluids and stop atenolol now 02-05-2020 09:29-0400 Height 149.86 cm Meghna Gregory DO Work Phone: [facility] Work Phone: Comment on above: repeat BP 84/62-- she will work on more fluids and stop atenolol now 02-05-2020 09:29-0400 Pulse (Heart Rate) 84 /min Meghna Gregory DO Work Phone: [facility] Work Phone: Comment on above: Pattern: Regular repeat BP 84/62-- sh e will work on more fluids and stop atenolol now 02-05-2020 09:29-0400 Pulse Oximetry 99 % Meghna Gregory [facility] Work Phone: Comment on above: Room air repeat BP 84/62-- sh e will work on more fluids and stop atenolol now 02-05-2020 09:29-0400 Respiratory Rate 16 /min Meghna Gregory DO Work Phone: [facility] Work Phone: Comment on above: Pattern: Unlabored repeat BP 84/62-- sh e will work on more fluids and stop atenolol now 02-05-2020 09:29-0400 SaO2% (BldA) [Mass fraction] 99 % Meghna Gregory DO Work Phone: [facility]; [facility] Work Phone: 01-31-2020 07:31-0400 BMI (Body Mass Index) 19.59 kg/m2 Chasity Vanessa [facility] Work Phone: Comment on above: no vs taken phone visit due to [place] pandemic 01-31-2020 07:31-0400 Body weight 44 kg Chasity Vanessa [facility] Work Phone: Comment on above: no vs taken phone visit due to [place] pandemic 01-31-2020 07:31-0400 BSA (Body Surface Area) 1.36 m2 Chasity Vanessa [facility] Work Phone: Comment on above: no vs taken phone visit due to [place] pandemic 01-31-2020 07:31-0400 Height 149.86 cm Chasity Vanessa [facility] Work Phone: Comment on above: no vs taken phone visit due to [place] pandemic 12-30-2019 10:29-0400 BMI (Body Mass Index) 19.59 kg/m2 Nika Davidrb COLLISION MECH[employer]IC [facility] Internal Medicine Work Phone: Comment on above: Pt checked own temp -virtual visit 12-30-2019 10:29-0400 Body Temperature 97.8 [degF] Nika Hernandezrb COLLISION MECHANIC [facility] Medicine Work Phone: Comment on above: Pt checked own temp -virtual visit 12-30-2019 10:29-0400 Body weight 44 kg Nika Borrego [employer]LLISION MECHANIC [facility] Medicine Work Phone: Comment on above: Pt checked own temp -virtual visit 12-30-2019 10:29-0400 BSA (Body Surface Area) 1.36 m2 Nika Hernandezrb [employer]LLISION MECHANIC [facility] Medicine Work Phone: Comment on above: Pt checked own temp -virtual visit 12-30-2019 10:29-0400 Height 149.86 cm Nika Slanatalie RUDOLPH [facility] Medicine Work Phone: Comment on above: Pt checked own temp -virtual visit 10-28-2019 10:21-0500 BMI (Body Mass Index) 19.59 kg/m2 Pat Crook RN [facility] Work Phone: 10-28-2019 10:21-0500 Body Temperature 97.2 [degF] Pat Crook RN [facility] Work Phone: Comment on above: Method: Temporal 10-28-2019 10:21-0500 Body weight 44 kg Pat Crook RN [facility] Work Phone: 10-28-2019 10:21-0500 BP Diastolic 74 mm[Hg] Pat Crook RN [facility] Work Phone: Comment on above: Patient Position: Sitting; Cuff Location : Left Arm; Cuff Size: Standard 10-28-2019 10:21-0500 BP Systolic 126 mm[Hg] Pat Crook RN [facility] Work Phone: Comment on above: Patient Position: Sitting; Cuff Location : Left Arm; Cuff Size: Standard 10-28-2019 10:21-0500 BSA (Body Surface Area) 1.36 m2 Pat Crook RN [facility] Work Phone: 10-28-2019 10:21-0500 Height 149.86 cm Pat Crook RN [facility] Work Phone: 10-28-2019 10:21-0500 Pulse (Heart Rate) 67 /min Pat Crook RN [facility] Work Phone: Comment on above: Pattern: Regular 10-28-2019 10:21-0500 Pulse Oximetry 98 % Meghna Gregory [facility] Work Phone: Comment on above: Room air 10-28-2019 10:21-0500 Respiratory Rate 16 /min Pat Crook RN [facility] Work Phone: Comment on above: Pattern: Unlabored 10-28-2019 10:21-0500 SaO2% (BldA) [Mass fraction] 98 % Pat Crook RN [facility]; [facility] Work Phone: 09-27-2019 09:46-0500 BMI (Body Mass Index) 20.4 kg/m2 Calixto Roman LPN [facility] Internal Medicine Work Phone: 09-27-2019 09:46-0500 Body Temperature 97.9 [degF] Calixto Roman LPN [facility] Medicine Work Phone: Comment on above: Method: Temporal 09-27-2019 09:46-0500 Body weight 45.81 kg Calixto Roman LPN [facility] Work Phone: 09-27-2019 09:46-0500 BP Diastolic 58 mm[Hg] Calixto oRman LPN [facility] Work Phone: Comment on above: Patient Position: Sitting; Cuff Location : Left Arm; Cuff Size: Standard 09-27-2019 09:46-0500 BP Systolic 98 mm[Hg] Calixto Roman LPN [facility] Medicine Work Phone: Comment on above: Patient Position: Sitting; Cuff Location : Left Arm; Cuff Size: Standard 09-27-2019 09:46-0500 BSA (Body Surface Area) 1.38 m2 Calixto Roman LPN [facility] Work Phone: 09-27-2019 09:46-0500 Height 149.86 cm Calixto Roman LPN [facility] Work Phone: 09-27-2019 09:46-0500 Pulse (Heart Rate) 92 /min Calixto Roman LPN [facility] Work Phone: Comment on above: Pattern: Regular 09-27-2019 09:46-0500 Pulse Oximetry 97 % Meghna Gregory [facility] Work Phone: Comment on above: Room air 09-27-2019 09:46-0500 Respiratory Rate 16 /min Calixto Roman LPN [facility] Work Phone: Comment on above: Pattern: Unlabored 09-27-2019 09:46-0500 SaO2% (BldA) [Mass fraction] 97 % Calixto Roman LPN [facility]; [facility] Work Phone: 02-08-2019 09:11-0400 BMI (Body Mass Index) 20.4 kg/m2 Manju Valerio RN [facility] Work Phone: 02-08-2019 09:11-0400 Body Temperature 98.2 [degF] Manju Valerio RN [facility] Work Phone: Comment on above: Method: Temporal 02-08-2019 09:11-0400 Body weight 45.81 kg Manju Valerio RN [facility] Work Phone: 02-08-2019 09:11-0400 BP Diastolic 72 mm[Hg] Manju Valerio RN [facility] Work Phone: Comment on above: Patient Position: Sitting; Cuff Location : Left Arm; Cuff Size: Standard 02-08-2019 09:11-0400 BP Systolic 100 mm[Hg] Manju Valerio RN [facility] Work Phone: Comment on above: Patient Position: Sitting; Cuff Location : Left Arm; Cuff Size: Standard 02-08-2019 09:11-0400 BSA (Body Surface Area) 1.38 m2 Manju Valerio RN [facility] Work Phone: 02-08-2019 09:11-0400 Height 149.86 cm Manju Bentley Teodoro RN [facility] Work Phone: 02-08-2019 09:11-0400 Pulse (Heart Rate) 66 /min Manju Bentley Teodoro RN [facility] Work Phone: Comment on above: Pattern: Regular 02-08-2019 09:11-0400 Respiratory Rate 16 /min Manju Valerio RN [facility] Work Phone: Comment on above: Pattern: Unlabored 12-27-2018 08:12-0400 BMI (Body Mass Index) 20.1 kg/m2 Chasity Vanessa [facility] Medicine Work Phone: 12-27-2018 08:12-0400 Body Temperature 97.4 [degF] Chasity Vanessa [facility] Work Phone: Comment on above: Method: Temporal 12-27-2018 08:120400 Body weight 45.13 kg Chasity Vanessa [facility] Work Phone: 12-27-2018 08:12-0400 BP Diastolic 62 mm[Hg] Chasity Vanessa [facility] Work Phone: Comment on above: Patient Position: Sitting; Cuff Location : Left Arm; Cuff Size: Standard 12-27-2018 08:12-0400 BP Systolic 100 mm[Hg] Chasity Vanessa [facility] Work Phone: Comment on above: Patient Position: Sitting; Cuff Location : Left Arm; Cuff Size: Standard 12-27-2018 08:12-0400 BSA (Body Surface Area) 1.37 m2 Chasity Vanessa [facility] Work Phone: 12-27-2018 08:12-0400 Height 149.86 cm Chasity Vanessa [facility] Work Phone: 12-27-2018 08:12-0400 Pulse (Heart Rate) 100 /min Chasity Vanessa [facility] Work Phone: Comment on above: Pattern: Regular 12-27-2018 08:12-0400 Pulse Oximetry 99 % Meghna Gregory [facility] Work Phone: Comment on above: Room air 12-27-2018 08:12-0400 Respiratory Rate 16 /min Chasity Vanessa [facility] Work Phone: Comment on above: Pattern: Unlabored 12-27-2018 08:12-0400 SaO2% (BldA) [Mass fraction] 99 % Chasity Vanessa [facility]; [facility] Work Phone: 12-27-2018 08:12-0400 Weight 45.13 kg Meghna Gregory [facility] Work Phone: 10-10-2018 10:27-0500 BMI (Body Mass Index) 20.3 kg/m2 Arlene Vasquez [facility] Work Phone: 10-10-2018 10:27-0500 Body Temperature 97 [degF] Arlene Vasquez [facility] Work Phone: Comment on above: Method: Temporal 10-10-2018 10:27-0500 Body weight 45.59 kg Arlene Vasquez [facility] Work Phone: 10-10-2018 10:27-0500 BP Diastolic 80 mm[Hg] Arlene Vasquez [facility] Work Phone: Comment on above: Patient Position: Sitting; Cuff Location : Left Arm; Cuff Size: Standard 10-10-2018 10:27-0500 BP Systolic 108 mm[Hg] Arlene Vasquez [facility] Work Phone: Comment on above: Patient Position: Sitting; Cuff Location : Left Arm; Cuff Size: Standard 10-10-2018 10:27-0500 BSA (Body Surface Area) 1.38 m2 Arlene Vasquez [facility] Work Phone: 10-10-2018 10:27-0500 Height 149.86 cm Arlene Vasquez [facility] Work Phone: 10-10-2018 10:27-0500 Pulse (Heart Rate) 92 /min Arlene Vasquez [facility] Work Phone: Comment on above: Pattern: Regular 10-10-2018 10:27-0500 Pulse Oximetry 96 % Meghna Gregory [facility] Work Phone: Comment on above: Room air 10-10-2018 10:27-0500 Respiratory Rate 17 /min Arlene Vasquez [facility] Work Phone: Comment on above: Pattern: Unlabored 10-10-2018 10:27-0500 SaO2% (BldA) [Mass fraction] 96 % Arlene Vasquez [facility]; [facility] Work Phone: 10-10-2018 10:27-0500 Weight 45.59 kg Meghna Gregory [facility] Work Phone: 03-13-2018 08:52-0400 BMI (Body Mass Index) 20.3 kg/m2 Mary Roman [facility] Internal Medicine Work Phone: 03-13-2018 08:52-0400 Body weight 45.59 kg Mary [facility] Work Phone: 03-13-2018 08:52-0400 BP Diastolic 60 mm[Hg] Mary [facility] Work Phone: Comment on above: Patient Position: Sitting; Cuff Location : Left Arm; Cuff Size: Standard 03-13-2018 08:52-0400 BP Systolic 112 mm[Hg] Mary [facility] Work Phone: Comment on above: Patient Position: Sitting; Cuff Location : Left Arm; Cuff Size: Standard 03-13-2018 08:52-0400 BSA (Body Surface Area) 1.38 m2 Mary Roman [facility] Work Phone: 03-13-2018 08:52-0400 Height 149.86 cm Mary [facility] Work Phone: 03-13-2018 08:52-0400 Pulse (Heart Rate) 83 /min Mary [facility] Work Phone: Comment on above: Pattern: Regular 03-13-2018 08:52-0400 Pulse Oximetry 97 % Meghna Gregory [facility] Work Phone: Comment on above: Room air 03-13-2018 08:52-0400 Respiratory Rate 18 /min Mary Roman [facility] Work Phone: Comment on above: Pattern: Unlabored 03-13-2018 08:52-0400 SaO2% (BldA) [Mass fraction] 97 % Mary Roman [facility]; [facility] Work Phone: 03-13-2018 08:52-0400 Weight 45.59 kg Meghna Gregory [facility] Work Phone: 02-16-2018 08:45-0400 BMI (Body Mass Index) 20.4 kg/m2 Pat Crook RN [facility] Work Phone: 02-16-2018 08:45-0400 Body weight 45.81 kg Pat Crook RN [facility] Work Phone: 02-16-2018 08:45-0400 BP Diastolic 76 mm[Hg] Pat Crook RN [facility] Work Phone: Comment on above: Patient Position: Sitting; Cuff Location : Left Arm; Cuff Size: Standard 02-16-2018 08:45-0400 BP Systolic 118 mm[Hg] Pat Crook RN [facility] Work Phone: Comment on above: Patient Position: Sitting; Cuff Location : Left Arm; Cuff Size: Standard 02-16-2018 08:45-0400 BSA (Body Surface Area) 1.38 m2 Pat Crook RN [facility] Work Phone: 02-16-2018 08:45-0400 Height 149.86 cm Pat Crook RN [facility] Work Phone: 02-16-2018 08:45-0400 Pulse (Heart Rate) 86 /min Pat Crook RN [facility] Work Phone: Comment on above: Pattern: Regular 02-16-2018 08:45-0400 Pulse Oximetry 97 % Meghna Gregory [facility] Work Phone: Comment on above: Room air 02-16-2018 08:45-0400 Respiratory Rate 18 /min Pat Crook RN [facility] Work Phone: Comment on above: Pattern: Unlabored 02-16-2018 08:45-0400 SaO2% (BldA) [Mass fraction] 97 % Pat Crook RN [facility]; [facility] Work Phone: 02-16-2018 08:45-0400 Weight 45.81 kg Meghna Gregory [facility] Work Phone: 08-07-2017 10:17-0500 BMI (Body Mass Index) 20.05 kg/m2 Rebeca Hameed [facility] Internal Medicine Work Phone: 08-07-2017 10:17-0500 Body Temperature 97.5 [degF] Rebeca Hameed [facility] Work Phone: Comment on above: Method: Temporal 08-07-2017 10:17-0500 Body weight 45.02 kg Rebeca Hameed [facility] Medicine Work Phone: 08-07-2017 10:17-0500 BP Diastolic 64 mm[Hg] Rebeca Hameed [facility] Medicine Work Phone: Comment on above: Patient Position: Sitting; Cuff Location : Left Arm; Cuff Size: Standard 08-07-2017 10:17-0500 BP Systolic 118 mm[Hg] Rebeca Hameed [facility] Work Phone: Comment on above: Patient Position: Sitting; Cuff Location : Left Arm; Cuff Size: Standard 08-07-2017 10:17-0500 BSA (Body Surface Area) 1.37 m2 Rebeca Hameed [facility] Work Phone: 08-07-2017 10:17-0500 Height 149.86 cm Rebeca Hameed [facility] Work Phone: 08-07-2017 10:17-0500 Pulse (Heart Rate) 86 /min Rebeca Hameed [facility] Medicine Work Phone: Comment on above: Pattern: Regular 08-07-2017 10:17-0500 Pulse Oximetry 95 % Meghna Gregory [facility] Work Phone: Comment on above: Room air 08-07-2017 10:17-0500 Respiratory Rate 16 /min Rebeca Hameed [facility] Internal Medicine Work Phone: Comment on above: Pattern: Unlabored 08-07-2017 10:17-0500 SaO2% (BldA) [Mass fraction] 95 % Rebeca Hameed [facility]; [facility] Work Phone: 08-07-2017 10:17-0500 Weight 45.02 kg Meghna Gregory [facility] Work Phone: 01-30-2017 13:55-0400 BMI (Body Mass Index) 20.05 kg/m2 Pat Crook RN [facility] Work Phone: 01-30-2017 13:55-0400 Body weight 45.02 kg Pat Crook RN [facility] Work Phone: 01-30-2017 13:55-0400 BP Diastolic 80 mm[Hg] Pat Crook RN [facility] Work Phone: Comment on above: Patient Position: Sitting; Cuff Location : Left Arm; Cuff Size: Standard 01-30-2017 13:55-0400 BP Systolic 118 mm[Hg] Pat Crook RN [facility] Work Phone: Comment on above: Patient Position: Sitting; Cuff Location : Left Arm; Cuff Size: Standard 01-30-2017 13:55-0400 BSA (Body Surface Area) 1.37 m2 Pat Crook RN [facility] Work Phone: 01-30-2017 13:55-0400 Height 149.86 cm Pat Crook RN [facility] Work Phone: 01-30-2017 13:55-0400 Pulse (Heart Rate) 77 /min Pat Crook RN [facility] Work Phone: Comment on above: Pattern: Regular 01-30-2017 13:55-0400 Pulse Oximetry 100 % Meghna Gregory [facility] Work Phone: Comment on above: Room air 01-30-2017 13:55-0400 Respiratory Rate 18 /min Pat Crook RN [facility] Work Phone: Comment on above: Pattern: Unlabored 01-30-2017 13:55-0400 SaO2% (BldA) [Mass fraction] 100 % Pat Crook RN [facility]; [facility] Work Phone: 01-30-2017 13:55-0400 Weight 45.02 kg Meghna Gregory [facility] Work Phone: 08-11-2016 11:00-0500 BMI (Body Mass Index) 20.02 kg/m2 Pat Crook RN [facility] Work Phone: 08-11-2016 11:00-0500 Body weight 44.96 kg Pat Crook RN [facility] Work Phone: 08-11-2016 11:00-0500 BP Diastolic 80 mm[Hg] Pat Crook RN [facility] Work Phone: Comment on above: Patient Position: Sitting; Cuff Location : Left Arm; Cuff Size: Standard 08-11-2016 11:00-0500 BP Systolic 118 mm[Hg] Pat Crook RN [facility] Work Phone: Comment on above: Patient Position: Sitting; Cuff Location : Left Arm; Cuff Size: Standard 08-11-2016 11:00-0500 BSA (Body Surface Area) 1.37 m2 Pat Crook RN [facility] Work Phone: 08-11-2016 11:00-0500 Height 149.86 cm Pat Crook RN [facility] Work Phone: 08-11-2016 11:00-0500 Pulse (Heart Rate) 90 /min Pat Crook RN [facility] Work Phone: Comment on above: Pattern: Regular 08-11-2016 11:00-0500 Pulse Oximetry 87 % Meghna Gregory [facility] Work Phone: Comment on above: Room air 08-11-2016 11:00-0500 Respiratory Rate 18 /min Pat Crook RN [facility] Work Phone: Comment on above: Pattern: Unlabored 08-11-2016 11:00-0500 SaO2% (BldA) [Mass fraction] 87 % Pat Crook RN [facility]; [facility] Work Phone: 08-11-2016 11:00-0500 Weight 44.96 kg Meghna Gregory [facility] Work Phone: 01-26-2015 12:57-0400 BMI (Body Mass Index) 21.64 kg/m2 Pat Crook RN [facility] Work Phone: 01-26-2015 12:57-0400 Body weight 48.59 kg Pat Crook RN [facility] Work Phone: 01-26-2015 12:57-0400 BP Diastolic 60 mm[Hg] Pat Crook RN [facility] Work Phone: Comment on above: Patient Position: Sitting; Cuff Location : Left Arm; Cuff Size: Standard 01-26-2015 12:57-0400 BP Systolic 120 mm[Hg] Pat Crook RN [facility] Work Phone: Comment on above: Patient Position: Sitting; Cuff Location : Left Arm; Cuff Size: Standard 01-26-2015 12:57-0400 BSA (Body Surface Area) 1.41 m2 Pat Crook RN [facility] Work Phone: 01-26-2015 12:57-0400 Height 149.86 cm Pat Crook RN [facility] Work Phone: 01-26-2015 12:57-0400 Pulse (Heart Rate) 91 /min Pat Crook RN [facility] Work Phone: Comment on above: Pattern: Regular 01-26-2015 12:57-0400 Pulse Oximetry 97 % Meghna Gregory [facility] Work Phone: Comment on above: Room air 01-26-2015 12:57-0400 Respiratory Rate 18 /min Pat Crook RN [facility] Work Phone: Comment on above: Pattern: Unlabored 01-26-2015 12:57-0400 SaO2% (BldA) [Mass fraction] 97 % Pat Crook RN [facility]; [facility] Work Phone: 01-26-2015 12:57-0400 Weight 48.59 kg Meghna Gregory [facility] Work Phone: 07-30-2014 08:19-0400 BMI (Body Mass Index) 21.81 kg/m2 Christina hope Internal [facility] Work Phone: 07-30-2014 08:19-0400 Body Temperature 98.3 [degF] Christina Villegas [facility] Work Phone: 07-30-2014 08:19-0400 Body weight 48.99 kg Christina Villegas [facility] Work Phone: 07-30-2014 08:19-0400 BP Diastolic 62 mm[Hg] Christina Villegas [facility] Work Phone: Comment on above: Patient Position: Sitting; Cuff Location : Left Arm; Cuff Size: Standard 07-30-2014 08:0400 BP Systolic 100 mm[Hg] Christina Villegas [facility] Work Phone: Comment on above: Patient Position: Sitting; Cuff Location : Left Arm; Cuff Size: Standard 07-30-2014 08:0400 BSA (Body Surface Area) 1.42 m2 Christina Villegas [facility] Work Phone: 07-30-2014 08:190400 Height 149.86 cm Christina Villegas [facility] Work Phone: 07-30-2014 08:19-0400 Pulse (Heart Rate) 74 /min Christina Villegas [facility] Work Phone: Comment on above: Pattern: Regular 07-30-2014 08:19-0400 Pulse Oximetry 95 % Meghna Gregory [facility] Work Phone: Comment on above: Room air 07-30-2014 08:19-0400 Respiratory Rate 18 /min Christina Villegas [facility] Work Phone: Comment on above: Pattern: Unlabored 07-30-2014 08:19-0400 SaO2% (BldA) [Mass fraction] 95 % Christina Villegas [facility]; [facility] Work Phone: 07-30-2014 08:19-0400 Weight 48.99 kg Meghna Gregory [facility] Work Phone: 07-16-2014 10:06-0400 BMI (Body Mass Index) 21.41 kg/m2 Pamela Humphrey LPN [facility] Work Phone: 07-16-2014 10:06-0400 Body Temperature 97.8 [degF] Pamela Humphrey LPN [facility] Work Phone: Comment on above: Method: Oral 07-16-2014 10:06-0400 Body weight 48.08 kg Pamela Humphrey LPN [facility] Work Phone: 07-16-2014 10:06-0400 BP Diastolic 68 mm[Hg] Pamela Humphrey LPN [facility] Work Phone: Comment on above: Patient Position: Sitting; Cuff Location : Left Arm; Cuff Size: Standard 07-16-2014 10:06-0400 BP Systolic 110 mm[Hg] Pamela Humphrey LPN [facility] Work Phone: Comment on above: Patient Position: Sitting; Cuff Location : Left Arm; Cuff Size: Standard 07-16-2014 10:06-0400 BSA (Body Surface Area) 1.41 m2 Pamela Humphrey LPN [facility] Work Phone: 07-16-2014 10:06-0400 Height 149.86 cm Pamela Humphrey LPN [facility] Work Phone: 07-16-2014 10:06-0400 Pulse (Heart Rate) 82 /min Pamela Humphrey LPN [facility] Work Phone: Comment on above: Pattern: Regular 07-16-2014 10:06-0400 Pulse Oximetry 98 % Meghna Gregory [facility] Work Phone: Comment on above: Room air 07-16-2014 10:06-0400 Respiratory Rate 16 /min Pamela Humphrey LPN [facility] Work Phone: 07-16-2014 10:06-0400 SaO2% (BldA) [Mass fraction] 98 % Pamela Humphrey LPN [facility]; [facility] Work Phone: 07-16-2014 10:06-0400 Weight 48.08 kg Meghna Gregory [facility] Work Phone: 12-23-2013 08:46-0400 BMI (Body Mass Index) 21.41 kg/m2 Pamela Humphrey LPN [facility] Work Phone: 12-23-2013 08:46-0400 Body Temperature 98.9 [degF] Pamela Humphrey LPN [facility] Work Phone: Comment on above: Method: Oral 12-23-2013 08:46-0400 Body weight 48.08 kg Pamela Humphrey LPN [facility] Work Phone: 12-23-2013 08:46-0400 BP Diastolic 68 mm[Hg] Pamela Humphrey LPN [facility] Work Phone: Comment on above: Patient Position: Sitting; Cuff Location : Left Arm; Cuff Size: Standard 12-23-2013 08:46-0400 BP Systolic 110 mm[Hg] Pamela Humphrey LPN [facility] Work Phone: Comment on above: Patient Position: Sitting; Cuff Location : Left Arm; Cuff Size: Standard 12-23-2013 08:46-0400 BSA (Body Surface Area) 1.41 m2 Pamela Humphrey LPN [facility] Work Phone: 12-23-2013 08:46-0400 Height 149.86 cm Pamela Humphrey LPN [facility] Work Phone: 12-23-2013 08:46-0400 Pulse (Heart Rate) 76 /min Pamela Humphrey LPN [facility] Work Phone: Comment on above: Pattern: Regular 12-23-2013 08:46-0400 Pulse Oximetry 98 % Meghna Gregory [facility] Work Phone: Comment on above: Room air 12-23-2013 08:46-0400 Respiratory Rate 16 /min Pamela Humphrey LPN [facility] Work Phone: 12-23-2013 08:46-0400 SaO2% (BldA) [Mass fraction] 98 % Pamela Pruittjerry RUDOLPH [facility]; [facility] Work Phone: 12-23-2013 08:46-0400 Weight 48.08 kg Meghna Gregory [facility] Work Phone: 12-16-2013 08:48-0400 Body Temperature 96.5 [degF] Pamela Humphrey LPN [facility] Work Phone: Comment on above: Method: Oral 12-16-2013 08:48-0400 Body weight 48.08 kg Pamela Humphrey KLAUDIA [facility] Work Phone: 12-16-2013 08:48-0400 BP Diastolic 70 mm[Hg] Pamela Humphrey KLAUDIA [facility] Work Phone: Comment on above: Patient Position: Sitting; Cuff Location : Left Arm; Cuff Size: Standard 12-16-2013 08:48-0400 BP Systolic 106 mm[Hg] Pamela Humphrey KLAUDIA [facility] Work Phone: Comment on above: Patient Position: Sitting; Cuff Location : Left Arm; Cuff Size: Standard 12-16-2013 08:48-0400 Pulse (Heart Rate) 72 /min Pamela Humphrey LPN [facility] Work Phone: Comment on above: Pattern: Regular 12-16-2013 08:48-0400 Pulse Oximetry 94 % Meghna Gregory [facility] Work Phone: Comment on above: Room air 12-16-2013 08:48-0400 Respiratory Rate 16 /min Pamela Humphrey LPN [facility] Work Phone: 12-16-2013 08:48-0400 SaO2% (BldA) [Mass fraction] 94 % Pamela Humphrey KLAUDIA [facility]; [facility] Work Phone: 12-16-2013 08:48-0400 Weight 48.08 kg Meghna Gregory [facility] Work Phone: 11-25-2013 10:25-0500 BMI (Body Mass Index) 21.88 kg/m2 Manju Valerio RN [facility] Internal Medicine Work Phone: 11-25-2013 10:25-0500 Body Temperature 97.6 [degF] Manju Valerio RN [facility] Work Phone: Comment on above: Method: Oral 11-25-2013 10:25-0500 Body weight 49.56 kg Manju Valerio RN [facility] Work Phone: 11-25-2013 10:25-0500 BSA (Body Surface Area) 1.43 m2 Manju Valerio RN [facility] Work Phone: 11-25-2013 10:25-0500 Height 150.5 cm Manju Valerio RN [facility] Work Phone: 11-25-2013 10:25-0500 Pulse (Heart Rate) 86 /min Manju Valerio RN [facility] Work Phone: Comment on above: Pattern: Regular 11-25-2013 10:25-0500 Pulse Oximetry 95 % Meghna Gregory [facility] Work Phone: Comment on above: Room air 11-25-2013 10:25-0500 SaO2% (BldA) [Mass fraction] 95 % Manju Valerio RN [facility]; [facility] Work Phone: 11-25-2013 10:25-0500 Weight 49.56 kg Meghna Bri [facility] Work Phone: 11-08-2013 09:49-0500 BMI (Body Mass Index) 21.88 kg/m2 Rebeca Hameed [facility] Internal [facility] Work Phone: 11-08-2013 09:49-0500 Body weight 49.56 kg Rebeca Hameed [facility] Work Phone: 11-08-2013 09:49-0500 BP Diastolic 70 mm[Hg] Rebeca Hameed [facility] Work Phone: Comment on above: Patient Position: Sitting; Cuff Location : Left Arm; Cuff Size: Standard 11-08-2013 09:49-0500 BP Systolic 115 mm[Hg] Rebeca Hameed [facility] Work Phone: Comment on above: Patient Position: Sitting; Cuff Location : Left Arm; Cuff Size: Standard 11-08-2013 09:49-0500 BSA (Body Surface Area) 1.43 m2 Rebeca Hameed [facility] Work Phone: 11-08-2013 09:49-0500 Height 150.5 cm Rebeca Hameed [facility] Work Phone: 11-08-2013 09:49-0500 Respiratory Rate 16 /min Rebeca Hameed [facility] Work Phone: Comment on above: Pattern: Unlabored 11-08-2013 09:49-0500 Weight 49.56 kg Meghna Gregory [facility] Work Phone: 09-23-2013 09:30-0500 BMI (Body Mass Index) 21.88 kg/m2 Manju Valerio RN [facility] Internal Medicine Work Phone: 09-23-2013 09:30-0500 Body Temperature 97 [degF] Manju Valerio RN [facility] Work Phone: Comment on above: Method: Temporal 09-23-2013 09:30-0500 Body weight 49.56 kg Manju Valerio RN [facility] Work Phone: 09-23-2013 09:30-0500 BP Diastolic 76 mm[Hg] Manju Valerio RN [facility] Work Phone: Comment on above: Patient Position: Sitting; Cuff Location : Left Arm; Cuff Size: Standard 09-23-2013 09:30-0500 BP Systolic 118 mm[Hg] Manju Valerio RN [facility] Work Phone: Comment on above: Patient Position: Sitting; Cuff Location : Left Arm; Cuff Size: Standard 09-23-2013 09:30-0500 BSA (Body Surface Area) 1.43 m2 Manju Valerio RN [facility] Work Phone: 09-23-2013 09:30-0500 Height 150.5 cm Manju Valerio RN [facility] Work Phone: 09-23-2013 09:30-0500 Pulse (Heart Rate) 98 /min Manju Valerio RN [facility] Work Phone: Comment on above: Pattern: Regular 09-23-2013 09:30-0500 Pulse Oximetry 97 % Meghna Gregory [facility] Work Phone: Comment on above: Room air 09-23-2013 09:30-0500 Respiratory Rate 16 /min Manju Valerio RN [facility] Work Phone: Comment on above: Pattern: Unlabored 09-23-2013 09:30-0500 SaO2% (BldA) [Mass fraction] 97 % Manju Valerio RN [facility]; [facility] Work Phone: 09-23-2013 09:30-0500 Weight 49.56 kg Meghna Gregory [facility] Work Phone: 03-19-2013 10:09-0400 BMI (Body Mass Index) 21.88 kg/m2 Rosita Solorzano [facility] Work Phone: 03-19-2013 10:090400 Body Temperature 97.9 [degF] Rosita Solorzano [facility] Work Phone: Comment on above: Method: Tympanic 03-19-2013 10:090400 Body weight 49.56 kg Rosita Solorzano [facility] Work Phone: 03-19-2013 10:090400 BP Diastolic 62 mm[Hg] [facility] Phone: Comment on above: Patient Position: Sitting; Cuff Location : Left Arm; Cuff Size: Standard 03-19-2013 10:090400 BP Systolic 116 mm[Hg] [facility] Work Phone: Comment on above: Patient Position: Sitting; Cuff Location : Left Arm; Cuff Size: Standard 03-19-2013 10:09-0400 BSA (Body Surface Area) 1.43 m2 [facility] Work Phone: 03-19-2013 10:09-0400 Height 150.5 cm Rosita Solorzano [facility] Work Phone: 03-19-2013 10:09-0400 Pulse (Heart Rate) 80 /min Rosita Solorzano [facility] Work Phone: Comment on above: Pattern: Regular 03-19-2013 10:09-0400 Respiratory Rate 16 /min Rosita Solorzano [facility] Work Phone: Comment on above: Pattern: Unlabored 03-19-2013 10:09-0400 Weight 49.56 kg Meghna Gregory [facility] Work Phone: 11-26-2012 10:45-0500 BMI (Body Mass Index) 21.88 kg/m2 Pamela Humphrey KLAUDIA [facility] Work Phone: 11-26-2012 10:45-0500 Body Temperature 98.1 [degF] Pamela Humphrey KLAUDIA [facility] Work Phone: Comment on above: Method: Oral 11-26-2012 10:45-0500 Body weight 49.56 kg Pamela Humphrey LPN [facility] Work Phone: 11-26-2012 10:45-0500 BP Diastolic 74 mm[Hg] Pamela Humphrey KLAUDIA [facility] Work Phone: Comment on above: Patient Position: Sitting; Cuff Location : Left Arm; Cuff Size: Standard 11-26-2012 10:45-0500 BP Systolic 118 mm[Hg] Pamela Humphrey KLAUDIA [facility] Work Phone: Comment on above: Patient Position: Sitting; Cuff Location : Left Arm; Cuff Size: Standard 11-26-2012 10:45-0500 BSA (Body Surface Area) 1.43 m2 Pamela Humphrey KLAUDIA [facility] Work Phone: 11-26-2012 10:45-0500 Height 150.5 cm Pamela Humphrey KLAUDIA [facility] Work Phone: 11-26-2012 10:45-0500 Pulse (Heart Rate) 78 /min Pamela Humphrey KLAUDIA [facility] Work Phone: Comment on above: Pattern: Regular 11-26-2012 10:45-0500 Pulse Oximetry 20 % Meghna Gregory [facility] Work Phone: Comment on above: Room air 11-26-2012 10:45-0500 Respiratory Rate 18 /min Pamela Humphrey KLAUDIA [facility] Work Phone: 11-26-2012 10:45-0500 SaO2% (BldA) [Mass fraction] 20 % Pamela Humphrey LPN [facility]; [facility] Work Phone: 11-26-2012 10:45-0500 Weight 49.56 kg Meghna Gregory [facility] Work Phone: 11-23-2012 11:18-0500 BMI (Body Mass Index) 21.88 kg/m2 Pat Crook RN [facility] Work Phone: 11-23-2012 11:18-0500 Body weight 49.56 kg Pat Crook RN [facility] Work Phone: 11-23-2012 11:18-0500 BP Diastolic 62 mm[Hg] Pat Crook RN [facility] Work Phone: Comment on above: Patient Position: Sitting; Cuff Location : Left Arm; Cuff Size: Standard 11-23-2012 11:18-0500 BP Systolic 110 mm[Hg] Pat Crook RN [facility] Work Phone: Comment on above: Patient Position: Sitting; Cuff Location : Left Arm; Cuff Size: Standard 11-23-2012 11:18-0500 BSA (Body Surface Area) 1.43 m2 Pat Crook RN [facility] Work Phone: 11-23-2012 11:18-0500 Height 150.5 cm Pat Crook RN [facility] Work Phone: 11-23-2012 11:18-0500 Pulse (Heart Rate) 72 /min Pat Crook RN [facility] Work Phone: Comment on above: Pattern: Regular 11-23-2012 11:18-0500 Respiratory Rate 20 /min Pat Crook RN [facility] Work Phone: Comment on above: Pattern: Unlabored 11-23-2012 11:18-0500 Weight 49.56 kg Meghna Gregory [facility] Work Phone: 11-08-2012 14:03-0500 BMI (Body Mass Index) 21.63 kg/m2 STACEY Lopez LPN [facility] Work Phone: 11-08-2012 14:03-0500 Body Temperature 97.8 [degF] STACEY Lopez LPN [facility] Work Phone: Comment on above: Method: Oral 11-08-2012 14:03-0500 Body weight 48.99 kg STACEY Lopez LPN [facility] Work Phone: 11-08-2012 14:03-0500 BP Diastolic 74 mm[Hg] STACEY Lopez LPN [facility] Work Phone: Comment on above: Patient Position: Sitting; Cuff Location : Left Arm; Cuff Size: Standard 11-08-2012 14:03-0500 BP Systolic 114 mm[Hg] STACEY Lopez LPN [facility] Work Phone: Comment on above: Patient Position: Sitting; Cuff Location : Left Arm; Cuff Size: Standard 11-08-2012 14:03-0500 BSA (Body Surface Area) 1.42 m2 STACEY Lopez LPN [facility] Work Phone: 11-08-2012 14:03-0500 Height 150.5 cm STACEY Lopez LPN [facility] Work Phone: 11-08-2012 14:03-0500 Pulse (Heart Rate) 78 /min STACEY Lopez LPN [facility] Work Phone: Comment on above: Pattern: Regular 11-08-2012 14:03-0500 Respiratory Rate 20 /min STACEY Lopez LPN [facility] Work Phone: Comment on above: Pattern: Unlabored 11-08-2012 14:03-0500 Weight 48.99 kg Meghna Gregory [facility] Work Phone: 10-15-2012 14:24-0500 BMI (Body Mass Index) 21.65 kg/m2 Manju Valerio RN [facility] Internal Medicine Work Phone: 10-15-2012 14:24-0500 Body Temperature 98.2 [degF] Manju Valerio RN [facility] Work Phone: Comment on above: Method: Oral 10-15-2012 14:24-0500 Body weight 49.05 kg Manju Valerio RN [facility] Work Phone: 10-15-2012 14:24-0500 BP Diastolic 72 mm[Hg] Manju Valerio RN [facility] Work Phone: Comment on above: Patient Position: Sitting; Cuff Location : Left Arm; Cuff Size: Standard 10-15-2012 14:24-0500 BP Systolic 116 mm[Hg] Manju Valerio RN [facility] Work Phone: Comment on above: Patient Position: Sitting; Cuff Location : Left Arm; Cuff Size: Standard 10-15-2012 14:24-0500 BSA (Body Surface Area) 1.42 m2 Manju Valerio RN [facility] Work Phone: 10-15-2012 14:24-0500 Height 150.5 cm Manju Valerio RN [facility] Work Phone: 10-15-2012 14:24-0500 Pulse (Heart Rate) 72 /min Manju Valerio RN [facility] Work Phone: Comment on above: Pattern: Regular 10-15-2012 14:24-0500 Respiratory Rate 16 /min Manju Valerio RN [facility] Work Phone: Comment on above: Pattern: Unlabored 10-15-2012 14:24-0500 Weight 49.05 kg Meghna Gregory [facility] Work Phone: 09-21-2012 13:06-0500 BMI (Body Mass Index) 21.65 kg/m2 Pat Crook RN [facility] Work Phone: 09-21-2012 13:06-0500 Body weight 49.05 kg Pat Crook RN [facility] Work Phone: 09-21-2012 13:06-0500 BP Diastolic 64 mm[Hg] Pat Crook RN [facility] Work Phone: Comment on above: Patient Position: Sitting; Cuff Location : Left Arm; Cuff Size: Standard 09-21-2012 13:06-0500 BP Systolic 102 mm[Hg] Pat Crook RN [facility] Work Phone: Comment on above: Patient Position: Sitting; Cuff Location : Left Arm; Cuff Size: Standard 09-21-2012 13:06-0500 BSA (Body Surface Area) 1.42 m2 Pat Crook RN [facility] Work Phone: 09-21-2012 13:06-0500 Height 150.5 cm Pat Crook RN [facility] Work Phone: 09-21-2012 13:06-0500 Pulse (Heart Rate) 64 /min Pat Crook RN [facility] Work Phone: Comment on above: Pattern: Regular 09-21-2012 13:06-0500 Respiratory Rate 18 /min Pat Crook RN [facility] Work Phone: Comment on above: Pattern: Unlabored 09-21-2012 13:06-0500 Weight 49.05 kg Meghna Gregory [facility] Work Phone: 07-22-2011 08:25-0400 BMI (Body Mass Index) 22.26 kg/m2 Pat Crook RN [facility] Work Phone: 07-22-2011 08:25-0400 Body Temperature 98.2 [degF] Pat Crook RN [facility] Work Phone: Comment on above: Method: Oral 07-22-2011 08:25-0400 Body weight 50.41 kg Pat Crook RN [facility] Work Phone: 07-22-2011 08:25-0400 BP Diastolic 80 mm[Hg] Pat Crook RN [facility] Work Phone: Comment on above: Patient Position: Sitting; Cuff Location : Left Arm; Cuff Size: Large 07-22-2011 08:25-0400 BP Systolic 128 mm[Hg] Pat Crook RN [facility] Work Phone: Comment on above: Patient Position: Sitting; Cuff Location : Left Arm; Cuff Size: Large 07-22-2011 08:25-0400 BSA (Body Surface Area) 1.44 m2 Pat Crook RN [facility] Work Phone: 07-22-2011 08:25-0400 Height 150.5 cm Pat Crook RN [facility] Work Phone: 07-22-2011 08:25-0400 Pulse (Heart Rate) 60 /min Pat Crook RN [facility] Work Phone: Comment on above: Pattern: Regular 07-22-2011 08:25-0400 Respiratory Rate 20 /min Pat Crook RN [facility] Work Phone: Comment on above: Pattern: Unlabored 07-22-2011 08:25-0400 Weight 50.41 kg Meghna Gregory [facility] Work Phone: 07-21-2011 08:52-0400 BMI (Body Mass Index) 22.26 kg/m2 Pat Crook RN [facility] Work Phone: 07-21-2011 08:52-0400 Body Temperature 97.2 [degF] Pat Crook RN [facility] Work Phone: Comment on above: Method: Oral 07-21-2011 08:52-0400 Body weight 50.41 kg Pat Crook RN [facility] Work Phone: 07-21-2011 08:52-0400 BP Diastolic 80 mm[Hg] Pat Crook RN [facility] Work Phone: Comment on above: Patient Position: Sitting; Cuff Location : Left Arm; Cuff Size: Large 07-21-2011 08:52-0400 BP Systolic 132 mm[Hg] Pat Crook RN [facility] Work Phone: Comment on above: Patient Position: Sitting; Cuff Location : Left Arm; Cuff Size: Large 07-21-2011 08:52-0400 BSA (Body Surface Area) 1.44 m2 Pat Crook RN [facility] Work Phone: 07-21-2011 08:52-0400 Height 150.5 cm Pat Crook RN [facility] Work Phone: 07-21-2011 08:52-0400 Pulse (Heart Rate) 60 /min Pat Crook RN [facility] Work Phone: Comment on above: Pattern: Regular 07-21-2011 08:52-0400 Respiratory Rate 18 /min Pat Crook RN [facility] Work Phone: Comment on above: Pattern: Unlabored 07-21-2011 08:52-0400 Weight 50.41 kg Meghna Gregory [facility] Work Phone: 07-20-2011 09:48-0400 BMI (Body Mass Index) 22.26 kg/m2 Pat Crook RN [facility] Work Phone: 07-20-2011 09:48-0400 Body Temperature 97 [degF] Pat Crook RN [facility] Work Phone: Comment on above: Method: Oral 07-20-2011 09:48-0400 Body weight 50.41 kg Pat Crook RN [facility] Work Phone: 07-20-2011 09:48-0400 BP Diastolic 70 mm[Hg] Pat Crook RN [facility] Work Phone: Comment on above: Patient Position: Sitting; Cuff Location : Left Arm; Cuff Size: Large 07-20-2011 09:48-0400 BP Systolic 102 mm[Hg] Pat Crook RN [facility] Work Phone: Comment on above: Patient Position: Sitting; Cuff Location : Left Arm; Cuff Size: Large 07-20-2011 09:48-0400 BSA (Body Surface Area) 1.44 m2 Pat Crook RN [facility] Work Phone: 07-20-2011 09:48-0400 Height 150.5 cm Pat Crook RN [facility] Work Phone: 07-20-2011 09:48-0400 Pulse (Heart Rate) 64 /min Pat Crook RN [facility] Work Phone: Comment on above: Pattern: Regular 07-20-2011 09:48-0400 Respiratory Rate 20 /min Pat Crook RN [facility] Work Phone: Comment on above: Pattern: Unlabored 07-20-2011 09:48-0400 Weight 50.41 kg Meghna Gregory [facility] Work Phone: 12-03-2010 10:36-0500 BMI (Body Mass Index) 22.03 kg/m2 Wendy Ibanezriaz [facility] Work Phone: 12-03-2010 10:36-0500 Body Temperature 96.1 [degF] Wendy Karine [facility] Work Phone: 12-03-2010 10:36-0500 Body weight 49.9 kg Wendy Karine [facility] Work Phone: 12-03-2010 10:36-0500 BP Diastolic 80 mm[Hg] Wendy Karine [facility] Work Phone: Comment on above: Patient Position: Sitting; Cuff Location : Left Arm; Cuff Size: Large 12-03-2010 10:36-0500 BP Systolic 128 mm[Hg] Wendy Karine [facility] Work Phone: Comment on above: Patient Position: Sitting; Cuff Location : Left Arm; Cuff Size: Large 12-03-2010 10:36-0500 BSA (Body Surface Area) 1.43 m2 Wendy Karine [facility] Work Phone: 12-03-2010 10:36-0500 Height 150.5 cm Wendy Karine [facility] Work Phone: 12-03-2010 10:36-0500 Weight 49.9 kg Meghna Gregory [facility] Work Phone: 11-19-2010 10:37-0500 Body Temperature 97.2 [degF] Pamela Humphrey LPN [facility] Work Phone: Comment on above: Method: Oral 11-19-2010 10:37-0500 Body weight 49.67 kg Pamela Humphrey LPN [facility] Work Phone: 11-19-2010 10:37-0500 BP Diastolic 72 mm[Hg] Pamela Kam [employer] [facility] Work Phone: Comment on above: Patient Position: Sitting; Cuff Location : Left Arm; Cuff Size: Standard 11-19-2010 10:37-0500 BP Systolic 122 mm[Hg] Pamela Humphrey [employer] [facility] Work Phone: Comment on above: Patient Position: Sitting; Cuff Location : Left Arm; Cuff Size: Standard 11-19-2010 10:37-0500 Pulse (Heart Rate) 70 /min Pamela Humphrey [employer] [facility] Work Phone: Comment on above: Pattern: Regular 11-19-2010 10:37-0500 Respiratory Rate 17 /min Pamela Humphrey [employer] [facility] Work Phone: Comment on above: Pattern: Unlabored 11-19-2010 10:37-0500 Weight 49.67 kg Meghna Gregory [facility] Work Phone: 09-23-2010 09:36-0500 Body Temperature 95.9 [degF] Gini Hluszti [employer] [facility] Work Phone: Comment on above: Method: Oral 09-23-2010 09:36-0500 Body weight 49.67 kg Gini Hluszti [employer] [facility] Work Phone: 09-23-2010 09:36-0500 BP Diastolic 70 mm[Hg] Gini Hluszti [employer] [facility] Work Phone: Comment on above: Patient Position: Sitting; Cuff Location : Left Arm; Cuff Size: Standard 09-23-2010 09:36-0500 BP Systolic 102 mm[Hg] Gini Hluszti [employer] [facility] Work Phone: Comment on above: Patient Position: Sitting; Cuff Location : Left Arm; Cuff Size: Standard 09-23-2010 09:36-0500 Pulse (Heart Rate) 64 /min Gini Hluszti [employer] [facility] Work Phone: Comment on above: Pattern: Regular 09-23-2010 09:36-0500 Respiratory Rate 16 /min Gini Hluszti [employer] [facility] Work Phone: Comment on above: Pattern: Unlabored 09-23-2010 09:36-0500 Weight 49.67 kg Meghna Gregory [facility] Work Phone: 07-21-2010 09:17-0400 Body weight 49.67 kg Pat Crook RN [facility] Work Phone: 07-21-2010 09:17-0400 BP Diastolic 70 mm[Hg] Pat Crook RN [facility] Work Phone: Comment on above: Patient Position: Standing; Cuff Locatio n: Left Arm; Cuff Size: Standard 07-21-2010 09:17-0400 BP Systolic 128 mm[Hg] Pat Crook RN [facility] Work Phone: Comment on above: Patient Position: Standing; Cuff Locatio n: Left Arm; Cuff Size: Standard 07-21-2010 09:17-0400 Pulse (Heart Rate) 68 /min Pat Crook RN [facility] Work Phone: Comment on above: Pattern: Regular 07-21-2010 09:17-0400 Respiratory Rate 20 /min Pat Crook RN [facility] Work Phone: Comment on above: Pattern: Unlabored 07-21-2010 09:17-0400 Weight 49.67 kg Meghna Gregory [facility] Work Phone: 08-24-2009 10:34-0500 Body weight 49.53 kg aPt Crook RN [facility] Work Phone: 08-24-2009 10:34-0500 BP Diastolic 78 mm[Hg] Pat Crook RN [facility] Work Phone: Comment on above: Patient Position: Sitting; Cuff Location : Left Arm; Cuff Size: Large 08-24-2009 10:34-0500 BP Systolic 122 mm[Hg] Pat Crook RN [facility] Work Phone: Comment on above: Patient Position: Sitting; Cuff Location : Left Arm; Cuff Size: Large 08-24-2009 10:34-0500 Head Circumference 0 cm Meghna Gregory [facility] Work Phone: 08-24-2009 10:34-0500 Head Occipital-frontal circumference 0 cm Pat Crook RN [facility]; [facility] Work Phone: 08-24-2009 10:34-0500 Height 0 cm Pat Crook RN [facility] Work Phone: 08-24-2009 10:34-0500 Pulse (Heart Rate) 72 /min Pat Crook RN [facility] Work Phone: Comment on above: Pattern: Regular 08-24-2009 10:34-0500 Respiratory Rate 20 /min Pat Crook RN [facility] Work Phone: Comment on above: Pattern: Unlabored 08-24-2009 10:34-0500 Weight 49.53 kg Meghna Gregory [facility] Work Phone: 02-04-2009 10:45-0400 Body Temperature 98.3 [degF] [facility] Work Phone: Comment on above: Method: Oral 02-04-2009 10:45-0400 Body weight 50.46 kg Flor [facility] Work Phone: 02-04-2009 10:45-0400 BP Diastolic 78 mm[Hg] [facility] Work Phone: Comment on above: Patient Position: Sitting; Cuff Location : Left Arm; Cuff Size: Standard 02-04-2009 10:45-0400 BP Systolic 112 mm[Hg] [facility] Work Phone: Comment on above: Patient Position: Sitting; Cuff Location : Left Arm; Cuff Size: Standard 02-04-2009 10:45-0400 Head Circumference 0 cm Meghna Gregory [facility] Work Phone: 02-04-2009 10:45-0400 Head Occipital-frontal circumference 0 cm Flor [facility]; [facility] Work Phone: 02-04-2009 10:45-0400 Height 0 cm Flor [facility] Work Phone: 02-04-2009 10:45-0400 Pulse (Heart Rate) 84 /min Flor [facility] Work Phone: Comment on above: Pattern: Regular 02-04-2009 10:45-0400 Respiratory Rate 16 /min Flor [facility] Work Phone: Comment on above: Pattern: Unlabored 02-04-2009 10:45-0400 Weight 50.46 kg Meghna Gregory [facility] Work Phone: 10-21-2008 08:08-0500 Body Temperature 96.8 [degF] [facility] Work Phone: Comment on above: Method: Oral 10-21-2008 08:08-0500 Body weight 0 kg [facility] Work Phone: 10-21-2008 08:08-0500 BP Diastolic 68 mm[Hg] [facility] Work Phone: Comment on above: Patient Position: Sitting; Cuff Location : Right Arm; Cuff Size: Standard 10-21-2008 08:08-0500 BP Systolic 120 mm[Hg] [facility] Work Phone: Comment on above: Patient Position: Sitting; Cuff Location : Right Arm; Cuff Size: Standard 10-21-2008 08:08-0500 Head Circumference 0 cm Meghna Gregory [facility] Work Phone: 10-21-2008 08:08-0500 Head Occipital-frontal circumference 0 cm [facility]; [facility] Work Phone: 10-21-2008 08:08-0500 Height 0 cm [facility] Work Phone: 10-21-2008 08:08-0500 Pulse (Heart Rate) 80 /min [facility] Work Phone: Comment on above: Pattern: Regular 10-21-2008 08:08-0500 Respiratory Rate 18 /min [facility] Work Phone: Comment on above: Pattern: Unlabored 10-21-2008 08:08-0500 Weight 0 kg Meghna Gregory [facility] Work Phone: 08-20-2008 13:25-0500 Body weight 50.46 kg Pat Crook RN [facility] Work Phone: 08-20-2008 13:25-0500 BP Diastolic 64 mm[Hg] Pat Crook RN [facility] Work Phone: Comment on above: Patient Position: Sitting; Cuff Location : Right Arm; Cuff Size: Standard 08-20-2008 13:25-0500 BP Systolic 118 mm[Hg] Pat Crook RN [facility] Work Phone: Comment on above: Patient Position: Sitting; Cuff Location : Right Arm; Cuff Size: Standard 08-20-2008 13:25-0500 Head Circumference 0 cm Meghna Gregory [facility] Work Phone: 08-20-2008 13:25-0500 Head Occipital-frontal circumference 0 cm Pat Crook RN [facility]; [facility] Work Phone: 08-20-2008 13:25-0500 Height 0 cm Pat Crook RN [facility] Work Phone: 08-20-2008 13:25-0500 Pulse (Heart Rate) 60 /min Pat Crook RN [facility] Work Phone: Comment on above: Pattern: Regular 08-20-2008 13:25-0500 Respiratory Rate 20 /min Pat Crook RN [facility] Work Phone: Comment on above: Pattern: Unlabored 08-20-2008 13:25-0500 Weight 50.46 kg Meghna Gregory [facility] Work Phone: 05-30-2008 09:11-0400 Body Temperature 98.1 [degF] Ammy Ortiz RN [facility] Work Phone: Comment on above: Method: Oral 05-30-2008 [id number]:110400 Body weight 0 kg Ammy Ortiz RN [facility] Work Phone: 05-30-2008 09:11-0400 BP Diastolic 70 mm[Hg] Ammy Ortiz RN [facility] Work Phone: Comment on above: Patient Position: Sitting; Cuff Location : Left Arm; Cuff Size: Standard 05-30-2008 09:11-0400 BP Systolic 122 mm[Hg] Ammy Ortiz RN [facility] Work Phone: Comment on above: Patient Position: Sitting; Cuff Location : Left Arm; Cuff Size: Standard 05-30-2008 09:11-0400 Head Circumference 0 cm Meghna Gregory [facility] Work Phone: 05-30-2008 09:11-0400 Head Occipital-frontal circumference 0 cm Ammy Ortiz RN [facility]; [facility] Work Phone: 05-30-2008 09:11-0400 Height 0 cm Ammy Ortiz RN [facility] Work Phone: 05-30-2008 09:11-0400 Pulse (Heart Rate) 64 /min Ammy Ortiz RN [facility] Work Phone: Comment on above: Pattern: Regular 05-30-2008 09:11-0400 Respiratory Rate 18 /min Ammy Ortiz RN [facility] Work Phone: Comment on above: Pattern: Unlabored 05-30-2008 09:11-0400 Weight 0 kg Meghna Gregory [facility] Work Phone: 05-29-2008 08:57-0400 Body weight 50.01 kg Pat Crook RN [facility] Work Phone: 05-29-2008 08:57-0400 BP Diastolic 64 mm[Hg] Pat Crook RN [facility] Work Phone: Comment on above: Patient Position: Sitting; Cuff Location : Left Arm; Cuff Size: Standard 05-29-2008 08:57-0400 BP Systolic 128 mm[Hg] Pat Crook RN [facility] Work Phone: Comment on above: Patient Position: Sitting; Cuff Location : Left Arm; Cuff Size: Standard 05-29-2008 08:57-0400 Head Circumference 0 cm Meghna Gregory [facility] Work Phone: 05-29-2008 08:57-0400 Head Occipital-frontal circumference 0 cm Pat Crook RN [facility]; [facility] Work Phone: 05-29-2008 08:57-0400 Height 0 cm Pat Crook RN [facility] Work Phone: 05-29-2008 08:57-0400 Pulse (Heart Rate) 64 /min Pat Crook RN [facility] Work Phone: Comment on above: Pattern: Regular 05-29-2008 08:57-0400 Respiratory Rate 16 /min Pat Crook RN [facility] Work Phone: Comment on above: Pattern: Unlabored 05-29-2008 08:57-0400 Weight 50.01 kg Meghna Gregory [facility] Work Phone: 05-28-2008 08:49-0400 Body weight 50.01 kg Pat Crook RN [facility] Work Phone: 05-28-2008 08:49-0400 BP Diastolic 60 mm[Hg] Pat Crook RN [facility] Work Phone: Comment on above: Patient Position: Sitting; Cuff Location : Left Arm; Cuff Size: Standard 05-28-2008 08:49-0400 BP Systolic 102 mm[Hg] Pat Crook RN [facility] Work Phone: Comment on above: Patient Position: Sitting; Cuff Location : Left Arm; Cuff Size: Standard 05-28-2008 08:49-0400 Head Circumference 0 cm Meghna Gregory [facility] Work Phone: 05-28-2008 08:49-0400 Head Occipital-frontal circumference 0 cm Pat Crook RN [facility]; [facility] Work Phone: 05-28-2008 08:49-0400 Height 0 cm Pat Crook RN [facility] Work Phone: 05-28-2008 08:49-0400 Pulse (Heart Rate) 60 /min Pat Crook RN [facility] Work Phone: Comment on above: Pattern: Regular 05-28-2008 08:49-0400 Respiratory Rate 16 /min Pat Crook RN [facility] Work Phone: Comment on above: Pattern: Unlabored 05-28-2008 08:49-0400 Weight 50.01 kg Meghna Gregory [facility] Work Phone: 05-27-2008 08:53-0400 Body weight 50.01 kg Pat Crook RN [facility] Work Phone: 05-27-2008 08:53-0400 BP Diastolic 80 mm[Hg] Pat Crook RN [facility] Work Phone: Comment on above: Patient Position: Sitting; Cuff Location : Left Arm; Cuff Size: Standard 05-27-2008 08:53-0400 BP Systolic 110 mm[Hg] Pat Crook RN [facility] Work Phone: Comment on above: Patient Position: Sitting; Cuff Location : Left Arm; Cuff Size: Standard 05-27-2008 08:53-0400 Head Circumference 0 cm Meghna Gregory [facility] Work Phone: 05-27-2008 08:53-0400 Head Occipital-frontal circumference 0 cm Pat Crook RN [facility]; [facility] Work Phone: 05-27-2008 08:53-0400 Height 0 cm Pat Crook RN [facility] Work Phone: 05-27-2008 08:53-0400 Pulse (Heart Rate) 80 /min Pat Crook RN [facility] Work Phone: Comment on above: Pattern: Regular 05-27-2008 08:53-0400 Respiratory Rate 16 /min Pat Crook RN [facility] Work Phone: Comment on above: Pattern: Unlabored 05-27-2008 08:53-0400 Weight 50.01 kg Meghna Gregory [facility] Work Phone: 05-26-2008 09:00-0400 Body weight 50.01 kg Pat Crook RN [facility] Work Phone: 05-26-2008 09:00-0400 BP Diastolic 82 mm[Hg] Pat Crook RN [facility] Work Phone: Comment on above: Patient Position: Sitting; Cuff Location : Left Arm; Cuff Size: Standard 05-26-2008 09:00-0400 BP Systolic 120 mm[Hg] Pat Crook RN [facility] Work Phone: Comment on above: Patient Position: Sitting; Cuff Location : Left Arm; Cuff Size: Standard 05-26-2008 09:00-0400 Head Circumference 0 cm Meghna Boltonon [facility] Work Phone: 05-26-2008 09:00-0400 Head Occipital-frontal circumference 0 cm Pat Crook RN [facility]; [facility] Work Phone: 05-26-2008 09:00-0400 Height 0 cm Pat Crook RN [facility] Work Phone: 05-26-2008 09:00-0400 Pulse (Heart Rate) 60 /min Pat Crook RN [facility] Work Phone: Comment on above: Pattern: Regular 05-26-2008 09:00-0400 Respiratory Rate 16 /min Pat Crook RN [facility] Work Phone: Comment on above: Pattern: Unlabored 05-26-2008 09:00-0400 Weight 50.01 kg Meghna Gregory [facility] Work Phone: 02-07-2007 08:32-0400 Body Temperature 97.6 [degF] Ammy Ortiz RN [facility] Work Phone: Comment on above: Method: Oral 02-07-2007 08:32-0400 Body weight 0 kg Ammy Ortiz RN [facility] Work Phone: 02-07-2007 08:32-0400 BP Diastolic 62 mm[Hg] Ammy Ortiz RN [facility] Work Phone: Comment on above: Patient Position: Sitting; Cuff Location : Left Arm; Cuff Size: Standard 02-07-2007 08:32-0400 BP Systolic 96 mm[Hg] Ammy Ortiz RN [facility] Work Phone: Comment on above: Patient Position: Sitting; Cuff Location : Left Arm; Cuff Size: Standard 02-07-2007 08:32-0400 Head Circumference 0 cm Meghna Gregory [facility] Work Phone: 02-07-2007 08:32-0400 Head Occipital-frontal circumference 0 cm Ammy Ortiz RN [facility]; [facility] Work Phone: 02-07-2007 08:32-0400 Height 0 cm Ammy Ortiz RN [facility] Work Phone: 02-07-2007 08:32-0400 Pulse (Heart Rate) 84 /min Ammy Ortiz RN [facility] Work Phone: Comment on above: Pattern: Regular 02-07-2007 08:32-0400 Respiratory Rate 16 /min Ammy Ortiz RN [facility] Work Phone: Comment on above: Pattern: Unlabored 02-07-2007 08:32-0400 Weight 0 kg Meghna Gregory [facility] Work Phone: 01-30-2007 08:05-0400 Body Temperature 98 [degF] Ammy Ortiz RN [facility] Work Phone: Comment on above: Method: Oral 01-30-2007 08:05-0400 Body weight 50.35 kg Ammy Ortiz RN [facility] Work Phone: 01-30-2007 08:05-0400 BP Diastolic 70 mm[Hg] Ammy Ortiz RN [facility] Work Phone: Comment on above: Patient Position: Sitting; Cuff Location : Left Arm; Cuff Size: Standard 01-30-2007 08:05-0400 BP Systolic 102 mm[Hg] Ammy Ortiz RN [facility] Work Phone: Comment on above: Patient Position: Sitting; Cuff Location : Left Arm; Cuff Size: Standard 01-30-2007 08:05-0400 Head Circumference 0 cm Meghna Gregory [facility] Work Phone: 01-30-2007 08:05-0400 Head Occipital-frontal circumference 0 cm Ammy Ortiz RN [facility]; [facility] Work Phone: 01-30-2007 08:05-0400 Height 0 cm Ammy Ortiz RN [facility] Work Phone: 01-30-2007 08:05-0400 Pulse (Heart Rate) 72 /min Ammy Ortiz RN [facility] Work Phone: Comment on above: Pattern: Regular 01-30-2007 08:05-0400 Respiratory Rate 16 /min Ammy Ortiz RN [facility] Work Phone: Comment on above: Pattern: Unlabored 01-30-2007 08:05-0400 Weight 50.35 kg Meghna Gregory [facility] Work Phone: 12-27-2006 10:43-0400 Body Temperature 98.5 [degF] Meghna Gregory [facility] Work Phone: Comment on above: Method: Undefined 12-27-2006 10:43-0400 Body weight 51.43 kg Meghna Gregory [facility] Work Phone: 12-27-2006 10:43-0400 BP Diastolic 60 mm[Hg] Meghna Gregory [facility] Work Phone: Comment on above: Patient Position: Undefined; Cuff Locati on: Undefined; Cuff Size: Undefined 12-27-2006 10:43-0400 BP Systolic 110 mm[Hg] Meghna Gregory [facility] Work Phone: Comment on above: Patient Position: Undefined; Cuff Locati on: Undefined; Cuff Size: Undefined 12-27-2006 10:43-0400 Head Circumference 0 cm Meghna Gregory [facility] Work Phone: 12-27-2006 10:43-0400 Head Occipital-frontal circumference 0 cm Meghna Gregory DO Work Phone: [facility]; [facility] Work Phone: 12-27-2006 10:43-0400 Height 0 cm Meghna Gregory [facility] Work Phone: 12-27-2006 10:43-0400 Pulse (Heart Rate) 76 /min Meghna Gregory [facility] Work Phone: Comment on above: Pattern: Regular 12-27-2006 10:43-0400 Respiratory Rate 16 /min Meghna Gregory [facility] Work Phone: Comment on above: Pattern: Undefined 12-27-2006 10:43-0400 Weight 51.43 kg Meghna Gregory [facility] Work Phone: 11-28-2006 08:47-0500 Body Temperature 98.4 [degF] Lo Rueda LPN [facility] Work Phone: Comment on above: Method: Undefined 11-28-2006 08:47-0500 Body weight 0 kg Lo Rueda LPN [facility] Work Phone: 11-28-2006 08:47-0500 BP Diastolic 66 mm[Hg] Lo Rueda LPN [facility] Work Phone: Comment on above: Patient Position: Sitting; Cuff Location : Left Arm; Cuff Size: Standard 11-28-2006 08:47-0500 BP Systolic 98 mm[Hg] Lo Rueda LPN [facility] Work Phone: Comment on above: Patient Position: Sitting; Cuff Location : Left Arm; Cuff Size: Standard 11-28-2006 08:47-0500 Head Circumference 0 cm Meghna Bri [facility] Work Phone: 11-28-2006 08:47-0500 Head Occipital-frontal circumference 0 cm Lo Rueda LPN [facility]; [facility] Work Phone: 11-28-2006 08:47-0500 Height 0 cm Lo Rueda LPN [facility] Work Phone: 11-28-2006 08:47-0500 Pulse (Heart Rate) 100 /min Lo Rueda LPN [facility] Work Phone: Comment on above: Pattern: Regular 11-28-2006 08:47-0500 Respiratory Rate 20 /min Lo Rueda LPN [facility] Work Phone: Comment on above: Pattern: Undefined 11-28-2006 08:47-0500 Weight 0 kg Meghna Gregory [facility] Work Phone: Encounters Encounter Date Encounter Type Care Provider Facility Start: 04-10-2025 ambulatory Meghna Bri Facilit y:[facility] Start: 03-29-2025 ambulatory Meghna Bri Facilit y:[facility] Start: 03-25-2025 End: 03-25-2025 Patient encounter procedure Bety DON -[facility] Work Phone: Start: 03-25-2025 End: 03-25-2025 Patient encounter status Bety Torres [employer]-[facility] Start: 03-25-2025 End: 03-25-[address] Meghna Gregory DO Work Phone: [facility] Work Phone: Start: 02-03-2025 End: 02-03-[address] Meghna Gregory DO Work Phone: [facility] Work Phone: Start: 02-03-2025 End: 02-03-[address] Marisel Terry MD -Laboratory, [place] Work Phone: Start: 02-03-2025 End: 02-03-2025 ambulatory Meghna Gregory Facility:[facility] Start: 12-16-2024 ambulatory Meghna Gregory Facilit y:[facility] Start: 11-01-2024 End: 11-01-[address] Marisel Terry MD -Laboratory, [place] Work Phone: Start: 11-01-2024 End: 11-01-2024 ambulatory Meghna Gregory Facility:[facility] Start: 09-02-2024 End: 09-02-2024 ambulatory Meghnalexi Gregory Facility:[facility] Start: 07-26-2024 End: 07-26-2024 ambulatory Justin Franco Facility:[facility] Start: 07-04-2024 End: 07-04-2024 ambulatory Meghna Gregory Facility:[facility] Start: 05-15-2024 End: 05-15-2024 ambulatory Marisel Terry Facility:[facility] Start: 04-09-2024 End: 04-09-2024 ambulatory Bety Torres Facility:[facility] Start: 01-26-2024 End: 01-26-[address] Meghna Gregory Work Phone: [facility] Work Phone: Start: 01-26-2024 End: 01-26-[address] Meghna Gregory Work Phone: [facility] Work Phone: Start: 01-12-2024 Non-patient / Non-visit Dr. Meghna Gregory Work Phone: [facility] Start: 01-12-2024 End: 01-12-2024 Admission to same day surgery center Dr. Meghna Gregory Work Phone: [facility] Work Phone: Start: 01-12-2024 End: 01-12-[address] Meghna Gregory Work Phone: [facility] Work Phone: Start: 01-11-2024 End: 01-11-[address] Meghna Gregory Work Phone: [facility] Work Phone: Start: 11-15-2023 Non-patient / Non-visit Dr. Meghna Gregory Work Phone: [facility] Work Phone: Start: 08-16-2023 End: 08-16-2023 Emergency department patient visit [facility] Work Phone: Start: 08-15-2023 End: 08-15-2023 Emergency department patient visit [facility] Work Phone: Start: 07-31-2023 End: 07-31-2023 ambulatory [facility] Work Phone: Start: 07-31-2023 End: 07-31-2023 Patient encounter procedure [facility] Work Phone: Start: 05-12-2023 End: 05-16-2023 Meghna Gregory DO Work Phone: [facility] Start: 04-28-2023 Meghna alexander DO Work Phone: [facility] Start: 04-28-2023 End: 04-28-2023 Office outpatient visit 15 minutes Meghna Gregory DO Work Phone: [facility] Start: 04-06-2023 End: 04-06-[address] Meghna Gregory Work Phone: [facility] Work Phone: Start: 04-06-2023 End: 04-06-[address] Meghna Gregory Work Phone: [facility]Out[facility] Work Phone: Start: 03-30-2023 End: 03-30-[address] Meghna Gregory Work Phone: [facility] Work Phone: Start: 03-24-2023 End: 03-24-[address] Meghna Gregory Work Phone: [facility] Work Phone: Start: 03-24-2023 End: 03-24-[address] Meghna Gregory Work Phone: [facility] Start: 03-15-2023 End: 03-15-[address] Meghna Gregory Work Phone: [facility] Work Phone: Start: 03-15-2023 End: 03-15-[address] Meghna Gregory Work Phone: [facility] Start: 03-13-2023 End: 03-13-[address] Meghna Gregory Work Phone: [facility] Start: 01-23-2023 End: 01-23-[address] Meghna Gregory Work Phone: [facility] Work Phone: Start: 01-23-2023 End: 01-23-[address] Meghna Gregory Work Phone: [facility] Start: 01-09-2023 End: 01-09-[address] Meghna Gregory Work Phone: [facility] Start: 12-22-2022 End: 12-22-2022 Office outpatient visit 10 minutes Meghna Gregory DO Work Phone: [facility] Start: 12-20-2022 ambulatory Meghna Gregory DO [facility] Start: 11-30-2022 End: 11-30-2022 Office outpatient visit 15 minutes Meghna Gregory DO Work Phone: [facility] Start: 11-30-2022 Meghna alexander DO Work Phone: [facility] Start: 11-27-2022 End: 11-27-[address] Meghna Gregory Work Phone: [facility] Start: 11-23-2022 End: 11-23-2022 Emergency department patient visit [facility] Start: 07-15-2022 End: 07-15-[address] Meghna Gregory Work Phone: [facility] Work Phone: Start: 07-15-2022 End: 07-15-[address] [facility] Start: 04-28-2022 Meghna alexander DO Work Phone: [facility] Start: 03-31-2022 End: 03-31-[address] Meghna Gregory Work Phone: [facility] Start: 03-23-2022 End: 03-23-[address] Meghna Gregory Work Phone: [facility] Start: 03-14-2022 End: 03-14-2022 Meghna Gregory DO Work Phone: [facility] Start: 03-12-2022 End: 03-12-[address] Meghna Gregory Work Phone: [facility] Start: 03-07-2022 End: 03-07-[address] Meghna Gregory Work Phone: [facility] Start: 02-25-2022 End: 02-25-2022 Patient encounter procedure Meghna Gregory DO Work Phone: [facility]; [facility] Work Phone: Start: 02-25-2022 End: 02-25-2022 Periodic preventive med est patient 65yrs& older Meghna Gregory DO Work Phone: [facility] Start: 02-25-2022 Meghna alexander DO Work Phone: [facility] Start: 12-31-[address] Meghna Gregory Work Phone: [facility] Start: 11-29-2021 End: 11-29-[address] Meghna Gregory Work Phone: [facility] Start: 10-26-2021 End: 10-26-[address] Meghna Gregory Work Phone: [facility] Start: 12-03-2020 End: 12-03-2020 Office outpatient visit 10 minutes Meghna Gregory [facility] Start: 12-03-2020 Review [facility] Start: 11-18-2020 End: 11-18-2020 Patient encounter procedure Lamar Schmidt [employer] [facility]; [facility] Work Phone: Start: 11-18-2020 End: 11-18-2020 Periodic preventive med est patient 65yrs& older Meghna Gregory [facility] Start: 11-11-2020 End: 11-11-2020 Annotation/Addendum Meghna Bri [facility] Start: 11-11-2020 End: 11-11-2020 Meghna Gregory DO Work Phone: [facility] Start: 11-10-2020 End: 11-10-2020 Lab Order Meghna Bri [facility] Start: 11-10-2020 End: 11-10-2020 Meghna Gregory DO Work Phone: [facility] Start: 11-09-2020 End: 11-09-2020 Office outpatient visit 25 minutes Meghna Gregory [facility] Start: 07-27-2020 End: 07-27-2020 Patient encounter procedure Chasity Vanessa [facility]; [facility] Work Phone: Start: 07-27-2020 End: 07-27-2020 Periodic preventive med est patient 65yrs& older Meghna Gregory [facility] Start: 07-21-2020 End: 07-22-2020 Office outpatient visit 5 minutes Meghna Gregory [facility] Start: 04-23-2020 End: 04-23-2020 Office outpatient visit 25 minutes Meghna Gregory [facility] Start: 02-19-2020 End: 02-19-2020 Office outpatient visit 15 minutes Meghna Gregory [facility] Start: 02-06-2020 End: 02-06-2020 Phone Encounter Meghna Gregory [facility] Start: 02-06-2020 End: 02-06-2020 Meghna Bri DO Work Phone: [facility] Start: 02-05-2020 End: 02-05-2020 Office outpatient visit 25 minutes Meghna Gregory [facility] Start: 01-31-2020 End: 01-31-2020 Office outpatient visit 15 minutes Meghna Gregory [facility] Start: 12-30-2019 End: 12-30-2019 Office outpatient visit 15 minutes Meghna Gregory [facility] Start: 12-02-2019 End: 12-02-2019 Phone Encounter Meghna Gregory [facility] Start: 12-02-2019 End: 12-02-2019 Meghna Gregory DO Work Phone: [facility] Start: 11-01-2019 End: 11-01-2019 Lab Order Meghna Gregory [facility] Start: 11-01-2019 End: 11-01-2019 Meghna Gregory DO Work Phone: [facility] Start: 10-28-2019 End: 10-28-2019 Office outpatient visit 25 minutes Meghna Gregory [facility] Start: 09-27-2019 End: 09-27-2019 Annotation/Addendum Meghna Gregory [facility] Start: 09-27-2019 End: 09-27-2019 Meghna Gregory DO Work Phone: [facility] Start: 09-27-2019 End: 09-27-2019 Annotation/Addendum Meghna Gregory [facility] Start: 09-27-2019 End: 09-27-2019 Meghna Gregory DO Work Phone: [facility] Start: 09-27-2019 End: 09-27-2019 Office outpatient visit 15 minutes Meghna Bri [facility] Start: 02-08-2019 End: 02-08-2019 Office outpatient visit 15 minutes Meghna Gregory [facility] Start: 12-27-2018 End: 12-27-2018 Office outpatient visit 25 minutes Meghna Gregory [facility] Start: 12-27-2018 Review Meghna Gregory [facility]pre[facility] Start: 10-10-2018 End: 10-10-2018 Office outpatient visit 15 minutes Meghna Gregory [facility] Start: 10-10-2018 Review Meghna Gregory [facility] Start: 04-09-2018 End: 04-09-2018 Phone Encounter Meghna Gregory [facility] Start: 04-09-2018 End: 04-09-2018 Meghna Gregory DO Work Phone: [facility] Start: 03-13-2018 End: 03-13-2018 Office outpatient visit 25 minutes Meghna Bri [facility] Start: 02-16-2018 End: 02-16-2018 Patient encounter procedure Meghna Gregory DO Work Phone: [facility] Start: 02-16-2018 End: 02-16-2018 Phone Encounter Meghna Gregory [facility] Start: 02-16-2018 End: 02-16-2018 Meghna Gregory DO Work Phone: [facility] Start: 02-16-2018 End: 02-16-2018 Patient encounter procedure Meghna Gregory DO Work Phone: [facility] Start: 02-16-2018 End: 02-16-2018 Periodic preventive med est patient 40-64yrs Meghna Bri [facility] Start: 01-11-2018 End: 01-11-2018 Phone Encounter Meghna Bri [facility] Start: 01-11-2018 End: 01-11-2018 Meghna Gregory DO Work Phone: [facility] Start: 09-07-2017 End: 09-07-2017 Phone Encounter Meghna Bri [facility] Start: 09-07-2017 End: 09-07-2017 Meghna Gregory DO Work Phone: [facility] Start: 09-04-2017 End: 09-04-2017 Annotation/Addendum Meghna Bri [facility] Start: 09-04-2017 End: 09-04-2017 Meghna Gregory DO Work Phone: [facility] Start: 08-07-2017 End: 08-07-2017 Office outpatient visit 25 minutes Meghna Gregory [facility] Start: 07-05-2017 End: 07-05-2017 Office outpatient visit 5 minutes Meghna Bri [facility] Start: 01-30-2017 End: 01-30-2017 Office outpatient visit 15 minutes Meghna Bri [facility] Start: 11-10-2016 End: 11-10-2016 Phone Encounter Meghna Bri [facility] Start: 11-10-2016 End: 11-10-2016 Meghna Gregory DO Work Phone: [facility] Start: 08-12-2016 End: 08-12-2016 Patient encounter Meghnazain Gregory [facility] Start: 08-12-2016 End: 08-12-2016 Meghna Gregory DO Work Phone: [facility] Start: 08-11-2016 End: 08-11-2016 Patient encounter procedure Meghna Gregory DO Work Phone: [facility] Start: 08-11-2016 End: 08-11-2016 Periodic preventive med est patient 40-64yrs Meghna Gregory [facility] Start: 02-06-2015 End: 02-06-2015 Phone Encounter Meghna Gregory [facility] Start: 02-06-2015 End: 02-06-2015 Meghna Gregory DO Work Phone: [facility] Start: 01-26-2015 End: 01-26-2015 Patient encounter procedure Meghna Gregory DO Work Phone: [facility] Start: 01-26-2015 End: 01-26-2015 Periodic preventive med est patient 40-64yrs Meghna Gregory [facility] Start: 07-30-2014 End: 07-30-2014 Office outpatient visit 15 minutes Meghna Bri [facility] Start: 07-16-2014 End: 07-16-2014 Office outpatient visit 15 minutes Meghna Bri [facility] Start: 06-05-2014 End: 06-05-2014 Phone Encounter Meghna Gregory [facility] Start: 06-05-2014 End: 06-05-2014 Meghna Gregory DO Work Phone: [facility] Start: 12-23-2013 End: 12-23-2013 Office outpatient visit 15 minutes Meghna Bri [facility] Start: 12-16-2013 End: 12-16-2013 Office outpatient visit 15 minutes Meghna Gregory [facility] Start: 11-29-2013 End: 11-29-2013 Historical Summary Meghnalexi Gregory [facility] Start: 11-29-2013 End: 11-29-2013 Meghna Gregory DO Work Phone: [facility] Start: 11-25-2013 End: 11-25-2013 Patient encounter Meghnalexi Gregory [facility] Start: 11-25-2013 End: 11-25-2013 Meghna Gregory DO Work Phone: [facility] Start: 11-08-2013 End: 11-08-2013 Office outpatient visit 10 minutes Meghna Gregory [facility] Start: 09-23-2013 End: 09-23-2013 Patient encounter Meghna Gregory [facility] Start: 09-23-2013 End: 09-23-2013 Meghna Gregory DO Work Phone: [facility] Start: 08-01-2013 End: 08-01-2013 Patient encounter Meghna Gregory [facility] Start: 08-01-2013 End: 08-01-2013 Meghna Gregory DO Work Phone: [facility] Start: 05-13-2013 End: 05-13-2013 Phone Encounter Meghna Gregory [facility] Start: 05-13-2013 End: 05-13-2013 Meghna Gregory DO Work Phone: [facility] Start: 03-19-2013 End: 03-19-2013 Office outpatient visit 25 minutes Meghna Gregory [facility] Start: 11-26-2012 End: 11-26-2012 Office outpatient visit 15 minutes Meghna Gregory [facility] Start: 11-23-2012 End: 11-23-2012 Patient encounter Meghna Gregory [facility] Start: 11-23-2012 End: 11-23-2012 Meghna Gregory DO Work Phone: [facility] Start: 11-08-2012 End: 11-08-2012 Patient encounter Meghna Gregory [facility] Start: 11-08-2012 End: 11-08-2012 Meghna Gregory DO Work Phone: [facility] Start: 10-15-2012 End: 10-15-2012 Patient encounter Meghna Gregory [facility] Start: 10-15-2012 End: 10-15-2012 Meghna Gregory DO Work Phone: [facility] Start: 09-21-2012 End: 09-21-2012 Patient encounter Meghna Gregory [facility] Start: 09-21-2012 End: 09-21-2012 Meghna Bri DO Work Phone: [facility] Start: 08-09-2012 End: 08-09-2012 Patient encounter Meghna Gregory [facility] Start: 08-09-2012 End: 08-09-2012 Meghna Boltonon DO Work Phone: [facility] Start: 03-20-2012 End: 03-20-2012 Office outpatient visit 5 minutes Meghna Gregory [facility] Start: 02-06-2012 End: 02-06-2012 Patient encounter Meghna Gregory [facility] Start: 02-06-2012 End: 02-06-2012 Meghna Gregory DO Work Phone: [facility] Start: 01-06-2012 End: 01-06-2012 Patient encounter Meghna Gregory [facility] Start: 01-06-2012 End: 01-06-2012 Meghna Gregory DO Work Phone: [facility] Start: 07-22-2011 End: 07-22-2011 Patient encounter Meghna Gregory [facility] Start: 07-22-2011 End: 07-22-2011 Meghna Bri DO Work Phone: [facility] Start: 07-21-2011 End: 07-21-2011 Patient encounter Meghna Gregory [facility] Start: 07-21-2011 End: 07-21-2011 Meghna Bri DO Work Phone: [facility] Start: 07-20-2011 End: 07-20-2011 Patient encounter Meghna Gregory [facility] Start: 07-20-2011 End: 07-20-2011 Meghna Bri DO Work Phone: [facility] Start: 07-05-2011 End: 07-05-2011 Patient encounter Meghna Gregory [facility] Start: 07-05-2011 End: 07-05-2011 Meghna Bri DO Work Phone: [facility] Start: 12-03-2010 End: 12-03-2010 Nursing evaluation of patient and report Meghna Gregory [facility] Start: 12-03-2010 End: 12-03-2010 Meghna Bri DO Work Phone: [facility] Start: 11-19-2010 End: 11-19-2010 Office outpatient visit 25 minutes Meghna Gregory [facility] Start: 11-15-2010 End: 11-15-2010 Patient encounter Meghna Gregory [facility] Start: 11-15-2010 End: 11-15-2010 Meghna Gregory DO Work Phone: [facility] Start: 10-18-2010 End: 10-18-2010 Phone Encounter Meghna Gregory [facility] Start: 10-18-2010 End: 10-18-2010 Meghna Gregory DO Work Phone: [facility] Start: 10-13-2010 End: 10-13-2010 Patient encounter Meghna Gregory [facility] Start: 10-13-2010 End: 10-13-2010 Meghna Gregory DO Work Phone: [facility] Start: 09-23-2010 End: 09-23-2010 Patient encounter Meghna Gregory [facility] Start: 09-23-2010 End: 09-23-2010 Meghna Gregory DO Work Phone: [facility] Start: 07-21-2010 End: 07-21-2010 Patient encounter Meghna Gregory [facility] Start: 07-21-2010 End: 07-21-2010 Meghna Gregory DO Work Phone: [facility] Start: 07-16-2010 End: 07-19-2010 Patient encounter Meghna Gregory [facility] Start: 07-16-2010 End: 07-19-2010 Meghna Gregory DO Work Phone: [facility] Start: 08-24-2009 End: 08-24-2009 Patient encounter Meghna Gregory [facility] Start: 08-24-2009 End: 08-24-2009 Meghna Boltonon DO Work Phone: [facility] Start: 07-08-2009 End: 07-08-2009 Patient encounter Meghna Gregory [facility] Start: 07-08-2009 End: 07-08-2009 Meghna Bri DO Work Phone: [facility] Start: 02-04-2009 End: 02-04-2009 Annotation/Addendum Meghna Gregory [facility] Start: 02-04-2009 End: 02-04-2009 Meghna Gregory DO Work Phone: [facility] Start: 02-04-2009 End: 02-04-2009 Office outpatient visit 25 minutes Meghna Gregory [facility] Start: 10-21-2008 End: 10-21-2008 Office outpatient visit 15 minutes Meghna Gregory [facility] Start: 08-20-2008 End: 08-20-2008 Patient encounter Meghna Gregory [facility] Start: 08-20-2008 End: 08-20-2008 Meghna Gregory DO Work Phone: [facility] Start: 05-30-2008 End: 05-30-2008 Patient encounter Meghna Gregory [facility] Start: 05-30-2008 End: 05-30-2008 Meghna Gregory DO Work Phone: [facility] Start: 05-29-2008 End: 05-29-2008 Patient encounter Meghna Gregory [facility] Start: 05-29-2008 End: 05-29-2008 Meghna Gregory DO Work Phone: [facility] Start: 05-28-2008 End: 05-28-2008 Patient encounter Meghna Gregory [facility] Start: 05-28-2008 End: 05-28-2008 Meghna Gregory DO Work Phone: [facility] Start: 05-27-2008 End: 05-27-2008 Patient encounter Meghna Gregory [facility] Start: 05-27-2008 End: 05-27-2008 Meghna Gregory DO Work Phone: [facility] Start: 05-26-2008 End: 05-26-2008 Patient encounter Meghna Gregory [facility] Start: 05-26-2008 End: 05-26-2008 Meghna Gregory DO Work Phone: [facility] Start: 08-22-2007 End: 08-22-2007 Historical Summary Meghna Gregory [facility] Start: 08-22-2007 End: 08-22-2007 Meghna Gregory DO Work Phone: [facility] Start: 03-12-2007 End: 03-12-2007 Patient encounter Meghna Gregory [facility] Start: 03-12-2007 End: 03-12-2007 Meghna Gregory DO Work Phone: [facility] Start: 02-07-2007 End: 02-07-2007 Office outpatient visit 10 minutes Meghna Bri [facility] Start: 01-30-2007 End: 01-30-2007 Office outpatient visit 25 minutes Meghna Bri [facility] Start: 12-27-2006 End: 12-27-2006 Patient encounter Meghna Gregory [facility] Start: 12-27-2006 End: 12-27-2006 Meghna Gregory DO Work Phone: [facility] Start: 12-26-2006 End: 12-26-2006 Historical Summary Meghna Gregory [facility] Start: 12-26-2006 End: 12-26-2006 Meghna Gregory DO Work Phone: [facility] Start: 11-28-2006 End: 11-28-2006 Office outpatient visit 15 minutes Meghna Gregory [facility] Patient encounter procedure [facility]; [facility] Work Phone: Patient encounter procedure [facility]; [facility] Work Phone: Patient encounter procedure [facility]; [facility] Work Phone: Procedures Date Procedure Procedure Detail Performing Clinician Start: 11-01-2024 Measurement of renal function Dr. Meghna Gregory DO Work Phone: Comment on above: GFR Calc Start: 01-12-[address] Meghna Gregory Work Phone: Start: 08-16-2023 CT of head without contrast Start: 08-15-2023 CT cervical spine without contrast Start: 08-15-2023 CT of head without contrast Start: 04-06-2023 Dual energy X-ray absorptiometry Dr. Meghna Gregory Work Phone: Start: 04-06-2023 End: 04-06-2023 Procedure Note: See Note; NOTES: [facility] Imaging Services [address] [place] [address] Dexa Bone Density Study MR#: [id number] Acct: [id number] Name: MONSE BLEVINS Rep #: [id number] : 1955 F 68 From: Antoine esteban MD PCP: Dr. Meghna Gregory, DO Status: REG CLI Study: Dexa Bone Density Study Date of Exam: 04/06/23 Exam# [id number] Ordering Dr: Bety Torres NP HOSPICE CLINICAL MARKETER -C STUDY: DUAL ENERGY X-RAY ABSORPTIOMETRY / DXA REASON FOR EXAM: Female, 68 years old. Osteoporosis TECHNIQUE: Bone Mineral Density (BMD) measurements of lumbar spine and bilateral hips were obtained. COMPARISON: Comparison is made with prior study March 30, 2021. FINDINGS: Lumbar Spine (L1-L4): g/cm2 (0.820) / T-score (-2.1) / Z-score (-0.1) Findings are suggestive of osteopenia with a high fracture risk. Left Femur Total: g/cm2 (0.715) / T-score (-1.9) / Z-score (-0.5) Left Femoral Neck: g/cm2 (0.681) / T-score (-1.5) / Z-score (0.2) Right Femur Total: g/cm2 (0.651) / T-score (-2.4) / Z-score (-1.0) Right Femoral Neck: g/cm2 (0.645) / T-score (-1.8) / Z-score (-0.2) The T-Scores on the most recent prior examination were: Lumbar Spine (L1-L4): There has been worsening of bone density since the previous examination. Left Femur Total: which represents a worsening of 6%. Right Femur Total: which represents a worsening of 7.3%. BD/Dexa Bone Density Study IMPRESSION: The patient is considered osteopenic as outlined below according to World Jet Organization (WHO) criteria with a high fracture risk. There has been worsening of bone density since the previous examination. Reference Information: The T-score is the number of standard deviations above or below the standard which is normal for young adults at their peak bone mineral density. The World Health Organization (WHO) interprets the T-scores as follows: Above -1 Normal bone density Between -1 and -2.5 Osteopenia Equal to / or below -2.5 Osteoporosis As a practical clinical guideline, osteopenia may be graded as follows: Mild -1 through -1.5 Moderate -1.6 through -2.0 Severe -2.1 through -2.4 The Z-score is the number of standard deviations above or below age-matched controls. A Z-score of less than -1.5 would be considered abnormal. References: 1. NIH Osteoporosis and Related Bone Diseases www osteo.org 2. International Society for Clinical Densitometry www iscd.org 3. National Osteoporosis Foundation www nof.org Electronically Signed: Antoine Holbrook MD at 14:55 EDT Reading Location ID and State: [facility] / [place] , Service support , CC: FLORENCIA Torres; Dr. Meghna Gregory DO Equipment Technician: Signed Meghna Gregory DO Work Phone: Start: 04-06-[address] Meghna alexander Work Phone: Start: 04-06-2023 End: 04-06-2023 Procedure Note: See Note; NOTES: [facility] Imaging Services [address] [place] [address] SCRN MAMM (CAD)W/MARCIANO BILAT MR#: [id number] Acct: [id number] Name: MONSE BLEVINS Rep #: [id number] : 1955 F 68 From: Antoine esteban MD PCP: Dr. Meghna Gregory, DO Status: [facility] Study: SCRN MAMM (CAD)W/MARCIANO BILAT Date of Exam: 03/24 Exam# [id number] Ordering Dr: Bety Torres HOSPICE CLINICAL MARKETER HOSPICE CLINICAL MARKETER -C MAMMOGRAPHY - BILATERAL SCREENING REASON FOR EXAM: Female, 68 years old. Routine annual screening examination. PERTINENT HISTORY: Non-contributory. TECHNIQUE: Digital bilateral breast marciano (3D mammographic acquisition) in the CC and MLO projections. 2-D mediolateral oblique (MLO) and craniocaudad (CC) views of both breasts were obtained. CAD: Full Field Digital Mammography with Computer Added Detection was performed. COMPARISON: Comparison is made with prior examination dated March 31, 2022 and March 30, 2021. FINDINGS: Breast Composition: The breasts are heterogeneously dense, which may obscure small masses. There are no dominant masses or suspicious calcifications. Stable small benign-appearing bilateral axillary lymph nodes. No other significant abnormalities are identified. There has been no significant change since the prior study. BI/SCRN MAMM (CAD)W/MARCIANO BILAT IMPRESSION: Stable bilateral screening mammogram. Yearly follow-up mammogram recommended. (A) ASSESSMENT CATEGORY: BIRADS Category 2: Benign. A letter regarding these results will be sent to the patient by the facility within 30 days. Approximately 10% of breast cancers are not detected by mammography. A normal mammogram should not delay biopsy of a clinically suspicious abnormality. [id number] Electronically Signed: Antoine Holbrook MD at 10:19 EDT Reading Location ID and State: [facility] / [place] , Service support , CC: FLORENCIA Torres; Dr. Meghna Gregory DO Equipment Technician: Signed Meghna Gregory DO Work Phone: Start: 03-30-2023 End: 03-30-2023 Procedure Note: See Note; NOTES: [facility] [address] [place] [address] OFFICE VISIT Date of Service: 03/30/23 MR#: [id number] Acct: [id number] Name: MONSE BLEVINS Rep #: [id number] : 1955 Provider: Dr. Dhiraj estes MD Age/Sex: 68/F Location: [facility] Status: Signed Intake Vital Signs 11/23/22 07:57 03/13/23 14:26 03/30/23 09:34 Height 4 ft 11 in 4 ft 11 in 4 ft 11 in Weight: 98 lb BMI 19.8 BP 95/68 Blood Pressure Location Rt brachial Position Sitting Respiration 16 Pulse 80 Pulse Source Monitor Temp 96.2 F L Temp Source Tympanic Pulse Oximetry (%) 95 Oxygen Delivery Method room air Intake Visit Reasons: YEARLY THYROID U/S 03/24 Chief Complaint: Annual Allergies Sulfa (Sulfonamide Antibiotics) Allergy (Intermediate, Verified 03/30/23 09:35) Hives Medications gabapentin 100 mg capsule 100 mg PO BIDCM nerve pain 01/30/17 [History Confirmed 03/30/23] gabapentin 300 mg capsule 300 mg PO QHS MS 01/30/17 [History Confirmed 03/30/23] alendronate 35 mg tablet 35 mg PO TOBIAS bone health 06/06/19 [History Confirmed 03/30/23] cholecalciferol (vitamin D3) 50 mcg (2,000 unit) tablet 2,000 unit PO DAILY bone health 06/06/19 [History Confirmed 03/30/23] calcium carbonate 500 mg calcium (1,250 mg) chewable tablet (Calci-Chew) 500 mg PO DAILY 10/07/19 [History Confirmed 03/30/23] fluticasone propionate 50 mcg/actuation nasal spray,suspension 1 spray NASAL DAILY 04/30/20 [History Confirmed 03/30/23] ocrelizumab 30 mg/mL intravenous solution 300 mg IV .TWICE YEARLY MS 04/30/20 [History Confirmed 03/30/23] doxycycline monohydrate 50 mg capsule 50 mg PO DAILY 12/31/21 [History Confirmed 03/30/23] baclofen 10 mg tablet 10 mg PO TID MS 03/07/22 [History Confirmed 03/30/23] methylphenidate HCl 5 mg tablet (Ritalin) 5 mg PO DAILY PRN Anxiety 03/07/22 [History Confirmed 03/30/23] estradiol 0.01% (0.1 mg/gram) vaginal cream (Estrace) See Rx Instructions vaginal .COMPLEX #42.5 grams 07/14/22 [Rx Confirmed 03/30/23] PFS Medical History Back pain Diverticulitis of large intestine with abscess History of diverticulitis History of multiple sclerosis HTN (hypertension) Osteoarthritis Osteoporosis Peritonitis (acute) generalized Sepsis Sinus tachycardia by electrocardiogram Thyroid nodule Surgical History History of appendectomy History of colonoscopy ( 2013) History of tonsillectomy History of tubal ligation Status post colectomy Family History Mother Thyroid disorder Grandfather Colon cancer Daughter Cancer skin Other Diabetes Social History household members: spouse number of children: 2 current occupational status: retired history of recent travel: No sexually active: Yes Smoking Status: Never smoker alcohol intake: never substance use type: does not use what type of physical activity do you participate in: bicycling and aerobics frequency: daily seatbelt use: always do you feel safe at home: Yes additional social history: - Eric HPI HPI HPI: Patient is a 68-year-old female who arrives for surveillance visit of a right-sided thyroid nodule. Her initial surgical consultation was 03/23/2022. Today she reports that she is feeling well and is eager to be told that everything is all right. Specifically she confirms no development of new cough, hoarseness, neck pain, or notice of any new neck masses. She does remark of some progressive fatigue, but admits that this could be related to her diagnosis of multiple sclerosis. She did have repeat thyroid functions performed in anticipation of today's visit on 03/15/2023 and was found to have a TSH 1.75, T4, 6.9 and T3 2.4. Completed surveillance ultrasound imaging which identifies a right thyroid lobe measuring 4.5 x 1.0 x 1.2 cm. Patient previously designated dominant nodule was once again described as a mixed cystic and solid nodule measuring 1.2 x 0.6 x 0.6 cm. The nodule is reported as unchanged from prior study. The left lobe measured 3.6 x 0.9 x 1.0 cm. There were no dominant solid, or cystic, or complex lesions within this lobe. Below is recapitulated from patient's consultation visit for ease of review: MONSE BLEVINS, is a 67 F who presents to the office today for evaluation of thyroid nodules. They are referred for surgical consultation from Dr. Gregory. This was discovered several years ago, but surveillance ultrasound and not been performed in the last couple years given the COVID pandemic. On repeat ultrasound imaging, the patient had demonstrated some growth of her nodules and this prompted consultation to general surgery. They do not experience difficulty with swallowing. They do not complain of a new cough aside from what she experiences with allergies. She states that she will have some throat clearing and cough in response to pollen, but both of these have improved as the pollen levels have fallen. They do not appreciate new voice changes. They do not have a history of snoring/sleep apnea. Additionally, their weight has been stable and they do not have a history of weight gain/loss. There is a history of recent fatigue, but patient states this has been chronic/stable as a part of her diagnosis of MS. They do not have a history of heat or cold intolerance. Other symptoms include: Pertinent negatives???no palpitations and no anxiety. Patient does have a history of hair loss. She states this was accentuated following a segmental colectomy by my partner Dr. Alva complicated diverticulitis. Given the temporal relationship, it was postulated this was related to the stress of this event. Patient also states that she has had to be more intentional about taking protein with her diet and now that she has taken this step she has noticed less hair loss recently. They do have a family history of thyroid disorders or endocrinopathies???as she states her mother has been under evaluation for thyroid nodules for many years. There is no history of prior radiation exposure. Previous work-up has included thyroid ultrasound. Patient's most recent ultrasound was obtained on 03/02/2022. This showed a right thyroid lobe that measured 4.9 x 1.1 x 1.1 cm. There is a single nodule detected in this lobe that measured 1.1 x 0.7 x 0.6 cm. Based on its sonographic characteristics it was given a TI-RADS rating of 3. Radiology also commented this represented a enlarging nodule as it had previously measured 0.9 x 0.6 x 0.5 cm. The left thyroid lobe measured 3.9 x 0.7 x 0.7 cm. Radiology reported homogenous echotexture and no findings of nodules. Lastly the isthmus was reported 2 mm thick without nodules. An FNA has not been performed. Other tests include: TSH, T3, and T4. TSH: 1.7 ???IU/mL, T3: 2.9 pg/mL, free T4: 0.92 ng/dL (all performed 02/25/2022). ROS General General: No weight change, appetite, fatigue, colon cancer, breast cancer or weakness HEENT HEENT: No difficulty swallowing, eye injury, eye surgery, swollen glands or hoarseness Endo Endocrine: No thyroid disease, diabetes mellitus, thyroid cancer, Hair loss, heat intolerance or cold intolerance Skin Skin: No rash or changing moles Breast Breast: No left breast lump, right breast lump, nipple discharge, breast pain, abnormal mammogram, abnormal US or breast enlargement Musc Musculoskeletal: No back problems, arthritis, rheumatoid arthritis, gout or joint pain Cardio Cardiovascular: No murmur, pacemaker, heart disease, atrial fibrillation, high blood pressure, heart attack, heart stent, palpitations, shortness of breat with exertion or chest pain Psych Psychiatric: No depression, anxiety or hearing voices Resp Respiratory: No shortness of breath, No sleep apnea, No cough, No COPD, No asthma, No emphysema and No wheezing Gastro Gastrointestinal: No abdominal pain, No nausea or vomiting, No diarrhea, No constipation, No blood in stool, No acid reflux, No hemorrhoids, No ulcers, No gallbladder problem and No black,tarry stoo ls Daniel Hematologic: No blood thinners, No blood disorders, No bleeding, No anemia and No blood clots Neuro Neurologic: No system reviewed and no additional complaints, except as documented, No as per HPI, No abnormal gait, No abnormal hearing, No abnormal movements, No abnormal speech, No behavioral changes, No burning sensations, No confusion, No convulsions, No disequilibrium, No dizziness, No localized weakness, No frequent falls, No headache(s), No lack of coordination, No loss of vision, No memory loss, No numbness, No other visual disturbances, No radicular pain, No restless legs, No sensory deficit, No syncope, No tingling, No tremor(s), No weakness and No other Exam Const General: cooperative, comfortable and no acute distress Orientation: alert, awake and oriented x3 Neck Lymphatic: no lymphadenopathy noted Other: Patient with normal swallow. Subtly palpable right thyroid nodule. No tenderness with exam. Assessment and Plan Assessment and Plan (1) Thyroid nodule: Status: Acute Comment: This is a 68-year-old female, who remains euthyroid from an endocrine standpoint, and presents for follow-up of a right thyroid nodule. She previously was under surveillance for 2 thyroid nodules of the right thyroid lobe, however, her last study on 03/12/2022 only noted a single thyroid nodule. Patient was asked to see me because this nodule has undergone some growth since her prior study 05/26/2020. Updated study performed 03/24/2023 from patient's right-sided thyroid nodule to be completely stable from a year ago measuring within 1 mm of its prior dimensions. Further, although this nodule was recorded as a TI-RADS 3 on the previous study, I believe it could be argued that this is actually a TI-RADS 2 nodule given that there is still little solid component to it and that component that is present appears more isoechoic and hypoechoic by sonogram. If this distinction is allowing then this nodule with no longer be considered suspicious, but given that it has remained stable and the patient asymptomatic, I do not believe further follow-up is warranted. However, I have advised patient to have this area reexamined should she develop compressive symptomology. I have also stressed to her the importance of continuing to follow-up her thyroid function studies so that she does not realize growth of her nodule on the account of unchecked TSH elevations. She expresses understanding of this information and appreciation for these explanations. Plan: -No formal clinic follow-up is required, but patient is invited to call or arrange further follow-up with the occasion arises in the future Coding Level of Care Code Off vis,est,level 3 Diagnoses Thyroid nodule E04.1 03/30/231999 <Electronically signed by Dhiraj Evans MD> Date Dhiraj Evans MD Cosigner Signature: Date (if applicable) CC: Meghna Gregory DO Work Phone: Start: 03-24-2023 US scan of thyroid Dr. Meghna Gregory Work Phone: Start: 03-24-2023 End: 03-25-2023 Procedure Note: See Note; NOTES: [facility] Imaging Services [address] [place] [id number] Thyroid MR#: [id number] Acct: [id number] Name: MONSE BLEVINS Rep #: [id number] : 1955 F 68 From: Luis escobar MD PCP: Dr. Meghna Gregory, Status: REG CLI Study: Thyroid Date of Exam: 03/24/23 Exam# [id number] Ordering Dr: Dhiraj Evans MD STUDY: THYROID ULTRASOUND REASON FOR EXAM: Female, 68 years old. thyroid nodules TECHNIQUE: Ultrasound evaluation of the thyroid was performed with real-time and static santana-scale imaging. COMPARISON: Thyroid ultrasound dated May 26, 2020 FINDINGS: RIGHT LOBE: The right lobe of the thyroid gland measures 4.5 x 1.0 x 1.2 cm. There is a homogeneous echotexture. A mixed cystic and solid nodule is present in the upper pole and anteromedial aspect of the right lobe of the thyroid gland measuring 1.2 x 0.6 x 0.6 cm. This nodule is unchanged from the prior study. 2 additional tiny cysts are adjacent to the dominant lesion. LEFT LOBE: The left lobe of the thyroid gland measures 3.6 x 0.9 x 1.0 cm. There is a homogeneous echotexture. There are no demonstrated solid, cystic or complex lesions. ISTHMUS: The isthmus measures . The regional lymph nodes are normal. US/Thyroid IMPRESSION: 1. A mixed cystic and solid nodule is present in the upper pole and anteromedial aspect of the right lobe of the thyroid gland measuring 1.2 x 0.6 x 0.6 cm. 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 Electronically Signed: Luis Mas MD at 12:48 EDT Reading Location ID and State: [facility] / [place] , Service support , CC: Dr. Meghna Gregory DO; Dr. Dhiraj Evans MD Equipment Technician: Signed Meghna Gregory DO Work Phone: Start: 03-13-2023 End: 03-13-2023 Procedure Note: See Note; NOTES: [facility] 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 [employer] 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: No Is patient in pain?: No Allergies Sulfa (Sulfonamide Antibiotics) Allergy (Intermediate, Verified 03/13/23 14:19) Hives Medications gabapentin 100 mg capsule 100 mg PO BIDCM nerve pain 01/30/17 [History Confirmed 03/13/23] gabapentin 300 mg capsule 300 mg PO QHS MS 01/30/17 [History Confirmed 03/13/23] alendronate 35 mg tablet 35 mg PO TOBIAS bone health 06/06/19 [History Confirmed 03/13/23] cholecalciferol (vitamin D3) 50 mcg (2,000 unit) tablet 2,000 unit PO DAILY bone health 06/06/19 [History Confirmed 03/13/23] calcium carbonate 500 mg calcium (1,250 mg) chewable tablet (Calci-Chew) 500 mg PO DAILY 10/07/19 [History Confirmed 03/13/23] fluticasone propionate 50 mcg/actuation nasal spray,suspension 1 spray NASAL DAILY 04/30/20 [History Confirmed 03/13/23] ocrelizumab 30 mg/mL intravenous solution 300 mg IV .TWICE YEARLY MS 04/30/20 [History Confirmed 03/13/23] doxycycline monohydrate 50 mg capsule 50 mg PO DAILY 12/31/21 [History Confirmed 03/13/23] baclofen 10 mg tablet 10 mg PO TID MS 03/07/22 [History Confirmed 03/13/23] methylphenidate HCl 5 mg tablet (Ritalin) 5 mg PO DAILY PRN Anxiety 03/07/22 [History Confirmed 03/13/23] estradiol 0.01% (0.1 mg/gram) vaginal cream (Estrace) See Rx Instructions vaginal .COMPLEX #42.5 grams 07/14/22 [Rx Confirmed 03/13/23] Is last menstrual period known: No Post menopausal: Yes Patient : No : No PFSH Medical History (Updated 03/13/23 @ 14:35 by Bety Brian HOSPICE CLINICAL MARKETER, HOSPICE CLINICAL MARKETER-C) Back pain Diverticulitis of large intestine with abscess History of diverticulitis History of multiple sclerosis HTN (hypertension) Osteoarthritis Osteoporosis Peritonitis (acute) generalized Sepsis Sinus tachycardia by electrocardiogram Thyroid nodule Surgical History History of appendectomy History of colonoscopy ( 2013) History of tonsillectomy History of tubal ligation Status post colectomy Family History Mother Thyroid disorder Grandfather Colon cancer Daughter Cancer skin Other Diabetes Social History household members: spouse number of children: 2 current occupational status: retired history of recent travel: No sexually active: Yes Smoking Status: Never smoker alcohol intake: never substance use type: does not use what type of physical activity do you participate in: bicycling and aerobics frequency: daily seatbelt use: always do you feel safe at home: Yes additional social history: - Eric History 2 Elective abortions Hx Para 2 Spontaneous abortions Hx # Term Pregnancies Ectopic pregnancies Hx # Pregnancies Multiple births # of living children 2 Past Pregnancies Del. 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 Denies concerns Last PAP: NA History of abnormal PAP: no Last mammogram: 03/2022 History of abnormal mammogram: no Colon cancer screenin Other preventative health care screenings: Bri Female Reproductive History Questions: metorrhagia: No, sexually active: Yes, dyspareunia: No and PCB: No Menopausal Symptoms: No hot flashes, No night sweats, No weight change, No mood changes, No difficulty concentrating, No sleep problems and No change in libido Menopausal Treatment: Yes Vaginal Estrogen ROS Const Constitutional: Denies night sweats Cardio Card: Denies chest pain Resp Resp: Denies cough or dyspnea on exertion GI GI: Denies abdominal pain, bloating, change in stool character, constipation or vomiting : Denies hot flashes Psych Psych: Denies change in libido or difficulty concentrating Exam Const General: cooperative, healthy appearing, no acute distress and well developed Orientation: alert, oriented to person and oriented to place [facility] Head: normal to inspection Neck Neck: normal visual inspection Thyroid: thyroid normal Lymphatic: no lymphadenopathy noted Chest Breast inspection: normal inspection of the breasts and normal inspection of the axillae Breast palpation: normal palpation of the breasts, normal palpation of the axillae and no axillary lymphadenopathy Resp Effort Inspection: normal respiratory effort GI Palpation: soft, no masses and nontender Rectal Exam: deferred External Female Exam: normal external appearance and normal appearance of the urethra Urethra: normal appearance of the urethra and normal palpation Speculum Exam - Vagina: normal appearance of the vagina (good estrogen effect) and normal vaginal discharge Speculum Exam - Cervix: normal appearance of the cervix Bimanual Exam- Vagina Uterus: normal bimanual exam, uterine size normal, uterine shape normal and non-tender Bimanual Exam- Adnexa, other: normal adnexae, no masses, normal and non-tender Pelvic Support: normal Neuro General: patient alert and patient oriented x3 Psych Affect: normal affect Coding Level of Care Code Pelvic/Breast Diagnoses Routine gynecological examination Z01.419 Osteopenia M85.80 Atrophic vaginitis N95.2 Assessment and Plan Assessment and Plan (1) Routine gynecological examination: (2) Osteopenia: Status: Acute Comment: Alendronate per PCP; BMD sched 04/2023 (3) Atrophic vaginitis: Status: Acute Comment: estradiol cream, kegels Plan Completed breast and pelvic exam Reviewed diet and exercise Pap NA Mammogram scheduled breast self exam encouraged monthly Continue estradiol cream/does not need refills 2019 Bone density scheduled per PCP RTO 1 year, prn with problems Bety Torres RD LAB TECHNICIAN 03/13/23 1442 <Electronically signed by Bety Torres NP HOSPICE CLINICAL MARKETER-C> Date Bety Torres NP HOSPICE CLINICAL MARKETER-C Cosigner Signature: Date (if applicable) CC: Meghna Gregory DO Work Phone: Start: 11-27-2022 End: 11-27-2022 Procedure Note: See Note; NOTES: [facility] [address] [place] [address] [address] [place], [place] [address] OFFICE VISIT Date of Service: 11/27/22 MR#: [id number] Acct: [id number] Name: MONSE BLEVINS Rep #: [id number] : 1955 Provider: AYAAN Salazar Age/Sex: 67/F Location: [facility] Status: Signed Intake Vital Signs 11/23/22 07:57 11/27/22 11:26 Height 4 ft 11 in BP 118/39 L 110/60 Blood Pressure Location Lt brachial Position Sitting Respiration 16 14 Pulse 89 101 H Pulse Source Monitor Temp 97.2 F L 98.2 F Temp Source Temporal Temporal Pulse Oximetry (%) 100 98 Oxygen Delivery Method room air Intake Visit Reasons: INFECTION IN STITCHES Allergies Sulfa (Sulfonamide Antibiotics) Allergy (Intermediate, Verified 11/27/22 11:27) Hives Medications gabapentin 100 mg capsule 100 mg PO BIDCM nerve pain 01/30/17 [History Confirmed 11/27/22] gabapentin 300 mg capsule 300 mg PO QHS MS 01/30/17 [History Confirmed 11/27/22] alendronate 35 mg tablet 35 mg PO TOBIAS bone health 06/06/19 [History Confirmed 11/27/22] cholecalciferol (vitamin D3) 50 mcg (2,000 unit) tablet 2,000 unit PO DAILY bone health 06/06/19 [History Confirmed 11/27/22] calcium carbonate 500 mg calcium (1,250 mg) chewable tablet (Calci-Chew) 500 mg PO DAILY 10/07/19 [History Confirmed 11/27/22] fluticasone propionate 50 mcg/actuation nasal spray,suspension 1 spray NASAL DAILY 04/30/20 [History Confirmed 11/27/22] ocrelizumab 30 mg/mL intravenous solution 300 mg IV .TWICE YEARLY MS 04/30/20 [History Confirmed 11/27/22] doxycycline monohydrate 50 mg capsule 50 mg PO DAILY 12/31/21 [History Confirmed 11/27/22] baclofen 10 mg tablet 10 mg PO TID MS 03/07/22 [History Confirmed 11/27/22] methylphenidate HCl 5 mg tablet (Ritalin) 5 mg PO DAILY PRN 03/07/22 [History Confirmed 11/27/22] estradiol 0.01% (0.1 mg/gram) vaginal cream (Estrace) See Rx Instructions vaginal .COMPLEX #42.5 grams 07/14/22 [Rx Confirmed 11/27/22] cephalexin 500 mg capsule 500 mg PO BID 10 days #20 caps 11/27/22 [Rx Confirmed 11/27/22] PFSH Medical History Back pain Diverticulitis of large intestine with abscess History of diverticulitis History of multiple sclerosis HTN (hypertension) Osteoarthritis Osteoporosis Peritonitis (acute) generalized Sepsis Sinus tachycardia by electrocardiogram Thyroid nodule Surgical History History of appendectomy History of colonoscopy ( 2013) History of tonsillectomy History of tubal ligation Status post colectomy Family History Mother Thyroid disorder Grandfather Colon cancer Daughter Cancer skin Other Diabetes Social History household members: spouse number of children: 2 current occupational status: retired history of recent travel: No sexually active: Yes Smoking Status: Never smoker alcohol intake: never substance use type: does not use what type of physical activity do you participate in: bicycling and aerobics frequency: daily seatbelt use: always do you feel safe at home: Yes additional social history: - Eric [facility] HPI Details: MONSE BLEVINS, is a 67 F who presents to the office today for an infection and nurse that she has on her chin. Patient had a laceration 3 days ago. She was seen in the emergency room for this. She states that last night she had a throbbing in her chin. She notes that it is red and swollen. It is also warm to touch. She was seen by the dentist earlier this week and she did not have a problem with that. She does have an appointment with her PCP in a few days to have her stitches removed. ROS Const Constitutional: Positive for other (ROS negative x 10 except what is described above) Exam Const General: cooperative, healthy appearing and no acute distress Nutritional Appearance: average body habitus Orientation: alert, awake and oriented x3 HENMT Head: normal to inspection and atraumatic Ears: hearing grossly normal bilaterally Nose: external nose normal Face and sinus: normal facial exam Mouth: oral mucosae normal Eyes General: appearance normal, both eyes and all related structures Resp Effort Inspection: normal respiratory effort Auscultation: Bilateral: Clear to Auscultation Cardio Palpation: normal PMI Rate: regular rate Rhythm: regular rhythm Heart Sounds: S1 normal, S2 normal, no gallops, no murmurs and no rubs GI Inspection: normal to inspection Auscultation: normal bowel sounds Palpation: soft, no hepatosplenomegaly and nontender Skin Other: Laceration in chin sutures are well aligned. It is red there is no drainage noted however it is hard and warm to touch. It does extend throughout the laceration. Neuro General: patient alert, patient awake, patient oriented x3 and CN's II-XI intact bilaterally Coding Level of Care Code Off vis,est,level 2 Diagnoses Infected laceration T14.8XXA; L08.9 Assessment and Plan Assessment and Plan (1) Infected laceration: Status: Acute Plan: We will treat with antibiotics. Advised patient to continue to monitor closely. If it worsens to let her primary care doctor be aware of this. She verbalizes understanding. Medications: New cephalexin 500 mg PO BID 10 days 20 caps 0RF 11/27/22 1135 <Electronically signed by Ciara Leos> Date Ciara KUO Cosalfie Signature: Date (if applicable) CC: Meghna Gregory DO Work Phone: Start: 11-23-2022 End: 11-23-2022 Procedure Note: See Note; NOTES: [facility] [address] [place] [address] Emergency Department Summary 11/23/22 MR#: [id number] Acct: [id number] Name: MONSE BLEVINS Rep #: [id number] : 1955 67 From: Perez Bates DO PCP: Dr. Meghna Gregory DO Status:DEP ER Location: ED HPI History of Present Illness Chief Complaint: Laceration Narrative Narrative: 57-year-old female presenting with laceration to the chin just below her lip. She states she fell out of bed today striking her lip/chin. Bleeding is been controlled. Tetanus is up-to-date. No LOC, headache, visual complaints, nausea or vomiting. No neck pain. Patient does complain of some dental pain and the taste of blood in her mouth PFSH [facility] Medical History Back pain Diverticulitis of large intestine with abscess History of diverticulitis History of multiple sclerosis HTN (hypertension) Osteoarthritis Osteoporosis Peritonitis (acute) generalized Sepsis Sinus tachycardia by electrocardiogram Thyroid nodule Home Medications gabapentin 100 mg capsule 100 mg PO BIDCM nerve pain 01/30/17 [History Last Taken 01/23/20] gabapentin 300 mg capsule 300 mg PO QHS MS 01/30/17 [History Last Taken 01/22/20] alendronate 35 mg tablet 35 mg PO TOBIAS bone health 06/06/19 [History Last Taken 01/19/20] cholecalciferol (vitamin D3) 50 mcg (2,000 unit) tablet 2,000 unit PO DAILY bone health 06/06/19 [History Last Taken 01/23/20] calcium carbonate 500 mg calcium (1,250 mg) chewable tablet (Calci-Chew) 500 mg PO DAILY 10/07/19 [History Last Taken Unknown] ibuprofen 600 mg tablet 600 mg PO Q6H PRN PRN Pain Score 1-07/1101/29/20 [Rx Last Taken Unknown] fluticasone propionate 50 mcg/actuation nasal spray,suspension 1 spray NASAL DAILY 04/30/20 [History Last Taken Unknown] ocrelizumab 30 mg/mL intravenous solution 300 mg IV .TWICE YEARLY MS 04/30/20 [History Last Taken Unknown] doxycycline monohydrate 50 mg capsule 50 mg PO DAILY 12/31/21 [History Last Taken Unknown] baclofen 10 mg tablet 10 mg PO TID MS 03/07/22 [History Last Taken Unknown] methylphenidate HCl 5 mg tablet (Ritalin) 5 mg PO DAILY PRN 03/07/22 [History Last Taken Unknown] estradiol 0.01% (0.1 mg/gram) vaginal cream (Estrace) See Rx Instructions vaginal .COMPLEX #42.5 grams 07/14/22 [Rx Last Taken Unknown] Allergy/AdvReac Type Severity Reaction Status Date / Time Sulfa (Sulfonamide Allergy Intermediate Hives Verified 11/23/22 07:59 Antibiotics) Family History Mother Thyroid disorder Grandfather Colon cancer Daughter Cancer skin Other Diabetes Surgical History History of appendectomy History of colonoscopy ( 2013) History of tonsillectomy History of tubal ligation Status post colectomy Social History household members: spouse number of children: 2 current occupational status: retired history of recent travel: No sexually active: Yes Smoking Status: Never smoker alcohol intake: never substance use type: does not use what type of physical activity do you participate in: bicycling and aerobics frequency: daily seatbelt use: always do you feel safe at home: Yes additional social history: - Eric GUAJARDO ED Constitutional Constitutional ED: Denies chills, fever(s) or sweats Eyes Eyes: Denies blurry vision or change in vision ENT ENT ED: Reports other Details: Gumline pain ; Denies ear pain or sore throat Cardiovascular Cardiovascular: Denies chest pain, palpitations or racing heartbeat Respiratory/Chest Respiratory/Chest: Denies cough, dyspnea or sputum Gastrointestinal Gastrointestinal: Denies abdominal pain, constipation, diarrhea, nausea or vomiting Genitourinary Genitourinary ED: Denies dysuria, hematuria or urinary frequency Musculoskeletal Musculoskeletal: Denies arthralgias, myalgias or neck pain Integumentary Reports abscess and other Details: Laceration to chin Neurologic Neurologic: Denies headache(s), paresthesias or weakness Psychiatric Psychiatric: Denies anxiety, depression, suicidal ideation or suicidal thoughts Endocrine Endocrinology: Denies polydipsia or polyuria EXAM Physical Exam Const Vital Signs: 11/23/22 07:57 Temperature 97.2 F L Temperature Source Temporal Pulse Rate 89 Respiratory Rate 16 Blood Pressure 118/39 L Blood Pressure Mean 65 Pulse Ox 100 Oxygen Delivery Method Room Air Positive well nourished General Appearance ED: NAD HEENT HEENT Narrative: The gingiva of at the base of tooth #23, 24, 25, 26 is slightly macerated. The dentition is intact. atraumatic and trauma Eyes PERRL and EOMs intact bilaterally Neck full ROM General: Negative for tenderness Resp normal respiratory effort and clear to auscultation bilaterally Auscultation: Negative for rales, rhonchi or wheezes Cardio regular rhythm Rate: regular rate Back/Spine normal to inspection Neuro oriented x3 and CN's II-XII intact bilaterally Sensorium / Orientation: alert Motor Exam: strength 5/5 throughout Skin Skin Narrative: 4 cm horizontal laceration with good approximation of the wound margins fpc between the lower lip and the cleft of the chin. It is not a through and through laceration. MDM MDM MDM Narrative Medical decision making narrative: Tetanus is up-to-date. Bleeding is well controlled. Lip laceration will need to be sutured. It is not through and through. The gingiva associated with teeth numbers 23 through 25 are slightly macerated but the dentition is intact. Patient did not require anything for pain. Wound was cleaned with chlorhexidine. Patient wound anesthetized with 4 cc of lidocaine with epinephrine. Good anesthesia achieved. Wound was irrigated with 250 cc of sterile saline. The wound margins are fairly well approximated but I sutured these in place using #4 6???0 Ethilon sutures. Patient counseled on wound care. She is counseled follow-up in 5 to 7 days for suture removal. Patient also counseled after she eats she should swish and spit to avoid getting food into Macerated gingival tissue. Patient discharged home in stable condition. Impression: 1. Mechanical fall 2. Facial laceration 3. Gingival injury Lab Data Attestation: I reviewed the patient's lab results. Discharge Plan Triage Chief Complaint: Laceration ED Provider: Perez Bates Dx/Rx/DC Orders Instructions: ED FACIAL LACERATION Suture Tape Prescriptions: No Action calcium carbonate [Calci-Chew] 500 mg calcium (1,250 mg) tablet,chewable 500 mg PO DAILY methylphenidate HCl [Ritalin] 5 mg tablet 5 mg PO DAILY PRN gabapentin 300 MG capsule 300 mg PO QHS gabapentin 100 MG capsule 100 mg PO BIDCM Label Comments: WITH BREAKFAST AND LUNCH baclofen 10 mg tablet 10 mg PO TID alendronate 35 MG tablet 35 mg PO TOBIAS cholecalciferol (vitamin D3) 2,000 UNIT tablet 2,000 unit PO DAILY ibuprofen 600 MG tablet 600 mg PO Q6H PRN PRN (Reason: Pain Score 1-10/10) 0RF fluticasone propionate 1 SPRAY spray,suspension 1 spray NASAL DAILY ocrelizumab 300 MG/10 ML solution 300 mg IV .TWICE YEARLY Rx Instructions: NEXT DOSE 06/04/20 doxycycline monohydrate 50 mg Capsule 50 mg PO DAILY estradiol [Estrace] 0.01 % (0.1 mg/gram) cream See Rx Instructions VAGINAL .COMPLEX Qty: 42.5 2RF Rx Instructions: pea sized amount VAGINAL 3 nights per week Primary Care Provider: Meghna Gregory Referrals: Meghna Gregory DO [Primary Care Provider] - Disposition Disposition: Home, Self Care Discharge Date/Time: 11/23/22 10:31 What to do if you have Problems For any increased pain, shortness of breath, bleeding, nausea or vomiting, chest pain, or any unexpected problems, contact your Primary Care Provider. Call [facility] ([phone]) or report to the closest Emergency Room. Call 911 if necessary. 11/23/22 1448 <Electronically signed by Perez Bates DO> Cosigner Signature (if applicable): CC: Dr. Meghna Gregory DO Signed Meghna Gregory DO Work Phone: Start: 03-31-[address] Meghna alexander Work Phone: Start: 03-31-2022 End: 03-31-2022 Comments: See Note; NOTES: [facility] Imaging Services [address] [place] [address] SCRN MAMM (CAD)W/MARCIANO AMINAT MR#: [id number] Acct: [id number] Name: GENMONSE S Rep #: [id number] : 1955 F 67 From: Antoine esteban MD PCP: Dr. Meghna Gregory, DO Status: REG I Study: SCRN MAMM (CAD)W/MARCIANO BILAT Date of Exam: 03/04 Exam# [id number] Ordering Dr: Bety Torres NP, NP -Jodee MAMMOGRAPHY - BILATERAL SCREENING REASON FOR EXAM: Female, 67 years old. Routine annual screening examination. PERTINENT HISTORY: Non-contributory. TECHNIQUE: Digital bilateral breast marciano (3D mammographic acquisition) in the CC and MLO projections. 2-D mediolateral oblique (MLO) and craniocaudad (CC) views of both breasts were obtained. CAD: Full Field Digital Mammography with Computer Added Detection was performed. COMPARISON: Comparison is made with prior study dated 03/30/2021 and 03/06/2020. FINDINGS: Breast Composition: The breasts are heterogeneously dense, which may obscure small masses. There are no dominant masses or suspicious calcifications. Stable small benign-appearing bilateral axillary No other significant abnormalities are identified. There has been no significant change since the prior study. BI/SCRN MAMM (CAD)W/MARCIANO BILAT IMPRESSION: Stable bilateral screening mammogram. Yearly follow-up mammogram recommended. (A) ASSESSMENT CATEGORY: BIRADS Category 2: Benign. A letter regarding these results will be sent to the patient by the facility within 30 days. Approximately 10% of breast cancers are not detected by mammography. A normal mammogram should not delay biopsy of a clinically suspicious abnormality. [id number] Electronically Signed: Antoine Holbrook MD at 8:25 EDT , CC: FLORENCIA Torres; Dr. Meghna Gregory DO Equipment Technician: Signed Meghna Gregory DO Work Phone: Start: 03-23-2022 End: 03-23-2022 Comments: See Note; NOTES: [facility] [address] [place] [address] OFFICE VISIT Date of Service: 03/23/22 MR#: [id number] Acct: [id number] Name: MONSE BLEVINS Rep #: [id number] : 1955 Provider: Dr. Dhiraj estes MD Age/Sex: 67/F Location: [facility] Status: Signed Intake Vital Signs 03/23/22 13:46 Height 4 ft 10.5 in Weight: 98 lb BMI 20.1 BP 104/71 Blood Pressure Location Rt brachial Position Sitting Respiration 16 Intake Visit Reasons: BILATERAL THYROID NODULES Chief Complaint: thyroid nodules E Commerce 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: No Is patient in pain?: No Allergies Sulfa (Sulfonamide Antibiotics) Allergy (Intermediate, Verified 03/23/22 13:46) Hives Medications gabapentin 100 mg capsule 100 mg PO BIDCM nerve pain 01/30/17 [History Confirmed 03/23/22] gabapentin 300 mg capsule 300 mg PO QHS MS 01/30/17 [History Confirmed 03/23/22] alendronate 35 mg tablet 35 mg PO TOBIAS bone health 06/06/19 [History Confirmed 03/23/22] cholecalciferol (vitamin D3) 50 mcg (2,000 unit) tablet 2,000 unit PO DAILY bone health 06/06/19 [History Confirmed 03/23/22] calcium carbonate 500 mg calcium (1,250 mg) chewable tablet (Calci-Chew) 500 mg PO DAILY 10/07/19 [History Confirmed 03/23/22] ibuprofen 600 mg tablet 600 mg PO Q6H PRN PRN Pain Score 1-10/01/29/20 [Rx Confirmed 03/23/22] fluticasone propionate 50 mcg/actuation nasal spray,suspension 1 spray NASAL DAILY 04/30/20 [History Confirmed 03/23/22] ocrelizumab 30 mg/mL intravenous solution 300 mg IV .TWICE YEARLY MS 04/30/20 [History Confirmed 03/23/22] estradiol (Estrace) See Rx Instructions vaginal .COMPLEX #42.5 grams 08/11/20 [Rx Confirmed 03/23/22] doxycycline monohydrate 50 mg capsule 50 mg PO DAILY 12/31/21 [History Confirmed 03/23/22] baclofen 10 mg tablet 10 mg PO TID MS 03/07/22 [History Confirmed 03/23/22] methylphenidate HCl 5 mg tablet (Ritalin) 5 mg PO DAILY PRN 03/07/22 [History Confirmed 03/23/22] [facility] Medical History (Updated 03/23/22 @ 15:[address] Dhiraj Evans MD) Back pain Diverticulitis of large intestine with abscess History of diverticulitis History of multiple sclerosis HTN (hypertension) Osteoarthritis Osteoporosis Peritonitis (acute) generalized Sepsis Sinus tachycardia by electrocardiogram Thyroid nodule Surgical History History of appendectomy History of colonoscopy ( 2013) History of tonsillectomy History of tubal ligation Status post colectomy Family History Mother Thyroid disorder Grandfather Colon cancer Daughter Cancer skin Other Diabetes Social History household members: spouse number of children: 2 current occupational status: retired history of recent travel: No sexually active: Yes Smoking Status: Never smoker alcohol intake: never substance use type: does not use what type of physical activity do you participate in: bicycling and aerobics frequency: daily seatbelt use: always do you feel safe at home: Yes additional social history: - Eric HPI HPI HPI: MONSE BLEVINS, is a 67 F who presents to the office today for evaluation of thyroid nodules. They are referred for surgical consultation from Dr. Gregory. This was discovered several years ago, but surveillance ultrasound and not been performed in the last couple years given the COVID pandemic. On repeat ultrasound imaging, the patient had demonstrated some growth of her nodules and this prompted consultation to general surgery. They do not experience difficulty with swallowing. They do not complain of a new cough aside from what she experiences with allergies. She states that she will have some throat clearing and cough in response to pollen, but both of these have improved as the pollen levels have fallen. They do not appreciate new voice changes. They do not have a history of snoring/sleep apnea. Additionally, their weight has been stable and they do not have a history of weight gain/loss. There is a history of recent fatigue, but patient states this has been chronic/stable as a part of her diagnosis of MS. They do not have a history of heat or cold intolerance. Other symptoms include: Pertinent negatives???no palpitations and no anxiety. Patient does have a history of hair loss. She states this was accentuated following a segmental colectomy by my partner Dr. Alva complicated diverticulitis. Given the temporal relationship, it was postulated this was related to the stress of this event. Patient also states that she has had to be more intentional about taking protein with her diet and now that she has taken this step she has noticed less hair loss recently. They do have a family history of thyroid disorders or endocrinopathies???as she states her mother has been under evaluation for thyroid nodules for many years. There is no history of prior radiation exposure. Previous work-up has included thyroid ultrasound. Patient's most recent ultrasound was obtained on 03/02/2022. This showed a right thyroid lobe that measured 4.9 x 1.1 x 1.1 cm. There is a single nodule detected in this lobe that measured 1.1 x 0.7 x 0.6 cm. Based on its sonographic characteristics it was given a TI-RADS rating of 3. Radiology also commented this represented a enlarging nodule as it had previously measured 0.9 x 0.6 x 0.5 cm. The left thyroid lobe measured 3.9 x 0.7 x 0.7 cm. Radiology reported homogenous echotexture and no findings of nodules. Lastly the isthmus was reported 2 mm thick without nodules. An FNA has not been performed. Other tests include: TSH, T3, and T4. TSH: 1.7 ???IU/mL, T3: 2.9 pg/mL, free T4: 0.92 ng/dL (all performed 02/25/2022). ROS General General: Yes fatigue; No weight change, appetite, colon cancer, breast cancer or weakness HEENT HEENT: No difficulty swallowing, eye injury, eye surgery, swollen glands or hoarseness Endo Endocrine: No thyroid disease, diabetes mellitus, thyroid cancer, Hair loss, heat intolerance or cold intolerance Skin Skin: No rash or changing moles Breast Breast: No left breast lump, right breast lump, nipple discharge, breast pain, abnormal mammogram, abnormal US or breast enlargement Musc Musculoskeletal: No back problems, arthritis, rheumatoid arthritis, gout or joint pain Cardio Cardiovascular: No murmur, pacemaker, heart disease, atrial fibrillation, high blood pressure, heart attack, heart stent, palpitations, shortness of breat with exertion or chest pain Psych Psychiatric: No depression, anxiety or hearing voices Resp Respiratory: No shortness of breath, No sleep apnea, No cough, No COPD, No asthma, No emphysema and No wheezing Gastro Gastrointestinal: No abdominal pain, No nausea or vomiting, No diarrhea, No constipation, No blood in stool, No acid reflux, No hemorrhoids, No ulcers, No gallbladder problem and No black,tarry stools Daniel Hematologic: No blood thinners, No blood disorders, No bleeding, No anemia and No blood clots Neuro Neurologic: No system reviewed and no additional complaints, except as documented, No as per HPI, No abnormal gait, No abnormal hearing, No abnormal movements, No abnormal speech, No behavioral changes, No burning sensations, No confusion, No convulsions, No disequilibrium, No dizziness, No localized weakness, No frequent falls, No headache(s), No lack of coordination, No loss of vision, No memory loss, Yes numbness, No other visual disturbances, No radicular pain, No restless legs, No sensory deficit, No syncope, Yes tingling, No tremor(s), No weakness and No other Exam Const General: cooperative, healthy appearing, comfortable and no acute distress Orientation: alert, awake and oriented x3 Neck Thyroid: thyroid normal and nontender Lymphatic: no lymphedema noted Other: Slender neck, no thyroid bruit auscultated Assessment and Plan Assessment and Plan (1) Thyroid nodule: Status: Acute Comment: This is a 67-year-old female, euthyroid from an endocrine standpoint, who has a known history of thyroid nodules. She previously was under surveillance for 2 thyroid nodules of the right thyroid lobe, however, her most recent study on 03/12/2022 only did noted a single thyroid nodule. Patient was asked to see me because this nodule has undergone some growth since her prior study 05/26/2020. In all, patient's nodule has grown by 2 mm??? (an increase of 2 mm in 1 dimension and 1 mm in the remaining 2 dimensions). She denies any compressive symptomology and her nodule is rated at a TI- RADS 3. In the absence of any symptoms, and with this only mild suspicion from the imaging, I recommend ongoing surveillance. We will plan to repeat patient's thyroid ultrasound in 1 year with a post imaging clinic follow-up for exam. Patient is accepting of this recommendation and appreciative of the explanation. Plan: ??? Repeat thyroid ultrasound in 1 year ??? Clinic follow-up after ultrasound exam Orders: Orders Thyroid 1 Year E04.1 - Nontoxic single thyroid nodule Coding Level of Care Code Off vis,new,level 4 Diagnoses Thyroid nodule E04.1 03/23/22 1503 <Electronically signed by Dhiraj Evans MD> Date [facility] Signature: Date (if applicable) CC: DO Meghna Partida DO Work Phone: Start: 03-12-2022 US scan of thyroid Dr. Meghna Gregory Work Phone: Start: 03-12-2022 End: 03-12-2022 Comments: See Note; NOTES: [facility] Imaging Services [address] [place] [address] Thyroid MR#: [id number] Acct: [id number] Name: MONSE BLEVINS Rep #: [id number] : 1955 F 67 From: Andrew Walker MD PCP: Dr. Meghna Gregory DO Status: REG CLI Study: Thyroid Date of Exam: 03/12/22 Exam# [id number] Ordering Dr: Meghna Gregory DO STUDY: THYROID ULTRASOUND REASON FOR EXAM: Female, 67 years old. NODULES TECHNIQUE: Ultrasound evaluation of the thyroid was performed with real-time and static santana-scale imaging. COMPARISON: 05/26/2020 FINDINGS: RIGHT LOBE: The right lobe of the thyroid gland measures 4.9 x 1.1 x 1.1 cm. There is a homogeneous echotexture. Nodule 1: Enlarging (5 x 5 x 9 mm to 6 x 7 x 11 mm) mixed cystic and solid hypoechoic wider than tall smoothly marginated nodule with no echogenic foci (TR 3) in the lateral right lobe consistent with an adenoma. Mm LEFT LOBE: The left lobe of the thyroid gland measures 3.9 x 0.7 x 0.7 cm. There is a homogeneous echotexture. There are no demonstrated solid, cystic or complex lesions. ISTHMUS: The isthmus measures 2 mm thick. . The regional lymph nodes are normal. US/Thyroid IMPRESSION: Enlarging partially cystic adenoma the right lobe. Electronically Signed: Andrew Walker MD at 17:52 EDT , CC: Dr. Meghna Gregory DO Equipment Technician: Signed Meghna Gregory DO Work Phone: Start: 03-07-2022 End: 03-07-2022 Comments: See Note; NOTES: [facility] 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) Allergies Sulfa (Sulfonamide Antibiotics) Allergy (Intermediate, Verified 03/07/22 10:46) Hives Medications gabapentin 100 mg PO BIDCM 01/30/17 [History Confirmed 03/07/22] gabapentin 300 mg PO QHS 01/30/17 [History Confirmed 03/07/22] alendronate 35 mg PO TOBIAS 06/06/19 [History Confirmed 03/07/22] cholecalciferol (vitamin D3) 2,000 unit PO DAILY 06/06/19 [History Confirmed 03/07/22] calcium carbonate 500 mg calcium (1,250 mg) chewable tablet 500 mg PO DAILY 10/07/19 [History Confirmed 03/07/22] ibuprofen 600 mg PO Q6H PRN PRN tab 01/29/20 [Rx Confirmed 03/07/22] fluticasone propionate 1 spray NASAL DAILY 04/30/20 [History Confirmed 03/07/22] ocrelizumab 300 mg IV .TWICE YEARLY 04/30/20 [History Confirmed 03/07/22] estradiol See Rx Instructions VAGINAL .COMPLEX #42.5 g 08/11/20 [Rx Confirmed 03/07/22] doxycycline monohydrate 50 mg PO DAILY 12/31/21 [History Confirmed 03/07/22] baclofen 10 mg tablet 10 mg PO TID tab 03/07/22 [History Confirmed 03/07/22] methylphenidate HCl 5 mg tablet 5 mg PO DAILY PRN 03/07/22 [History Confirmed 03/07/22] Post menopausal: Yes Nurse's Note: has been having trouble with thinning hair. has had thyroid labs run, wondering if hormonal levels could be checked. also discomfort with intercourse - wondering about amt of estradiol she should be using [facility] Medical History Back pain Diverticulitis of large intestine with abscess History of diverticulitis History of multiple sclerosis HTN (hypertension) Osteoarthritis Osteoporosis Peritonitis (acute) generalized Sepsis Sinus tachycardia by electrocardiogram Surgical History History of appendectomy History of colonoscopy ( 2013) History of tonsillectomy History of tubal ligation Status post colectomy Family History Mother Thyroid disorder Grandfather Colon cancer Daughter Cancer skin Other Diabetes Social History household members: spouse number of children: 2 current occupational status: retired history of recent travel: No sexually active: Yes Smoking Status: Never smoker alcohol intake: never substance use type: does not use what type of physical activity do you participate in: bicycling and aerobics frequency: daily seatbelt use: always do you feel safe at home: Yes additional social history: - Eric Pregancy History 2 Elective abortions Hx Para 2 Spontaneous abortions Hx # Term Pregnancies Ectopic pregnancies Hx # Pregnancies Multiple births # of living children 2 Past Pregnancies Del. Date Name GA/Weeks Outcome Route Bth Weight Gen Labor Lgth Anesthesia Del Locatn Provider FOB Unknown Vonda 1971 Unknown Pat 1975 HPI Encounter for routine gynecological examination Details: MONSE BLEVINS is a 67 year old who presents for annual exam. Using jane of estradiol cream twice a week. Notes some mild pain with insertion during intercourse. Also hair is thinning. Has upcoming US of thyroid Last PAP: na History of abnormal PAP: no Last mammogram: 03/2021 History of abnormal mammogram: no Colon cancer screenin Other preventative health care screenings: Bri ROS Const Constitutional: Denies fatigue, weight gain or weight loss Cardio Card: Denies chest pain Resp Resp: Denies cough or dyspnea on exertion GI GI: Denies abdominal pain, bloating, change in stool character, constipation or vomiting : Reports as per HPI; Denies difficulty voiding, pelvic pain, urinary frequency, urinary incontinence, urinary urgency, vaginal discharge or vaginal pruritus Exam Const General: cooperative, healthy appearing, no acute distress and well developed Orientation: alert, oriented to person and oriented to place HENMT Head: normal to inspection Neck Neck: normal visual inspection Thyroid: thyroid normal Lymphatic: no lymphadenopathy noted Chest Breast inspection: normal inspection of the breasts and normal inspection of the axillae Breast palpation: normal palpation of the breasts, normal palpation of the axillae and no axillary lymphadenopathy Resp Effort Inspection: normal respiratory effort GI Palpation: soft, no masses and nontender Rectal Exam: deferred External Female Exam: normal external appearance and normal appearance of the urethra Urethra: normal appearance of the urethra and normal palpation Speculum Exam - Vagina: normal appearance of the vagina (good estrogen effect) and normal vaginal discharge Speculum Exam - Cervix: normal appearance of the cervix Bimanual Exam- Vagina Uterus: normal bimanual exam, uterine size normal, uterine shape normal and non-tender Bimanual Exam- Adnexa, other: normal adnexae, no masses, normal and non-tender Pelvic Support: normal Neuro General: patient alert and patient oriented x3 Psych Affect: normal affect Coding Level of Care Code Pelvic/Breast Diagnoses Encounter for routine gynecological examination Z01.419 Atrophic vaginitis N95.2 Assessment and Plan Assessment and Plan (1) Encounter for routine gynecological examination: (2) Atrophic vaginitis: Status: Acute Comment: estradiol cream, kegels Plan - Bety Torres HOSPICE CLINICAL MARKETER, HOSPICE CLINICAL MARKETER-C: Completed breast and pelvic exam Reviewed diet and exercise Pap na Mammogram scheduled breast self exam encouraged monthly May reduce estrogen cream to small amount at vaginal opening 3 nights per week Colonoscopy 2019 Bone density with PCP RTO 1 year, prn with problems Bety Torres RD LAB TECHNICIAN Plan Details Other Orders: Orders: SCRN MAMM (CAD)W/MARCIANO BILAT 02/21/22 03/07/22 1136 <Electronically signed by Bety Torres NP HOSPICE CLINICAL MARKETER-C> Date Bety Torres NP HOSPICE CLINICAL MARKETER-C Cosigner Signature: Date (if applicable) CC: Meghna Gregory DO Work Phone: Start: 03-30-2021 End: 03-31-2021 Comments: See Note; NOTES: [facility] Imaging Services [address] [place] [address] Dexa Bone Density Study MR#: [id number] Acct: [id number] Name: MONSE BLEVINS Rep #: [id number] : 1955 F 66 From: Antoine esteban MD PCP: Dr. Meghna Gregory DO Status: REG CLI Study: Dexa Bone Density Study Date of Exam: 03/30/21 Exam# [id number] Ordering Dr: Meghna Gregory DO STUDY: DUAL ENERGY X-RAY ABSORPTIOMETRY / DXA REASON FOR EXAM: Female, 66 years old. Z780. Patient is postmenopausal. Loss of height. TECHNIQUE: Bone Mineral Density (BMD) measurements of lumbar spine and bilateral hips were obtained. COMPARISON: Comparison is made with prior examination dated 02/06/2018. FINDINGS: Lumbar Spine (L1-L4): g/cm2 (0.991) / T-score (-1.6) / Z-score (0.0) Findings are suggestive of osteopenia with a moderate fracture risk. Increased kyphosis. Left Femur Total: g/cm2 (0.821) / T-score (-1.5) / Z-score (-0.2) Left Femoral Neck: g/cm2 (0.797) / T-score (-1.7) / Z-score (-0.2) Right Femur Total: g/cm2 (0.761) / T-score (-2.0) / Z-score (-0.7) Right Femoral Neck: g/cm2 (0.804) / T-score (-1.7) / Z-score (-0.2) The T-Scores on the most recent prior examination were: Lumbar Spine (L1-L4): There has been improvement of bone density since the previous examination. Left Femur Total: which represents an improvement of 55%. Right Femur Total: which represents no significant change. . BD/Dexa Bone Density Study IMPRESSION: The patient is considered osteopenic as outlined below according to World Jet Organization (WHO) criteria with a moderate fracture risk. There has been improvement of bone density since the previous examination. Reference Information: The T-score is the number of standard deviations above or below the standard which is normal for young adults at their peak bone mineral density. The World Health Organization (WHO) interprets the T-scores as follows: Above -1 Normal bone density Between -1 and -2.5 Osteopenia Equal to / or below -2.5 Osteoporosis As a practical clinical guideline, osteopenia may be graded as follows: Mild -1 through -1.5 Moderate -1.6 through -2.0 Severe -2.1 through -2.4 The Z-score is the number of standard deviations above or below age-matched controls. A Z-score of less than -1.5 would be considered abnormal. References: 1. NIH Osteoporosis and Related Bone Diseases www osteo.org 2. International Society for Clinical Densitometry www iscd.org 3. National Osteoporosis Foundation www nof.org Electronically Signed: Antoine Holbrook MD at 13:03 EDT , Service support , CC: Dr. Meghna Gregory DO Equipment Technician: Signed Meghna Gregory DO Work Phone: Start: 03-30-2021 End: 03-30-2021 Comments: See Note; NOTES: [facility] Imaging Services [address] [place] [id number] SCRN MAMM (CAD)W/MARCIANO BILAT MR#: [id number] Acct: [id number] Name: MONSE BLEVINS Rep #: [id number] : 1955 F 66 From: Antoine esteban MD PCP: Dr. Meghna Gregory DO Status: REG CLI Study: SCRN MAMM (CAD)W/MARCIANO BILAT Date of Exam: 03/03 06/22 Exam# [id number] Ordering Dr: Meghna Gregory DO MAMMOGRAPHY - BILATERAL SCREENING REASON FOR EXAM: Female, 66 years old. Routine annual screening examination. PERTINENT HISTORY: Non-contributory. TECHNIQUE: Digital bilateral breast marciano (3D mammographic acquisition) in the CC and MLO projections. 2-D mediolateral oblique (MLO) and craniocaudad (CC) views of both breasts were obtained. CAD: Full Field Digital Mammography with Computer Added Detection was performed. COMPARISON: Comparison is made with prior study dated 03/06/2020 and 02/07/2019. FINDINGS: Breast Composition: The breasts are heterogeneously dense, which may obscure small masses. There are no dominant masses or suspicious calcifications. No other significant abnormalities are identified. There has been no significant change since the prior study. BI/SCRN MAMM (CAD)W/MARCIANO BILAT IMPRESSION: Stable bilateral screening mammogram. Yearly follow-up mammogram recommended. (A) ASSESSMENT CATEGORY: BIRADS Category 1: Negative. A letter regarding these results will be sent to the patient by the facility within 30 days. Approximately 10% of breast cancers are not detected by mammography. A normal mammogram should not delay biopsy of a clinically suspicious abnormality. [id number] Electronically Signed: Antoine Holbrook MD at 8:53 EDT , Service support , CC: Dr. Meghna Gregory DO Equipment Technician: Signed Meghna Gregory DO Work Phone: Start: 09-14-2020 End: 09-19-2020 Echo Complete W/ Contrast Comments: See Note; NOTES: [facility] [address] [place] [address] Echo Complete W/ Contrast 09/14/20 0947 MR#: [id number] Acct: [id number] Name: GENMONSE S Rep #: [id number] : 1955 65 From: Jemima Almanzar MD Attending Dr: Dr. Huseyin Mott MD Status: REG CLI Ordering Dr: Huseyin Mott MD Date: 09/14/20 Location: [facility] Sex: F C Admitted: Reason For Study: PHTN Procedure This was a 2D Doppler, Color Flow transthoracic echocardiogram. The study was technically difficult. Contrast injection was performed. Exam performed in department. Left Ventricle Normal LV size. The estimated ejection fraction is 60 %. No evidence for diastolic dysfunction. No regional wall motion abnormalities noted. Right Ventricle Normal RV size. Normal systolic function. Atria Normal left atrium. Normal right atrium. No doppler evidence for ASD. Mitral Valve There is no mitral valve stenosis. Trivial mitral valve insufficiency. Tricuspid Valve There is no tricuspid stenosis. Trivial tricuspid valve insufficiency. Pulmonary artery systolic pressure is 25 mmHg. Aortic Valve Trisinus/trileaflet aortic valve. There is no aortic stenosis. No aortic valve insufficiency. Pulmonic Valve There is no pulmonic valvular stenosis. No pulmonic valve insufficiency. Great Vessels Normal aortic root. Pericardium/Pleural No pericardial effusion. Medication 22 gauge I.V. with prn adaptor inserted into right arm. Diluted definity 2ml given slow IV push to enhance endocardial definition. MMode/2D Measurements Calculations LVIDd: 3.4 cm IVSd: 0.79 cm Ao root diam: 3.5 cm LVIDs: 1.9 cm LVPWd: 0.92 cm LA dimension: 2.4 cm RVDd: 3.1 cm FS: 43.7 % LAV(MOD-bp): 20.0 ml LA A4 area: 10.4 cm2 RA A4 area: 9.1 cm2 LAV(MOD-bp) Indexed: 14.6 ml/m2 LAV(MOD-sp2): 17.6 ml LAV(MOD-sp4): 22.7 ml Time Measurements MV dec time: 0.20 sec Doppler Measurements Calculations MV E max christine: 71.2 cm/sec Lat Peak E' Christine: 8.5 cm/sec Med Peak E' Christine: 7.3 cm/sec MV A max christine: 93.8 cm/sec E/E' lat: 8.4 E/E' med: 9.8 MV E/A: 0.76 MV V2 max: 91.2 cm/sec MV P1/2t max christine: 66.0 cm/sec Ao V2 max: 95.1 cm/sec MV max P.3 mmHg MV P1/2t: 67.4 msec Ao max P.6 mmHg MV V2 mean: 43.8 cm/sec MV dec slope: 286.7 cm/sec2 MV mean P.91 mmHg MV V2 VTI: 23.1 cm MVA(P1/2t): 3.3 cm2 LV V1 max: 84.7 cm/sec PA V2 max: 62.1 cm/sec TR max christine: 233.4 cm/sec LV V1 max P.9 mmHg TR max P.8 mmHg Interpretation Summary The estimated ejection fraction is 60 %. No evidence for diastolic dysfunction. Trivial mitral valve insufficiency. Trivial tricuspid valve insufficiency. _ Ordering Physician: Huseyin Mott Referring Physician: Meghna Gregory M.D. Performed By: Haile Pierson RCS 09/19/20 1516 Date Jemima Almanzar MD CC: Dr. Meghna Gregory, DO; Dr. Huseyin Mott MD Date Dictated: 09/14/2047 Date Transcribed: 09/19/201515 Equipment Technician: Signed Meghna Gregory Start: 08-11-2020 End: 08-11-2020 Surgery Aide Office Visit Report Comments: See Note; NOTES: [facility] [address] [place] [address] OFFICE VISIT Date of Service: 08/11/20 MR#: [id number] Acct: [id number] Name: MONSE BLEVINS Rep #: [id number] : 1955 Provider: FLORENCIA li Age/Sex: 65/F Location: [facility] [place] Status: Signed Intake Vital Signs 08/11/20 Height 4 ft 11 in 08/11/20 Weight: 99 lb 8 oz 08/11/20 BMI 20.0 08/11/20 BP 120/60 Intake Visit Reasons: New, pain w/intercourse, ref by Dr. Gregory E Commerce 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: No Accompanied by: self Is patient in pain?: No Allergies Sulfa (Sulfonamide Antibiotics) Allergy (Intermediate, Verified 08/11/20 09:15) Hives Medications Baclofen 10 mg PO TID 01/30/17 [History Confirmed 08/11/20] Gabapentin [Neurontin] 100 mg PO BIDCM 01/30/17 [History Confirmed 08/11/20] Gabapentin [Neurontin] 300 mg PO QHS 01/30/17 [History Confirmed 08/11/20] Alendronate Sodium 35 mg PO TOBIAS 06/06/19 [History Confirmed 08/11/20] Cholecalciferol (Vitamin D3) [Vitamin D3] 2,000 unit PO DAILY 06/06/19 [History Confirmed 08/11/20] calcium carbonate 500 mg calcium (1,250 mg) chewable tablet 500 mg PO DAILY 10/07/19 [History Confirmed 08/11/20] Ibuprofen [Motrin] 600 mg PO Q6H PRN PRN tab 01/29/20 [Rx Confirmed 08/11/20] Fluticasone 0.05% [Flonase Nasal [place]] 1 spray NASAL DAILY 04/30/20 [History Confirmed 08/11/20] Ocrelizumab [Ocrevus] 300 mg IV .TWICE YEARLY 04/30/20 [History Confirmed 08/11/20] estradiol See Rx Instructions VAGINAL .COMPLEX #42.5 g 08/11/20 [Rx Confirmed 08/11/20] Is last menstrual period known: No Post menopausal: Yes Patient : No : No PFSH Medical History Back pain (Acute) History of diverticulitis (Acute) History of multiple sclerosis (Acute) Osteoarthritis (Acute) Osteoporosis (Acute) HTN (hypertension) (Chronic) Surgical History History of appendectomy (Acute) History of colonoscopy (Acute 2013) History of tonsillectomy (Acute) History of tubal ligation (Acute) Status post colectomy (Acute) Family History Mother Thyroid disorder Grandfather Colon cancer Daughter Cancer skin Other Diabetes Social History (Updated 08/11/20 @ 09:38 by Bety Torres NP, HOSPICE CLINICAL MARKETER-C) household members: spouse number of children: 2 current occupational status: retired history of recent travel: No sexually active: Yes Smoking Status: Never smoker alcohol intake: never substance use type: does not use what type of physical activity do you participate in: bicycling, aerobics frequency: daily seatbelt use: always do you feel safe at home: Yes additional social history: - Eric Goodman, pain w/intercourse, ref by Dr. Gregory: Details: MONSE BLEVINS is a 65 year old who presents for new patient discussion for painful intercourse. Referred by Dr Gregory. Had dee last year with out benefit. Not using any estrogen cream Recent pap and mammogram/normal Female Reproductive History Menopausal Treatment: No HRT, No Vaginal Estrogen, No Osphena, No OTC treatments, No prescription non-hormonal treatment Pregancy History 2 Elective abortions Hx Para 2 Spontaneous abortions Hx # Term Pregnancies Ectopic pregnancies Hx # Pregnancies Multiple births # of living children 2 Past Pregnancies Del. Date Name GA/Weeks Outcome Route Bth Weight Infant Gen Labor Lgth Anesthesia Del Locatn Provider FOB Unknown Vonda 1971 Unknown Pat 1975 ROS Const Constitutional: Reports system reviewed and no additional complaints, except as docu Eyes Eyes: Reports system reviewed and no additional complaints, except as docu GI GI: Denies abdominal pain or change in bowel habits : Reports as per HPI Exam Const General: no acute distress Nutritional Appearance: well nourished Orientation: oriented x3 General: bladder normal to palpation External Female Exam: lesion of urethra (nonfriable caruncle) Urethra: lesion (nonfriable caruncle) Speculum Exam - Vagina: atrophic vaginal mucosa, no lesions, nontender Speculum Exam - Cervix: closed cervix (stenotic), other Bimanual Exam- Vagina Uterus: normal bimanual exam, uterine size normal, bladder normal to palpation, uterine shape normal, uterine mobility normal, uterus non-tender Bimanual Exam- Adnexa, other: normal adnexae, no adnexal masses, adnexae non-tender Assessment Plan Problems 1. Atrophic vaginitis N95.2 estradiol cream, kegels 2. Urethral caruncle N36.2 Plan Call report 1 month if still problematic Medications New: estradiol 0.01%(0.1mg/gram) (Estrace) pea sized amount VAGINAL every other day X 4 weeks then twice a week; 42.5 grams 2RF Coding Level of Care Code Off vis,new,level 2 Diagnoses Atrophic vaginitis N95.2 Urethral caruncle N36.2 08/11/20 0938 <Electronically signed by Bety Torres NP HOSPICE CLINICAL MARKETER-C> Date Bety Torres HOSPICE CLINICAL MARKETER HOSPICE CLINICAL MARKETER-C Cosigner Signature: Date (if applicable) CC: Meghna Gregory Start: 05-26-2020 End: 05-26-2020 Thyroid Comments: See Note; NOTES: [facility] Imaging Services [address] [place], [place] [address] Thyroid MR#: [id number] Acct: [id number] Name: MONSE BLEVINS Rep #: [id number] : 1955 F 65 From: Antoine esteban MD PCP: Dr. Meghna Gregory DO Status: REG CLI Study: Thyroid Date of Exam: 05/26/20 Exam# [id number] Ordering Dr: Meghna Gregory DO STUDY: THYROID ULTRASOUND REASON FOR EXAM: Female, 65 years old. Thyroid nodules TECHNIQUE: Ultrasound evaluation of the thyroid was performed with real-time and static santana-scale imaging. COMPARISON: Comparison is made with prior study dated 02/07/2019. FINDINGS: RIGHT LOBE: The right lobe of the thyroid gland measures 4.7 cm x 1 cm x 1.2 cm. There is a homogeneous echotexture. Once again, 2 complex solid/cystic nodule is seen in the upper pole. The larger measures 9 mm x 6 mm x 5 mm. Minimal extra nodular vascularity. LEFT LOBE: The left lobe of the thyroid gland measures 4 cm x 0.8 cm x 0.6 cm. There is a homogeneous echotexture. There are no demonstrated solid, cystic or complex lesions. ISTHMUS: The isthmus measures 2.0 mm. The regional lymph nodes are normal. US/Thyroid IMPRESSION: Stable examination demonstrating 2 subcentimeter nodules in the right lobe. Electronically Signed: Antoine Holbrook, at 12:39 EDT , Service support , CC: Dr. Meghna Gregory DO Equipment Technician: Signed Meghna Gregory Work Phone: Start: 05-12-2020 End: 05-12-2020 Colonoscopy Report Comments: See Note; NOTES: [facility] Medical Records Department [address] [place] [address] Colonoscopy Report MR#: [id number] Acct: [id number] Name: MONSE BLEVINS Rep #: [id number] : 1955 65 From: Dionte Alva MD PCP: Dr. Meghna Gregory DO Status:REG [facility] Patient Name: Monse Blevins Procedure Date: 05/12/2020 7:21 AM Date of : 1955 Age: 65 Procedure: Colonoscopy Indications: Surveillance: Personal history of adenomatous polyps on last colonoscopy 5 years ago Providers: Dionte Alva MD Referring MD: Meghna Gregory Medicines: Monitored Anesthesia Care Patient Profile: This is a 65 year old female. Refer to note in patient chart for documentation of history and physical. Last Colonoscopy: 5 years ago. Complications: No immediate complications. Estimated blood loss: Minimal. Procedure: Pre-Anesthesia Assessment: - Prior to the procedure, a History and Physical was performed, and patient medications and allergies were reviewed. The patient's tolerance of previous anesthesia was also reviewed. The risks and benefits of the procedure and the sedation options and risks were discussed with the patient. All questions were answered, and informed consent was obtained. Prior Anticoagulants: The patient has taken no previous anticoagulant or antiplatelet agents. After reviewing the risks and benefits, the patient was deemed in satisfactory condition to undergo the procedure. After I obtained informed consent, the scope was passed under direct vision. Throughout the procedure, the patient's blood pressure, pulse, and oxygen saturations were monitored continuously. The Colonoscope was introduced through the anus and advanced to the cecum, identified by appendiceal orifice and ileocecal valve. The colonoscopy was performed without difficulty. The patient tolerated the procedure well. The quality of the bowel preparation was good. Scope In: 7:53:41 AM Scope Withdrawal Time 0 hours 9 minutes 46 seconds Scope Out: 8:07:26 AM Total Procedure Duration Time 0 hours 13 minutes 45 seconds Findings: Two semi-pedunculated polyps were found in the rectum. The polyps were medium in size. These polyps were removed with a hot snare. Resection and retrieval were complete. Verification of patient identification for the specimen was done. Estimated blood loss was minimal. The exam was otherwise without abnormality on direct and retroflexion views. Impression: - Two medium polyps in the rectum, removed with a hot snare. Resected and retrieved. - The examination was otherwise normal on direct and retroflexion views. Recommendation: - Discharge patient to home. - Resume previous diet. - Continue present medications. - Await pathology results. - Repeat colonoscopy in 3 years for surveillance of multiple polyps. Procedure Code(s): --- Professional --- 87564, Colonoscopy, flexible; with removal of tumor(s), polyp(s), or other lesion(s) by snare technique Diagnosis Code(s): --- Professional --- Z86.010, Personal history of colonic polyps K62.1, Rectal polyp CPT copyright 2017 [employer]. All rights reserved. The codes documented in this report are preliminary and upon materials manager review may be revised to meet current compliance requirements. Dionte Alva MD 05/12/2020 9:02:44 AM This report has been signed electronically. Number of Addenda: 0 Note Initiated On: 05/12/2020 7:21 AM 05/12/20 0903 Date Dionte Alva MD Cosigner Signature: Date (if indicated) CC: Dr. Dionte Alva MD; Dr. Meghna Gregory, Date Dictated: 05/12/20 0721 Date Transcribed: Equipment Technician: AC Signed Meghna Gregory Start: 05-12-2020 End: 05-12-2020 Operative Report - CC Letter Comments: See Note; NOTES: [facility] Medical Records Department [address] [place] [address] Operative Report - CC Letter MR#: [id number] Acct: [id number] Name: MONSE BLEVINS Rep #: [id number] : 1955 65 From: Dionte Alva MD PCP: Dr. Meghna Gregory, DO Status:REG [facility] 05/12/2020 Meghna Gregory [address] [place] [address] Re : Colonoscopy procedure for Monse Blevins Dear Dr. Gregory This procedure was performed on Tuesday, May 12, 2020. My impressions and recommendations are as follows: Impressions : - Two medium polyps in the rectum, removed with a hot snare. Resected and retrieved. - The examination was otherwise normal on direct and retroflexion views. Recommendations : - Discharge patient to home. - Resume previous diet. - Continue present medications. - Await pathology results. - Repeat colonoscopy in 3 years for surveillance of multiple polyps. My findings are described in the full procedure note, which is enclosed. If I can be of further assistance, please feel free to contact me at Doctor phone number(s): , Work: . Sincerely, Dionte Alva MD 05/12/2020 9:02:44 AM This report has been signed electronically. 05/12/20902 Date Dionte Alva MD Cosigner Signature: Date (if indicated) CC: Dr. Dionte Alva MD; Dr. Meghna Gregory, DO Date Dictated: 05/12/20 0721 Date Transcribed: Equipment Technician: AC Signed Meghna Gregory Start: 05-12-2020 End: 05-12-2020 History and Physical Exam Comments: See Note; NOTES: [facility] Medical Records Department [address] [place] [address] History and Physical 05/12/20 0727 MR#: [id number] Acct: [id number] Name: MONSE BLEVINS Rep #: [id number] : 1955 65 From: Dionte Alva MD PCP: Dr. Meghna Gregory, DO Status:REG [facility] Y Location: [place] [address] History of Present Illness Date of Admission: 05/12/20 The patient is a 65 year old F who had perforated diverticulitis which required laparoscopic sigmoid colectomy. The patient followed up in January and was doing well at that time. She was recommended to have a colonoscopy 3 years after her initial one which was 5 to 6 years ago due to polyps. I recommended performing this 2 months after follow-up which would be around now. Patient is not having any complaints. She says she is tolerating diet with no abdominal pain and no blood in her stool. Past Medical/Surgical History - Planned Operation Planned Operative Procedure/s: COLONOSCOPY Date of Operative Procedure: 05/12/20 Permit Signed: Yes S.O.S: No Is This Patient Having a Total Joint: No - Previous Hospitalizations/Surgeries HX Hospitalizations: No HX of Surgeries: appendectomy, tonsillectomy. 09/19-diverticulitis. COLECTOMY 01/25/20 Any Problems With Anesthesia: Yes - NAUSEA You/Your Family Experience Fever (Hyperthermia) With Anes: No Cholinesterase deficiency: No - Cardiovascular Hx Chest Pain within Last 2 months: No Hx of Irregular Heartbeat and/or Afib: No Hx Heart Attack: No Hx Congestive Heart Failure: No Hx Rheumatic Fever: No Hx Hypertension: No Hx Internal Defibrillator: No Hx Pacemaker: No Hx Cardiac Catheterization: No Hx Cardiac Surgery/Stents/Etc.: No Hx Stress Test: No HX Edema: No Hx Pain in Legs when Walking/Leg Cramps: No - Respiratory Chronic Cough: No HX of Shortness of Breath: No Hoarseness: No Hx Chronic Obstructive Pulmonary Disease (COPD): No Hx Asthma: No Hx Emphysema: No Hx Sleep Apnea: No CPAP: No BIPAP: No Hx Oxygen Use at Home: No Hx Respiratory Tract Infection/Cold (presently): No Do You Snore Loudly (louder than talking or can be heard): No Do You Often Feel Tired/ Fatigued/ Sleepy Dring Daytime?: No Has Anyone Observed You Stop Breathing During Sleep?: No Result (for STOP score): Negative Hx Smoking: No Smoking Status: Never smoker - Gastrointestinal Hx Gastroesophageal Reflux: No Controlled With Meds: No Hx Gastrointestinal Disorders: Yes - DIVERTICULITIS Hx Gastrointestinal Bleed: No Hx Ulcer: No Hx Hiatal Hernia: No Difficulty Chewing/Swallowing: No Recent Onset of Swallowing Problems: No Special diet followed at home: No Hx Unplanned Weight Loss of 20#: No HX Unplanned Weight Gain of 20#: No - Neurological Hx Seizures: No HX Syncope/Blackout Spells/Unconsciousness: No Hx CVA/Stroke: No Hx Transient Ischemic Attacks (TIA): No Hx Multiple Sclerosis: Yes Hx Parkinson's Disease: No Hx Head/Neck Injury: Yes - arthritis in neck Hx Headaches: No Hx Back Injury/Pain: Yes Recent Onset of Speech Difficulty: No Restless Legs: No Does patient have nerve stimulator: No - Blood Disorder Hx Leukemia: No Bleeding Tendencies: No Hx Deep Vein Thrombosis: No Hx High Cholesterol: No Blood Transmitted Disease: No Hx Hepatitis: No Hx Cirrhosis: No Hx Anemia: No Hx Blood Disorders: No - Reproduction : No Is Patient Lactating: No Hx Hysterectomy: No Hx Tubal Ligation: Yes Are You Post Menopause: No - Genitourinary Hx Renal Disease: No Hx Dialysis: No - Musculoskeletal Hx Arthritis: Yes - c-spine per pt. report Hx Rheumatoid Arthritis: No Hx Gout: No Recent Onset of an Orthopedic Problem: No - Endocrine Hx Diabetes: No Insulin: No Thyroid Disease: No Hx Steroid Therapy: Yes - PREDNISONE FOR POISON DEMARCUS - Psycho/Social Hx Substance Use: No Hx Alcohol Use: No Hx Anxiety: No Hx Depression: No Mental Illness: No Hx Dementia: No - Miscellaneous Hx Cancer: No Recent Exposure to Contagious Disease: No Active MRSA: No Hx of C-Diff: No Any Loose Teeth: No Allergies Sulfa (Sulfonamide Antibiotics) Allergy (Intermediate, Verified 05/12/20 07:11) Hives - Discharge Is Pt Admitted From a Fdc, or a Detention: No Who Could Help: After D/C, Where Do you Plan to Go: Return Home - From the PAT History Number of Risk Factors: 2 - Physical Exam Vitals/I O's: Vital Signs Temp Pulse Resp BP Pulse Ox 98.5 F 101 H 16 103/82 H 100 05/12/20 07:16 05/12/20 07:16 05/12/20 07:16 05/12/20 07:16 05/12/20 07:16 Oxygen Delivery Method Room Air Weight: 95 lb 10.89 oz Body Mass Index (BMI) 19.3 General: Alert, Oriented x3 Lungs: Normal air movement Cardiovascular: Regular rate, Regular Rhythm Abdomen: Soft, Non Tender, Non-Distended Assessment/Plan All Active Problems (Last Reviewed 02/05/20 @ 08:41 by Marni Thompson) Acute diverticulitis (Acute) Sepsis (Acute) Sinus tachycardia by electrocardiogram (Acute) Sepsis (Acute) Peritonitis (Acute) Peritonitis (acute) generalized (Acute) 65-year-old female with history of colon polyps 1. Recommend colonoscopy to evaluate the colon for polyps and to evaluate anastomosis. 2. I explained endoscopy in detail to the patient. I explained the risks including but not limited to stroke or heart attack with anesthesia, perforation of the GI tract, bleeding, infection. I explained that any of these could necessitate further emergency surgery. The patient understands and all questions were answered sufficiently. The patient wishes to proceed with procedure. 3. We discussed the current risks associated with COVID-19. While it is understood that there is a community spread of COVID-19, the risk of brcok COVID-19 while at [facility] ([facility]) is very low; however, the risk cannot be completely mitigated because of the community spread of the disease. We discussed in detail the risk of exposure to and/or potential harm posed by the COVID-19 virus with having a surgery/procedure at this time versus the risk of delaying the surgery/procedure. It is not possible to know either the risk of delaying the surgery or procedure or chance of getting an infection with perfect accuracy, but a joint decision was made to proceed at this time with the scheduled surgery/procedure as indicated on the consent form. Patient was notified that we will need to comply with any screening or testing [facility] wishes to perform or that surgery may be delayed for any positive results. Dionte Alva MD Pager: [facility] [address] [place] [address], [address] [place] [address] Office: Surgery Risks - Colonoscopy Risks Include but are not Limited To: Risks include but are not limited to: Bleeding, perforation requiring further surgery, inability to complete colonoscopy requiring barium enema. 05/12/20 0728 <Electronically signed by Dionte Alva MD> Date Dionte Alva MD Cosigner Signature: Date (if applicable) CC: Dr. Dionte Alva MD; Dr. Meghna Gregory DO Signed Meghna Gregory Start: 03-06-2020 End: 03-06-2020 SCREEN MAMM (CAD) W/MARCIANO BILAT Comments: See Note; NOTES: [facility] Imaging Services [address] [place] [id number] SCREEN MAMM (CAD) W/MARCIANO BILAT MR#: [id number] Acct: [id number] Name: MONSE BLEVINS Rep #: [id number] : 1955 F 65 From: Antoine esteban MD PCP: Dr. Meghna Gregory DO Status: REG CLI Study: SCREEN MAMM (CAD) W/MARCIANO BILAT Date of Exam: 0 03/06/20 Exam# [id number] Ordering Dr: Meghna Gregory DO MAMMOGRAPHY - BILATERAL SCREENING REASON FOR EXAM: Female, 65 years old. Routine annual screening examination. PERTINENT HISTORY: Non-contributory. TECHNIQUE: Digital bilateral breast marciano (3D mammographic acquisition) in the CC and MLO projections. 2-D mediolateral oblique (MLO) and craniocaudad (CC) views of both breasts were obtained. CAD: Full Field Digital Mammography with Computer Added Detection was performed. COMPARISON: Comparison is made with prior examination of February 07, 2019 and February 06, 2018. FINDINGS: Breast Composition: The breasts are heterogeneously dense, which may obscure small masses. There are no dominant masses or suspicious calcifications. Stable scattered macrocalcifications. No other significant abnormalities are identified. There has been no significant change since the prior study. BI/SCREEN MAMM (CAD) W/MARCIANO BILAT IMPRESSION: Stable bilateral screening mammogram. Yearly follow-up mammogram recommended. (A) ASSESSMENT CATEGORY: BIRADS Category 2: Benign. A letter regarding these results will be sent to the patient by the facility within 30 days. Approximately 10% of breast cancers are not detected by mammography. A normal mammogram should not delay biopsy of a clinically suspicious abnormality. [id number] Electronically Signed: Antoine Holbrook, at 9:08 EDT , Service support , CC: Dr. Meghna Gregory, Equipment Technician: Signed Meghna Gregory Work Phone: Start: 02-05-2020 End: 02-06-2020 /[email or web address] Comments: See Note; NOTES: [facility] [address] [place] [address]. [address] [place] [address] OFFICE VISIT Date of Service: 02/05/20 MR#: [id number] Acct: [id number] Name: MONSE BLEVINS Rep #: [id number] : 1955 Provider: Dionte madden MD Age/Sex: 64/F Location: [facility] Status: Signed Intake Intake Visit Reasons: 1wk f/u sigmoid colectomy 01/28 Chief Complaint: diverticulitis [employer] 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: No Is patient in pain?: No Allergies Sulfa (Sulfonamide Antibiotics) Allergy (Intermediate, Verified 02/05/20 08:42) Hives Medications Baclofen 10 mg PO TID 01/30/17 [History Confirmed 02/05/20] Gabapentin [Neurontin] 100 mg PO BIDCM 01/30/17 [History Confirmed 02/05/20] Gabapentin [Neurontin] 300 mg PO QHS 01/30/17 [History Confirmed 02/05/20] Alendronate Sodium 35 mg PO TOBIAS 06/06/19 [History Confirmed 02/05/20] Atenolol [Tenormin (beta pat)] 12.5 mg PO DAILY 06/06/19 [History Confirmed 02/05/20] Cholecalciferol (Vitamin D3) [Vitamin D3] 2,000 unit PO DAILY 06/06/19 [History Confirmed 02/05/20] calcium carbonate 500 mg calcium (1,250 mg) chewable tablet 500 mg PO DAILY 10/07/19 [History Confirmed 02/05/20] Acetaminophen [Tylenol Tablet] 650 mg PO Q4H PRN PRN tab 01/29/20 [Rx Confirmed 02/05/20] Ibuprofen [Motrin] 600 mg PO Q6H PRN PRN tab 01/29/20 [Rx Confirmed 02/05/20] Pantoprazole Sodium [Protonix] 40 mg PO BID 30 Days #60 tab 01/29/20 [Rx Confirmed 02/05/20] Subjective Details: Patient is doing well. She reports she is having normal bowel movements and tolerated diet with no abdominal pain. She reports no drainage from her incision. Objective Details: Incision is clean dry and intact and healing well with no drainage or ecchymosis or erythema. Assessment Plan Problems 1. Acute diverticulitis K57.92 Plan Patient is doing well after laparoscopic sigmoid colectomy for perforated diverticulitis. She is tolerating a diet and having minimal abdominal pain. I did advise her to limit her activity for the first 4 weeks postoperatively. The patient has not had a colonoscopy in over 5 years and she was recommended to have one in 3 years due to polyps in the colon. She is overdue. I recommend colonoscopy about 2 months after surgery once everything is healed. I explained endoscopy in detail to the patient. I explained the risks including but not limited to stroke or heart attack with anesthesia, perforation of the GI tract, bleeding, infection. I explained that any of these could necessitate further emergency surgery. The patient understands and all questions were answered sufficiently. The patient wishes to proceed with procedure. Dionte Alva MD Pager: [facility] [address] [place] [address], [address] [place] [address] Office: Orders Orders: Colonoscopy Today Z86.010 Coding Level of Care Code Global Post Op Diagnoses Acute diverticulitis K57.92 02/06/20 1015 <Electronically signed by Dionte Alva MD> Date Dionte Alva MD Cosigner Signature: Date (if applicable) CC: Meghan Taylor Start: 01-31-2020 End: 01-31-2020 Venous Duplex US - Tyrone Extrem Comments: See Note; NOTES: [facility] [address] [place] [id number] Venous Duplex US - Tyrone Extrem 01/31/20 1450 MR#: [id number] Acct: [id number] Name: MONSE BLEVINS Rep #: [id number] : 1955 64 From: Huseyin Hilton MD Attending Dr: Meghna Gregory DO Status: REG CL I Ordering Dr: Meghna Gregory DO Date: 01/31/20 Location: [facility] Sex: F C Admitted: Reason For Study: Edema RIGHT LEFT GSV is normal. GSV is normal. CFV is compressible, spontaneous, phasic, CFV is compressible, spontaneous, phasic, competent and demonstrates normal competent, and demonstrates normal augmentation. augmentation. FV is compressible, spontaneous, phasic, FV is compressible, spontaneous, phasic, competent and demonstrates normal competent and demonstrates normal augmentation. augmentation. POP V is compressible, spontaneous, phasic, POP V is compressible, spontaneous, phasic, competent and demonstrates normal competent and demonstrates normal augmentation. augmentation. T/P Trunk is compressible. T/P Trunk is compressible. PTV is compressible. PTV is compressible. RT PerV is compressible. LT PerV is compressible. Procedure Exam performed in department. A preliminary report was called and/or faxed to Bri. Interpretation Summary No evidence for acute deep venous thrombosis bilateral lower extremities with patent and compressible bilateral great saphenous veins. _ Ordering Physician: Meghna Gregory Referring Physician: Meghna Gregory Performed By: Valorie Hastings RVT 01/31/201829 Date Huseyin Hilton MD CC: Meghna Gregory DO Date Dictated: 01/31/20 1450 Date Transcribed: 01/31/201829 Equipment Technician: Signed Meghna Gregory Work Phone: Start: 01-23-2020 End: 01-23-2020 Emergency Department Summary Comments: See Note; NOTES: [facility] Medical Records Department [address] [place] [address] Emergency Department Summary 01/23/20 MR#: [id number] Acct: [id number] Name: MONSE BLEVINS Rep #: [id number] : 1955 64 From: Pancho Dexter MD PCP: Meghna Gregory DO Status: REG ER History of Present Illness Chief Complaint: Abd Pain Informant: Patient Onset: Hours Context: Sudden Onset Timing: Continuous Quality: Pain, cramping Location: Epigastrium to pubis symphysis Current Severity: Moderate Maximum Severity: Severe Worsened by: Movement Relieved by: Nothing Associated Symptoms: Nausea Narrative: Patient is a 64-year-old woman who has history of diverticulitis and urinary tract infection. She presents because of abrupt onset of abdominal pain that is generalized. She had a bowel movement this morning that had hard stool. She had a small bowel movement this afternoon which was soft. She did not notice blood or mucus in the stool. She denies fever, chills night sweats. She denies URI symptoms. She denies cardiac symptoms. She denies urologic symptoms. She states she is never had pain like this before. Prior similar symptoms: No Recent Illness/Hospitalization: Yes - September 2019 for diverticulitis - Past Medical History (1) Diverticulitis of large intestine with abscess Status: Acute Past Medical History - Allergies and Home Meds Allergies/Adverse Reactions: Allergies Sulfa (Sulfonamide Antibiotics) Allergy (Intermediate, Verified 01/23/20 18:06) [facility] Primary Care Physician: Meghna Gregory DO [Primary Care Provider] - Prior records reviewed: Yes Surgical History: appendectomy, - - Tubal ligation Lives: Spouse/ Significant Other Smoking Status: Never smoker Alcohol: None Drugs: None Review of Systems General: Denies: Chills, Fever, Malaise, Subjective, Sweats Eyes: Denies: Visual changes - bilaterally, Blurred Vision - bilaterally ENT: Denies: Rhinorrhea, Sore throat Cardiovascular: Denies: Chest pain, Palpitations Gastrointestinal: Reports: Abdominal pain, Nausea. Denies: Vomiting, Diarrhea, Constipation, Melena, Hematochezia Genitourinary: Denies: Dysuria, Hematuria, Frequency Musculoskeletal: Denies: Myalgias, Arthralgias, Neck pain, Back pain, Swelling, Extremity Pain, -, - Skin: Denies: Rash, Abrasions Neurological: Denies: Headache, Weakness, Numbness Psych: Denies: Depression, Anxiety Endocrine: Denies: Polyuria, Polydipsia Hematologic: Denies: Easy bruising, Easy bleeding Allergy: Denies: Uticaria, Swelling of the mouth Physical Exam Vital Signs/Narrative: Vital Signs 01/23/20 18:07 97.4 F L 87 22 H 104/64 Inital Vital Signs reviewed: Yes General: Well nourished, Well developed, Acute Distress Head: Normocephalic, Atraumatic Eyes: Perrl, EOMI. Negative for: Pale conjunctiva ENT: No rhinorrhea, TM's clear. Negative for: Dry mucous membranes Neck: Supple, Nontender, No lymphadenopathy, No JVD Cardiovascular: Regular rate, Regular rhythm, No murmurs, Normal S1, Normal S2 Respiratory: No distress, CTA bilaterally, Chest nontender Abdomen: No masses, Tender, Guarding, Rebound tenderness, Hypoactive bowel sounds. Negative for: Soft, Nontender, Nondistended, Normal bowel sounds, Hepatomegaly, Splenomegaly, Mass, Pulsatile mass, Ventral hernia Rectal: Deferred Back: Nontender, Normal Inspection. Negative for: CVA tenderness Extremities: Nontender, No edema Skin: Normal color, No rash, No Trauma. Negative for: Cyanosis, Diaphoresis, Jaundice Neurological: Alert, Oriented x3, Cranial nerves II-XII grossly intact, Normal Strength, Normal Sensation Psychological: Normal affect Diagnostic/Tx/Re-eval Impressions Abdomen/Pelvis CT 01/23/20 18:22 IMPRESSION: 1. Colonic diverticulosis. Deep pelvic fatty stranding compatible with diverticulitis. There is a small amount of free fluid in the deep pelvis. No extraluminal air is seen. 2. There is wall thickening of several loops of small bowel in the pelvis. Findings may represent reactive inflammation associated with probable diverticulitis versus focal enteritis. 3. Small hiatal hernia. 4. Small bilateral renal cysts. 5. Small fat-containing umbilical hernia. Electronically Signed: Colton Serna MD at 20:35 EDT , Service support , 01/23/20 18:22 Abdomen/Pelvis W IV Cont ONLY [CT] Stat Laboratory Results WBC 23.6 H RBC 4.60 Hgb 13.5 Hct 42.5 MCV 92.4 MCH 29.3 MCHC 31.8 L RDW Std Deviation 44.4 H RDW Coeff of May 13.2 Plt Count 551 H MPV 8.7 Immature Gran % (Auto) 0.400 Neut % (Auto) 80.8 H Lymph % (Auto) 11.5 L [place] % (Auto) 6.2 Eos % (Auto) 0.8 Baso % (Auto) 0.3 Absolute Neuts (auto) 19.1 H Absolute Lymphs (auto) 2.71 Nucleated RBC % 0 Sodium 141 Potassium 3.7 Chloride 107 Carbon Dioxide 29.0 Anion Gap 5 BUN 21 H Creatinine 0.83 Estim Creat Clear Calc 49.03 Est GFR (MDRD) Af Amer 88 Est GFR (MDRD) Non-Af 73 BUN/Creatinine Ratio 25.2 H Glucose 132 H Lactic Acid 2.0 Calcium 9.4 Total Bilirubin 0.20 AST 25 ALT 23 Alkaline Phosphatase 79 Total Protein 6.7 Albumin 3.6 Globulin 3.1 Albumin/Globulin Ratio 1.2 Lipase 122 Patient's CAT scan reveals evidence of diverticulitis with inflammatory changes and Inflammatory changes small bowel wall that may be reactive to the diverticulitis. The hospitalist was paged for admission. Patient did receive 4.5 g of Zosyn IV piggyback. - EKG Initial EKG Interpretation: Sinus Tachycardia - Rate 104. NH interval 114 ms. QRS duration 74 ms. QT duration 358 ms. [place] is normal. There is artifact secondary to patient's breathing and pain. - Medical Decision Making Patient has a surgical abdomen. Concerned she has a perforated viscus secondary to peptic ulcer disease versus diverticulitis. In the differential one needs entertain possibility of inflammatory bowel disorder, this is unlikely. Appropriate blood work was ordered, pain medicine and CT of the abdomen with IV contrast. ED Disposition - Plan for ED Patient: Disposition: Home or Assisted Living Diagnosis: Acute diverticulitis, Peritonitis (acute) generalized, Sepsis, Sinus tachycardia by electrocardiogram Referrals: Meghna Gregory, DO [Primary Care Provider] - What to do if you have Problems For any increased pain, shortness of breath, bleeding, nausea or vomiting, chest pain, or any unexpected problems, contact your Primary Care Provider. Call [facility] ([phone]) or report to the closest Emergency Room. Call 911 if necessary. 01/23/20 8970 <Electronically signed by Pancho Dexter MD> Date Pancho Dexter MD Cosigner Signature (If Indicated): Date CC: Meghna Gregory DO Meghna Gregory Start: 01-23-2020 End: 01-23-2020 Abdomen/Pelvis W IV Cont ONLY Comments: See Note; NOTES: [facility] Imaging Services [address] [place] [address] Abdomen/Pelvis W IV Cont ONLY MR#: [id number] Acct: [id number] Name: MONSE BLEVINS Rep #: [id number] : 1955 F 64 From: Colton Serna MD PCP: Meghna Gregory DO Status: REG ER Study: Abdomen/Pelvis W IV Cont ONLY Date of Exam: 01/23/20 Exam# [id number] Ordering Dr: Pancho Dexter MD STUDY: CT ABDOMEN AND PELVIS WITH CONTRAST REASON FOR EXAM: Female, 64 years old. PT STATED ABDOM PAIN, NAUSEA, ELEVATED WBC, HX OF APPY , TUBAL, DIVER RADIATION DOSAGE (If Supplied By Facility): CTDIvol = ( 9.56 ) mGy, DLP = ( 269.94 ) mGycm TECHNIQUE: Transaxial images were obtained from the dome of the diaphragm to the symphysis pubis without oral contrast. IV 100mL Isovue-300 was administered. Sagittal and coronal images were reconstructed. Individualized dose optimization techniques were used for this CT. COMPARISON: Previous study of 10/11/2019 FINDINGS: The visualized lung bases are unremarkable. The visualized portions of the heart are within normal limits. Normal liver. Normal gallbladder and extrahepatic biliary system. Normal spleen. Normal pancreas. Normal bilateral adrenal glands. There are several small right renal cysts. There are several small left renal cyst. There is a small hiatal hernia. There is wall thickening of several loops of small bowel in the pelvis. There is colonic diverticulosis. There is deep pelvic fatty stranding compatible with diverticulitis. There is a small amount of free fluid in the deep pelvis. There is non-visualization of the appendix. There are calcified plaques of the abdominal aorta. Normal inferior vena cava. Normal retroperitoneum. Normal urinary bladder. Uterus and adnexal structures appear normal. There are bilateral tubal ligation clips. There is a small umbilical hernia containing fat. There mild degenerative changes of the visualized thoracolumbar spine. CT/Abdomen/Pelvis W IV Cont ONLY IMPRESSION: 1. Colonic diverticulosis. Deep pelvic fatty stranding compatible with diverticulitis. There is a small amount of free fluid in the deep pelvis. No extraluminal air is seen. 2. There is wall thickening of several loops of small bowel in the pelvis. Findings may represent reactive inflammation associated with probable diverticulitis versus focal enteritis. 3. Small hiatal hernia. 4. Small bilateral renal cysts. 5. Small fat-containing umbilical hernia. Electronically Signed: Colton Serna MD at 20:35 EDT , Service support , CC: Meghna Gregory DO; Pancho Dexter MD Equipment Technician: Signed Meghna Gregory Start: 10-24-2019 End: 10-24-2019 Surgery Visit Report Comments: See Note; NOTES: [facility] [address] [place] [address]. [address] [place] [address] OFFICE VISIT Date of Service: 10/24/19 MR#: [id number] Acct: [id number] Name: MONSE BLEVINS Rep #: [id number] : 1955 Provider: Dionte Alva MD Age/Sex: 64/F Location: [facility] Status: Signed Intake Intake Visit Reasons: Follow up on CT 10/11 Chief Complaint: discuss CT E Commerce 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: No Is patient in pain?: No Allergies Sulfa (Sulfonamide Antibiotics) Allergy (Intermediate, Verified 10/24/19 13:17) Hives Medications Baclofen 10 mg PO TID 01/30/17 [History Confirmed 10/24/19] Gabapentin [Neurontin] 100 mg PO BIDCM 01/30/17 [History Confirmed 10/24/19] Gabapentin [Neurontin] 300 mg PO QHS 01/30/17 [History Confirmed 10/24/19] Alendronate Sodium 35 mg PO TOBIAS 06/06/19 [History Confirmed 10/24/19] Atenolol [Tenormin (beta pat)] 12.5 mg PO DAILY 06/06/19 [History Confirmed 10/24/19] Cholecalciferol (Vitamin D3) [Vitamin D3] 2,000 unit PO DAILY 06/06/19 [History Confirmed 10/24/19] calcium carbonate 500 mg calcium (1,250 mg) chewable tablet 500 mg PO DAILY 10/07/19 [History Confirmed 10/24/19] nystatin 100,000 unit/mL oral suspension 5 ml PO Q6H #200 ml 10/07/19 [Rx Confirmed 10/24/19] Is last menstrual period known: No Post menopausal: No Patient : No PFSH Medical History Back pain (Acute) History of diverticulitis (Acute) History of multiple sclerosis (Acute) Osteoarthritis (Acute) Osteoporosis (Acute) HTN (hypertension) (Chronic) Surgical History History of appendectomy (Acute) History of colonoscopy (Acute 2013) History of tonsillectomy (Acute) History of tubal ligation (Acute) Family History Mother Thyroid disorder Grandfather Colon cancer Daughter Cancer skin Other Diabetes Social History (Updated 10/24/19 @ 14:47 by Dionte Alva MD) Smoking Status: Never smoker alcohol intake: never HPI HPI HPI: MONSE BLEVINS, is a 64 F who presents to the office today for HPI HPI HPI: MONSE BLEVINS, is a 64 F who presents to the office today for Follow-up after CT scan. Patient reports no issues at this time except for back pain from her hospital stay. ROS General General: No weight change or fatigue Musc Musculoskeletal: Yes back problems Cardio Cardiovascular: No murmur, pacemaker, heart disease, atrial fibrillation, high blood pressure, heart attack, heart stent, palpitations, shortness of breat with exertion or chest pain Psych Psychiatric: No depression or anxiety Resp Respiratory: No shortness of breath, No sleep apnea, No cough, No COPD, No asthma, No emphysema, No wheezing Gastro Gastrointestinal: No abdominal pain, No nausea or vomiting, No diarrhea, No constipation, No blood in stool, No acid reflux, No hemorrhoids, No ulcers, No gallbladder problem, No black,tarry stools Daniel Hematologic: No blood thinners Exam Const General: cooperative Orientation: alert, oriented x3 Resp Effort AND Inspection: normal respiratory effort Auscultation: clear to auscultation bilaterally Cardio Rate: regular rate Rhythm: regular rhythm Heart Sounds: no murmurs GI Inspection: non-distended Palpation: soft, nontender Assessment AND Plan Problems 1. Diverticulitis of large intestine with abscess without bleeding K57.20 Plan Patient had diverticulitis with abscess. I repeated CT scan and it shows the abscess has resolved. Patient is doing well otherwise and her thrush has resolved. I discussed elective laparoscopic sigmoid colectomy. I offer the patient sigmoid colectomy. I did probation counselor her that about 50% of people with complicated diverticulitis will have a recurrence of diverticulitis in the future. And only 50% of those people will have complicated diverticulitis. At this time the patient is continue to observe but will come back if there is any concern or desire for elective surgery. Dionte Alva MD Pager: [facility] [address] [place] [address] [address] [place] [address] Office: Coding Level of Care Code Off vis,est,level 3 Diagnoses Diverticulitis of large intestine with abscess without bleeding K57.20 Diverticulitis bleeding: without bleeding 10/24/19 1447 <Electronically signed by Dionte Alva MD> Date Dionte Alva MD Cosigner Signature: Date (if applicable) CC: Meghna Boltonon DO Meghna Gregory Start: 10-11-2019 End: 10-13-2019 Abdomen/Pelvis WITH Contrast Comments: See Note; NOTES: [facility] Imaging Services [address] [place] [address] Abdomen/Pelvis WITH Contrast MR#: [id number] Acct: [id number] Name: MONSE BLEVINS Rep #: [id number] : 1955 F 64 From: Lory Carlson MD PCP: Meghna Gregory DO Status: REG CLI Study: Abdomen/Pelvis WITH Contrast Date of Exam: 10/11/19 Exam# [id number] Ordering Dr: Dionte Alva MD STUDY: CT ABDOMEN AND PELVIS WITH CONTRAST REASON FOR EXAM: Female, 64 years old. F/U DIVERTICULITIS. Pt on IV ATB and then oral ATB x 10 days. Prior appendectomy. Pt has MS RADIATION DOSAGE (If Supplied By Facility): CTDIvol = ( 11.19 ) mGy, DLP = ( 242.77 ) mGycm TECHNIQUE: Transaxial images were obtained from the dome of the diaphragm to the symphysis pubis without oral contrast. Oral and amp; IV Readi-CAT and amp; 100mL Isovue-300 was administered. Sagittal and coronal images were reconstructed. Individualized dose optimization techniques were used for this CT. COMPARISON: 09/27/2019. FINDINGS: The visualized lung bases are unremarkable. The visualized portions of the heart are within normal limits. Normal liver. There is non-visualization of the gallbladder, which may be secondary to either contraction or a prior cholecystectomy. Normal spleen. Normal pancreas. Normal bilateral adrenal glands. Normal right kidney. Normal left kidney. Normal visualized stomach. Normal small intestine. There is contrast demonstrated within the right colon suggestive of sequela previous study performed with contrast or barium. There is diverticulosis of the sigmoid with mild inflammatory process, cannot exclude very early diverticulitis. This is seen on axial images 64 through 68 and coronal images 59 through 64.. Distinct appendix not seen with no inflammatory process in the region of the cecum. Normal abdominal aorta. Normal inferior vena cava. Normal retroperitoneum. Normal urinary bladder. Normal abdominal wall. Mild scoliosis of the lumbar spine, convexity to the left. CT/Abdomen/Pelvis WITH Contrast IMPRESSION: Diverticulosis with possible early diverticulitis at the level of the sigmoid as described above. No bowel obstruction. Nonvisualized gallbladder, remainder of abdominal viscera are unremarkable. Electronically Signed: Lory Carlson MD at 3:12 EST , Service support , CC: Dionte Alva MD; Meghna Gregory DO Equipment Technician: Signed Dionte Alva Work Phone: Start: 10-07-2019 End: 10-07-2019 Surgery Visit Report Comments: See Note; NOTES: [facility] [address] [facility] [place] [address] OFFICE VISIT Date of Service: 10/07/19 MR#: [id number] Acct: [id number] Name: MONSE BLEVINS Rep #: [id number] : 1955 Provider: Dionte Alva MD Age/Sex: 64/F Location: [facility] Status: Signed Intake Vital Signs10/07/19 BMI 19.2 10/07/19 Height 4 ft 11 in 10/07/19 Weight: 98 lb 6 oz Intake Visit Reasons: 1 W FU Chief Complaint: RECHECK ABD PAIN E Commerce 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: No Is patient in pain?: No Allergies Sulfa (Sulfonamide Antibiotics) Allergy (Intermediate, Verified 10/07/19 08:33) Hives Medications Baclofen 10 mg PO TID 01/30/17 [History Confirmed 10/07/19] Gabapentin [Neurontin] 100 mg PO BIDCM 01/30/17 [History Confirmed 10/07/19] Gabapentin [Neurontin] 300 mg PO QHS 01/30/17 [History Confirmed 10/07/19] Alendronate Sodium 35 mg PO TOBIAS 06/06/19 [History Confirmed 10/07/19] Atenolol [Tenormin (beta pat)] 12.5 mg PO DAILY 06/06/19 [History Confirmed 10/07/19] Cholecalciferol (Vitamin D3) [Vitamin D3] 2,000 unit PO DAILY 06/06/19 [History Confirmed 10/07/19] Amoxicillin/Potassium Clav [Augmentin 875-125 Tablet] 1 ea PO BID 10 Days #20 tab 09/30/19 [Rx Confirmed 10/07/19] calcium carbonate 500 mg calcium (1,250 mg) chewable tablet 500 mg PO DAILY 10/07/19 [History Confirmed 10/07/19] nystatin 100,000 unit/mL oral suspension 5 ml PO Q6H #200 ml 10/07/19 [Rx Confirmed 10/07/19] Is last menstrual period known: No Post menopausal: Yes Patient : No PFSH Medical History (Updated 10/07/19 @ 08:31 by Nallely Wynn) Back pain (Acute) History of diverticulitis (Acute) History of multiple sclerosis (Acute) Osteoarthritis (Acute) Osteoporosis (Acute) HTN (hypertension) (Chronic) Surgical History (Updated 10/07/19 @ 08:31 by Nallely Wynn) History of colonoscopy (Acute 2013) History of tubal ligation (Acute) History of appendectomy (Acute) History of tonsillectomy (Acute) Family History (Updated 10/07/19 @ 08:32 by Nallely Wynn) Mother Thyroid disorder Grandfather Colon cancer Daughter Cancer skin Other Diabetes Social History (Updated 10/07/19 @ 09:30 by Dionte Alva MD) Smoking Status: Never smoker alcohol intake: never HPI HPI HPI: MONSE BLEVINS, is a 64 F who presents to the office today for HPI HPI HPI: MONSE BLEVINS, is a 64 F who presents to the office today for follow-up after hospitalization for diverticulitis with abscess. Patient reports she has been doing well overall. She has not had any fevers or chills. She did eat salad last night and had some cramping this morning but this was relieved when she had a bowel movement. She is currently having no abdominal pain. She did complain of sore throat and soreness of the back of her tongue. ROS General General: Yes fatigue; no weight change Musc Musculoskeletal: Yes back problems Cardio Cardiovascular: No murmur, pacemaker, heart disease, atrial fibrillation, high blood pressure, heart attack, heart stent, palpitations, shortness of breat with exertion or chest pain Psych Psychiatric: No depression or anxiety Resp Respiratory: No shortness of breath, No sleep apnea, No cough, No COPD, No asthma, No emphysema, No wheezing Gastro Gastrointestinal: No abdominal pain, No nausea or vomiting, No diarrhea, No constipation, No blood in stool, No acid reflux, No hemorrhoids, No ulcers, No gallbladder problem, No black,tarry stools Daniel Hematologic: No blood thinners Exam Const General: cooperative Orientation: alert, oriented x3 Resp Effort AND Inspection: normal respiratory effort Auscultation: clear to auscultation bilaterally Cardio Rate: regular rate Rhythm: regular rhythm Heart Sounds: no murmurs GI Inspection: non-distended Palpation: soft, nontender Assessment AND Plan Problems 1. Diverticulitis of large intestine with abscess without bleeding K57.20 2. Thrush B37.0 Plan The patient has diverticulitis with abscess. I will schedule a repeat CT scan to ensure that the abscess is shrinking. She is still on oral antibiotics but she has developed thrush. I have started on some nystatin swish and swallow. Patient will follow-up next week to discuss CT scan and schedule follow-up colonoscopy and discuss elective colectomy. Dionte Alva MD Pager: [facility] [address] [place] [address], [address] [place] [address] Office: Orders Orders: Medications New: Coding Level of Care Code Off vis,est,level 2 Diagnoses Diverticulitis of large intestine with abscess without bleeding K57.20 Diverticulitis bleeding: without bleeding Thrush B37.0 10/07/19 0930 <Electronically signed by Dionte Alva MD> Date Dionte Alva MD Cosigner Signature: Date (if applicable) CC: Meghna Taylor Start: 09-27-2019 End: 09-27-2019 Emergency Department Summary Comments: See Note; NOTES: [facility] Medical Records Department [address] [place] [address] Emergency Department Summary 09/27/19 1846 MR#: [id number] Acct: [id number] Name: MONSE BLEVINS Rep #: [id number] : 1955 64 From: Mis Arrington DO PCP: Meghna Gregory DO Status: REG ER - ER Visit Summary Date of Service: 09/27/19 Chief Complaint: [Abdominal pain] History of Present Illness: The patient is a 64 F [Zentz to the emergency department complaint of abdominal pain for last 3 days. Patient was seen at the [facility] yesterday and diagnosed with a urinary tract infection. Patient continued to have abdominal pain and was seen by nurse practitioner in her primary care physician's office today who ordered lab work and a CT scan of the abdomen pelvis. Patient was told to come to the emergency department. Patient had an elevated white blood cell count of 22,[address] scan that showed acute diverticulitis with an abscess. Patient has no history of diverticulitis. Patient has had prior appendectomy. Patient has a history of MS. Patient denies any fever. She denies any blood in her stool or black tarry stool. She denies urinary symptoms.] Physical Examination: [HEENT-PERRLA, EOMI. Cranial nerves II through XII grossly intact. TMs clear. Mucous membranes moist. No adenopathy. Cardiovascular-regular rate and rhythm without murmur or ectopy Lungs-clear to auscultation, chest wall stable without crepitus or subcu emphysema Abdomen-normoactive bowel sounds, soft. Patient has tenderness diffusely over the suprapubic region and the left lower quadrant. There is guarding. There is no rebound, rigidity, or pedal signs. Extremities-intact 4, normal range of motion, normal pulses, atraumatic] Test Results: [Labs already performed in computer showed an elevated white blood cell count of 22,000. Chemistries unremarkable. LFTs unremarkable. CT scan of the abdomen pelvis showed acute diverticulitis with an abscess.] Emergency Department Course and Treatment: [She was started on Cipro and Flagyl IV. Case discussed with general surgeon on-call Dr. Mirza who will evaluate patient for admission] Treatment Plan: [Admit for IV antibiotics] Disposition: [Admit Impression: [Acute diverticulitis with abscess] This note was generated with [employer] dictation software. It may contain incorrect words, spelling, and punctuation that were not noted in review of the chart prior to signing ED Disposition - Plan for ED Patient: Referrals: Meghna Gregory DO [Primary Care Provider] - What to do if you have Problems For any increased pain, shortness of breath, bleeding, nausea or vomiting, chest pain, or any unexpected problems, contact your Primary Care Provider. Call [facility] ([phone]) or report to the closest Emergency Room. Call 911 if necessary. 09/27/19 1848 <Electronically signed by Mis Arrington DO> Date Mis Arrington DO Cosigner Signature (If Indicated): Date CC: Meghna Taylor Start: 09-27-2019 End: 09-27-2019 Abdomen/Pelvis WITH Contrast Comments: See Note; NOTES: [facility] Imaging Services [address] [place] [address] Abdomen/Pelvis WITH Contrast MR#: [id number] Acct: [id number] Name: MONSE BLEVINS Rep #: [id number] : 1955 F 64 From: Sundar Mcfarland DO PCP: Meghna Gregory DO Status: REG CLI Study: Abdomen/Pelvis WITH Contrast Date of Exam: 09/27/19 Exam# [id number] Ordering Dr: Sammi Fitzgerald STUDY: CT ABDOMEN AND PELVIS WITH CONTRAST REASON FOR EXAM: Female, 64 years old. Diffuse abdominal pain for 2 days. History of multiple sclerosis. History of prior appendectomy. RADIATION DOSAGE (If Supplied By Facility): CTDIvol = ( 10.75 ) mGy, DLP = ( 216.15 ) mGycm TECHNIQUE: Transaxial images were obtained from the dome of the diaphragm to the symphysis pubis with oral contrast. Oral and amp; IV Gastrografin and amp; 100mL Isovue-300 was administered. Sagittal and coronal images were reconstructed. Individualized dose optimization techniques were used for this CT. COMPARISON: None. FINDINGS: The visualized lung bases are unremarkable. The visualized portions of the heart are within normal limits. Normal liver. Normal gallbladder and extrahepatic biliary system. Normal spleen. Normal pancreas. Normal bilateral adrenal glands. Multiple small right renal cysts. There is no renal calculi enhancing mass or hydronephrosis. Small left renal cortical cyst. There is no enhancing mass or renal calculi. No high processes. Question type I hiatal hernia. The stomach is otherwise unremarkable. Normal small intestine. There is evidence of sigmoid diverticulitis without obvious perforation. There are fluid densities along the the superior aspect of the mid sigmoid wall which may represent intramural fluid collection/abscess. Colon is otherwise grossly normal. There is non-visualization of the appendix. Normal abdominal aorta. Normal inferior vena cava. Normal retroperitoneum. Normal urinary bladder. Uterus is grossly normal. There is evidence of tubal ligation. There is no adnexal mass. There is no pelvic lymphadenopathy. No free air or free fluid is seen within the cavity. Normal abdominal wall. There are diffuse degenerative changes of the visualized lumbar spine. CT/Abdomen/Pelvis WITH Contrast IMPRESSION: 1. Sigmoid diverticulitis with intramural abscess. 2. Question small hiatal hernia. 3. Otherwise normal CT of the abdomen and pelvis. Electronically Signed: Sundar Mcfarland DO at 17:23 EST Tel [phone], Service support , CC: FLORENCIA Fitzgerald; Meghna Gregory DO Equipment Technician: Signed Sammi Fitzgerald Work Phone: Start: 09-26-2019 End: 09-26-2019 Urgent Care Visit Report Comments: See Note; NOTES: [facility] [address] [place] [address] [address] [place] [address] OFFICE VISIT Date of Service: 09/26/19 MR#: [id number] Acct: [id number] Name: MONSE BLEVINS Rep #: [id number] : 1955 Provider: Jatin KUO Age/Sex: 64/F Location: [facility] Status: Signed Intake Vital Signs09/26/19 BMI 20.2 09/26/19 Height 4 ft 11 in 09/26/19 Weight: 99 lb 2 oz 09/26/19 BMI 20.0 09/26/19 BP 98/74 Intake Visit Reasons: UTI SYMPTOMS Chief Complaint: Dysuria, urinary frequency Allergies Sulfa (Sulfonamide Antibiotics) Allergy (Intermediate, Verified 09/26/19 14:24) Hives Medications Baclofen 10 mg PO TID 01/30/17 [History Confirmed 09/26/19] Fluticasone 0.05% [Flonase Nasal [place]] 1 spray NASAL DAILY 01/30/17 [History Confirmed 09/26/19] Gabapentin [Neurontin] 100 mg PO BIDCM 01/30/17 [History Confirmed 09/26/19] Gabapentin [Neurontin] 300 mg PO QHS 01/30/17 [History Confirmed 09/26/19] Ocrelizumab [Ocrevus] 600 mg IV 07/25/18 [History Confirmed 09/26/19] Alendronate Sodium 35 mg PO QWEEK 06/06/19 [History Confirmed 09/26/19] Atenolol [Tenormin (beta Pat)] 12.5 mg PO DAILY 06/06/19 [History Confirmed 09/26/19] Cholecalciferol (Vitamin D3) [Vitamin D3] 2,000 unit PO DAILY 06/06/19 [History Confirmed 09/26/19] nitrofurantoin monohydrate/macrocrystals 100 mg capsule 100 mg PO BID #10 cap 09/26/19 [Rx Confirmed 09/26/19] PFSH Surgical History (Updated 09/26/19 @ 14:28 by Kevin Walker) History of appendectomy (Acute) History of tonsillectomy (Acute) Family History (Updated 09/26/19 @ 14:28 by Kevin Walker) Other Diabetes Social History (Updated 09/26/19 @ 14:35 by AYAAN Jerome) Smoking Status: Never smoker alcohol intake: never HPI HPI Chief Complaint: Dysuria, urinary frequency Details: MONSE BLEVINS, is a 64 F who presents to the office today for initial evaluation approximately 24-hour history of dysuria and urinary frequency no complaints of fever, chills, sweats, rash, back pain, nausea/vomiting, chest pressure/shortness of breath/wheeze, changes in color or character of urine, and no melena/hematochezia. Patient notes getting over a gastroenteritis with lots of loose stool approximately a week ago with those symptoms having since cleared up. She has taken no jzuz-cnk-hylvxlg products to assist with symptoms. She notes no other associated symptoms no other alleviating or aggravating factors. ROS Const Constitutional: No other (ROS negative x14 other than as noted above) Exam Const General: cooperative, healthy appearing, comfortable, no acute distress Nutritional Appearance: average body habitus Orientation: alert, awake, oriented x3 Chest Chest palpation AND inspection: normal inspection of the chest Resp Effort AND Inspection: normal respiratory effort, able to speak in complete sentences, symmetric chest movement Cardio Rate: regular rate Pulses: radial pulses present GI Inspection: normal to inspection Palpation: soft, no hepatosplenomegaly, not firm, no guarding, tender suprapubicly; Negative for not in the epigastrum, not in the LLQ, not in the RLQ, not in the LUQ, not in the RUQ, not at McBurney's point, Berry's sign negative or with no rebound tenderness General: No CVA tenderness, other (See urinalysis dip results) Skin General: no rashes or lesions noted Neuro General: alert, awake, oriented x3, gait normal Cognition: normal cognition Speech: speech normal Gait: normal gait Motor: muscle tone normal throughout Sensory Exam: no sensory deficits noted Psych Appearance: grossly normal Mental Status: mental status grossly normal Mood: congruent mood Affect: normal affect Speech and Movement: speech and movement normal Attitude: cooperative Thought Process: normal Thought Content: normal Judgment: judgment good Results POC Urinalysis Dip (Clinic) Office Urine Color ANITA Last Edit by Kevin Walker on 09/26/19 14:30 Assessment AND Plan Problems 1. UTI (urinary tract infection) N39.0 Plan Macrobid as prescribed today. Reinforce appropriate hygiene care. Clear fluids, rest, Advil/Tylenol as needed for symptomatic relief. Follow-up with PCP in 3 to 5 days should symptoms not improve, sooner should symptoms worsen or any other concerns develop. Patient states acknowledging understanding all the above. This note was generated with [employer] software. It may contain incorrect words, spelling, and punctuation that were not noted in checking the note before signing. Orders Orders: Medications New: nitrofurantoin monohyd/m-cryst 100 mg (Macrobid) must [id number] mg PO BID [address] with a meal/food Coding Level of Care Code Off vis,new,level 3 Diagnoses UTI (urinary tract infection) N39.0 09/26/19 1435 <Electronically signed by Jatin KUO> Date Jatin KUO Cosigner Signature: Date (if applicable) CC: Meghna Gregory Start: 02-07-2019 End: 02-07-2019 SCREENING MAMM (CAD), BILAT Comments: See Note; NOTES: [facility] Imaging Services [address] [place] [address] SCREENING MAMM (CAD), BILAT MR#: [id number] Acct: [id number] Name: GENMONSE S Rep #: [id number] : 1955 F 63 From: Antoine Holbrook MD PCP: Meghna Gregory DO Status: REG CLI Study: SCREENING MAMM (CAD), BILAT Date of Exam: 02/07/19 Exam# [id number] Ordering Dr: Meghna Gregory DO MAMMOGRAPHY - BILATERAL SCREENING REASON FOR EXAM: Female, 63 years old. Routine annual screening examination. PERTINENT HISTORY: Non-contributory. TECHNIQUE: Digital bilateral breast marciano (3D mammographic acquisition) in the CC and MLO projections. 2-D mediolateral oblique (MLO) and craniocaudad (CC) views of both breasts were obtained. CAD: Full Field Digital Mammography with Computer Added Detection was performed. COMPARISON: Comparison is made with prior study dated February 06, 2018 and August 30, 2016. FINDINGS: Breast Composition: The breasts are heterogeneously dense, which may obscure small masses. There are no dominant masses or suspicious calcifications. No other significant abnormalities are identified. There has been no significant change since the prior study. BI/SCREENING MAMM (CAD), BILAT IMPRESSION: Stable bilateral screening mammogram. Yearly follow-up mammogram recommended. (A) ASSESSMENT CATEGORY: BIRADS Category 1: Negative. A letter regarding these results will be sent to the patient by the facility within 30 days. Approximately 10% of breast cancers are not detected by mammography. A normal mammogram should not delay biopsy of a clinically suspicious abnormality. [id number] Electronically Signed: Antoine Holbrook, at 10:55 EDT , Service support , CC: Meghna Gregory DO Equipment Technician: Signed Meghna Gregory Work Phone: Start: 02-07-2019 End: 02-07-2019 Thyroid Comments: See Note; NOTES: [facility] Imaging Services [address] [place] [address] Thyroid MR#: [id number] Acct: [id number] Name: MONSE BLEVINS Rep #: [id number] : 1955 F 63 From: Colton Serna MD PCP: Meghna Gregory DO Status: REG CLI Study: Thyroid Date of Exam: 02/07/19 Exam# [id number] Ordering Dr: Meghna Gregory DO STUDY: THYROID ULTRASOUND REASON FOR EXAM: Female, 63 years old. Nodules TECHNIQUE: Ultrasound evaluation of the thyroid was performed with real-time and static santana-scale imaging. COMPARISON: Previous study of 03/20/2018 FINDINGS: RIGHT LOBE: The right lobe of the thyroid gland measures 4.7 x 0.9 x 1.0 cm. There is a homogeneous echotexture. There are 2 complex cysts of the upper pole, the larger measuring 11 x 7 x 5 mm and the smaller 2 x 2 x 2 mm. There is minimal internal vascularity of these nodules. LEFT LOBE: The left lobe of the thyroid gland measures 3.6 x 1.0 x 0.6 cm. There is a homogeneous echotexture. There are no demonstrated solid, cystic or complex lesions. ISTHMUS: The isthmus measures 2 mm . The regional lymph nodes are normal. US/Thyroid IMPRESSION: 2 complex cysts of the upper pole of the right thyroidal lobe as detailed above. The larger cyst has slightly increased in size in the interval. The smaller cyst remains stable in the interval. Electronically Signed: Colton Serna MD at 21:04 EDT , Service support , CC: Meghna Gregory DO Equipment Technician: Signed Meghna Gregory Work Phone: Start: 09-06-2018 End: 09-06-2018 Echocardiogram Complete Comments: See Note; NOTES: [facility] Cardiovascular Services [address] [place] [address] Echo Complete 09/05/18 1247 MR#: [id number] Acct: [id number] Name: MONSE BLEVINS Rep #: [id number] : 1955 63 From: Marcello Thomason MD Attending Dr: Huseyin Mott MD Status: REG CLI Ordering Dr: Huseyin Mott MD Date: 09/05/18 Location: [facility] Sex: F C Admitted: Reason For Study: PHTN Procedure This was a 2D Doppler, Color Flow transthoracic echocardiogram. Exam performed in department. Left Ventricle Normal size and thickness. The estimated ejection fraction is 75 %. Stage 1 diastolic dysfunction. No regional wall motion abnormalities noted. Right Ventricle Normal size and thickness. Normal systolic function. Atria Normal left atrium. Normal right atrium. Normal atrial septum. Mitral Valve The mitral valve is structurally normal. No prolapse or stenosis seen. Trivial mitral valve insufficiency. Tricuspid Valve Normal tricuspid valve. Trivial tricuspid valve insufficiency. Right ventricular systolic pressure estimated to be 22 mmHg. Aortic Valve Normal aortic valve. Trisinus/trileaflet aortic valve. Pulmonic Valve The pulmonic valve is not well visualized. Great Vessels Normal aortic root. Normal arch. Normal inferior vena cava. Inferior vena cava collapse with sniff. Pericardium/Pleural No pericardial effusion. MMode/2D Measurements AND Calculations LVIDd: 3.3 cm IVSd: 0.90 cm Ao root diam: 3.4 cm LVIDs: 2.3 cm LVPWd: 0.81 cm RVDd: 3.0 cm FS: 31.0 % LAV(MOD-bp): 28.4 ml LA A4 area: 10.7 cm2 LA dimension(2D): 2.6 cm LAV(MOD-bp) Indexed: 20.6 ml/m2 LAV(MOD-sp2): 24.3 ml LAV(MOD-sp4): 25.5 ml RA A4 area: 10.7 cm2 Time Measurements MV dec time: 0.18 sec Doppler Measurements AND Calculations MV E max christine: 62.1 cm/sec Lat Peak E' Christine: 8.5 cm/sec Med Peak E' Christine: 7.6 cm/sec MV A max christine: 81.2 cm/sec E/E' lat: 7.3 E/E' med: 8.1 MV E/A: 0.77 Ao V2 max: 107.5 cm/sec LV V1 max: 87.2 cm/sec PA V2 max: 76.0 cm/sec Ao max P.6 mmHg LV V1 max P.0 mmHg TR max christine: 203.7 cm/sec TR max P.5 mmHg Interpretation Summary The estimated ejection fraction is 75 %. Stage 1 diastolic dysfunction. Trivial mitral valve insufficiency. Trivial tricuspid valve insufficiency. Right ventricular systolic pressure estimated to be 22 mmHg. Compared to echo report 08/16/2017, LV function has remained the same and RVSP has decreased from 39 to 22 mm Hg. Ordering Physician: Huseyin Mott Referring Physician: Meghna Gregory M.D. Performed By: Madison Garrison, CLAY, RVT 09/06/18 1036 Date Marcello Thomason MD CC: Meghna Gregory DO; Huseyin Mott MD Date Dictated: 09/05/18 1247 Date Transcribed: 09/06/18 1036 Equipment Technician: Signed Meghna Gregory Start: 03-20-2018 End: 03-20-2018 Thyroid Comments: See Note; NOTES: [facility] Imaging Services [address] [place] [address] Thyroid MR#: [id number] Acct: [id number] Name: MONSE BLEVINS Rep #: [id number] : 1955 F 63 From: Andrew Martins MD PCP: Meghna Gregory DO Status: REG CLI Study: Thyroid Date of Exam: 03/20/18 Exam# [id number] Ordering Dr: Meghna Gregory DO STUDY: THYROID ULTRASOUND REASON FOR EXAM: Female, 63 years old. Nodule. TECHNIQUE: Ultrasound evaluation of the thyroid was performed with real-time and static santana-scale imaging. COMPARISON: Ultrasound thyroid 11/14/2016 FINDINGS: RIGHT LOBE: 4.7 x 0.9 x 0.9 cm. Homogeneous echotexture and normal vascular flow. Mid and upper pole nodules. Cystic and solid features with small echo reflectors likely representing colloid cysts. Sharply circumscribed margins, oval shape. 9 x 5 x 4 mm and 2 x 2 x 1 mm respectively. No significant change from prior imaging, previously measuring 8 x 5 x 4 mm. LEFT LOBE: 4.1 x 0.9 x 0.8 cm. Homogeneous echotexture and normal vascular flow. No nodules. ISTHMUS: The isthmus measures 2 mm, normal echotexture. . US/Thyroid IMPRESSION: Stable right-sided thyroid nodules. 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 Unchanged compared to imaging of 11/14/2016. Follow-up surveillance imaging in approximately one year is recommended. Electronically Signed: Andrew Martins, at 11:05 EDT Tel , Service support , CC: Meghna Gregory DO Equipment Technician: Signed Meghna Gregory Work Phone: Start: 02-06-2018 End: 02-06-2018 Dexa Bone Density Study Comments: See Note; NOTES: [facility] Imaging Services [address] [place] [address] Dexa Bone Density Study MR#: [id number] Acct: [id number] Name: MONSE BLEVINS Rep #: [id number] : 1955 F 62 From: Antoine Holbrook MD PCP: Meghna Gregory DO Status: [facility] CLI Study: Dexa Bone Density Study Date of Exam: 02/06/18 Exam# [id number] Ordering Dr: Meghna Gregory DO STUDY: DUAL ENERGY X-RAY ABSORPTIOMETRY / DXA REASON FOR EXAM: Female, 62 years old. The patient is postmenopausal. Loss of height. TECHNIQUE: Bone Mineral Density (BMD) measurements of lumbar spine and bilateral hips were obtained. COMPARISON: Comparison is made with prior study dated February 04, 2015. FINDINGS: Lumbar Spine (L1-L4): g/cm2 (0.887) / T-score (-2.4) / Z-score (-1.0) Findings are suggestive of osteopenia with a moderate fracture risk. Left Femur Total: g/cm2 (0.527) / T-score (-3.8) / Z-score (-2.7) Left Femoral Neck: g/cm2 (0.543) / T-score (-3.6) / Z-score (-2.2) Right Femur Total: g/cm2 (0.761) / T-score (-2.0) / Z-score (-0.9) Right Femoral Neck: g/cm2 (0.820) / T-score (-1.6) / Z-score (-0.2) The T-Scores on the most recent prior examination were: Lumbar Spine (L1-L4): There has been worsening of bone density since the previous examination. Left Femur Total: which represents a worsening of 39.9%. Right Femur Total: which represents a worsening of 4.6%. BD/Dexa Bone Density Study IMPRESSION: The patient is considered osteoporotic as outlined below according to World Jet Organization (WHO) criteria with a high fracture risk. There has been worsening of bone density since the previous examination. Reference Information: The T-score is the number of standard deviations above or below the standard which is normal for young adults at their peak bone mineral density. The World Health Organization (WHO) interprets the T-scores as follows: Above -1 Normal bone density Between -1 and -2.5 Osteopenia Equal to / or below -2.5 Osteoporosis As a practical clinical guideline, osteopenia may be graded as follows: Mild -1 through -1.5 Moderate -1.6 through -2.0 Severe -2.1 through -2.4 The Z-score is the number of standard deviations above or below age-matched controls. A Z-score of less than -1.5 would be considered abnormal. References: 1. NIH Osteoporosis and Related Bone Diseases http://www.osteo.org 2. International Society for Clinical Densitometry http://www.iscd.org 3. National Osteoporosis Foundation http://www.nof.org Electronically Signed: Antoine Holbrook MD at 15:32 EDT Tel [phone], Service support , CC: Meghna Gregory DO Equipment Technician: Signed Meghna Gregory Work Phone: Start: 02-06-2018 End: 02-07-2018 SCREENING MAMM (CAD), BILAT Comments: See Note; NOTES: [facility] Imaging Services [address] [place] [address] SCREENING MAMM (CAD), BILAT MR#: [id number] Acct: [id number] Name: MONSE BLEVINS Rep #: [id number] : 1955 F 62 From: Antoine Holbrook MD PCP: Meghna Gregory DO Status: REG CLI Study: SCREENING MAMM (CAD), BILAT Date of Exam: 02/06/18 Exam# [id number] Ordering Dr: Meghna Gregory DO MAMMOGRAPHY - BILATERAL SCREENING REASON FOR EXAM: Female, 62 years old. Routine annual screening examination. PERTINENT HISTORY: Non-contributory. TECHNIQUE: Digital bilateral breast marciano (3D mammographic acquisition) in the CC and MLO projections. 2-D mediolateral oblique (MLO) and craniocaudad (CC) views of both breasts were obtained. CAD: Full Field Digital Mammography with Computer Added Detection was performed. COMPARISON: Comparison is made with prior study dated August 30, 2016 and February 04, 2015. FINDINGS: Breast Composition: The breasts are heterogeneously dense, which may obscure small masses. There are no dominant masses or suspicious calcifications. No other significant abnormalities are identified. There has been no significant change since the prior study. BI/SCREENING MAMM (CAD), BILAT IMPRESSION: Stable bilateral screening mammogram. Yearly follow-up mammogram recommended. (A) ASSESSMENT CATEGORY: BIRADS Category 1: Negative. A letter regarding these results will be sent to the patient by the facility within 30 days. Approximately 10% of breast cancers are not detected by mammography. A normal mammogram should not delay biopsy of a clinically suspicious abnormality. [id number] Electronically Signed: Antoine Holbrook MD at 8:16 EDT Tel [phone], Service support , CC: Meghna Gregory DO Equipment Technician: Signed Meghna Gregory Work Phone: Start: 11-02-2017 End: 11-02-2017 Cerv Spine 4 or 5 Views Comments: See Note; NOTES: [facility] Imaging Services [address] [place] [address] Cerv Spine 4 or 5 Views MR#: [id number] Acct: [id number] Name: MONSE BLEVINS Rep #: [id number] : 1955 F 62 From: Juan Nickerson MD PCP: Meghna Gregory DO Status: REG CLI Study: Cerv Spine 4 or 5 Views Date of Exam: 11/02/17 Exam# [id number] Ordering Dr: Vonda Wynn [facility] STUDY: X-RAY - CERVICAL SPINE REASON FOR EXAM: Female, 62 years old. pain right side of head and neck hx of ms TECHNIQUE: 6 view(s) of the cervical spine were obtained. COMPARISON: None FINDINGS: Normal anterior atlantoaxial articulation. Normal odontoid process. Normal cervical lordosis. There is multi-level endplate spondylosis. There is multi-level degenerative disc disease with multilevel disc space narrowing. There is multi-level osseous foraminal stenosis. The soft tissue structures are unremarkable. RAD/Cerv Spine 4 or 5 Views IMPRESSION: There are degenerative changes as noted above. Electronically Signed: Juan Nickerson MD at 16:28 EST , Service support , CC: Vonda Wynn; Meghna Gregory DO Equipment Technician: Signed Alexa Keith Puente Work Phone: Start: 08-16-2017 End: 08-16-2017 Echocardiogram Complete Comments: See Note; NOTES: [facility] Cardiovascular Services [address] [place] [address] Echo Complete 08/16/17 1302 MR#: [id number] Acct: [id number] Name: MONSE BLEVINS Rep #: [id number] : 1955 62 From: Marcello Thomason MD Attending Dr: FLORENCIA Mazariegos Status: REG CLI Ordering Dr: Pat Velasquez Date: 08/16/17 Location: [facility] Sex: F C Admitted: Reason For Study: headache, chest pain, SOB Procedure This was a 2D Doppler, Color Flow transthoracic echocardiogram. Exam performed in department. Left Ventricle Normal size and thickness. The estimated ejection fraction is 75 %. Stage 1 diastolic dysfunction. No regional wall motion abnormalities noted. Right Ventricle Normal size and thickness. Normal systolic function. Atria Normal left atrium. Normal right atrium. Normal atrial septum. Mitral Valve The mitral valve is structurally normal. No prolapse or stenosis seen. Trivial mitral valve insufficiency. Tricuspid Valve Normal tricuspid valve. Trivial tricuspid valve insufficiency. Right ventricular systolic pressure estimated to be 39 mmHg. Mild pulmonary hypertension. Aortic Valve Trisinus/trileaflet aortic valve. Normal aortic valve. Pulmonic Valve Normal pulmonic valve. Great Vessels Normal aortic root. Normal arch. Normal inferior vena cava. Inferior vena cava collapse with sniff. Pericardium/Pleural No pericardial effusion. MMode/2D Measurements AND Calculations LVIDd: 3.9 cm IVSd: 0.92 cm Ao root diam: 2.9 cm LVIDs: 2.4 cm LVPWd: 0.90 cm LA dimension: 2.5 cm RVDd: 2.4 cm FS: 38.5 % LAV(MOD-sp4): 33.2 ml LA A4 area: 11.8 cm2 RA A4 area: 11.6 cm2 Time Measurements MV dec time: 0.23 sec Doppler Measurements AND Calculations MV E max christine: 60.4 cm/sec Lat Peak E' Christine: 8.4 cm/sec Med Peak E' Christine: 9.0 cm/sec MV A max christine: 88.0 cm/sec E/E' lat: 7.2 E/E' med: 6.7 MV E/A: 0.69 Ao V2 max: 102.8 cm/sec LV V1 max: 87.1 cm/sec PA V2 max: 73.9 cm/sec Ao max P.2 mmHg LV V1 max P.0 mmHg TR max christine: 244.4 cm/sec TR max P.2 mmHg Interpretation Summary The estimated ejection fraction is 75 %. Stage 1 diastolic dysfunction. Trivial mitral valve insufficiency. Right ventricular systolic pressure estimated to be 39 mmHg. Mild pulmonary hypertension. There is no comparison study available. Ordering Physician: FLORENCIA Mazariegos Referring Physician: Meghna Gregory M.D. Performed By: Madison Garrison, CLAY, RVT 08/16/17 1554 Date Marcello Thomason MD CC: OSVALDOC Pat Velasquez; Meghna Gregory DO Date Dictated: 08/16/17 1302 Date Transcribed: 08/16/17 1554 Equipment Technician: Signed Meghna Gregory Start: 08-12-2017 End: 08-12-2017 Carotid Duplex Ultrasound Comments: See Note; NOTES: [facility] Cardiovascular Services [address] [place] [address] Carotid Duplex Ultrasound 08/09/17 1248 MR#: [id number] Acct: [id number] Name: MONSE BLEVINS Rep #: [id number] : 1955 62 From: Magnus Smiley MD Attending Dr: FLORENCIA Mazariegos Status: REG CLI Ordering Dr: Pat Velasquez Date: 08/09/17 Location: [facility] Sex: F C Admitted: Reason For Study: Headache Rt. Velocities/BP Lt. Velocities/BP Prox CCA 92.0/28.1 cm/sec. Prox CCA 95.0/28.7 cm/sec. Mid CCA 75.6/26.4 cm/sec. Mid CCA 89.1/28.7 cm/sec. Dist CCA 79.7/30.5 cm/sec. Dist CCA 92.0/34.6 cm/sec. Prox ICA 79.7/36.4 cm/sec. Prox ICA 78.0/31.1 cm/sec. Mid ICA 63.5/29.3 cm/sec. Mid ICA 94.4/41.0 cm/sec. Dist ICA 69.4/29.3 cm/sec. Dist ICA 74.7/30.4 cm/sec. Rt. ICA/CCA = 1.1. Lt. ICA/CCA = 1.1. Prox ECA 49.8/11.8 cm/sec. Prox ECA 60.4/14.2 cm/sec. Rt. Vert. 44.8/16.5 cm/sec. Lt. Vert. 39.3/18.2 cm/sec. Right Extracranial There is no significant atherosclerotic plaque noted in the right common carotid artery. There is no significant atherosclerotic plaque noted in the right internal carotid artery. There is no significant atherosclerotic plaque noted in the right external carotid artery. Antegrade flow is noted in the right vertebral artery. Left Extracranial There is intimal thickening but no significant atherosclerotic plaque noted in the left common carotid artery. There is no significant atherosclerotic plaque noted in the left internal carotid artery. There is no significant atherosclerotic plaque noted in the left external carotid artery. Antegrade flow is noted in the left vertebral artery. Procedure Carotid Duplex [id number]. Exam performed in department. Interpretation Summary Mild (<50%) stenosis right extracranial internal carotid. Mild (<50%) stenosis left extracranial internal carotid. Flow within the vertebral arteries is antegrade bilaterally. Ordering Physician: FLORENCIA Mazariegos Referring Physician: Meghna Gregory M.D. Performed By: Valarie Vazquez RVT 08/12/17 1229 Date Magnus Smiley MD CC: FLORENCIA Velasquez; Meghna Gregory DO Date Dictated: 08/09/17 1248 Date Transcribed: 08/12/17 1229 Equipment Technician: Signed Meghna Gregory Start: 11-14-2016 End: 11-15-2016 Thyroid Comments: See Note; NOTES: [facility] Imaging Services [address] [place] [address] Verdana 4d Thyroid MR#: [id number] Acct: [id number] Name: MONSE BLEVINS Rep #: [id number] : 1955 F 61 From: Eric Alexander PCP: Meghna Gregory DO Status: REG CLI Study: Thyroid Date of Exam: 11/14/16 Exam# [id number] Ordering Dr: Meghna Gregory DO STUDY: THYROID ULTRASOUND REASON FOR EXAM: Female, 61 years old. Thyroid nodule. TECHNIQUE: Ultrasound evaluation of the thyroid was performed with real-time and static santana-scale imaging. COMPARISON: None. FINDINGS: RIGHT LOBE: The right lobe of the thyroid gland measures 4.8 x 0.9 x 0.9 cm. There is a homogeneous echotexture. Complex cyst midpole measuring 0.8 x 0.4 x 0.5 cm. Additional tiny cysts measuring 2 mm. LEFT LOBE: The left lobe of the thyroid gland measures 4.1 x 0.8 x 0.7 cm. There is a homogeneous echotexture. There are no demonstrated solid, cystic or complex lesions. ISTHMUS: The isthmus measures 1 mm . The regional lymph nodes are normal. US/Thyroid IMPRESSION: Mildly enlarged right lobe of the thyroid gland containing a 0.8 cm complex cyst. Electronically Signed: Eric Alexander MD at 8:45 EST , Service support [phone], CC: Meghna Gregory DO Equipment Technician: Signed Meghna Gergory Work Phone: Start: 08-30-2016 End: 08-30-2016 Bilat Scrn Digital AND CAD Comments: See Note; NOTES: [facility] Imaging Services [address] [place] [address] Verdana 4d Bilat Scrn Digital AND CAD MR#: [id number] Acct: [id number] Name: MONSE BLEVINS Rep #: [id number] : 1955 F 61 From: Dmitry Bass MD PCP: Meghna Gregory DO Status: REG CLI Study: Bilat Scrn Digital AND CAD Date of Exam: 08/30/16 Exam# [id number] Ordering Dr: Meghna Gregory DO MAMMOGRAPHY - BILATERAL SCREENING REASON FOR EXAM: Female, 61 years old. Routine annual screening examination. PERTINENT HISTORY: Non-contributory. TECHNIQUE: Digital examination. Mediolateral oblique (MLO) and craniocaudad (CC) views of both breasts were obtained, along with 3-D tomosynthesis. CAD: CAD was performed on this study. COMPARISON: 02/04/2015 FINDINGS: Breast Density: Heterogeneously dense, which may obscure small masses. There are no dominant masses or suspicious calcifications. Stable punctate and lucent centered calcifications. No other significant abnormalities are identified. There has been no significant change since the prior study. HPBI/Bilat Scrn Digital AND CAD IMPRESSION: Stable bilateral screening mammogram. Yearly follow-up mammogram recommended. (A) ASSESSMENT CATEGORY: BIRADS Category 2: Benign. A letter regarding these results will be sent to the patient by the facility within 30 days. BR2 Approximately 10% of breast cancers are not detected by mammography. A normal mammogram should not delay biopsy of a clinically suspicious abnormality. [id number] Electronically Signed: Kiko Bass MD at 8:54 EST Tel , Service support [phone], CC: Meghna Gregory DO Equipment Technician: Signed Meghna Gregory Work Phone: Start: 02-04-2015 End: 02-04-2015 Bilat Scrn Digital AND CAD Comments: See Note; NOTES: [facility] Imaging Services [address] [place] [id number] Breast Imaging Report MR#: [id number] Acct: [id number] Name: MONSE BLEVINS Rep #: [id number] : 1955 F 59 From: Antoine Holbrook MD PCP: Meghna Gregory DO Status: REG CLI Study: Bilat Scrn Digital AND CAD Date of Exam: 02/04/15 Exam# [id number] Ordering Dr: Meghna Gregory DO MAMMOGRAPHY - BILATERAL SCREENING REASON FOR EXAM: Female, 59 years old. Routine annual screening examination. PERTINENT HISTORY: Non-contributory. TECHNIQUE: Digital examination. Mediolateral oblique (MLO) and craniocaudad (CC) views of both breasts were obtained. CAD: CAD was performed on this study. COMPARISON: Comparison is made with prior study dated October 04, 2013 and September 21, 2012. FINDINGS: Breast Composition: The breasts are heterogeneously dense, which may obscure small masses. There are no dominant masses or suspicious calcifications. No other significant abnormalities are identified. There has been no significant change since the prior study. IMPRESSION: Stable bilateral screening mammogram. Yearly follow-up recommended. (A) ASSESSMENT CATEGORY: BIRADS Category 2: Benign. A letter regarding these results will be sent to the patient by the facility within 30 days. Approximately 10% of breast cancers are not detected by mammography. A normal mammogram should not delay biopsy of a clinically suspicious abnormality. Electronically Signed: Antoine Holbrook MD at 12:37 EDT Tel [phone], Service support [phone], CC: Meghna Gregory DO Equipment Technician: Signed Meghna Gregory Work Phone: Start: 02-04-2015 End: 02-05-2015 Dexa Bone Density Study () Comments: See Note; NOTES: [facility] Imaging Services [address] [place] [address] Bone Density Report MR#: [id number] Acct: [id number] Name: MONSE BLEVINS Rep #: [id number] : 1955 F 59 From: Antoine Holbrook MD PCP: Meghna Gregory DO Status: [facility] Study: Dexa Bone Density Study (HP) Date of Exam: 02/04/15 Exam# [id number] Ordering Dr: Meghna Gregory DO STUDY: DUAL ENERGY X-RAY ABSORPTIOMETRY / DXA REASON FOR EXAM: Female, 59 years old. The patient is postmenopausal. TECHNIQUE: Bone Mineral Density (BMD) measurements of lumbar spine and bilateral hips were obtained. COMPARISON: Comparison is made with prior study dated September 27, 2012. FINDINGS: Lumbar Spine (L1-L4): g/cm2 (1.000) / T-score (-1.7) / Z-score (-0.5) Findings are suggestive of osteopenia with a moderate fracture risk. Left Femur Total: g/cm2 (0.877) / T-score (-1.0) / Z-score (-0.1) Left Femoral Neck: g/cm2 (0.870) / T-score (-1.2) / Z-score (0.0) Right Femur Total: g/cm2 (0.798) / T-score (-1.7) / Z-score (-0.8) Right Femoral Neck: g/cm2 (0.791) / T-score (-1.8) / Z-score (-0.5) The T-Scores on the most recent prior examination were: Lumbar Spine (L1-L4): There has been improvement of bone density since the previous examination. Left Femur Total: which represents a worsening of 3.0%. Right Femur Total: which represents a worsening of 11.7%. IMPRESSION: The patient is considered osteopenic as outlined below according to World Jet Organization (WHO) criteria with a moderate fracture risk. There has been worsening of bone density since the previous examination. Reference Information: The T-score is the number of standard deviations above or below the standard which is normal for young adults at their peak bone mineral density. The World Health Organization (WHO) interprets the T-scores as follows: Above -1 Normal bone density Between -1 and -2.5 Osteopenia Equal to / or below -2.5 Osteoporosis As a practical clinical guideline, osteopenia may be graded as follows: Mild -1 through -1.5 Moderate -1.6 through -2.0 Severe -2.1 through -2.4 The Z-score is the number of standard deviations above or below age-matched controls. A Z-score of less than -1.5 would be considered abnormal. References: 1. NIH Osteoporosis and Related Bone Diseases http://www.osteo.org 2. International Society for Clinical Densitometry http://www.iscd.org 3. National Osteoporosis Foundation http://www.nof.org Electronically Signed: Antoine Holbrook MD at 14:38 EDT Tel [phone], Service support [phone], CC: Meghna Gregory DO Equipment Technician: Signed Meghna Gregory Work Phone: Start: 10-04-2013 End: 10-04-2013 Bilcintia Scrn Digital & CAD Comments: See Note; NOTES: [facility] Imaging Services [address] [place] [address] Breast Imaging Report MR#: [id number] Acct: [id number] Name: MONSE BLEVINS Rep #: [id number] : 1955 F 58 From: Antoine Holbrook MD PCP: Status: REG CLI Exam# [id number] Ordering Dr: Meghna Gregory DO MAMMOGRAPHY - BILATERAL SCREENING REASON FOR EXAM: Female, 58 years old. Routine annual screening examination. PERTINENT HISTORY: Non-contributory. TECHNIQUE: Digital examination. Mediolateral oblique (MLO) and craniocaudad (CC) views of both breasts were obtained. CAD: CAD was performed on this study. COMPARISON: Comparison is made with prior study dated September 21, 2012 and August 05, 2010. FINDINGS: The breast composition is heterogeneously dense - ranging from 51% to 75% of the breast tissue. There are no dominant masses or suspicious calcifications. No other significant abnormalities are identified. There has been no significant change since the prior study. IMPRESSION: Stable bilateral screening mammogram. Yearly follow-up recommended. (A) ASSESSMENT CATEGORY: BIRADS Category 2: Benign finding(s). A letter regarding these results will be sent to the patient by the facility within 30 days. Approximately 10% of breast cancers are not detected by mammography. A normal mammogram should not delay biopsy of a clinically suspicious abnormality. Electronically Signed: Antoine Holbrook M.D. at 11:15 EST , Service support [phone], CC: Meghna Gregory DO Equipment Technician: Signed Meghna Gregory Work Phone: Large intestine Nika Borrego Comment on above: approx 9 inches removed. January 2020. Large intestine Chasity Gravi us Comment on above: approx 9 inches removed. January 2020. Large intestine Chasity Gravi us Comment on above: approx 9 inches removed. January 2020. Large intestine Lamar Schmidt Comment on above: approx 9 inches removed. January 2020. Lamar Schmidt LP N Calixto Roman LP N Jerald Cancino LP N Plan of Treatment Date Care Activity Detail Author Start: 01-12-2024 Patient discharge [facility] Start: 08-16-2023 [facility] Start: 08-15-2023 [facility] Start: 07-31-2023 Iv infusion therapy prophylaxis/dx ea hour THER/PROPH/DIAG IV INF [facility] Start: 07-31-2023 Iv infusion therapy/prophylaxis /dx 1st to 1 hr [facility] Start: 07-31-2023 Therapeutic injection iv push each new drug TX/PRO/DX INJ NEW DRUG [facility] Start: 04-28-2023 Procedure Education [facility]; [facility] Work Phone: Start: 04-28-2023 Provider Instructions for Treatment [facility]; [facility] Work Phone: Start: 04-28-2023 Comprehensive metabolic panel [facility]; [facility] Work Phone: Start: 04-28-2023 Blood count complete auto&auto difrntl wbc [facility]; [facility] Work Phone: Start: 04-28-2023 25 hydroxy includes fractions if performed [facility]; [facility] Work Phone: Start: 04-28-2023 Hemoglobin glycosylated a1c [facility]; [facility] Work Phone: Start: 01-23-2023 Iv infusion therapy/prophylaxis /dx 1st to 1 hr THER/PROPH/DIAG IV INF [facility] Start: 12-22-2022 Procedure Education [facility]; [facility] Work Phone: Start: 11-30-2022 Procedure Education [facility]; [facility] Work Phone: Start: 11-30-2022 Provider Instructions for Treatment [facility]; [facility] Work Phone: Start: 11-23-2022 Simple repair f/e/e/n/l/m 2.6cm-5.0 cm RPR F/E/E/N/L/M 2.6-5.0 CM [facility] Start: 02-25-2022 Procedure Education [facility]; [facility] Work Phone: Start: 02-25-2022 Provider Instructions for Treatment [facility]; [facility] Work Phone: Start: 02-25-2022 Assay of triiodothyronine t3 free [facility]; [facility] Work Phone: Start: 02-25-2022 Assay of free thyroxine [facility] Work Phone: Start: 02-25-2022 Assay of thyroid stimulating hormone tsh [facility]; [facility] Work Phone: Start: 02-25-2022 25 hydroxy includes fractions if performed [facility]; [facility] Work Phone: Start: 02-25-2022 Hemoglobin glycosylated a1c [facility]; [facility] Work Phone: Start: 02-25-2022 Lipid panel [facility]; [facility] Work Phone: Start: 12-31-2021 Iv infusion therapy prophylaxis/dx ea hour THER/PROPH/DIAG IV INF [facility] Work Phone: Start: 12-31-2021 Iv infusion therapy/prophylaxis /dx 1st to 1 hr THER/PROPH/DIAG IV INF [facility] Work Phone: Start: 12-03-2020 Culture bacterial quanttative colony count urine URINE HOLLIS CULTURE (PIOTR COL COUNT) (95805) [facility]; [facility] Work Phone: Start: 11-18-2020 Procedure Education [facility]; [facility] Work Phone: Start: 11-18-2020 Provider Instructions for Treatment [facility]; [facility] Work Phone: Start: 11-10-2020 Culture bct isol&prsmptv id isolate ea urine [facility]; [facility] Work Phone: Comment on above: re check after finish antibiotic Start: 11-10-2020 Urinalysis qual/semiquant except immunoassays [facility]; [facility] Work Phone: Comment on above: re check after finish antibiotic Start: 07-27-2020 Procedure Education [facility] Work Phone: Start: 07-27-2020 Provider Instructions for Treatment [facility] Work Phone: Start: 07-27-2020 Hpv, dna, amp probe HPV Auto Reflex PAP (17251) [facility] Work Phone: Start: 04-23-2020 Procedure Education [facility] Work Phone: Start: 02-19-2020 Procedure Education [facility] Work Phone: Start: 02-19-2020 Provider Instructions for Treatment [facility] Work Phone: Start: 02-05-2020 Procedure Education [facility] Work Phone: Start: 02-05-2020 Provider Instructions for Treatment [facility] Work Phone: Start: 01-31-2020 Procedure Education [facility] Work Phone: Start: 10-28-2019 Provider Instructions for Treatment [facility] Work Phone: Start: 09-27-2019 Procedure Education [facility] Work Phone: Start: 09-27-2019 Comprehensive metabolic panel [facility] Work Phone: Start: 09-27-2019 Blood count complete auto&auto difrntl wbc [facility] Work Phone: Start: 09-27-2019 Assay of lipase [facility] Work Phone: Start: 09-27-2019 Amylase [Catalytic activity/Vol] AMYLASE (26635) [facility] Work Phone: Start: 09-27-2019 Assay of amylase [facility] Work Phone: Start: 02-08-2019 Procedure Education [facility] Work Phone: Start: 02-08-2019 Provider Instructions for Treatment [facility] Work Phone: Start: 12-27-2018 Procedure Education [facility] Work Phone: Start: 12-27-2018 Provider Instructions for Treatment [facility] Work Phone: Start: 12-27-2018 T4 free mass conc T4, FREE (THYROXINE) (52623) [facility] Work Phone: Start: 12-27-2018 T3 free mass conc T3, FREE (TRIDOTHYRONINE) (25267) [facility] Work Phone: Start: 12-27-2018 Protein mass conc NMR Profile (14008) [facility] Work Phone: Start: 12-27-2018 25 hydroxy includes fractions if performed CALCIFEDIOL (56604) [facility] Work Phone: Start: 12-27-2018 Hepatitis c antibody HEPATITIS C ANTIBODY (24550) [facility] Work Phone: Start: 12-27-2018 Heavy metal qualitative any analytes HEAVY METAL SCREEN (65583) [facility] Work Phone: Start: 12-27-2018 Cobalamin (Vitamin B12) mass conc VITAMIN B-12 (CYANOCOBALAMIN) (26989) [facility] Work Phone: Start: 12-27-2018 Assay of thyroid stimulating hormone tsh [facility]; [facility] Work Phone: Start: 12-27-2018 Thyrotropin Qn [facility] Work Phone: Start: 12-27-2018 Sedimentation rate rbc non-automated SED RATE ERYTHROCYTE (21032) [facility] Work Phone: Start: 12-27-2018 Blood count complete automated CBC & PLATELETS (AUTO) (46972) [facility] Work Phone: Start: 12-27-2018 Comprehensive metabolic panel METABOLIC PANEL, COMPREHENSIVE (59713) [facility] Work Phone: Start: 10-10-2018 Patient Education [facility] Work Phone: Start: 10-10-2018 Procedure Education [facility] Work Phone: Start: 10-10-2018 Provider Instructions for Treatment [facility] Work Phone: Start: 03-13-2018 Procedure Education [facility] Work Phone: Start: 03-13-2018 Provider Instructions for Treatment [facility] Work Phone: Start: 02-16-2018 Cytp cerv/vag auto thin layer prep mnl screen [facility] Work Phone: Start: 02-16-2018 Provider Instructions for Treatment [facility] Work Phone: Start: 08-07-2017 Procedure Education [facility] Work Phone: Start: 08-07-2017 Provider Instructions for Treatment [facility] Work Phone: Start: 08-11-2016 Provider Instructions for Treatment [facility] Work Phone: Start: 08-11-2016 Cytp cerv/vag auto thin layer prep mnl screen [facility] Work Phone: Start: 01-26-2015 Provider Instructions for Treatment [facility] Work Phone: Start: 01-26-2015 Cytp c/v auto thin lyr prepj scr mnl rescr phys [facility] Work Phone: Start: 07-30-2014 Provider Instructions for Treatment [facility] Work Phone: Start: 12-16-2013 Patient Education [facility] Work Phone: Start: 12-16-2013 Provider Instructions for Treatment [facility] Work Phone: Start: 11-08-2013 Provider Instructions for Treatment [facility] Work Phone: Start: 09-23-2013 Provider Instructions for Treatment [facility] Work Phone: Start: 09-23-2013 Cytp cerv/vag auto thin layer prep mnl screen [facility] Work Phone: Start: 03-19-2013 Provider Instructions for Treatment [facility] Work Phone: Start: 11-26-2012 Provider Instructions for Treatment [facility] Work Phone: Start: 11-23-2012 Provider Instructions for Treatment [facility] Work Phone: Start: 10-15-2012 Provider Instructions for Treatment [facility] Work Phone: Start: 09-21-2012 Provider Instructions for Treatment [facility] Work Phone: Start: 09-21-2012 Blood occult fecal hgb deter ia qual feces 1-3 [facility] Work Phone: Start: 07-20-2011 Provider Instructions for Treatment [facility] Work Phone: Start: 12-02-2010 Culture bacterial quanttative colony count urine [facility] Work Phone: Comment on above: urine culture in 2 wks Start: 11-19-2010 Provider Instructions for Treatment [facility] Work Phone: Start: 10-18-2010 Culture bacterial quanttative colony count urine [facility] Work Phone: Start: 09-23-2010 Patient Education [facility] Work Phone: Start: 09-23-2010 Provider Instructions for Treatment [facility] Work Phone: Start: 07-21-2010 Provider Instructions for Treatment [facility] Work Phone: Start: 07-21-2010 Blood occult fecal hgb deter ia qual feces 1-3 [facility] Work Phone: Comment on above: dispense today Start: 08-24-2009 Provider Instructions for Treatment [facility] Work Phone: Start: 08-24-2009 Blood occult fecal hgb deter ia qual feces 1-3 [facility] Work Phone: Start: 08-24-2009 Cytp cerv/vag auto thin layer prep mnl screen [facility] Work Phone: Start: 02-04-2009 25 hydroxy includes fractions if performed [facility] Work Phone: Start: 08-20-2008 Provider Instructions for Treatment [facility] Work Phone: Start: 08-20-2008 Blood occult fecal hgb deter ia qual feces 1-3 [facility] Work Phone: Start: 08-20-2008 Cytp cerv/vag auto thin layer prep mnl screen [facility] Work Phone: Start: 05-26-2008 Provider Instructions for Treatment [facility] Work Phone: Start: 03-12-2007 Provider Instructions for Treatment [facility] Work Phone: Start: 02-07-2007 Patient Education [facility] Work Phone: Start: 02-07-2007 Provider Instructions for Treatment [facility] Work Phone: Start: 01-30-2007 Provider Instructions for Treatment [facility] Work Phone: Start: 01-30-2007 Lipid panel [facility] Work Phone: Start: 12-27-2006 Provider Instructions for Treatment [facility] Work Phone: Start: 12-27-2006 Cytp cerv/vag auto thin layer prep mnl screen [facility] Work Phone: Start: 11-28-2006 Provider Instructions for Treatment [facility] Work Phone: Start: 11-28-2006 Blood occult peroxidase actv qual feces 1 deter [facility] Work Phone: Start: 11-28-2006 Cul bact stool aerobic isol salmonella&shigell [facility] Work Phone: Start: 11-28-2006 Culture bacterial any source anaerobic iso&id [facility] Work Phone: Start: 11-28-2006 Leukocyte assmt fecal qual/semiquantitative [facility] Work Phone: Start: 11-28-2006 Ova&parasites direct smears concentration & id [facility] Work Phone: Colonoscopy [facility] Patient referral [facility] Work Phone: [place] Thyroid gland [facility] Work Phone: [facility] Work Phone: [facility] Work Phone: [facility] Work Phone[facility] Work Phone[facility] Work Phone: [facility] Work Phone: [facility] Work Phone: [facility] Work Phone: [facility] Work Phone: [facility] Work Phone: [facility] Work Phone: [facility] Phone: [facility] Phone: [facility] Phone: [facility]: [facility]: [facility] Phone: [facility] Work Phone: [facility] Work Phone: [facility] Phone: [facility] Work Phone: [facility] Work Phone: [facility] Work Phone: [facility] Work Phone: [facility] Work Phone: [facility] Work Phone: [facility] Work Phone: [facility] Work Phone[facility] Work Phone: [facility] Work Phone: [facility] Work Phone: [facility] Work Phone: [facility] Work Phone: [facility] Work Phone: [facility] Work Phone: [facility] Work Phone: [facility] Work Phone: [facility] Phone: [facility] Work Phone: [facility] Work Phone: [facility] Work Phone: [facility] Work Phone: [facility] Work Phone: [facility] Work Phone: [facility] Work Phone: [facility] Work Phone[facility] Work Phone[facility] Work Phone: [facility] Work Phone: [facility] Work Phone: [facility] Work Phone: Immunizations Immunization Date Immunization Notes Care Provider Blanca reagan 06-19-2023 influenza, injectabl e, quadrivalent, preservative free Meghna Bri DO Work Phone: [facility]; [facility] Work Phone: 06-19-2023 respiratory syncytia l virus monoclonal antibody (palivizumab), intramuscular Meghna Bri DO Work Phone: [facility]; [facility] Work Phone: 05-30-2023 zoster vaccine, live Katwerneree n Bri DO Work Phone: [facility]; [facility] Work Phone: 02-14-2022 COVID-Moderna (100 MCG/0.5 ML) Meghna Bri DO Work Phone: [facility]; [facility] Work Phone: 08-31-2021 COVID-Moderna (100 MCG/0.5 ML) Meghna Bri DO Work Phone: [facility]; [facility] Work Phone: 02-25-2021 COVID-Moderna (100 MCG/0.5 ML) Meghna Bri DO Work Phone: [facility]; [facility] Work Phone: 01-21-2021 COVID-Moderna (100 MCG/0.5 ML) Meghna Bri DO Work Phone: [facility]; [facility] Work Phone: 07-01-2019 Seasonal, quadrivalent, recombinant, injectable influenza vaccine, preservative free Meghna Bri [facility] Work Phone: Comment on above: Site: Left Deltoid 06-18-2019 influenza, injectabl e, quadrivalent, preservative free [facility] 06-18-2019 influenza, seasonal, injectable Dr. Meghna Gregory Work Phone: [facility] 07-08-2009 influenza, seasonal, injectable Meghna Gregory [facility] Work Phone: Comment on above: Lot #[id number]-[id number] deltoidgiven by:[facility] 08-20-2008 influenza, seasonal, injectable Meghna Gregory [facility] Work Phone: 01-30-2007 tetanus and diphther ia toxoids, adsorbed, preservative free, for adult use (2 Lf of tetanus toxoid and 2 Lf of diphtheria toxoid) Meghna Gregory [facility] Work Phone: Comment on above: pt works alot on far m-- unexpected injuries Payers Date Payer Category Payer Self-pay [id number] 2021 Medicare [id number] 2020 Medicare [id number] 2010 Unknown [id number] 1955 Unknown [id number] 2.16.84 [id number] Medicare [id number] Unknown Unknown [facility] [employer] . [id number] Unknown [id number] 2.16.8 [id number] Unknown [id number] 2.16.8 [id number] Unknown [id number] 2.16.8 [id number] Unknown 2024 2.16.8 [id number] Unknown [id number] 2.16.8 [id number] Unknown [id number] 2.16.8 [id number] Unknown [id number] 2.16.8 [id number] Unknown [id number] 2.16.8 [id number] Unknown [id number] 2.16.8 [id number] Unknown [id number] 2.16.8 [id number] Unknown [id number] 2.16.8 [id number] Social History Date Type Detail Facility Alcohol Use Never smoker [facility] Work Phone: Comment on above: rare 3 X a week , 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 [facility] Work Phone: Never smoker. [facility]; [facility] Work Phone: Start: 08-11-2020 End: 01-12-2024 Tobacco smoking status NHIS Unknown if ever smoked [facility] Start: 01-23-2020 None [facility] Start: 01-23-2020 Spouse/ Signif icant Other [facility] Start: 04-30-2020 Non-smoker [facility] Start: 1955 Sex Assigned At Female W [facility] Start: 01-12-2024 Tobacco smoking stat us NHIS Never smoked tobacco (finding) [facility] NEGATED: Highlighted row [facility] Medical Equipment Procedure Code Equipment Code Equipment Original Text Equipment Identifier Dates Laparoscopic-assisted sigmoidectomy NASEEM AGUILA LG FDA Start: 01-24-2020 Laparoscopic-assisted sigmoidectomy RELOAD,BLUE 60 FDA Start: 01-24-2020 Laparoscopic-assisted sigmoidectomy STAPLER,CDH25 ETHICON FDA Start: 01-24-2020 Laparoscopic-assisted sigmoidectomy CLIP,HEMOLOCK LG SAIRA FDA Start: 01-24-2020 Laparoscopic-assisted sigmoidectomy RELOAD,BLUE 60 FDA Start: 01-24-2020 Laparoscopic-assisted sigmoidectomy STAPLER,CDH25 ETHICON FDA Start: 01-24-2020 Laparoscopic-assisted sigmoidectomy CLIP,HEMOLOERICK LG SAIRA FDA Start: 01-24-2020 Laparoscopic-assisted sigmoidectomy RELOAD,BLUE 60 FDA Start: 01-24-2020 Laparoscopic-assisted sigmoidectomy STAPLER,CDH25 ETHICON FDA Start: 01-24-2020 Laparoscopic-assisted sigmoidectomy CLIP,HEMOLOERICK JENNIFER CHÁVEZ FDA Start: 01-24-2020 Laparoscopic-assisted sigmoidectomy RELOAD,BLUE 60 FDA Start: 01-24-2020 Laparoscopic-assisted sigmoidectomy STAPLER,CDH25 ETHICON FDA Start: 01-24-2020 Laparoscopic-assisted sigmoidectomy CLIP,HEMNAHIDERICK JENNIFER CHÁVEZ FDA Start: 01-24-2020 Laparoscopic-assisted sigmoidectomy RELOAD,BLUE 60 FDA Start: 01-24-2020 Laparoscopic-assisted sigmoidectomy STAPLER,CDH25 ETHICON FDA Start: 01-24-2020 Laparoscopic-assisted sigmoidectomy CLIP,HEMNAHIDERICK JENNIFER CHÁVEZ FDA Start: 01-24-2020 Laparoscopic-assisted sigmoidectomy RELOAD,BLUE 60 FDA Start: 01-24-2020 Laparoscopic-assisted sigmoidectomy STAPLER,CDH25 ETHICON FDA Start: 01-24-2020 Laparoscopic-assisted sigmoidectomy CLIP,HEMNAHIDERICK JENNIFER CHÁVEZ FDA Start: 01-24-2020 Laparoscopic-assisted sigmoidectomy RELOAD,BLUE 60 FDA Start: 01-24-2020 Laparoscopic-assisted sigmoidectomy STAPLER,CDH25 ETHICON FDA Start: 01-24-2020 Laparoscopic-assisted sigmoidectomy CLIP,HEMOLOERICK LG SAIRA FDA Start: 01-24-2020 Laparoscopic-assisted sigmoidectomy RELOAD,BLUE 60 FDA Start: 01-24-2020 Laparoscopic-assisted sigmoidectomy STAPLER,CDH25 ETHICON FDA Start: 01-24-2020 Laparoscopic-assisted sigmoidectomy CLIP,HEMOLOERICK LG SAIRA FDA Start: 01-24-2020 Laparoscopic-assisted sigmoidectomy RELOAD,BLUE 60 FDA Start: 01-24-2020 Laparoscopic-assisted sigmoidectomy STAPLER,CDH25 ETHICON FDA Start: 01-24-2020 Laparoscopic-assisted sigmoidectomy CLIP,HEMOLOERICK JENNIFER CHÁVEZ FDA Start: 01-24-2020 Laparoscopic-assisted sigmoidectomy RELOAD,BLUE 60 FDA Start: 01-24-2020 Laparoscopic-assisted sigmoidectomy STAPLER,CDH25 ETHICON FDA Start: 01-24-2020 Laparoscopic-assisted sigmoidectomy CLIP,BURAKNIKA RODRIGUEZ ASHLYNERICK FDA Start: 01-24-2020 Laparoscopic-assisted sigmoidectomy RELOAD,BLUE 60 FDA Start: 01-24-2020 Laparoscopic-assisted sigmoidectomy STAPLER,CDH25 ETHICON FDA Start: 01-24-2020 Laparoscopic-assisted sigmoidectomy CLIP,BURAKNIKA RODRIGUEZ ASHLYNERICK FDA Start: 01-24-2020 Laparoscopic-assisted sigmoidectomy RELOAD,BLUE 60 FDA Start: 01-24-2020 Laparoscopic-assisted sigmoidectomy STAPLER,CDH25 ETHICON FDA Start: 01-24-2020 Laparoscopic-assisted sigmoidectomy CLIP,BURAKNIKA CHÁVEZ FDA Start: 01-24-2020 Laparoscopic-assisted sigmoidectomy RELOAD,BLUE 60 FDA Start: 01-24-2020 Laparoscopic-assisted sigmoidectomy STAPLER,CDH25 ETHICON FDA Start: 01-24-2020 Laparoscopic-assisted sigmoidectomy CLIP,BURAKNIKA CHÁVEZ FDA Start: 01-24-2020 Laparoscopic-assisted sigmoidectomy RELOAD,BLUE 60 FDA Start: 01-24-2020 Laparoscopic-assisted sigmoidectomy STAPLER,CDH25 ETHICON FDA Start: 01-24-2020 Laparoscopic-assisted sigmoidectomy CLIP,BURAKNIKA CHÁVEZ FDA Start: 01-24-2020 Laparoscopic-assisted sigmoidectomy RELOAD,BLUE 60 FDA Start: 01-24-2020 Laparoscopic-assisted sigmoidectomy STAPLER,CDH25 ETHICON FDA Start: 01-24-2020 Laparoscopic-assisted sigmoidectomy CLIP,BURAKNIKA CHÁVEZ FDA Start: 01-24-2020 Laparoscopic-assisted sigmoidectomy RELOAD,BLUE 60 FDA Start: 01-24-2020 Laparoscopic-assisted sigmoidectomy STAPLER,CDH25 ETHICON FDA Start: 01-24-2020 Laparoscopic-assisted sigmoidectomy CLIP,CAROLYNEERICK CHÁVEZ FDA Start: 01-24-2020 Laparoscopic-assisted sigmoidectomy RELOAD,BLUE 60 FDA Start: 01-24-2020 Laparoscopic-assisted sigmoidectomy STAPLER,CDH25 ETHICON FDA Start: 01-24-2020 Goals Date Patient Goal Desired Activity /State Functional Status Date Assessment Result Facility 12-27-2018 LP-IR Score <25 [facility] [[email or web address] Medicine Work Phone: Comment on above: INSULIN RESISTANCE Keith MONTES <--Insulin Sensitive Insulin Resistant--> Percentile in Reference PopulationInsulin Resistance ScoreLP-IR Score Low 25th 50th 75th High <27 27 45 63 >63LP-IR Score is inaccurate if patient is non-fasting. .The LP-IR score is a laboratory developed index that has beenassociated with insulin resistance and diabetes risk and should beused as one component of a physician's clinical assessment. TheLP-IR score listed above has not been cleared by the [place] Food andDrug Administration. PATIENT WAS FASTINGP ERFORMED BY: [facility] [id number] [facility] [id number] BY: [facility] [id number] [facility] [id number] Mental Status Date Assessment Result Facility 01-26-2024 Cognitive function Awake;Alert;A ppropriate;Fol lows Commands [facility] Work Phone: 01-12-2024 Cognitive function Voice/Name [facility] Work Phone: 07-31-2023 Cognitive function Awake;Alert;A ppropriate;Fol lows Commands [facility] Work Phone: 01-23-2023 Cognitive function Voice/Name [facility] Work Phone: 07-15-2022 Cognitive function Awake;Alert;A ppropriate;Fol lows Commands [facility] Work Phone: 12-31-2021 Cognitive function Awake;Alert;A ppropriate;Fol lows Commands [facility] Work Phone: Clinical Notes 08-16-2023 to 01-12-2024 Note Date & Type Note Facility 01-12-2024 Procedure note [facility] 01-12-2024 Procedure note [facility] 08-16-2023 Discharge summary Note Date/Time August 16, 2023 1:05pm [facility] Medical Records Department [address] [place] [address] Emergency Department Summary 08/16/23 MR#: [id number] Acct: [id number] Name: YARIELErnstMONSE Corona Rep #:[id number] : 1955 68 From: Mis Arrington DO PCP: Dr. Meghna Gregory, Status:RE G ER Location: ED HPI History of Present Illness Chief Complaint: Head Injury Detail of Chief Complaint: Headache after head injury Informant: patient Narrative Narrative: Patient presents the emergency department complaint of a headache. Patient states that she fell yesterday striking her head and was seen in the emergency department. Patient states that she has MS and has a foot drop on her right foot and she was coming up the steps when she caught the step and fell onto the left side and hit her head. She had CT imaging of her brain and C-spine that were unremarkable. She went home and she was having a headache but this morningaround 4 AM started having more severe headache and nausea and feeling like she was dizzy. She presents via EMS. Denies chest pain or abdomen pain. She denies dysuria or recent illness. [facility] Medical History Back pain Diverticulitis of large intestine with abscess History of diverticulitis History of multiple sclerosis HTN (hypertension) Osteoarthritis Osteoporosis Peritonitis (acute) generalized Sepsis Sinus tachycardia by electrocardiogram Thyroid nodule Home Medications gabapentin 100 mg capsule 100 mg PO BIDCM nerve pain 01/30/17 [History Last Taken 01/23/20] gabapentin 300 mg capsule 300 mg PO QHS MS 01/30/17 [History Last Taken 01/22/20] alendronate 35 mg tablet 35 mg PO TOBIAS bone health 06/06/19 [History Last Taken 01/19/20] cholecalciferol (vitamin D3) 50 mcg (2,000 unit) tablet 2,000 unit PO DAILY bonehealth 06/06/19 [History Last Taken 01/23/20] calcium carbonate 500 mg calcium (1,250 mg) chewable tablet (Calci-Chew) 500 mg PO DAILY 10/07/19 [History Last Taken Unknown] fluticasone propionate 50 mcg/actuation nasal spray,suspension 1 spray NASAL DAILY 04/30/20 [History Last Taken Unknown] ocrelizumab 30 mg/mL intravenous solution 300 mg IV .TWICE YEARLY MS 04/30/20 [History Last Taken Unknown] doxycycline monohydrate 50 mg capsule 50 mg PO DAILY 12/31/21 [History Last Taken Unknown] baclofen 10 mg tablet 10 mg PO TID MS 03/07/22 [History Last Taken Unknown] methylphenidate HCl 5 mg tablet (Ritalin) 5 mg PO DAILY PRN Anxiety 03/07/22 [History Last Taken Unknown] estradiol 0.01% (0.1 mg/gram) vaginal cream (Estrace) See Rx Instructions vaginal .COMPLEX #42.5 grams 07/14/22 [Rx Last Taken Unknown] ammonium lactate 12 % topical cream 1 applic topical DAILY PRN dry skin 07/31/23[History Last Taken Unknown] ondansetron 4 mg disintegrating tablet 4 mg PO Q8H PRN PRN Nausea #10 tabs 08/15/23 [Rx Last Taken Unknown] hydrocodone-acetaminophen 5-325mg 5mg-325mg 1 tab PO Q4H PRN PRN Pain 2 days #10TABLETS 08/16/23 [Rx Last Taken Unknown] Allergy/AdvReac Type Severity Reaction Status Date / Time Sulfa (Sulfonamide Allergy Intermediate Hives Verified 08/15/23 07:38 Antibiotics) Family History Mother Thyroid disorder Grandfather Colon cancer Daughter Cancer skin Other Diabetes Surgical History History of appendectomy History of colonoscopy (~2013) History of tonsillectomy History of tubal ligation Status post colectomy Social History household members: spouse number of children: 2 current occupational status: retired history of recent travel: No sexually active: Yes Smoking Status: Never smoker alcohol intake: never substance use type: does not use what type of physical activity do you participate in: bicycling and aerobics frequency: daily seatbelt use: always do you feel safe at home: Yes additional social history: - Eric ROS ROS ED Review of Systems ROS Unobtainable: other Constitutional Constitutional ED: Reports lethargy; Denies chills, fever(s), sweats or weight loss Eyes Eyes: Denies blurry vision, change in vision or diplopia ENT ENT ED: Denies rhinorrhea or sore throat Cardiovascular Cardiovascular: Denies chest pain, orthopnea or racing heartbeat Respiratory/Chest Respiratory/Chest: Denies cough, dyspnea, dyspnea on exertion, orthopnea or sputum Gastrointestinal Gastrointestinal: Reports nausea; Denies abdominal pain, diarrhea or vomiting Genitourinary Genitourinary ED: Denies dysuria, hematuria or urinary frequency Musculoskeletal Musculoskeletal: Denies arthralgias, back pain, myalgias or neck pain Integumentary Denies abscess, Abrasions or rash Neurologic Neurologic: Reports headache(s); Denies weakness Psychiatric Psychiatric: Denies anxiety, depression or suicidal thoughts Endocrine Endocrinology: Denies polydipsia, polyphagia or polyuria Hematologic/Lymphatic Hematologic/Lymphatic: Denies easy bleeding, easy bruising or lymphadenopathy Allergic/Immunologic Allergic/Immunologic ED: Denies mouth swelling, tongue swelling or urticaria EXAM Physical Exam Const Vital Signs: 08/16/23 12:09 Temperature 96.2 F L Temperature Source Temporal Pulse Rate 75 Respiratory Rate 20 H Blood Pressure 161/111 H Blood Pressure Mean 127 Pulse Ox 99 Oxygen Delivery Method Room Air Positive well nourished and well developed General Appearance ED: well developed and NAD HEENT Reports TM's clear and moist mucous membranes normocephalic and atraumatic; Negative for trauma or tenderness Tympanic Membrane ED: Yes TM's clear Eyes PERRL and EOMs intact bilaterally General Eye ED: Negative for pale conjunctiva or scleral icterus Neck no lymphadenopathy, supple and no JVD General: Negative for tenderness Chest Wall inspection of chest normal and palpation of chest normal Chest: Negative for tenderness Resp normal respiratory effort and clear to auscultation bilaterally Effort and Inspection: Negative for respiratory distress or pain with movement Auscultation: Negative for rhonchi, wheezes or diminished lung sounds Cardio regular rate, regular rhythm, S1 normal heart sound, S2 normal heart sound and no murmurs Peripheral Pulses: pulses 2+ throughout GI normal to inspection, nondistended, normoactive bowel sounds, soft to palpation,non-tender, non-distended and no masses Back/Spine no CVA tenderness and no thoracic nor lumbar tenderness Extremity normal to inspection General Extremety ED: Negative for edema General Extremity: Negative for edema Neuro oriented x3, CN's II-XII intact bilaterally, no sensory deficits noted and gait normal Neuro Narrative: .Finger-nose and heel rodgers testing within normal limits Hallpike maneuver negative for nystagmus. Sensorium / Orientation: awake, alert, oriented to person, oriented to place andoriented to time Motor Exam: strength 5/5 throughout and strength abnormal Psych mental status grossly normal Skin no rashes or lesions noted and no wounds MDM MDM MDM Narrative Medical decision making narrative: Patient presents to the emergency department with headache and dizziness since falling and hitting her head yesterday. Initially seen in the emergency department yesterday and had CT scan of the brain as well as C-spine which did not show any acute injury. Patient states that she had a headache that was manageable until this morning around 4:00 when she had a more severe headache soshe comes in for evaluation. CT scan of the brain without contrast was repeatedto rule out delayed intracranial hemorrhage which was negative for bleeding or traumatic injury. Patient had an IV line established and was given Toradol as well as morphine and Zofran and she had good improvement with that. Patient wasable to ambulate with her walker to the bathroom and back. I offered her admission for symptom control but she would prefer to go home. I will write herprescription for few [place] for pain. Advised to follow-up with her primary carephysician within next 3 to 5 days. I suspect likely concussion syndrome. Radiography Diagnostic Testing: Clinical Impression(s) from Imaging Studies Brain CT 08/16/23 13:03 IMPRESSION: Chronic involutional changes of the brain. Electronically Signed: Antoine Holbrook MD at 13:35 EST , Discharge Plan Triage Chief Complaint: Head Injury ED Provider: Mis Arrington Dx/Rx/DC Orders Clinical Impression: Concussion, Headache, Neck pain Instructions: ED Concussion, ED Head Injury (Adult), ED Neck Pain Prescriptions: New hydrocodone-acetaminophen [hydrocodone-acetaminophen] 5-325 mg tablet 1 tab PO Q4H PRN PRN (Reason: Pain) 2 Days Qty: 10 0RF No Action calcium carbonate [Calci-Chew] 500 mg calcium (1,250 mg) tablet,chewable 500 mg PO DAILY methylphenidate HCl [Ritalin] 5 mg tablet 5 mg PO DAILY PRN (Reason: Anxiety) gabapentin 300 MG capsule 300 mg PO QHS gabapentin 100 MG capsule 100 mg PO BIDCM Patient Comments: WITH BREAKFAST AND LUNCH baclofen 10 mg tablet 10 mg PO TID alendronate 35 MG tablet 35 mg PO TOBIAS cholecalciferol (vitamin D3) 2,000 UNIT tablet 2,000 unit PO DAILY fluticasone propionate 1 SPRAY spray,suspension 1 spray NASAL DAILY ocrelizumab 300 MG/10 ML solution 300 mg IV .TWICE YEARLY Rx Instructions: NEXT DOSE 06/04/20 doxycycline monohydrate 50 mg Capsule 50 mg PO DAILY ammonium lactate 12 % cream 1 applic topical DAILY PRN (Reason: dry skin) ondansetron [ondansetron] 4 mg tablet,disintegrating 4 mg PO Q8H PRN PRN (Reason: Nausea) Qty: 10 0RF estradiol [Estrace] 0.01 % (0.1 mg/gram) cream See Rx Instructions VAGINAL .COMPLEX Qty: 42.5 2RF Rx Instructions: pea sized amount VAGINAL 3 nights per week Primary Care Provider: Meghna Gregory Referrals: Meghna Gregory DO [Primary Care Provider] - 3-5 Days Disposition Disposition: Home, Self Care What to do if you have Problems For any increased pain, shortness of breath, bleeding, nausea or vomiting, chestpain, or any unexpected problems, contact your Primary Care Provider. Call [facility] ([phone]) or report to the closest Emergency Room. Call 911 if necessary. 08/16/23 1551 <Electronically signed by Mis Arrington DO> Cosigner Signature (if applicable): CC: Dr. Meghna Gregory DO ~ Signed [facility] Work Phone: Discharge summary Author Yoel Marquez [facility] August 15, 2023 9:07am Note Date/Time August 15, 2023 7:58am [facility] Medical Records Department [address] [place] [address] Emergency Department Summary 08/15/23 MR#: [id number] Acct: [id number] Name: MONSE BLEVINS Rep #:[id number] : 1955 68 From: Yoel Marquez MD PCP: Dr. Meghna Gregory DO Status:RE G ER Location: ED HPI History of Present Illness Chief Complaint: Head Injury Informant: patient Narrative Narrative: Patient presents after head injury. Patient has multiple sclerosis. She was walking out of her garage into the house. She has a drop toe and it caught on the steps. This caused her to fall back onto the concrete garage floor and hit her head. No loss of consciousness. But since the accident she feels a little bit lightheaded when standing. She is not nauseated. She also has some soreness in her neck. No pain further downher back. No chest pain. No leg pain. She is not on any blood thinners. [facility] Medical History Back pain Diverticulitis of large intestine with abscess History of diverticulitis History of multiple sclerosis HTN (hypertension) Osteoarthritis Osteoporosis Peritonitis (acute) generalized Sepsis Sinus tachycardia by electrocardiogram Thyroid nodule Home Medications gabapentin 100 mg capsule 100 mg PO BIDCM nerve pain 01/30/17 [History Last Taken 01/23/20] gabapentin 300 mg capsule 300 mg PO QHS MS 01/30/17 [History Last Taken 01/22/20] alendronate 35 mg tablet 35 mg PO TOBIAS bone health 06/06/19 [History Last Taken 01/19/20] cholecalciferol (vitamin D3) 50 mcg (2,000 unit) tablet 2,000 unit PO DAILY bonehealth 06/06/19 [History Last Taken 01/23/20] calcium carbonate 500 mg calcium (1,250 mg) chewable tablet (Calci-Chew) 500 mg PO DAILY 10/07/19 [History Last Taken Unknown] fluticasone propionate 50 mcg/actuation nasal spray,suspension 1 spray NASAL DAILY 04/30/20 [History Last Taken Unknown] ocrelizumab 30 mg/mL intravenous solution 300 mg IV .TWICE YEARLY MS 04/30/20 [History Last Taken Unknown] doxycycline monohydrate 50 mg capsule 50 mg PO DAILY 12/31/21 [History Last Taken Unknown] baclofen 10 mg tablet 10 mg PO TID MS 03/07/22 [History Last Taken Unknown] methylphenidate HCl 5 mg tablet (Ritalin) 5 mg PO DAILY PRN Anxiety 03/07/22 [History Last Taken Unknown] estradiol 0.01% (0.1 mg/gram) vaginal cream (Estrace) See Rx Instructions vaginal .COMPLEX #42.5 grams 07/14/22 [Rx Last Taken Unknown] ammonium lactate 12 % topical cream 1 applic topical DAILY PRN dry skin 07/31/23[History Last Taken Unknown] ondansetron 4 mg disintegrating tablet 4 mg PO Q8H PRN PRN Nausea #10 tabs 08/15/23 [Rx Last Taken Unknown] Allergy/AdvReac Type Severity Reaction Status Date / Time Sulfa (Sulfonamide Allergy Intermediate Hives Verified 08/15/23 07:38 Antibiotics) Family History Mother Thyroid disorder Grandfather Colon cancer Daughter Cancer skin Other Diabetes Surgical History History of appendectomy History of colonoscopy (~2013) History of tonsillectomy History of tubal ligation Status post colectomy Social History household members: spouse number of children: 2 current occupational status: retired history of recent travel: No sexually active: Yes Smoking Status: Never smoker alcohol intake: never substance use type: does not use what type of physical activity do you participate in: bicycling and aerobics frequency: daily seatbelt use: always do you feel safe at home: Yes additional social history: - Eric GUAJARDO ED Constitutional Constitutional ED: Denies chills or fever(s) Eyes Eyes: Denies blurry vision or change in vision ENT ENT ED: Reports other Details: See history of present illness. ; Denies ear pain, rhinorrhea or sore throat Cardiovascular Cardiovascular: Denies chest pain or palpitations Respiratory/Chest Respiratory/Chest: Denies cough Gastrointestinal Gastrointestinal: Denies nausea or vomiting Musculoskeletal Musculoskeletal: Reports neck pain; Denies arthralgias or back pain Integumentary Denies Abrasions or rash Neurologic Neurologic: Reports headache(s); Denies paresthesias or weakness Endocrine Endocrinology: Denies polydipsia or polyuria Hematologic/Lymphatic Hematologic/Lymphatic: Denies easy bleeding or easy bruising Allergic/Immunologic Allergic/Immunologic ED: Denies urticaria EXAM Physical Exam Narrative Exam Narrative: CONSTITUTIONAL: Patient is nontoxic in appearance. The patient looks comfortable. Work of breathing looks normal. She carries on a normal conversation. HEENT: No notable laceration contusion or abrasion at this time. No step-off. No auricular trauma noted. EYES: No conjunctival injection. No proptosis. Range of motion is normal. No photophobia. Pupils are normal and reactive. NECK: I am not getting tenderness focally. It is just diffusely sore. No bruising visible yet at this point. CARDIOVASCULAR: Regular rate. Regular rhythm. No notable murmur. No JVD. RESPIRATORY: No respiratory distress. Breathing is unlabored. No wheezes. GASTROINTESTINAL: Not distended. Bowel sounds are normal. No tenderness. GENITOURINARY: No CVA tenderness. MUSCULOSKELETAL: Atraumatic. No tenderness or pain with motion NEUROLOGICAL: Patient is alert and appropriate. No focal deficit noted. SKIN: No noted rashes. No diaphoresis. PSYCHIATRIC: Patient is calm. Mood is appropriate. Const Vital Signs: 08/15/23 07:36 08/15/23 07:54 Temperature 97.8 F Temperature Source Temporal Pulse Rate 88 Respiratory Rate 18 Respiratory Effort Normal Respiratory Depth Normal Respiratory Pattern Normal Blood Pressure 110/53 L Blood Pressure Mean 72 Pulse Ox 99 Oxygen Delivery Method Room Air Room Air MDM MDM MDM Narrative Medical decision making narrative: My independent interpretation the patient's CT scan of the head shows no acute process. I see no fracture or bleeding. Final reading is chronic involutional changes of the brain. My independent or potation of the CT scan of the patient's neck shows arthritis but no acute process. Final reading is similar. Checked the patient again. She does have a headache. I explained that we do not usually like using strong pain medicines for headaches post injury. These can produce nausea and confusion which can confuse the picture related to the injury. I will write for some Zofran because she states she gets a little bit nauseated at times with motions. We can use Tylenol. I discussed concussion and expected course and reasons to return. Radiography Diagnostic Testing: Clinical Impression(s) from Imaging Studies Brain CT 08/15/23 07:53 IMPRESSION: Chronic involutional changes of the brain. Electronically Signed: Antoine Holbrook MD at 8:48 EST , Cervical Spine CT 08/15/23 07:53 IMPRESSION: Multilevel degenerative changes, as described above. Electronically Signed: Antoine Holbrook MD at 8:50 EST , Discharge Plan Triage Chief Complaint: Head Injury ED Provider: Yoel Marquez Dx/Rx/DC Orders Clinical Impression: Fall on steps, Hx of multiple sclerosis, Closed head injury with concussion, Cervical strain Instructions: ED Head Injury (Adult) Prescriptions: New ondansetron [ondansetron] 4 mg tablet,disintegrating 4 mg PO Q8H PRN PRN (Reason: Nausea) Qty: 10 0RF No Action calcium carbonate [Calci-Chew] 500 mg calcium (1,250 mg) tablet,chewable 500 mg PO DAILY methylphenidate HCl [Ritalin] 5 mg tablet 5 mg PO DAILY PRN (Reason: Anxiety) gabapentin 300 MG capsule 300 mg PO QHS gabapentin 100 MG capsule 100 mg PO BIDCM Patient Comments: WITH BREAKFAST AND LUNCH baclofen 10 mg tablet 10 mg PO TID alendronate 35 MG tablet 35 mg PO TOBIAS cholecalciferol (vitamin D3) 2,000 UNIT tablet 2,000 unit PO DAILY fluticasone propionate 1 SPRAY spray,suspension 1 spray NASAL DAILY ocrelizumab 300 MG/10 ML solution 300 mg IV .TWICE YEARLY Rx Instructions: NEXT DOSE 06/04/20 doxycycline monohydrate 50 mg Capsule 50 mg PO DAILY ammonium lactate 12 % cream 1 applic topical DAILY PRN (Reason: dry skin) estradiol [Estrace] 0.01 % (0.1 mg/gram) cream See Rx Instructions VAGINAL .COMPLEX Qty: 42.5 2RF Rx Instructions: pea sized amount VAGINAL 3 nights per week Primary Care Provider: Meghna Gregory Referrals: Meghna Gregory, [Primary Care Provider] - 1 Week if not improving Disposition Disposition: Home, Self Care What to do if you have Problems For any increased pain, shortness of breath, bleeding, nausea or vomiting, chestpain, or any unexpected problems, contact your Primary Care Provider. Call [facility] ([phone]) or report to the closest Emergency Room. Call 911 if necessary. 08/15/23 0907 <Electronically signed by Yoel Marquez MD> Cosigner Signature (if applicable): CC: Dr. Meghna Gregory, DO ~ Signed [facility] Work Phone: evaluation noteNo assessment information available [facility] Work Phone: evaluation note* Diagnosis Onset Date Resolution Status Atrophic vaginitis acute [facility] Work Phone: evaluation note* Diagnosis Onset Date Resolution Status Atrophic vaginitis acute Encounter for routine gynecological examination noneactive Thyroid nodule acute [facility] Work Phone: evaluation note* Diagnosis Onset Date Resolution Status Thyroid nodule acute [facility] Work Phone: evaluation note* Diagnosis Onset Date Resolution Status Infected laceration acute [facility] Work Phone: evaluation note* Diagnosis Onset Date Resolution Status Infected laceration resolved Atrophic vaginitis acute Osteopenia acute Routine gynecological examination noneactive [facility] Work Phone: evaluation note* Diagnosis Onset Date Resolution Status Atrophic vaginitis acute Osteopenia acute Routine gynecological examination noneactive Thyroid nodule acute [facility] Work Phone: evaluation note* Diagnosis Onset Date Resolution Status Abnormal bruising acute History of colon polyps acut e [facility] Work Phone: evaluation note* Diagnosis Onset Date Resolution Status Admit Date Encounter for routine gynecological examination noneactive March 032024 8:05am [facility] Work Phone: History and physical note Author Dionte Alva [facility] January 12, 2024 8:57am Note Date/Time January 12, 2024 8:5 7am [facility] Medical Records Department [address] [place] [address] History & Physical Exam 01/12/24 0855 MR#: [id number] Acct: [id number] Name: MONSE BLEVINS Rep #:[id number] : 1955 68 From: Dionte gaspar MD PCP: Dr. Meghna Gregory, Status:[facility] Location: [place] [id number] HPI - General HPI Narrative MONSE BLEVINS, is a 68 F who presents for surveillance colonoscopy. Patient haddiverticulitis and had colon resection back in 2019. After I resected the sigmoid colon I performed a colonoscopy and found to adenomas in the rectum. These were large and removed and came back as tubular adenomas and she was recommended to repeat in 3 years. She has not had any issues since her colon resection. She denies any abdominal pain or blood in the stool. [facility] Medical History (Updated 01/12/24 @ 08:[address] Dionte Alva MD) Arthritis Back pain Diverticulitis of large intestine with abscess Easy bruising History of adenomatous polyp of colon History of diverticulitis History of multiple sclerosis HTN (hypertension) Leg cramps Low iron Migraine headache Multiple sclerosis Non-smoker Osteoarthritis Osteoporosis Peritonitis (acute) generalized Sepsis Sinus tachycardia by electrocardiogram Thyroid nodule Wears glasses Home Medications gabapentin 100 mg capsule 100 mg PO BIDCM nerve pain 01/30/17 [History Last Taken 01/23/20] gabapentin 300 mg capsule 300 mg PO QHS MS 01/30/17 [History Last Taken 01/11/24] cholecalciferol (vitamin D3) 50 mcg (2,000 unit) tablet 2,000 unit PO DAILY [facility] 06/06/19 [History Last Taken 01/11/24] calcium carbonate (Calci-Chew) 500 mg PO DAILY 10/07/19 [History Last Taken Unknown] fluticasone propionate 50 mcg/actuation nasal spray,suspension 1 spray NASAL DAILY 04/30/20 [History Last Taken 01/11/24] ocrelizumab 30 mg/mL intravenous solution 300 mg IV .TWICE YEARLY MS 04/30/20 [History Last Taken Unknown] baclofen 10 mg tablet 10 mg PO TID MS 03/07/22 [History Last Taken Unknown] methylphenidate HCl 5 mg tablet (Ritalin) 5 mg PO DAILY PRN MULTIPLE SCLEROSIS FATIGUE 03/07/22 [History Last Taken Unknown] estradiol 0.01% (0.1 mg/gram) vaginal cream (Estrace) See Rx Instructions vaginal .COMPLEX #42.5 grams 07/14/22 [Rx Last Taken Unknown] ammonium lactate 12 % topical cream 1 applic topical DAILY PRN dry skin 07/31/23[History Last Taken 01/12/24] denosumab 60 mg/mL subcutaneous syringe (Prolia) 60 mg subcut [id number] 11/15/23 [History Last Taken Unknown] doxycycline monohydrate 50 mg capsule 50 mg PO DAILY PRN ROSACEA 11/15/23 [History Last Taken Unknown] ferrous sulfate 325 mg (65 mg iron) tablet 325 mg PO .MON,Mon11/15/23 [History Last Taken 01/05/24] apremilast 30 mg tablet (Otezla) 30 mg PO DAILY 01/12/24 [History Last Taken 01/11/24] Allergy/AdvReac Type Severity Reaction Status Date / Time Sulfa (Sulfonamide Allergy Intermediate Hives Verified 01/12/24 08:38 Antibiotics) Family History Mother Thyroid disorder Grandfather Colon cancer Daughter Cancer skin Other Diabetes Surgical History History of appendectomy History of colonoscopy (~2013) History of tonsillectomy History of tubal ligation Status post colectomy Social History household members: spouse number of children: 2 current occupational status: retired history of recent travel: No sexually active: Yes Smoking Status: Never smoker alcohol intake: never substance use type: does not use what type of physical activity do you participate in: bicycling and aerobics frequency: daily seatbelt use: always do you feel safe at home: Yes additional social history: - Eric Past Medical/Surgical History Planned Operation Planned Operative Procedure/s: CSCOPE S.O.S: No Previous Hospitalizations/Surgeries HX Hospitalizations: No HX of Surgeries: appendectomy, tonsillectomy 09/19-diverticulitis COLECTOMY 01/25/20 Any Problems With Anesthesia: Yes (PONV) You/Your Family Experience Fever (Hyperthermia) With Anes: No Cholinesterase deficiency: No Cardiovascular Hx Chest Pain within Last 2 months: No Hx of Irregular Heartbeat and/or Afib: No Hx Heart Attack: No Hx Congestive Heart Failure: No Hx Rheumatic Fever: No Hx Hypertension: No Hx Internal Defibrillator: No Hx Pacemaker: No Hx Cardiac Catheterization: No Hx Cardiac Surgery/Stents/Etc.: No Hx Stress Test: No Hx Pain in Legs when Walking/Leg Cramps: No Respiratory Chronic Cough: No HX of Shortness of Breath: No Hoarseness: No Hx Chronic Obstructive Pulmonary Disease (COPD): No Hx Asthma: No Hx Emphysema: No Hx Sleep Apnea: No CPAP: No BIPAP: No Hx Respiratory Tract Infection/Cold (presently): No Do You Snore Loudly (louder than talking or can be heard): No Do You Often Feel Tired/ Fatigued/ Sleepy Dring Daytime?: No Has Anyone Observed You Stop Breathing During Sleep?: No Result (for STOP score): Negative Hx Smoking: No Smoking Status: Never smoker Gastrointestinal Controlled With Meds: No Hx Gastrointestinal Disorders: Yes (DIVERTICULITIS) Hx Gastrointestinal Bleed: No Hx Ulcer: No Hx Hiatal Hernia: No Difficulty Chewing/Swallowing: No Special diet followed at home: No Hx Unplanned Weight Loss of 20#: No HX Unplanned Weight Gain of 20#: No Neurological Hx Seizures: No HX Syncope/Blackout Spells/Unconsciousness: No Hx Transient Ischemic Attacks (TIA): No Hx Multiple Sclerosis: Yes Hx Parkinson's Disease: No Hx Head/Neck Injury: Yes (arthritis in neck) Hx Headaches: No Hx Back Injury/Pain: Yes Recent Onset of Speech Difficulty: No Restless Legs: No Does patient have nerve stimulator: No Blood Disorder Hx Leukemia: No Bleeding Tendencies: No Hx Deep Vein Thrombosis: No Hx High Cholesterol: No Blood Transmitted Disease: No Hx Hepatitis: No Hx Cirrhosis: No Hx Anemia: No Hx Blood Disorders: No Reproduction : No Is Patient Lactating: No Hx Hysterectomy: No Hx Tubal Ligation: Yes Are You Post Menopause: No Genitourinary Hx Renal Disease: No Hx Dialysis: No Musculoskeletal Hx Arthritis: Yes (c-spine per pt. report) Hx Rheumatoid Arthritis: No Hx Gout: No Recent Onset of an Orthopedic Problem: No Endocrine Hx Diabetes: No Insulin: No Thyroid Disease: No Hx Steroid Therapy: Yes (PREDNISONE FOR POISON DEMARCUS) Psycho/Social Hx Substance Use: No Hx Alcohol Use: No Hx Anxiety: No Hx Depression: No Mental Illness: No Hx Dementia: No Miscellaneous Hx Cancer: No Recent Exposure to Contagious Disease: No Hx of C-Diff: No Any Loose Teeth: No Allergies Sulfa (Sulfonamide Antibiotics) Allergy (Intermediate, Verified 01/12/24 08:38) Hives Discharge Is Pt Admitted From a Fdc, or a Detention: No After D/C, Where Do you Plan to Go: Return Home From the PAT History Number of Risk Factors: 2 Vital Signs Vital Signs Vital Signs: 01/12/24 08:41 01/12/24 08:41 Temperature 98.6 F Temperature Source Temporal Pulse Rate 93 Respiratory Rate 16 Respiratory Pattern Normal Blood Pressure 114/72 Blood Pressure Mean 86 Blood Pressure Source Monitor Blood Pressure Position Supine Blood Pressure Location Right Arm Pulse Ox 99 Oxygen Delivery Method Room Air Weight Weight: 95 lb 7.362 oz Body Mass Index (BMI) 19.3 Physical Exam Const alert and oriented x3 HEENT normocephalic Eyes PERRL Resp normal respiratory effort and normal air movement Cardio regular rate and regular rhythm GI soft to palpation, non-tender and non-distended Extremity normal to inspection Assessment & Plan Assessment/Plan (1) History of colon polyps: PLAN: Patient has a history of 2 large polyps in the rectum during her last colonoscopy in 2019. She was recommended to have a repeat in 3 years. She doesnot have any issues at this time. I explained endoscopy in detail to the patient. I explained the risks including but not limited to stroke or heart attack with anesthesia, perforation of the GI tract, bleeding, infection. I explained that any of these could necessitate further emergency surgery. The patient understands and all questions were answered sufficiently. The patient wishes toproceed with procedure. Dionte Alva MD Pager: [facility] [address] [place] [address], [address] [place] [phone] Office: Surgery Risks - Colonoscopy Risks Include but are not Limited To: Risks include but are not limited to: Bleeding, perforation requiring further surgery, inability to complete colonoscopy requiring barium enema. 01/12/24 0857 <Electronically signed by Dionte Alva MD> Cosigner Signature (if applicable): CC: Dr. Dionte Alva MD; Dr. Meghna Gregory DO~ Signed [facility] Work Phone: Instructions* Name Dates Details How to Access Health Informa tion Online using Patient Portal and 3rd [employer] Apps Indication:Non-smoker Start:18-Nov-2020 Instruction Type:Patient Education Patient Instructions Indication:Non-smoker Start:18-Nov-2020 Instruction Type:Provider Instructions for Treatment Patient Instructions Indication:Non-smoker Start:27-Jul-2020 Instruction Type:Provider Instructions for Treatment How to access health informa tion online Indication:Non-smoker Start:27-Jul-2020 Instruction Type:Patient Education How to access health informa tion online - Detail Indication:Non-smoker Start:27-Jul-2020 Instruction Type:Patient Education How to access health informa tion online Indication:BMI less than 19,adult Start:23-Apr-2020 Instruction Type:Patient Education How to access health informa tion online - Detail Indication:BMI less than 19,adult Start:23-Apr-2020 Instruction Type:Patient Education Patient Instructions Indication:BMI less than 19,adult Start:23-Apr-2020 Instruction Type:Provider Instructions for Treatment How to access health informa tion online Indication:Body mass index (BMI) of 19.0-19.9 in adult Start:19-Feb-2020 Instruction Type:Patient Education How to access health informa tion online - Detail Indication:Body mass index (BMI) of 19.0-19.9 in adult Start:19-Feb-2020 Instruction Type:Patient Education Patient Instructions Indication:Body mass index (BMI) of 19.0-19.9 in adult Start:19-Feb-2020 Instruction Type:Provider Instructions for Treatment How to access health informa tion online Indication:Non-smoker Start:05-Feb-2020 Instruction Type:Patient Education How to access health informa tion online - Detail Indication:Non-smoker Start:05-Feb-2020 Instruction Type:Patient Education Patient Instructions Indication:Non-smoker Start:05-Feb-2020 Instruction Type:Provider Instructions for Treatment How to access health informa tion online Indication:BMI less than 19,adult Start:31-Jan-2020 Instruction Type:Patient Education How to access health informa tion online - Detail Indication:BMI less than 19,adult Start:31-Jan-2020 Instruction Type:Patient Education Patient Instructions Indication:BMI less than 19,adult Start:31-Jan-2020 Instruction Type:Provider Instructions for Treatment Patient Instructions Indication:Constipation Start:30-Dec-2019 Instruction Type:Provider Instructions for Treatment How to access health informa tion online Indication:Non-smoker Start:28-Oct-2019 Instruction Type:Patient Education How to access health informa tion online - Detail Indication:Non-smoker Start:28-Oct-2019 Instruction Type:Patient Education Patient Instructions Indication:Non-smoker Start:28-Oct-2019 Instruction Type:Provider Instructions for Treatment How to access health informa tion online Indication:Non-smoker Start:27-Sep-2019 Instruction Type:Patient Education How to access health informa tion online - Detail Indication:Non-smoker Start:27-Sep-2019 Instruction Type:Patient Education Patient Instructions Indication:Non-smoker Start:27-Sep-2019 Instruction Type:Provider Instructions for Treatment How to access health informa tion online Indication:Body mass index (BMI) 20.0-20.9, adult Start:08-Feb-2019 Instruction Type:Patient Education How to access health informa tion online - Detail Indication:Body mass index (BMI) 20.0-20.9, adult Start:08-Feb-2019 Instruction Type:Patient Education Patient Instructions Indication:Body mass index (BMI) 20.0-20.9, adult Start:08-Feb-2019 Instruction Type:Provider Instructions for Treatment How to access health informa tion online Indication:Non-smoker Start:27-Dec-2018 Instruction Type:Patient Education How to access health informa tion online - Detail Indication:Non-smoker Start:27-Dec-2018 Instruction Type:Patient Education Patient Instructions Indication:Non-smoker Start:27-Dec-2018 Instruction Type:Provider Instructions for Treatment How to access health informa tion online Indication:Body mass index (BMI) 20.0-20.9, adult Start:10-Oct-2018 Instruction Type:Patient Education How to access health informa tion online - Detail Indication:Body mass index (BMI) 20.0-20.9, adult Start:10-Oct-2018 Instruction Type:Patient Education Patient Instructions Indication:Body mass index (BMI) 20.0-20.9, adult Start:10-Oct-2018 Instruction Type:Provider Instructions for Treatment How to access health informa tion online Indication:Body mass index (BMI) 20.0-20.9, adult Start:13-Mar-2018 Instruction Type:Patient Education How to access health informa tion online - Detail Indication:Body mass index (BMI) 20.0-20.9, adult Start:13-Mar-2018 Instruction Type:Patient Education Patient Instructions Indication:Body mass index (BMI) 20.0-20.9, adult Start:13-Mar-2018 Instruction Type:Provider Instructions for Treatment How to access health informa tion online Indication:Body mass index (BMI) 20.0-20.9, adult Start:16-Feb-2018 Instruction Type:Patient Education How to access health informa tion online - Detail Indication:Body mass index (BMI) 20.0-20.9, adult Start:16-Feb-2018 Instruction Type:Patient Education Patient Instructions Indication:Body mass index (BMI) 20.0-20.9, adult Start:16-Feb-2018 Instruction Type:Provider Instructions for Treatment How to access health informa tion online Indication:Body mass index (BMI) 20.0-20.9, adult Start:07-Aug-2017 Instruction Type:Patient Education How to access health informa tion online - Detail Indication:Body mass index (BMI) 20.0-20.9, adult Start:07-Aug-2017 Instruction Type:Patient Education Patient Instructions Indication:Headache, acute Start:07-Aug-2017 Instruction Type:Provider Instructions for Treatment How to access health informa tion online Indication:Body mass index (BMI) 20.0-20.9, adult Start:30-Jan-2017 Instruction Type:Patient Education How to access health informa tion online - Detail Indication:Body mass index (BMI) 20.0-20.9, adult Start:30-Jan-2017 Instruction Type:Patient Education Patient Instructions Indication:Body mass index (BMI) 20.0-20.9, adult Start:30-Jan-2017 Instruction Type:Provider Instructions for Treatment Patient Instructions Indication:Screening for HPV (human papillomavirus) (Renamed from Encounter for screening for human papillomavirus (HPV)) Start:11-Aug-2016 Instruction Type:Provider Instructions for Treatment Patient Instructions Indication:Dysuria Start:08-Nov-2013 Instruction Type:Provider Instructions for Treatment Patient Instructions Indication:Well woman exam with routine gynecological exam Start:23-Sep-2013 Instruction Type:Provider Instructions for Treatment Patient Instructions Indication:Low Back Pain Start:23-Nov-2012 Instruction Type:Provider Instructions for Treatment Patient Instructions Indication:Low Back Pain Start:08-Nov-2012 Instruction Type:Provider Instructions for Treatment Patient Instructions Indication:Osteopenia Start:21-Sep-2012 Instruction Type:Provider Instructions for Treatment [facility] Work Phone: Instructions* Name Dates Details How to Access Health Informa tion Online using Patient Portal and [employer]rd [employer] Apps Indication:Non-smoker Start:18-Nov-2020 Instruction Type:Patient Education Patient Instructions Indication:Non-smoker Start:18-Nov-2020 Instruction Type:Provider Instructions for Treatment Patient Instructions Indication:Non-smoker Start:27-Jul-2020 Instruction Type:Provider Instructions for Treatment How to access health informa tion online Indication:Non-smoker Start:27-Jul-2020 Instruction Type:Patient Education How to access health informa tion online - Detail Indication:Non-smoker Start:27-Jul-2020 Instruction Type:Patient Education How to access health informa tion online Indication:BMI less than 19,adult Start:23-Apr-2020 Instruction Type:Patient Education How to access health informa tion online - Detail Indication:BMI less than 19,adult Start:23-Apr-2020 Instruction Type:Patient Education Patient Instructions Indication:BMI less than 19,adult Start:23-Apr-2020 Instruction Type:Provider Instructions for Treatment How to access health informa tion online Indication:Body mass index (BMI) of 19.0-19.9 in adult Start:19-Feb-2020 Instruction Type:Patient Education How to access health informa tion online - Detail Indication:Body mass index (BMI) of 19.0-19.9 in adult Start:19-Feb-2020 Instruction Type:Patient Education Patient Instructions Indication:Body mass index (BMI) of 19.0-19.9 in adult Start:19-Feb-2020 Instruction Type:Provider Instructions for Treatment How to access health informa tion online Indication:Non-smoker Start:05-Feb-2020 Instruction Type:Patient Education How to access health informa tion online - Detail Indication:Non-smoker Start:05-Feb-2020 Instruction Type:Patient Education Patient Instructions Indication:Non-smoker Start:05-Feb-2020 Instruction Type:Provider Instructions for Treatment How to access health informa tion online Indication:BMI less than 19,adult Start:31-Jan-2020 Instruction Type:Patient Education How to access health informa tion online - Detail Indication:BMI less than 19,adult Start:31-Jan-2020 Instruction Type:Patient Education Patient Instructions Indication:BMI less than 19,adult Start:31-Jan-2020 Instruction Type:Provider Instructions for Treatment Patient Instructions Indication:Constipation Start:30-Dec-2019 Instruction Type:Provider Instructions for Treatment How to access health informa tion online Indication:Non-smoker Start:28-Oct-2019 Instruction Type:Patient Education How to access health informa tion online - Detail Indication:Non-smoker Start:28-Oct-2019 Instruction Type:Patient Education Patient Instructions Indication:Non-smoker Start:28-Oct-2019 Instruction Type:Provider Instructions for Treatment How to access health informa tion online Indication:Non-smoker Start:27-Sep-2019 Instruction Type:Patient Education How to access health informa tion online - Detail Indication:Non-smoker Start:27-Sep-2019 Instruction Type:Patient Education Patient Instructions Indication:Non-smoker Start:27-Sep-2019 Instruction Type:Provider Instructions for Treatment How to access health informa tion online Indication:Body mass index (BMI) 20.0-20.9, adult Start:08-Feb-2019 Instruction Type:Patient Education How to access health informa tion online - Detail Indication:Body mass index (BMI) 20.0-20.9, adult Start:08-Feb-2019 Instruction Type:Patient Education Patient Instructions Indication:Body mass index (BMI) 20.0-20.9, adult Start:08-Feb-2019 Instruction Type:Provider Instructions for Treatment How to access health informa tion online Indication:Non-smoker Start:27-Dec-2018 Instruction Type:Patient Education How to access health informa tion online - Detail Indication:Non-smoker Start:27-Dec-2018 Instruction Type:Patient Education Patient Instructions Indication:Non-smoker Start:27-Dec-2018 Instruction Type:Provider Instructions for Treatment How to access health informa tion online Indication:Body mass index (BMI) 20.0-20.9, adult Start:10-Oct-2018 Instruction Type:Patient Education How to access health informa tion online - Detail Indication:Body mass index (BMI) 20.0-20.9, adult Start:10-Oct-2018 Instruction Type:Patient Education Patient Instructions Indication:Body mass index (BMI) 20.0-20.9, adult Start:10-Oct-2018 Instruction Type:Provider Instructions for Treatment How to access health informa tion online Indication:Body mass index (BMI) 20.0-20.9, adult Start:13-Mar-2018 Instruction Type:Patient Education How to access health informa tion online - Detail Indication:Body mass index (BMI) 20.0-20.9, adult Start:13-Mar-2018 Instruction Type:Patient Education Patient Instructions Indication:Body mass index (BMI) 20.0-20.9, adult Start:13-Mar-2018 Instruction Type:Provider Instructions for Treatment How to access health informa tion online Indication:Body mass index (BMI) 20.0-20.9, adult Start:16-Feb-2018 Instruction Type:Patient Education How to access health informa tion online - Detail Indication:Body mass index (BMI) 20.0-20.9, adult Start:16-Feb-2018 Instruction Type:Patient Education Patient Instructions Indication:Body mass index (BMI) 20.0-20.9, adult Start:16-Feb-2018 Instruction Type:Provider Instructions for Treatment How to access health informa tion online Indication:Body mass index (BMI) 20.0-20.9, adult Start:07-Aug-2017 Instruction Type:Patient Education How to access health informa tion online - Detail Indication:Body mass index (BMI) 20.0-20.9, adult Start:07-Aug-2017 Instruction Type:Patient Education Patient Instructions Indication:Headache, acute Start:07-Aug-2017 Instruction Type:Provider Instructions for Treatment How to access health informa tion online Indication:Body mass index (BMI) 20.0-20.9, adult Start:30-Jan-2017 Instruction Type:Patient Education How to access health informa tion online - Detail Indication:Body mass index (BMI) 20.0-20.9, adult Start:30-Jan-2017 Instruction Type:Patient Education Patient Instructions Indication:Body mass index (BMI) 20.0-20.9, adult Start:30-Jan-2017 Instruction Type:Provider Instructions for Treatment Patient Instructions Indication:Screening for HPV (human papillomavirus) (Renamed from Encounter for screening for human papillomavirus (HPV)) Start:11-Aug-2016 Instruction Type:Provider Instructions for Treatment Patient Instructions Indication:Dysuria Start:08-Nov-2013 Instruction Type:Provider Instructions for Treatment Patient Instructions Indication:Well woman exam with routine gynecological exam Start:23-Sep-2013 Instruction Type:Provider Instructions for Treatment Patient Instructions Indication:Low Back Pain Start:23-Nov-2012 Instruction Type:Provider Instructions for Treatment Patient Instructions Indication:Low Back Pain Start:08-Nov-2012 Instruction Type:Provider Instructions for Treatment Patient Instructions Indication:Osteopenia Start:21-Sep-2012 Instruction Type:Provider Instructions for Treatment [facility]; [facility] Work Phone: Instructions* Name Dates Details Patient Instructions Indication:Non-smoker Start:25-Feb-2022 Instruction Type:Provider Instructions for Treatment How to Access Health Informa tion Online using Patient Portal and [employer]rd [employer] Apps Indication:Non-smoker Start:25-Feb-2022 Instruction Type:Patient Education How to Access Health Informa tion Online using Patient Portal and [employer]rd [employer] Apps Indication:Non-smoker Start:18-Nov-2020 Instruction Type:Patient Education Patient Instructions Indication:Non-smoker Start:18-Nov-2020 Instruction Type:Provider Instructions for Treatment Patient Instructions Indication:Non-smoker Start:27-Jul-2020 Instruction Type:Provider Instructions for Treatment How to access health informa tion online Indication:Non-smoker Start:27-Jul-2020 Instruction Type:Patient Education How to access health informa tion online - Detail Indication:Non-smoker Start:27-Jul-2020 Instruction Type:Patient Education How to access health informa tion online Indication:BMI less than 19,adult Start:23-Apr-2020 Instruction Type:Patient Education How to access health informa tion online - Detail Indication:BMI less than 19,adult Start:23-Apr-2020 Instruction Type:Patient Education Patient Instructions Indication:BMI less than 19,adult Start:23-Apr-2020 Instruction Type:Provider Instructions for Treatment How to access health informa tion online Indication:Body mass index (BMI) of 19.0-19.9 in adult Start:19-Feb-2020 Instruction Type:Patient Education How to access health informa tion online - Detail Indication:Body mass index (BMI) of 19.0-19.9 in adult Start:19-Feb-2020 Instruction Type:Patient Education Patient Instructions Indication:Body mass index (BMI) of 19.0-19.9 in adult Start:19-Feb-2020 Instruction Type:Provider Instructions for Treatment How to access health informa tion online Indication:Non-smoker Start:05-Feb-2020 Instruction Type:Patient Education How to access health informa tion online - Detail Indication:Non-smoker Start:05-Feb-2020 Instruction Type:Patient Education Patient Instructions Indication:Non-smoker Start:05-Feb-2020 Instruction Type:Provider Instructions for Treatment How to access health informa tion online Indication:BMI less than 19,adult Start:31-Jan-2020 Instruction Type:Patient Education How to access health informa tion online - Detail Indication:BMI less than 19,adult Start:31-Jan-2020 Instruction Type:Patient Education Patient Instructions Indication:BMI less than 19,adult Start:31-Jan-2020 Instruction Type:Provider Instructions for Treatment Patient Instructions Indication:Constipation Start:30-Dec-2019 Instruction Type:Provider Instructions for Treatment How to access health informa tion online Indication:Non-smoker Start:28-Oct-2019 Instruction Type:Patient Education How to access health informa tion online - Detail Indication:Non-smoker Start:28-Oct-2019 Instruction Type:Patient Education Patient Instructions Indication:Non-smoker Start:28-Oct-2019 Instruction Type:Provider Instructions for Treatment How to access health informa tion online Indication:Non-smoker Start:27-Sep-2019 Instruction Type:Patient Education How to access health informa tion online - Detail Indication:Non-smoker Start:27-Sep-2019 Instruction Type:Patient Education Patient Instructions Indication:Non-smoker Start:27-Sep-2019 Instruction Type:Provider Instructions for Treatment How to access health informa tion online Indication:Body mass index (BMI) 20.0-20.9, adult Start:08-Feb-2019 Instruction Type:Patient Education How to access health informa tion online - Detail Indication:Body mass index (BMI) 20.0-20.9, adult Start:08-Feb-2019 Instruction Type:Patient Education Patient Instructions Indication:Body mass index (BMI) 20.0-20.9, adult Start:08-Feb-2019 Instruction Type:Provider Instructions for Treatment How to access health informa tion online Indication:Non-smoker Start:27-Dec-2018 Instruction Type:Patient Education How to access health informa tion online - Detail Indication:Non-smoker Start:27-Dec-2018 Instruction Type:Patient Education Patient Instructions Indication:Non-smoker Start:27-Dec-2018 Instruction Type:Provider Instructions for Treatment How to access health informa tion online Indication:Body mass index (BMI) 20.0-20.9, adult Start:10-Oct-2018 Instruction Type:Patient Education How to access health informa tion online - Detail Indication:Body mass index (BMI) 20.0-20.9, adult Start:10-Oct-2018 Instruction Type:Patient Education Patient Instructions Indication:Body mass index (BMI) 20.0-20.9, adult Start:10-Oct-2018 Instruction Type:Provider Instructions for Treatment How to access health informa tion online Indication:Body mass index (BMI) 20.0-20.9, adult Start:13-Mar-2018 Instruction Type:Patient Education How to access health informa tion online - Detail Indication:Body mass index (BMI) 20.0-20.9, adult Start:13-Mar-2018 Instruction Type:Patient Education Patient Instructions Indication:Body mass index (BMI) 20.0-20.9, adult Start:13-Mar-2018 Instruction Type:Provider Instructions for Treatment How to access health informa tion online Indication:Body mass index (BMI) 20.0-20.9, adult Start:16-Feb-2018 Instruction Type:Patient Education How to access health informa tion online - Detail Indication:Body mass index (BMI) 20.0-20.9, adult Start:16-Feb-2018 Instruction Type:Patient Education Patient Instructions Indication:Body mass index (BMI) 20.0-20.9, adult Start:16-Feb-2018 Instruction Type:Provider Instructions for Treatment How to access health informa tion online Indication:Body mass index (BMI) 20.0-20.9, adult Start:07-Aug-2017 Instruction Type:Patient Education How to access health informa tion online - Detail Indication:Body mass index (BMI) 20.0-20.9, adult Start:07-Aug-2017 Instruction Type:Patient Education Patient Instructions Indication:Headache, acute Start:07-Aug-2017 Instruction Type:Provider Instructions for Treatment How to access health informa tion online Indication:Body mass index (BMI) 20.0-20.9, adult Start:30-Jan-2017 Instruction Type:Patient Education How to access health informa tion online - Detail Indication:Body mass index (BMI) 20.0-20.9, adult Start:30-Jan-2017 Instruction Type:Patient Education Patient Instructions Indication:Body mass index (BMI) 20.0-20.9, adult Start:30-Jan-2017 Instruction Type:Provider Instructions for Treatment Patient Instructions Indication:Screening for HPV (human papillomavirus) (Renamed from Encounter for screening for human papillomavirus (HPV)) Start:11-Aug-2016 Instruction Type:Provider Instructions for Treatment Patient Instructions Indication:Dysuria Start:08-Nov-2013 Instruction Type:Provider Instructions for Treatment Patient Instructions Indication:Well woman exam with routine gynecological exam Start:23-Sep-2013 Instruction Type:Provider Instructions for Treatment Patient Instructions Indication:Low Back Pain Start:23-Nov-2012 Instruction Type:Provider Instructions for Treatment Patient Instructions Indication:Low Back Pain Start:08-Nov-2012 Instruction Type:Provider Instructions for Treatment Patient Instructions Indication:Osteopenia Start:21-Sep-2012 Instruction Type:Provider Instructions for Treatment [facility]; [facility] Work Phone: Instructions* Name Dates Details Patient Instructions Indication:Non-smoker Start:25-Feb-2022 Instruction Type:Provider Instructions for Treatment How to Access Health Informa tion Online using Patient Portal and [employer]rd [employer] Apps Indication:Non-smoker Start:25-Feb-2022 Instruction Type:Patient Education How to Access Health Informa tion Online using Patient Portal and [employer] Apps Indication:Non-smoker Start:18-Nov-2020 Instruction Type:Patient Education Patient Instructions Indication:Non-smoker Start:18-Nov-2020 Instruction Type:Provider Instructions for Treatment Patient Instructions Indication:Non-smoker Start:27-Jul-2020 Instruction Type:Provider Instructions for Treatment How to access health informa tion online Indication:Non-smoker Start:27-Jul-2020 Instruction Type:Patient Education How to access health informa tion online - Detail Indication:Non-smoker Start:27-Jul-2020 Instruction Type:Patient Education How to access health informa tion online Indication:BMI less than 19,adult Start:23-Apr-2020 Instruction Type:Patient Education How to access health informa tion online - Detail Indication:BMI less than 19,adult Start:23-Apr-2020 Instruction Type:Patient Education Patient Instructions Indication:BMI less than 19,adult Start:23-Apr-2020 Instruction Type:Provider Instructions for Treatment How to access health informa tion online Indication:Body mass index (BMI) of 19.0-19.9 in adult Start:19-Feb-2020 Instruction Type:Patient Education How to access health informa tion online - Detail Indication:Body mass index (BMI) of 19.0-19.9 in adult Start:19-Feb-2020 Instruction Type:Patient Education Patient Instructions Indication:Body mass index (BMI) of 19.0-19.9 in adult Start:19-Feb-2020 Instruction Type:Provider Instructions for Treatment How to access health informa tion online Indication:Non-smoker Start:05-Feb-2020 Instruction Type:Patient Education How to access health informa tion online - Detail Indication:Non-smoker Start:05-Feb-2020 Instruction Type:Patient Education Patient Instructions Indication:Non-smoker Start:05-Feb-2020 Instruction Type:Provider Instructions for Treatment How to access health informa tion online Indication:BMI less than 19,adult Start:31-Jan-2020 Instruction Type:Patient Education How to access health informa tion online - Detail Indication:BMI less than 19,adult Start:31-Jan-2020 Instruction Type:Patient Education Patient Instructions Indication:BMI less than 19,adult Start:31-Jan-2020 Instruction Type:Provider Instructions for Treatment Patient Instructions Indication:Constipation Start:30-Dec-2019 Instruction Type:Provider Instructions for Treatment How to access health informa tion online Indication:Non-smoker Start:28-Oct-2019 Instruction Type:Patient Education How to access health informa tion online - Detail Indication:Non-smoker Start:28-Oct-2019 Instruction Type:Patient Education Patient Instructions Indication:Non-smoker Start:28-Oct-2019 Instruction Type:Provider Instructions for Treatment How to access health informa tion online Indication:Non-smoker Start:27-Sep-2019 Instruction Type:Patient Education How to access health informa tion online - Detail Indication:Non-smoker Start:27-Sep-2019 Instruction Type:Patient Education Patient Instructions Indication:Non-smoker Start:27-Sep-2019 Instruction Type:Provider Instructions for Treatment How to access health informa tion online Indication:Body mass index (BMI) 20.0-20.9, adult Start:08-Feb-2019 Instruction Type:Patient Education How to access health informa tion online - Detail Indication:Body mass index (BMI) 20.0-20.9, adult Start:08-Feb-2019 Instruction Type:Patient Education Patient Instructions Indication:Body mass index (BMI) 20.0-20.9, adult Start:08-Feb-2019 Instruction Type:Provider Instructions for Treatment How to access health informa tion online Indication:Non-smoker Start:27-Dec-2018 Instruction Type:Patient Education How to access health informa tion online - Detail Indication:Non-smoker Start:27-Dec-2018 Instruction Type:Patient Education Patient Instructions Indication:Non-smoker Start:27-Dec-2018 Instruction Type:Provider Instructions for Treatment How to access health informa tion online Indication:Body mass index (BMI) 20.0-20.9, adult Start:10-Oct-2018 Instruction Type:Patient Education How to access health informa tion online - Detail Indication:Body mass index (BMI) 20.0-20.9, adult Start:10-Oct-2018 Instruction Type:Patient Education Patient Instructions Indication:Body mass index (BMI) 20.0-20.9, adult Start:10-Oct-2018 Instruction Type:Provider Instructions for Treatment How to access health informa tion online Indication:Body mass index (BMI) 20.0-20.9, adult Start:13-Mar-2018 Instruction Type:Patient Education How to access health informa tion online - Detail Indication:Body mass index (BMI) 20.0-20.9, adult Start:13-Mar-2018 Instruction Type:Patient Education Patient Instructions Indication:Body mass index (BMI) 20.0-20.9, adult Start:13-Mar-2018 Instruction Type:Provider Instructions for Treatment How to access health informa tion online Indication:Body mass index (BMI) 20.0-20.9, adult Start:16-Feb-2018 Instruction Type:Patient Education How to access health informa tion online - Detail Indication:Body mass index (BMI) 20.0-20.9, adult Start:16-Feb-2018 Instruction Type:Patient Education Patient Instructions Indication:Body mass index (BMI) 20.0-20.9, adult Start:16-Feb-2018 Instruction Type:Provider Instructions for Treatment How to access health informa tion online Indication:Body mass index (BMI) 20.0-20.9, adult Start:07-Aug-2017 Instruction Type:Patient Education How to access health informa tion online - Detail Indication:Body mass index (BMI) 20.0-20.9, adult Start:07-Aug-2017 Instruction Type:Patient Education Patient Instructions Indication:Headache, acute Start:07-Aug-2017 Instruction Type:Provider Instructions for Treatment How to access health informa tion online Indication:Body mass index (BMI) 20.0-20.9, adult Start:30-Jan-2017 Instruction Type:Patient Education How to access health informa tion online - Detail Indication:Body mass index (BMI) 20.0-20.9, adult Start:30-Jan-2017 Instruction Type:Patient Education Patient Instructions Indication:Body mass index (BMI) 20.0-20.9, adult Start:30-Jan-2017 Instruction Type:Provider Instructions for Treatment Patient Instructions Indication:Screening for HPV (human papillomavirus) (Renamed from Encounter for screening for human papillomavirus (HPV)) Start:11-Aug-2016 Instruction Type:Provider Instructions for Treatment Patient Instructions Indication:Dysuria Start:08-Nov-2013 Instruction Type:Provider Instructions for Treatment Patient Instructions Indication:Well woman exam with routine gynecological exam Start:23-Sep-2013 Instruction Type:Provider Instructions for Treatment Patient Instructions Indication:Low Back Pain Start:23-Nov-2012 Instruction Type:Provider Instructions for Treatment Patient Instructions Indication:Low Back Pain Start:08-Nov-2012 Instruction Type:Provider Instructions for Treatment Patient Instructions Indication:Osteopenia Start:21-Sep-2012 Instruction Type:Provider Instructions for Treatment [facility]; [facility] Work Phone: Instructions* Name Dates Details Patient Instructions Indication:Non-smoker Start:25-Feb-2022 Instruction Type:Provider Instructions for Treatment How to Access Health Informa tion Online using Patient Portal and [employer] Apps Indication:Non-smoker Start:25-Feb-2022 Instruction Type:Patient Education How to Access Health Informa tion Online using Patient Portal and [employer] Indication:Non-smoker Start:18-Nov-2020 Instruction Type:Patient Education Patient Instructions Indication:Non-smoker Start:18-Nov-2020 Instruction Type:Provider Instructions for Treatment Patient Instructions Indication:Non-smoker Start:27-Jul-2020 Instruction Type:Provider Instructions for Treatment How to access health informa tion online Indication:Non-smoker Start:27-Jul-2020 Instruction Type:Patient Education How to access health informa tion online - Detail Indication:Non-smoker Start:27-Jul-2020 Instruction Type:Patient Education How to access health informa tion online Indication:BMI less than 19,adult Start:23-Apr-2020 Instruction Type:Patient Education How to access health informa tion online - Detail Indication:BMI less than 19,adult Start:23-Apr-2020 Instruction Type:Patient Education Patient Instructions Indication:BMI less than 19,adult Start:23-Apr-2020 Instruction Type:Provider Instructions for Treatment How to access health informa tion online Indication:Body mass index (BMI) of 19.0-19.9 in adult Start:19-Feb-2020 Instruction Type:Patient Education How to access health informa tion online - Detail Indication:Body mass index (BMI) of 19.0-19.9 in adult Start:19-Feb-2020 Instruction Type:Patient Education Patient Instructions Indication:Body mass index (BMI) of 19.0-19.9 in adult Start:19-Feb-2020 Instruction Type:Provider Instructions for Treatment How to access health informa tion online Indication:Non-smoker Start:05-Feb-2020 Instruction Type:Patient Education How to access health informa tion online - Detail Indication:Non-smoker Start:05-Feb-2020 Instruction Type:Patient Education Patient Instructions Indication:Non-smoker Start:05-Feb-2020 Instruction Type:Provider Instructions for Treatment How to access health informa tion online Indication:BMI less than 19,adult Start:31-Jan-2020 Instruction Type:Patient Education How to access health informa tion online - Detail Indication:BMI less than 19,adult Start:31-Jan-2020 Instruction Type:Patient Education Patient Instructions Indication:BMI less than 19,adult Start:31-Jan-2020 Instruction Type:Provider Instructions for Treatment Patient Instructions Indication:Constipation Start:30-Dec-2019 Instruction Type:Provider Instructions for Treatment How to access health informa tion online Indication:Non-smoker Start:28-Oct-2019 Instruction Type:Patient Education How to access health informa tion online - Detail Indication:Non-smoker Start:28-Oct-2019 Instruction Type:Patient Education Patient Instructions Indication:Non-smoker Start:28-Oct-2019 Instruction Type:Provider Instructions for Treatment How to access health informa tion online Indication:Non-smoker Start:27-Sep-2019 Instruction Type:Patient Education How to access health informa tion online - Detail Indication:Non-smoker Start:27-Sep-2019 Instruction Type:Patient Education Patient Instructions Indication:Non-smoker Start:27-Sep-2019 Instruction Type:Provider Instructions for Treatment How to access health informa tion online Indication:Body mass index (BMI) 20.0-20.9, adult Start:08-Feb-2019 Instruction Type:Patient Education How to access health informa tion online - Detail Indication:Body mass index (BMI) 20.0-20.9, adult Start:08-Feb-2019 Instruction Type:Patient Education Patient Instructions Indication:Body mass index (BMI) 20.0-20.9, adult Start:08-Feb-2019 Instruction Type:Provider Instructions for Treatment How to access health informa tion online Indication:Non-smoker Start:27-Dec-2018 Instruction Type:Patient Education How to access health informa tion online - Detail Indication:Non-smoker Start:27-Dec-2018 Instruction Type:Patient Education Patient Instructions Indication:Non-smoker Start:27-Dec-2018 Instruction Type:Provider Instructions for Treatment How to access health informa tion online Indication:Body mass index (BMI) 20.0-20.9, adult Start:10-Oct-2018 Instruction Type:Patient Education How to access health informa tion online - Detail Indication:Body mass index (BMI) 20.0-20.9, adult Start:10-Oct-2018 Instruction Type:Patient Education Patient Instructions Indication:Body mass index (BMI) 20.0-20.9, adult Start:10-Oct-2018 Instruction Type:Provider Instructions for Treatment How to access health informa tion online Indication:Body mass index (BMI) 20.0-20.9, adult Start:13-Mar-2018 Instruction Type:Patient Education How to access health informa tion online - Detail Indication:Body mass index (BMI) 20.0-20.9, adult Start:13-Mar-2018 Instruction Type:Patient Education Patient Instructions Indication:Body mass index (BMI) 20.0-20.9, adult Start:13-Mar-2018 Instruction Type:Provider Instructions for Treatment How to access health informa tion online Indication:Body mass index (BMI) 20.0-20.9, adult Start:16-Feb-2018 Instruction Type:Patient Education How to access health informa tion online - Detail Indication:Body mass index (BMI) 20.0-20.9, adult Start:16-Feb-2018 Instruction Type:Patient Education Patient Instructions Indication:Body mass index (BMI) 20.0-20.9, adult Start:16-Feb-2018 Instruction Type:Provider Instructions for Treatment How to access health informa tion online Indication:Body mass index (BMI) 20.0-20.9, adult Start:07-Aug-2017 Instruction Type:Patient Education How to access health informa tion online - Detail Indication:Body mass index (BMI) 20.0-20.9, adult Start:07-Aug-2017 Instruction Type:Patient Education Patient Instructions Indication:Headache, acute Start:07-Aug-2017 Instruction Type:Provider Instructions for Treatment How to access health informa tion online Indication:Body mass index (BMI) 20.0-20.9, adult Start:30-Jan-2017 Instruction Type:Patient Education How to access health informa tion online - Detail Indication:Body mass index (BMI) 20.0-20.9, adult Start:30-Jan-2017 Instruction Type:Patient Education Patient Instructions Indication:Body mass index (BMI) 20.0-20.9, adult Start:30-Jan-2017 Instruction Type:Provider Instructions for Treatment Patient Instructions Indication:Screening for HPV (human papillomavirus) (Renamed from Encounter for screening for human papillomavirus (HPV)) Start:11-Aug-2016 Instruction Type:Provider Instructions for Treatment Patient Instructions Indication:Dysuria Start:08-Nov-2013 Instruction Type:Provider Instructions for Treatment Patient Instructions Indication:Well woman exam with routine gynecological exam Start:23-Sep-2013 Instruction Type:Provider Instructions for Treatment Patient Instructions Indication:Low Back Pain Start:23-Nov-2012 Instruction Type:Provider Instructions for Treatment Patient Instructions Indication:Low Back Pain Start:08-Nov-2012 Instruction Type:Provider Instructions for Treatment Patient Instructions Indication:Osteopenia Start:21-Sep-2012 Instruction Type:Provider Instructions for Treatment [facility]; [facility] Work Phone: Instructions* Name Dates Details Patient Instructions Indication:Non-smoker Start:25-Feb-2022 Instruction Type:Provider Instructions for Treatment How to Access Health Informa tion Online using Patient Portal and [employer] Apps Indication:Non-smoker Start:25-Feb-2022 Instruction Type:Patient Education How to Access Health Informa tion Online using Patient Portal and [employer] Apps Indication:Non-smoker Start:18-Nov-2020 Instruction Type:Patient Education Patient Instructions Indication:Non-smoker Start:18-Nov-2020 Instruction Type:Provider Instructions for Treatment Patient Instructions Indication:Non-smoker Start:27-Jul-2020 Instruction Type:Provider Instructions for Treatment How to access health informa tion online Indication:Non-smoker Start:27-Jul-2020 Instruction Type:Patient Education How to access health informa tion online - Detail Indication:Non-smoker Start:27-Jul-2020 Instruction Type:Patient Education How to access health informa tion online Indication:BMI less than 19,adult Start:23-Apr-2020 Instruction Type:Patient Education How to access health informa tion online - Detail Indication:BMI less than 19,adult Start:23-Apr-2020 Instruction Type:Patient Education Patient Instructions Indication:BMI less than 19,adult Start:23-Apr-2020 Instruction Type:Provider Instructions for Treatment How to access health informa tion online Indication:Body mass index (BMI) of 19.0-19.9 in adult Start:19-Feb-2020 Instruction Type:Patient Education How to access health informa tion online - Detail Indication:Body mass index (BMI) of 19.0-19.9 in adult Start:19-Feb-2020 Instruction Type:Patient Education Patient Instructions Indication:Body mass index (BMI) of 19.0-19.9 in adult Start:19-Feb-2020 Instruction Type:Provider Instructions for Treatment How to access health informa tion online Indication:Non-smoker Start:05-Feb-2020 Instruction Type:Patient Education How to access health informa tion online - Detail Indication:Non-smoker Start:05-Feb-2020 Instruction Type:Patient Education Patient Instructions Indication:Non-smoker Start:05-Feb-2020 Instruction Type:Provider Instructions for Treatment How to access health informa tion online Indication:BMI less than 19,adult Start:31-Jan-2020 Instruction Type:Patient Education How to access health informa tion online - Detail Indication:BMI less than 19,adult Start:31-Jan-2020 Instruction Type:Patient Education Patient Instructions Indication:BMI less than 19,adult Start:31-Jan-2020 Instruction Type:Provider Instructions for Treatment Patient Instructions Indication:Constipation Start:30-Dec-2019 Instruction Type:Provider Instructions for Treatment How to access health informa tion online Indication:Non-smoker Start:28-Oct-2019 Instruction Type:Patient Education How to access health informa tion online - Detail Indication:Non-smoker Start:28-Oct-2019 Instruction Type:Patient Education Patient Instructions Indication:Non-smoker Start:28-Oct-2019 Instruction Type:Provider Instructions for Treatment How to access health informa tion online Indication:Non-smoker Start:27-Sep-2019 Instruction Type:Patient Education How to access health informa tion online - Detail Indication:Non-smoker Start:27-Sep-2019 Instruction Type:Patient Education Patient Instructions Indication:Non-smoker Start:27-Sep-2019 Instruction Type:Provider Instructions for Treatment How to access health informa tion online Indication:Body mass index (BMI) 20.0-20.9, adult Start:08-Feb-2019 Instruction Type:Patient Education How to access health informa tion online - Detail Indication:Body mass index (BMI) 20.0-20.9, adult Start:08-Feb-2019 Instruction Type:Patient Education Patient Instructions Indication:Body mass index (BMI) 20.0-20.9, adult Start:08-Feb-2019 Instruction Type:Provider Instructions for Treatment How to access health informa tion online Indication:Non-smoker Start:27-Dec-2018 Instruction Type:Patient Education How to access health informa tion online - Detail Indication:Non-smoker Start:27-Dec-2018 Instruction Type:Patient Education Patient Instructions Indication:Non-smoker Start:27-Dec-2018 Instruction Type:Provider Instructions for Treatment How to access health informa tion online Indication:Body mass index (BMI) 20.0-20.9, adult Start:10-Oct-2018 Instruction Type:Patient Education How to access health informa tion online - Detail Indication:Body mass index (BMI) 20.0-20.9, adult Start:10-Oct-2018 Instruction Type:Patient Education Patient Instructions Indication:Body mass index (BMI) 20.0-20.9, adult Start:10-Oct-2018 Instruction Type:Provider Instructions for Treatment How to access health informa tion online Indication:Body mass index (BMI) 20.0-20.9, adult Start:13-Mar-2018 Instruction Type:Patient Education How to access health informa tion online - Detail Indication:Body mass index (BMI) 20.0-20.9, adult Start:13-Mar-2018 Instruction Type:Patient Education Patient Instructions Indication:Body mass index (BMI) 20.0-20.9, adult Start:13-Mar-2018 Instruction Type:Provider Instructions for Treatment How to access health informa tion online Indication:Body mass index (BMI) 20.0-20.9, adult Start:16-Feb-2018 Instruction Type:Patient Education How to access health informa tion online - Detail Indication:Body mass index (BMI) 20.0-20.9, adult Start:16-Feb-2018 Instruction Type:Patient Education Patient Instructions Indication:Body mass index (BMI) 20.0-20.9, adult Start:16-Feb-2018 Instruction Type:Provider Instructions for Treatment How to access health informa tion online Indication:Body mass index (BMI) 20.0-20.9, adult Start:07-Aug-2017 Instruction Type:Patient Education How to access health informa tion online - Detail Indication:Body mass index (BMI) 20.0-20.9, adult Start:07-Aug-2017 Instruction Type:Patient Education Patient Instructions Indication:Headache, acute Start:07-Aug-2017 Instruction Type:Provider Instructions for Treatment How to access health informa tion online Indication:Body mass index (BMI) 20.0-20.9, adult Start:30-Jan-2017 Instruction Type:Patient Education How to access health informa tion online - Detail Indication:Body mass index (BMI) 20.0-20.9, adult Start:30-Jan-2017 Instruction Type:Patient Education Patient Instructions Indication:Body mass index (BMI) 20.0-20.9, adult Start:30-Jan-2017 Instruction Type:Provider Instructions for Treatment Patient Instructions Indication:Screening for HPV (human papillomavirus) (Renamed from Encounter for screening for human papillomavirus (HPV)) Start:11-Aug-2016 Instruction Type:Provider Instructions for Treatment Patient Instructions Indication:Dysuria Start:08-Nov-2013 Instruction Type:Provider Instructions for Treatment Patient Instructions Indication:Well woman exam with routine gynecological exam Start:23-Sep-2013 Instruction Type:Provider Instructions for Treatment Patient Instructions Indication:Low Back Pain Start:23-Nov-2012 Instruction Type:Provider Instructions for Treatment Patient Instructions Indication:Low Back Pain Start:08-Nov-2012 Instruction Type:Provider Instructions for Treatment Patient Instructions Indication:Osteopenia Start:21-Sep-2012 Instruction Type:Provider Instructions for Treatment [facility]; [facility] Work Phone: Instructions* Name Dates Details Patient Instructions Indication:Non-smoker Start:25-Feb-2022 Instruction Type:Provider Instructions for Treatment How to Access Health Informa tion Online using Patient Portal and [employer]rd [employer] Apps Indication:Non-smoker Start:25-Feb-2022 Instruction Type:Patient Education How to Access Health Informa tion Online using Patient Portal and [employer] Apps Indication:Non-smoker Start:18-Nov-2020 Instruction Type:Patient Education Patient Instructions Indication:Non-smoker Start:18-Nov-2020 Instruction Type:Provider Instructions for Treatment Patient Instructions Indication:Non-smoker Start:27-Jul-2020 Instruction Type:Provider Instructions for Treatment How to access health informa tion online Indication:Non-smoker Start:27-Jul-2020 Instruction Type:Patient Education How to access health informa tion online - Detail Indication:Non-smoker Start:27-Jul-2020 Instruction Type:Patient Education How to access health informa tion online Indication:BMI less than 19,adult Start:23-Apr-2020 Instruction Type:Patient Education How to access health informa tion online - Detail Indication:BMI less than 19,adult Start:23-Apr-2020 Instruction Type:Patient Education Patient Instructions Indication:BMI less than 19,adult Start:23-Apr-2020 Instruction Type:Provider Instructions for Treatment How to access health informa tion online Indication:Body mass index (BMI) of 19.0-19.9 in adult Start:19-Feb-2020 Instruction Type:Patient Education How to access health informa tion online - Detail Indication:Body mass index (BMI) of 19.0-19.9 in adult Start:19-Feb-2020 Instruction Type:Patient Education Patient Instructions Indication:Body mass index (BMI) of 19.0-19.9 in adult Start:19-Feb-2020 Instruction Type:Provider Instructions for Treatment How to access health informa tion online Indication:Non-smoker Start:05-Feb-2020 Instruction Type:Patient Education How to access health informa tion online - Detail Indication:Non-smoker Start:05-Feb-2020 Instruction Type:Patient Education Patient Instructions Indication:Non-smoker Start:05-Feb-2020 Instruction Type:Provider Instructions for Treatment How to access health informa tion online Indication:BMI less than 19,adult Start:31-Jan-2020 Instruction Type:Patient Education How to access health informa tion online - Detail Indication:BMI less than 19,adult Start:31-Jan-2020 Instruction Type:Patient Education Patient Instructions Indication:BMI less than 19,adult Start:31-Jan-2020 Instruction Type:Provider Instructions for Treatment Patient Instructions Indication:Constipation Start:30-Dec-2019 Instruction Type:Provider Instructions for Treatment How to access health informa tion online Indication:Non-smoker Start:28-Oct-2019 Instruction Type:Patient Education How to access health informa tion online - Detail Indication:Non-smoker Start:28-Oct-2019 Instruction Type:Patient Education Patient Instructions Indication:Non-smoker Start:28-Oct-2019 Instruction Type:Provider Instructions for Treatment How to access health informa tion online Indication:Non-smoker Start:27-Sep-2019 Instruction Type:Patient Education How to access health informa tion online - Detail Indication:Non-smoker Start:27-Sep-2019 Instruction Type:Patient Education Patient Instructions Indication:Non-smoker Start:27-Sep-2019 Instruction Type:Provider Instructions for Treatment How to access health informa tion online Indication:Body mass index (BMI) 20.0-20.9, adult Start:08-Feb-2019 Instruction Type:Patient Education How to access health informa tion online - Detail Indication:Body mass index (BMI) 20.0-20.9, adult Start:08-Feb-2019 Instruction Type:Patient Education Patient Instructions Indication:Body mass index (BMI) 20.0-20.9, adult Start:08-Feb-2019 Instruction Type:Provider Instructions for Treatment How to access health informa tion online Indication:Non-smoker Start:27-Dec-2018 Instruction Type:Patient Education How to access health informa tion online - Detail Indication:Non-smoker Start:27-Dec-2018 Instruction Type:Patient Education Patient Instructions Indication:Non-smoker Start:27-Dec-2018 Instruction Type:Provider Instructions for Treatment How to access health informa tion online Indication:Body mass index (BMI) 20.0-20.9, adult Start:10-Oct-2018 Instruction Type:Patient Education How to access health informa tion online - Detail Indication:Body mass index (BMI) 20.0-20.9, adult Start:10-Oct-2018 Instruction Type:Patient Education Patient Instructions Indication:Body mass index (BMI) 20.0-20.9, adult Start:10-Oct-2018 Instruction Type:Provider Instructions for Treatment How to access health informa tion online Indication:Body mass index (BMI) 20.0-20.9, adult Start:13-Mar-2018 Instruction Type:Patient Education How to access health informa tion online - Detail Indication:Body mass index (BMI) 20.0-20.9, adult Start:13-Mar-2018 Instruction Type:Patient Education Patient Instructions Indication:Body mass index (BMI) 20.0-20.9, adult Start:13-Mar-2018 Instruction Type:Provider Instructions for Treatment How to access health informa tion online Indication:Body mass index (BMI) 20.0-20.9, adult Start:16-Feb-2018 Instruction Type:Patient Education How to access health informa tion online - Detail Indication:Body mass index (BMI) 20.0-20.9, adult Start:16-Feb-2018 Instruction Type:Patient Education Patient Instructions Indication:Body mass index (BMI) 20.0-20.9, adult Start:16-Feb-2018 Instruction Type:Provider Instructions for Treatment How to access health informa tion online Indication:Body mass index (BMI) 20.0-20.9, adult Start:07-Aug-2017 Instruction Type:Patient Education How to access health informa tion online - Detail Indication:Body mass index (BMI) 20.0-20.9, adult Start:07-Aug-2017 Instruction Type:Patient Education Patient Instructions Indication:Headache, acute Start:07-Aug-2017 Instruction Type:Provider Instructions for Treatment How to access health informa tion online Indication:Body mass index (BMI) 20.0-20.9, adult Start:30-Jan-2017 Instruction Type:Patient Education How to access health informa tion online - Detail Indication:Body mass index (BMI) 20.0-20.9, adult Start:30-Jan-2017 Instruction Type:Patient Education Patient Instructions Indication:Body mass index (BMI) 20.0-20.9, adult Start:30-Jan-2017 Instruction Type:Provider Instructions for Treatment Patient Instructions Indication:Screening for HPV (human papillomavirus) (Renamed from Encounter for screening for human papillomavirus (HPV)) Start:11-Aug-2016 Instruction Type:Provider Instructions for Treatment Patient Instructions Indication:Dysuria Start:08-Nov-2013 Instruction Type:Provider Instructions for Treatment Patient Instructions Indication:Well woman exam with routine gynecological exam Start:23-Sep-2013 Instruction Type:Provider Instructions for Treatment Patient Instructions Indication:Low Back Pain Start:23-Nov-2012 Instruction Type:Provider Instructions for Treatment Patient Instructions Indication:Low Back Pain Start:08-Nov-2012 Instruction Type:Provider Instructions for Treatment Patient Instructions Indication:Osteopenia Start:21-Sep-2012 Instruction Type:Provider Instructions for Treatment [facility]; [facility] Work Phone: Instructions* Name Dates Details Patient Instructions Indication:Non-smoker Start:25-Feb-2022 Instruction Type:Provider Instructions for Treatment How to Access Health Informa tion Online using Patient Portal and [employer]rd [employer] Apps Indication:Non-smoker Start:25-Feb-2022 Instruction Type:Patient Education How to Access Health Informa tion Online using Patient Portal and [employer] Apps Indication:Non-smoker Start:18-Nov-2020 Instruction Type:Patient Education Patient Instructions Indication:Non-smoker Start:18-Nov-2020 Instruction Type:Provider Instructions for Treatment Patient Instructions Indication:Non-smoker Start:27-Jul-2020 Instruction Type:Provider Instructions for Treatment How to access health informa tion online Indication:Non-smoker Start:27-Jul-2020 Instruction Type:Patient Education How to access health informa tion online - Detail Indication:Non-smoker Start:27-Jul-2020 Instruction Type:Patient Education How to access health informa tion online Indication:BMI less than 19,adult Start:23-Apr-2020 Instruction Type:Patient Education How to access health informa tion online - Detail Indication:BMI less than 19,adult Start:23-Apr-2020 Instruction Type:Patient Education Patient Instructions Indication:BMI less than 19,adult Start:23-Apr-2020 Instruction Type:Provider Instructions for Treatment How to access health informa tion online Indication:Body mass index (BMI) of 19.0-19.9 in adult Start:19-Feb-2020 Instruction Type:Patient Education How to access health informa tion online - Detail Indication:Body mass index (BMI) of 19.0-19.9 in adult Start:19-Feb-2020 Instruction Type:Patient Education Patient Instructions Indication:Body mass index (BMI) of 19.0-19.9 in adult Start:19-Feb-2020 Instruction Type:Provider Instructions for Treatment How to access health informa tion online Indication:Non-smoker Start:05-Feb-2020 Instruction Type:Patient Education How to access health informa tion online - Detail Indication:Non-smoker Start:05-Feb-2020 Instruction Type:Patient Education Patient Instructions Indication:Non-smoker Start:05-Feb-2020 Instruction Type:Provider Instructions for Treatment How to access health informa tion online Indication:BMI less than 19,adult Start:31-Jan-2020 Instruction Type:Patient Education How to access health informa tion online - Detail Indication:BMI less than 19,adult Start:31-Jan-2020 Instruction Type:Patient Education Patient Instructions Indication:BMI less than 19,adult Start:31-Jan-2020 Instruction Type:Provider Instructions for Treatment Patient Instructions Indication:Constipation Start:30-Dec-2019 Instruction Type:Provider Instructions for Treatment How to access health informa tion online Indication:Non-smoker Start:28-Oct-2019 Instruction Type:Patient Education How to access health informa tion online - Detail Indication:Non-smoker Start:28-Oct-2019 Instruction Type:Patient Education Patient Instructions Indication:Non-smoker Start:28-Oct-2019 Instruction Type:Provider Instructions for Treatment How to access health informa tion online Indication:Non-smoker Start:27-Sep-2019 Instruction Type:Patient Education How to access health informa tion online - Detail Indication:Non-smoker Start:27-Sep-2019 Instruction Type:Patient Education Patient Instructions Indication:Non-smoker Start:27-Sep-2019 Instruction Type:Provider Instructions for Treatment How to access health informa tion online Indication:Body mass index (BMI) 20.0-20.9, adult Start:08-Feb-2019 Instruction Type:Patient Education How to access health informa tion online - Detail Indication:Body mass index (BMI) 20.0-20.9, adult Start:08-Feb-2019 Instruction Type:Patient Education Patient Instructions Indication:Body mass index (BMI) 20.0-20.9, adult Start:08-Feb-2019 Instruction Type:Provider Instructions for Treatment How to access health informa tion online Indication:Non-smoker Start:27-Dec-2018 Instruction Type:Patient Education How to access health informa tion online - Detail Indication:Non-smoker Start:27-Dec-2018 Instruction Type:Patient Education Patient Instructions Indication:Non-smoker Start:27-Dec-2018 Instruction Type:Provider Instructions for Treatment How to access health informa tion online Indication:Body mass index (BMI) 20.0-20.9, adult Start:10-Oct-2018 Instruction Type:Patient Education How to access health informa tion online - Detail Indication:Body mass index (BMI) 20.0-20.9, adult Start:10-Oct-2018 Instruction Type:Patient Education Patient Instructions Indication:Body mass index (BMI) 20.0-20.9, adult Start:10-Oct-2018 Instruction Type:Provider Instructions for Treatment How to access health informa tion online Indication:Body mass index (BMI) 20.0-20.9, adult Start:13-Mar-2018 Instruction Type:Patient Education How to access health informa tion online - Detail Indication:Body mass index (BMI) 20.0-20.9, adult Start:13-Mar-2018 Instruction Type:Patient Education Patient Instructions Indication:Body mass index (BMI) 20.0-20.9, adult Start:13-Mar-2018 Instruction Type:Provider Instructions for Treatment How to access health informa tion online Indication:Body mass index (BMI) 20.0-20.9, adult Start:16-Feb-2018 Instruction Type:Patient Education How to access health informa tion online - Detail Indication:Body mass index (BMI) 20.0-20.9, adult Start:16-Feb-2018 Instruction Type:Patient Education Patient Instructions Indication:Body mass index (BMI) 20.0-20.9, adult Start:16-Feb-2018 Instruction Type:Provider Instructions for Treatment How to access health informa tion online Indication:Body mass index (BMI) 20.0-20.9, adult Start:07-Aug-2017 Instruction Type:Patient Education How to access health informa tion online - Detail Indication:Body mass index (BMI) 20.0-20.9, adult Start:07-Aug-2017 Instruction Type:Patient Education Patient Instructions Indication:Headache, acute Start:07-Aug-2017 Instruction Type:Provider Instructions for Treatment How to access health informa tion online Indication:Body mass index (BMI) 20.0-20.9, adult Start:30-Jan-2017 Instruction Type:Patient Education How to access health informa tion online - Detail Indication:Body mass index (BMI) 20.0-20.9, adult Start:30-Jan-2017 Instruction Type:Patient Education Patient Instructions Indication:Body mass index (BMI) 20.0-20.9, adult Start:30-Jan-2017 Instruction Type:Provider Instructions for Treatment Patient Instructions Indication:Screening for HPV (human papillomavirus) (Renamed from Encounter for screening for human papillomavirus (HPV)) Start:11-Aug-2016 Instruction Type:Provider Instructions for Treatment Patient Instructions Indication:Dysuria Start:08-Nov-2013 Instruction Type:Provider Instructions for Treatment Patient Instructions Indication:Well woman exam with routine gynecological exam Start:23-Sep-2013 Instruction Type:Provider Instructions for Treatment Patient Instructions Indication:Low Back Pain Start:23-Nov-2012 Instruction Type:Provider Instructions for Treatment Patient Instructions Indication:Low Back Pain Start:08-Nov-2012 Instruction Type:Provider Instructions for Treatment Patient Instructions Indication:Osteopenia Start:21-Sep-2012 Instruction Type:Provider Instructions for Treatment [facility]; [facility] Work Phone: Instructions* Name Dates Details Patient Instructions Indication:Non-smoker Start:25-Feb-2022 Instruction Type:Provider Instructions for Treatment How to Access Health Informa tion Online using Patient Portal and [employer] Apps Indication:Non-smoker Start:25-Feb-2022 Instruction Type:Patient Education How to Access Health Informa tion Online using Patient Portal and [employer] Apps Indication:Non-smoker Start:18-Nov-2020 Instruction Type:Patient Education Patient Instructions Indication:Non-smoker Start:18-Nov-2020 Instruction Type:Provider Instructions for Treatment Patient Instructions Indication:Non-smoker Start:27-Jul-2020 Instruction Type:Provider Instructions for Treatment How to access health informa tion online Indication:Non-smoker Start:27-Jul-2020 Instruction Type:Patient Education How to access health informa tion online - Detail Indication:Non-smoker Start:27-Jul-2020 Instruction Type:Patient Education How to access health informa tion online Indication:BMI less than 19,adult Start:23-Apr-2020 Instruction Type:Patient Education How to access health informa tion online - Detail Indication:BMI less than 19,adult Start:23-Apr-2020 Instruction Type:Patient Education Patient Instructions Indication:BMI less than 19,adult Start:23-Apr-2020 Instruction Type:Provider Instructions for Treatment How to access health informa tion online Indication:Body mass index (BMI) of 19.0-19.9 in adult Start:19-Feb-2020 Instruction Type:Patient Education How to access health informa tion online - Detail Indication:Body mass index (BMI) of 19.0-19.9 in adult Start:19-Feb-2020 Instruction Type:Patient Education Patient Instructions Indication:Body mass index (BMI) of 19.0-19.9 in adult Start:19-Feb-2020 Instruction Type:Provider Instructions for Treatment How to access health informa tion online Indication:Non-smoker Start:05-Feb-2020 Instruction Type:Patient Education How to access health informa tion online - Detail Indication:Non-smoker Start:05-Feb-2020 Instruction Type:Patient Education Patient Instructions Indication:Non-smoker Start:05-Feb-2020 Instruction Type:Provider Instructions for Treatment How to access health informa tion online Indication:BMI less than 19,adult Start:31-Jan-2020 Instruction Type:Patient Education How to access health informa tion online - Detail Indication:BMI less than 19,adult Start:31-Jan-2020 Instruction Type:Patient Education Patient Instructions Indication:BMI less than 19,adult Start:31-Jan-2020 Instruction Type:Provider Instructions for Treatment Patient Instructions Indication:Constipation Start:30-Dec-2019 Instruction Type:Provider Instructions for Treatment How to access health informa tion online Indication:Non-smoker Start:28-Oct-2019 Instruction Type:Patient Education How to access health informa tion online - Detail Indication:Non-smoker Start:28-Oct-2019 Instruction Type:Patient Education Patient Instructions Indication:Non-smoker Start:28-Oct-2019 Instruction Type:Provider Instructions for Treatment How to access health informa tion online Indication:Non-smoker Start:27-Sep-2019 Instruction Type:Patient Education How to access health informa tion online - Detail Indication:Non-smoker Start:27-Sep-2019 Instruction Type:Patient Education Patient Instructions Indication:Non-smoker Start:27-Sep-2019 Instruction Type:Provider Instructions for Treatment How to access health informa tion online Indication:Body mass index (BMI) 20.0-20.9, adult Start:08-Feb-2019 Instruction Type:Patient Education How to access health informa tion online - Detail Indication:Body mass index (BMI) 20.0-20.9, adult Start:08-Feb-2019 Instruction Type:Patient Education Patient Instructions Indication:Body mass index (BMI) 20.0-20.9, adult Start:08-Feb-2019 Instruction Type:Provider Instructions for Treatment How to access health informa tion online Indication:Non-smoker Start:27-Dec-2018 Instruction Type:Patient Education How to access health informa tion online - Detail Indication:Non-smoker Start:27-Dec-2018 Instruction Type:Patient Education Patient Instructions Indication:Non-smoker Start:27-Dec-2018 Instruction Type:Provider Instructions for Treatment How to access health informa tion online Indication:Body mass index (BMI) 20.0-20.9, adult Start:10-Oct-2018 Instruction Type:Patient Education How to access health informa tion online - Detail Indication:Body mass index (BMI) 20.0-20.9, adult Start:10-Oct-2018 Instruction Type:Patient Education Patient Instructions Indication:Body mass index (BMI) 20.0-20.9, adult Start:10-Oct-2018 Instruction Type:Provider Instructions for Treatment How to access health informa tion online Indication:Body mass index (BMI) 20.0-20.9, adult Start:13-Mar-2018 Instruction Type:Patient Education How to access health informa tion online - Detail Indication:Body mass index (BMI) 20.0-20.9, adult Start:13-Mar-2018 Instruction Type:Patient Education Patient Instructions Indication:Body mass index (BMI) 20.0-20.9, adult Start:13-Mar-2018 Instruction Type:Provider Instructions for Treatment How to access health informa tion online Indication:Body mass index (BMI) 20.0-20.9, adult Start:16-Feb-2018 Instruction Type:Patient Education How to access health informa tion online - Detail Indication:Body mass index (BMI) 20.0-20.9, adult Start:16-Feb-2018 Instruction Type:Patient Education Patient Instructions Indication:Body mass index (BMI) 20.0-20.9, adult Start:16-Feb-2018 Instruction Type:Provider Instructions for Treatment How to access health informa tion online Indication:Body mass index (BMI) 20.0-20.9, adult Start:07-Aug-2017 Instruction Type:Patient Education How to access health informa tion online - Detail Indication:Body mass index (BMI) 20.0-20.9, adult Start:07-Aug-2017 Instruction Type:Patient Education Patient Instructions Indication:Headache, acute Start:07-Aug-2017 Instruction Type:Provider Instructions for Treatment How to access health informa tion online Indication:Body mass index (BMI) 20.0-20.9, adult Start:30-Jan-2017 Instruction Type:Patient Education How to access health informa tion online - Detail Indication:Body mass index (BMI) 20.0-20.9, adult Start:30-Jan-2017 Instruction Type:Patient Education Patient Instructions Indication:Body mass index (BMI) 20.0-20.9, adult Start:30-Jan-2017 Instruction Type:Provider Instructions for Treatment Patient Instructions Indication:Screening for HPV (human papillomavirus) (Renamed from Encounter for screening for human papillomavirus (HPV)) Start:11-Aug-2016 Instruction Type:Provider Instructions for Treatment Patient Instructions Indication:Dysuria Start:08-Nov-2013 Instruction Type:Provider Instructions for Treatment Patient Instructions Indication:Well woman exam with routine gynecological exam Start:23-Sep-2013 Instruction Type:Provider Instructions for Treatment Patient Instructions Indication:Low Back Pain Start:23-Nov-2012 Instruction Type:Provider Instructions for Treatment Patient Instructions Indication:Low Back Pain Start:08-Nov-2012 Instruction Type:Provider Instructions for Treatment Patient Instructions Indication:Osteopenia Start:21-Sep-2012 Instruction Type:Provider Instructions for Treatment [facility]; [facility] Work Phone: Instructions* Name Dates Details Patient Instructions Indication:Non-smoker Start:25-Feb-2022 Instruction Type:Provider Instructions for Treatment How to Access Health Informa tion Online using Patient Portal and [employer]rd [employer] Apps Indication:Non-smoker Start:25-Feb-2022 Instruction Type:Patient Education How to Access Health Informa tion Online using Patient Portal and [employer]rd [employer] Apps Indication:Non-smoker Start:18-Nov-2020 Instruction Type:Patient Education Patient Instructions Indication:Non-smoker Start:18-Nov-2020 Instruction Type:Provider Instructions for Treatment Patient Instructions Indication:Non-smoker Start:27-Jul-2020 Instruction Type:Provider Instructions for Treatment How to access health informa tion online Indication:Non-smoker Start:27-Jul-2020 Instruction Type:Patient Education How to access health informa tion online - Detail Indication:Non-smoker Start:27-Jul-2020 Instruction Type:Patient Education How to access health informa tion online Indication:BMI less than 19,adult Start:23-Apr-2020 Instruction Type:Patient Education How to access health informa tion online - Detail Indication:BMI less than 19,adult Start:23-Apr-2020 Instruction Type:Patient Education Patient Instructions Indication:BMI less than 19,adult Start:23-Apr-2020 Instruction Type:Provider Instructions for Treatment How to access health informa tion online Indication:Body mass index (BMI) of 19.0-19.9 in adult Start:19-Feb-2020 Instruction Type:Patient Education How to access health informa tion online - Detail Indication:Body mass index (BMI) of 19.0-19.9 in adult Start:19-Feb-2020 Instruction Type:Patient Education Patient Instructions Indication:Body mass index (BMI) of 19.0-19.9 in adult Start:19-Feb-2020 Instruction Type:Provider Instructions for Treatment How to access health informa tion online Indication:Non-smoker Start:05-Feb-2020 Instruction Type:Patient Education How to access health informa tion online - Detail Indication:Non-smoker Start:05-Feb-2020 Instruction Type:Patient Education Patient Instructions Indication:Non-smoker Start:05-Feb-2020 Instruction Type:Provider Instructions for Treatment How to access health informa tion online Indication:BMI less than 19,adult Start:31-Jan-2020 Instruction Type:Patient Education How to access health informa tion online - Detail Indication:BMI less than 19,adult Start:31-Jan-2020 Instruction Type:Patient Education Patient Instructions Indication:BMI less than 19,adult Start:31-Jan-2020 Instruction Type:Provider Instructions for Treatment Patient Instructions Indication:Constipation Start:30-Dec-2019 Instruction Type:Provider Instructions for Treatment How to access health informa tion online Indication:Non-smoker Start:28-Oct-2019 Instruction Type:Patient Education How to access health informa tion online - Detail Indication:Non-smoker Start:28-Oct-2019 Instruction Type:Patient Education Patient Instructions Indication:Non-smoker Start:28-Oct-2019 Instruction Type:Provider Instructions for Treatment How to access health informa tion online Indication:Non-smoker Start:27-Sep-2019 Instruction Type:Patient Education How to access health informa tion online - Detail Indication:Non-smoker Start:27-Sep-2019 Instruction Type:Patient Education Patient Instructions Indication:Non-smoker Start:27-Sep-2019 Instruction Type:Provider Instructions for Treatment How to access health informa tion online Indication:Body mass index (BMI) 20.0-20.9, adult Start:08-Feb-2019 Instruction Type:Patient Education How to access health informa tion online - Detail Indication:Body mass index (BMI) 20.0-20.9, adult Start:08-Feb-2019 Instruction Type:Patient Education Patient Instructions Indication:Body mass index (BMI) 20.0-20.9, adult Start:08-Feb-2019 Instruction Type:Provider Instructions for Treatment How to access health informa tion online Indication:Non-smoker Start:27-Dec-2018 Instruction Type:Patient Education How to access health informa tion online - Detail Indication:Non-smoker Start:27-Dec-2018 Instruction Type:Patient Education Patient Instructions Indication:Non-smoker Start:27-Dec-2018 Instruction Type:Provider Instructions for Treatment How to access health informa tion online Indication:Body mass index (BMI) 20.0-20.9, adult Start:10-Oct-2018 Instruction Type:Patient Education How to access health informa tion online - Detail Indication:Body mass index (BMI) 20.0-20.9, adult Start:10-Oct-2018 Instruction Type:Patient Education Patient Instructions Indication:Body mass index (BMI) 20.0-20.9, adult Start:10-Oct-2018 Instruction Type:Provider Instructions for Treatment How to access health informa tion online Indication:Body mass index (BMI) 20.0-20.9, adult Start:13-Mar-2018 Instruction Type:Patient Education How to access health informa tion online - Detail Indication:Body mass index (BMI) 20.0-20.9, adult Start:13-Mar-2018 Instruction Type:Patient Education Patient Instructions Indication:Body mass index (BMI) 20.0-20.9, adult Start:13-Mar-2018 Instruction Type:Provider Instructions for Treatment How to access health informa tion online Indication:Body mass index (BMI) 20.0-20.9, adult Start:16-Feb-2018 Instruction Type:Patient Education How to access health informa tion online - Detail Indication:Body mass index (BMI) 20.0-20.9, adult Start:16-Feb-2018 Instruction Type:Patient Education Patient Instructions Indication:Body mass index (BMI) 20.0-20.9, adult Start:16-Feb-2018 Instruction Type:Provider Instructions for Treatment How to access health informa tion online Indication:Body mass index (BMI) 20.0-20.9, adult Start:07-Aug-2017 Instruction Type:Patient Education How to access health informa tion online - Detail Indication:Body mass index (BMI) 20.0-20.9, adult Start:07-Aug-2017 Instruction Type:Patient Education Patient Instructions Indication:Headache, acute Start:07-Aug-2017 Instruction Type:Provider Instructions for Treatment How to access health informa tion online Indication:Body mass index (BMI) 20.0-20.9, adult Start:30-Jan-2017 Instruction Type:Patient Education How to access health informa tion online - Detail Indication:Body mass index (BMI) 20.0-20.9, adult Start:30-Jan-2017 Instruction Type:Patient Education Patient Instructions Indication:Body mass index (BMI) 20.0-20.9, adult Start:30-Jan-2017 Instruction Type:Provider Instructions for Treatment Patient Instructions Indication:Screening for HPV (human papillomavirus) (Renamed from Encounter for screening for human papillomavirus (HPV)) Start:11-Aug-2016 Instruction Type:Provider Instructions for Treatment Patient Instructions Indication:Dysuria Start:08-Nov-2013 Instruction Type:Provider Instructions for Treatment Patient Instructions Indication:Well woman exam with routine gynecological exam Start:23-Sep-2013 Instruction Type:Provider Instructions for Treatment Patient Instructions Indication:Low Back Pain Start:23-Nov-2012 Instruction Type:Provider Instructions for Treatment Patient Instructions Indication:Low Back Pain Start:08-Nov-2012 Instruction Type:Provider Instructions for Treatment Patient Instructions Indication:Osteopenia Start:21-Sep-2012 Instruction Type:Provider Instructions for Treatment [facility]; [facility] Work Phone: [phone]* Name Dates Details Patient Instructions Indication:Non-smoker Start:30-Nov-2022 Instruction Type:Provider Instructions for Treatment How to Access Health Informa tion Online using Patient Portal and [employer]rd [employer] Apps Indication:Non-smoker Start:30-Nov-2022 Instruction Type:Patient Education Patient Instructions Indication:Non-smoker Start:25-Feb-2022 Instruction Type:Provider Instructions for Treatment How to Access Health Informa tion Online using Patient Portal and [employer]rd [employer] Apps Indication:Non-smoker Start:25-Feb-2022 Instruction Type:Patient Education How to Access Health Informa tion Online using Patient Portal and [employer]rd [employer] Apps Indication:Non-smoker Start:18-Nov-2020 Instruction Type:Patient Education Patient Instructions Indication:Non-smoker Start:18-Nov-2020 Instruction Type:Provider Instructions for Treatment Patient Instructions Indication:Non-smoker Start:27-Jul-2020 Instruction Type:Provider Instructions for Treatment How to access health informa tion online Indication:Non-smoker Start:27-Jul-2020 Instruction Type:Patient Education How to access health informa tion online - Detail Indication:Non-smoker Start:27-Jul-2020 Instruction Type:Patient Education How to access health informa tion online Indication:BMI less than 19,adult Start:23-Apr-2020 Instruction Type:Patient Education How to access health informa tion online - Detail Indication:BMI less than 19,adult Start:23-Apr-2020 Instruction Type:Patient Education Patient Instructions Indication:BMI less than 19,adult Start:23-Apr-2020 Instruction Type:Provider Instructions for Treatment How to access health informa tion online Indication:Body mass index (BMI) of 19.0-19.9 in adult Start:19-Feb-2020 Instruction Type:Patient Education How to access health informa tion online - Detail Indication:Body mass index (BMI) of 19.0-19.9 in adult Start:19-Feb-2020 Instruction Type:Patient Education Patient Instructions Indication:Body mass index (BMI) of 19.0-19.9 in adult Start:19-Feb-2020 Instruction Type:Provider Instructions for Treatment How to access health informa tion online Indication:Non-smoker Start:05-Feb-2020 Instruction Type:Patient Education How to access health informa tion online - Detail Indication:Non-smoker Start:05-Feb-2020 Instruction Type:Patient Education Patient Instructions Indication:Non-smoker Start:05-Feb-2020 Instruction Type:Provider Instructions for Treatment How to access health informa tion online Indication:BMI less than 19,adult Start:31-Jan-2020 Instruction Type:Patient Education How to access health informa tion online - Detail Indication:BMI less than 19,adult Start:31-Jan-2020 Instruction Type:Patient Education Patient Instructions Indication:BMI less than 19,adult Start:31-Jan-2020 Instruction Type:Provider Instructions for Treatment Patient Instructions Indication:Constipation Start:30-Dec-2019 Instruction Type:Provider Instructions for Treatment How to access health informa tion online Indication:Non-smoker Start:28-Oct-2019 Instruction Type:Patient Education How to access health informa tion online - Detail Indication:Non-smoker Start:28-Oct-2019 Instruction Type:Patient Education Patient Instructions Indication:Non-smoker Start:28-Oct-2019 Instruction Type:Provider Instructions for Treatment How to access health informa tion online Indication:Non-smoker Start:27-Sep-2019 Instruction Type:Patient Education How to access health informa tion online - Detail Indication:Non-smoker Start:27-Sep-2019 Instruction Type:Patient Education Patient Instructions Indication:Non-smoker Start:27-Sep-2019 Instruction Type:Provider Instructions for Treatment How to access health informa tion online Indication:Body mass index (BMI) 20.0-20.9, adult Start:08-Feb-2019 Instruction Type:Patient Education How to access health informa tion online - Detail Indication:Body mass index (BMI) 20.0-20.9, adult Start:08-Feb-2019 Instruction Type:Patient Education Patient Instructions Indication:Body mass index (BMI) 20.0-20.9, adult Start:08-Feb-2019 Instruction Type:Provider Instructions for Treatment How to access health informa tion online Indication:Non-smoker Start:27-Dec-2018 Instruction Type:Patient Education How to access health informa tion online - Detail Indication:Non-smoker Start:27-Dec-2018 Instruction Type:Patient Education Patient Instructions Indication:Non-smoker Start:27-Dec-2018 Instruction Type:Provider Instructions for Treatment How to access health informa tion online Indication:Body mass index (BMI) 20.0-20.9, adult Start:10-Oct-2018 Instruction Type:Patient Education How to access health informa tion online - Detail Indication:Body mass index (BMI) 20.0-20.9, adult Start:10-Oct-2018 Instruction Type:Patient Education Patient Instructions Indication:Body mass index (BMI) 20.0-20.9, adult Start:10-Oct-2018 Instruction Type:Provider Instructions for Treatment How to access health informa tion online Indication:Body mass index (BMI) 20.0-20.9, adult Start:13-Mar-2018 Instruction Type:Patient Education How to access health informa tion online - Detail Indication:Body mass index (BMI) 20.0-20.9, adult Start:13-Mar-2018 Instruction Type:Patient Education Patient Instructions Indication:Body mass index (BMI) 20.0-20.9, adult Start:13-Mar-2018 Instruction Type:Provider Instructions for Treatment How to access health informa tion online Indication:Body mass index (BMI) 20.0-20.9, adult Start:16-Feb-2018 Instruction Type:Patient Education How to access health informa tion online - Detail Indication:Body mass index (BMI) 20.0-20.9, adult Start:16-Feb-2018 Instruction Type:Patient Education Patient Instructions Indication:Body mass index (BMI) 20.0-20.9, adult Start:16-Feb-2018 Instruction Type:Provider Instructions for Treatment How to access health informa tion online Indication:Body mass index (BMI) 20.0-20.9, adult Start:07-Aug-2017 Instruction Type:Patient Education How to access health informa tion online - Detail Indication:Body mass index (BMI) 20.0-20.9, adult Start:07-Aug-2017 Instruction Type:Patient Education Patient Instructions Indication:Headache, acute Start:07-Aug-2017 Instruction Type:Provider Instructions for Treatment How to access health informa tion online Indication:Body mass index (BMI) 20.0-20.9, adult Start:30-Jan-2017 Instruction Type:Patient Education How to access health informa tion online - Detail Indication:Body mass index (BMI) 20.0-20.9, adult Start:30-Jan-2017 Instruction Type:Patient Education Patient Instructions Indication:Body mass index (BMI) 20.0-20.9, adult Start:30-Jan-2017 Instruction Type:Provider Instructions for Treatment Patient Instructions Indication:Screening for HPV (human papillomavirus) (Renamed from Encounter for screening for human papillomavirus (HPV)) Start:11-Aug-2016 Instruction Type:Provider Instructions for Treatment Patient Instructions Indication:Dysuria Start:08-Nov-2013 Instruction Type:Provider Instructions for Treatment Patient Instructions Indication:Well woman exam with routine gynecological exam Start:23-Sep-2013 Instruction Type:Provider Instructions for Treatment Patient Instructions Indication:Low Back Pain Start:23-Nov-2012 Instruction Type:Provider Instructions for Treatment Patient Instructions Indication:Low Back Pain Start:08-Nov-2012 Instruction Type:Provider Instructions for Treatment Patient Instructions Indication:Osteopenia Start:21-Sep-2012 Instruction Type:Provider Instructions for Treatment [facility]; [facility] Work Phone: Instructions* Name Dates Details Patient Instructions Indication:Non-smoker Start:30-Nov-2022 Instruction Type:Provider Instructions for Treatment How to Access Health Informa tion Online using Patient Portal and [employer]rd [employer] Apps Indication:Non-smoker Start:30-Nov-2022 Instruction Type:Patient Education Patient Instructions Indication:Non-smoker Start:25-Feb-2022 Instruction Type:Provider Instructions for Treatment How to Access Health Informa tion Online using Patient Portal and [employer]rd [employer] Apps Indication:Non-smoker Start:25-Feb-2022 Instruction Type:Patient Education How to Access Health Informa tion Online using Patient Portal and [employer]rd [employer] Apps Indication:Non-smoker Start:18-Nov-2020 Instruction Type:Patient Education Patient Instructions Indication:Non-smoker Start:18-Nov-2020 Instruction Type:Provider Instructions for Treatment Patient Instructions Indication:Non-smoker Start:27-Jul-2020 Instruction Type:Provider Instructions for Treatment How to access health informa tion online Indication:Non-smoker Start:27-Jul-2020 Instruction Type:Patient Education How to access health informa tion online - Detail Indication:Non-smoker Start:27-Jul-2020 Instruction Type:Patient Education How to access health informa tion online Indication:BMI less than 19,adult Start:23-Apr-2020 Instruction Type:Patient Education How to access health informa tion online - Detail Indication:BMI less than 19,adult Start:23-Apr-2020 Instruction Type:Patient Education Patient Instructions Indication:BMI less than 19,adult Start:23-Apr-2020 Instruction Type:Provider Instructions for Treatment How to access health informa tion online Indication:Body mass index (BMI) of 19.0-19.9 in adult Start:19-Feb-2020 Instruction Type:Patient Education How to access health informa tion online - Detail Indication:Body mass index (BMI) of 19.0-19.9 in adult Start:19-Feb-2020 Instruction Type:Patient Education Patient Instructions Indication:Body mass index (BMI) of 19.0-19.9 in adult Start:19-Feb-2020 Instruction Type:Provider Instructions for Treatment How to access health informa tion online Indication:Non-smoker Start:05-Feb-2020 Instruction Type:Patient Education How to access health informa tion online - Detail Indication:Non-smoker Start:05-Feb-2020 Instruction Type:Patient Education Patient Instructions Indication:Non-smoker Start:05-Feb-2020 Instruction Type:Provider Instructions for Treatment How to access health informa tion online Indication:BMI less than 19,adult Start:31-Jan-2020 Instruction Type:Patient Education How to access health informa tion online - Detail Indication:BMI less than 19,adult Start:31-Jan-2020 Instruction Type:Patient Education Patient Instructions Indication:BMI less than 19,adult Start:31-Jan-2020 Instruction Type:Provider Instructions for Treatment Patient Instructions Indication:Constipation Start:30-Dec-2019 Instruction Type:Provider Instructions for Treatment How to access health informa tion online Indication:Non-smoker Start:28-Oct-2019 Instruction Type:Patient Education How to access health informa tion online - Detail Indication:Non-smoker Start:28-Oct-2019 Instruction Type:Patient Education Patient Instructions Indication:Non-smoker Start:28-Oct-2019 Instruction Type:Provider Instructions for Treatment How to access health informa tion online Indication:Non-smoker Start:27-Sep-2019 Instruction Type:Patient Education How to access health informa tion online - Detail Indication:Non-smoker Start:27-Sep-2019 Instruction Type:Patient Education Patient Instructions Indication:Non-smoker Start:27-Sep-2019 Instruction Type:Provider Instructions for Treatment How to access health informa tion online Indication:Body mass index (BMI) 20.0-20.9, adult Start:08-Feb-2019 Instruction Type:Patient Education How to access health informa tion online - Detail Indication:Body mass index (BMI) 20.0-20.9, adult Start:08-Feb-2019 Instruction Type:Patient Education Patient Instructions Indication:Body mass index (BMI) 20.0-20.9, adult Start:08-Feb-2019 Instruction Type:Provider Instructions for Treatment How to access health informa tion online Indication:Non-smoker Start:27-Dec-2018 Instruction Type:Patient Education How to access health informa tion online - Detail Indication:Non-smoker Start:27-Dec-2018 Instruction Type:Patient Education Patient Instructions Indication:Non-smoker Start:27-Dec-2018 Instruction Type:Provider Instructions for Treatment How to access health informa tion online Indication:Body mass index (BMI) 20.0-20.9, adult Start:10-Oct-2018 Instruction Type:Patient Education How to access health informa tion online - Detail Indication:Body mass index (BMI) 20.0-20.9, adult Start:10-Oct-2018 Instruction Type:Patient Education Patient Instructions Indication:Body mass index (BMI) 20.0-20.9, adult Start:10-Oct-2018 Instruction Type:Provider Instructions for Treatment How to access health informa tion online Indication:Body mass index (BMI) 20.0-20.9, adult Start:13-Mar-2018 Instruction Type:Patient Education How to access health informa tion online - Detail Indication:Body mass index (BMI) 20.0-20.9, adult Start:13-Mar-2018 Instruction Type:Patient Education Patient Instructions Indication:Body mass index (BMI) 20.0-20.9, adult Start:13-Mar-2018 Instruction Type:Provider Instructions for Treatment How to access health informa tion online Indication:Body mass index (BMI) 20.0-20.9, adult Start:16-Feb-2018 Instruction Type:Patient Education How to access health informa tion online - Detail Indication:Body mass index (BMI) 20.0-20.9, adult Start:16-Feb-2018 Instruction Type:Patient Education Patient Instructions Indication:Body mass index (BMI) 20.0-20.9, adult Start:16-Feb-2018 Instruction Type:Provider Instructions for Treatment How to access health informa tion online Indication:Body mass index (BMI) 20.0-20.9, adult Start:07-Aug-2017 Instruction Type:Patient Education How to access health informa tion online - Detail Indication:Body mass index (BMI) 20.0-20.9, adult Start:07-Aug-2017 Instruction Type:Patient Education Patient Instructions Indication:Headache, acute Start:07-Aug-2017 Instruction Type:Provider Instructions for Treatment How to access health informa tion online Indication:Body mass index (BMI) 20.0-20.9, adult Start:30-Jan-2017 Instruction Type:Patient Education How to access health informa tion online - Detail Indication:Body mass index (BMI) 20.0-20.9, adult Start:30-Jan-2017 Instruction Type:Patient Education Patient Instructions Indication:Body mass index (BMI) 20.0-20.9, adult Start:30-Jan-2017 Instruction Type:Provider Instructions for Treatment Patient Instructions Indication:Screening for HPV (human papillomavirus) (Renamed from Encounter for screening for human papillomavirus (HPV)) Start:11-Aug-2016 Instruction Type:Provider Instructions for Treatment Patient Instructions Indication:Dysuria Start:08-Nov-2013 Instruction Type:Provider Instructions for Treatment Patient Instructions Indication:Well woman exam with routine gynecological exam Start:23-Sep-2013 Instruction Type:Provider Instructions for Treatment Patient Instructions Indication:Low Back Pain Start:23-Nov-2012 Instruction Type:Provider Instructions for Treatment Patient Instructions Indication:Low Back Pain Start:08-Nov-2012 Instruction Type:Provider Instructions for Treatment Patient Instructions Indication:Osteopenia Start:21-Sep-2012 Instruction Type:Provider Instructions for Treatment [facility]; [facility] Work Phone: Instructions* Name Dates Details Patient Instructions Indication:Non-smoker Start:22-Dec-2022 Instruction Type:Provider Instructions for Treatment How to Access Health Informa tion Online using Patient Portal and [employer]rd [employer] Apps Indication:Non-smoker Start:22-Dec-2022 Instruction Type:Patient Education Patient Instructions Indication:Non-smoker Start:30-Nov-2022 Instruction Type:Provider Instructions for Treatment How to Access Health Informa tion Online using Patient Portal and [employer]rd [employer] Apps Indication:Non-smoker Start:30-Nov-2022 Instruction Type:Patient Education Patient Instructions Indication:Non-smoker Start:25-Feb-2022 Instruction Type:Provider Instructions for Treatment How to Access Health Informa tion Online using Patient Portal and [employer]rd [employer] Apps Indication:Non-smoker Start:25-Feb-2022 Instruction Type:Patient Education How to Access Health Informa tion Online using Patient Portal and [employer]rd [employer] Apps Indication:Non-smoker Start:18-Nov-2020 Instruction Type:Patient Education Patient Instructions Indication:Non-smoker Start:18-Nov-2020 Instruction Type:Provider Instructions for Treatment Patient Instructions Indication:Non-smoker Start:27-Jul-2020 Instruction Type:Provider Instructions for Treatment How to access health informa tion online Indication:Non-smoker Start:27-Jul-2020 Instruction Type:Patient Education How to access health informa tion online - Detail Indication:Non-smoker Start:27-Jul-2020 Instruction Type:Patient Education How to access health informa tion online Indication:BMI less than 19,adult Start:23-Apr-2020 Instruction Type:Patient Education How to access health informa tion online - Detail Indication:BMI less than 19,adult Start:23-Apr-2020 Instruction Type:Patient Education Patient Instructions Indication:BMI less than 19,adult Start:23-Apr-2020 Instruction Type:Provider Instructions for Treatment How to access health informa tion online Indication:Body mass index (BMI) of 19.0-19.9 in adult Start:19-Feb-2020 Instruction Type:Patient Education How to access health informa tion online - Detail Indication:Body mass index (BMI) of 19.0-19.9 in adult Start:19-Feb-2020 Instruction Type:Patient Education Patient Instructions Indication:Body mass index (BMI) of 19.0-19.9 in adult Start:19-Feb-2020 Instruction Type:Provider Instructions for Treatment How to access health informa tion online Indication:Non-smoker Start:05-Feb-2020 Instruction Type:Patient Education How to access health informa tion online - Detail Indication:Non-smoker Start:05-Feb-2020 Instruction Type:Patient Education Patient Instructions Indication:Non-smoker Start:05-Feb-2020 Instruction Type:Provider Instructions for Treatment How to access health informa tion online Indication:BMI less than 19,adult Start:31-Jan-2020 Instruction Type:Patient Education How to access health informa tion online - Detail Indication:BMI less than 19,adult Start:31-Jan-2020 Instruction Type:Patient Education Patient Instructions Indication:BMI less than 19,adult Start:31-Jan-2020 Instruction Type:Provider Instructions for Treatment Patient Instructions Indication:Constipation Start:30-Dec-2019 Instruction Type:Provider Instructions for Treatment How to access health informa tion online Indication:Non-smoker Start:28-Oct-2019 Instruction Type:Patient Education How to access health informa tion online - Detail Indication:Non-smoker Start:28-Oct-2019 Instruction Type:Patient Education Patient Instructions Indication:Non-smoker Start:28-Oct-2019 Instruction Type:Provider Instructions for Treatment How to access health informa tion online Indication:Non-smoker Start:27-Sep-2019 Instruction Type:Patient Education How to access health informa tion online - Detail Indication:Non-smoker Start:27-Sep-2019 Instruction Type:Patient Education Patient Instructions Indication:Non-smoker Start:27-Sep-2019 Instruction Type:Provider Instructions for Treatment How to access health informa tion online Indication:Body mass index (BMI) 20.0-20.9, adult Start:08-Feb-2019 Instruction Type:Patient Education How to access health informa tion online - Detail Indication:Body mass index (BMI) 20.0-20.9, adult Start:08-Feb-2019 Instruction Type:Patient Education Patient Instructions Indication:Body mass index (BMI) 20.0-20.9, adult Start:08-Feb-2019 Instruction Type:Provider Instructions for Treatment How to access health informa tion online Indication:Non-smoker Start:27-Dec-2018 Instruction Type:Patient Education How to access health informa tion online - Detail Indication:Non-smoker Start:27-Dec-2018 Instruction Type:Patient Education Patient Instructions Indication:Non-smoker Start:27-Dec-2018 Instruction Type:Provider Instructions for Treatment How to access health informa tion online Indication:Body mass index (BMI) 20.0-20.9, adult Start:10-Oct-2018 Instruction Type:Patient Education How to access health informa tion online - Detail Indication:Body mass index (BMI) 20.0-20.9, adult Start:10-Oct-2018 Instruction Type:Patient Education Patient Instructions Indication:Body mass index (BMI) 20.0-20.9, adult Start:10-Oct-2018 Instruction Type:Provider Instructions for Treatment How to access health informa tion online Indication:Body mass index (BMI) 20.0-20.9, adult Start:13-Mar-2018 Instruction Type:Patient Education How to access health informa tion online - Detail Indication:Body mass index (BMI) 20.0-20.9, adult Start:13-Mar-2018 Instruction Type:Patient Education Patient Instructions Indication:Body mass index (BMI) 20.0-20.9, adult Start:13-Mar-2018 Instruction Type:Provider Instructions for Treatment How to access health informa tion online Indication:Body mass index (BMI) 20.0-20.9, adult Start:16-Feb-2018 Instruction Type:Patient Education How to access health informa tion online - Detail Indication:Body mass index (BMI) 20.0-20.9, adult Start:16-Feb-2018 Instruction Type:Patient Education Patient Instructions Indication:Body mass index (BMI) 20.0-20.9, adult Start:16-Feb-2018 Instruction Type:Provider Instructions for Treatment How to access health informa tion online Indication:Body mass index (BMI) 20.0-20.9, adult Start:07-Aug-2017 Instruction Type:Patient Education How to access health informa tion online - Detail Indication:Body mass index (BMI) 20.0-20.9, adult Start:07-Aug-2017 Instruction Type:Patient Education Patient Instructions Indication:Headache, acute Start:07-Aug-2017 Instruction Type:Provider Instructions for Treatment How to access health informa tion online Indication:Body mass index (BMI) 20.0-20.9, adult Start:30-Jan-2017 Instruction Type:Patient Education How to access health informa tion online - Detail Indication:Body mass index (BMI) 20.0-20.9, adult Start:30-Jan-2017 Instruction Type:Patient Education Patient Instructions Indication:Body mass index (BMI) 20.0-20.9, adult Start:30-Jan-2017 Instruction Type:Provider Instructions for Treatment Patient Instructions Indication:Screening for HPV (human papillomavirus) (Renamed from Encounter for screening for human papillomavirus (HPV)) Start:11-Aug-2016 Instruction Type:Provider Instructions for Treatment Patient Instructions Indication:Dysuria Start:08-Nov-2013 Instruction Type:Provider Instructions for Treatment Patient Instructions Indication:Well woman exam with routine gynecological exam Start:23-Sep-2013 Instruction Type:Provider Instructions for Treatment Patient Instructions Indication:Low Back Pain Start:23-Nov-2012 Instruction Type:Provider Instructions for Treatment Patient Instructions Indication:Low Back Pain Start:08-Nov-2012 Instruction Type:Provider Instructions for Treatment Patient Instructions Indication:Osteopenia Start:21-Sep-2012 Instruction Type:Provider Instructions for Treatment [facility]; [facility] Work Phone: Instructions* Name Dates Details Patient Instructions Indication:Non-smoker Start:22-Dec-2022 Instruction Type:Provider Instructions for Treatment How to Access Health Informa tion Online using Patient Portal and [employer]rd [employer] Apps Indication:Non-smoker Start:22-Dec-2022 Instruction Type:Patient Education Patient Instructions Indication:Non-smoker Start:30-Nov-2022 Instruction Type:Provider Instructions for Treatment How to Access Health Informa tion Online using Patient Portal and [employer]rd [employer] Apps Indication:Non-smoker Start:30-Nov-2022 Instruction Type:Patient Education Patient Instructions Indication:Non-smoker Start:25-Feb-2022 Instruction Type:Provider Instructions for Treatment How to Access Health Informa tion Online using Patient Portal and [employer]rd [employer] Apps Indication:Non-smoker Start:25-Feb-2022 Instruction Type:Patient Education How to Access Health Informa tion Online using Patient Portal and [employer]rd [employer] Apps Indication:Non-smoker Start:18-Nov-2020 Instruction Type:Patient Education Patient Instructions Indication:Non-smoker Start:18-Nov-2020 Instruction Type:Provider Instructions for Treatment Patient Instructions Indication:Non-smoker Start:27-Jul-2020 Instruction Type:Provider Instructions for Treatment How to access health informa tion online Indication:Non-smoker Start:27-Jul-2020 Instruction Type:Patient Education How to access health informa tion online - Detail Indication:Non-smoker Start:27-Jul-2020 Instruction Type:Patient Education How to access health informa tion online Indication:BMI less than 19,adult Start:23-Apr-2020 Instruction Type:Patient Education How to access health informa tion online - Detail Indication:BMI less than 19,adult Start:23-Apr-2020 Instruction Type:Patient Education Patient Instructions Indication:BMI less than 19,adult Start:23-Apr-2020 Instruction Type:Provider Instructions for Treatment How to access health informa tion online Indication:Body mass index (BMI) of 19.0-19.9 in adult Start:19-Feb-2020 Instruction Type:Patient Education How to access health informa tion online - Detail Indication:Body mass index (BMI) of 19.0-19.9 in adult Start:19-Feb-2020 Instruction Type:Patient Education Patient Instructions Indication:Body mass index (BMI) of 19.0-19.9 in adult Start:19-Feb-2020 Instruction Type:Provider Instructions for Treatment How to access health informa tion online Indication:Non-smoker Start:05-Feb-2020 Instruction Type:Patient Education How to access health informa tion online - Detail Indication:Non-smoker Start:05-Feb-2020 Instruction Type:Patient Education Patient Instructions Indication:Non-smoker Start:05-Feb-2020 Instruction Type:Provider Instructions for Treatment How to access health informa tion online Indication:BMI less than 19,adult Start:31-Jan-2020 Instruction Type:Patient Education How to access health informa tion online - Detail Indication:BMI less than 19,adult Start:31-Jan-2020 Instruction Type:Patient Education Patient Instructions Indication:BMI less than 19,adult Start:31-Jan-2020 Instruction Type:Provider Instructions for Treatment Patient Instructions Indication:Constipation Start:30-Dec-2019 Instruction Type:Provider Instructions for Treatment How to access health informa tion online Indication:Non-smoker Start:28-Oct-2019 Instruction Type:Patient Education How to access health informa tion online - Detail Indication:Non-smoker Start:28-Oct-2019 Instruction Type:Patient Education Patient Instructions Indication:Non-smoker Start:28-Oct-2019 Instruction Type:Provider Instructions for Treatment How to access health informa tion online Indication:Non-smoker Start:27-Sep-2019 Instruction Type:Patient Education How to access health informa tion online - Detail Indication:Non-smoker Start:27-Sep-2019 Instruction Type:Patient Education Patient Instructions Indication:Non-smoker Start:27-Sep-2019 Instruction Type:Provider Instructions for Treatment How to access health informa tion online Indication:Body mass index (BMI) 20.0-20.9, adult Start:08-Feb-2019 Instruction Type:Patient Education How to access health informa tion online - Detail Indication:Body mass index (BMI) 20.0-20.9, adult Start:08-Feb-2019 Instruction Type:Patient Education Patient Instructions Indication:Body mass index (BMI) 20.0-20.9, adult Start:08-Feb-2019 Instruction Type:Provider Instructions for Treatment How to access health informa tion online Indication:Non-smoker Start:27-Dec-2018 Instruction Type:Patient Education How to access health informa tion online - Detail Indication:Non-smoker Start:27-Dec-2018 Instruction Type:Patient Education Patient Instructions Indication:Non-smoker Start:27-Dec-2018 Instruction Type:Provider Instructions for Treatment How to access health informa tion online Indication:Body mass index (BMI) 20.0-20.9, adult Start:10-Oct-2018 Instruction Type:Patient Education How to access health informa tion online - Detail Indication:Body mass index (BMI) 20.0-20.9, adult Start:10-Oct-2018 Instruction Type:Patient Education Patient Instructions Indication:Body mass index (BMI) 20.0-20.9, adult Start:10-Oct-2018 Instruction Type:Provider Instructions for Treatment How to access health informa tion online Indication:Body mass index (BMI) 20.0-20.9, adult Start:13-Mar-2018 Instruction Type:Patient Education How to access health informa tion online - Detail Indication:Body mass index (BMI) 20.0-20.9, adult Start:13-Mar-2018 Instruction Type:Patient Education Patient Instructions Indication:Body mass index (BMI) 20.0-20.9, adult Start:13-Mar-2018 Instruction Type:Provider Instructions for Treatment How to access health informa tion online Indication:Body mass index (BMI) 20.0-20.9, adult Start:16-Feb-2018 Instruction Type:Patient Education How to access health informa tion online - Detail Indication:Body mass index (BMI) 20.0-20.9, adult Start:16-Feb-2018 Instruction Type:Patient Education Patient Instructions Indication:Body mass index (BMI) 20.0-20.9, adult Start:16-Feb-2018 Instruction Type:Provider Instructions for Treatment How to access health informa tion online Indication:Body mass index (BMI) 20.0-20.9, adult Start:07-Aug-2017 Instruction Type:Patient Education How to access health informa tion online - Detail Indication:Body mass index (BMI) 20.0-20.9, adult Start:07-Aug-2017 Instruction Type:Patient Education Patient Instructions Indication:Headache, acute Start:07-Aug-2017 Instruction Type:Provider Instructions for Treatment How to access health informa tion online Indication:Body mass index (BMI) 20.0-20.9, adult Start:30-Jan-2017 Instruction Type:Patient Education How to access health informa tion online - Detail Indication:Body mass index (BMI) 20.0-20.9, adult Start:30-Jan-2017 Instruction Type:Patient Education Patient Instructions Indication:Body mass index (BMI) 20.0-20.9, adult Start:30-Jan-2017 Instruction Type:Provider Instructions for Treatment Patient Instructions Indication:Screening for HPV (human papillomavirus) (Renamed from Encounter for screening for human papillomavirus (HPV)) Start:11-Aug-2016 Instruction Type:Provider Instructions for Treatment Patient Instructions Indication:Dysuria Start:08-Nov-2013 Instruction Type:Provider Instructions for Treatment Patient Instructions Indication:Well woman exam with routine gynecological exam Start:23-Sep-2013 Instruction Type:Provider Instructions for Treatment Patient Instructions Indication:Low Back Pain Start:23-Nov-2012 Instruction Type:Provider Instructions for Treatment Patient Instructions Indication:Low Back Pain Start:08-Nov-2012 Instruction Type:Provider Instructions for Treatment Patient Instructions Indication:Osteopenia Start:21-Sep-2012 Instruction Type:Provider Instructions for Treatment [facility]; [facility] Work Phone: Instructions* Name Dates Details Patient Instructions Indication:Hyperglycemia Start:28-Apr-2023 Instruction Type:Provider Instructions for Treatment How to Access Health Informa tion Online using Patient Portal and [employer]rd [employer] Apps Indication:Hyperglycemia Start:28-Apr-2023 Instruction Type:Patient Education Patient Instructions Indication:Non-smoker Start:22-Dec-2022 Instruction Type:Provider Instructions for Treatment How to Access Health Informa tion Online using Patient Portal and [employer]rd [employer] Apps Indication:Non-smoker Start:22-Dec-2022 Instruction Type:Patient Education Patient Instructions Indication:Non-smoker Start:30-Nov-2022 Instruction Type:Provider Instructions for Treatment How to Access Health Informa tion Online using Patient Portal and [employer]rd [employer] Apps Indication:Non-smoker Start:30-Nov-2022 Instruction Type:Patient Education Patient Instructions Indication:Non-smoker Start:25-Feb-2022 Instruction Type:Provider Instructions for Treatment How to Access Health Informa tion Online using Patient Portal and [employer]rd [employer] Apps Indication:Non-smoker Start:25-Feb-2022 Instruction Type:Patient Education How to Access Health Informa tion Online using Patient Portal and [employer]rd [employer] Apps Indication:Non-smoker Start:18-Nov-2020 Instruction Type:Patient Education Patient Instructions Indication:Non-smoker Start:18-Nov-2020 Instruction Type:Provider Instructions for Treatment Patient Instructions Indication:Non-smoker Start:27-Jul-2020 Instruction Type:Provider Instructions for Treatment How to access health informa tion online Indication:Non-smoker Start:27-Jul-2020 Instruction Type:Patient Education How to access health informa tion online - Detail Indication:Non-smoker Start:27-Jul-2020 Instruction Type:Patient Education How to access health informa tion online Indication:BMI less than 19,adult Start:23-Apr-2020 Instruction Type:Patient Education How to access health informa tion online - Detail Indication:BMI less than 19,adult Start:23-Apr-2020 Instruction Type:Patient Education Patient Instructions Indication:BMI less than 19,adult Start:23-Apr-2020 Instruction Type:Provider Instructions for Treatment How to access health informa tion online Indication:Body mass index (BMI) of 19.0-19.9 in adult Start:19-Feb-2020 Instruction Type:Patient Education How to access health informa tion online - Detail Indication:Body mass index (BMI) of 19.0-19.9 in adult Start:19-Feb-2020 Instruction Type:Patient Education Patient Instructions Indication:Body mass index (BMI) of 19.0-19.9 in adult Start:19-Feb-2020 Instruction Type:Provider Instructions for Treatment How to access health informa tion online Indication:Non-smoker Start:05-Feb-2020 Instruction Type:Patient Education How to access health informa tion online - Detail Indication:Non-smoker Start:05-Feb-2020 Instruction Type:Patient Education Patient Instructions Indication:Non-smoker Start:05-Feb-2020 Instruction Type:Provider Instructions for Treatment How to access health informa tion online Indication:BMI less than 19,adult Start:31-Jan-2020 Instruction Type:Patient Education How to access health informa tion online - Detail Indication:BMI less than 19,adult Start:31-Jan-2020 Instruction Type:Patient Education Patient Instructions Indication:BMI less than 19,adult Start:31-Jan-2020 Instruction Type:Provider Instructions for Treatment Patient Instructions Indication:Constipation Start:30-Dec-2019 Instruction Type:Provider Instructions for Treatment How to access health informa tion online Indication:Non-smoker Start:28-Oct-2019 Instruction Type:Patient Education How to access health informa tion online - Detail Indication:Non-smoker Start:28-Oct-2019 Instruction Type:Patient Education Patient Instructions Indication:Non-smoker Start:28-Oct-2019 Instruction Type:Provider Instructions for Treatment How to access health informa tion online Indication:Non-smoker Start:27-Sep-2019 Instruction Type:Patient Education How to access health informa tion online - Detail Indication:Non-smoker Start:27-Sep-2019 Instruction Type:Patient Education Patient Instructions Indication:Non-smoker Start:27-Sep-2019 Instruction Type:Provider Instructions for Treatment How to access health informa tion online Indication:Body mass index (BMI) 20.0-20.9, adult Start:08-Feb-2019 Instruction Type:Patient Education How to access health informa tion online - Detail Indication:Body mass index (BMI) 20.0-20.9, adult Start:08-Feb-2019 Instruction Type:Patient Education Patient Instructions Indication:Body mass index (BMI) 20.0-20.9, adult Start:08-Feb-2019 Instruction Type:Provider Instructions for Treatment How to access health informa tion online Indication:Non-smoker Start:27-Dec-2018 Instruction Type:Patient Education How to access health informa tion online - Detail Indication:Non-smoker Start:27-Dec-2018 Instruction Type:Patient Education Patient Instructions Indication:Non-smoker Start:27-Dec-2018 Instruction Type:Provider Instructions for Treatment How to access health informa tion online Indication:Body mass index (BMI) 20.0-20.9, adult Start:10-Oct-2018 Instruction Type:Patient Education How to access health informa tion online - Detail Indication:Body mass index (BMI) 20.0-20.9, adult Start:10-Oct-2018 Instruction Type:Patient Education Patient Instructions Indication:Body mass index (BMI) 20.0-20.9, adult Start:10-Oct-2018 Instruction Type:Provider Instructions for Treatment How to access health informa tion online Indication:Body mass index (BMI) 20.0-20.9, adult Start:13-Mar-2018 Instruction Type:Patient Education How to access health informa tion online - Detail Indication:Body mass index (BMI) 20.0-20.9, adult Start:13-Mar-2018 Instruction Type:Patient Education Patient Instructions Indication:Body mass index (BMI) 20.0-20.9, adult Start:13-Mar-2018 Instruction Type:Provider Instructions for Treatment How to access health informa tion online Indication:Body mass index (BMI) 20.0-20.9, adult Start:16-Feb-2018 Instruction Type:Patient Education How to access health informa tion online - Detail Indication:Body mass index (BMI) 20.0-20.9, adult Start:16-Feb-2018 Instruction Type:Patient Education Patient Instructions Indication:Body mass index (BMI) 20.0-20.9, adult Start:16-Feb-2018 Instruction Type:Provider Instructions for Treatment How to access health informa tion online Indication:Body mass index (BMI) 20.0-20.9, adult Start:07-Aug-2017 Instruction Type:Patient Education How to access health informa tion online - Detail Indication:Body mass index (BMI) 20.0-20.9, adult Start:07-Aug-2017 Instruction Type:Patient Education Patient Instructions Indication:Headache, acute Start:07-Aug-2017 Instruction Type:Provider Instructions for Treatment How to access health informa tion online Indication:Body mass index (BMI) 20.0-20.9, adult Start:30-Jan-2017 Instruction Type:Patient Education How to access health informa tion online - Detail Indication:Body mass index (BMI) 20.0-20.9, adult Start:30-Jan-2017 Instruction Type:Patient Education Patient Instructions Indication:Body mass index (BMI) 20.0-20.9, adult Start:30-Jan-2017 Instruction Type:Provider Instructions for Treatment Patient Instructions Indication:Screening for HPV (human papillomavirus) (Renamed from Encounter for screening for human papillomavirus (HPV)) Start:11-Aug-2016 Instruction Type:Provider Instructions for Treatment Patient Instructions Indication:Dysuria Start:08-Nov-2013 Instruction Type:Provider Instructions for Treatment Patient Instructions Indication:Well woman exam with routine gynecological exam Start:23-Sep-2013 Instruction Type:Provider Instructions for Treatment Patient Instructions Indication:Low Back Pain Start:23-Nov-2012 Instruction Type:Provider Instructions for Treatment Patient Instructions Indication:Low Back Pain Start:08-Nov-2012 Instruction Type:Provider Instructions for Treatment Patient Instructions Indication:Osteopenia Start:21-Sep-2012 Instruction Type:Provider Instructions for Treatment [facility]; [facility] Work Phone: Instructions* Name Dates Details Patient Instructions Indication:Hyperglycemia Start:28-Apr-2023 Instruction Type:Provider Instructions for Treatment How to Access Health Informa tion Online using Patient Portal and [employer]rd [employer] Apps Indication:Hyperglycemia Start:28-Apr-2023 Instruction Type:Patient Education Patient Instructions Indication:Non-smoker Start:22-Dec-2022 Instruction Type:Provider Instructions for Treatment How to Access Health Informa tion Online using Patient Portal and [employer]rd [employer] Apps Indication:Non-smoker Start:22-Dec-2022 Instruction Type:Patient Education Patient Instructions Indication:Non-smoker Start:30-Nov-2022 Instruction Type:Provider Instructions for Treatment How to Access Health Informa tion Online using Patient Portal and [employer]rd [employer] Apps Indication:Non-smoker Start:30-Nov-2022 Instruction Type:Patient Education Patient Instructions Indication:Non-smoker Start:25-Feb-2022 Instruction Type:Provider Instructions for Treatment How to Access Health Informa tion Online using Patient Portal and [employer]rd [employer] Apps Indication:Non-smoker Start:25-Feb-2022 Instruction Type:Patient Education How to Access Health Informa tion Online using Patient Portal and [employer]rd [employer] Apps Indication:Non-smoker Start:18-Nov-2020 Instruction Type:Patient Education Patient Instructions Indication:Non-smoker Start:18-Nov-2020 Instruction Type:Provider Instructions for Treatment Patient Instructions Indication:Non-smoker Start:27-Jul-2020 Instruction Type:Provider Instructions for Treatment How to access health informa tion online Indication:Non-smoker Start:27-Jul-2020 Instruction Type:Patient Education How to access health informa tion online - Detail Indication:Non-smoker Start:27-Jul-2020 Instruction Type:Patient Education How to access health informa tion online Indication:BMI less than 19,adult Start:23-Apr-2020 Instruction Type:Patient Education How to access health informa tion online - Detail Indication:BMI less than 19,adult Start:23-Apr-2020 Instruction Type:Patient Education Patient Instructions Indication:BMI less than 19,adult Start:23-Apr-2020 Instruction Type:Provider Instructions for Treatment How to access health informa tion online Indication:Body mass index (BMI) of 19.0-19.9 in adult Start:19-Feb-2020 Instruction Type:Patient Education How to access health informa tion online - Detail Indication:Body mass index (BMI) of 19.0-19.9 in adult Start:19-Feb-2020 Instruction Type:Patient Education Patient Instructions Indication:Body mass index (BMI) of 19.0-19.9 in adult Start:19-Feb-2020 Instruction Type:Provider Instructions for Treatment How to access health informa tion online Indication:Non-smoker Start:05-Feb-2020 Instruction Type:Patient Education How to access health informa tion online - Detail Indication:Non-smoker Start:05-Feb-2020 Instruction Type:Patient Education Patient Instructions Indication:Non-smoker Start:05-Feb-2020 Instruction Type:Provider Instructions for Treatment How to access health informa tion online Indication:BMI less than 19,adult Start:31-Jan-2020 Instruction Type:Patient Education How to access health informa tion online - Detail Indication:BMI less than 19,adult Start:31-Jan-2020 Instruction Type:Patient Education Patient Instructions Indication:BMI less than 19,adult Start:31-Jan-2020 Instruction Type:Provider Instructions for Treatment Patient Instructions Indication:Constipation Start:30-Dec-2019 Instruction Type:Provider Instructions for Treatment How to access health informa tion online Indication:Non-smoker Start:28-Oct-2019 Instruction Type:Patient Education How to access health informa tion online - Detail Indication:Non-smoker Start:28-Oct-2019 Instruction Type:Patient Education Patient Instructions Indication:Non-smoker Start:28-Oct-2019 Instruction Type:Provider Instructions for Treatment How to access health informa tion online Indication:Non-smoker Start:27-Sep-2019 Instruction Type:Patient Education How to access health informa tion online - Detail Indication:Non-smoker Start:27-Sep-2019 Instruction Type:Patient Education Patient Instructions Indication:Non-smoker Start:27-Sep-2019 Instruction Type:Provider Instructions for Treatment How to access health informa tion online Indication:Body mass index (BMI) 20.0-20.9, adult Start:08-Feb-2019 Instruction Type:Patient Education How to access health informa tion online - Detail Indication:Body mass index (BMI) 20.0-20.9, adult Start:08-Feb-2019 Instruction Type:Patient Education Patient Instructions Indication:Body mass index (BMI) 20.0-20.9, adult Start:08-Feb-2019 Instruction Type:Provider Instructions for Treatment How to access health informa tion online Indication:Non-smoker Start:27-Dec-2018 Instruction Type:Patient Education How to access health informa tion online - Detail Indication:Non-smoker Start:27-Dec-2018 Instruction Type:Patient Education Patient Instructions Indication:Non-smoker Start:27-Dec-2018 Instruction Type:Provider Instructions for Treatment How to access health informa tion online Indication:Body mass index (BMI) 20.0-20.9, adult Start:10-Oct-2018 Instruction Type:Patient Education How to access health informa tion online - Detail Indication:Body mass index (BMI) 20.0-20.9, adult Start:10-Oct-2018 Instruction Type:Patient Education Patient Instructions Indication:Body mass index (BMI) 20.0-20.9, adult Start:10-Oct-2018 Instruction Type:Provider Instructions for Treatment How to access health informa tion online Indication:Body mass index (BMI) 20.0-20.9, adult Start:13-Mar-2018 Instruction Type:Patient Education How to access health informa tion online - Detail Indication:Body mass index (BMI) 20.0-20.9, adult Start:13-Mar-2018 Instruction Type:Patient Education Patient Instructions Indication:Body mass index (BMI) 20.0-20.9, adult Start:13-Mar-2018 Instruction Type:Provider Instructions for Treatment How to access health informa tion online Indication:Body mass index (BMI) 20.0-20.9, adult Start:16-Feb-2018 Instruction Type:Patient Education How to access health informa tion online - Detail Indication:Body mass index (BMI) 20.0-20.9, adult Start:16-Feb-2018 Instruction Type:Patient Education Patient Instructions Indication:Body mass index (BMI) 20.0-20.9, adult Start:16-Feb-2018 Instruction Type:Provider Instructions for Treatment How to access health informa tion online Indication:Body mass index (BMI) 20.0-20.9, adult Start:07-Aug-2017 Instruction Type:Patient Education How to access health informa tion online - Detail Indication:Body mass index (BMI) 20.0-20.9, adult Start:07-Aug-2017 Instruction Type:Patient Education Patient Instructions Indication:Headache, acute Start:07-Aug-2017 Instruction Type:Provider Instructions for Treatment How to access health informa tion online Indication:Body mass index (BMI) 20.0-20.9, adult Start:30-Jan-2017 Instruction Type:Patient Education How to access health informa tion online - Detail Indication:Body mass index (BMI) 20.0-20.9, adult Start:30-Jan-2017 Instruction Type:Patient Education Patient Instructions Indication:Body mass index (BMI) 20.0-20.9, adult Start:30-Jan-2017 Instruction Type:Provider Instructions for Treatment Patient Instructions Indication:Screening for HPV (human papillomavirus) (Renamed from Encounter for screening for human papillomavirus (HPV)) Start:11-Aug-2016 Instruction Type:Provider Instructions for Treatment Patient Instructions Indication:Dysuria Start:08-Nov-2013 Instruction Type:Provider Instructions for Treatment Patient Instructions Indication:Well woman exam with routine gynecological exam Start:23-Sep-2013 Instruction Type:Provider Instructions for Treatment Patient Instructions Indication:Low Back Pain Start:23-Nov-2012 Instruction Type:Provider Instructions for Treatment Patient Instructions Indication:Low Back Pain Start:08-Nov-2012 Instruction Type:Provider Instructions for Treatment Patient Instructions Indication:Osteopenia Start:21-Sep-2012 Instruction Type:Provider Instructions for Treatment [facility]; [facility] Work Phone: Instructions* Name Dates Details Patient Instructions Indication:Hyperglycemia Start:28-Apr-2023 Instruction Type:Provider Instructions for Treatment How to Access Health Informa tion Online using Patient Portal and [employer]rd [employer] Apps Indication:Hyperglycemia Start:28-Apr-2023 Instruction Type:Patient Education Patient Instructions Indication:Non-smoker Start:22-Dec-2022 Instruction Type:Provider Instructions for Treatment How to Access Health Informa tion Online using Patient Portal and [employer]rd [employer] Apps Indication:Non-smoker Start:22-Dec-2022 Instruction Type:Patient Education Patient Instructions Indication:Non-smoker Start:30-Nov-2022 Instruction Type:Provider Instructions for Treatment How to Access Health Informa tion Online using Patient Portal and [employer]rd [employer] Apps Indication:Non-smoker Start:30-Nov-2022 Instruction Type:Patient Education Patient Instructions Indication:Non-smoker Start:25-Feb-2022 Instruction Type:Provider Instructions for Treatment How to Access Health Informa tion Online using Patient Portal and [employer]rd [employer] Apps Indication:Non-smoker Start:25-Feb-2022 Instruction Type:Patient Education How to Access Health Informa tion Online using Patient Portal and [employer]rd [employer] Apps Indication:Non-smoker Start:18-Nov-2020 Instruction Type:Patient Education Patient Instructions Indication:Non-smoker Start:18-Nov-2020 Instruction Type:Provider Instructions for Treatment Patient Instructions Indication:Non-smoker Start:27-Jul-2020 Instruction Type:Provider Instructions for Treatment How to access health informa tion online Indication:Non-smoker Start:27-Jul-2020 Instruction Type:Patient Education How to access health informa tion online - Detail Indication:Non-smoker Start:27-Jul-2020 Instruction Type:Patient Education How to access health informa tion online Indication:BMI less than 19,adult Start:23-Apr-2020 Instruction Type:Patient Education How to access health informa tion online - Detail Indication:BMI less than 19,adult Start:23-Apr-2020 Instruction Type:Patient Education Patient Instructions Indication:BMI less than 19,adult Start:23-Apr-2020 Instruction Type:Provider Instructions for Treatment How to access health informa tion online Indication:Body mass index (BMI) of 19.0-19.9 in adult Start:19-Feb-2020 Instruction Type:Patient Education How to access health informa tion online - Detail Indication:Body mass index (BMI) of 19.0-19.9 in adult Start:19-Feb-2020 Instruction Type:Patient Education Patient Instructions Indication:Body mass index (BMI) of 19.0-19.9 in adult Start:19-Feb-2020 Instruction Type:Provider Instructions for Treatment How to access health informa tion online Indication:Non-smoker Start:05-Feb-2020 Instruction Type:Patient Education How to access health informa tion online - Detail Indication:Non-smoker Start:05-Feb-2020 Instruction Type:Patient Education Patient Instructions Indication:Non-smoker Start:05-Feb-2020 Instruction Type:Provider Instructions for Treatment How to access health informa tion online Indication:BMI less than 19,adult Start:31-Jan-2020 Instruction Type:Patient Education How to access health informa tion online - Detail Indication:BMI less than 19,adult Start:31-Jan-2020 Instruction Type:Patient Education Patient Instructions Indication:BMI less than 19,adult Start:31-Jan-2020 Instruction Type:Provider Instructions for Treatment Patient Instructions Indication:Constipation Start:30-Dec-2019 Instruction Type:Provider Instructions for Treatment How to access health informa tion online Indication:Non-smoker Start:28-Oct-2019 Instruction Type:Patient Education How to access health informa tion online - Detail Indication:Non-smoker Start:28-Oct-2019 Instruction Type:Patient Education Patient Instructions Indication:Non-smoker Start:28-Oct-2019 Instruction Type:Provider Instructions for Treatment How to access health informa tion online Indication:Non-smoker Start:27-Sep-2019 Instruction Type:Patient Education How to access health informa tion online - Detail Indication:Non-smoker Start:27-Sep-2019 Instruction Type:Patient Education Patient Instructions Indication:Non-smoker Start:27-Sep-2019 Instruction Type:Provider Instructions for Treatment How to access health informa tion online Indication:Body mass index (BMI) 20.0-20.9, adult Start:08-Feb-2019 Instruction Type:Patient Education How to access health informa tion online - Detail Indication:Body mass index (BMI) 20.0-20.9, adult Start:08-Feb-2019 Instruction Type:Patient Education Patient Instructions Indication:Body mass index (BMI) 20.0-20.9, adult Start:08-Feb-2019 Instruction Type:Provider Instructions for Treatment How to access health informa tion online Indication:Non-smoker Start:27-Dec-2018 Instruction Type:Patient Education How to access health informa tion online - Detail Indication:Non-smoker Start:27-Dec-2018 Instruction Type:Patient Education Patient Instructions Indication:Non-smoker Start:27-Dec-2018 Instruction Type:Provider Instructions for Treatment How to access health informa tion online Indication:Body mass index (BMI) 20.0-20.9, adult Start:10-Oct-2018 Instruction Type:Patient Education How to access health informa tion online - Detail Indication:Body mass index (BMI) 20.0-20.9, adult Start:10-Oct-2018 Instruction Type:Patient Education Patient Instructions Indication:Body mass index (BMI) 20.0-20.9, adult Start:10-Oct-2018 Instruction Type:Provider Instructions for Treatment How to access health informa tion online Indication:Body mass index (BMI) 20.0-20.9, adult Start:13-Mar-2018 Instruction Type:Patient Education How to access health informa tion online - Detail Indication:Body mass index (BMI) 20.0-20.9, adult Start:13-Mar-2018 Instruction Type:Patient Education Patient Instructions Indication:Body mass index (BMI) 20.0-20.9, adult Start:13-Mar-2018 Instruction Type:Provider Instructions for Treatment How to access health informa tion online Indication:Body mass index (BMI) 20.0-20.9, adult Start:16-Feb-2018 Instruction Type:Patient Education How to access health informa tion online - Detail Indication:Body mass index (BMI) 20.0-20.9, adult Start:16-Feb-2018 Instruction Type:Patient Education Patient Instructions Indication:Body mass index (BMI) 20.0-20.9, adult Start:16-Feb-2018 Instruction Type:Provider Instructions for Treatment How to access health informa tion online Indication:Body mass index (BMI) 20.0-20.9, adult Start:07-Aug-2017 Instruction Type:Patient Education How to access health informa tion online - Detail Indication:Body mass index (BMI) 20.0-20.9, adult Start:07-Aug-2017 Instruction Type:Patient Education Patient Instructions Indication:Headache, acute Start:07-Aug-2017 Instruction Type:Provider Instructions for Treatment How to access health informa tion online Indication:Body mass index (BMI) 20.0-20.9, adult Start:30-Jan-2017 Instruction Type:Patient Education How to access health informa tion online - Detail Indication:Body mass index (BMI) 20.0-20.9, adult Start:30-Jan-2017 Instruction Type:Patient Education Patient Instructions Indication:Body mass index (BMI) 20.0-20.9, adult Start:30-Jan-2017 Instruction Type:Provider Instructions for Treatment Patient Instructions Indication:Screening for HPV (human papillomavirus) (Renamed from Encounter for screening for human papillomavirus (HPV)) Start:11-Aug-2016 Instruction Type:Provider Instructions for Treatment Patient Instructions Indication:Dysuria Start:08-Nov-2013 Instruction Type:Provider Instructions for Treatment Patient Instructions Indication:Well woman exam with routine gynecological exam Start:23-Sep-2013 Instruction Type:Provider Instructions for Treatment Patient Instructions Indication:Low Back Pain Start:23-Nov-2012 Instruction Type:Provider Instructions for Treatment Patient Instructions Indication:Low Back Pain Start:08-Nov-2012 Instruction Type:Provider Instructions for Treatment Patient Instructions Indication:Osteopenia Start:21-Sep-2012 Instruction Type:Provider Instructions for Treatment [facility]; [facility] Work Phone: Instructions* Name Dates Details Patient Instructions Indication:Hyperglycemia Start:28-Apr-2023 Instruction Type:Provider Instructions for Treatment How to Access Health Informa tion Online using Patient Portal and [employer]rd [employer] Apps Indication:Hyperglycemia Start:28-Apr-2023 Instruction Type:Patient Education Patient Instructions Indication:Non-smoker Start:22-Dec-2022 Instruction Type:Provider Instructions for Treatment How to Access Health Informa tion Online using Patient Portal and [employer]rd [employer] Apps Indication:Non-smoker Start:22-Dec-2022 Instruction Type:Patient Education Patient Instructions Indication:Non-smoker Start:30-Nov-2022 Instruction Type:Provider Instructions for Treatment How to Access Health Informa tion Online using Patient Portal and [employer]rd [employer] Apps Indication:Non-smoker Start:30-Nov-2022 Instruction Type:Patient Education Patient Instructions Indication:Non-smoker Start:25-Feb-2022 Instruction Type:Provider Instructions for Treatment How to Access Health Informa tion Online using Patient Portal and [employer]rd [employer] Apps Indication:Non-smoker Start:25-Feb-2022 Instruction Type:Patient Education How to Access Health Informa tion Online using Patient Portal and [employer]rd [employer] Apps Indication:Non-smoker Start:18-Nov-2020 Instruction Type:Patient Education Patient Instructions Indication:Non-smoker Start:18-Nov-2020 Instruction Type:Provider Instructions for Treatment Patient Instructions Indication:Non-smoker Start:27-Jul-2020 Instruction Type:Provider Instructions for Treatment How to access health informa tion online Indication:Non-smoker Start:27-Jul-2020 Instruction Type:Patient Education How to access health informa tion online - Detail Indication:Non-smoker Start:27-Jul-2020 Instruction Type:Patient Education How to access health informa tion online Indication:BMI less than 19,adult Start:23-Apr-2020 Instruction Type:Patient Education How to access health informa tion online - Detail Indication:BMI less than 19,adult Start:23-Apr-2020 Instruction Type:Patient Education Patient Instructions Indication:BMI less than 19,adult Start:23-Apr-2020 Instruction Type:Provider Instructions for Treatment How to access health informa tion online Indication:Body mass index (BMI) of 19.0-19.9 in adult Start:19-Feb-2020 Instruction Type:Patient Education How to access health informa tion online - Detail Indication:Body mass index (BMI) of 19.0-19.9 in adult Start:19-Feb-2020 Instruction Type:Patient Education Patient Instructions Indication:Body mass index (BMI) of 19.0-19.9 in adult Start:19-Feb-2020 Instruction Type:Provider Instructions for Treatment How to access health informa tion online Indication:Non-smoker Start:05-Feb-2020 Instruction Type:Patient Education How to access health informa tion online - Detail Indication:Non-smoker Start:05-Feb-2020 Instruction Type:Patient Education Patient Instructions Indication:Non-smoker Start:05-Feb-2020 Instruction Type:Provider Instructions for Treatment How to access health informa tion online Indication:BMI less than 19,adult Start:31-Jan-2020 Instruction Type:Patient Education How to access health informa tion online - Detail Indication:BMI less than 19,adult Start:31-Jan-2020 Instruction Type:Patient Education Patient Instructions Indication:BMI less than 19,adult Start:31-Jan-2020 Instruction Type:Provider Instructions for Treatment Patient Instructions Indication:Constipation Start:30-Dec-2019 Instruction Type:Provider Instructions for Treatment How to access health informa tion online Indication:Non-smoker Start:28-Oct-2019 Instruction Type:Patient Education How to access health informa tion online - Detail Indication:Non-smoker Start:28-Oct-2019 Instruction Type:Patient Education Patient Instructions Indication:Non-smoker Start:28-Oct-2019 Instruction Type:Provider Instructions for Treatment How to access health informa tion online Indication:Non-smoker Start:27-Sep-2019 Instruction Type:Patient Education How to access health informa tion online - Detail Indication:Non-smoker Start:27-Sep-2019 Instruction Type:Patient Education Patient Instructions Indication:Non-smoker Start:27-Sep-2019 Instruction Type:Provider Instructions for Treatment How to access health informa tion online Indication:Body mass index (BMI) 20.0-20.9, adult Start:08-Feb-2019 Instruction Type:Patient Education How to access health informa tion online - Detail Indication:Body mass index (BMI) 20.0-20.9, adult Start:08-Feb-2019 Instruction Type:Patient Education Patient Instructions Indication:Body mass index (BMI) 20.0-20.9, adult Start:08-Feb-2019 Instruction Type:Provider Instructions for Treatment How to access health informa tion online Indication:Non-smoker Start:27-Dec-2018 Instruction Type:Patient Education How to access health informa tion online - Detail Indication:Non-smoker Start:27-Dec-2018 Instruction Type:Patient Education Patient Instructions Indication:Non-smoker Start:27-Dec-2018 Instruction Type:Provider Instructions for Treatment How to access health informa tion online Indication:Body mass index (BMI) 20.0-20.9, adult Start:10-Oct-2018 Instruction Type:Patient Education How to access health informa tion online - Detail Indication:Body mass index (BMI) 20.0-20.9, adult Start:10-Oct-2018 Instruction Type:Patient Education Patient Instructions Indication:Body mass index (BMI) 20.0-20.9, adult Start:10-Oct-2018 Instruction Type:Provider Instructions for Treatment How to access health informa tion online Indication:Body mass index (BMI) 20.0-20.9, adult Start:13-Mar-2018 Instruction Type:Patient Education How to access health informa tion online - Detail Indication:Body mass index (BMI) 20.0-20.9, adult Start:13-Mar-2018 Instruction Type:Patient Education Patient Instructions Indication:Body mass index (BMI) 20.0-20.9, adult Start:13-Mar-2018 Instruction Type:Provider Instructions for Treatment How to access health informa tion online Indication:Body mass index (BMI) 20.0-20.9, adult Start:16-Feb-2018 Instruction Type:Patient Education How to access health informa tion online - Detail Indication:Body mass index (BMI) 20.0-20.9, adult Start:16-Feb-2018 Instruction Type:Patient Education Patient Instructions Indication:Body mass index (BMI) 20.0-20.9, adult Start:16-Feb-2018 Instruction Type:Provider Instructions for Treatment How to access health informa tion online Indication:Body mass index (BMI) 20.0-20.9, adult Start:07-Aug-2017 Instruction Type:Patient Education How to access health informa tion online - Detail Indication:Body mass index (BMI) 20.0-20.9, adult Start:07-Aug-2017 Instruction Type:Patient Education Patient Instructions Indication:Headache, acute Start:07-Aug-2017 Instruction Type:Provider Instructions for Treatment How to access health informa tion online Indication:Body mass index (BMI) 20.0-20.9, adult Start:30-Jan-2017 Instruction Type:Patient Education How to access health informa tion online - Detail Indication:Body mass index (BMI) 20.0-20.9, adult Start:30-Jan-2017 Instruction Type:Patient Education Patient Instructions Indication:Body mass index (BMI) 20.0-20.9, adult Start:30-Jan-2017 Instruction Type:Provider Instructions for Treatment Patient Instructions Indication:Screening for HPV (human papillomavirus) (Renamed from Encounter for screening for human papillomavirus (HPV)) Start:11-Aug-2016 Instruction Type:Provider Instructions for Treatment Patient Instructions Indication:Dysuria Start:08-Nov-2013 Instruction Type:Provider Instructions for Treatment Patient Instructions Indication:Well woman exam with routine gynecological exam Start:23-Sep-2013 Instruction Type:Provider Instructions for Treatment Patient Instructions Indication:Low Back Pain Start:23-Nov-2012 Instruction Type:Provider Instructions for Treatment Patient Instructions Indication:Low Back Pain Start:08-Nov-2012 Instruction Type:Provider Instructions for Treatment Patient Instructions Indication:Osteopenia Start:21-Sep-2012 Instruction Type:Provider Instructions for Treatment [facility] Work Phone: Instructions* Name Dates Details Patient Instructions Indication:Hyperglycemia Start:28-Apr-2023 Instruction Type:Provider Instructions for Treatment How to Access Health Informa tion Online using Patient Portal and [employer]rd [employer] Apps Indication:Hyperglycemia Start:28-Apr-2023 Instruction Type:Patient Education Patient Instructions Indication:Non-smoker Start:22-Dec-2022 Instruction Type:Provider Instructions for Treatment How to Access Health Informa tion Online using Patient Portal and [employer]rd [employer] Apps Indication:Non-smoker Start:22-Dec-2022 Instruction Type:Patient Education Patient Instructions Indication:Non-smoker Start:30-Nov-2022 Instruction Type:Provider Instructions for Treatment How to Access Health Informa tion Online using Patient Portal and [employer]rd [employer] Apps Indication:Non-smoker Start:30-Nov-2022 Instruction Type:Patient Education Patient Instructions Indication:Non-smoker Start:25-Feb-2022 Instruction Type:Provider Instructions for Treatment How to Access Health Informa tion Online using Patient Portal and [employer]rd [employer] Apps Indication:Non-smoker Start:25-Feb-2022 Instruction Type:Patient Education How to Access Health Informa tion Online using Patient Portal and [employer]rd [employer] Apps Indication:Non-smoker Start:18-Nov-2020 Instruction Type:Patient Education Patient Instructions Indication:Non-smoker Start:18-Nov-2020 Instruction Type:Provider Instructions for Treatment Patient Instructions Indication:Non-smoker Start:27-Jul-2020 Instruction Type:Provider Instructions for Treatment How to access health informa tion online Indication:Non-smoker Start:27-Jul-2020 Instruction Type:Patient Education How to access health informa tion online - Detail Indication:Non-smoker Start:27-Jul-2020 Instruction Type:Patient Education How to access health informa tion online Indication:BMI less than 19,adult Start:23-Apr-2020 Instruction Type:Patient Education How to access health informa tion online - Detail Indication:BMI less than 19,adult Start:23-Apr-2020 Instruction Type:Patient Education Patient Instructions Indication:BMI less than 19,adult Start:23-Apr-2020 Instruction Type:Provider Instructions for Treatment How to access health informa tion online Indication:Body mass index (BMI) of 19.0-19.9 in adult Start:19-Feb-2020 Instruction Type:Patient Education How to access health informa tion online - Detail Indication:Body mass index (BMI) of 19.0-19.9 in adult Start:19-Feb-2020 Instruction Type:Patient Education Patient Instructions Indication:Body mass index (BMI) of 19.0-19.9 in adult Start:19-Feb-2020 Instruction Type:Provider Instructions for Treatment How to access health informa tion online Indication:Non-smoker Start:05-Feb-2020 Instruction Type:Patient Education How to access health informa tion online - Detail Indication:Non-smoker Start:05-Feb-2020 Instruction Type:Patient Education Patient Instructions Indication:Non-smoker Start:05-Feb-2020 Instruction Type:Provider Instructions for Treatment How to access health informa tion online Indication:BMI less than 19,adult Start:31-Jan-2020 Instruction Type:Patient Education How to access health informa tion online - Detail Indication:BMI less than 19,adult Start:31-Jan-2020 Instruction Type:Patient Education Patient Instructions Indication:BMI less than 19,adult Start:31-Jan-2020 Instruction Type:Provider Instructions for Treatment Patient Instructions Indication:Constipation Start:30-Dec-2019 Instruction Type:Provider Instructions for Treatment How to access health informa tion online Indication:Non-smoker Start:28-Oct-2019 Instruction Type:Patient Education How to access health informa tion online - Detail Indication:Non-smoker Start:28-Oct-2019 Instruction Type:Patient Education Patient Instructions Indication:Non-smoker Start:28-Oct-2019 Instruction Type:Provider Instructions for Treatment How to access health informa tion online Indication:Non-smoker Start:27-Sep-2019 Instruction Type:Patient Education How to access health informa tion online - Detail Indication:Non-smoker Start:27-Sep-2019 Instruction Type:Patient Education Patient Instructions Indication:Non-smoker Start:27-Sep-2019 Instruction Type:Provider Instructions for Treatment How to access health informa tion online Indication:Body mass index (BMI) 20.0-20.9, adult Start:08-Feb-2019 Instruction Type:Patient Education How to access health informa tion online - Detail Indication:Body mass index (BMI) 20.0-20.9, adult Start:08-Feb-2019 Instruction Type:Patient Education Patient Instructions Indication:Body mass index (BMI) 20.0-20.9, adult Start:08-Feb-2019 Instruction Type:Provider Instructions for Treatment How to access health informa tion online Indication:Non-smoker Start:27-Dec-2018 Instruction Type:Patient Education How to access health informa tion online - Detail Indication:Non-smoker Start:27-Dec-2018 Instruction Type:Patient Education Patient Instructions Indication:Non-smoker Start:27-Dec-2018 Instruction Type:Provider Instructions for Treatment How to access health informa tion online Indication:Body mass index (BMI) 20.0-20.9, adult Start:10-Oct-2018 Instruction Type:Patient Education How to access health informa tion online - Detail Indication:Body mass index (BMI) 20.0-20.9, adult Start:10-Oct-2018 Instruction Type:Patient Education Patient Instructions Indication:Body mass index (BMI) 20.0-20.9, adult Start:10-Oct-2018 Instruction Type:Provider Instructions for Treatment How to access health informa tion online Indication:Body mass index (BMI) 20.0-20.9, adult Start:13-Mar-2018 Instruction Type:Patient Education How to access health informa tion online - Detail Indication:Body mass index (BMI) 20.0-20.9, adult Start:13-Mar-2018 Instruction Type:Patient Education Patient Instructions Indication:Body mass index (BMI) 20.0-20.9, adult Start:13-Mar-2018 Instruction Type:Provider Instructions for Treatment How to access health informa tion online Indication:Body mass index (BMI) 20.0-20.9, adult Start:16-Feb-2018 Instruction Type:Patient Education How to access health informa tion online - Detail Indication:Body mass index (BMI) 20.0-20.9, adult Start:16-Feb-2018 Instruction Type:Patient Education Patient Instructions Indication:Body mass index (BMI) 20.0-20.9, adult Start:16-Feb-2018 Instruction Type:Provider Instructions for Treatment How to access health informa tion online Indication:Body mass index (BMI) 20.0-20.9, adult Start:07-Aug-2017 Instruction Type:Patient Education How to access health informa tion online - Detail Indication:Body mass index (BMI) 20.0-20.9, adult Start:07-Aug-2017 Instruction Type:Patient Education Patient Instructions Indication:Headache, acute Start:07-Aug-2017 Instruction Type:Provider Instructions for Treatment How to access health informa tion online Indication:Body mass index (BMI) 20.0-20.9, adult Start:30-Jan-2017 Instruction Type:Patient Education How to access health informa tion online - Detail Indication:Body mass index (BMI) 20.0-20.9, adult Start:30-Jan-2017 Instruction Type:Patient Education Patient Instructions Indication:Body mass index (BMI) 20.0-20.9, adult Start:30-Jan-2017 Instruction Type:Provider Instructions for Treatment Patient Instructions Indication:Screening for HPV (human papillomavirus) (Renamed from Encounter for screening for human papillomavirus (HPV)) Start:11-Aug-2016 Instruction Type:Provider Instructions for Treatment Patient Instructions Indication:Dysuria Start:08-Nov-2013 Instruction Type:Provider Instructions for Treatment Patient Instructions Indication:Well woman exam with routine gynecological exam Start:23-Sep-2013 Instruction Type:Provider Instructions for Treatment Patient Instructions Indication:Low Back Pain Start:23-Nov-2012 Instruction Type:Provider Instructions for Treatment Patient Instructions Indication:Low Back Pain Start:08-Nov-2012 Instruction Type:Provider Instructions for Treatment Patient Instructions Indication:Osteopenia Start:21-Sep-2012 Instruction Type:Provider Instructions for Treatment [facility] Work Phone: Instructions* Name Dates Details Patient Instructions Indication:Hyperglycemia Start:28-Apr-2023 Instruction Type:Provider Instructions for Treatment How to Access Health Informa tion Online using Patient Portal and [employer]rd [employer] Apps Indication:Hyperglycemia Start:28-Apr-2023 Instruction Type:Patient Education Patient Instructions Indication:Non-smoker Start:22-Dec-2022 Instruction Type:Provider Instructions for Treatment How to Access Health Informa tion Online using Patient Portal and [employer]rd [employer] Apps Indication:Non-smoker Start:22-Dec-2022 Instruction Type:Patient Education Patient Instructions Indication:Non-smoker Start:30-Nov-2022 Instruction Type:Provider Instructions for Treatment How to Access Health Informa tion Online using Patient Portal and [employer]rd [employer] Apps Indication:Non-smoker Start:30-Nov-2022 Instruction Type:Patient Education Patient Instructions Indication:Non-smoker Start:25-Feb-2022 Instruction Type:Provider Instructions for Treatment How to Access Health Informa tion Online using Patient Portal and [employer]rd [employer] Apps Indication:Non-smoker Start:25-Feb-2022 Instruction Type:Patient Education How to Access Health Informa tion Online using Patient Portal and [employer]rd [employer] Apps Indication:Non-smoker Start:18-Nov-2020 Instruction Type:Patient Education Patient Instructions Indication:Non-smoker Start:18-Nov-2020 Instruction Type:Provider Instructions for Treatment Patient Instructions Indication:Non-smoker Start:27-Jul-2020 Instruction Type:Provider Instructions for Treatment How to access health informa tion online Indication:Non-smoker Start:27-Jul-2020 Instruction Type:Patient Education How to access health informa tion online - Detail Indication:Non-smoker Start:27-Jul-2020 Instruction Type:Patient Education How to access health informa tion online Indication:BMI less than 19,adult Start:23-Apr-2020 Instruction Type:Patient Education How to access health informa tion online - Detail Indication:BMI less than 19,adult Start:23-Apr-2020 Instruction Type:Patient Education Patient Instructions Indication:BMI less than 19,adult Start:23-Apr-2020 Instruction Type:Provider Instructions for Treatment How to access health informa tion online Indication:Body mass index (BMI) of 19.0-19.9 in adult Start:19-Feb-2020 Instruction Type:Patient Education How to access health informa tion online - Detail Indication:Body mass index (BMI) of 19.0-19.9 in adult Start:19-Feb-2020 Instruction Type:Patient Education Patient Instructions Indication:Body mass index (BMI) of 19.0-19.9 in adult Start:19-Feb-2020 Instruction Type:Provider Instructions for Treatment How to access health informa tion online Indication:Non-smoker Start:05-Feb-2020 Instruction Type:Patient Education How to access health informa tion online - Detail Indication:Non-smoker Start:05-Feb-2020 Instruction Type:Patient Education Patient Instructions Indication:Non-smoker Start:05-Feb-2020 Instruction Type:Provider Instructions for Treatment How to access health informa tion online Indication:BMI less than 19,adult Start:31-Jan-2020 Instruction Type:Patient Education How to access health informa tion online - Detail Indication:BMI less than 19,adult Start:31-Jan-2020 Instruction Type:Patient Education Patient Instructions Indication:BMI less than 19,adult Start:31-Jan-2020 Instruction Type:Provider Instructions for Treatment Patient Instructions Indication:Constipation Start:30-Dec-2019 Instruction Type:Provider Instructions for Treatment How to access health informa tion online Indication:Non-smoker Start:28-Oct-2019 Instruction Type:Patient Education How to access health informa tion online - Detail Indication:Non-smoker Start:28-Oct-2019 Instruction Type:Patient Education Patient Instructions Indication:Non-smoker Start:28-Oct-2019 Instruction Type:Provider Instructions for Treatment How to access health informa tion online Indication:Non-smoker Start:27-Sep-2019 Instruction Type:Patient Education How to access health informa tion online - Detail Indication:Non-smoker Start:27-Sep-2019 Instruction Type:Patient Education Patient Instructions Indication:Non-smoker Start:27-Sep-2019 Instruction Type:Provider Instructions for Treatment How to access health informa tion online Indication:Body mass index (BMI) 20.0-20.9, adult Start:08-Feb-2019 Instruction Type:Patient Education How to access health informa tion online - Detail Indication:Body mass index (BMI) 20.0-20.9, adult Start:08-Feb-2019 Instruction Type:Patient Education Patient Instructions Indication:Body mass index (BMI) 20.0-20.9, adult Start:08-Feb-2019 Instruction Type:Provider Instructions for Treatment How to access health informa tion online Indication:Non-smoker Start:27-Dec-2018 Instruction Type:Patient Education How to access health informa tion online - Detail Indication:Non-smoker Start:27-Dec-2018 Instruction Type:Patient Education Patient Instructions Indication:Non-smoker Start:27-Dec-2018 Instruction Type:Provider Instructions for Treatment How to access health informa tion online Indication:Body mass index (BMI) 20.0-20.9, adult Start:10-Oct-2018 Instruction Type:Patient Education How to access health informa tion online - Detail Indication:Body mass index (BMI) 20.0-20.9, adult Start:10-Oct-2018 Instruction Type:Patient Education Patient Instructions Indication:Body mass index (BMI) 20.0-20.9, adult Start:10-Oct-2018 Instruction Type:Provider Instructions for Treatment How to access health informa tion online Indication:Body mass index (BMI) 20.0-20.9, adult Start:13-Mar-2018 Instruction Type:Patient Education How to access health informa tion online - Detail Indication:Body mass index (BMI) 20.0-20.9, adult Start:13-Mar-2018 Instruction Type:Patient Education Patient Instructions Indication:Body mass index (BMI) 20.0-20.9, adult Start:13-Mar-2018 Instruction Type:Provider Instructions for Treatment How to access health informa tion online Indication:Body mass index (BMI) 20.0-20.9, adult Start:16-Feb-2018 Instruction Type:Patient Education How to access health informa tion online - Detail Indication:Body mass index (BMI) 20.0-20.9, adult Start:16-Feb-2018 Instruction Type:Patient Education Patient Instructions Indication:Body mass index (BMI) 20.0-20.9, adult Start:16-Feb-2018 Instruction Type:Provider Instructions for Treatment How to access health informa tion online Indication:Body mass index (BMI) 20.0-20.9, adult Start:07-Aug-2017 Instruction Type:Patient Education How to access health informa tion online - Detail Indication:Body mass index (BMI) 20.0-20.9, adult Start:07-Aug-2017 Instruction Type:Patient Education Patient Instructions Indication:Headache, acute Start:07-Aug-2017 Instruction Type:Provider Instructions for Treatment How to access health informa tion online Indication:Body mass index (BMI) 20.0-20.9, adult Start:30-Jan-2017 Instruction Type:Patient Education How to access health informa tion online - Detail Indication:Body mass index (BMI) 20.0-20.9, adult Start:30-Jan-2017 Instruction Type:Patient Education Patient Instructions Indication:Body mass index (BMI) 20.0-20.9, adult Start:30-Jan-2017 Instruction Type:Provider Instructions for Treatment Patient Instructions Indication:Screening for HPV (human papillomavirus) (Renamed from Encounter for screening for human papillomavirus (HPV)) Start:11-Aug-2016 Instruction Type:Provider Instructions for Treatment Patient Instructions Indication:Dysuria Start:08-Nov-2013 Instruction Type:Provider Instructions for Treatment Patient Instructions Indication:Well woman exam with routine gynecological exam Start:23-Sep-2013 Instruction Type:Provider Instructions for Treatment Patient Instructions Indication:Low Back Pain Start:23-Nov-2012 Instruction Type:Provider Instructions for Treatment Patient Instructions Indication:Low Back Pain Start:08-Nov-2012 Instruction Type:Provider Instructions for Treatment Patient Instructions Indication:Osteopenia Start:21-Sep-2012 Instruction Type:Provider Instructions for Treatment [facility] Work Phone: [phone] for referral (narrative)No reason for referral information available[facility] Work Phone: Family History No Family History Records FoundUnknown Family Member Name Dates Details Family Members In General Comments:Cancer, DM, Emotion al, High cholesterol Status:Active Unknown Family Member Name Dates Details Family Members In General Comments:Cancer, DM, Emotion al, High cholesterol Status:Active Unknown Family Member Name Dates Details Family Members In General Comments:Cancer, DM, Emotion al, High cholesterol Status:Active Unknown Family Member Name Dates Details Family Members In General Comments:Cancer, DM, Emotion al, High cholesterol Status:Active Unknown Family Member Name Dates Details Family Members In General Comments:Cancer, DM, Emotion al, High cholesterol Status:Active Unknown Family Member Name Dates Details Family Members In General Comments:Cancer, DM, Emotion al, High cholesterol Status:Active Unknown Family Member Name Dates Details Family Members In General Comments:Cancer, DM, Emotion al, High cholesterol Status:Active Unknown Family Member Name Dates Details Family Members In General Comments:Cancer, DM, Emotion al, High cholesterol Status:Active Unknown Family Member Name Dates Details Family Members In General Comments:Cancer, DM, Emotion al, High cholesterol Status:Active Unknown Family Member Name Dates Details Family Members In General Comments:Cancer, DM, Emotion al, High cholesterol Status:Active Unknown Family Member Name Dates Details Family Members In General Comments:Cancer, DM, Emotion al, High cholesterol Status:Active Unknown Family Member Name Dates Details Family Members In General Comments:Cancer, DM, Emotion al, High cholesterol Status:Active Unknown Family Member Name Dates Details Family Members In General Comments:Cancer, DM, Emotion al, High cholesterol Status:Active Unknown Family Member Name Dates Details Family Members In General Comments:Cancer, DM, Emotion al, High cholesterol Status:Active Unknown Family Member Name Dates Details Family Members In General Comments:Cancer, DM, Emotion al, High cholesterol Status:Active Unknown Family Member Name Dates Details Family Members In General Comments:Cancer, DM, Emotion al, High cholesterol Status:Active Unknown Family Member Name Dates Details Family Members In General Comments:Cancer, DM, Emotion al, High cholesterol Status:Active Unknown Family Member Name Dates Details Family Members In General Comments:Cancer, DM, Emotion al, High cholesterol Status:Active Unknown Family Member Name Dates Details Family Members In General Comments:Cancer, DM, Emotion al, High cholesterol Status:Active Unknown Family Member Name Dates Details Family Members In General Comments:Cancer, DM, Emotion al, High cholesterol Status:Active Relationship Condition Age at Onset Recorded Date/T dixie Not Specified Diabetes mellitus Unknown mother Disorder of thyroid Unknown grandfather Malignant neoplasm of colon Unknown daughter Malignant neoplasm Unknown Unknown Family Member Name Dates Details Family Members In General Comments:Cancer, DM, Emotion al, High cholesterol Status:Active Unknown Family Member Name Dates Details Family Members In General Comments:Cancer, DM, Emotion al, High cholesterol Status:Active Unknown Family Member Name Dates Details Family Members In General Comments:Cancer, DM, Emotion al, High cholesterol Status:Active Unknown Family Member Name Dates Details Family Members In General Comments:Cancer, DM, Emotion al, High cholesterol Status:Active Unknown Family Member Name Dates Details Family Members In General Comments:Cancer, DM, Emotion al, High cholesterol Status:Active Unknown Family Member Name Dates Details Family Members In General Comments:Cancer, DM, Emotion al, High cholesterol Status:Active Unknown Family Member Name Dates Details Family Members In General Comments:Cancer, DM, Emotion al, High cholesterol Status:Active Unknown Family Member Name Dates Details Family Members In General Comments:Cancer, DM, Emotion al, High cholesterol Status:Active Unknown Family Member Name Dates Details Family Members In General Comments:Cancer, DM, Emotion al, High cholesterol Status:Active Unknown Family Member Name Dates Details Family Members In General Comments:Cancer, DM, Emotion al, High cholesterol Status:Active Unknown Family Member Name Dates Details Family Members In General Comments:Cancer, DM, Emotion al, High cholesterol Status:Active Unknown Family Member Name Dates Details Family Members In General Comments:Cancer, DM, Emotion al, High cholesterol Status:Active Unknown Family Member Name Dates Details Family Members In General Comments:Cancer, DM, Emotion al, High cholesterol Status:Active Unknown Family Member Name Dates Details Family Members In General Comments:Cancer, DM, Emotion al, High cholesterol Status:Active Unknown Family Member Name Dates Details Family Members In General Comments:Cancer, DM, Emotion al, High cholesterol Status:Active Unknown Family Member Name Dates Details Family Members In General Comments:Cancer, DM, Emotion al, High cholesterol Status:Active Unknown Family Member Name Dates Details Family Members In General Comments:Cancer, DM, Emotion al, High cholesterol Status:Active Unknown Family Member Name Dates Details Family Members In General Comments:Cancer, DM, Emotion al, High cholesterol Status:Active Unknown Family Member Name Dates Details Family Members In General Comments:Cancer, DM, Emotion al, High cholesterol Status:Active Instructions Name Dates Details Body mass index (BMI) 20.0-2 0.9, adult : How to access health information online Indication:Body mass index (BMI) 20.0-20.9, adult Body mass index (BMI) 20.0-2 0.9, adult : How to access health information online - Detail Indication:Body mass index (BMI) 20.0-20.9, adult Body mass index (BMI) 20.0-2 0.9, adult : Patient Instructions Indication:Body mass index (BMI) 20.0-20.9, adult Headache, acute : Patient In structions Indication:Headache, acute Screening for HPV (human pap illomavirus) (Renamed from Encounter for screening for human papillomavirus (HPV)) : Patient Instructions Indication:Screening for HPV (human papillomavirus) (Renamed from Encounter for screening for human papillomavirus (HPV)) Dysuria : Patient Instructio ns Indication:Dysuria Well woman exam with routine gynecological exam : Patient Instructions Indication:Well woman exam with routine gynecological exam Low Back Pain : Patient Inst ructions Indication:Low Back Pain Osteopenia : Patient Instruc tions Indication:Osteopenia Name Dates Details Body mass index (BMI) 20.0-2 0.9, adult : How to access health information online Indication:Body mass index (BMI) 20.0-20.9, adult Body mass index (BMI) 20.0-2 0.9, adult : How to access health information online - Detail Indication:Body mass index (BMI) 20.0-20.9, adult Body mass index (BMI) 20.0-2 0.9, adult : Patient Instructions Indication:Body mass index (BMI) 20.0-20.9, adult Headache, acute : Patient In structions Indication:Headache, acute Screening for HPV (human pap illomavirus) (Renamed from Encounter for screening for human papillomavirus (HPV)) : Patient Instructions Indication:Screening for HPV (human papillomavirus) (Renamed from Encounter for screening for human papillomavirus (HPV)) Dysuria : Patient Instructio ns Indication:Dysuria Well woman exam with routine gynecological exam : Patient Instructions Indication:Well woman exam with routine gynecological exam Low Back Pain : Patient Inst ructions Indication:Low Back Pain Osteopenia : Patient Instruc tions Indication:Osteopenia Name Dates Details Body mass index (BMI) 20.0-2 0.9, adult : How to access health information online Indication:Body mass index (BMI) 20.0-20.9, adult Body mass index (BMI) 20.0-2 0.9, adult : How to access health information online - Detail Indication:Body mass index (BMI) 20.0-20.9, adult Body mass index (BMI) 20.0-2 0.9, adult : Patient Instructions Indication:Body mass index (BMI) 20.0-20.9, adult Headache, acute : Patient In structions Indication:Headache, acute Screening for HPV (human pap illomavirus) (Renamed from Encounter for screening for human papillomavirus (HPV)) : Patient Instructions Indication:Screening for HPV (human papillomavirus) (Renamed from Encounter for screening for human papillomavirus (HPV)) Dysuria : Patient Instructio ns Indication:Dysuria Well woman exam with routine gynecological exam : Patient Instructions Indication:Well woman exam with routine gynecological exam Low Back Pain : Patient Inst ructions Indication:Low Back Pain Osteopenia : Patient Instruc tions Indication:Osteopenia Name Dates Details Non-smoker : How to access h ealth information online Indication:Non-smoker Non-smoker : How to access h ealth information online - Detail Indication:Non-smoker Non-smoker : Patient Instruc tions Indication:Non-smoker Body mass index (BMI) 20.0-2 0.9, adult : How to access health information online Indication:Body mass index (BMI) 20.0-20.9, adult Body mass index (BMI) 20.0-2 0.9, adult : How to access health information online - Detail Indication:Body mass index (BMI) 20.0-20.9, adult Body mass index (BMI) 20.0-2 0.9, adult : Patient Instructions Indication:Body mass index (BMI) 20.0-20.9, adult Headache, acute : Patient In structions Indication:Headache, acute Screening for HPV (human pap illomavirus) (Renamed from Encounter for screening for human papillomavirus (HPV)) : Patient Instructions Indication:Screening for HPV (human papillomavirus) (Renamed from Encounter for screening for human papillomavirus (HPV)) Dysuria : Patient Instructio ns Indication:Dysuria Well woman exam with routine gynecological exam : Patient Instructions Indication:Well woman exam with routine gynecological exam Low Back Pain : Patient Inst ructions Indication:Low Back Pain Osteopenia : Patient Instruc tions Indication:Osteopenia Name Dates Details Non-smoker : How to access h ealth information online Indication:Non-smoker Non-smoker : How to access h ealth information online - Detail Indication:Non-smoker Non-smoker : Patient Instruc tions Indication:Non-smoker Body mass index (BMI) 20.0-2 0.9, adult : How to access health information online Indication:Body mass index (BMI) 20.0-20.9, adult Body mass index (BMI) 20.0-2 0.9, adult : How to access health information online - Detail Indication:Body mass index (BMI) 20.0-20.9, adult Body mass index (BMI) 20.0-2 0.9, adult : Patient Instructions Indication:Body mass index (BMI) 20.0-20.9, adult Headache, acute : Patient In structions Indication:Headache, acute Screening for HPV (human pap illomavirus) (Renamed from Encounter for screening for human papillomavirus (HPV)) : Patient Instructions Indication:Screening for HPV (human papillomavirus) (Renamed from Encounter for screening for human papillomavirus (HPV)) Dysuria : Patient Instructio ns Indication:Dysuria Well woman exam with routine gynecological exam : Patient Instructions Indication:Well woman exam with routine gynecological exam Low Back Pain : Patient Inst ructions Indication:Low Back Pain Osteopenia : Patient Instruc tions Indication:Osteopenia Name Dates Details How to access health informa tion online Indication:Body mass index (BMI) 20.0-20.9, adult Start:08-Feb-2019 Instruction Type:Patient Education How to access health informa tion online - Detail Indication:Body mass index (BMI) 20.0-20.9, adult Start:08-Feb-2019 Instruction Type:Patient Education Patient Instructions Indication:Body mass index (BMI) 20.0-20.9, adult Start:08-Feb-2019 Instruction Type:Provider Instructions for Treatment How to access health informa tion online Indication:Non-smoker Start:27-Dec-2018 Instruction Type:Patient Education How to access health informa tion online - Detail Indication:Non-smoker Start:27-Dec-2018 Instruction Type:Patient Education Patient Instructions Indication:Non-smoker Start:27-Dec-2018 Instruction Type:Provider Instructions for Treatment How to access health informa tion online Indication:Body mass index (BMI) 20.0-20.9, adult Start:10-Oct-2018 Instruction Type:Patient Education How to access health informa tion online - Detail Indication:Body mass index (BMI) 20.0-20.9, adult Start:10-Oct-2018 Instruction Type:Patient Education Patient Instructions Indication:Body mass index (BMI) 20.0-20.9, adult Start:10-Oct-2018 Instruction Type:Provider Instructions for Treatment How to access health informa tion online Indication:Body mass index (BMI) 20.0-20.9, adult Start:13-Mar-2018 Instruction Type:Patient Education How to access health informa tion online - Detail Indication:Body mass index (BMI) 20.0-20.9, adult Start:13-Mar-2018 Instruction Type:Patient Education Patient Instructions Indication:Body mass index (BMI) 20.0-20.9, adult Start:13-Mar-2018 Instruction Type:Provider Instructions for Treatment How to access health informa tion online Indication:Body mass index (BMI) 20.0-20.9, adult Start:16-Feb-2018 Instruction Type:Patient Education How to access health informa tion online - Detail Indication:Body mass index (BMI) 20.0-20.9, adult Start:16-Feb-2018 Instruction Type:Patient Education Patient Instructions Indication:Body mass index (BMI) 20.0-20.9, adult Start:16-Feb-2018 Instruction Type:Provider Instructions for Treatment How to access health informa tion online Indication:Body mass index (BMI) 20.0-20.9, adult Start:07-Aug-2017 Instruction Type:Patient Education How to access health informa tion online - Detail Indication:Body mass index (BMI) 20.0-20.9, adult Start:07-Aug-2017 Instruction Type:Patient Education Patient Instructions Indication:Headache, acute Start:07-Aug-2017 Instruction Type:Provider Instructions for Treatment How to access health informa tion online Indication:Body mass index (BMI) 20.0-20.9, adult Start:30-Jan-2017 Instruction Type:Patient Education How to access health informa tion online - Detail Indication:Body mass index (BMI) 20.0-20.9, adult Start:30-Jan-2017 Instruction Type:Patient Education Patient Instructions Indication:Body mass index (BMI) 20.0-20.9, adult Start:30-Jan-2017 Instruction Type:Provider Instructions for Treatment Patient Instructions Indication:Screening for HPV (human papillomavirus) (Renamed from Encounter for screening for human papillomavirus (HPV)) Start:11-Aug-2016 Instruction Type:Provider Instructions for Treatment Patient Instructions Indication:Dysuria Start:08-Nov-2013 Instruction Type:Provider Instructions for Treatment Patient Instructions Indication:Well woman exam with routine gynecological exam Start:23-Sep-2013 Instruction Type:Provider Instructions for Treatment Patient Instructions Indication:Low Back Pain Start:23-Nov-2012 Instruction Type:Provider Instructions for Treatment Patient Instructions Indication:Low Back Pain Start:08-Nov-2012 Instruction Type:Provider Instructions for Treatment Patient Instructions Indication:Osteopenia Start:21-Sep-2012 Instruction Type:Provider Instructions for Treatment Name Dates Details How to access health informa tion online Indication:Body mass index (BMI) 20.0-20.9, adult Start:08-Feb-2019 Instruction Type:Patient Education How to access health informa tion online - Detail Indication:Body mass index (BMI) 20.0-20.9, adult Start:08-Feb-2019 Instruction Type:Patient Education Patient Instructions Indication:Body mass index (BMI) 20.0-20.9, adult Start:08-Feb-2019 Instruction Type:Provider Instructions for Treatment How to access health informa tion online Indication:Non-smoker Start:27-Dec-2018 Instruction Type:Patient Education How to access health informa tion online - Detail Indication:Non-smoker Start:27-Dec-2018 Instruction Type:Patient Education Patient Instructions Indication:Non-smoker Start:27-Dec-2018 Instruction Type:Provider Instructions for Treatment How to access health informa tion online Indication:Body mass index (BMI) 20.0-20.9, adult Start:10-Oct-2018 Instruction Type:Patient Education How to access health informa tion online - Detail Indication:Body mass index (BMI) 20.0-20.9, adult Start:10-Oct-2018 Instruction Type:Patient Education Patient Instructions Indication:Body mass index (BMI) 20.0-20.9, adult Start:10-Oct-2018 Instruction Type:Provider Instructions for Treatment How to access health informa tion online Indication:Body mass index (BMI) 20.0-20.9, adult Start:13-Mar-2018 Instruction Type:Patient Education How to access health informa tion online - Detail Indication:Body mass index (BMI) 20.0-20.9, adult Start:13-Mar-2018 Instruction Type:Patient Education Patient Instructions Indication:Body mass index (BMI) 20.0-20.9, adult Start:13-Mar-2018 Instruction Type:Provider Instructions for Treatment How to access health informa tion online Indication:Body mass index (BMI) 20.0-20.9, adult Start:16-Feb-2018 Instruction Type:Patient Education How to access health informa tion online - Detail Indication:Body mass index (BMI) 20.0-20.9, adult Start:16-Feb-2018 Instruction Type:Patient Education Patient Instructions Indication:Body mass index (BMI) 20.0-20.9, adult Start:16-Feb-2018 Instruction Type:Provider Instructions for Treatment How to access health informa tion online Indication:Body mass index (BMI) 20.0-20.9, adult Start:07-Aug-2017 Instruction Type:Patient Education How to access health informa tion online - Detail Indication:Body mass index (BMI) 20.0-20.9, adult Start:07-Aug-2017 Instruction Type:Patient Education Patient Instructions Indication:Headache, acute Start:07-Aug-2017 Instruction Type:Provider Instructions for Treatment How to access health informa tion online Indication:Body mass index (BMI) 20.0-20.9, adult Start:30-Jan-2017 Instruction Type:Patient Education How to access health informa tion online - Detail Indication:Body mass index (BMI) 20.0-20.9, adult Start:30-Jan-2017 Instruction Type:Patient Education Patient Instructions Indication:Body mass index (BMI) 20.0-20.9, adult Start:30-Jan-2017 Instruction Type:Provider Instructions for Treatment Patient Instructions Indication:Screening for HPV (human papillomavirus) (Renamed from Encounter for screening for human papillomavirus (HPV)) Start:11-Aug-2016 Instruction Type:Provider Instructions for Treatment Patient Instructions Indication:Dysuria Start:08-Nov-2013 Instruction Type:Provider Instructions for Treatment Patient Instructions Indication:Well woman exam with routine gynecological exam Start:23-Sep-2013 Instruction Type:Provider Instructions for Treatment Patient Instructions Indication:Low Back Pain Start:23-Nov-2012 Instruction Type:Provider Instructions for Treatment Patient Instructions Indication:Low Back Pain Start:08-Nov-2012 Instruction Type:Provider Instructions for Treatment Patient Instructions Indication:Osteopenia Start:21-Sep-2012 Instruction Type:Provider Instructions for Treatment Name Dates Details How to access health informa tion online Indication:Body mass index (BMI) 20.0-20.9, adult Start:08-Feb-2019 Instruction Type:Patient Education How to access health informa tion online - Detail Indication:Body mass index (BMI) 20.0-20.9, adult Start:08-Feb-2019 Instruction Type:Patient Education Patient Instructions Indication:Body mass index (BMI) 20.0-20.9, adult Start:08-Feb-2019 Instruction Type:Provider Instructions for Treatment How to access health informa tion online Indication:Non-smoker Start:27-Dec-2018 Instruction Type:Patient Education How to access health informa tion online - Detail Indication:Non-smoker Start:27-Dec-2018 Instruction Type:Patient Education Patient Instructions Indication:Non-smoker Start:27-Dec-2018 Instruction Type:Provider Instructions for Treatment How to access health informa tion online Indication:Body mass index (BMI) 20.0-20.9, adult Start:10-Oct-2018 Instruction Type:Patient Education How to access health informa tion online - Detail Indication:Body mass index (BMI) 20.0-20.9, adult Start:10-Oct-2018 Instruction Type:Patient Education Patient Instructions Indication:Body mass index (BMI) 20.0-20.9, adult Start:10-Oct-2018 Instruction Type:Provider Instructions for Treatment How to access health informa tion online Indication:Body mass index (BMI) 20.0-20.9, adult Start:13-Mar-2018 Instruction Type:Patient Education How to access health informa tion online - Detail Indication:Body mass index (BMI) 20.0-20.9, adult Start:13-Mar-2018 Instruction Type:Patient Education Patient Instructions Indication:Body mass index (BMI) 20.0-20.9, adult Start:13-Mar-2018 Instruction Type:Provider Instructions for Treatment How to access health informa tion online Indication:Body mass index (BMI) 20.0-20.9, adult Start:16-Feb-2018 Instruction Type:Patient Education How to access health informa tion online - Detail Indication:Body mass index (BMI) 20.0-20.9, adult Start:16-Feb-2018 Instruction Type:Patient Education Patient Instructions Indication:Body mass index (BMI) 20.0-20.9, adult Start:16-Feb-2018 Instruction Type:Provider Instructions for Treatment How to access health informa tion online Indication:Body mass index (BMI) 20.0-20.9, adult Start:07-Aug-2017 Instruction Type:Patient Education How to access health informa tion online - Detail Indication:Body mass index (BMI) 20.0-20.9, adult Start:07-Aug-2017 Instruction Type:Patient Education Patient Instructions Indication:Headache, acute Start:07-Aug-2017 Instruction Type:Provider Instructions for Treatment How to access health informa tion online Indication:Body mass index (BMI) 20.0-20.9, adult Start:30-Jan-2017 Instruction Type:Patient Education How to access health informa tion online - Detail Indication:Body mass index (BMI) 20.0-20.9, adult Start:30-Jan-2017 Instruction Type:Patient Education Patient Instructions Indication:Body mass index (BMI) 20.0-20.9, adult Start:30-Jan-2017 Instruction Type:Provider Instructions for Treatment Patient Instructions Indication:Screening for HPV (human papillomavirus) (Renamed from Encounter for screening for human papillomavirus (HPV)) Start:11-Aug-2016 Instruction Type:Provider Instructions for Treatment Patient Instructions Indication:Dysuria Start:08-Nov-2013 Instruction Type:Provider Instructions for Treatment Patient Instructions Indication:Well woman exam with routine gynecological exam Start:23-Sep-2013 Instruction Type:Provider Instructions for Treatment Patient Instructions Indication:Low Back Pain Start:23-Nov-2012 Instruction Type:Provider Instructions for Treatment Patient Instructions Indication:Low Back Pain Start:08-Nov-2012 Instruction Type:Provider Instructions for Treatment Patient Instructions Indication:Osteopenia Start:21-Sep-2012 Instruction Type:Provider Instructions for Treatment Name Dates Details How to access health informa tion online Indication:Body mass index (BMI) 20.0-20.9, adult Start:08-Feb-2019 Instruction Type:Patient Education How to access health informa tion online - Detail Indication:Body mass index (BMI) 20.0-20.9, adult Start:08-Feb-2019 Instruction Type:Patient Education Patient Instructions Indication:Body mass index (BMI) 20.0-20.9, adult Start:08-Feb-2019 Instruction Type:Provider Instructions for Treatment How to access health informa tion online Indication:Non-smoker Start:27-Dec-2018 Instruction Type:Patient Education How to access health informa tion online - Detail Indication:Non-smoker Start:27-Dec-2018 Instruction Type:Patient Education Patient Instructions Indication:Non-smoker Start:27-Dec-2018 Instruction Type:Provider Instructions for Treatment How to access health informa tion online Indication:Body mass index (BMI) 20.0-20.9, adult Start:10-Oct-2018 Instruction Type:Patient Education How to access health informa tion online - Detail Indication:Body mass index (BMI) 20.0-20.9, adult Start:10-Oct-2018 Instruction Type:Patient Education Patient Instructions Indication:Body mass index (BMI) 20.0-20.9, adult Start:10-Oct-2018 Instruction Type:Provider Instructions for Treatment How to access health informa tion online Indication:Body mass index (BMI) 20.0-20.9, adult Start:13-Mar-2018 Instruction Type:Patient Education How to access health informa tion online - Detail Indication:Body mass index (BMI) 20.0-20.9, adult Start:13-Mar-2018 Instruction Type:Patient Education Patient Instructions Indication:Body mass index (BMI) 20.0-20.9, adult Start:13-Mar-2018 Instruction Type:Provider Instructions for Treatment How to access health informa tion online Indication:Body mass index (BMI) 20.0-20.9, adult Start:16-Feb-2018 Instruction Type:Patient Education How to access health informa tion online - Detail Indication:Body mass index (BMI) 20.0-20.9, adult Start:16-Feb-2018 Instruction Type:Patient Education Patient Instructions Indication:Body mass index (BMI) 20.0-20.9, adult Start:16-Feb-2018 Instruction Type:Provider Instructions for Treatment How to access health informa tion online Indication:Body mass index (BMI) 20.0-20.9, adult Start:07-Aug-2017 Instruction Type:Patient Education How to access health informa tion online - Detail Indication:Body mass index (BMI) 20.0-20.9, adult Start:07-Aug-2017 Instruction Type:Patient Education Patient Instructions Indication:Headache, acute Start:07-Aug-2017 Instruction Type:Provider Instructions for Treatment How to access health informa tion online Indication:Body mass index (BMI) 20.0-20.9, adult Start:30-Jan-2017 Instruction Type:Patient Education How to access health informa tion online - Detail Indication:Body mass index (BMI) 20.0-20.9, adult Start:30-Jan-2017 Instruction Type:Patient Education Patient Instructions Indication:Body mass index (BMI) 20.0-20.9, adult Start:30-Jan-2017 Instruction Type:Provider Instructions for Treatment Patient Instructions Indication:Screening for HPV (human papillomavirus) (Renamed from Encounter for screening for human papillomavirus (HPV)) Start:11-Aug-2016 Instruction Type:Provider Instructions for Treatment Patient Instructions Indication:Dysuria Start:08-Nov-2013 Instruction Type:Provider Instructions for Treatment Patient Instructions Indication:Well woman exam with routine gynecological exam Start:23-Sep-2013 Instruction Type:Provider Instructions for Treatment Patient Instructions Indication:Low Back Pain Start:23-Nov-2012 Instruction Type:Provider Instructions for Treatment Patient Instructions Indication:Low Back Pain Start:08-Nov-2012 Instruction Type:Provider Instructions for Treatment Patient Instructions Indication:Osteopenia Start:21-Sep-2012 Instruction Type:Provider Instructions for Treatment Name Dates Details How to access health informa tion online Indication:Body mass index (BMI) of 19.0-19.9 in adult Start:19-Feb-2020 Instruction Type:Patient Education How to access health informa tion online - Detail Indication:Body mass index (BMI) of 19.0-19.9 in adult Start:19-Feb-2020 Instruction Type:Patient Education Patient Instructions Indication:Body mass index (BMI) of 19.0-19.9 in adult Start:19-Feb-2020 Instruction Type:Provider Instructions for Treatment How to access health informa tion online Indication:Non-smoker Start:05-Feb-2020 Instruction Type:Patient Education How to access health informa tion online - Detail Indication:Non-smoker Start:05-Feb-2020 Instruction Type:Patient Education Patient Instructions Indication:Non-smoker Start:05-Feb-2020 Instruction Type:Provider Instructions for Treatment How to access health informa tion online Indication:BMI less than 19,adult Start:31-Jan-2020 Instruction Type:Patient Education How to access health informa tion online - Detail Indication:BMI less than 19,adult Start:31-Jan-2020 Instruction Type:Patient Education Patient Instructions Indication:BMI less than 19,adult Start:31-Jan-2020 Instruction Type:Provider Instructions for Treatment Patient Instructions Indication:Constipation Start:30-Dec-2019 Instruction Type:Provider Instructions for Treatment How to access health informa tion online Indication:Non-smoker Start:28-Oct-2019 Instruction Type:Patient Education How to access health informa tion online - Detail Indication:Non-smoker Start:28-Oct-2019 Instruction Type:Patient Education Patient Instructions Indication:Non-smoker Start:28-Oct-2019 Instruction Type:Provider Instructions for Treatment How to access health informa tion online Indication:Non-smoker Start:27-Sep-2019 Instruction Type:Patient Education How to access health informa tion online - Detail Indication:Non-smoker Start:27-Sep-2019 Instruction Type:Patient Education Patient Instructions Indication:Non-smoker Start:27-Sep-2019 Instruction Type:Provider Instructions for Treatment How to access health informa tion online Indication:Body mass index (BMI) 20.0-20.9, adult Start:08-Feb-2019 Instruction Type:Patient Education How to access health informa tion online - Detail Indication:Body mass index (BMI) 20.0-20.9, adult Start:08-Feb-2019 Instruction Type:Patient Education Patient Instructions Indication:Body mass index (BMI) 20.0-20.9, adult Start:08-Feb-2019 Instruction Type:Provider Instructions for Treatment How to access health informa tion online Indication:Non-smoker Start:27-Dec-2018 Instruction Type:Patient Education How to access health informa tion online - Detail Indication:Non-smoker Start:27-Dec-2018 Instruction Type:Patient Education Patient Instructions Indication:Non-smoker Start:27-Dec-2018 Instruction Type:Provider Instructions for Treatment How to access health informa tion online Indication:Body mass index (BMI) 20.0-20.9, adult Start:10-Oct-2018 Instruction Type:Patient Education How to access health informa tion online - Detail Indication:Body mass index (BMI) 20.0-20.9, adult Start:10-Oct-2018 Instruction Type:Patient Education Patient Instructions Indication:Body mass index (BMI) 20.0-20.9, adult Start:10-Oct-2018 Instruction Type:Provider Instructions for Treatment How to access health informa tion online Indication:Body mass index (BMI) 20.0-20.9, adult Start:13-Mar-2018 Instruction Type:Patient Education How to access health informa tion online - Detail Indication:Body mass index (BMI) 20.0-20.9, adult Start:13-Mar-2018 Instruction Type:Patient Education Patient Instructions Indication:Body mass index (BMI) 20.0-20.9, adult Start:13-Mar-2018 Instruction Type:Provider Instructions for Treatment How to access health informa tion online Indication:Body mass index (BMI) 20.0-20.9, adult Start:16-Feb-2018 Instruction Type:Patient Education How to access health informa tion online - Detail Indication:Body mass index (BMI) 20.0-20.9, adult Start:16-Feb-2018 Instruction Type:Patient Education Patient Instructions Indication:Body mass index (BMI) 20.0-20.9, adult Start:16-Feb-2018 Instruction Type:Provider Instructions for Treatment How to access health informa tion online Indication:Body mass index (BMI) 20.0-20.9, adult Start:07-Aug-2017 Instruction Type:Patient Education How to access health informa tion online - Detail Indication:Body mass index (BMI) 20.0-20.9, adult Start:07-Aug-2017 Instruction Type:Patient Education Patient Instructions Indication:Headache, acute Start:07-Aug-2017 Instruction Type:Provider Instructions for Treatment How to access health informa tion online Indication:Body mass index (BMI) 20.0-20.9, adult Start:30-Jan-2017 Instruction Type:Patient Education How to access health informa tion online - Detail Indication:Body mass index (BMI) 20.0-20.9, adult Start:30-Jan-2017 Instruction Type:Patient Education Patient Instructions Indication:Body mass index (BMI) 20.0-20.9, adult Start:30-Jan-2017 Instruction Type:Provider Instructions for Treatment Patient Instructions Indication:Screening for HPV (human papillomavirus) (Renamed from Encounter for screening for human papillomavirus (HPV)) Start:11-Aug-2016 Instruction Type:Provider Instructions for Treatment Patient Instructions Indication:Dysuria Start:08-Nov-2013 Instruction Type:Provider Instructions for Treatment Patient Instructions Indication:Well woman exam with routine gynecological exam Start:23-Sep-2013 Instruction Type:Provider Instructions for Treatment Patient Instructions Indication:Low Back Pain Start:23-Nov-2012 Instruction Type:Provider Instructions for Treatment Patient Instructions Indication:Low Back Pain Start:08-Nov-2012 Instruction Type:Provider Instructions for Treatment Patient Instructions Indication:Osteopenia Start:21-Sep-2012 Instruction Type:Provider Instructions for Treatment Name Dates Details How to access health informa tion online Indication:BMI less than 19,adult Start:23-Apr-2020 Instruction Type:Patient Education How to access health informa tion online - Detail Indication:BMI less than 19,adult Start:23-Apr-2020 Instruction Type:Patient Education Patient Instructions Indication:BMI less than 19,adult Start:23-Apr-2020 Instruction Type:Provider Instructions for Treatment How to access health informa tion online Indication:Body mass index (BMI) of 19.0-19.9 in adult Start:19-Feb-2020 Instruction Type:Patient Education How to access health informa tion online - Detail Indication:Body mass index (BMI) of 19.0-19.9 in adult Start:19-Feb-2020 Instruction Type:Patient Education Patient Instructions Indication:Body mass index (BMI) of 19.0-19.9 in adult Start:19-Feb-2020 Instruction Type:Provider Instructions for Treatment How to access health informa tion online Indication:Non-smoker Start:05-Feb-2020 Instruction Type:Patient Education How to access health informa tion online - Detail Indication:Non-smoker Start:05-Feb-2020 Instruction Type:Patient Education Patient Instructions Indication:Non-smoker Start:05-Feb-2020 Instruction Type:Provider Instructions for Treatment How to access health informa tion online Indication:BMI less than 19,adult Start:31-Jan-2020 Instruction Type:Patient Education How to access health informa tion online - Detail Indication:BMI less than 19,adult Start:31-Jan-2020 Instruction Type:Patient Education Patient Instructions Indication:BMI less than 19,adult Start:31-Jan-2020 Instruction Type:Provider Instructions for Treatment Patient Instructions Indication:Constipation Start:30-Dec-2019 Instruction Type:Provider Instructions for Treatment How to access health informa tion online Indication:Non-smoker Start:28-Oct-2019 Instruction Type:Patient Education How to access health informa tion online - Detail Indication:Non-smoker Start:28-Oct-2019 Instruction Type:Patient Education Patient Instructions Indication:Non-smoker Start:28-Oct-2019 Instruction Type:Provider Instructions for Treatment How to access health informa tion online Indication:Non-smoker Start:27-Sep-2019 Instruction Type:Patient Education How to access health informa tion online - Detail Indication:Non-smoker Start:27-Sep-2019 Instruction Type:Patient Education Patient Instructions Indication:Non-smoker Start:27-Sep-2019 Instruction Type:Provider Instructions for Treatment How to access health informa tion online Indication:Body mass index (BMI) 20.0-20.9, adult Start:08-Feb-2019 Instruction Type:Patient Education How to access health informa tion online - Detail Indication:Body mass index (BMI) 20.0-20.9, adult Start:08-Feb-2019 Instruction Type:Patient Education Patient Instructions Indication:Body mass index (BMI) 20.0-20.9, adult Start:08-Feb-2019 Instruction Type:Provider Instructions for Treatment How to access health informa tion online Indication:Non-smoker Start:27-Dec-2018 Instruction Type:Patient Education How to access health informa tion online - Detail Indication:Non-smoker Start:27-Dec-2018 Instruction Type:Patient Education Patient Instructions Indication:Non-smoker Start:27-Dec-2018 Instruction Type:Provider Instructions for Treatment How to access health informa tion online Indication:Body mass index (BMI) 20.0-20.9, adult Start:10-Oct-2018 Instruction Type:Patient Education How to access health informa tion online - Detail Indication:Body mass index (BMI) 20.0-20.9, adult Start:10-Oct-2018 Instruction Type:Patient Education Patient Instructions Indication:Body mass index (BMI) 20.0-20.9, adult Start:10-Oct-2018 Instruction Type:Provider Instructions for Treatment How to access health informa tion online Indication:Body mass index (BMI) 20.0-20.9, adult Start:13-Mar-2018 Instruction Type:Patient Education How to access health informa tion online - Detail Indication:Body mass index (BMI) 20.0-20.9, adult Start:13-Mar-2018 Instruction Type:Patient Education Patient Instructions Indication:Body mass index (BMI) 20.0-20.9, adult Start:13-Mar-2018 Instruction Type:Provider Instructions for Treatment How to access health informa tion online Indication:Body mass index (BMI) 20.0-20.9, adult Start:16-Feb-2018 Instruction Type:Patient Education How to access health informa tion online - Detail Indication:Body mass index (BMI) 20.0-20.9, adult Start:16-Feb-2018 Instruction Type:Patient Education Patient Instructions Indication:Body mass index (BMI) 20.0-20.9, adult Start:16-Feb-2018 Instruction Type:Provider Instructions for Treatment How to access health informa tion online Indication:Body mass index (BMI) 20.0-20.9, adult Start:07-Aug-2017 Instruction Type:Patient Education How to access health informa tion online - Detail Indication:Body mass index (BMI) 20.0-20.9, adult Start:07-Aug-2017 Instruction Type:Patient Education Patient Instructions Indication:Headache, acute Start:07-Aug-2017 Instruction Type:Provider Instructions for Treatment How to access health informa tion online Indication:Body mass index (BMI) 20.0-20.9, adult Start:30-Jan-2017 Instruction Type:Patient Education How to access health informa tion online - Detail Indication:Body mass index (BMI) 20.0-20.9, adult Start:30-Jan-2017 Instruction Type:Patient Education Patient Instructions Indication:Body mass index (BMI) 20.0-20.9, adult Start:30-Jan-2017 Instruction Type:Provider Instructions for Treatment Patient Instructions Indication:Screening for HPV (human papillomavirus) (Renamed from Encounter for screening for human papillomavirus (HPV)) Start:11-Aug-2016 Instruction Type:Provider Instructions for Treatment Patient Instructions Indication:Dysuria Start:08-Nov-2013 Instruction Type:Provider Instructions for Treatment Patient Instructions Indication:Well woman exam with routine gynecological exam Start:23-Sep-2013 Instruction Type:Provider Instructions for Treatment Patient Instructions Indication:Low Back Pain Start:23-Nov-2012 Instruction Type:Provider Instructions for Treatment Patient Instructions Indication:Low Back Pain Start:08-Nov-2012 Instruction Type:Provider Instructions for Treatment Patient Instructions Indication:Osteopenia Start:21-Sep-2012 Instruction Type:Provider Instructions for Treatment Name Dates Details How to access health informa tion online Indication:BMI less than 19,adult Start:23-Apr-2020 Instruction Type:Patient Education How to access health informa tion online - Detail Indication:BMI less than 19,adult Start:23-Apr-2020 Instruction Type:Patient Education Patient Instructions Indication:BMI less than 19,adult Start:23-Apr-2020 Instruction Type:Provider Instructions for Treatment How to access health informa tion online Indication:Body mass index (BMI) of 19.0-19.9 in adult Start:19-Feb-2020 Instruction Type:Patient Education How to access health informa tion online - Detail Indication:Body mass index (BMI) of 19.0-19.9 in adult Start:19-Feb-2020 Instruction Type:Patient Education Patient Instructions Indication:Body mass index (BMI) of 19.0-19.9 in adult Start:19-Feb-2020 Instruction Type:Provider Instructions for Treatment How to access health informa tion online Indication:Non-smoker Start:05-Feb-2020 Instruction Type:Patient Education How to access health informa tion online - Detail Indication:Non-smoker Start:05-Feb-2020 Instruction Type:Patient Education Patient Instructions Indication:Non-smoker Start:05-Feb-2020 Instruction Type:Provider Instructions for Treatment How to access health informa tion online Indication:BMI less than 19,adult Start:31-Jan-2020 Instruction Type:Patient Education How to access health informa tion online - Detail Indication:BMI less than 19,adult Start:31-Jan-2020 Instruction Type:Patient Education Patient Instructions Indication:BMI less than 19,adult Start:31-Jan-2020 Instruction Type:Provider Instructions for Treatment Patient Instructions Indication:Constipation Start:30-Dec-2019 Instruction Type:Provider Instructions for Treatment How to access health informa tion online Indication:Non-smoker Start:28-Oct-2019 Instruction Type:Patient Education How to access health informa tion online - Detail Indication:Non-smoker Start:28-Oct-2019 Instruction Type:Patient Education Patient Instructions Indication:Non-smoker Start:28-Oct-2019 Instruction Type:Provider Instructions for Treatment How to access health informa tion online Indication:Non-smoker Start:27-Sep-2019 Instruction Type:Patient Education How to access health informa tion online - Detail Indication:Non-smoker Start:27-Sep-2019 Instruction Type:Patient Education Patient Instructions Indication:Non-smoker Start:27-Sep-2019 Instruction Type:Provider Instructions for Treatment How to access health informa tion online Indication:Body mass index (BMI) 20.0-20.9, adult Start:08-Feb-2019 Instruction Type:Patient Education How to access health informa tion online - Detail Indication:Body mass index (BMI) 20.0-20.9, adult Start:08-Feb-2019 Instruction Type:Patient Education Patient Instructions Indication:Body mass index (BMI) 20.0-20.9, adult Start:08-Feb-2019 Instruction Type:Provider Instructions for Treatment How to access health informa tion online Indication:Non-smoker Start:27-Dec-2018 Instruction Type:Patient Education How to access health informa tion online - Detail Indication:Non-smoker Start:27-Dec-2018 Instruction Type:Patient Education Patient Instructions Indication:Non-smoker Start:27-Dec-2018 Instruction Type:Provider Instructions for Treatment How to access health informa tion online Indication:Body mass index (BMI) 20.0-20.9, adult Start:10-Oct-2018 Instruction Type:Patient Education How to access health informa tion online - Detail Indication:Body mass index (BMI) 20.0-20.9, adult Start:10-Oct-2018 Instruction Type:Patient Education Patient Instructions Indication:Body mass index (BMI) 20.0-20.9, adult Start:10-Oct-2018 Instruction Type:Provider Instructions for Treatment How to access health informa tion online Indication:Body mass index (BMI) 20.0-20.9, adult Start:13-Mar-2018 Instruction Type:Patient Education How to access health informa tion online - Detail Indication:Body mass index (BMI) 20.0-20.9, adult Start:13-Mar-2018 Instruction Type:Patient Education Patient Instructions Indication:Body mass index (BMI) 20.0-20.9, adult Start:13-Mar-2018 Instruction Type:Provider Instructions for Treatment How to access health informa tion online Indication:Body mass index (BMI) 20.0-20.9, adult Start:16-Feb-2018 Instruction Type:Patient Education How to access health informa tion online - Detail Indication:Body mass index (BMI) 20.0-20.9, adult Start:16-Feb-2018 Instruction Type:Patient Education Patient Instructions Indication:Body mass index (BMI) 20.0-20.9, adult Start:16-Feb-2018 Instruction Type:Provider Instructions for Treatment How to access health informa tion online Indication:Body mass index (BMI) 20.0-20.9, adult Start:07-Aug-2017 Instruction Type:Patient Education How to access health informa tion online - Detail Indication:Body mass index (BMI) 20.0-20.9, adult Start:07-Aug-2017 Instruction Type:Patient Education Patient Instructions Indication:Headache, acute Start:07-Aug-2017 Instruction Type:Provider Instructions for Treatment How to access health informa tion online Indication:Body mass index (BMI) 20.0-20.9, adult Start:30-Jan-2017 Instruction Type:Patient Education How to access health informa tion online - Detail Indication:Body mass index (BMI) 20.0-20.9, adult Start:30-Jan-2017 Instruction Type:Patient Education Patient Instructions Indication:Body mass index (BMI) 20.0-20.9, adult Start:30-Jan-2017 Instruction Type:Provider Instructions for Treatment Patient Instructions Indication:Screening for HPV (human papillomavirus) (Renamed from Encounter for screening for human papillomavirus (HPV)) Start:11-Aug-2016 Instruction Type:Provider Instructions for Treatment Patient Instructions Indication:Dysuria Start:08-Nov-2013 Instruction Type:Provider Instructions for Treatment Patient Instructions Indication:Well woman exam with routine gynecological exam Start:23-Sep-2013 Instruction Type:Provider Instructions for Treatment Patient Instructions Indication:Low Back Pain Start:23-Nov-2012 Instruction Type:Provider Instructions for Treatment Patient Instructions Indication:Low Back Pain Start:08-Nov-2012 Instruction Type:Provider Instructions for Treatment Patient Instructions Indication:Osteopenia Start:21-Sep-2012 Instruction Type:Provider Instructions for Treatment Name Dates Details Patient Instructions Indication:Non-smoker Start:27-Jul-2020 Instruction Type:Provider Instructions for Treatment How to access health informa tion online Indication:Non-smoker Start:27-Jul-2020 Instruction Type:Patient Education How to access health informa tion online - Detail Indication:Non-smoker Start:27-Jul-2020 Instruction Type:Patient Education How to access health informa tion online Indication:BMI less than 19,adult Start:23-Apr-2020 Instruction Type:Patient Education How to access health informa tion online - Detail Indication:BMI less than 19,adult Start:23-Apr-2020 Instruction Type:Patient Education Patient Instructions Indication:BMI less than 19,adult Start:23-Apr-2020 Instruction Type:Provider Instructions for Treatment How to access health informa tion online Indication:Body mass index (BMI) of 19.0-19.9 in adult Start:19-Feb-2020 Instruction Type:Patient Education How to access health informa tion online - Detail Indication:Body mass index (BMI) of 19.0-19.9 in adult Start:19-Feb-2020 Instruction Type:Patient Education Patient Instructions Indication:Body mass index (BMI) of 19.0-19.9 in adult Start:19-Feb-2020 Instruction Type:Provider Instructions for Treatment How to access health informa tion online Indication:Non-smoker Start:05-Feb-2020 Instruction Type:Patient Education How to access health informa tion online - Detail Indication:Non-smoker Start:05-Feb-2020 Instruction Type:Patient Education Patient Instructions Indication:Non-smoker Start:05-Feb-2020 Instruction Type:Provider Instructions for Treatment How to access health informa tion online Indication:BMI less than 19,adult Start:31-Jan-2020 Instruction Type:Patient Education How to access health informa tion online - Detail Indication:BMI less than 19,adult Start:31-Jan-2020 Instruction Type:Patient Education Patient Instructions Indication:BMI less than 19,adult Start:31-Jan-2020 Instruction Type:Provider Instructions for Treatment Patient Instructions Indication:Constipation Start:30-Dec-2019 Instruction Type:Provider Instructions for Treatment How to access health informa tion online Indication:Non-smoker Start:28-Oct-2019 Instruction Type:Patient Education How to access health informa tion online - Detail Indication:Non-smoker Start:28-Oct-2019 Instruction Type:Patient Education Patient Instructions Indication:Non-smoker Start:28-Oct-2019 Instruction Type:Provider Instructions for Treatment How to access health informa tion online Indication:Non-smoker Start:27-Sep-2019 Instruction Type:Patient Education How to access health informa tion online - Detail Indication:Non-smoker Start:27-Sep-2019 Instruction Type:Patient Education Patient Instructions Indication:Non-smoker Start:27-Sep-2019 Instruction Type:Provider Instructions for Treatment How to access health informa tion online Indication:Body mass index (BMI) 20.0-20.9, adult Start:08-Feb-2019 Instruction Type:Patient Education How to access health informa tion online - Detail Indication:Body mass index (BMI) 20.0-20.9, adult Start:08-Feb-2019 Instruction Type:Patient Education Patient Instructions Indication:Body mass index (BMI) 20.0-20.9, adult Start:08-Feb-2019 Instruction Type:Provider Instructions for Treatment How to access health informa tion online Indication:Non-smoker Start:27-Dec-2018 Instruction Type:Patient Education How to access health informa tion online - Detail Indication:Non-smoker Start:27-Dec-2018 Instruction Type:Patient Education Patient Instructions Indication:Non-smoker Start:27-Dec-2018 Instruction Type:Provider Instructions for Treatment How to access health informa tion online Indication:Body mass index (BMI) 20.0-20.9, adult Start:10-Oct-2018 Instruction Type:Patient Education How to access health informa tion online - Detail Indication:Body mass index (BMI) 20.0-20.9, adult Start:10-Oct-2018 Instruction Type:Patient Education Patient Instructions Indication:Body mass index (BMI) 20.0-20.9, adult Start:10-Oct-2018 Instruction Type:Provider Instructions for Treatment How to access health informa tion online Indication:Body mass index (BMI) 20.0-20.9, adult Start:13-Mar-2018 Instruction Type:Patient Education How to access health informa tion online - Detail Indication:Body mass index (BMI) 20.0-20.9, adult Start:13-Mar-2018 Instruction Type:Patient Education Patient Instructions Indication:Body mass index (BMI) 20.0-20.9, adult Start:13-Mar-2018 Instruction Type:Provider Instructions for Treatment How to access health informa tion online Indication:Body mass index (BMI) 20.0-20.9, adult Start:16-Feb-2018 Instruction Type:Patient Education How to access health informa tion online - Detail Indication:Body mass index (BMI) 20.0-20.9, adult Start:16-Feb-2018 Instruction Type:Patient Education Patient Instructions Indication:Body mass index (BMI) 20.0-20.9, adult Start:16-Feb-2018 Instruction Type:Provider Instructions for Treatment How to access health informa tion online Indication:Body mass index (BMI) 20.0-20.9, adult Start:07-Aug-2017 Instruction Type:Patient Education How to access health informa tion online - Detail Indication:Body mass index (BMI) 20.0-20.9, adult Start:07-Aug-2017 Instruction Type:Patient Education Patient Instructions Indication:Headache, acute Start:07-Aug-2017 Instruction Type:Provider Instructions for Treatment How to access health informa tion online Indication:Body mass index (BMI) 20.0-20.9, adult Start:30-Jan-2017 Instruction Type:Patient Education How to access health informa tion online - Detail Indication:Body mass index (BMI) 20.0-20.9, adult Start:30-Jan-2017 Instruction Type:Patient Education Patient Instructions Indication:Body mass index (BMI) 20.0-20.9, adult Start:30-Jan-2017 Instruction Type:Provider Instructions for Treatment Patient Instructions Indication:Screening for HPV (human papillomavirus) (Renamed from Encounter for screening for human papillomavirus (HPV)) Start:11-Aug-2016 Instruction Type:Provider Instructions for Treatment Patient Instructions Indication:Dysuria Start:08-Nov-2013 Instruction Type:Provider Instructions for Treatment Patient Instructions Indication:Well woman exam with routine gynecological exam Start:23-Sep-2013 Instruction Type:Provider Instructions for Treatment Patient Instructions Indication:Low Back Pain Start:23-Nov-2012 Instruction Type:Provider Instructions for Treatment Patient Instructions Indication:Low Back Pain Start:08-Nov-2012 Instruction Type:Provider Instructions for Treatment Patient Instructions Indication:Osteopenia Start:21-Sep-2012 Instruction Type:Provider Instructions for Treatment Name Dates Details Patient Instructions Indication:Non-smoker Start:27-Jul-2020 Instruction Type:Provider Instructions for Treatment How to access health informa tion online Indication:Non-smoker Start:27-Jul-2020 Instruction Type:Patient Education How to access health informa tion online - Detail Indication:Non-smoker Start:27-Jul-2020 Instruction Type:Patient Education How to access health informa tion online Indication:BMI less than 19,adult Start:23-Apr-2020 Instruction Type:Patient Education How to access health informa tion online - Detail Indication:BMI less than 19,adult Start:23-Apr-2020 Instruction Type:Patient Education Patient Instructions Indication:BMI less than 19,adult Start:23-Apr-2020 Instruction Type:Provider Instructions for Treatment How to access health informa tion online Indication:Body mass index (BMI) of 19.0-19.9 in adult Start:19-Feb-2020 Instruction Type:Patient Education How to access health informa tion online - Detail Indication:Body mass index (BMI) of 19.0-19.9 in adult Start:19-Feb-2020 Instruction Type:Patient Education Patient Instructions Indication:Body mass index (BMI) of 19.0-19.9 in adult Start:19-Feb-2020 Instruction Type:Provider Instructions for Treatment How to access health informa tion online Indication:Non-smoker Start:05-Feb-2020 Instruction Type:Patient Education How to access health informa tion online - Detail Indication:Non-smoker Start:05-Feb-2020 Instruction Type:Patient Education Patient Instructions Indication:Non-smoker Start:05-Feb-2020 Instruction Type:Provider Instructions for Treatment How to access health informa tion online Indication:BMI less than 19,adult Start:31-Jan-2020 Instruction Type:Patient Education How to access health informa tion online - Detail Indication:BMI less than 19,adult Start:31-Jan-2020 Instruction Type:Patient Education Patient Instructions Indication:BMI less than 19,adult Start:31-Jan-2020 Instruction Type:Provider Instructions for Treatment Patient Instructions Indication:Constipation Start:30-Dec-2019 Instruction Type:Provider Instructions for Treatment How to access health informa tion online Indication:Non-smoker Start:28-Oct-2019 Instruction Type:Patient Education How to access health informa tion online - Detail Indication:Non-smoker Start:28-Oct-2019 Instruction Type:Patient Education Patient Instructions Indication:Non-smoker Start:28-Oct-2019 Instruction Type:Provider Instructions for Treatment How to access health informa tion online Indication:Non-smoker Start:27-Sep-2019 Instruction Type:Patient Education How to access health informa tion online - Detail Indication:Non-smoker Start:27-Sep-2019 Instruction Type:Patient Education Patient Instructions Indication:Non-smoker Start:27-Sep-2019 Instruction Type:Provider Instructions for Treatment How to access health informa tion online Indication:Body mass index (BMI) 20.0-20.9, adult Start:08-Feb-2019 Instruction Type:Patient Education How to access health informa tion online - Detail Indication:Body mass index (BMI) 20.0-20.9, adult Start:08-Feb-2019 Instruction Type:Patient Education Patient Instructions Indication:Body mass index (BMI) 20.0-20.9, adult Start:08-Feb-2019 Instruction Type:Provider Instructions for Treatment How to access health informa tion online Indication:Non-smoker Start:27-Dec-2018 Instruction Type:Patient Education How to access health informa tion online - Detail Indication:Non-smoker Start:27-Dec-2018 Instruction Type:Patient Education Patient Instructions Indication:Non-smoker Start:27-Dec-2018 Instruction Type:Provider Instructions for Treatment How to access health informa tion online Indication:Body mass index (BMI) 20.0-20.9, adult Start:10-Oct-2018 Instruction Type:Patient Education How to access health informa tion online - Detail Indication:Body mass index (BMI) 20.0-20.9, adult Start:10-Oct-2018 Instruction Type:Patient Education Patient Instructions Indication:Body mass index (BMI) 20.0-20.9, adult Start:10-Oct-2018 Instruction Type:Provider Instructions for Treatment How to access health informa tion online Indication:Body mass index (BMI) 20.0-20.9, adult Start:13-Mar-2018 Instruction Type:Patient Education How to access health informa tion online - Detail Indication:Body mass index (BMI) 20.0-20.9, adult Start:13-Mar-2018 Instruction Type:Patient Education Patient Instructions Indication:Body mass index (BMI) 20.0-20.9, adult Start:13-Mar-2018 Instruction Type:Provider Instructions for Treatment How to access health informa tion online Indication:Body mass index (BMI) 20.0-20.9, adult Start:16-Feb-2018 Instruction Type:Patient Education How to access health informa tion online - Detail Indication:Body mass index (BMI) 20.0-20.9, adult Start:16-Feb-2018 Instruction Type:Patient Education Patient Instructions Indication:Body mass index (BMI) 20.0-20.9, adult Start:16-Feb-2018 Instruction Type:Provider Instructions for Treatment How to access health informa tion online Indication:Body mass index (BMI) 20.0-20.9, adult Start:07-Aug-2017 Instruction Type:Patient Education How to access health informa tion online - Detail Indication:Body mass index (BMI) 20.0-20.9, adult Start:07-Aug-2017 Instruction Type:Patient Education Patient Instructions Indication:Headache, acute Start:07-Aug-2017 Instruction Type:Provider Instructions for Treatment How to access health informa tion online Indication:Body mass index (BMI) 20.0-20.9, adult Start:30-Jan-2017 Instruction Type:Patient Education How to access health informa tion online - Detail Indication:Body mass index (BMI) 20.0-20.9, adult Start:30-Jan-2017 Instruction Type:Patient Education Patient Instructions Indication:Body mass index (BMI) 20.0-20.9, adult Start:30-Jan-2017 Instruction Type:Provider Instructions for Treatment Patient Instructions Indication:Screening for HPV (human papillomavirus) (Renamed from Encounter for screening for human papillomavirus (HPV)) Start:11-Aug-2016 Instruction Type:Provider Instructions for Treatment Patient Instructions Indication:Dysuria Start:08-Nov-2013 Instruction Type:Provider Instructions for Treatment Patient Instructions Indication:Well woman exam with routine gynecological exam Start:23-Sep-2013 Instruction Type:Provider Instructions for Treatment Patient Instructions Indication:Low Back Pain Start:23-Nov-2012 Instruction Type:Provider Instructions for Treatment Patient Instructions Indication:Low Back Pain Start:08-Nov-2012 Instruction Type:Provider Instructions for Treatment Patient Instructions Indication:Osteopenia Start:21-Sep-2012 Instruction Type:Provider Instructions for Treatment Name Dates Details How to access health informa tion online Indication:Body mass index (BMI) 20.0-20.9, adult Start:08-Feb-2019 Instruction Type:Patient Education How to access health informa tion online - Detail Indication:Body mass index (BMI) 20.0-20.9, adult Start:08-Feb-2019 Instruction Type:Patient Education Patient Instructions Indication:Body mass index (BMI) 20.0-20.9, adult Start:08-Feb-2019 Instruction Type:Provider Instructions for Treatment How to access health informa tion online Indication:Non-smoker Start:27-Dec-2018 Instruction Type:Patient Education How to access health informa tion online - Detail Indication:Non-smoker Start:27-Dec-2018 Instruction Type:Patient Education Patient Instructions Indication:Non-smoker Start:27-Dec-2018 Instruction Type:Provider Instructions for Treatment How to access health informa tion online Indication:Body mass index (BMI) 20.0-20.9, adult Start:10-Oct-2018 Instruction Type:Patient Education How to access health informa tion online - Detail Indication:Body mass index (BMI) 20.0-20.9, adult Start:10-Oct-2018 Instruction Type:Patient Education Patient Instructions Indication:Body mass index (BMI) 20.0-20.9, adult Start:10-Oct-2018 Instruction Type:Provider Instructions for Treatment How to access health informa tion online Indication:Body mass index (BMI) 20.0-20.9, adult Start:13-Mar-2018 Instruction Type:Patient Education How to access health informa tion online - Detail Indication:Body mass index (BMI) 20.0-20.9, adult Start:13-Mar-2018 Instruction Type:Patient Education Patient Instructions Indication:Body mass index (BMI) 20.0-20.9, adult Start:13-Mar-2018 Instruction Type:Provider Instructions for Treatment How to access health informa tion online Indication:Body mass index (BMI) 20.0-20.9, adult Start:16-Feb-2018 Instruction Type:Patient Education How to access health informa tion online - Detail Indication:Body mass index (BMI) 20.0-20.9, adult Start:16-Feb-2018 Instruction Type:Patient Education Patient Instructions Indication:Body mass index (BMI) 20.0-20.9, adult Start:16-Feb-2018 Instruction Type:Provider Instructions for Treatment How to access health informa tion online Indication:Body mass index (BMI) 20.0-20.9, adult Start:07-Aug-2017 Instruction Type:Patient Education How to access health informa tion online - Detail Indication:Body mass index (BMI) 20.0-20.9, adult Start:07-Aug-2017 Instruction Type:Patient Education Patient Instructions Indication:Headache, acute Start:07-Aug-2017 Instruction Type:Provider Instructions for Treatment How to access health informa tion online Indication:Body mass index (BMI) 20.0-20.9, adult Start:30-Jan-2017 Instruction Type:Patient Education How to access health informa tion online - Detail Indication:Body mass index (BMI) 20.0-20.9, adult Start:30-Jan-2017 Instruction Type:Patient Education Patient Instructions Indication:Body mass index (BMI) 20.0-20.9, adult Start:30-Jan-2017 Instruction Type:Provider Instructions for Treatment Patient Instructions Indication:Screening for HPV (human papillomavirus) (Renamed from Encounter for screening for human papillomavirus (HPV)) Start:11-Aug-2016 Instruction Type:Provider Instructions for Treatment Patient Instructions Indication:Dysuria Start:08-Nov-2013 Instruction Type:Provider Instructions for Treatment Patient Instructions Indication:Well woman exam with routine gynecological exam Start:23-Sep-2013 Instruction Type:Provider Instructions for Treatment Patient Instructions Indication:Low Back Pain Start:23-Nov-2012 Instruction Type:Provider Instructions for Treatment Patient Instructions Indication:Low Back Pain Start:08-Nov-2012 Instruction Type:Provider Instructions for Treatment Patient Instructions Indication:Osteopenia Start:21-Sep-2012 Instruction Type:Provider Instructions for Treatment Name Dates Details How to Access Health Informa tion Online using Patient Portal and [employer] Indication:Non-smoker Start:18-Nov-2020 Instruction Type:Patient Education Patient Instructions Indication:Non-smoker Start:18-Nov-2020 Instruction Type:Provider Instructions for Treatment Patient Instructions Indication:Non-smoker Start:27-Jul-2020 Instruction Type:Provider Instructions for Treatment How to access health informa tion online Indication:Non-smoker Start:27-Jul-2020 Instruction Type:Patient Education How to access health informa tion online - Detail Indication:Non-smoker Start:27-Jul-2020 Instruction Type:Patient Education How to access health informa tion online Indication:BMI less than 19,adult Start:23-Apr-2020 Instruction Type:Patient Education How to access health informa tion online - Detail Indication:BMI less than 19,adult Start:23-Apr-2020 Instruction Type:Patient Education Patient Instructions Indication:BMI less than 19,adult Start:23-Apr-2020 Instruction Type:Provider Instructions for Treatment How to access health informa tion online Indication:Body mass index (BMI) of 19.0-19.9 in adult Start:19-Feb-2020 Instruction Type:Patient Education How to access health informa tion online - Detail Indication:Body mass index (BMI) of 19.0-19.9 in adult Start:19-Feb-2020 Instruction Type:Patient Education Patient Instructions Indication:Body mass index (BMI) of 19.0-19.9 in adult Start:19-Feb-2020 Instruction Type:Provider Instructions for Treatment How to access health informa tion online Indication:Non-smoker Start:05-Feb-2020 Instruction Type:Patient Education How to access health informa tion online - Detail Indication:Non-smoker Start:05-Feb-2020 Instruction Type:Patient Education Patient Instructions Indication:Non-smoker Start:05-Feb-2020 Instruction Type:Provider Instructions for Treatment How to access health informa tion online Indication:BMI less than 19,adult Start:31-Jan-2020 Instruction Type:Patient Education How to access health informa tion online - Detail Indication:BMI less than 19,adult Start:31-Jan-2020 Instruction Type:Patient Education Patient Instructions Indication:BMI less than 19,adult Start:31-Jan-2020 Instruction Type:Provider Instructions for Treatment Patient Instructions Indication:Constipation Start:30-Dec-2019 Instruction Type:Provider Instructions for Treatment How to access health informa tion online Indication:Non-smoker Start:28-Oct-2019 Instruction Type:Patient Education How to access health informa tion online - Detail Indication:Non-smoker Start:28-Oct-2019 Instruction Type:Patient Education Patient Instructions Indication:Non-smoker Start:28-Oct-2019 Instruction Type:Provider Instructions for Treatment How to access health informa tion online Indication:Non-smoker Start:27-Sep-2019 Instruction Type:Patient Education How to access health informa tion online - Detail Indication:Non-smoker Start:27-Sep-2019 Instruction Type:Patient Education Patient Instructions Indication:Non-smoker Start:27-Sep-2019 Instruction Type:Provider Instructions for Treatment How to access health informa tion online Indication:Body mass index (BMI) 20.0-20.9, adult Start:08-Feb-2019 Instruction Type:Patient Education How to access health informa tion online - Detail Indication:Body mass index (BMI) 20.0-20.9, adult Start:08-Feb-2019 Instruction Type:Patient Education Patient Instructions Indication:Body mass index (BMI) 20.0-20.9, adult Start:08-Feb-2019 Instruction Type:Provider Instructions for Treatment How to access health informa tion online Indication:Non-smoker Start:27-Dec-2018 Instruction Type:Patient Education How to access health informa tion online - Detail Indication:Non-smoker Start:27-Dec-2018 Instruction Type:Patient Education Patient Instructions Indication:Non-smoker Start:27-Dec-2018 Instruction Type:Provider Instructions for Treatment How to access health informa tion online Indication:Body mass index (BMI) 20.0-20.9, adult Start:10-Oct-2018 Instruction Type:Patient Education How to access health informa tion online - Detail Indication:Body mass index (BMI) 20.0-20.9, adult Start:10-Oct-2018 Instruction Type:Patient Education Patient Instructions Indication:Body mass index (BMI) 20.0-20.9, adult Start:10-Oct-2018 Instruction Type:Provider Instructions for Treatment How to access health informa tion online Indication:Body mass index (BMI) 20.0-20.9, adult Start:13-Mar-2018 Instruction Type:Patient Education How to access health informa tion online - Detail Indication:Body mass index (BMI) 20.0-20.9, adult Start:13-Mar-2018 Instruction Type:Patient Education Patient Instructions Indication:Body mass index (BMI) 20.0-20.9, adult Start:13-Mar-2018 Instruction Type:Provider Instructions for Treatment How to access health informa tion online Indication:Body mass index (BMI) 20.0-20.9, adult Start:16-Feb-2018 Instruction Type:Patient Education How to access health informa tion online - Detail Indication:Body mass index (BMI) 20.0-20.9, adult Start:16-Feb-2018 Instruction Type:Patient Education Patient Instructions Indication:Body mass index (BMI) 20.0-20.9, adult Start:16-Feb-2018 Instruction Type:Provider Instructions for Treatment How to access health informa tion online Indication:Body mass index (BMI) 20.0-20.9, adult Start:07-Aug-2017 Instruction Type:Patient Education How to access health informa tion online - Detail Indication:Body mass index (BMI) 20.0-20.9, adult Start:07-Aug-2017 Instruction Type:Patient Education Patient Instructions Indication:Headache, acute Start:07-Aug-2017 Instruction Type:Provider Instructions for Treatment How to access health informa tion online Indication:Body mass index (BMI) 20.0-20.9, adult Start:30-Jan-2017 Instruction Type:Patient Education How to access health informa tion online - Detail Indication:Body mass index (BMI) 20.0-20.9, adult Start:30-Jan-2017 Instruction Type:Patient Education Patient Instructions Indication:Body mass index (BMI) 20.0-20.9, adult Start:30-Jan-2017 Instruction Type:Provider Instructions for Treatment Patient Instructions Indication:Screening for HPV (human papillomavirus) (Renamed from Encounter for screening for human papillomavirus (HPV)) Start:11-Aug-2016 Instruction Type:Provider Instructions for Treatment Patient Instructions Indication:Dysuria Start:08-Nov-2013 Instruction Type:Provider Instructions for Treatment Patient Instructions Indication:Well woman exam with routine gynecological exam Start:23-Sep-2013 Instruction Type:Provider Instructions for Treatment Patient Instructions Indication:Low Back Pain Start:23-Nov-2012 Instruction Type:Provider Instructions for Treatment Patient Instructions Indication:Low Back Pain Start:08-Nov-2012 Instruction Type:Provider Instructions for Treatment Patient Instructions Indication:Osteopenia Start:21-Sep-2012 Instruction Type:Provider Instructions for Treatment Name Dates Details How to Access Health Informa tion Online using Patient Portal and [employer] Apps Indication:Non-smoker Start:18-Nov-2020 Instruction Type:Patient Education Patient Instructions Indication:Non-smoker Start:18-Nov-2020 Instruction Type:Provider Instructions for Treatment Patient Instructions Indication:Non-smoker Start:27-Jul-2020 Instruction Type:Provider Instructions for Treatment How to access health informa tion online Indication:Non-smoker Start:27-Jul-2020 Instruction Type:Patient Education How to access health informa tion online - Detail Indication:Non-smoker Start:27-Jul-2020 Instruction Type:Patient Education How to access health informa tion online Indication:BMI less than 19,adult Start:23-Apr-2020 Instruction Type:Patient Education How to access health informa tion online - Detail Indication:BMI less than 19,adult Start:23-Apr-2020 Instruction Type:Patient Education Patient Instructions Indication:BMI less than 19,adult Start:23-Apr-2020 Instruction Type:Provider Instructions for Treatment How to access health informa tion online Indication:Body mass index (BMI) of 19.0-19.9 in adult Start:19-Feb-2020 Instruction Type:Patient Education How to access health informa tion online - Detail Indication:Body mass index (BMI) of 19.0-19.9 in adult Start:19-Feb-2020 Instruction Type:Patient Education Patient Instructions Indication:Body mass index (BMI) of 19.0-19.9 in adult Start:19-Feb-2020 Instruction Type:Provider Instructions for Treatment How to access health informa tion online Indication:Non-smoker Start:05-Feb-2020 Instruction Type:Patient Education How to access health informa tion online - Detail Indication:Non-smoker Start:05-Feb-2020 Instruction Type:Patient Education Patient Instructions Indication:Non-smoker Start:05-Feb-2020 Instruction Type:Provider Instructions for Treatment How to access health informa tion online Indication:BMI less than 19,adult Start:31-Jan-2020 Instruction Type:Patient Education How to access health informa tion online - Detail Indication:BMI less than 19,adult Start:31-Jan-2020 Instruction Type:Patient Education Patient Instructions Indication:BMI less than 19,adult Start:31-Jan-2020 Instruction Type:Provider Instructions for Treatment Patient Instructions Indication:Constipation Start:30-Dec-2019 Instruction Type:Provider Instructions for Treatment How to access health informa tion online Indication:Non-smoker Start:28-Oct-2019 Instruction Type:Patient Education How to access health informa tion online - Detail Indication:Non-smoker Start:28-Oct-2019 Instruction Type:Patient Education Patient Instructions Indication:Non-smoker Start:28-Oct-2019 Instruction Type:Provider Instructions for Treatment How to access health informa tion online Indication:Non-smoker Start:27-Sep-2019 Instruction Type:Patient Education How to access health informa tion online - Detail Indication:Non-smoker Start:27-Sep-2019 Instruction Type:Patient Education Patient Instructions Indication:Non-smoker Start:27-Sep-2019 Instruction Type:Provider Instructions for Treatment How to access health informa tion online Indication:Body mass index (BMI) 20.0-20.9, adult Start:08-Feb-2019 Instruction Type:Patient Education How to access health informa tion online - Detail Indication:Body mass index (BMI) 20.0-20.9, adult Start:08-Feb-2019 Instruction Type:Patient Education Patient Instructions Indication:Body mass index (BMI) 20.0-20.9, adult Start:08-Feb-2019 Instruction Type:Provider Instructions for Treatment How to access health informa tion online Indication:Non-smoker Start:27-Dec-2018 Instruction Type:Patient Education How to access health informa tion online - Detail Indication:Non-smoker Start:27-Dec-2018 Instruction Type:Patient Education Patient Instructions Indication:Non-smoker Start:27-Dec-2018 Instruction Type:Provider Instructions for Treatment How to access health informa tion online Indication:Body mass index (BMI) 20.0-20.9, adult Start:10-Oct-2018 Instruction Type:Patient Education How to access health informa tion online - Detail Indication:Body mass index (BMI) 20.0-20.9, adult Start:10-Oct-2018 Instruction Type:Patient Education Patient Instructions Indication:Body mass index (BMI) 20.0-20.9, adult Start:10-Oct-2018 Instruction Type:Provider Instructions for Treatment How to access health informa tion online Indication:Body mass index (BMI) 20.0-20.9, adult Start:13-Mar-2018 Instruction Type:Patient Education How to access health informa tion online - Detail Indication:Body mass index (BMI) 20.0-20.9, adult Start:13-Mar-2018 Instruction Type:Patient Education Patient Instructions Indication:Body mass index (BMI) 20.0-20.9, adult Start:13-Mar-2018 Instruction Type:Provider Instructions for Treatment How to access health informa tion online Indication:Body mass index (BMI) 20.0-20.9, adult Start:16-Feb-2018 Instruction Type:Patient Education How to access health informa tion online - Detail Indication:Body mass index (BMI) 20.0-20.9, adult Start:16-Feb-2018 Instruction Type:Patient Education Patient Instructions Indication:Body mass index (BMI) 20.0-20.9, adult Start:16-Feb-2018 Instruction Type:Provider Instructions for Treatment How to access health informa tion online Indication:Body mass index (BMI) 20.0-20.9, adult Start:07-Aug-2017 Instruction Type:Patient Education How to access health informa tion online - Detail Indication:Body mass index (BMI) 20.0-20.9, adult Start:07-Aug-2017 Instruction Type:Patient Education Patient Instructions Indication:Headache, acute Start:07-Aug-2017 Instruction Type:Provider Instructions for Treatment How to access health informa tion online Indication:Body mass index (BMI) 20.0-20.9, adult Start:30-Jan-2017 Instruction Type:Patient Education How to access health informa tion online - Detail Indication:Body mass index (BMI) 20.0-20.9, adult Start:30-Jan-2017 Instruction Type:Patient Education Patient Instructions Indication:Body mass index (BMI) 20.0-20.9, adult Start:30-Jan-2017 Instruction Type:Provider Instructions for Treatment Patient Instructions Indication:Screening for HPV (human papillomavirus) (Renamed from Encounter for screening for human papillomavirus (HPV)) Start:11-Aug-2016 Instruction Type:Provider Instructions for Treatment Patient Instructions Indication:Dysuria Start:08-Nov-2013 Instruction Type:Provider Instructions for Treatment Patient Instructions Indication:Well woman exam with routine gynecological exam Start:23-Sep-2013 Instruction Type:Provider Instructions for Treatment Patient Instructions Indication:Low Back Pain Start:23-Nov-2012 Instruction Type:Provider Instructions for Treatment Patient Instructions Indication:Low Back Pain Start:08-Nov-2012 Instruction Type:Provider Instructions for Treatment Patient Instructions Indication:Osteopenia Start:21-Sep-2012 Instruction Type:Provider Instructions for Treatment Name Dates Details How to Access Health Informa tion Online using Patient Portal and [employer] Apps Indication:Non-smoker Start:18-Nov-2020 Instruction Type:Patient Education Patient Instructions Indication:Non-smoker Start:18-Nov-2020 Instruction Type:Provider Instructions for Treatment Patient Instructions Indication:Non-smoker Start:27-Jul-2020 Instruction Type:Provider Instructions for Treatment How to access health informa tion online Indication:Non-smoker Start:27-Jul-2020 Instruction Type:Patient Education How to access health informa tion online - Detail Indication:Non-smoker Start:27-Jul-2020 Instruction Type:Patient Education How to access health informa tion online Indication:BMI less than 19,adult Start:23-Apr-2020 Instruction Type:Patient Education How to access health informa tion online - Detail Indication:BMI less than 19,adult Start:23-Apr-2020 Instruction Type:Patient Education Patient Instructions Indication:BMI less than 19,adult Start:23-Apr-2020 Instruction Type:Provider Instructions for Treatment How to access health informa tion online Indication:Body mass index (BMI) of 19.0-19.9 in adult Start:19-Feb-2020 Instruction Type:Patient Education How to access health informa tion online - Detail Indication:Body mass index (BMI) of 19.0-19.9 in adult Start:19-Feb-2020 Instruction Type:Patient Education Patient Instructions Indication:Body mass index (BMI) of 19.0-19.9 in adult Start:19-Feb-2020 Instruction Type:Provider Instructions for Treatment How to access health informa tion online Indication:Non-smoker Start:05-Feb-2020 Instruction Type:Patient Education How to access health informa tion online - Detail Indication:Non-smoker Start:05-Feb-2020 Instruction Type:Patient Education Patient Instructions Indication:Non-smoker Start:05-Feb-2020 Instruction Type:Provider Instructions for Treatment How to access health informa tion online Indication:BMI less than 19,adult Start:31-Jan-2020 Instruction Type:Patient Education How to access health informa tion online - Detail Indication:BMI less than 19,adult Start:31-Jan-2020 Instruction Type:Patient Education Patient Instructions Indication:BMI less than 19,adult Start:31-Jan-2020 Instruction Type:Provider Instructions for Treatment Patient Instructions Indication:Constipation Start:30-Dec-2019 Instruction Type:Provider Instructions for Treatment How to access health informa tion online Indication:Non-smoker Start:28-Oct-2019 Instruction Type:Patient Education How to access health informa tion online - Detail Indication:Non-smoker Start:28-Oct-2019 Instruction Type:Patient Education Patient Instructions Indication:Non-smoker Start:28-Oct-2019 Instruction Type:Provider Instructions for Treatment How to access health informa tion online Indication:Non-smoker Start:27-Sep-2019 Instruction Type:Patient Education How to access health informa tion online - Detail Indication:Non-smoker Start:27-Sep-2019 Instruction Type:Patient Education Patient Instructions Indication:Non-smoker Start:27-Sep-2019 Instruction Type:Provider Instructions for Treatment How to access health informa tion online Indication:Body mass index (BMI) 20.0-20.9, adult Start:08-Feb-2019 Instruction Type:Patient Education How to access health informa tion online - Detail Indication:Body mass index (BMI) 20.0-20.9, adult Start:08-Feb-2019 Instruction Type:Patient Education Patient Instructions Indication:Body mass index (BMI) 20.0-20.9, adult Start:08-Feb-2019 Instruction Type:Provider Instructions for Treatment How to access health informa tion online Indication:Non-smoker Start:27-Dec-2018 Instruction Type:Patient Education How to access health informa tion online - Detail Indication:Non-smoker Start:27-Dec-2018 Instruction Type:Patient Education Patient Instructions Indication:Non-smoker Start:27-Dec-2018 Instruction Type:Provider Instructions for Treatment How to access health informa tion online Indication:Body mass index (BMI) 20.0-20.9, adult Start:10-Oct-2018 Instruction Type:Patient Education How to access health informa tion online - Detail Indication:Body mass index (BMI) 20.0-20.9, adult Start:10-Oct-2018 Instruction Type:Patient Education Patient Instructions Indication:Body mass index (BMI) 20.0-20.9, adult Start:10-Oct-2018 Instruction Type:Provider Instructions for Treatment How to access health informa tion online Indication:Body mass index (BMI) 20.0-20.9, adult Start:13-Mar-2018 Instruction Type:Patient Education How to access health informa tion online - Detail Indication:Body mass index (BMI) 20.0-20.9, adult Start:13-Mar-2018 Instruction Type:Patient Education Patient Instructions Indication:Body mass index (BMI) 20.0-20.9, adult Start:13-Mar-2018 Instruction Type:Provider Instructions for Treatment How to access health informa tion online Indication:Body mass index (BMI) 20.0-20.9, adult Start:16-Feb-2018 Instruction Type:Patient Education How to access health informa tion online - Detail Indication:Body mass index (BMI) 20.0-20.9, adult Start:16-Feb-2018 Instruction Type:Patient Education Patient Instructions Indication:Body mass index (BMI) 20.0-20.9, adult Start:16-Feb-2018 Instruction Type:Provider Instructions for Treatment How to access health informa tion online Indication:Body mass index (BMI) 20.0-20.9, adult Start:07-Aug-2017 Instruction Type:Patient Education How to access health informa tion online - Detail Indication:Body mass index (BMI) 20.0-20.9, adult Start:07-Aug-2017 Instruction Type:Patient Education Patient Instructions Indication:Headache, acute Start:07-Aug-2017 Instruction Type:Provider Instructions for Treatment How to access health informa tion online Indication:Body mass index (BMI) 20.0-20.9, adult Start:30-Jan-2017 Instruction Type:Patient Education How to access health informa tion online - Detail Indication:Body mass index (BMI) 20.0-20.9, adult Start:30-Jan-2017 Instruction Type:Patient Education Patient Instructions Indication:Body mass index (BMI) 20.0-20.9, adult Start:30-Jan-2017 Instruction Type:Provider Instructions for Treatment Patient Instructions Indication:Screening for HPV (human papillomavirus) (Renamed from Encounter for screening for human papillomavirus (HPV)) Start:11-Aug-2016 Instruction Type:Provider Instructions for Treatment Patient Instructions Indication:Dysuria Start:08-Nov-2013 Instruction Type:Provider Instructions for Treatment Patient Instructions Indication:Well woman exam with routine gynecological exam Start:23-Sep-2013 Instruction Type:Provider Instructions for Treatment Patient Instructions Indication:Low Back Pain Start:23-Nov-2012 Instruction Type:Provider Instructions for Treatment Patient Instructions Indication:Low Back Pain Start:08-Nov-2012 Instruction Type:Provider Instructions for Treatment Patient Instructions Indication:Osteopenia Start:21-Sep-2012 Instruction Type:Provider Instructions for Treatment Name Dates Details How to access health informa tion online Indication:BMI less than 19,adult Start:23-Apr-2020 Instruction Type:Patient Education How to access health informa tion online - Detail Indication:BMI less than 19,adult Start:23-Apr-2020 Instruction Type:Patient Education Patient Instructions Indication:BMI less than 19,adult Start:23-Apr-2020 Instruction Type:Provider Instructions for Treatment How to access health informa tion online Indication:Body mass index (BMI) of 19.0-19.9 in adult Start:19-Feb-2020 Instruction Type:Patient Education How to access health informa tion online - Detail Indication:Body mass index (BMI) of 19.0-19.9 in adult Start:19-Feb-2020 Instruction Type:Patient Education Patient Instructions Indication:Body mass index (BMI) of 19.0-19.9 in adult Start:19-Feb-2020 Instruction Type:Provider Instructions for Treatment How to access health informa tion online Indication:Non-smoker Start:05-Feb-2020 Instruction Type:Patient Education How to access health informa tion online - Detail Indication:Non-smoker Start:05-Feb-2020 Instruction Type:Patient Education Patient Instructions Indication:Non-smoker Start:05-Feb-2020 Instruction Type:Provider Instructions for Treatment How to access health informa tion online Indication:BMI less than 19,adult Start:31-Jan-2020 Instruction Type:Patient Education How to access health informa tion online - Detail Indication:BMI less than 19,adult Start:31-Jan-2020 Instruction Type:Patient Education Patient Instructions Indication:BMI less than 19,adult Start:31-Jan-2020 Instruction Type:Provider Instructions for Treatment Patient Instructions Indication:Constipation Start:30-Dec-2019 Instruction Type:Provider Instructions for Treatment How to access health informa tion online Indication:Non-smoker Start:28-Oct-2019 Instruction Type:Patient Education How to access health informa tion online - Detail Indication:Non-smoker Start:28-Oct-2019 Instruction Type:Patient Education Patient Instructions Indication:Non-smoker Start:28-Oct-2019 Instruction Type:Provider Instructions for Treatment How to access health informa tion online Indication:Non-smoker Start:27-Sep-2019 Instruction Type:Patient Education How to access health informa tion online - Detail Indication:Non-smoker Start:27-Sep-2019 Instruction Type:Patient Education Patient Instructions Indication:Non-smoker Start:27-Sep-2019 Instruction Type:Provider Instructions for Treatment How to access health informa tion online Indication:Body mass index (BMI) 20.0-20.9, adult Start:08-Feb-2019 Instruction Type:Patient Education How to access health informa tion online - Detail Indication:Body mass index (BMI) 20.0-20.9, adult Start:08-Feb-2019 Instruction Type:Patient Education Patient Instructions Indication:Body mass index (BMI) 20.0-20.9, adult Start:08-Feb-2019 Instruction Type:Provider Instructions for Treatment How to access health informa tion online Indication:Non-smoker Start:27-Dec-2018 Instruction Type:Patient Education How to access health informa tion online - Detail Indication:Non-smoker Start:27-Dec-2018 Instruction Type:Patient Education Patient Instructions Indication:Non-smoker Start:27-Dec-2018 Instruction Type:Provider Instructions for Treatment How to access health informa tion online Indication:Body mass index (BMI) 20.0-20.9, adult Start:10-Oct-2018 Instruction Type:Patient Education How to access health informa tion online - Detail Indication:Body mass index (BMI) 20.0-20.9, adult Start:10-Oct-2018 Instruction Type:Patient Education Patient Instructions Indication:Body mass index (BMI) 20.0-20.9, adult Start:10-Oct-2018 Instruction Type:Provider Instructions for Treatment How to access health informa tion online Indication:Body mass index (BMI) 20.0-20.9, adult Start:13-Mar-2018 Instruction Type:Patient Education How to access health informa tion online - Detail Indication:Body mass index (BMI) 20.0-20.9, adult Start:13-Mar-2018 Instruction Type:Patient Education Patient Instructions Indication:Body mass index (BMI) 20.0-20.9, adult Start:13-Mar-2018 Instruction Type:Provider Instructions for Treatment How to access health informa tion online Indication:Body mass index (BMI) 20.0-20.9, adult Start:16-Feb-2018 Instruction Type:Patient Education How to access health informa tion online - Detail Indication:Body mass index (BMI) 20.0-20.9, adult Start:16-Feb-2018 Instruction Type:Patient Education Patient Instructions Indication:Body mass index (BMI) 20.0-20.9, adult Start:16-Feb-2018 Instruction Type:Provider Instructions for Treatment How to access health informa tion online Indication:Body mass index (BMI) 20.0-20.9, adult Start:07-Aug-2017 Instruction Type:Patient Education How to access health informa tion online - Detail Indication:Body mass index (BMI) 20.0-20.9, adult Start:07-Aug-2017 Instruction Type:Patient Education Patient Instructions Indication:Headache, acute Start:07-Aug-2017 Instruction Type:Provider Instructions for Treatment How to access health informa tion online Indication:Body mass index (BMI) 20.0-20.9, adult Start:30-Jan-2017 Instruction Type:Patient Education How to access health informa tion online - Detail Indication:Body mass index (BMI) 20.0-20.9, adult Start:30-Jan-2017 Instruction Type:Patient Education Patient Instructions Indication:Body mass index (BMI) 20.0-20.9, adult Start:30-Jan-2017 Instruction Type:Provider Instructions for Treatment Patient Instructions Indication:Screening for HPV (human papillomavirus) (Renamed from Encounter for screening for human papillomavirus (HPV)) Start:11-Aug-2016 Instruction Type:Provider Instructions for Treatment Patient Instructions Indication:Dysuria Start:08-Nov-2013 Instruction Type:Provider Instructions for Treatment Patient Instructions Indication:Well woman exam with routine gynecological exam Start:23-Sep-2013 Instruction Type:Provider Instructions for Treatment Patient Instructions Indication:Low Back Pain Start:23-Nov-2012 Instruction Type:Provider Instructions for Treatment Patient Instructions Indication:Low Back Pain Start:08-Nov-2012 Instruction Type:Provider Instructions for Treatment Patient Instructions Indication:Osteopenia Start:21-Sep-2012 Instruction Type:Provider Instructions for Treatment Advance Directives No Advanced Directives Records Found Name Dates Details Immunization Registry Alpha - Effective on 07/01/2019. Expiration date unspecified Effective:01-Jul-2019 Name Dates Details Immunization Registry [facility] - Effective on 07/01/2019. Expiration date unspecified Effective:01-Jul-2019 Name Dates Details Immunization Registry Alpha - Effective on 07/01/2019. Expiration date unspecified Effective:01-Jul-2019 Name Dates Details Immunization Registry Alpha - Effective on 07/01/2019. Expiration date unspecified Effective:01-Jul-2019 Name Dates Details Immunization Registry Alpha - Effective on 07/01/2019. Expiration date unspecified Effective:01-Jul-2019 Name Dates Details Immunization Registry Alpha - Effective on 07/01/2019. Expiration date unspecified Effective:01-Jul-2019 Name Dates Details Immunization Registry Alpha - Effective on 07/01/2019. Expiration date unspecified Effective:01-Jul-2019 Name Dates Details Immunization Registry Alpha - Effective on 07/01/2019. Expiration date unspecified Effective:01-Jul-2019 Name Dates Details Immunization Registry Alpha - Effective on 07/01/2019. Expiration date unspecified Effective:01-Jul-2019 Name Dates Details Immunization Registry Alpha - Effective on 07/01/2019. Expiration date unspecified Effective:01-Jul-2019 Name Dates Details Immunization Registry Alpha - Effective on 07/01/2019. Expiration date unspecified Effective:01-Jul-2019 Advance Directive Response Recorded Date/ Time Living Will Yes April 30, 2020 2:52pm Power of Heat Treat Technician Yes April 30 0 2:52pm Name Dates Details Immunization Registry Alpha - Effective on 07/01/2019. Expiration date unspecified Effective:01-Jul-2019 Name Dates Details Immunization Registry Alpha - Effective on 07/01/2019. Expiration date unspecified Effective:01-Jul-2019 Name Dates Details Immunization Registry Alpha - Effective on 07/01/2019. Expiration date unspecified Effective:01-Jul-2019 Name Dates Details Immunization Registry Alpha - Effective on 07/01/2019. Expiration date unspecified Effective:01-Jul-2019 Name Dates Details Immunization Registry Alpha - Effective on 07/01/2019. Expiration date unspecified Effective:01-Jul-2019 Name Dates Details Immunization Registry Alpha - Effective on 07/01/2019. Expiration date unspecified Effective:01-Jul-2019 Name Dates Details Immunization Registry Alpha - Effective on 07/01/2019. Expiration date unspecified Effective:01-Jul-2019 Advance Directive Response Recorded Date/ Time Living Will No November 23 8:24am Power of Heat Treat Technician No November 23, 2022 8:24am Name Dates Details Immunization Registry Alpha - Effective on 07/01/2019. Expiration date unspecified Effective:01-Jul-2019 Name Dates Details Immunization Registry Alpha - Effective on 07/01/2019. Expiration date unspecified Effective:01-Jul-2019 Name Dates Details Immunization Registry Alpha - Effective on 07/01/2019. Expiration date unspecified Effective:01-Jul-2019 Advance Directive Response Recorded Date/ Time Living Will No November 23, 2 023 9:24am Power of Heat Treat Technician No November 23, 2022 9:24am Name Dates Details Immunization Registry Alpha - Effective on 07/01/2019. Expiration date unspecified Effective:01-Jul-2019 Name Dates Details Immunization Registry Alpha - Effective on 07/01/2019. Expiration date unspecified Effective:01-Jul-2019 Name Dates Details Immunization Registry Alpha - Effective on 07/01/2019. Expiration date unspecified Effective:01-Jul-2019 Advance Directive Response Recorded Date/ Time Living Will No August 15, 2 023 7:53am Power of Heat Treat Technician No August 15, 2023 7:53am Advance Directive Response Recorded Date/ Time Name of Medical Power of Heat Treat Technician ERIC August 16, 2023 12:11pm Living Will Yes August 16, 2 023 12:11pm Power of Heat Treat Technician Yes August 16, 2023 12:11pm Advance Directive Response Recorded Date/ Time Name of Medical Power of Heat Treat Technician ON FILE January 10, 2024 3:06pm Living Will Yes January 10, 2024 3:06pm Power of Heat Treat Technician Yes January 09 3:06pm Chief Complaint and Reason for Visit Chief Complaint COVID TEST MS Chief Complaint MS Annual (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 Reason for Visit Atrophic vaginitis Chief Complaint MS Annual (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 BILATERAL THYROID NODULES SCREENING Reason for Visit Atrophic vaginitis Encounter for routine gynecological examination Thyroid nodule Chief Complaint BILATERAL THYROID NO DULES SCREENING MS Reason for Visit Thyroid nodule Chief Complaint laceration Chief Complaint laceration INFECTION IN STITCHES MS Reason for Visit Infected laceration Chief Complaint laceration INFECTION IN STITCHES MS Annual (BLOW DOWN HELPER) EORDER Reason for Visit Infected laceration Atrophic vaginitis Osteopenia Routine gynecological examination Chief Complaint INFECTION IN STITCHE S MS Annual (BLOW DOWN HELPER) EORDER THYROID NODULES Reason for Visit Infected laceration Atrophic vaginitis Osteopenia Routine gynecological examination Chief Complaint MS Annual (BLOW DOWN HELPER) EORDER THYROID NODULES YEARLY THYROID U/S 03/24 OSTEOPOROSIS, SCREENING Reason for Visit Atrophic vaginitis Osteopenia Routine gynecological examination Thyroid nodule Chief Complaint OSTEOPOROSIS, SCREEN ING MS Chief Complaint MS HEAD INJURY Chief Complaint MS HEAD INJURY HEAD INJURY Chief Complaint Amb Documentation CONCERN FOR SPOTS ON R LEG Reason for Visit Abnormal bruising History of colon polyps Chief Complaint Amb Documentation CONCERN FOR SPOTS ON R LEG MS Reason for Visit Abnormal bruising History of colon polyps Chief Complaint Admit Date PAIN- COPY PCP November 01, 2024 1 :36pm PAIN- COPY PCP February 03, 2025 9:50am Chief Complaint Admit Date PAIN- COPY PCP February 03, 2025 9:50am Annual (BLOW DOWN HELPER) March 25, 2025 8:05 am Reason for Visit Admit Date Encounter for routine gynecological exam ination March 25, 2025 8:05am Summary Purpose Additional Source Comments Goals (unrecognized section and content) Goals may be documented in a n alternate sectionGoals may be documented in an alternate sectionGoals may be documented in an alternate sectionGoals may be documented in an alternate sectionGoals may be documented in an alternate sectionGoals may be documented in an alternate sectionGoals may be documented in an alternate sectionGoals may be documented in an alternate sectionGoals may be documented in an alternate sectionGoals may be documented in an alternate sectionGoals may be documented in an alternate sectionGoals may be documented in an alternate sectionGoals may be documented in an alternate sectionGoals may be documented in an alternate sectionGoals may be documented in an alternate section Care Teams (unrecognized sec tion and content) Team Status: Active Member Role Status Dates Dr. Meghna Gregory , DO Family Provider Active Dr. Meghna Gregory DO Primary Care Provider Active Team Status: Inactive Member Role Status Dates Dr. Meghna Gregory , DO Primary Care Provider Active Dr. Perez Bates , DO Emergency Provider Active Team Status: Inactive Member Role Status Dates Dr. Meghna Gregory DO Primary Care Provider, Referr ing Provider Active Ciara Thompson PA, PA Attending Provider Active Team Status: Inactive Member Role Status Dates Dr. Meghna Gregory DO Primary Care Provider Active Dr. Justin Franco MD Attending Provider, Referring Provi pam Active Team Status: Inactive Member Role Status Dates Dr. Meghna Gregory DO Primary Care Provider Active VIK CAMP Attending Provider, Referring Provider Active Team Status: Inactive Member Role Status Dates Dr. Meghna Gregory DO Primary Care Provider Active Dr. Perez Baets , DO Attending Provider, Emergency Provider Active Team Status: Inactive Member Role Status Dates Dr. Meghna Gregory DO Primary Care Provider, Referr ing Provider Active Bety Torres HOSPICE CLINICAL MARKETER, HOSPICE CLINICAL MARKETER-C Attending Provider Active Team Status: Inactive Member Role Status Dates Dr. Meghna Gregory DO Primary Care Provider Active Dr. Dhiraj Evans MD Attending Provider, Referring P charlie Active Team Status: Inactive Member Role Status Dates Dr. Meghna Gregory , DO Primary Care Provider Active Bety Torres HOSPICE CLINICAL MARKETER, HOSPICE CLINICAL MARKETER-C Attending Provider, Referring Provider Active Team Status: Inactive Member Role Status Dates Dr. Meghna Gregory , DO Primary Care Provider Active Dr. Yoel Marquez MD Emergency Provider Active Team Status: Inactive Member Role Status Dates Dr. Meghna Gregory DO Primary Care Provider Active Dr. Mis Arrington DO Emergency Provider Active Team Status: Active Member Role Status Dates Dr. Meghna Gregory , DO Primary Care Provider Active Kassandra Light Attending Provider Active Team Status: Inactive Member Role Status Dates Dr. Meghna Gregory DO Primary Care Provider, Referr ing Provider Active Diego KUO, PA Attending Provider Active Team Status: Active Member Role Status Dates Dr. Meghna Gregory DO Primary Care Provider, Referr ing Provider Active Dr. Dionte Alva MD Attending Provider, Other Provider Active Team Status: Inactive Member Role Status Dates Dr. Meghna Gregory DO Primary Care Provider, Referr ing Provider Active Dr. Dionte Alva MD Attending Provider Active Team Status: Active Member Role Status Dates Dr. Meghna Gregory DO Primary Care Provider Active Team Status: Inactive Member Role Status Dates Dr. Meghna Gregory DO Primary Care Provider Active Start: November 01, 2024 End: November 01, 2024 Dr. Marisel Terry MD Attending Provider Active Start: November 01, 2024 End: November 01, 2024 Dr. Marsiel Terry MD Referring Provider Active Start: November 01, 2024 End: November 01, 2024 Team Status: Inactive Member Role Status Dates Dr. Meghna Gregory DO Primary Care Provider Active Start: February 03, 2025 End: February 03, 2025 Dr. Marisel Terry MD Attending Provider Active Start: February 03, 2025 End: February 03, 2025 Dr. Marisel Terry MD Referring Provider Active Start: February 03, 2025 End: February 03, 2025 Team Status: Inactive Member Role Status Dates Dr. Meghna Gregory DO Primary Care Provider Active Start: March 25, 2025 End: March 25, 2025 Dr. Meghna Gregory DO Referring Provider Active Start: March 25, 2025 End: March 25, 2025 Bety Torres NP, HOSPICE CLINICAL MARKETER-C Attending Provider Active Start: March 25, 2025 End: March 25, 2025 INFORMATION SOURCE (unrecogn ized section and content) DATE CREATED AUTHOR 12/20/2022 [facility] [place] DATE CREATED AUTHOR AUTHOR'S ORGANIZ ATION 03/28/2025 [facility] FOR RECORDS PERTAINING TO PATIENTS WHO ARE OR HAVE BEEN ENROLLED IN A CHEMICAL DEPENDENCY/SUBSTANCEABUSE PROGRAM, SOME INFORMATION MAY BE OMITTED. This clinical summary was aggregated from multiple sources. Caution should be exercised in using it in the provision of clinical care. This summary normalizes information from multiple sources, and as a consequence, information in this document may materially change the coding, format and clinical context of patient data. In addition, data may be omitted in some cases. CLINICAL DECISIONS SHOULD BE BASED ON THE PRIMARY CLINICAL RECORDS. [employer] provides no warranty or guarantee of the accuracy or completeness of information in this document.
== END | disposition home or self-care (01) ==
PROVIDERS: PCP Internal Medicine; Referring Provider Internal Medicine; Visit Provider Internal Medicine
DX: E04.2 Nontoxic multinodular goiter (principal)
CPT/HCPCS: 76536

== ENCOUNTER → 2025-04-10 | Outpatient (CLI) | payer MEDICARE, SELFPAY ==
--- NOTE | 2025-04-10 08:00 | BD_ITS ---
PROCEDURE: DEXA BONE DENSITY STUDY 04/10/2025 REASON FOR EXAM: F, age 70 y/o . Postmenopausal. TECHNIQUE: DEXA BONE DENSITY STUDY COMPARISON: Prior study dated April 06, 2023. FINDINGS: BMD and T-SCORES Lumbar spine: 0.815 g/cm2, T-score -2.1 Levels: L1 through L4 Change from prior: Loss of 0.7%. Left femoral neck: 0.679 g/cm2, T-score -1.4 Femoral neck comparison data not recommended for monitoring change. Left total hip: 0.725 g/cm2, T-score -1.8 Change from prior: Improvement of 1.4%. Right femoral neck: 0.648 g/cm2, T-score -1.8 Femoral neck comparison data not recommended for monitoring change. Right total hip: 0.681 g/cm2, T-score -2.1 Change from prior: Improvement of 4.6%. The World Health Organization has defined the following categories based on bone density: Normal bone density: T-score equal to or greater than -1.0 Osteopenia: T-score between -1.0 and -2.5 Osteoporosis: T-score equal to or less than -2.5 The patient does meet the pharmacological treatment recommendations for prevention of osteoporosis. BD/Dexa Bone Density Study IMPRESSION: OSTEOPENIA. Recommend follow-up as clinically warranted. Reading Location: [place] [id number]
--- NOTE | 2025-04-10 08:00 | BI_ITS ---
EXAM: SCRN MAMM (CAD)W/MARCIANO BILAT DATE: 04/10/2025 CLINICAL HISTORY: F, Age 70 y/o , SCREENING FOR BREAST CANCER No family history. TECHNIQUE: SCRN MAMM (CAD)W/MARCIANO BILAT COMPARISON: Prior exam(s) dated April 09, 2024.. FINDINGS: TISSUE DENSITY: The breasts are heterogeneously dense, which may obscure small masses. Bilateral Breast Mammographic Findings: No significant masses, calcifications or other abnormalities are identified. Stable small benign-appearing bilateral axillary lymph nodes. No suspicious masses, areas of developing architectural distortion, or suspicious calcifications. There has been no significant interval change. BI/SCRN MAMM (CAD)W/MARCIANO BILAT IMPRESSION: Stable examination. OVERALL FINAL ASSESSMENT BI-RADS 2: BENIGN RECOMMEND ANNUAL MAMMOGRAPHIC SCREENING. RECOMMENDATION: Routine annual follow-up in 1 Year A letter with findings and recommendations will be mailed to the patient. Reading Location: [place] [id number]
== END | disposition home or self-care (01) ==
PROVIDERS: PCP Internal Medicine; Referring Provider Internal Medicine; Visit Provider Internal Medicine
DX: Z12.31 Encounter for screening mammogram for malignant neoplasm of breast (principal); Z78.0 Asymptomatic menopausal state
CPT/HCPCS: 77063; 77067; 77080

== ENCOUNTER → 2025-05-06 | Outpatient (CLI) | payer MEDICARE, SELFPAY ==
[2025-05-06 10:13] LABS: Hematocrit 41.9 % (37-47); Hemoglobin 14.0 g/dL (12.0-15.0); Immature Granulocytes Count 0.020 X10^3/uL (0.0-0.0); Mean Corp Hgb Conc 33.4 g/dL (32-36); Mean Corpuscular Volume 97.9 fL (81-99); Mean Platelet Vol. 8.5 fl (6.2-12.0); NRBC Flagged by Analyzer 0 % (0-5); Platelet Count 435 K/mm3 (150-450); RBC Distribution Width CV 13.9 % (11.6-14.6); RBC Distribution Width SD 49.5 fl (35.1-43.9); Red Blood Count 4.28 M/mm3 (4.2-5.4); White Blood Count 5.9 K/mm3 (4.4-11.0)
[2025-05-06 10:39] LABS: AST(SGOT) 32 U/L (<=31); Alanine Aminotransfer ALT/SGPT 24 U/L (<=34); Albumin, Serum 4.3 g/dL (3.4-4.8); Alkaline Phosphatase 65 U/L (35-104); Anion Gap 10 (5-15); BUN 18 mg/dL (4-19); BUN/Creat Ratio 20.9 RATIO (10-20); Calcium,Total 9.3 mg/dL (7.6-11.0); Carbon Dioxide 27.0 mmol/L (21.0-32.0); Chloride 104 mmol/L (98-108); Globulin 2.2 g/dL (2.2-4.2); Glucose 85 mg/dL (70-99); Potassium 4.1 mmol/L (3.3-5.1)
== END | disposition home or self-care (01) ==
LOC: MTLAB 07:46
PROVIDERS: PCP Internal Medicine; Referring Provider Internal Medicine Rheumatology; Visit Provider Internal Medicine Rheumatology
DX: L40.59 Other psoriatic arthropathy (principal); L40.8 Other psoriasis; Z79.899 Other long term (current) drug therapy
CPT/HCPCS: 36415; 80053; 85025

== ENCOUNTER → 2025-08-05 | Outpatient (CLI) | payer MEDICARE, SELFPAY ==
[2025-08-05 09:49] LABS: Hematocrit 41.2 % (37-47); Hemoglobin 13.6 g/dL (12.0-15.0); Immature Granulocytes Count 0.020 X10^3/uL (0.0-0.0); Mean Corp Hgb Conc 33.0 g/dL (32-36); Mean Corpuscular Volume 97.2 fL (81-99); Mean Platelet Vol. 8.3 fl (6.2-12.0); NRBC Flagged by Analyzer 0 % (0-5); Platelet Count 475 K/mm3 (150-450); RBC Distribution Width CV 14.0 % (11.6-14.6); RBC Distribution Width SD 49.4 fl (35.1-43.9); Red Blood Count 4.24 M/mm3 (4.2-5.4); White Blood Count 6.8 K/mm3 (4.4-11.0)
[2025-08-05 10:28] LABS: AST(SGOT) 36 U/L (<=31); Alanine Aminotransfer ALT/SGPT 28 U/L (<=34); Albumin, Serum 4.3 g/dL (3.4-4.8); Alkaline Phosphatase 61 U/L (35-104); Anion Gap 9 (5-15); BUN 19 mg/dL (4-19); BUN/Creat Ratio 21.7 RATIO (10-20); Calcium,Total 9.5 mg/dL (7.6-11.0); Carbon Dioxide 28.2 mmol/L (21.0-32.0); Chloride 103 mmol/L (98-108); Globulin 2.2 g/dL (2.2-4.2); Glucose 87 mg/dL (70-99); Potassium 4.1 mmol/L (3.3-5.1)
== END | disposition home or self-care (01) ==
LOC: MTLAB 07:59
PROVIDERS: PCP Internal Medicine; Referring Provider Internal Medicine Rheumatology; Visit Provider Internal Medicine Rheumatology
DX: L40.59 Other psoriatic arthropathy (principal); Z79.899 Other long term (current) drug therapy
CPT/HCPCS: 36415; 80053; 85025